=== PATIENT | male | born 1935 | race Caucasian/White ===

== ENCOUNTER 2016-09-10 16:53 | Inpatient (IN) | payer OTHER, MEDICARE ==
[~2016-09-10] VITALS: Ht 190.5 cm; Wt 70.0 kg
[~2016-09-10 16:53] MED LIST: CIME300T PO; MEDR4PAK3 PO; POLY119S PO; Z.0.UNKNOWN
[2016-09-10 16:54] VITALS: BP 161/67; PULSE 65; RESP 15; TEMP 98.2; O2SAT 95
[2016-09-10 17:11] VITALS: BP 160/74; PULSE 76; RESP 20; O2SAT 96
[2016-09-10] MEDS ORDERED: DOXA1TAB34 PO (17:11)
[2016-09-10] MEDS ORDERED: DIGO0.25 PO (17:11)
[2016-09-10] MEDS ORDERED: OMEP20TA PO (17:11)
[2016-09-10] MEDS ORDERED: TAMS0.4C4 PO (17:11)
[2016-09-10] MEDS ORDERED: TRAZ50TA12 PO (17:11)
[2016-09-10] MEDS ORDERED: DILT60TA33 PO (17:11)
[2016-09-10] MEDS ORDERED: LOVA20TA PO (17:11)
[2016-09-10] MEDS ORDERED: SODIUM CHLORIDE 0.9% FLUSH 5 ML FLUSH IVF PRN (17:15)
[2016-09-10 17:24] VITALS: O2SAT 97
--- NOTE | 2016-09-10 17:24 | PD ---
HPI Chief Complaint: Abdominal Pain Time Seen by Provider: 17:20 Travel History International Travel<30 days: No Contact w/Intl Traveler<30days: No Traveled to known affect area: No History of Present Illness HPI Patient is an 7-year-old male presents to the emergency department for evaluation of abdominal pain. Patient states it is ongoing for 1 month but states it was worse today. Patient states the pain is between his pelvis and his belly button. He does report frequency with urination but denies any dysuria, hematuria, nausea, vomiting, fevers. He reports several watery bowel movements today. Patient's past medical history includes hypertension, hyperlipidemia, BPH, insomnia and atrial fibrillation. PFSH Past Medical History Atrial Fibrillation: Yes Blood Disorders: No High Cholesterol: Yes Insomnia: Yes Medical other: Yes (BPH) Tetanus Vaccination: > 5 Years Past Surgical History Surgical History: No Previous Surgery Social History Alcohol Use: Yes (4-5 beers daily) Tobacco Use: Yes Substance Use: No Allergies-Medications (Allergen,Severity, Reaction): Coded Allergies: No Known Allergies (Verified , 09/10/16) Uncoded Allergies: NKA (Allergy, Unknown, 03/31/03) Reported Meds & Prescriptions Reported Meds & Active Scripts Active Reported Doxazosin (Doxazosin Mesylate) 4 Mg Tab 4 Mg PO DAILY Trazodone (Trazodone HCl) 50 Mg Tab 50 Mg PO TID Omeprazole 20 Mg Tab 20 Mg PO DAILY Tamsulosin (Tamsulosin HCl) 0.4 Mg Cap 0.4 Mg PO HS Digoxin 0.25 Mg Tab 0.25 Mg PO DAILY Cardizem (Diltiazem HCl) 60 Mg Tab 180 Mg PO DAILY Lovastatin 20 Mg Tab 20 Mg PO DAILY Review of Systems Except as stated in HPI: all other systems reviewed are Neg General / Constitutional: No: Fever, Chills HENT: No: Headaches Cardiovascular: No: Chest Pain or Discomfort Respiratory: No: Shortness of Breath Gastrointestinal: Positive: Diarrhea, Abdominal Pain, No: Nausea, Vomiting, Loss of Appetite Genitourinary: Positive: Frequency, Pelvic Pain, No: Dysuria, Hematuria Neurologic: No: Dizziness Physical Exam Narrative GENERAL: Thin, well-developed, alert elderly judgment. Resting comfortably in no acute distress. SKIN: Warm and dry. HEAD: Atraumatic. Normocephalic. EYES: Pupils equal and round. No scleral icterus. No injection or drainage. ENT: No nasal bleeding or discharge. Mucous membranes pink and moist. NECK: Trachea midline. No JVD. CARDIOVASCULAR: Irregularly irregular. No murmur appreciated. RESPIRATORY: No accessory muscle use. Diminished in bases, no wheezes, rhonchi , or rales noted. Breath sounds equal bilaterally. GASTROINTESTINAL: Abdomen soft, mildly tender to palpation in suprapubic region. , nondistended. Hepatic and splenic margins not palpable. Positive bowel sounds , no rebound, no guarding. MUSCULOSKELETAL: No obvious deformities. No clubbing. No cyanosis. No edema. NEUROLOGICAL: Awake and alert. No obvious cranial nerve deficits. Motor grossly within normal limits. Normal speech. PSYCHIATRIC: Appropriate mood and affect; insight and judgment normal. Data Data Last Documented VS Vital Signs Date Time Temp Pulse Resp B/P Pulse Ox O2 Delivery O2 Flow Rate FiO2 09/10/16 19:08 0 09/10/16 19:07 98.4 78 155/67 95 Room Air Orders Complete Blood Count With Diff (09/10/16 17:11) Comprehensive Metabolic Panel (09/10/16 17:11) Lipase (09/10/16 17:11) Lactic Acid (09/10/16 17:11) Urinalysis - C+S If Indicated (09/10/16 17:11) Ct Abd/Pel W Iv Contrast(Rout) (09/10/16 17:11) Iv Access Insert/Monitor (09/10/16 17:11) Ecg Monitoring (09/10/16 17:11) Oximetry (09/10/16 17:11) Sodium Chloride 0.9% Flush (Ns Flush) (09/10/16 17:15) Bladder Scan PRN (09/10/16 17:11) Electrocardiogram (09/10/16 ) Iohexol 350 Inj (Omnipaque 350 Inj) (09/10/16 18:46) Labs Laboratory Tests Test 09/10/16 17:20 White Blood Count 11.0 TH/MM3 Red Blood Count 4.66 MIL/MM3 Hemoglobin 14.6 GM/DL Hematocrit 41.7 % Mean Corpuscular Volume 89.4 FL Mean Corpuscular Hemoglobin 31.4 PG Mean Corpuscular Hemoglobin 35.2 % Concent Red Cell Distribution Width 14.0 % Platelet Count 174 TH/MM3 Mean Platelet Volume 8.2 FL Neutrophils (%) (Auto) 80.9 % Lymphocytes (%) (Auto) 8.9 % Monocytes (%) (Auto) 9.4 % Eosinophils (%) (Auto) 0.4 % Basophils (%) (Auto) 0.4 % Neutrophils # (Auto) 8.9 TH/MM3 Lymphocytes # (Auto) 1.0 TH/MM3 Monocytes # (Auto) 1.0 TH/MM3 Eosinophils # (Auto) 0.0 TH/MM3 Basophils # (Auto) 0.0 TH/MM3 CBC Comment DIFF FINAL Differential Comment Urine Color YELLOW Urine Turbidity CLEAR Urine pH 6.0 Urine Specific Star 1.014 Urine Protein NEG mg/dL Urine Glucose (UA) NEG mg/dL Urine Ketones NEG mg/dL Urine Occult Blood SMALL Urine Nitrite NEG Urine Bilirubin NEG Urine Urobilinogen LESS THAN 2.0 MG/DL Urine Leukocyte Esterase TRACE Urine RBC 2 /hpf Urine WBC 2 /hpf Urine Squamous Epithelial 1 /hpf Cells Urine Bacteria RARE /hpf Urine Mucus FEW /lpf Microscopic Urinalysis Comment CULT NOT INDICATED Sodium Level 137 MEQ/L Potassium Level 4.4 MEQ/L Chloride Level 102 MEQ/L Carbon Dioxide Level 25.8 MEQ/L Anion Gap 9 MEQ/L Blood Urea Nitrogen 15 MG/DL Creatinine 0.69 MG/DL Estimat Glomerular Filtration 110 ML/MIN Rate Random Glucose 109 MG/DL Lactic Acid Level 1.1 mmol/L Calcium Level 9.2 MG/DL Total Bilirubin 0.5 MG/DL Aspartate Amino Transf 19 U/L (AST/SGOT) Alanine Aminotransferase 34 U/L (ALT/SGPT) Alkaline Phosphatase 81 U/L Total Protein 7.9 GM/DL Albumin 4.0 GM/DL Lipase 217 U/L [facility] Medical Decision Making Medical Screen Exam Complete: Yes Emergency Medical Condition: Yes Interpretation(s) Last Impressions Abdomen/Pelvis CT 09/10/16 1711 Signed Impressions: Service Date/Time: Saturday, September 10, 2016 18:41 - CONCLUSION: 1. Mild periportal edema the liver which can be associated with hepatitis. Otherwise no acute findings in the remainder of the abdomen and pelvis. Approximately 4.4 cm diverticulum noted off the distal duodenum or proximal jejunum. Moderate coronary calcifications. Omi Herndon MD Laboratory Tests Test 09/10/16 17:20 White Blood Count 11.0 TH/MM3 Red Blood Count 4.66 MIL/MM3 Hemoglobin 14.6 GM/DL Hematocrit 41.7 % Mean Corpuscular Volume 89.4 FL Mean Corpuscular Hemoglobin 31.4 PG Mean Corpuscular Hemoglobin 35.2 % Concent Red Cell Distribution Width 14.0 % Platelet Count 174 TH/MM3 Mean Platelet Volume 8.2 FL Neutrophils (%) (Auto) 80.9 % Lymphocytes (%) (Auto) 8.9 % Monocytes (%) (Auto) 9.4 % Eosinophils (%) (Auto) 0.4 % Basophils (%) (Auto) 0.4 % Neutrophils # (Auto) 8.9 TH/MM3 Lymphocytes # (Auto) 1.0 TH/MM3 Monocytes # (Auto) 1.0 TH/MM3 Eosinophils # (Auto) 0.0 TH/MM3 Basophils # (Auto) 0.0 TH/MM3 CBC Comment DIFF FINAL Differential Comment Urine Color YELLOW Urine Turbidity CLEAR Urine pH 6.0 Urine Specific Star 1.014 Urine Protein NEG mg/dL Urine Glucose (UA) NEG mg/dL Urine Ketones NEG mg/dL Urine Occult Blood SMALL Urine Nitrite NEG Urine Bilirubin NEG Urine Urobilinogen LESS THAN 2.0 MG/DL Urine Leukocyte Esterase TRACE Urine RBC 2 /hpf Urine WBC 2 /hpf Urine Squamous Epithelial 1 /hpf Cells Urine Bacteria RARE /hpf Urine Mucus FEW /lpf Microscopic Urinalysis Comment CULT NOT INDICATED Sodium Level 137 MEQ/L Potassium Level 4.4 MEQ/L Chloride Level 102 MEQ/L Carbon Dioxide Level 25.8 MEQ/L Anion Gap 9 MEQ/L Blood Urea Nitrogen 15 MG/DL Creatinine 0.69 MG/DL Estimat Glomerular Filtration 110 ML/MIN Rate Random Glucose 109 MG/DL Lactic Acid Level 1.1 mmol/L Calcium Level 9.2 MG/DL Total Bilirubin 0.5 MG/DL Aspartate Amino Transf 19 U/L (AST/SGOT) Alanine Aminotransferase 34 U/L (ALT/SGPT) Alkaline Phosphatase 81 U/L Total Protein 7.9 GM/DL Albumin 4.0 GM/DL Lipase 217 U/L Vital Signs Date Time Temp Pulse Resp B/P Pulse Ox O2 Delivery O2 Flow Rate FiO2 09/10/16 17:24 97 09/10/16 17:11 76 20 160/74 96 09/10/16 16:54 98.2 65 15 161/67 95 Differential Diagnosis Urinary tract infection versus urinary obstruction versus an enlarged prostate versus other Narrative Course Patient is an 81-year-old male presenting to emergency from with suprapubic pain and pressure has been ongoing for 1 month. Patient states he got worse today so he presented to the emergency department. Labs and imaging were ordered and pending. EKG shows atrial fibrillation with a rate of 82. Patient has a history of the same. CBC with elevated neutrophils, otherwise unremarkable Lactic acid is normal, chemistry is unremarkable, urinalysis is unremarkable with the exception of a small amount of occult blood. Patient is on tamsulosin as well as doxazosin for enlarged prostate. Which could be contributing to urinary retention. After patient urinated his bladder was scanned revealing less than 200 cc of urine in the bladder. CT scan of the abdomen and pelvis Mild periportal edema the liver which can be associated with hepatitis. Otherwise no acute findings in the remainder of the abdomen and pelvis. Approximately 4.4 cm diverticulum noted off the distal duodenum or proximal jejunum. Moderate coronary calcifications. Patient be kept under observation due to change in the presence of his abdominal pain. He is agreeable. Dr. Juan accepted admission. Patient placed under observation. Diagnosis Primary Impression: Abdominal pain Qualified Code: R10.30 - Lower abdominal pain Additional Impression: Diarrhea Qualified Code: R19.7 - Diarrhea, unspecified type Admitting Information Admitting Physician Requests: Observation Condition: Stable Nalini Medel Sep 10, 2016 17:24
[2016-09-10 17:35] LABS: AUTOMATED NEUTROPHIL # 8.9 TH/MM3 (1.8-7.7); BASOPHIL % 0.4 % (0.0-2.0); EOSINOPHIL % 0.4 % (0.0-4.0); HEMATOCRIT 41.7 % (39.0-51.0); HEMO FLAGS DIFF FINAL; LYMPH % 8.9 % (9.0-44.0); MEAN CELL VOLUME 89.4 FL (80.0-100.0); MEAN CORPUSCULAR HEMOGLOBIN 31.4 PG (27.0-34.0); MEAN CORPUSCULAR HGB CONC 35.2 % (32.0-36.0); MONO % 9.4 % (0.0-8.0); NEUT % 80.9 % (16.0-70.0); PLATELET COUNT 174 TH/MM3 (150-450); RED BLOOD COUNT 4.66 MIL/MM3 (4.50-5.90)
[2016-09-10 17:46] LABS: BACTERIA, URINE RARE /hpf; BLOOD, URINE SMALL (NEG); GLUCOSE,URINE NEG (NEG); KETONE, URINE NEG (NEG); MUCUS URINE FEW /lpf (OCC); NITRITE,URINE NEG (NEG); SQUAMOUS EPITHELIAL CELL URINE 1 /hpf (0-5); URINE COLOR YELLOW (YELLW/STRAW)
[2016-09-10 17:49] LABS: COMMENT (UR) CULT NOT INDICATED; CULTURE IF INDICATED CULT NOT INDICATED
[2016-09-10 18:14] LABS: ALT (GPT) 34 U/L (12-78); ANION GAP 9 MEQ/L (5-15); AST (GOT) 19 U/L (15-37); BICARBONATE 25.8 MEQ/L (21.0-32.0); BLOOD UREA NITROGEN 15 MG/DL (7-18); CHLORIDE 102 MEQ/L (98-107); GLOMERULAR FILTRATION RATE 110 ML/MIN (>89); POTASSIUM 4.4 MEQ/L (3.5-5.1); SODIUM (NA) 137 MEQ/L (136-145)
[2016-09-10 18:17] LABS: ALKALINE PHOSPHATASE 81 U/L (45-117); TOTAL BILIRUBIN ADULT 0.5 MG/DL (0.2-1.0)
[2016-09-10] MEDS ORDERED: IOHEXOL 350 MG/ML 10 ML VIAL (for RAD DIAG) IV ONE (18:46)
[2016-09-10 19:07] VITALS: BP 155/67; PULSE 78; RESP 18; TEMP 98.4; O2SAT 95
--- NOTE | 2016-09-10 19:26 | RADRPT ---
EXAM DATE/TIME: 09/10/2016 18:41 [facility] COMPARISON: No previous studies available for comparison. INDICATIONS : Abdomen pain for one month. IV CONTRAST: 96 cc Omnipaque 350 (iohexol) IV ORAL CONTRAST: No oral contrast ingested. RADIATION DOSE: 5.96 CTDIvol (mGy) MEDICAL HISTORY : A Fib SURGICAL HISTORY : None. ENCOUNTER: Initial ACUITY: 1 day PAIN SCALE: 5/10 LOCATION: Abdomen TECHNIQUE: Volumetric scanning of the abdomen and pelvis was performed. Using automated exposure control and ad justment of the mA and/or kV according to patient size, radiation dose was kept as low as reasonably achievable to obtain optimal diagnostic quality images. FINDINGS: Minimal dependent atelectasis in the lungs. There is some mild periportal edema the liver. Pancreas, spleen, adrenals and kidneys demonstrate no acute findings. No bowel obstruction. No free air or free fluid. No adenopathy. Atherosclerotic aorta and branches wi thout aneurysm. No acute bony abnormalities. CONCLUSION: 1. Mild periportal edema the liver which can be associated with hepatitis. Otherwise no acute finding s in the remainder of the abdomen and pelvis. Approximately 4.4 cm diverticulum noted off the distal duodenum or proximal jejunum. Moderate coronary calcifications. Omi Herndon MD on September 10, 2016 at 19:19 Board Certified Radiologist. This report was verified electronically.
--- NOTE | 2016-09-10 20:59 | HHI.HP ---
[facility] Service [facility] Primary Care Physician Maikol Blackman MD Admission Diagnosis ABD PAIN, DIARRHEA Diagnoses: Chief Complaint: Abdominal pain Travel History International Travel<30 Days: No Contact w/Intl Traveler <30 Da: No Traveled to Known Affected Are: No History of Present Illness History from patient, ER provider communication, and review of medical records. Patient reported that he came to the hospital because he has been having abdominal pain. He stated that this pain has started a few months ago but is getting worse in the past few days. He reports of diarrhea. However states that it was more of soft loose stool a few times a day. He states is not much amount. More like in the tissue paper when he wipes. He denies any associated fever. Denies any nausea or vomiting. When asked but with abdominal pain is, patient mostly points to the suprapubic area. Patient takes aspirin at home on a as needed basis. He also takes ibuprofen twice a day. He stated that he has osteoarthritis for which he was taking these medications. He reports that his abdominal pain is much better every time he drinks milk. Patient states he has had colonoscopy previously and that it was normal. However never had endoscopy. When asked about melena, patient status some of his loose bowel movements at times would be exploratory and would be black in color. Denies being on iron pills at home. Patient denies any burning when he urinates or pain when he urinates. However he states that he has BPH and does get up in the middle of the night about 5 times a night to urinate. He does have hesitancy/urgency/weak stream. Review of Systems Except as stated in HPI: all other systems reviewed are Neg Past Family Social History Past Medical History Hypertension Atrial fibrillation BPH Past Surgical History Left shoulder replacement Reported Medications Patient's medications listed in EMRreviewed. Patient stated that he brought a list of his medications to hospital and went through with a pharmacy technician program director. Allergies: Coded Allergies: No Known Allergies (Verified , 09/10/16) Uncoded Allergies: NKA (Allergy, Unknown, 03/31/03) Family History Reports of family history of bladder cancer in his son who is currently being treated for it. Social History Smokes about a pack a day. Denies any alcohol abuse or drug abuse. Does drink about 2 beers a day. Physical Exam Vital Signs Vital Signs Date Time Temp Pulse Resp B/P Pulse Ox O2 Delivery O2 Flow Rate FiO2 09/10/16 19:08 0 09/10/16 19:07 98.4 78 18 155/67 95 Room Air 09/10/16 17:24 97 09/10/16 17:11 76 20 160/74 96 09/10/16 16:54 98.2 65 15 161/67 95 Physical Exam GENERAL: This is a well-nourished, well-developed patient, in no apparent distress. SKIN: No rashes, ecchymoses or lesions. Cool and dry. HEAD: Atraumatic. Normocephalic. No temporal or scalp tenderness. EYES: No scleral icterus. No injection or drainage. ENT: Nose without bleeding, purulent drainage or septal hematoma. Airway patent. NECK: Trachea midline. No JVD CARDIOVASCULAR: Regular rate and rhythm without murmurs, gallops, or rubs. RESPIRATORY: Clear to auscultation. Breath sounds equal bilaterally. No wheezes , rales, or rhonchi. GASTROINTESTINAL: Abdomen soft, non-tender, nondistended.No guarding. Mild suprapubic tenderness. MUSCULOSKELETAL: Extremities without clubbing, cyanosis, or edema. No calf tenderness. NEUROLOGICAL: Awake and alert. No focal deficits. Normal speech. Laboratory Laboratory Tests Test 09/10/16 17:20 White Blood Count 11.0 Red Blood Count 4.66 Hemoglobin 14.6 Hematocrit 41.7 Mean Corpuscular Volume 89.4 Mean Corpuscular Hemoglobin 31.4 Mean Corpuscular Hemoglobin 35.2 Concent Red Cell Distribution Width 14.0 Platelet Count 174 Mean Platelet Volume 8.2 Neutrophils (%) (Auto) 80.9 Lymphocytes (%) (Auto) 8.9 Monocytes (%) (Auto) 9.4 Eosinophils (%) (Auto) 0.4 Basophils (%) (Auto) 0.4 Neutrophils # (Auto) 8.9 Lymphocytes # (Auto) 1.0 Monocytes # (Auto) 1.0 Eosinophils # (Auto) 0.0 Basophils # (Auto) 0.0 CBC Comment DIFF FINAL Differential Comment Urine Color YELLOW Urine Turbidity CLEAR Urine pH 6.0 Urine Specific [place] 1.014 Urine Protein NEG Urine Glucose (UA) NEG Urine Ketones NEG Urine Occult Blood SMALL Urine Nitrite NEG Urine Bilirubin NEG Urine Urobilinogen LESS THAN 2.0 Urine Leukocyte Esterase TRACE Urine RBC 2 Urine WBC 2 Urine Squamous Epithelial 1 Cells Urine Bacteria RARE Urine Mucus FEW Microscopic Urinalysis Comment CULT NOT INDICATED Sodium Level 137 Potassium Level 4.4 Chloride Level 102 Carbon Dioxide Level 25.8 Anion Gap 9 Blood Urea Nitrogen 15 Creatinine 0.69 Estimat Glomerular Filtration 110 Rate Random Glucose 109 Lactic Acid Level 1.1 Calcium Level 9.2 Total Bilirubin 0.5 Aspartate Amino Transf 19 (AST/SGOT) Alanine Aminotransferase 34 (ALT/SGPT) Alkaline Phosphatase 81 Total Protein 7.9 Albumin 4.0 Lipase 217 Result Diagram: 09/10/16 1720 09/10/16 172 Imaging Last 48 hours Impressions Abdomen/Pelvis CT 09/10/16 171 Signed Impressions: Service Date/Time: Saturday, September 10, 2016 18:41 - CONCLUSION: 1. Mild periportal edema the liver which can be associated with hepatitis. Otherwise no acute findings in the remainder of the abdomen and pelvis. Approximately 4.4 cm diverticulum noted off the distal duodenum or proximal jejunum. Moderate coronary calcifications. Omi Herndon MD Assessment and Plan Problem List: (1) Abdominal pain ICD Code: R10.9 Status: Acute (2) Diarrhea ICD Code: R19.7 Status: Acute Assessment and Plan Impression: Abdominal pain versus suprapubic painetiology unclear. However patient has been quite symptomatic. Denies family history of bladder cancer. Has recent NSAID use with report of melena. We'll need to rule out GI bleed versus intrinsic bladder problems. Hypertension Atrial fibrillation BPH Plan: Pantoprazole 40 mg daily, first dose now. Sucralfate 1 g by mouth every before meals and at bedtime, first dose now. Hemoglobin hematocrit repeat now. Stool for guaiac. GI consult for possible EGD. Patient is educated on use of NSAIDs. Regarding his pain in the suprapubic area, we would obtain ultrasound of the renal/bladder/prostate. Based on the above findings, we would consider urology consult. Patient states he is pretty much unremarkable for any acute pathology. Pain control with morphine 2 mg IV every 4 hours when necessary. DVT prophylaxiswith Lovenox. Discussed Condition With patient, ER [employer] Problem Qualifiers (1) Abdominal pain: Qualified Code: R10.30 - Lower abdominal pain (2) Diarrhea: Qualified Code: R19.7 - Diarrhea, unspecified type Diaz Juan MD Sep 10, 2016 20:59
[2016-09-10 21:00] VITALS: BP 123/68; PULSE 68; RESP 18; TEMP 98; O2SAT 97
[2016-09-10] MEDS ORDERED: NALOXONE HCL 0.4 MG/ML AMP IV PRN (21:30)
[2016-09-10] MEDS ORDERED: PANTOPRAZOLE SOD 40 MG DELAYED RELEASE TAB PO ONE (21:30)
[2016-09-10] MEDS ORDERED: SUCRALFATE 1 GM TAB PO ONE (21:30)
[2016-09-10] MEDS ORDERED: SODIUM CHLORIDE 0.9% FLUSH 5 ML FLUSH FLUSH PRN (21:30)
[2016-09-10 23:58] LABS: HEMATOCRIT 40.5 % (39.0-51.0); REVIEW FLAG FINAL
[2016-09-11] VITALS (8 sets, daily range): BP systolic 110–166; BP diastolic 62–78; PULSE 65–78; RESP 17–21; TEMP 98–98.4; O2SAT 93–98
[2016-09-11 04:17] LABS: AUTOMATED NEUTROPHIL # 5.9 TH/MM3 (1.8-7.7); BASOPHIL # 0.1 TH/MM3 (0-0.2); BASOPHIL % 0.6 % (0.0-2.0); EOSINOPHIL # 0.1 TH/MM3 (0-0.4); EOSINOPHIL % 1.5 % (0.0-4.0); HEMATOCRIT 41.9 % (39.0-51.0); HEMO FLAGS DIFF FINAL; LYMPH % 20.9 % (9.0-44.0); LYMPHOCYTE # 1.9 TH/MM3 (1.0-4.8); MEAN CELL VOLUME 89.6 FL (80.0-100.0); MEAN CORPUSCULAR HGB CONC 34.6 % (32.0-36.0); MONO % 10.8 % (0.0-8.0); NEUT % 66.2 % (16.0-70.0); PLATELET COUNT 180 TH/MM3 (150-450); RED BLOOD COUNT 4.67 MIL/MM3 (4.50-5.90); WHITE BLOOD COUNT 8.9 TH/MM3 (4.0-11.0)
[2016-09-11 04:42] LABS: BICARBONATE 29.4 MEQ/L (21.0-32.0); POTASSIUM 3.8 MEQ/L (3.5-5.1)
[2016-09-11] MEDS ORDERED: SUCRALFATE 1 GM TAB PO SCH (07:00)
[2016-09-11] MEDS: SODIUM CHLORIDE 0.9% FLUSH 5 ML FLUSH FLUSH SCH ×2 (09:00→21:11)
[2016-09-11] MEDS ORDERED: PANTOPRAZOLE SOD 40 MG DELAYED RELEASE TAB PO SCH (09:00)
--- NOTE | 2016-09-11 09:11 | PD.CONS ---
HPI History of Present Illness This is a 81 year old male patient who came to the ER for evaluation of abdominal pain. He reports that he has been having lower abdominal pain that he describes as mild cramping for about a month. This suddenly worsened yesterday and reports the pain was much more severe in nature. There is no radiation. He cannot identify any aggravating or alleviating factors. He has also been having frequent diarrhea with 6-8 loose yellowish stools per day. There is some report of intermittent melena, although the patient currently denies this. He also is denying any associated nausea, vomiting. He denies any fever, chills, diaphoretic episodes, weight loss, melena, or hematochezia. He does have GERD, but this is well controlled with omeprazole and he denies any breakthrough symptoms. He denies any recent travel, suspicious, antibiotic use, or sick contacts. He does report that he was evaluated with a colonoscopy about 3-4 months ago and that he had a polyp removed, but that it was otherwise normal. He cannot recall who did this. I did look at our office records and he has not been seen in our office. He does take Ibuprofen i po BID and occasional ASA use. He denies any hx of liver disease, GIB, or PUD. (Lupe Oden) PFSH Past Medical History Hypertension Atrial fibrillation BPH Hiatal hernia GERD Hyperlipidemia Past Surgical History Left shoulder replacement Colonoscopy (Lupe Oden) Coded Allergies: No Known Allergies (Verified , 09/10/16) Uncoded Allergies: NKA (Allergy, Unknown, 03/31/03) Medications Allergies Coded Allergies Type Severity Reaction Last Updated Verified No Known Allergies 09/10/16 Yes Uncoded Allergies Type Severity Reaction Last Updated Verified NKA Allergy Unknown 03/31/03 Active Scripts Medications Dose Route/Sig Days Date Category Doxazosin (Doxazosin Mesylate) 4 Mg Tab 4 Mg PO DAILY 09/10/16 Reported Trazodone (Trazodone HCl) 50 Mg Tab 50 Mg PO TID 09/10/16 Reported Omeprazole 20 Mg Tab 20 Mg PO DAILY 09/10/16 Reported Tamsulosin (Tamsulosin HCl) 0.4 Mg Cap 0.4 Mg PO HS 09/10/16 Reported Digoxin 0.25 Mg Tab 0.25 Mg PO DAILY 09/10/16 Reported Cardizem (Diltiazem HCl) 60 Mg Tab 180 Mg PO DAILY 09/10/16 Reported Lovastatin 20 Mg Tab 20 Mg PO DAILY 09/10/16 Reported Allergies Coded Allergies Type Severity Reaction Last Updated Verified No Known Allergies 09/10/16 Yes Uncoded Allergies Type Severity Reaction Last Updated Verified NKA Allergy Unknown 03/31/03 Active Scripts Medications Dose Route/Sig Days Date Category Doxazosin (Doxazosin Mesylate) 4 Mg Tab 4 Mg PO DAILY 09/10/16 Reported Trazodone (Trazodone HCl) 50 Mg Tab 50 Mg PO TID 09/10/16 Reported Omeprazole 20 Mg Tab 20 Mg PO DAILY 09/10/16 Reported Tamsulosin (Tamsulosin HCl) 0.4 Mg Cap 0.4 Mg PO HS 09/10/16 Reported Digoxin 0.25 Mg Tab 0.25 Mg PO DAILY 09/10/16 Reported Cardizem (Diltiazem HCl) 60 Mg Tab 180 Mg PO DAILY 09/10/16 Reported Lovastatin 20 Mg Tab 20 Mg PO DAILY 09/10/16 Reported Family History Reports of family history of bladder cancer in his son Social History 1 PPD x 65 years Does drink about 2 beers a day. No illicit drug use. (Lupe Oden) Review of Systems Constitutional: COMPLAINS OF: Fatigue Respiratory: DENIES: Cough Cardiovascular: DENIES: Chest pain Gastrointestinal: COMPLAINS OF: Abdominal pain, Diarrhea, DENIES: Black stools , Bloody stools, Constipation, Nausea, Vomiting, Heartburn, Hematemesis Genitourinary: DENIES: Urgency, Hematuria, Dysuria Integumentary: DENIES: Abnormal pigmentation Hematologic/lymphatic: DENIES: Bruising Psychiatric: DENIES: Confusion (Lupe Oden) GI Exam Vitals I&O Vital Signs Date Time Temp Pulse Resp B/P Pulse Ox O2 Delivery O2 Flow Rate FiO2 09/11/16 07:17 98.1 68 17 139/78 97 09/11/16 04:01 65 09/11/16 04:00 98.0 78 18 126/74 98 09/11/16 00:00 98.4 77 18 132/78 98 09/10/16 21:00 98.0 68 18 123/68 97 09/10/16 19:08 0 09/10/16 19:07 98.4 78 18 155/67 95 Room Air 09/10/16 17:24 97 09/10/16 17:11 76 20 160/74 96 09/10/16 16:54 98.2 65 15 161/67 95 Imaging Last Impressions Abdomen/Pelvis CT 09/10/16 1711 Signed Impressions: Service Date/Time: Saturday, September 10, 2016 18:41 - CONCLUSION: 1. Mild periportal edema the liver which can be associated with hepatitis. Otherwise no acute findings in the remainder of the abdomen and pelvis. Approximately 4.4 cm diverticulum noted off the distal duodenum or proximal jejunum. Moderate coronary calcifications. Omi Herndon MD Laboratory Test 09/10/16 09/10/16 09/11/16 17:20 23:45 03:53 White Blood Count 11.0 TH/MM3 8.9 TH/MM3 Red Blood Count 4.66 MIL/MM3 4.67 MIL/MM3 Hemoglobin 14.6 GM/DL 14.2 GM/DL 14.5 GM/DL Hematocrit 41.7 % 40.5 % 41.9 % Mean Corpuscular Volume 89.4 FL 89.6 FL Mean Corpuscular Hemoglobin 31.4 PG 31.0 PG Mean Corpuscular Hemoglobin 35.2 % 34.6 % Concent Red Cell Distribution Width 14.0 % 14.0 % Platelet Count 174 TH/MM3 180 TH/MM3 Mean Platelet Volume 8.2 FL 7.9 FL Neutrophils (%) (Auto) 80.9 % 66.2 % Lymphocytes (%) (Auto) 8.9 % 20.9 % Monocytes (%) (Auto) 9.4 % 10.8 % Eosinophils (%) (Auto) 0.4 % 1.5 % Basophils (%) (Auto) 0.4 % 0.6 % Neutrophils # (Auto) 8.9 TH/MM3 5.9 TH/MM3 Lymphocytes # (Auto) 1.0 TH/MM3 1.9 TH/MM3 Monocytes # (Auto) 1.0 TH/MM3 1.0 TH/MM3 Eosinophils # (Auto) 0.0 TH/MM3 0.1 TH/MM3 Basophils # (Auto) 0.0 TH/MM3 0.1 TH/MM3 CBC Comment DIFF FINAL DIFF FINAL Differential Comment Urine Color YELLOW Urine Turbidity CLEAR Urine pH 6.0 Urine Specific [place] 1.014 Urine Protein NEG mg/dL Urine Glucose (UA) NEG mg/dL Urine Ketones NEG mg/dL Urine Occult Blood SMALL Urine Nitrite NEG Urine Bilirubin NEG Urine Urobilinogen LESS THAN 2.0 MG/DL Urine Leukocyte Esterase TRACE Urine RBC 2 /hpf Urine WBC 2 /hpf Urine Squamous Epithelial 1 /hpf Cells Urine Bacteria RARE /hpf Urine Mucus FEW /lpf Microscopic Urinalysis Comment CULT NOT INDICATED Sodium Level 137 MEQ/L 137 MEQ/L Potassium Level 4.4 MEQ/L 3.8 MEQ/L Chloride Level 102 MEQ/L 101 MEQ/L Carbon Dioxide Level 25.8 MEQ/L 29.4 MEQ/L Anion Gap 9 MEQ/L 7 MEQ/L Blood Urea Nitrogen 15 MG/DL 11 MG/DL Creatinine 0.69 MG/DL 0.71 MG/DL Estimat Glomerular Filtration 110 ML/MIN 106 ML/MIN Rate Random Glucose 109 MG/DL 82 MG/DL Lactic Acid Level 1.1 mmol/L Calcium Level 9.2 MG/DL 8.7 MG/DL Total Bilirubin 0.5 MG/DL Aspartate Amino Transf 19 U/L (AST/SGOT) Alanine Aminotransferase 34 U/L (ALT/SGPT) Alkaline Phosphatase 81 U/L Total Protein 7.9 GM/DL Albumin 4.0 GM/DL Lipase 217 U/L Physical Examination HEENT: Normocephalic; atraumatic; no jaundice. CHEST: CTA CARDIAC: Irregular ABDOMEN: Soft, nondistended, nontender; no hepatosplenomegaly; bowel sounds are present in all four quadrants. EXTREMITIES: No clubbing, cyanosis, or edema. SKIN: Normal; no rash; no jaundice. GLASS DRILLER: No focal deficits; alert and oriented times three. (Lupe Oden) Assessment and Plan Plan ASSESSMENT: - Abdominal Pain. Abdomen/Pelvis CT (09/10/16)----> 1. Mild periportal edema the liver which can be associated with hepatitis. Otherwise no acute findings in the remainder of the abdomen and pelvis. Approximately 4.4 cm diverticulum noted off the distal duodenum or proximal jejunum. Moderate coronary calcifications. Lower abdominal cramping x 1 month, worsening yesterday. States he has had lower abdominal cramping x 1 month, worsening yesterday. (+) Diarrhea. Denies N/V/Melena- although this is mentioned in EMR. Denies weight loss. Last colonoscopy 3-4 months ago but cannot recall who did this. - Diarrhea. Denies travel, suspicious food, abx use. Frequent diarrhea with 6- 8 loose yellowish stools per day. Stool studies - Abnormal imaging of liver. Mild periportal edema of the liver. Will get hepatitis profile. LFTs normal. - GERD. PPI - Afib, Hyperlipidemia, BPH per primary PLAN: - Plan for egd/colonoscopy in am - Obtain consents - Clear liquids - NPO after MN - Golytely prep - Hold lovenox after MN - Stool studies - PPI - CBC, CMP, PT/INR in am - Supportive care - Further recommendations to follow based on results of above - Pt seen and examined by Dr. Reynolds and myself and this note is written on his behalf (Lupe Oden) Lupe Oden Sep 11, 2016 09:11 Bruno Reynolds MD Sep 11, 2016 19:05
--- NOTE | 2016-09-11 09:19 | RADRPT ---
EXAM DATE/TIME: 09/11/2016 08:40 [facility] COMPARISON: CT ABDOMEN & PELVIS W CONTRAST, September 10, 2016, 18:41. EXTERNAL COMPARISON : [facility], CT Abdomen & Pelvis with contrast, September 20, 2012 INDICATIONS : Suprapubic pain. MEDICAL HISTORY : Hypercholesterolemia. Atrial fibrillation. Melanoma. Bladder retention. SURGICAL HISTORY : Right nare removal. ENCOUNTER: Initial ACUITY: 1 day PAIN SCORE: 1/10 LOCATION: Bilateral flank MEASUREMENTS: RIGHT KIDNEY: 14.4 x 5.0 x 6.0 cm LEFT KIDNEY: 12.5 x 4.7 x 5.1 cm FINDINGS: RIGHT KIDNEY: Renal cortex is normal in thickness and echotexture. There is a midpole 7 mm calyceal nonobstructing stones suggested and a 1.5 cm cyst of the lower pole. LEFT KIDNEY: Renal cortex is normal in thickness and echotexture. No hydronephrosis, stone, or mass. BLADDER: Within normal limits given the degree of distension. Probable mild prostate enlargement CONCLUSION: Mild prostate enlargement. Small 1.5 cm cyst lower pole right kidney and probable 7 mm nonobstructing calyceal stone midpole right kidney. Otherwise negative. Fermin Fernández MD on September 11, 2016 at 9:15 Board Certified Radiologist. This report was verified electronically.
[2016-09-11] MEDS: SUCRALFATE 1 GM/10 ML CUP PO SCH ×3 (11:39→21:10)
[2016-09-11] MEDS: DOXAZOSIN MESYLATE 4 MG TAB PO SCH (11:39)
[2016-09-11] MEDS: DILTIAZEM-CD 180 MG CAP ER PO SCH (11:40)
[2016-09-11] MEDS: traZODone HCL 50 MG TAB PO SCH ×3 (11:40→16:53)
[2016-09-11] MEDS: DIGOXIN 0.25 MG TAB PO SCH (11:40)
[2016-09-11] MEDS: PANTOPRAZOLE SOD 20 MG DELAYED RELEASE TAB PO SCH (11:40)
[2016-09-11] MEDS: ENOXAPARIN SODIUM 40 MG/0.4 ML SYRINGE SQ SCH (11:41)
--- NOTE | 2016-09-11 12:57 | HHI.PR ---
Subjective Remarks Follow up on patient with abdominal pain and diarrhea. States he is feeling better now. Several month h/o ongoing suprapubic pain with yellowish watery loose stools up to 6-8 daily. Pain became much more severe yesterday leading to admission. Denies any association with meals. Patient denies any weight loss, fever or chills. Still with frequent loose stools 3-4/day. No abdominal pain at present. Poor appetite which is not new. No N/V. Objective Vitals Vital Signs Date Time Temp Pulse Resp B/P Pulse Ox O2 Delivery O2 Flow Rate FiO2 09/11/16 12:22 98.2 65 18 166/75 95 09/11/16 07:17 98.1 68 17 139/78 97 09/11/16 04:01 65 09/11/16 04:00 98.0 78 18 126/74 98 09/11/16 00:00 98.4 77 18 132/78 98 09/10/16 21:00 98.0 68 18 123/68 97 09/10/16 19:08 0 09/10/16 19:07 98.4 78 18 155/67 95 Room Air 09/10/16 17:24 97 09/10/16 17:11 76 20 160/74 96 09/10/16 16:54 98.2 65 15 161/67 95 Result Diagram: 09/11/16 0353 09/11/16 0353 Imaging Last 24 hours Impressions Renal Ultrasound 09/11/16 0000 Signed Impressions: Service Date/Time: Sunday, September 11, 2016 08:40 - CONCLUSION: Mild prostate enlargement. Small 1.5 cm cyst lower pole right kidney and probable 7 mm nonobstructing calyceal stone midpole right kidney. Otherwise negative. Fermin Fernández MD Abdomen/Pelvis CT 09/10/16 1711 Signed Impressions: Service Date/Time: Saturday, September 10, 2016 18:41 - CONCLUSION: 1. Mild periportal edema the liver which can be associated with hepatitis. Otherwise no acute findings in the remainder of the abdomen and pelvis. Approximately 4.4 cm diverticulum noted off the distal duodenum or proximal jejunum. Moderate coronary calcifications. Omi Herndon MD Objective Remarks GENERAL: This is a well-nourished, well-developed patient, in no apparent distress. SKIN: No rashes, ecchymoses or lesions. Cool and dry. HEAD: Atraumatic. Normocephalic. No temporal or scalp tenderness. EYES: No scleral icterus. No injection or drainage. ENT: Nose without bleeding, purulent drainage or septal hematoma. Airway patent. NECK: Trachea midline. No JVD CARDIOVASCULAR: Regular rate and rhythm without murmurs, gallops, or rubs. RESPIRATORY: Clear to auscultation. Breath sounds equal bilaterally. No wheezes , rales, or rhonchi. GASTROINTESTINAL: Abdomen soft, non-tender, nondistended.No guarding. Mild suprapubic tenderness. MUSCULOSKELETAL: Extremities without clubbing, cyanosis, or edema. No calf tenderness. NEUROLOGICAL: Awake and alert. No focal deficits. Normal speech. Medications and IVs Active Medications Digoxin (Lanoxin) 0.25 mg DAILY PO Last administered on 09/11/16 11:40; Admin Dose 0.25 MG; Start 09/11/16 at 09:00 Diltiazem HCl (Cardizem Cd) 180 mg DAILY PO Last administered on 09/11/16 11:40 ; Admin Dose 180 MG; Start 09/11/16 at 09:00 Doxazosin Mesylate (Cardura) 4 mg DAILY PO Last administered on 09/11/16 11:39 ; Admin Dose 4 MG; Start 09/11/16 at 09:00 Enoxaparin Sodium (Lovenox Inj) 40 mg Q24H SQ Last administered on 09/11/16 11: 41; Admin Dose 40 MG; Start 09/11/16 at 09:00 Iohexol (Omnipaque 350 Inj) 96 ml MPVK-MED ONCE IV Last administered on 18:46; Admin Dose 96 ML; Start 09/10/16 at 18:46; Stop 09/10/16 at 18:47; Status DC IV Flush (NS Flush) 2 ml BID FLUSH; Start 09/11/16 at 09:00 IV Flush (NS Flush) 2 ml UNSCH PRN FLUSH; Start 09/10/16 at 21:30 IV Flush (NS Flush) 2 ml UNSCH PRN IVF; Start 09/10/16 at 17:15; Stop 09/11/16 at 00:41; Status DC Morphine Sulfate (Morphine Inj) 2 mg Q4HR PRN IV PUSH; Start 09/11/16 at 00:45 Naloxone HCl (Narcan Inj) 0.4 mg UNSCH PRN IV; Start 09/10/16 at 21:30 Pantoprazole Sodium (Protonix) 20 mg DAILY PO Last administered on 09/11/16 11: 40; Admin Dose 20 MG; Start 09/11/16 at 09:00 Pantoprazole Sodium (Protonix) 40 mg DAILY PO; Start 09/11/16 at 09:00; Stop at 10:57; Status DC Pantoprazole Sodium (Protonix) 40 mg ONCE ONCE PO Last administered on 22:06; Admin Dose 40 MG; Start 09/10/16 at 21:30; Stop 09/10/16 at 21:34; Status DC Polyethylene Glycol/ Electrolytes (Colyte Liq) 4,000 ml ONCE ONCE PO; Start at 16:00; Stop 09/11/16 at 16:01 Pravastatin Sodium (Pravachol) 20 mg DAILY PO; Start 09/11/16 at 09:00 Sucralfate (Carafate Liq) 1 gm ACHS PO Last administered on 09/11/16 11:39; Admin Dose 1 GM; Start 09/11/16 at 11:00 Sucralfate (Carafate) 1 gm ACHS PO Last administered on 09/11/16 07:39; Admin Dose 1 GM; Start 09/11/16 at 07:00; Stop 09/11/16 at 10:49; Status DC Sucralfate (Carafate) 1 gm ONCE ONCE PO Last administered on 09/10/16 22:06; Admin Dose 1 GM; Start 09/10/16 at 21:30; Stop 09/10/16 at 21:35; Status DC Tamsulosin HCl (Flomax) 0.4 mg HS PO; Start 09/11/16 at 21:00 Trazodone HCl (Desyrel) 50 mg TID PO Last administered on 09/11/16 11:40; Admin Dose 50 MG; Start 09/11/16 at 09:00 A/P Problem List: (1) Abdominal pain ICD Code: R10.9 Status: Acute (2) Diarrhea ICD Code: R19.7 Status: Acute Assessment and Plan 81 yo male with PMHX of atrial fibrillation, HTN and BPH admitted with abdominal pain/suprapubic pain and diarrhea. Abdominal pain - improved since admission - IV pain meds prn - CT scan of the abdomen completed and reviewed by myself revealing mild periportal edema of the liver that can be associated with hepatitis and 4.4 cm diverticulum off the distal duodenum or proximal jejunum - Renal/bladder US reviewed by myself revealing (+)mild BPH, small 1.5cm cyst right kidney and a probable 7mm nonobstructing stone calyceal right kidney - GI following - very much appreciate their assistance. Scheduled for panendoscopy tomorrow. Hepatitis profile ordered. - clear liquid diet - c/w PPI - change Carafate from po to suspension Diarrhea with h/o black stools - hemodynamically stable - stool studies ordered by GI including CDiff - f/u on results - FOBT pending - supportive care Afib - rate controlled - c/w telemetry - c/w home meds HTN - well controlled at present - c/w home meds - monitor BP BPH - c/w home Flomax DVT prophylaxis - SCDs Written by Jazz Evans, acting as scribe for Dr. Walters on 09/11/16 at 12: 58. The documentation accurately reflects the work performed [id number] by me on at 12:58. Problem Qualifiers (1) Abdominal pain: Qualified Code: R10.30 - Lower abdominal pain (2) Diarrhea: Qualified Code: R19.7 - Diarrhea, unspecified type Jazz Evans PA-C Sep 11, 2016 12:57 Mich Walters DO Sep 11, 2016 16:20
--- NOTE | 2016-09-11 14:30 | EKG ---
Date Performed: 09/10/2016 Time Performed: 17:56:38 PTAGE: 81 years EKG: ATRIAL FIBRILLATION LEFT ANTERIOR FASCICULAR BLOCK INFERIOR MYOCARDIAL INFARCTION ABNORMAL ECG PREVIOUS TRACING : 05/29/2002 06.38 DOCTOR: Rohit Patricia Interpretating Date/Time 09/11/2016 14:27:27
[2016-09-11] MEDS ORDERED: PEG (High)/E-LYTE SOLN 4000 ML BTL PO ONE (16:00)
[2016-09-11] MEDS: PRAVASTATIN SOD 20 MG TAB PO SCH (16:53)
[2016-09-11] MEDS: TAMSULOSIN HCL 0.4 MG CAP PO SCH (21:10)
[2016-09-11 23:00] LABS: C. DIFF EPI 027 PRESUMPTIVE NEGATIVE (NEGATIVE); C. DIFF TOXIN PCR NEGATIVE (NEGATIVE)
[2016-09-12] VITALS (10 sets, daily range): BP systolic 98–180; BP diastolic 56–86; PULSE 56–97; RESP 16–21; TEMP 96.1–100.6; O2SAT 92–98
[2016-09-12 05:06] LABS: AUTOMATED NEUTROPHIL # 5.8 TH/MM3 (1.8-7.7); BASOPHIL # 0.1 TH/MM3 (0-0.2); BASOPHIL % 0.7 % (0.0-2.0); EOSINOPHIL # 0.2 TH/MM3 (0-0.4); EOSINOPHIL % 2.8 % (0.0-4.0); HEMATOCRIT 39.7 % (39.0-51.0); HEMO FLAGS DIFF FINAL; LYMPH % 20.5 % (9.0-44.0); LYMPHOCYTE # 1.8 TH/MM3 (1.0-4.8); MEAN CELL VOLUME 88.9 FL (80.0-100.0); MEAN CORPUSCULAR HGB CONC 34.8 % (32.0-36.0); MONO % 10.5 % (0.0-8.0); NEUT % 65.5 % (16.0-70.0); PLATELET COUNT 169 TH/MM3 (150-450); RED BLOOD COUNT 4.47 MIL/MM3 (4.50-5.90); WHITE BLOOD COUNT 8.8 TH/MM3 (4.0-11.0)
[2016-09-12 05:14] LABS: PROTHROMBIN TIME - PATIENT 11.2 SEC (9.8-11.6)
[2016-09-12 05:43] LABS: ALKALINE PHOSPHATASE 73 U/L (45-117); ALT (GPT) 31 U/L (12-78); ANION GAP 10 MEQ/L (5-15); AST (GOT) 24 U/L (15-37); BICARBONATE 25.5 MEQ/L (21.0-32.0); BLOOD UREA NITROGEN 10 MG/DL (7-18); CHLORIDE 102 MEQ/L (98-107); GLOMERULAR FILTRATION RATE 118 ML/MIN (>89); MAGNESIUM 2.1 MG/DL (1.5-2.5); POTASSIUM 3.3 MEQ/L (3.5-5.1); SODIUM (NA) 137 MEQ/L (136-145)
[2016-09-12] MEDS: SUCRALFATE 1 GM/10 ML CUP PO SCH ×4 (06:03→20:42)
[2016-09-12] MEDS ORDERED: POTASSIUM CL 40 MEQ/30 ML LIQ UDC PO ONE (07:30)
--- NOTE | 2016-09-12 07:56 | HHI.PR ---
Subjective Remarks Follow up on patient with abdominal pain and diarrhea. Complaining of right sided abdominal pain at present. Requesting Morphine. NPO awaiting panendoscopy later today. No fevers or chills. No N/V. Objective Vitals Vital Signs Date Time Temp Pulse Resp B/P Pulse Ox O2 Delivery O2 Flow Rate FiO2 09/12/16 07:48 75 19 143/86 96 09/12/16 05:39 98.4 74 21 98/56 98 09/12/16 02:32 83 09/12/16 00:00 98.4 78 18 105/58 98 09/11/16 20:00 98.4 78 21 110/62 94 09/11/16 16:00 98.3 70 18 138/71 93 09/11/16 12:22 98.2 65 18 166/75 95 09/11/16 08:00 73 Result Diagram: 09/12/1641109/12/16411 Objective Remarks GENERAL: This is a well-nourished, well-developed patient, in no apparent distress. SKIN: No rashes, ecchymoses or lesions. Cool and dry. HEAD: Atraumatic. Normocephalic. No temporal or scalp tenderness. EYES: No scleral icterus. No injection or drainage. ENT: Nose without bleeding, purulent drainage or septal hematoma. Airway patent. NECK: Trachea midline. No JVD CARDIOVASCULAR: Regular rate and rhythm without murmurs, gallops, or rubs. RESPIRATORY: Clear to auscultation. Breath sounds equal bilaterally. No wheezes , rales, or rhonchi. GASTROINTESTINAL: Abdomen soft, nondistended. No guarding. Tenderness to palpation RLQ. (+)palpable right hernia. MUSCULOSKELETAL: Extremities without clubbing, cyanosis, or edema. No calf tenderness. NEUROLOGICAL: Awake and alert. No focal deficits. Normal speech. Medications and IVs Current Medications Medications (Trade) Dose Ordered Sig/Ortega Route Start Time Stop Time Status Last Admin (NS Flush) 2 ml UNSCH PRN FLUSH 09/10/16 21:30 (NS Flush) 2 ml BID FLUSH 09/11/16 09:00 09/11/16 21:11 (Narcan Inj) 0.4 mg UNSCH PRN IV 09/10/16 21:30 (Morphine Inj) 2 mg Q4HR PRN IV PUSH 09/11/16 00:45 09/12/16 08:23 (Lanoxin) 0.25 mg DAILY PO 09/11/16 09:00 09/11/16 11:40 (Cardizem Cd) 180 mg DAILY PO 09/11/16 09:00 09/11/16 11:40 (Cardura) 4 mg DAILY PO 09/11/16 09:00 09/11/16 11:39 (Pravachol) 20 mg DAILY PO 09/11/16 09:00 09/11/16 16:53 (Protonix) 20 mg DAILY PO 09/11/16 09:00 09/11/16 11:40 (Flomax) 0.4 mg HS PO 09/11/16 21:00 09/11/16 21:10 (Desyrel) 50 mg TID PO 09/11/16 09:00 09/11/16 16:53 (Lovenox Inj) 40 mg Q24H SQ 09/11/16 09:00 09/11/16 11:41 (Carafate Liq) 1 gm ACHS PO 09/11/16 11:00 09/12/16 06:03 A/P Problem List: (1) Abdominal pain ICD Code: R10.9 Status: Acute (2) Diarrhea ICD Code: R19.7 Status: Acute Assessment and Plan 81 yo male with PMHX of atrial fibrillation, HTN and BPH admitted with abdominal pain/suprapubic pain and diarrhea. Abdominal pain - worsening this am - IV pain meds prn - CT scan of the abdomen completed and reviewed by myself revealing mild periportal edema of the liver that can be associated with hepatitis and 4.4 cm diverticulum off the distal duodenum or proximal jejunum - Renal/bladder US reviewed by myself revealing (+)mild BPH, small 1.5cm cyst right kidney and a probable 7mm nonobstructing stone calyceal right kidney - GI following - very much appreciate their assistance. Scheduled for panendoscopy later today. Hepatitis profile negative. - C/w clear liquid diet, advance per GI - c/w PPI - c/w Carafate Diarrhea with h/o black stools - hemodynamically stable - Cdiff negative - stool studies pending - f/u on results - FOBT neg - supportive care Afib - rate controlled - c/w telemetry - c/w home meds HTN - well controlled at present overall, single elevated measurement - c/w home meds at present dose for now - monitor BP - will adjust treatment as indicated BPH - c/w home Flomax Hypokalemia - replete - am labs to monitor trend DVT prophylaxis - SCDs Written by Jazz Evans, acting as scribe for Dr. Walters on 09/12/16 at 07: 55. . The documentation accurately reflects the work performed [id number] by me on at 07:55. Problem Qualifiers (1) Abdominal pain: Qualified Code: R10.30 - Lower abdominal pain (2) Diarrhea: Qualified Code: R19.7 - Diarrhea, unspecified type Jazz Evans PA-C Sep 12, 2016 07:56 Mich Walters DO Sep 12, 2016 18:00
[2016-09-12] MEDS: MORPHINE SULFATE 4 MG/ML INJ IV PUSH PRN ×3 (08:23→19:53)
[2016-09-12] MEDS: SODIUM CHLORIDE 0.9% FLUSH 5 ML FLUSH FLUSH SCH ×2 (09:00→20:43)
[2016-09-12] MEDS: traZODone HCL 50 MG TAB PO SCH ×3 (09:00→18:52)
[2016-09-12] MEDS ORDERED: PROPOFOL 200 MG/20 ML AMP IV ONE (11:06)
--- NOTE | 2016-09-12 12:26 | HHI.GIFU ---
Subjective Remarks doing ok, no new complains. less abdominal pain, tolerated prep Objective Vitals I&O Vital Signs Date Time Temp Pulse Resp B/P Pulse Ox O2 Delivery O2 Flow Rate FiO2 09/12/16 11:38 98.0 81 16 104/49 99 09/12/16 10:17 98.4 75 19 143/86 96 09/12/16 09:40 56 09/12/16 07:48 75 19 143/86 96 09/12/16 05:39 98.4 74 21 98/56 98 09/12/16 02:32 83 09/12/16 00:00 98.4 78 18 105/58 98 09/11/16 20:00 98.4 78 21 110/62 94 09/11/16 16:00 98.3 70 18 138/71 93 09/11/16 12:22 98.2 65 18 166/75 95 I/O 09/11/16 09/11/16 09/11/16 09/12/16 09/12/16 09/12/16 07:00 15:00 23:00 07:00 15:00 23:00 Intake Total 700 ml Balance 700 ml Intake IV Total 700 ml Laboratory Laboratory Tests Test 09/11/16 09/12/16 19:31 04:12 Stool C. difficile Toxin (PCR) NEGATIVE Stl C. difficile Toxin PRESUMPTIVE Epiderm 027 NEGATIVE White Blood Count 8.8 Red Blood Count 4.47 Hemoglobin 13.8 Hematocrit 39.7 Mean Corpuscular Volume 88.9 Mean Corpuscular Hemoglobin 31.0 Mean Corpuscular Hemoglobin 34.8 Concent Red Cell Distribution Width 14.0 Platelet Count 169 Mean Platelet Volume 8.0 Neutrophils (%) (Auto) 65.5 Lymphocytes (%) (Auto) 20.5 Monocytes (%) (Auto) 10.5 Eosinophils (%) (Auto) 2.8 Basophils (%) (Auto) 0.7 Neutrophils # (Auto) 5.8 Lymphocytes # (Auto) 1.8 Monocytes # (Auto) 0.9 Eosinophils # (Auto) 0.2 Basophils # (Auto) 0.1 CBC Comment DIFF FINAL Differential Comment Prothrombin Time 11.2 Prothromb Time International 1.0 Ratio Sodium Level 137 Potassium Level 3.3 Chloride Level 102 Carbon Dioxide Level 25.5 Anion Gap 10 Blood Urea Nitrogen 10 Creatinine 0.65 Estimat Glomerular Filtration 118 Rate Random Glucose 70 Calcium Level 8.3 Magnesium Level 2.1 Total Bilirubin 1.0 Aspartate Amino Transf 24 (AST/SGOT) Alanine Aminotransferase 31 (ALT/SGPT) Alkaline Phosphatase 73 Total Protein 6.8 Albumin 3.4 Date/Time Procedure Status Source Growth 09/11/16 19:31 Stool Occult Blood (JANIE) - Final Complete Stool Stool HEMOCCULT NEGATIVE 09/11/16 19:31 Cryptosporidium Exam Received Stool Stool Pending 09/11/16 19:31 Giardia Antigen (JANIE) Received Stool Stool Pending 09/11/16 19:31 Received Stool Stool Pending Physical Exam HEENT: Pupils round and reactive to light; normocephalic; atraumatic; no jaundice. Throat is clear. NECK: Neck is supple, no JVD, no lymphadenopathy. CHEST: Chest is clear to auscultation and percussion. CARDIAC: Regular rate and rhythm with no murmur gallop or rubs. ABDOMEN: Soft, nondistended, nontender; no hepatosplenomegaly; bowel sounds are present in all four quadrants. EXTREMITIES: No clubbing, cyanosis, or edema. SKIN: Normal; no rash; no jaundice. ASSISTANT NURSE MANAGER: No focal deficits; alert and oriented times three. Assessment and Plan Plan ASSESSMENT: - Abdominal Pain. Abdomen/Pelvis CT (09/10/16)----> 1. Mild periportal edema the liver which can be associated with hepatitis. Otherwise no acute findings in the remainder of the abdomen and pelvis. Approximately 4.4 cm diverticulum noted off the distal duodenum or proximal jejunum. Moderate coronary calcifications. Lower abdominal cramping x 1 month, worsening yesterday. States he has had lower abdominal cramping x 1 month, worsening yesterday. (+) Diarrhea. Denies N/V/Melena- although this is mentioned in EMR. Denies weight loss. Last colonoscopy 3-4 months ago but cannot recall who did this. - Diarrhea. Denies travel, suspicious food, abx use. Frequent diarrhea with 6- 8 loose yellowish stools per day. Stool studies - Abnormal imaging of liver. Mild periportal edema of the liver. Will get hepatitis profile. LFTs normal. - GERD. PPI - Afib, Hyperlipidemia, BPH per primary 09-12-16 doing ok, had colon EGD today, EGD showed ulcerated area in the lower1/ 3 of the esophagus Bx was done to r/o malignancy, also has gastritis Bx from antrum, colonoscopy showed flat lesion near appendiceal orifice Bx done, possible polyp , colon polyps in the sigmoid removed, random Bx for diarrhea was done PLAN: -await Bx result, if the lesion in the cecum is a polyp a discussion with patient about APC (argon) vs resection, also await Bx from esophagus if it shows malignancy he will need chest CT and EUS and oncology consult - Clear liquids - Hold lovenox till am - Stool studies pending - PPI - Supportive care Bruno Reynolds MD Sep 12, 2016 12:26
[2016-09-12] MEDS: DOXAZOSIN MESYLATE 4 MG TAB PO SCH (14:58)
[2016-09-12] MEDS: DILTIAZEM-CD 180 MG CAP ER PO SCH (14:58)
[2016-09-12] MEDS: DIGOXIN 0.25 MG TAB PO SCH (14:59)
[2016-09-12] MEDS: PRAVASTATIN SOD 20 MG TAB PO SCH (14:59)
[2016-09-12] MEDS: ENOXAPARIN SODIUM 40 MG/0.4 ML SYRINGE SQ SCH (15:00)
[2016-09-12] MEDS: PANTOPRAZOLE SOD 20 MG DELAYED RELEASE TAB PO SCH (15:07)
--- NOTE | 2016-09-12 17:46 | MB ---
cc: DARRYL KING MD DATE OF CONSULTATION 09/12/16 REASON FOR CONSULTATION Distal esophageal mass, colonic polyps HISTORY OF PRESENT ILLNESS This 81-year-old male who is very noncompliant with his care who presents to the emergency room for evaluation of abdominal pain. The patient states he has had cramping and low abdominal pain about a month but it became worse today. The patient states the pain is mainly between the pubis and the belly button, but sometimes rises higher. No nausea, no vomiting and no diarrhea until today. This morning the patient had several bloody bowel movements, hence, the consultation. PAST MEDICAL HISTORY 1. Hypertension, 2. Coronary artery disease, 3. Atrial fibrillation, 4. Hyperlipidemia, 5. Benign prostatic hypertrophy PAST SURGICAL HISTORY Never had surgery SOCIAL HISTORY The patient smokes about two packs a day and drinks about a six-pack admittedly daily. Does not use any drugs. ALLERGIES No known. MEDICATIONS ON THE CHART INCLUDING CARDIZEM DIGOXIN REVIEW OF SYSTEMS The patient at this point is pain free. PHYSICAL EXAMINATION GENERAL: An 81-year-old male in no acute distress. HEENT: Normocephalic. No trauma to the head. Pupils equally reactive. Extraocular muscles intact. NECK: Bilateral carotid pulses and bilateral carotid bruits three through six. 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 HEART: Irregular rhythm. The patient is in a slow atrial fibrillation of about 90. ABDOMEN: Soft, patulous, active bowel sounds. No masses. No rebound or guarding, mildly tender in suprapubic area but nothing to write home about. GROINS: The patient has right-sided direct right inguinal hernia size of a chicken neck about 4 x 2 inches easily reducible. The patient is fairly thin so this is fairly palpable. There is no descent into the testicle. VASCULATURE: The patient has palpable femoral pulses, however, distal pulses are only by Doppler. The patient has dependent rubor and elevation pallor. NEUROLOGIC: Grossly intact. IMPRESSION An 81-year-old male heavy smoker with multiple problems including 1. Right inguinal hernia. As far as inguinal hernia is concerned, the patient is asymptomatic. I would probably advise against surgery. If the patient is symptomatic and this was painful which it is not today, the probably direct inguinal hernia repair on outpatient basis is appropriate. As far as the rest of the patient's problems go, today's colonoscopy revealed several polyps which had been biopsied and then a larger polyp at the ostium of appendix in the cecum. This was then biopsied too and pathology is pending. Upper endoscopy reveals a flat mass in the distal third of the esophagus. This possibly could be an adenocarcinoma or squamous cell carcinoma considering the patient's history and age. History of drinking, smoking and his age. Biopsy has been taken as well. All in all depending on all these biopsies coming back, further therapy will be tailored. Clearly there is limited candidacy for surgery in this gentleman and, depending on pathologies, we will tailor further therapy. I will follow patient with you. Thank you much for referral. Critical care time 40 minutes. Darryl MUÑOZ /5:10 PM /5:34 PM
[2016-09-12] MEDS: TAMSULOSIN HCL 0.4 MG CAP PO SCH (20:43)
[2016-09-13] MEDS: MORPHINE SULFATE 4 MG/ML INJ IV PUSH PRN ×4 (01:53→23:21)
[2016-09-13 03:30] VITALS: BP 138/67; PULSE 79; RESP 16; TEMP 99.3; O2SAT 91
[2016-09-13 04:56] LABS: BICARBONATE 24.7 MEQ/L (21.0-32.0); POTASSIUM 3.5 MEQ/L (3.5-5.1)
[2016-09-13] MEDS: SUCRALFATE 1 GM/10 ML CUP PO SCH ×4 (05:46→20:13)
[2016-09-13 07:37] VITALS: BP 134/70; PULSE 75; RESP 18; O2SAT 95
[2016-09-13] MEDS ORDERED: DEXTROSE 50% IN WATER 50 ML VIAL(D50) IV PUSH PRN (07:45)
[2016-09-13] MEDS ORDERED: GLUCAGON 1 MG/ML VIAL OTHER PRN ×2 (07:45→08:15)
[2016-09-13] MEDS: DILTIAZEM-CD 180 MG CAP ER PO SCH (09:00)
[2016-09-13] MEDS: ENOXAPARIN SODIUM 40 MG/0.4 ML SYRINGE SQ SCH (09:07)
[2016-09-13] MEDS: DIGOXIN 0.25 MG TAB PO SCH (09:07)
[2016-09-13] MEDS: SODIUM CHLORIDE 0.9% FLUSH 5 ML FLUSH FLUSH SCH ×2 (09:07→20:13)
[2016-09-13] MEDS: DOXAZOSIN MESYLATE 4 MG TAB PO SCH (09:08)
[2016-09-13] MEDS: PANTOPRAZOLE SOD 20 MG DELAYED RELEASE TAB PO SCH (09:08)
[2016-09-13] MEDS: traZODone HCL 50 MG TAB PO SCH ×3 (09:08→16:46)
[2016-09-13] MEDS: PRAVASTATIN SOD 20 MG TAB PO SCH (09:08)
--- NOTE | 2016-09-13 10:27 | HHI.GIFU ---
Subjective Remarks Pt resting in bed. Reports being incontinent of stool, had 3 loose yellowish bowel movements this morning. Not currently having abdominal pain. Objective Vitals I&O Vital Signs Date Time Temp Pulse Resp B/P Pulse Ox O2 Delivery O2 Flow Rate FiO2 09/13/16 07:37 75 18 134/70 95 09/13/16 03:30 99.3 79 16 138/67 91 09/13/16 02:00 12 09/12/16 23:27 100.6 97 18 142/77 92 09/12/16 19:51 96.1 84 16 148/79 96 09/12/16 15:16 74 18 180/77 96 09/12/16 12:25 97.8 79 18 166/63 95 09/12/16 11:48 81 16 104/49 93 09/12/16 11:43 77 16 89/43 96 09/12/16 11:38 98.0 81 16 104/49 99 09/12/16 10:17 98.4 75 19 143/86 96 I/O 09/12/16 09/12/16 09/12/16 09/13/16 09/13/16 09/13/16 07:00 15:00 23:00 07:00 15:00 23:00 Intake Total 700 ml 640 ml 260 ml Output Total 400 ml 350 ml Balance 700 ml 240 ml -90 ml Intake Oral 640 ml 260 ml IV Total 700 ml Output Urine Total 400 ml 350 ml Stool Total 0 ml # Voids 3 1 # Bowel Movements 1 2 1 Laboratory Laboratory Tests Test 09/13/16 03:49 Sodium Level 137 Potassium Level 3.5 Chloride Level 103 Carbon Dioxide Level 24.7 Anion Gap 9 Blood Urea Nitrogen 14 Creatinine 0.64 Estimat Glomerular Filtration 120 Rate Random Glucose 60 Calcium Level 8.4 Date/Time Procedure Status Source Growth 09/11/16 19:31 Stool Occult Blood (JANIE) - Final Complete Stool Stool HEMOCCULT NEGATIVE 09/11/16 19:31 Cryptosporidium Exam Received Stool Stool Pending 09/11/16 19:31 Giardia Antigen (JANIE) Received Stool Stool Pending 09/11/16 19:31 - Final Complete Stool Stool NO ENTERIC PATHOGENS DETECTED BY PCR... Imaging Last Impressions Renal Ultrasound 09/11/16 0000 Signed Impressions: Service Date/Time: Sunday, September 11, 2016 08:40 - CONCLUSION: Mild prostate enlargement. Small 1.5 cm cyst lower pole right kidney and probable 7 mm nonobstructing calyceal stone midpole right kidney. Otherwise negative. Fermin Fernández MD Abdomen/Pelvis CT 09/10/16 1711 Signed Impressions: Service Date/Time: Saturday, September 10, 2016 18:41 - CONCLUSION: 1. Mild periportal edema the liver which can be associated with hepatitis. Otherwise no acute findings in the remainder of the abdomen and pelvis. Approximately 4.4 cm diverticulum noted off the distal duodenum or proximal jejunum. Moderate coronary calcifications. Omi Herndon MD Physical Exam HEENT: normocephalic; atraumatic; no jaundice. CHEST: CTA CARDIAC: RRR ABDOMEN: Soft, nondistended, nontender; no hepatosplenomegaly; bowel sounds are present in all four quadrants. EXTREMITIES: No clubbing, cyanosis, or edema. SKIN: Normal; no rash; no jaundice. ROTOR WINDER: No focal deficits; alert and oriented times three. Assessment and Plan Plan ASSESSMENT: - Abdominal Pain. Abdomen/Pelvis CT (09/10/16)----> 1. Mild periportal edema the liver which can be associated with hepatitis. Otherwise no acute findings in the remainder of the abdomen and pelvis. Approximately 4.4 cm diverticulum noted off the distal duodenum or proximal jejunum. Moderate coronary calcifications. s/p EGD colonoscopy, found large lesion in esophagus that was biopsied, and lesion at appendiceal orifice which was biopsied, also found polyps and mild diverticulosis. - Diarrhea. Denies travel, suspicious food, abx use. Frequent diarrhea with 6- 8 loose yellowish stools per day. Stool studies for cryptosporidium and giardia pending, neg for enteric pathogens and occult blood. - Abnormal imaging of liver. Mild periportal edema of the liver. neg hepatitis profile. LFTs normal. - GERD. PPI - Afib, Hyperlipidemia, BPH per primary 09-12-16 doing ok, had colon EGD today, EGD showed ulcerated area in the lower1/ 3 of the esophagus Bx was done to r/o malignancy, also has gastritis Bx from antrum, colonoscopy showed flat lesion near appendiceal orifice Bx done, possible polyp , colon polyps in the sigmoid removed, random Bx for diarrhea was done PLAN: -await Bx result, if the lesion in the cecum is a polyp a discussion with patient about APC (argon) vs resection, also await Bx from esophagus if it shows malignancy he will need chest CT and EUS and oncology consult - probiotics, prn immodium for diarrhea - PPI - Supportive care Lupe Oden Sep 13, 2016 10:27
--- NOTE | 2016-09-13 12:40 | HHI.PR ---
Subjective Remarks Follow up on patient with abdominal pain and diarrhea. S/P EGD and colonoscopy yesterday with intraop biopsies. Patient reports no abdominal pain at present. Does complains of 4 episodes stool incontinence over night and this am. No fever or chills. No chest pain or SOB. Objective Vitals Vital Signs Date Time Temp Pulse Resp B/P Pulse Ox O2 Delivery O2 Flow Rate FiO2 09/13/16 07:37 75 18 134/70 95 09/13/16 03:30 99.3 79 16 138/67 91 09/13/16 02:00 12 09/12/16 23:27 100.6 97 18 142/77 92 09/12/16 19:51 96.1 84 16 148/79 96 09/12/16 15:16 74 18 180/77 96 09/12/16 12:25 97.8 79 18 166/63 95 I/O 09/12/16 09/12/16 09/12/16 09/13/16 09/13/16 09/13/16 07:00 15:00 23:00 07:00 15:00 23:00 Intake Total 700 ml 640 ml 260 ml Output Total 400 ml 350 ml Balance 700 ml 240 ml -90 ml Intake Oral 640 ml 260 ml IV Total 700 ml Output Urine Total 400 ml 350 ml Stool Total 0 ml # Voids 3 1 # Bowel Movements 1 2 1 Result Diagram: 09/12/16 0412 09/13/16 0349 Objective Remarks GENERAL: This is a well-nourished, well-developed patient, in no apparent distress. SKIN: No rashes, ecchymoses or lesions. Cool and dry. HEAD: Atraumatic. Normocephalic. No temporal or scalp tenderness. EYES: No scleral icterus. No injection or drainage. ENT: Nose without bleeding, purulent drainage or septal hematoma. Airway patent. NECK: Trachea midline. No JVD CARDIOVASCULAR: Regular rate and rhythm without murmurs, gallops, or rubs. RESPIRATORY: Clear to auscultation. Breath sounds equal bilaterally. No wheezes , rales, or rhonchi. GASTROINTESTINAL: Abdomen soft, nondistended and nontender. No guarding. MUSCULOSKELETAL: Extremities without clubbing, cyanosis, or edema. No calf tenderness. NEUROLOGICAL: Awake and alert. No focal deficits. Normal speech. Medications and IVs Current Medications Medications (Trade) Dose Ordered Sig/Ortega Route Start Time Stop Time Status Last Admin (NS Flush) 2 ml UNSCH PRN FLUSH 09/10/16 21:30 (NS Flush) 2 ml BID FLUSH 09/11/16 09:00 09/13/16 09:07 (Narcan Inj) 0.4 mg UNSCH PRN IV 09/10/16 21:30 (Morphine Inj) 2 mg Q4HR PRN IV PUSH 09/11/16 00:45 09/13/16 01:53 (Lanoxin) 0.25 mg DAILY PO 09/11/16 09:00 09/13/16 09:07 (Cardizem Cd) 180 mg DAILY PO 09/11/16 09:00 09/13/16 09:00 (Cardura) 4 mg DAILY PO 09/11/16 09:00 09/13/16 09:08 (Pravachol) 20 mg DAILY PO 09/11/16 09:00 09/13/16 09:08 (Protonix) 20 mg DAILY PO 09/11/16 09:00 09/13/16 09:08 (Flomax) 0.4 mg HS PO 09/11/16 21:00 09/12/16 20:43 (Desyrel) 50 mg TID PO 09/11/16 09:00 09/13/16 09:08 (Lovenox Inj) 40 mg Q24H SQ 09/11/16 09:00 09/13/16 09:07 (Carafate Liq) 1 gm ACHS PO 09/11/16 11:00 09/13/16 05:46 (D50w (Vial) Inj) 25 ml UNSCH PRN IV PUSH 09/13/16 07:45 (Glucagon Inj) 1 mg UNSCH PRN OTHER 09/13/16 07:45 (Lactinex) 1 tab TID PO 09/13/16 13:00 (Imodium) 2 mg Q6H PRN PO 09/13/16 10:30 A/P Problem List: (1) Abdominal pain ICD Code: R10.9 Status: Acute (2) Diarrhea ICD Code: R19.7 Status: Acute Assessment and Plan 81 yo male with PMHX of atrial fibrillation, HTN and BPH admitted with abdominal pain/suprapubic pain and diarrhea. Abdominal pain - asymptomatic at present - s/p EGD and colonoscopy yesterday - ulcerated area noted in esophagus that was biopsied as well as lesion at the appendiceal orifice that was biopsied and multiple polyps and diverticulosis. Pathology pending. - IV pain meds prn - CT scan of the abdomen completed and reviewed by myself revealing mild periportal edema of the liver that can be associated with hepatitis and 4.4 cm diverticulum off the distal duodenum or proximal jejunum - Renal/bladder US reviewed by myself revealing (+)mild BPH, small 1.5cm cyst right kidney and a probable 7mm nonobstructing stone calyceal right kidney - GI following - very much appreciate their assistance - Hep panel negative, LFTs normal - c/w heart healthy diet - c/w PPI - c/w Carafate - Probiotics Diarrhea with h/o black stools - multiple episodes of diarrhea overnight, likely from colon prep - Imodium prn per GI - Cdiff negative - stool studies pending for cryptosporidium and giardia, f/u on results - FOBT neg - supportive care Afib - rate controlled - c/w telemetry - c/w home meds HTN - controlled at present - c/w home meds - monitor BP - will adjust treatment as indicated BPH - c/w home Flomax Hypokalemia - resolved - am labs to monitor trend Hypoglycemia - no history of DM, not on any antidiabetic meds - Hypoglycemia protocol - monitor Right inguinal hernia - patient hoping to have repair this admission - Seen by Dr. Wetzel - very much appreciate his assistance - advises against surgical intervention at this time and recommends outpatient follow up if he becomes symptomatic in the future. DVT prophylaxis - SCDs Discussed with Dr. Crowder. . Attending Statement The exam, history, and the medical decision-making described in the above note were completed with the assistance of the mid-level provider. I reviewed and agree with the findings presented. I attest that I had a [id number] encounter with the patient on the same day, and personally performed and documented my assessment and findings in the medical record. Problem Qualifiers (1) Abdominal pain: Qualified Code: R10.30 - Lower abdominal pain (2) Diarrhea: Qualified Code: R19.7 - Diarrhea, unspecified type Jazz Evans PA-C Sep 13, 2016 12:40 Gage Crowder MD Sep 13, 2016 22:55
[2016-09-13] MEDS: LACTOBACILLUS ACIDOPHILUS TAB PO SCH ×2 (12:57→16:46)
--- NOTE | 2016-09-13 15:25 | PD.CAR.PN ---
CVT Progress Note Subjective/Hospital Course: Patient having continuous diarrhea overnight Abdomen is soft with active bowel sounds Biopsy of the esophageal mass and ascending colon polyp pending Once the biopsies are back will get a little better idea which way to go with this gentleman for regardless of diagnosis is a fairly poor candidate for any major surgery Continue to follow Objective: Vital Signs Date Time Temp Pulse Resp B/P Pulse Ox O2 Delivery O2 Flow Rate FiO2 09/13/16 13:00 18 09/13/16 07:37 75 18 134/70 95 09/13/16 03:30 99.3 79 16 138/67 91 09/12/16 23:27 100.6 97 18 142/77 92 09/12/16 19:51 96.1 84 16 148/79 96 Labs: Laboratory Tests Test 09/13/16 03:49 Sodium Level 137 MEQ/L (136-145) Potassium Level 3.5 MEQ/L (3.5-5.1) Chloride Level 103 MEQ/L (98-107) Carbon Dioxide Level 24.7 MEQ/L (21.0-32.0) Anion Gap 9 MEQ/L (5-15) Blood Urea Nitrogen 14 MG/DL (7-18) Creatinine 0.64 MG/DL (0.60-1.30) Estimat Glomerular Filtration 120 ML/MIN Rate (>89) Random Glucose 60 MG/DL (74-106) Calcium Level 8.4 MG/DL (8.5-10.1) Magnesium Level 2.0 MG/DL (1.5-2.5) Result Diagram: 09/12/16 0412 09/13/16 0349 Darryl Wetzel MD Sep 13, 2016 15:25
[2016-09-13 19:51] VITALS: BP 126/62; PULSE 57; RESP 20; TEMP 97.6; O2SAT 95
[2016-09-13] MEDS: TAMSULOSIN HCL 0.4 MG CAP PO SCH (20:13)
[2016-09-13 23:53] VITALS: BP 120/57; PULSE 53; RESP 20; TEMP 98; O2SAT 95
[2016-09-14 04:10] VITALS: BP 119/56; PULSE 60; RESP 20; TEMP 97.4; O2SAT 95
[2016-09-14 05:07] LABS: AUTOMATED NEUTROPHIL # 6.5 TH/MM3 (1.8-7.7); BASOPHIL # 0.1 TH/MM3 (0-0.2); EOSINOPHIL # 0.3 TH/MM3 (0-0.4); EOSINOPHIL % 3.1 % (0.0-4.0); HEMATOCRIT 40.5 % (39.0-51.0); HEMO FLAGS DIFF FINAL; LYMPH % 19.7 % (9.0-44.0); MEAN CELL VOLUME 88.7 FL (80.0-100.0); MEAN CORPUSCULAR HEMOGLOBIN 30.7 PG (27.0-34.0); MEAN CORPUSCULAR HGB CONC 34.6 % (32.0-36.0); MONO % 11.3 % (0.0-8.0); NEUT % 64.9 % (16.0-70.0); PLATELET COUNT 183 TH/MM3 (150-450); RED BLOOD COUNT 4.56 MIL/MM3 (4.50-5.90); WHITE BLOOD COUNT 10.1 TH/MM3 (4.0-11.0)
[2016-09-14 05:13] LABS: BICARBONATE 22.1 MEQ/L (21.0-32.0); MAGNESIUM 2.1 MG/DL (1.5-2.5)
[2016-09-14] MEDS: SUCRALFATE 1 GM/10 ML CUP PO SCH ×4 (05:14→20:13)
[2016-09-14 08:00] VITALS: BP 102/57; PULSE 77; RESP 20; TEMP 96.3; O2SAT 95
[2016-09-14] MEDS: MORPHINE SULFATE 4 MG/ML INJ IV PUSH PRN ×3 (08:17→18:03)
[2016-09-14] MEDS: DIGOXIN 0.25 MG TAB PO SCH (08:19)
[2016-09-14] MEDS: PANTOPRAZOLE SOD 20 MG DELAYED RELEASE TAB PO SCH (08:19)
[2016-09-14] MEDS: LACTOBACILLUS ACIDOPHILUS TAB PO SCH ×3 (08:19→17:04)
[2016-09-14] MEDS: DILTIAZEM-CD 180 MG CAP ER PO SCH (08:19)
[2016-09-14] MEDS: DOXAZOSIN MESYLATE 4 MG TAB PO SCH (08:19)
[2016-09-14] MEDS: PRAVASTATIN SOD 20 MG TAB PO SCH (08:19)
[2016-09-14] MEDS: traZODone HCL 50 MG TAB PO SCH ×3 (08:19→17:04)
[2016-09-14] MEDS: ENOXAPARIN SODIUM 40 MG/0.4 ML SYRINGE SQ SCH (08:20)
[2016-09-14] MEDS: SODIUM CHLORIDE 0.9% FLUSH 5 ML FLUSH FLUSH SCH ×2 (08:20→21:00)
[2016-09-14 09:46] VITALS: PULSE 60
--- NOTE | 2016-09-14 09:55 | HHI.PR ---
Subjective Remarks Follow up on patient with abdominal pain and diarrhea. S/p EGD and colonoscopy yesterday with intraop biopsies. Patient reports persistent intermittent abdominal pain. Still requiring Morphine for pain control. Patient reports poor appetite. Denies any difficulty swallowing liquids or solids just not hungry. Does admit to problems swallowing pills. Patient denies any diarrhea overnight. No chest pain or SOB. Objective Vitals Vital Signs Date Time Temp Pulse Resp B/P Pulse Ox O2 Delivery O2 Flow Rate FiO2 09/14/16 08:22 18 09/14/16 08:00 96.3 77 20 102/57 95 09/14/16 04:10 97.4 60 20 119/56 95 09/13/16 23:53 98.0 53 20 120/57 95 09/13/16 19:51 97.6 57 20 126/62 95 I/O 09/13/16 09/13/16 09/13/16 09/14/16 09/14/16 09/14/16 07:00 15:00 23:00 07:00 15:00 23:00 Intake Total 260 ml 250 ml Output Total 350 ml 2 ml Balance -90 ml 248 ml Intake Oral 260 ml 250 ml Output Urine Total 350 ml 2 ml # Voids 1 2 # Bowel Movements 2 1 Result Diagram: 09/14/1640409/14/16404 Objective Remarks GENERAL: This is a well-nourished, well-developed patient, in no apparent distress. SKIN: No rashes, ecchymoses or lesions. Cool and dry. HEAD: Atraumatic. Normocephalic. No temporal or scalp tenderness. EYES: No scleral icterus. No injection or drainage. ENT: Nose without bleeding, purulent drainage or septal hematoma. Airway patent. NECK: Trachea midline. No JVD CARDIOVASCULAR: Regular rate and rhythm without murmurs, gallops, or rubs. RESPIRATORY: Clear to auscultation. Breath sounds equal bilaterally. No wheezes , rales, or rhonchi. GASTROINTESTINAL: Abdomen soft and nondistended. No guarding. (+)tenderness to palpation lower abdomen R>L. MUSCULOSKELETAL: Extremities without clubbing, cyanosis, or edema. No calf tenderness. NEUROLOGICAL: Awake and alert. No focal deficits. Normal speech. Medications and IVs Current Medications Medications (Trade) Dose Ordered Sig/Ortega Route Start Time Stop Time Status Last Admin (NS Flush) 2 ml UNSCH PRN FLUSH 09/10/16 21:30 (NS Flush) 2 ml BID FLUSH 09/11/16 09:00 09/14/16 08:20 (Narcan Inj) 0.4 mg UNSCH PRN IV 09/10/16 21:30 (Morphine Inj) 2 mg Q4HR PRN IV PUSH 09/11/16 00:45 09/14/16 08:17 (Lanoxin) 0.25 mg DAILY PO 09/11/16 09:00 09/14/16 08:19 (Cardizem Cd) 180 mg DAILY PO 09/11/16 09:00 09/14/16 08:19 (Cardura) 4 mg DAILY PO 09/11/16 09:00 09/14/16 08:19 (Pravachol) 20 mg DAILY PO 09/11/16 09:00 09/14/16 08:19 (Protonix) 20 mg DAILY PO 09/11/16 09:00 09/14/16 08:19 (Flomax) 0.4 mg HS PO 09/11/16 21:00 09/13/16 20:13 (Desyrel) 50 mg TID PO 09/11/16 09:00 09/14/16 08:19 (Lovenox Inj) 40 mg Q24H SQ 09/11/16 09:00 09/14/16 08:20 (Carafate Liq) 1 gm ACHS PO 09/11/16 11:00 09/14/16 05:14 (D50w (Vial) Inj) 25 ml UNSCH PRN IV PUSH 09/13/16 07:45 (Glucagon Inj) 1 mg UNSCH PRN OTHER 09/13/16 07:45 (Lactinex) 1 tab TID PO 09/13/16 13:00 09/14/16 08:19 (Imodium) 2 mg Q6H PRN PO 09/13/16 10:30 A/P Problem List: (1) Abdominal pain ICD Code: R10.9 Status: Acute (2) Diarrhea ICD Code: R19.7 Status: Acute Assessment and Plan 81 yo male with PMHX of atrial fibrillation, HTN and BPH admitted with abdominal pain/suprapubic pain and diarrhea. Abdominal pain - persistent, intermittent, still requiring IV Morphine for pain control - discussed with CM possibility patient meets inpatient criteria for admission - s/p EGD and colonoscopy - ulcerated area noted in esophagus that was biopsied as well as lesion at the appendiceal orifice that was biopsied and multiple polyps and diverticulosis. Pathology pending. - continue with IV pain meds prn - CT scan of the abdomen completed and reviewed by myself revealing mild periportal edema of the liver that can be associated with hepatitis and 4.4 cm diverticulum off the distal duodenum or proximal jejunum - Renal/bladder US reviewed by myself revealing (+)mild BPH, small 1.5cm cyst right kidney and a probable 7mm nonobstructing stone calyceal right kidney - GI following - very much appreciate their assistance - Hep panel negative, LFTs normal - c/w heart healthy diet - c/w PPI - c/w Carafate - Probiotics Diarrhea with h/o black stools - multiple episodes of diarrhea yesterday, likely from colon prep, appears to have resolved, no diarrhea overnight - Imodium prn per GI - Cdiff negative - stool studies negative for cryptosporidium and giardia - FOBT neg - supportive care Poor appetite - add Ensure shakes for supplementation - Brake Shoe Rebuilder consult requested Hyponatremia - mild - likely due to poor po intake - gentle IVF x 1 bag - repeat labs in am Afib - rate controlled - c/w telemetry - c/w home meds HTN - controlled at present - c/w home meds - monitor BP - will adjust treatment as indicated BPH - c/w home Flomax Hypokalemia - resolved - am labs to monitor trend Hypoglycemia - no history of DM, not on any antidiabetic meds - Hypoglycemia protocol - monitor Right inguinal hernia - patient hoping to have repair this admission - Seen by Dr. Wetzel - very much appreciate his assistance - advises against surgical intervention at this time and recommends outpatient follow up if he becomes symptomatic in the future. DVT prophylaxis - SCDs Discussed with Dr. Crowder. . Attending Statement The exam, history, and the medical decision-making described in the above note were completed with the assistance of the mid-level provider. I reviewed and agree with the findings presented. I attest that I had a [id number] encounter with the patient on the same day, and personally performed and documented my assessment and findings in the medical record. Problem Qualifiers (1) Abdominal pain: Qualified Code: R10.30 - Lower abdominal pain (2) Diarrhea: Qualified Code: R19.7 - Diarrhea, unspecified type Jazz Evans PA-C Sep 14, 2016 09:55 Gage rCowder MD Sep 15, 2016 08:53
[2016-09-14] MEDS ORDERED: SODIUM CHLOR 0.9% 1000 ML INJ 1,000 ML IV SCH (10:00)
--- NOTE | 2016-09-14 11:03 | HHI.GIFU ---
Subjective Remarks Pt resting comfortably in bed. Says his diarrhea has improved and he is not currently having any abdominal pain.No BM yet this morning. Says he has no appetite. (Lupe Oden) Objective Vitals I&O Vital Signs Date Time Temp Pulse Resp B/P Pulse Ox O2 Delivery O2 Flow Rate FiO2 09/14/16 09:46 60 09/14/16 08:22 18 09/14/16 08:00 96.3 77 20 102/57 95 09/14/16 04:10 97.4 60 20 119/56 95 09/13/16 23:53 98.0 53 20 120/57 95 09/13/16 19:51 97.6 57 20 126/62 95 I/O 09/13/16 09/13/16 09/13/16 09/14/16 09/14/16 09/14/16 07:00 15:00 23:00 07:00 15:00 23:00 Intake Total 260 ml 250 ml Output Total 350 ml 2 ml Balance -90 ml 248 ml Intake Oral 260 ml 250 ml Output Urine Total 350 ml 2 ml # Voids 1 2 # Bowel Movements 2 1 Laboratory Laboratory Tests Test 09/14/16 04:05 White Blood Count 10.1 Red Blood Count 4.56 Hemoglobin 14.0 Hematocrit 40.5 Mean Corpuscular Volume 88.7 Mean Corpuscular Hemoglobin 30.7 Mean Corpuscular Hemoglobin 34.6 Concent Red Cell Distribution Width 14.0 Platelet Count 183 Mean Platelet Volume 8.4 Neutrophils (%) (Auto) 64.9 Lymphocytes (%) (Auto) 19.7 Monocytes (%) (Auto) 11.3 Eosinophils (%) (Auto) 3.1 Basophils (%) (Auto) 1.0 Neutrophils # (Auto) 6.5 Lymphocytes # (Auto) 2.0 Monocytes # (Auto) 1.1 Eosinophils # (Auto) 0.3 Basophils # (Auto) 0.1 CBC Comment DIFF FINAL Differential Comment Hematology Comments Sodium Level 135 Potassium Level 4.0 Chloride Level 104 Carbon Dioxide Level 22.1 Anion Gap 9 Blood Urea Nitrogen 17 Creatinine 0.77 Estimat Glomerular Filtration 97 Rate Random Glucose 66 Calcium Level 8.2 Magnesium Level 2.1 Date/Time Procedure Status Source Growth 09/11/16 19:31 Stool Occult Blood (JANIE) - Final Complete Stool Stool HEMOCCULT NEGATIVE 09/11/16 19:31 Cryptosporidium Exam - Final Complete Stool Stool NEGATIVE - NO CRYPTOSPORIDIUM ANTIGEN... 09/11/16 19:31 Giardia Antigen (JANIE) - Final Complete Stool Stool NEGATIVE - NO GIARDIA ANTIGEN DETECTE... 09/11/16 19:31 - Final Complete Stool Stool NO ENTERIC PATHOGENS DETECTED BY PCR... Imaging Last Impressions Renal Ultrasound 09/11/16 0000 Signed Impressions: Service Date/Time: Sunday, September 11, 2016 08:40 - CONCLUSION: Mild prostate enlargement. Small 1.5 cm cyst lower pole right kidney and probable 7 mm nonobstructing calyceal stone midpole right kidney. Otherwise negative. Fermin Fernández MD Abdomen/Pelvis CT 09/10/16 1711 Signed Impressions: Service Date/Time: Saturday, September 10, 2016 18:41 - CONCLUSION: 1. Mild periportal edema the liver which can be associated with hepatitis. Otherwise no acute findings in the remainder of the abdomen and pelvis. Approximately 4.4 cm diverticulum noted off the distal duodenum or proximal jejunum. Moderate coronary calcifications. Omi Herndon MD Physical Exam HEENT: normocephalic; atraumatic; no jaundice. CHEST: CTA CARDIAC: RRR ABDOMEN: Soft, nondistended, nontender; no hepatosplenomegaly; hypoactive bowel sounds are present in all four quadrants. EXTREMITIES: No clubbing, cyanosis, or edema. SKIN: Normal; no rash; no jaundice. BINGO FLOATER: No focal deficits; alert and oriented times three. (Lupe Oden [facility]) Assessment and Plan Plan ASSESSMENT: - Abdominal Pain. Abdomen/Pelvis CT (09/10/16)----> 1. Mild periportal edema the liver which can be associated with hepatitis. Otherwise no acute findings in the remainder of the abdomen and pelvis. Approximately 4.4 cm diverticulum noted off the distal duodenum or proximal jejunum. Moderate coronary calcifications. s/p EGD colonoscopy, found large lesion in esophagus that was biopsied, and lesion at appendiceal orifice which was biopsied, also found polyps and mild diverticulosis. - Diarrhea improving. Lactinex & imodium. Denies travel, suspicious food, abx use. Stool studies for cryptosporidium and giardia neg, neg for enteric pathogens and occult blood. - Abnormal imaging of liver. Mild periportal edema of the liver. neg hepatitis profile. LFTs normal. - GERD. PPI - Afib, Hyperlipidemia, BPH per primary PLAN: - await Bx result, if the lesion in the cecum is a polyp a discussion with patient about APC (argon) vs resection, also await Bx from esophagus if it shows malignancy he will need chest CT and EUS and oncology consult - diet as tolerated - probiotics, prn immodium for diarrhea - PPI - Supportive care (Lupe Oden) Physician Comments patient was seen and examined, agree with above note, plan GES in am (Bruno Reynolds MD) Lupe Oden Sep 14, 2016 11:03 Bruno Reynolds MD Sep 14, 2016 18:56
[2016-09-14 12:00] VITALS: BP 124/59; PULSE 68; RESP 20; TEMP 97.5; O2SAT 94
[2016-09-14] MEDS: LOPERAMIDE HCL 2 MG CAP PO PRN ×2 (13:26→20:14)
[2016-09-14 16:00] VITALS: BP 134/67; PULSE 66; RESP 20; TEMP 97; O2SAT 94
[2016-09-14] MEDS: TAMSULOSIN HCL 0.4 MG CAP PO SCH (20:14)
[2016-09-14 21:15] VITALS: BP 130/60; PULSE 67; RESP 20; TEMP 98.2; O2SAT 95
[2016-09-15] VITALS (10 sets, daily range): BP systolic 115–143; BP diastolic 55–68; PULSE 47–80; RESP 16–20; TEMP 97.3–98.4; O2SAT 93–95
[2016-09-15] MEDS: MORPHINE SULFATE 4 MG/ML INJ IV PUSH PRN ×5 (00:35→21:30)
--- NOTE | 2016-09-15 03:10 | HHI.PR ---
Addendum to Inpatient Note Addendum Reason: Additional Documentation Additional Information Patient with atrial fibrillation and asymptomatic bradycardia down to 30's tonight; will check digoxin level, bmp, and magnesium levels. Heart rate now up to 60; labs are unremarkable. Defer further management to rounding daytime physician. Sofi Jin Sep 15, 2016 03:10
[2016-09-15 04:23] LABS: BICARBONATE 23.9 MEQ/L (21.0-32.0); MAGNESIUM 2.1 MG/DL (1.5-2.5); POTASSIUM 3.7 MEQ/L (3.5-5.1)
[2016-09-15] MEDS: SUCRALFATE 1 GM/10 ML CUP PO SCH ×4 (05:59→21:25)
[2016-09-15] MEDS: DILTIAZEM-CD 180 MG CAP ER PO SCH (07:54)
[2016-09-15] MEDS: PANTOPRAZOLE SOD 20 MG DELAYED RELEASE TAB PO SCH (07:54)
[2016-09-15] MEDS: traZODone HCL 50 MG TAB PO SCH ×3 (07:54→17:12)
[2016-09-15] MEDS: DIGOXIN 0.25 MG TAB PO SCH (07:55)
[2016-09-15] MEDS: DOXAZOSIN MESYLATE 4 MG TAB PO SCH (07:55)
[2016-09-15] MEDS: SODIUM CHLORIDE 0.9% FLUSH 5 ML FLUSH FLUSH SCH ×2 (07:56→21:00)
[2016-09-15] MEDS: PRAVASTATIN SOD 20 MG TAB PO SCH (07:56)
[2016-09-15] MEDS: LACTOBACILLUS ACIDOPHILUS TAB PO SCH ×3 (07:56→17:12)
[2016-09-15] MEDS: ENOXAPARIN SODIUM 40 MG/0.4 ML SYRINGE SQ SCH (07:56)
--- NOTE | 2016-09-15 14:38 | HHI.GIFU ---
Subjective Remarks Resting in bed. Diarrhea improving. Had one loose stool last night and several small scant amounts of liquid stool today. Decreased appetite. No pain. Objective Vitals I&O Vital Signs Date Time Temp Pulse Resp B/P Pulse Ox O2 Delivery O2 Flow Rate FiO2 09/15/16 12:00 98.4 80 20 131/68 94 09/15/16 08:14 51 09/15/16 08:00 98.2 61 20 122/64 94 09/15/16 04:00 97.3 60 16 143/61 95 09/15/16 02:42 47 09/15/16 01:56 47 09/15/16 01:40 97.3 60 16 143/61 95 09/15/16 00:29 98.2 59 19 130/64 93 09/14/16 21:15 98.2 67 20 130/60 95 09/14/16 18:13 18 09/14/16 16:00 97.0 66 20 134/67 94 I/O 09/14/16 09/14/16 09/14/16 09/15/16 09/15/16 09/15/16 07:00 15:00 23:00 07:00 15:00 23:00 Intake Total 250 ml 1050 ml 242 ml Output Total 2 ml 3 ml Balance 248 ml 1047 ml 242 ml Intake Oral 250 ml 400 ml 240 ml IV Total 2 ml Other 650 ml Output Urine Total 2 ml 3 ml # Voids 2 1 # Bowel Movements 0 Laboratory Laboratory Tests Test 09/15/16 03:43 Sodium Level 139 Potassium Level 3.7 Chloride Level 107 Carbon Dioxide Level 23.9 Anion Gap 8 Blood Urea Nitrogen 13 Creatinine 0.54 Estimat Glomerular Filtration 146 Rate Random Glucose 83 Calcium Level 8.2 Magnesium Level 2.1 Digoxin Level 1.3 Date/Time Procedure Status Source Growth 09/11/16 19:31 Stool Occult Blood (JANIE) - Final Complete Stool Stool HEMOCCULT NEGATIVE 09/11/16 19:31 Cryptosporidium Exam - Final Complete Stool Stool NEGATIVE - NO CRYPTOSPORIDIUM ANTIGEN... 09/11/16 19:31 Giardia Antigen (JANIE) - Final Complete Stool Stool NEGATIVE - NO GIARDIA ANTIGEN DETECTE... 09/11/16 19:31 - Final Complete Stool Stool NO ENTERIC PATHOGENS DETECTED BY PCR... Imaging Last Impressions Renal Ultrasound 09/11/16 0000 Signed Impressions: Service Date/Time: Sunday, September 11, 2016 08:40 - CONCLUSION: Mild prostate enlargement. Small 1.5 cm cyst lower pole right kidney and probable 7 mm nonobstructing calyceal stone midpole right kidney. Otherwise negative. Fermin Fernández MD Abdomen/Pelvis CT 09/10/16 1711 Signed Impressions: Service Date/Time: Saturday, September 10, 2016 18:41 - CONCLUSION: 1. Mild periportal edema the liver which can be associated with hepatitis. Otherwise no acute findings in the remainder of the abdomen and pelvis. Approximately 4.4 cm diverticulum noted off the distal duodenum or proximal jejunum. Moderate coronary calcifications. Omi Herndon MD Physical Exam HEENT: normocephalic; atraumatic; no jaundice. CHEST: CTA CARDIAC: RRR ABDOMEN: Soft, nondistended, nontender; no hepatosplenomegaly; hypoactive bowel sounds are present in all four quadrants. EXTREMITIES: No clubbing, cyanosis, or edema. SKIN: Normal; no rash; no jaundice. POLYSOMNOGRAPHY TECHNICIAN: No focal deficits; alert and oriented times three. Assessment and Plan Plan ASSESSMENT: - Lymphocytic colitis. Entocort not available at this facility. Will treat with Pepto-Bismol. - Abdominal Pain. Abdomen/Pelvis CT (09/10/16)----> 1. Mild periportal edema the liver which can be associated with hepatitis. Otherwise no acute findings in the remainder of the abdomen and pelvis. Approximately 4.4 cm diverticulum noted off the distal duodenum or proximal jejunum. Moderate coronary calcifications. s/p EGD colonoscopy, found large lesion in esophagus that was biopsied, and lesion at appendiceal orifice which was biopsied, also found polyps and mild diverticulosis. Pathology mild chronic focally active gastritis, severe acute ulcerative esophagitis, sigmoid polyp adenomatous, separate fragments of acutely inflamed squamous mucosa and fibrinopurulent exudate consistent with ulcerations. Features consistent with lymphocytic colitis, features consistent with lymphocytic colitis and focal mucosal hyperplasia, features consistent with lymphocytic colitis. Abdominal pain improved. - Diarrhea improving. Lactinex & imodium. Denies travel, suspicious food, abx use. Stool studies for cryptosporidium and giardia neg, neg for enteric pathogens and occult blood. Pathology from colonoscopy consistent with lymphocytic colitis. - Abnormal imaging of liver. Mild periportal edema of the liver. neg hepatitis profile. LFTs normal. - GERD. PPI - Afib, Hyperlipidemia, BPH per primary PLAN: - CLARE - PPI - Pepto Bismol x 30 days - Will need FU AMISHA 2 weeks - Pt seen and examined by Dr. Reynolds and myself and this note is written on his behalf Lupe Oden Sep 15, 2016 14:38
--- NOTE | 2016-09-15 15:41 | HHI.PR ---
Subjective Remarks Follow up for abdominal pain, diarrhea. The patient reports feeling better today. Denies any abdominal pain. Had 1 episode of diarrhea overnight. Denies nausea/vomiting. Discussed pathology results with the patient. He has no other medical complaints at this time. Objective Vitals Vital Signs Date Time Temp Pulse Resp B/P Pulse Ox O2 Delivery O2 Flow Rate FiO2 09/15/16 12:00 98.4 80 20 131/68 94 09/15/16 08:14 51 09/15/16 08:00 98.2 61 20 122/64 94 09/15/16 04:00 97.3 60 16 143/61 95 09/15/16 02:42 47 09/15/16 01:56 47 09/15/16 01:40 97.3 60 16 143/61 95 09/15/16 00:29 98.2 59 19 130/64 93 09/14/16 21:15 98.2 67 20 130/60 95 09/14/16 18:13 18 09/14/16 16:00 97.0 66 20 134/67 94 I/O 09/14/16 09/14/16 09/14/16 09/15/16 09/15/16 09/15/16 07:00 15:00 23:00 07:00 15:00 23:00 Intake Total 250 ml 1050 ml 242 ml Output Total 2 ml 3 ml Balance 248 ml 1047 ml 242 ml Intake Oral 250 ml 400 ml 240 ml IV Total 2 ml Other 650 ml Output Urine Total 2 ml 3 ml # Voids 2 1 # Bowel Movements 0 Result Diagram: 09/14/16 0405 09/15/16 0343 Imaging Last Impressions Renal Ultrasound 09/11/16 0000 Signed Impressions: Service Date/Time: Sunday, September 11, 2016 08:40 - CONCLUSION: Mild prostate enlargement. Small 1.5 cm cyst lower pole right kidney and probable 7 mm nonobstructing calyceal stone midpole right kidney. Otherwise negative. Fermin Fernández MD Abdomen/Pelvis CT 09/10/16 1711 Signed Impressions: Service Date/Time: Saturday, September 10, 2016 18:41 - CONCLUSION: 1. Mild periportal edema the liver which can be associated with hepatitis. Otherwise no acute findings in the remainder of the abdomen and pelvis. Approximately 4.4 cm diverticulum noted off the distal duodenum or proximal jejunum. Moderate coronary calcifications. Omi Herndon MD Objective Remarks GENERAL: Thin elderly male patient in NAD. SKIN: Warm and dry. No rash. HEENT: Normocephalic. Atraumatic. Pupils equal and round. No scleral icterus. No injection or drainage. Mucous membranes pink and moist. NECK: Supple. Trachea midline. CARDIOVASCULAR: Regular rate and rhythm. S1, S2 noted. No murmur appreciated. RESPIRATORY: No accessory muscle use. Clear to auscultation. Breath sounds equal bilaterally. GASTROINTESTINAL: Scaphoid abdomen, soft, non-tender, nondistended. Normoactive bowel sounds x4. MUSCULOSKELETAL: No obvious deformities. Extremities without clubbing, cyanosis , or edema. NEUROLOGICAL: Awake and alert. No obvious cranial nerve deficits. Motor grossly within normal limits. Normal speech. PSYCHIATRIC: Appropriate mood and affect; insight and judgment normal. Medications and IVs Current Medications Medications (Trade) Dose Ordered Sig/Ortega Route Start Time Stop Time Status Last Admin (NS Flush) 2 ml UNSCH PRN FLUSH 09/10/16 21:30 (NS Flush) 2 ml BID FLUSH 09/11/16 09:00 09/15/16 07:56 (Narcan Inj) 0.4 mg UNSCH PRN IV 09/10/16 21:30 (Morphine Inj) 2 mg Q4HR PRN IV PUSH 09/11/16 00:45 09/15/16 11:38 (Lanoxin) 0.25 mg DAILY PO 09/11/16 09:00 09/15/16 07:55 (Cardizem Cd) 180 mg DAILY PO 09/11/16 09:00 09/15/16 07:54 (Cardura) 4 mg DAILY PO 09/11/16 09:00 09/15/16 07:55 (Pravachol) 20 mg DAILY PO 09/11/16 09:00 09/15/16 07:56 (Protonix) 20 mg DAILY PO 09/11/16 09:00 09/15/16 07:54 (Flomax) 0.4 mg HS PO 09/11/16 21:00 09/14/16 20:14 (Desyrel) 50 mg TID PO 09/11/16 09:00 09/15/16 13:23 (Lovenox Inj) 40 mg Q24H SQ 09/11/16 09:00 09/15/16 07:56 (Carafate Liq) 1 gm ACHS PO 09/11/16 11:00 09/15/16 11:40 (D50w (Vial) Inj) 25 ml UNSCH PRN IV PUSH 09/13/16 07:45 (Glucagon Inj) 1 mg UNSCH PRN OTHER 09/13/16 07:45 (Lactinex) 1 tab TID PO 09/13/16 13:00 09/15/16 13:23 (Imodium) 2 mg Q6H PRN PO 09/13/16 10:30 09/14/16 20:14 (Pepto-Bismol Liq) 30 ml TID PO 09/15/16 18:00 10/15/16 17:59 Urinary Catheter: No Vascular Central Line Catheter: No A/P Problem List: (1) Abdominal pain ICD Code: R10.9 Status: Acute (2) Diarrhea ICD Code: R19.7 Status: Acute Assessment and Plan 81 yo male with PMHX of atrial fibrillation, HTN and BPH admitted with abdominal pain/suprapubic pain and diarrhea. Severe Acute Ulcerative Esophagitis, Lymphocytic Colitis: persistent, still requiring IV Morphine for pain control - CT abdomen 09/10 reviewed by myself revealing mild periportal edema of the liver that can be associated with hepatitis and 4.4 cm diverticulum off the distal duodenum or proximal jejunum - Renal/bladder US 09/11 showed (+)mild BPH, small 1.5cm cyst right kidney and a probable 7mm nonobstructing stone calyceal right kidney - s/p EGD and colonoscopy 09/13 ulcerated area noted in esophagus that was biopsied as well as lesion at the appendiceal orifice that was biopsied and multiple polyps and diverticulosis. - continue with IV pain meds prn - GI following - very much appreciate their assistance - Hep panel negative, LFTs normal - heart healthy diet as tolerated - continue PPI, Carafate, Probiotics - pathology resulted 09/15, showed severe acute ulcerative esophagitis and lymphocytic colitis - GI added Pepto-Bismal tid [id number] - Needs f/up with AMISHA in 2 weeks Diarrhea with h/o black stools: pt with multiple episodes of diarrhea throughout admission, improving. - Imodium prn per GI - Cdiff negative, stool studies negative for cryptosporidium and giardia - FOBT neg - supportive care, much improved Poor appetite - add Ensure shakes for supplementation - Nurse Practitioner Manager consult requested Hyponatremia: mild, likely due to poor po intake - gentle IVF x 1 bag - repeat labs today show improvement, Na 139, resolved. Afib: rate controlled - c/w telemetry - c/w home meds HTN: controlled at present - c/w home meds - monitor BP - will adjust treatment as indicated BPH - c/w home Flomax Hypokalemia- resolved Hypoglycemia: no history of DM, not on any antidiabetic meds, likely secondary to poor oral intake - Hypoglycemia protocol - monitor, improved Right inguinal hernia - patient hoping to have repair this admission - Seen by Dr. Wetzel, advises against surgical intervention at this time and recommends outpatient follow up if he becomes symptomatic in the future. DVT prophylaxis - SCDs Discussed with Dr. Crowder. Discharge Planning Possible discharge tomorrow if patient tolerating oral intake and diarrhea continues to improve. Attending Statement The exam, history, and the medical decision-making described in the above note were completed with the assistance of the mid-level provider. I reviewed and agree with the findings presented. I attest that I had a [id number] encounter with the patient on the same day, and personally performed and documented my assessment and findings in the medical record. Problem Qualifiers (1) Abdominal pain: Qualified Code: R10.30 - Lower abdominal pain (2) Diarrhea: Qualified Code: R19.7 - Diarrhea, unspecified type Lilly Joel PA-C Sep 15, 2016 15:41 Gage Crowder MD Sep 15, 2016 20:09
[2016-09-15] MEDS: BISMUTH SUBSALICYLATE 240 ML BTL PO SCH (17:13)
[2016-09-15] MEDS: TAMSULOSIN HCL 0.4 MG CAP PO SCH (21:26)
[2016-09-16] VITALS (8 sets, daily range): BP systolic 110–137; BP diastolic 56–77; PULSE 47–83; RESP 16–20; TEMP 97.3–98.6; O2SAT 94–97
[2016-09-16] MEDS: MORPHINE SULFATE 4 MG/ML INJ IV PUSH PRN ×3 (02:12→14:22)
[2016-09-16] MEDS: SUCRALFATE 1 GM/10 ML CUP PO SCH ×4 (05:54→20:32)
[2016-09-16] MEDS: DIGOXIN 0.25 MG TAB PO SCH (09:00)
[2016-09-16] MEDS: PANTOPRAZOLE SOD 20 MG DELAYED RELEASE TAB PO SCH (09:41)
[2016-09-16] MEDS: DOXAZOSIN MESYLATE 4 MG TAB PO SCH (09:41)
[2016-09-16] MEDS: PRAVASTATIN SOD 20 MG TAB PO SCH (09:41)
[2016-09-16] MEDS: traZODone HCL 50 MG TAB PO SCH ×3 (09:42→19:37)
[2016-09-16] MEDS: ENOXAPARIN SODIUM 40 MG/0.4 ML SYRINGE SQ SCH (09:43)
[2016-09-16] MEDS: LACTOBACILLUS ACIDOPHILUS TAB PO SCH ×3 (12:09→19:37)
--- NOTE | 2016-09-16 12:51 | HHI.PR ---
Subjective Remarks Follow-up for esophagitis, colitis. Patient reports slowly getting better every day. He still has some diffuse lower abdominal discomfort, requiring IV pain medication. Denies any further episodes of diarrhea overnight or today. Denies fevers or chills. Denies nausea/vomiting. He states he has been drinking his ensure shakes, however he has not been eating the food because he has poor dentition and cannot chew. I suggested going on a full liquid vs soft diet, however patient states "no matter what you do, I'm not going to eat the hospital food". He is still inquiring about getting his hernia fixed. Explained that we will need to treat the colitis prior to considering abdominal surgery that is not emergent at this time. Discussed that we will refer him to Dr. Wetzel's office after discharge. Objective Vitals Vital Signs Date Time Temp Pulse Resp B/P Pulse Ox O2 Delivery O2 Flow Rate FiO2 09/16/16 08:00 98.1 63 18 128/61 94 09/16/16 06:07 47 09/16/16 05:36 54 16 130/58 95 09/16/16 04:00 97.4 52 20 114/77 96 09/16/16 00:00 98.1 55 20 137/62 95 09/15/16 22:53 18 09/15/16 20:00 98.1 55 20 115/55 95 09/15/16 16:00 98.4 47 18 121/58 95 I/O 09/15/16 09/15/16 09/15/16 09/16/16 09/16/16 09/16/16 07:00 15:00 23:00 07:00 15:00 23:00 Intake Total 242 ml 480 ml 240 ml 240 ml Output Total 450 ml Balance 242 ml 30 ml 240 ml 240 ml Intake Oral 240 ml 480 ml 240 ml 240 ml IV Total 2 ml Output Urine Total 450 ml # Voids 1 2 1 # Bowel Movements 0 0 Result Diagram: 09/14/16 0405 09/15/16 0343 Imaging Last Impressions Renal Ultrasound 09/11/16 0000 Signed Impressions: Service Date/Time: Sunday, September 11, 2016 08:40 - CONCLUSION: Mild prostate enlargement. Small 1.5 cm cyst lower pole right kidney and probable 7 mm nonobstructing calyceal stone midpole right kidney. Otherwise negative. Fermin Fernández MD Abdomen/Pelvis CT 09/10/16 1711 Signed Impressions: Service Date/Time: Saturday, September 10, 2016 18:41 - CONCLUSION: 1. Mild periportal edema the liver which can be associated with hepatitis. Otherwise no acute findings in the remainder of the abdomen and pelvis. Approximately 4.4 cm diverticulum noted off the distal duodenum or proximal jejunum. Moderate coronary calcifications. Omi Herndon MD Objective Remarks GENERAL: Thin elderly male patient in NAD. SKIN: Warm and dry. No rash. HEENT: Normocephalic. Atraumatic. Pupils equal and round. No scleral icterus. No injection or drainage. Mucous membranes pink and moist. NECK: Supple. Trachea midline. CARDIOVASCULAR: Regular rate and rhythm. S1, S2 noted. No murmur appreciated. RESPIRATORY: No accessory muscle use. Clear to auscultation. Breath sounds equal bilaterally. GASTROINTESTINAL: Scaphoid abdomen, soft, non-tender, nondistended. Normoactive bowel sounds x4. MUSCULOSKELETAL: No obvious deformities. Extremities without clubbing, cyanosis , or edema. NEUROLOGICAL: Awake and alert. No obvious cranial nerve deficits. Motor grossly within normal limits. Normal speech. PSYCHIATRIC: Appropriate mood and affect; insight and judgment normal. Medications and IVs Current Medications Medications (Trade) Dose Ordered Sig/Ortega Route Start Time Stop Time Status Last Admin (NS Flush) 2 ml UNSCH PRN FLUSH 09/10/16 21:30 (NS Flush) 2 ml BID FLUSH 09/11/16 09:00 09/15/16 21:00 (Narcan Inj) 0.4 mg UNSCH PRN IV 09/10/16 21:30 (Morphine Inj) 2 mg Q4HR PRN IV PUSH 09/11/16 00:45 09/16/16 09:47 (Lanoxin) 0.25 mg DAILY PO 09/11/16 09:00 09/15/16 07:55 (Cardizem Cd) 180 mg DAILY PO 09/11/16 09:00 09/15/16 07:54 (Cardura) 4 mg DAILY PO 09/11/16 09:00 09/16/16 09:41 (Pravachol) 20 mg DAILY PO 09/11/16 09:00 09/16/16 09:41 (Protonix) 20 mg DAILY PO 09/11/16 09:00 09/16/16 09:41 (Flomax) 0.4 mg HS PO 09/11/16 21:00 09/15/16 21:26 (Desyrel) 50 mg TID PO 09/11/16 09:00 09/16/16 09:42 (Lovenox Inj) 40 mg Q24H SQ 09/11/16 09:00 09/16/16 09:43 (Carafate Liq) 1 gm ACHS PO 09/11/16 11:00 09/16/16 05:54 (D50w (Vial) Inj) 25 ml UNSCH PRN IV PUSH 09/13/16 07:45 (Glucagon Inj) 1 mg UNSCH PRN OTHER 09/13/16 07:45 (Lactinex) 1 tab TID PO 09/13/16 13:00 09/16/16 12:09 (Imodium) 2 mg Q6H PRN PO 09/13/16 10:30 09/14/16 20:14 (Pepto-Bismol Liq) 30 ml TID PO 09/15/16 18:00 10/15/16 17:59 09/15/16 17:13 Urinary Catheter: No Vascular Central Line Catheter: No A/P Problem List: (1) Abdominal pain ICD Code: R10.9 Status: Acute (2) Diarrhea ICD Code: R19.7 Status: Acute Assessment and Plan 81 yo male with PMHX of atrial fibrillation, HTN and BPH admitted with abdominal pain/suprapubic pain and diarrhea. Severe Acute Ulcerative Esophagitis, Lymphocytic Colitis: persistent, still requiring IV Morphine for pain control - CT abdomen 09/10 reviewed by myself revealing mild periportal edema of the liver that can be associated with hepatitis and 4.4 cm diverticulum off the distal duodenum or proximal jejunum - Renal/bladder US 09/11 showed (+)mild BPH, small 1.5cm cyst right kidney and a probable 7mm nonobstructing stone calyceal right kidney - s/p EGD and colonoscopy 09/13 ulcerated area noted in esophagus that was biopsied as well as lesion at the appendiceal orifice that was biopsied and multiple polyps and diverticulosis. - continue with IV pain meds prn - GI following - very much appreciate their assistance - Hep panel negative, LFTs normal - heart healthy diet as tolerated - continue PPI, Carafate, Probiotics - pathology resulted 09/15, showed severe acute ulcerative esophagitis and lymphocytic colitis - GI added Pepto-Bismal tid [id number] - Needs f/up with AMISHA in 2 weeks Diarrhea with h/o black stools: pt with multiple episodes of diarrhea throughout admission, improving. - Imodium prn per GI - Cdiff negative, stool studies negative for cryptosporidium and giardia - FOBT neg - supportive care, much improved, no diarrhea yesterday or today Poor appetite - patient explains poor oral intake secondary to poor dentition and missing teeth, also doesn't like the hospital food - add Ensure shakes for supplementation, patient drinks all of his shakes - Chief Minister consulted - place on mechanical soft diet Hyponatremia: mild, likely due to poor po intake - gentle IVF x 1 bag - repeat labs show improvement, Na 139, resolved. Afib: rate controlled, bradycardic overnight into the 40s while patient sleeping, asymptomatic - monitor on telemetry, reviewed personally - continue home digoxin 0.25mg daily, digoxin level wnl - c/w home Cardizem however with persistent bradycardia, will decrease dosing from 180mg to 120mg daily - cardiology was consulted overnight HTN: controlled at present - c/w home meds - monitor BP - will adjust treatment as indicated BPH - c/w home Flomax Hypokalemia- resolved Hypoglycemia: no history of DM, not on any antidiabetic meds, likely secondary to poor oral intake - Hypoglycemia protocol - monitor, improved Right inguinal hernia - patient hoping to have repair this admission - Seen by Dr. Wetzel, advises against surgical intervention at this time and recommends outpatient follow up if he becomes symptomatic in the future. DVT prophylaxis - SCDs Discussed with Dr. Crowder. Discharge Planning Possible discharge today or tomorrow if ok with GI. Attending Statement The exam, history, and the medical decision-making described in the above note were completed with the assistance of the mid-level provider. I reviewed and agree with the findings presented. I attest that I had a [id number] encounter with the patient on the same day, and personally performed and documented my assessment and findings in the medical record. Problem Qualifiers (1) Abdominal pain: Qualified Code: R10.30 - Lower abdominal pain (2) Diarrhea: Qualified Code: R19.7 - Diarrhea, unspecified type Lilly Joel PA-C Sep 16, 2016 12:51 Gage Crowder MD Sep 18, 2016 03:12
[2016-09-16] MEDS: BISMUTH SUBSALICYLATE 240 ML BTL PO SCH ×3 (14:13→19:40)
[2016-09-16] MEDS: SODIUM CHLORIDE 0.9% FLUSH 5 ML FLUSH FLUSH SCH ×2 (14:14→20:33)
--- NOTE | 2016-09-16 14:33 | MB ---
cc: TEREZA NARANJO M.D. DATE OF CONSULTATION: 09/16/2016 REASON FOR CONSULTATION: Bradycardia, atrial fibrillation. HISTORY OF PRESENT ILLNESS: The patient is an 81-year-old white male with a history of chronic atrial fibrillation, hypertension, benign prostatic hypertrophy, hyperlipidemia, gastroesophageal reflux disease who was admitted to the hospital mainly with complaints of abdominal pain. Workup has revealed a distal esophageal mass with pathology apparently revealing severe acute ulcerative esophagitis. The patient states he has had atrial fibrillation for around 15 years and at one point was on warfarin. He denies palpitations, chest pain, shortness of breath, dizziness, syncope, near-syncope, paroxysmal nocturnal dyspnea. For the most part he is sedentary. PAST MEDICAL HISTORY: As above. No other details currently available. CARDIAC MEDICATIONS AT HOME: 1. Cardizem CD 120 milligrams daily. 2. Digoxin 0.25 milligrams daily. 3. Cardura 4 milligrams daily. 4. Pravastatin 20 milligrams daily. 5. Lovenox 40 milligrams subcutaneously q.24 h. ALLERGIES: NO KNOWN DRUG ALLERGIES. FAMILY HISTORY: Noncontributory. SOCIAL HISTORY: The patient is a former smoker. He does smoke cigars now. There is no history of alcohol abuse. REVIEW OF SYSTEMS: Review of systems as in the history of present illness otherwise negative or noncontributory. He also denies headache, abdominal pain, melena, fevers, cough, hemoptysis. PHYSICAL EXAMINATION: GENERAL: On physical examination, his blood pressure 128/61 with a pulse of 63, respirations 18. GENERAL: In general he is a well-developed thin white male in no acute distress HEAD, EYES, EARS, NOSE, THROAT: On HEENT examination jugular venous pressure is normal. Carotid pulses are 2+ bilaterally and without bruits. CHEST: Examination of the chest reveals diminished breath sounds diffusely. CARDIAC: On cardiac examination he has an irregularly irregular rhythm without S3 or murmur. ABDOMEN: On abdominal examination he has a soft, nontender abdomen. Bowel sounds are present. There is no definite hepatosplenomegaly. EXTREMITIES: Examination of extremities reveals no clubbing, cyanosis or edema. LABORATORY DATA: Laboratory data includes WBC 10.1, hemoglobin 14.0, platelets 183,000. Potassium 3.7, BUN 13, creatinine 0.54. INR 1.0. EKGS: EKG from 08/1916 shows possible sinus rhythm with marked first-degree AV block, left axis deviation. There is baseline artifact and the rhythm may be atrial fibrillation with prominent U waves. IMPRESSION: Intermittent bradycardia in this 81-year-old white male with a history of chronic atrial fibrillation, hypertension, hyperlipidemia, gastroesophageal reflux disease, admitted initially with abdominal pain, apparently due to severe ulcerative distal esophagitis. The patient is asymptomatic with the bradycardia. He does have occasional drops in his heart rates into the 30s which are transient. The patient denies any dizziness, syncope or near-syncope. He is on the AV eduardo suppressing drugs, digoxin and Cardizem. With respect to thromboembolic risk, it is moderately elevated. At this time the patient adamantly refuses anticoagulation or antiplatelet therapy and understands the risk of stroke. RECOMMENDATIONS: 1. Would completely stop his Cardizem and digoxin. 2. If he needs additional antihypertensive drug therapy, recommend medications which will not suppress his AV node. 3. Will follow up as needed. MD JOSE LUIS Hathaway/GRISELDA /2:12 PM /2:25 PM [email or web address]
[2016-09-16] MEDS: TAMSULOSIN HCL 0.4 MG CAP PO SCH (20:32)
[2016-09-17] VITALS: BP 120/56; PULSE 68; RESP 18; TEMP 98.2; O2SAT 94
[2016-09-17 04:00] VITALS: BP 119/55; PULSE 57; RESP 17; TEMP 98.4; O2SAT 93
[2016-09-17] MEDS: SUCRALFATE 1 GM/10 ML CUP PO SCH ×3 (05:41→16:00)
[2016-09-17 07:58] VITALS: PULSE 62
[2016-09-17 08:00] VITALS: BP 155/72; PULSE 66; RESP 24; TEMP 98; O2SAT 96
[2016-09-17] MEDS: DOXAZOSIN MESYLATE 4 MG TAB PO SCH (08:16)
[2016-09-17] MEDS: traZODone HCL 50 MG TAB PO SCH ×2 (08:16→11:48)
[2016-09-17] MEDS: PANTOPRAZOLE SOD 20 MG DELAYED RELEASE TAB PO SCH (08:16)
[2016-09-17] MEDS: SODIUM CHLORIDE 0.9% FLUSH 5 ML FLUSH FLUSH SCH (08:17)
[2016-09-17] MEDS: LACTOBACILLUS ACIDOPHILUS TAB PO SCH ×2 (08:17→11:47)
[2016-09-17] MEDS: BISMUTH SUBSALICYLATE 240 ML BTL PO SCH ×2 (08:18→11:48)
[2016-09-17] MEDS: PRAVASTATIN SOD 20 MG TAB PO SCH (08:18)
[2016-09-17] MEDS: ENOXAPARIN SODIUM 40 MG/0.4 ML SYRINGE SQ SCH (08:19)
[2016-09-17] MEDS ORDERED: amLODIPine BESYLATE 5 MG TAB PO SCH (09:00)
[2016-09-17] MEDS ORDERED: DILTIAZEM-CD 120 MG CAP ER PO SCH (09:00)
[2016-09-17] MEDS ORDERED: AMLO5 PO (14:33)
[2016-09-17] MEDS ORDERED: SUCR1S PO (14:33)
[2016-09-17] MEDS ORDERED: NORC5TAB PO (14:33)
[2016-09-17] MEDS ORDERED: BISMS PO (14:33)
--- NOTE | 2016-09-17 14:54 | HHI.DCPOC ---
Discharge Care Plan Diagnosis: (1) Acute esophagitis (2) Lymphocytic colitis (3) Abdominal pain (4) Diarrhea (5) Inguinal hernia Goals to Promote Your Health * To prevent worsening of your condition and complications * To maintain your health at the optimal level Directions to Meet Your Goals Take your medications as prescribed Follow your dietary instruction Follow activity as directed Keep your appointments as scheduled Take your immunizations and boosters as scheduled If your symptoms worsen call your PCP, if no PCP go to Urgent Care Center or Emergency Room Smoking is Dangerous to Your Health. Avoid second hand smoke Call the 24-hour hour crisis hotline for domestic abuse at Lilly Joel PA-C Sep 17, 2016 2:54 pm
--- NOTE | 2016-09-17 15:03 | HHI.DS ---
cc: Dr. Maikol Blackman Discharge Summary Admission Date Sep 14, 2016 at 11:12 am Discharge Date: Sep 17, 2016 Admitting Diagnosis ABD PAIN, DIARRHEA (1) Acute esophagitis ICD Code: K20.9 Diagnosis: Principal (2) Lymphocytic colitis ICD Code: K52.832 Diagnosis: Principal (3) Abdominal pain ICD Code: R10.9 Diagnosis: Principal (4) Diarrhea ICD Code: R19.7 Diagnosis: Principal (5) Atrial fibrillation with slow ventricular response ICD Code: I48.91 Diagnosis: Secondary (6) Inguinal hernia ICD Code: K40.90 Diagnosis: Secondary Procedures EGD and colonoscopy 09/13 ulcerated area noted in esophagus that was biopsied as well as lesion at the appendiceal orifice that was biopsied and multiple polyps and diverticulosis. - pathology resulted 09/15, showed severe acute ulcerative esophagitis and lymphocytic colitis Brief History - From Admission History from patient, ER provider communication, and review of medical records. Patient reported that he came to the hospital because he has been having abdominal pain. He stated that this pain has started a few months ago but is getting worse in the past few days. He reports of diarrhea. However states that it was more of soft loose stool a few times a day. He states is not much amount. More like in the tissue paper when he wipes. He denies any associated fever. Denies any nausea or vomiting. When asked but with abdominal pain is, patient mostly points to the suprapubic area. Patient takes aspirin at home on a as needed basis. He also takes ibuprofen twice a day. He stated that he has osteoarthritis for which he was taking these medications. He reports that his abdominal pain is much better every time he drinks milk. Patient states he has had colonoscopy previously and that it was normal. However never had endoscopy. When asked about melena, patient status some of his loose bowel movements at times would be exploratory and would be black in color. Denies being on iron pills at home. Patient denies any burning when he urinates or pain when he urinates. However he states that he has BPH and does get up in the middle of the night about 5 times a night to urinate. He does have hesitancy/urgency/weak stream. CBC/BMP: 09/14/16 0405 09/15/16 0343 Significant Findings Laboratory Tests Test 09/15/16 03:43 Creatinine 0.54 MG/DL (0.60-1.30) Calcium Level 8.2 MG/DL (8.5-10.1) Imaging Last Impressions Renal Ultrasound 09/11/16 0000 Signed Impressions: Service Date/Time: Sunday, September 11, 2016 08:40 - CONCLUSION: Mild prostate enlargement. Small 1.5 cm cyst lower pole right kidney and probable 7 mm nonobstructing calyceal stone midpole right kidney. Otherwise negative. Fermin Fernández MD Abdomen/Pelvis CT 09/10/16 1711 Signed Impressions: Service Date/Time: Saturday, September 10, 2016 18:41 - CONCLUSION: 1. Mild periportal edema the liver which can be associated with hepatitis. Otherwise no acute findings in the remainder of the abdomen and pelvis. Approximately 4.4 cm diverticulum noted off the distal duodenum or proximal jejunum. Moderate coronary calcifications. Omi Herndon MD PE at Discharge GENERAL: Thin elderly male patient in NAD. SKIN: Warm and dry. No rash. HEENT: Normocephalic. Atraumatic. Pupils equal and round. No scleral icterus. No injection or drainage. Mucous membranes pink and moist. NECK: Supple. Trachea midline. CARDIOVASCULAR: Regular rate and rhythm. S1, S2 noted. No murmur appreciated. RESPIRATORY: No accessory muscle use. Clear to auscultation. Breath sounds equal bilaterally. GASTROINTESTINAL: Scaphoid abdomen, soft, non-tender, nondistended. Normoactive bowel sounds x4. MUSCULOSKELETAL: No obvious deformities. Extremities without clubbing, cyanosis , or edema. NEUROLOGICAL: Awake and alert. No obvious cranial nerve deficits. Motor grossly within normal limits. Normal speech. PSYCHIATRIC: Appropriate mood and affect; insight and judgment normal. Pt update on day of discharge Follow up for esophagitis, colitis. The patient states his abdominal pain has pretty much resolved. He is tolerating oral intake, drinking his Ensure shakes. No further episodes of diarrhea. No nausea/vomiting or fevers/chills. He wants to go home. Hospital Course 81 yo male with PMHX of atrial fibrillation, HTN and BPH admitted with abdominal pain/suprapubic pain and diarrhea. Severe Acute Ulcerative Esophagitis, Lymphocytic Colitis: persistent abdominal pain/diarrhea - CT abdomen 09/10 reviewed by myself revealing mild periportal edema of the liver that can be associated with hepatitis and 4.4 cm diverticulum off the distal duodenum or proximal jejunum - Renal/bladder US 09/11 showed (+)mild BPH, small 1.5cm cyst right kidney and a probable 7mm nonobstructing stone calyceal right kidney - s/p EGD and colonoscopy 09/13 ulcerated area noted in esophagus that was biopsied as well as lesion at the appendiceal orifice that was biopsied and multiple polyps and diverticulosis. - continue with IV pain meds prn - GI consulted - Hep panel negative, LFTs normal - heart healthy diet as tolerated - continue PPI, Carafate, Probiotics - pathology resulted 09/15, showed severe acute ulcerative esophagitis and lymphocytic colitis - GI added Pepto-Bismal tid [id number] - Needs f/up with AMISHA in 2 weeks - Patient much improved after adding Pepto-Bismal, increased oral intake and tolerating well Diarrhea with h/o black stools: pt with multiple episodes of diarrhea throughout admission, improving. Likely secondary to colitis. - Imodium prn per GI - Cdiff negative, stool studies negative for cryptosporidium and giardia - FOBT neg - supportive care - diarrhea resolved Poor appetite - patient explains poor oral intake secondary to poor dentition and missing teeth, also doesn't like the hospital food - add Ensure shakes for supplementation, patient drinks all of his shakes - Spool Salvager consulted - placed on mechanical soft diet - appetite much improved after treating esophagitis as above Hyponatremia: mild, likely due to poor po intake - gentle IVF x 1 bag - repeat labs show improvement, Na 139, resolved. Afib: rate controlled, bradycardic overnight into the 40s while patient sleeping, asymptomatic - monitor on telemetry, reviewed personally - continue home digoxin 0.25mg daily, digoxin level wnl - c/w home Cardizem however with persistent bradycardia, will decrease dosing from 180mg to 120mg daily - cardiology was consulted, discontinued Digoxin and Cardizem, HR much improved , consistently in the 60s-70s, cleared for discharge. HTN: controlled at present - c/w home meds - monitor BP - will adjust treatment as indicated - cardiology added Norvasc 5mg daily BPH - c/w home Flomax Hypokalemia- resolved Hypoglycemia: no history of DM, not on any antidiabetic meds, likely secondary to poor oral intake - Hypoglycemia protocol - monitor, improved with increased oral intake Right inguinal hernia - patient hoping to have repair this admission - Seen by Dr. Wetzel, advises against surgical intervention at this time and recommends outpatient follow up if he becomes symptomatic in the future. DVT prophylaxis - SCDs Discussed with Dr. Crowder. Pt Condition on Discharge: Stable Discharge Disposition: Discharge Home Discharge Time: <= 30 minutes Discharge Instructions DIET: Follow Instructions for: Heart Healthy Diet Speech Therapy-Diet Recommends: Mechanical Soft Additional Diet Instructions: Add Ensure or Boost shakes to your meals. Activities you can perform: Regular-No Restrictions Follow up Referrals: Gastroenterology - 1 Week with Bruno Reynolds MD PCP Follow-up - 2-3 Days with Maikol Blackman MD Surgical - 2 Weeks with Darryl Wetzel MD New Medications: Hydrocodone-Acetaminophen ([place]) 5-325 mg Tab 1 TAB PO Q6H PRN PAIN #12 Ref 0 TAB Amlodipine (Norvasc) 5 Mg Tab 5 MG PO DAILY Blood Pressure Management Days 30 TAB Bismuth Subsalicylate Liq (Bismatrol Liq) 262 Mg/15 Ml Susp 30 ML PO TID gastritis Days 30 BOTTLE Sucralfate Liq (Sucralfate Liq) 1 Gm/10 Ml Krystle 1 GM PO ACHS gastritis Days 30 BOTTLE Continued Medications: Doxazosin (Doxazosin) 4 Mg Tab 4 MG PO DAILY #30 Ref 0 TAB Lovastatin (Lovastatin) 20 Mg Tab 20 MG PO DAILY Cholesterol Management #30 Ref 0 TAB Omeprazole (Omeprazole) 20 Mg Tab 20 MG PO DAILY #30 Ref 0 TAB Tamsulosin (Tamsulosin) 0.4 Mg Cap 0.4 MG PO HS Manage Prostate Problems #30 Ref 0 CAP Trazodone (Trazodone) 50 Mg Tab 50 MG PO TID Control Depression #90 Ref 0 TAB Discontinued Medications: Digoxin (Digoxin) 0.25 Mg Tab 0.25 MG PO DAILY Regulate Heart Beat #30 Ref 0 TAB Diltiazem (Cardizem) 60 Mg Tab 180 MG PO DAILY Angina #180 Ref 0 TAB Additional Information The exam, history, and the medical decision-making described in the above note were completed with the assistance of the mid-level provider. I reviewed and agree with the findings presented. I attest that I had a [id number] encounter with the patient on the same day, and personally performed and documented my assessment and findings in the medical record. MARKELL pt importance of followup with PCP. advise that he may need to discuss restarting one of his rate control meds, which were stopped here due to bradycardia. Lilly Joel PA-C Sep 17, 2016 15:03 Gage Crowder MD Sep 18, 2016 02:32
== END 2016-09-17 18:19 | disposition home or self-care (01) | DRG 392 ==
LOC: NEPE 16:53 → NEDA 20:28 → NEPFCDU 23:38 → OBSVTOIN 09-14 11:12 → N04B 09-15 01:40
PROVIDERS: ADMIT Internal Medicine; ATTEND Internal Medicine
PROC: 0DBN8ZX Excision of Sigmoid Colon, Via Natural or Artificial Opening Endoscopic, Diagnostic (ICD-10-PCS; 2016-09-12)
PROC: 0DBN8ZX Excision of Sigmoid Colon, Via Natural or Artificial Opening Endoscopic, Diagnostic (ICD-10-PCS; 2016-09-12)
PROC: 0DBK8ZX Excision of Ascending Colon, Via Natural or Artificial Opening Endoscopic, Diagnostic (ICD-10-PCS; 2016-09-12)
PROC: 0DBN8ZX Excision of Sigmoid Colon, Via Natural or Artificial Opening Endoscopic, Diagnostic (ICD-10-PCS; 2016-09-12)
PROC: 0DB38ZX Excision of Lower Esophagus, Via Natural or Artificial Opening Endoscopic, Diagnostic (ICD-10-PCS; principal; 2016-09-12 10:35)
PROC: 0DB68ZX Excision of Stomach, Via Natural or Artificial Opening Endoscopic, Diagnostic (ICD-10-PCS; 2016-09-12 10:35)
DX: K52.832 Lymphocytic colitis (principal); K20.8 Other esophagitis; J44.9 Chronic obstructive pulmonary disease, unspecified; I48.2 Chronic atrial fibrillation; R00.1 Bradycardia, unspecified; E87.1 Hypo-osmolality and hyponatremia; K22.10 Ulcer of esophagus without bleeding; K75.9 Inflammatory liver disease, unspecified; R10.30 Lower abdominal pain, unspecified; K29.70 Gastritis, unspecified, without bleeding; D12.5 Benign neoplasm of sigmoid colon; K21.9 Gastro-esophageal reflux disease without esophagitis; I10 Essential (primary) hypertension; E78.5 Hyperlipidemia, unspecified; F17.290 Nicotine dependence, other tobacco product, uncomplicated; G47.00 Insomnia, unspecified; E78.00 Pure hypercholesterolemia, unspecified; M19.90 Unspecified osteoarthritis, unspecified site; R39.12 Poor urinary stream; N40.1 Benign prostatic hyperplasia with lower urinary tract symptoms; R39.15 Urgency of urination; Z96.612 Presence of left artificial shoulder joint; I25.10 Atherosclerotic heart disease of native coronary artery without angina pectoris; K40.90 Unilateral inguinal hernia, without obstruction or gangrene, not specified as recurrent; Z91.19 Patient's noncompliance with other medical treatment and regimen; I44.0 Atrioventricular block, first degree; K57.10 Diverticulosis of small intestine without perforation or abscess without bleeding; N28.1 Cyst of kidney, acquired; N20.0 Calculus of kidney; E87.6 Hypokalemia; E16.2 Hypoglycemia, unspecified; K57.30 Diverticulosis of large intestine without perforation or abscess without bleeding
CPT/HCPCS: 74177; 76775; 80048; 80053; 80074; 80162; 81001; 82272; 83605; 83690; 83735; 85014; 85018; 85025; 85610; 87328; 87329; 87493; 87506; 88305; 88312; 93005; G0378; G8987-GP; G8988-GP; J1650; J2270; J7030; Q9967

== ENCOUNTER 2017-01-10 19:20 | Emergency (ER) | payer MEDICARE, OTHER ==
[~2017-01-10] VITALS: Ht 188 cm; Wt 70.0 kg
[~2017-01-10 19:20] MED LIST changes: +AMLO5 PO; +BISMS PO; -CIME300T PO; +DOXA1TAB34 PO; +LOVA20TA PO; -MEDR4PAK3 PO; +NORC5TAB PO; +OMEP20TA PO; -POLY119S PO; +SUCR1S PO; +TAMS0.4C4 PO; +TRAZ50TA12 PO; -Z.0.UNKNOWN
[2017-01-10 19:22] VITALS: BP 173/79; PULSE 76; RESP 20; TEMP 97.6; O2SAT 96
[2017-01-10 20:22] VITALS: BP 168/70; PULSE 72; RESP 18; O2SAT 98
[2017-01-10] MEDS ORDERED: SODIUM CHLOR 0.9% 1000 ML INJ 1,000 ML IV SCH (20:41)
[2017-01-10 20:44] VITALS: O2SAT 99
[2017-01-10] MEDS ORDERED: DICYCLOMINE HCL 20 MG/2 ML VIAL IM ONE (20:45)
[2017-01-10] MEDS ORDERED: MORPHINE SULFATE 4 MG/ML INJ IV PUSH ONE (20:45)
[2017-01-10] MEDS ORDERED: ONDANSETRON HCL 4 MG/2 ML VIAL IVP ONE (20:45)
[2017-01-10] MEDS ORDERED: SODIUM CHLORIDE 0.9% FLUSH 10 ML FLUSH IV FLUSH PRN (20:45)
--- NOTE | 2017-01-10 21:03 | PD ---
HPI Chief Complaint: Abdominal Pain Time Seen by Provider: 20:35 Travel History International Travel<30 days: No Contact w/Intl Traveler<30days: No Traveled to known affect area: No History of Present Illness HPI 82-year-old male presents via EMS for evaluation of abdominal pain. He reports that he has had intermittent lower abdominal pain for several months. Today the pain was significantly worsened which prompted evaluation. He describes it as an aching pain in the lower abdomen which is constant, no aggravating or relieving factors. He endorses loose watery stool, approximate 6-7 episodes daily, for several months as well. He is currently being worked up at the [facility] for evaluation of this pain. He was admitted in August for similar symptoms. He denies fevers or chills, flank pain, dysuria , testicular or scrotal pain, nausea or vomiting. No other complaints. PFSH Past Medical History Atrial Fibrillation: Yes Blood Disorders: No Heart Rhythm Problems: Yes (afib) Cancer: Yes (melanoma) Cardiovascular Problems: Yes High Cholesterol: Yes Endocrine: No Gastrointestinal Disorders: Yes (Came in with abdominal pain ) Genitourinary: Yes (BPH with some retention) Insomnia: Yes Musculoskeletal: No Neurologic: No Psychiatric: No Past Surgical History Other Surgery: Yes (right nare removal) Social History Alcohol Use: Yes (4-5 beers daily) Tobacco Use: Yes (pack and half a day ) Substance Use: No Allergies-Medications (Allergen,Severity, Reaction): Coded Allergies: No Known Allergies (Verified , 01/10/17) Reported Meds & Prescriptions Reported Meds & Active Scripts Active [place] (Hydrocodone-Acetaminophen) 5-325 mg Tab 1 Tab PO Q6H PRN Bismatrol Liq (Bismuth Subsalicylate) 262 Mg/15 Ml Susp 30 Ml PO TID 30 Days Sucralfate Liq (Sucralfate) 1 Gm/10 Ml Krystle 1 Gm PO ACHS 30 Days Norvasc (Amlodipine Besylate) 5 Mg Tab 5 Mg PO DAILY 30 Days Reported Doxazosin (Doxazosin Mesylate) 4 Mg Tab 4 Mg PO DAILY Trazodone (Trazodone HCl) 50 Mg Tab 50 Mg PO TID Omeprazole 20 Mg Tab 20 Mg PO DAILY Tamsulosin (Tamsulosin HCl) 0.4 Mg Cap 0.4 Mg PO HS Lovastatin 20 Mg Tab 20 Mg PO DAILY Review of Systems Except as stated in HPI: all other systems reviewed are Neg Physical Exam Narrative GENERAL: Well-developed well-nourished male in no acute distress SKIN: Warm and dry. HEAD: Atraumatic. Normocephalic. EYES: Pupils equal and round. No scleral icterus. No injection or drainage. ENT: No nasal bleeding or discharge. Mucous membranes pink and moist. NECK: Trachea midline. No JVD. CARDIOVASCULAR: Regular rate and rhythm. No murmur appreciated. RESPIRATORY: No accessory muscle use. Clear to auscultation. Breath sounds equal bilaterally. GASTROINTESTINAL: Abdomen soft, mild tenderness to palpation left lower quadrant. No guarding. MUSCULOSKELETAL: No obvious deformities. No edema. NEUROLOGICAL: Awake and alert. No obvious cranial nerve deficits. Motor grossly within normal limits. Normal speech. PSYCHIATRIC: Appropriate mood and affect; insight and judgment normal. Data Data Last Documented VS Vital Signs Date Time Temp Pulse Resp B/P Pulse Ox O2 Delivery O2 Flow Rate FiO2 01/10/17 22:15 16 01/10/17 20:44 99 Room Air 01/10/17 20:22 72 168/70 01/10/17 19:22 97.6 Orders Complete Blood Count With Diff (01/10/17 20:41) Comprehensive Metabolic Panel (01/10/17 20:41) Lipase (01/10/17 20:41) Urinalysis - C+S If Indicated (01/10/17 20:41) Ct Abd/Pel W Iv Contrast(Rout) (01/10/17 20:41) Iv Access Insert/Monitor (01/10/17 20:41) Ecg Monitoring (01/10/17 20:41) Oximetry (01/10/17 20:41) Morphine Inj (Morphine Inj) (01/10/17 20:45) Ondansetron Inj (Zofran Inj) (01/10/17 20:45) Sodium Chlor 0.9% 1000 Ml Inj (Ns 1000 M (01/10/17 20:41) Sodium Chloride 0.9% Flush (Ns Flush) (01/10/17 20:45) Dicyclomine Inj (Bentyl Inj) (01/10/17 20:45) Iohexol 350 Inj (Omnipaque 350 Inj) (6/21/17 22:46) Labs Laboratory Tests Test 01/10/17 01/10/17 20:57 21:24 White Blood Count 10.0 TH/MM3 Red Blood Count 4.22 MIL/MM3 Hemoglobin 12.5 GM/DL Hematocrit 37.2 % Mean Corpuscular Volume 88.1 FL Mean Corpuscular Hemoglobin 29.7 PG Mean Corpuscular Hemoglobin 33.7 % Concent Red Cell Distribution Width 14.1 % Platelet Count 184 TH/MM3 Mean Platelet Volume 8.1 FL Neutrophils (%) (Auto) 69.3 % Lymphocytes (%) (Auto) 15.9 % Monocytes (%) (Auto) 10.9 % Eosinophils (%) (Auto) 3.2 % Basophils (%) (Auto) 0.7 % Neutrophils # (Auto) 6.9 TH/MM3 Lymphocytes # (Auto) 1.6 TH/MM3 Monocytes # (Auto) 1.1 TH/MM3 Eosinophils # (Auto) 0.3 TH/MM3 Basophils # (Auto) 0.1 TH/MM3 CBC Comment DIFF FINAL Differential Comment Sodium Level 134 MEQ/L Potassium Level 4.3 MEQ/L Chloride Level 102 MEQ/L Carbon Dioxide Level 22.6 MEQ/L Anion Gap 9 MEQ/L Blood Urea Nitrogen 22 MG/DL Creatinine 0.66 MG/DL Estimat Glomerular Filtration 115 ML/MIN Rate Random Glucose 84 MG/DL Calcium Level 9.3 MG/DL Total Bilirubin 0.4 MG/DL Aspartate Amino Transf 22 U/L (AST/SGOT) Alanine Aminotransferase 34 U/L (ALT/SGPT) Alkaline Phosphatase 76 U/L Total Protein 8.0 GM/DL Albumin 3.7 GM/DL Lipase 604 U/L Urine Color LIGHT-YELLOW Urine Turbidity CLEAR Urine pH 5.0 Urine Specific [place] 1.010 Urine Protein NEG mg/dL Urine Glucose (UA) NEG mg/dL Urine Ketones NEG mg/dL Urine Occult Blood TRACE Urine Nitrite NEG Urine Bilirubin NEG Urine Urobilinogen LESS THAN 2.0 MG/DL Urine Leukocyte Esterase NEG Urine RBC LESS THAN 1 /hpf Urine WBC 3 /hpf Urine Squamous Epithelial <1 /hpf Cells Urine Bacteria RARE /hpf Urine Mucus FEW /lpf Microscopic Urinalysis Comment CULT NOT INDICATED MDM Medical Decision Making Medical Screen Exam Complete: Yes Emergency Medical Condition: Yes Medical Record Reviewed: Yes Differential Diagnosis Colitis, Crohn's, gastroenteritis, diverticulitis, appendicitis, pancreatitis Narrative Course 82-year-old male with intermittent lower abdominal pain for several months, acutely worse today. On examination he has mild left lower quadrant tenderness to palpation. Is also had some diarrhea daily for several months. Plan is for basic lab work, CT abdomen and pelvis. At the end of my shift the patient was signed out to my attending pending CT imaging results. Merrill Hrenandez Jan 10, 2017 21:03
[2017-01-10 21:12] LABS: AUTOMATED NEUTROPHIL # 6.9 TH/MM3 (1.8-7.7); BASOPHIL # 0.1 TH/MM3 (0-0.2); BASOPHIL % 0.7 % (0.0-2.0); EOSINOPHIL # 0.3 TH/MM3 (0-0.4); EOSINOPHIL % 3.2 % (0.0-4.0); HEMATOCRIT 37.2 % (39.0-51.0); HEMO FLAGS DIFF FINAL; LYMPH % 15.9 % (9.0-44.0); LYMPHOCYTE # 1.6 TH/MM3 (1.0-4.8); MEAN CELL VOLUME 88.1 FL (80.0-100.0); MEAN CORPUSCULAR HEMOGLOBIN 29.7 PG (27.0-34.0); MEAN CORPUSCULAR HGB CONC 33.7 % (32.0-36.0); MONO % 10.9 % (0.0-8.0); NEUT % 69.3 % (16.0-70.0); PLATELET COUNT 184 TH/MM3 (150-450); RED BLOOD COUNT 4.22 MIL/MM3 (4.50-5.90); RED CELL DISTRIBUTION WIDTH 14.1 % (11.6-17.2)
[2017-01-10 21:27] LABS: ANION GAP 9 MEQ/L (5-15); AST (GOT) 22 U/L (15-37); BICARBONATE 22.6 MEQ/L (21.0-32.0); BLOOD UREA NITROGEN 22 MG/DL (7-18); CHLORIDE 102 MEQ/L (98-107); GLOMERULAR FILTRATION RATE 115 ML/MIN (>89); POTASSIUM 4.3 MEQ/L (3.5-5.1); SODIUM (NA) 134 MEQ/L (136-145)
[2017-01-10 21:42] LABS: ALKALINE PHOSPHATASE 76 U/L (45-117); ALT (GPT) 34 U/L (12-78); TOTAL BILIRUBIN ADULT 0.4 MG/DL (0.2-1.0)
[2017-01-10 22:12] LABS: BACTERIA, URINE RARE /hpf; BLOOD, URINE TRACE (NEG); COMMENT (UR) CULT NOT INDICATED; CULTURE IF INDICATED CULT NOT INDICATED; GLUCOSE,URINE NEG (NEG); KETONE, URINE NEG (NEG); MUCUS URINE FEW /lpf (OCC); NITRITE,URINE NEG (NEG); SQUAMOUS EPITHELIAL CELL URINE <1 /hpf (0-5); URINE COLOR LIGHT-YELLOW (YELLW/STRAW)
[2017-01-10] MEDS ORDERED: IOHEXOL 350 MG/ML 10 ML VIAL (for RAD DIAG) IV ONE (22:46)
--- NOTE | 2017-01-10 23:04 | RADRPT ---
EXAM DATE/TIME: 01/10/2017 22:37 [facility] COMPARISON: CT ABDOMEN & PELVIS W CONTRAST, September 10, 2016, 18:41. INDICATIONS : Bilateral lower quadrant pain. IV CONTRAST: 90 cc Omnipaque 350 (iohexol) IV ORAL CONTRAST: No oral contrast ingested. RADIATION DOSE: 7.68 CTDIvol (mGy) MEDICAL HISTORY : A-fib. Melanoma. SURGICAL HISTORY : None. ENCOUNTER: Initial ACUITY: 4 - 6 months PAIN SCALE: 10/10 LOCATION: Bilateral lower quadrant TECHNIQUE: Volumetric scanning of the abdomen and pelvis was performed. Using automated exposure control and ad justment of the mA and/or kV according to patient size, radiation dose was kept as low as reasonably achievable to obtain optimal diagnostic quality images. FINDINGS: LOWER LUNGS: Visualized lung bases are without infiltrate or effusion. Panchamber enlargement of the heart is note d. LIVER: There is nonspecific periportal edema. There is also fluid around the gallbladder. No focal hepatic l esions seen. No lymphadenopathy. SPLEEN: Normal size without lesion. PANCREAS: Within normal limits. KIDNEYS: No acute abnormality seen. Mild patchy cortical thinning/scarring seen of both kidneys ADRENAL GLANDS: Within normal limits. VASCULAR: Atherosclerotic plaque again seen of the abdominal aorta. No aneurysm. BOWEL/MESENTERY: The stomach, small bowel, and colon demonstrate no acute abnormality. There is no free intraperitone al air or fluid. ABDOMINAL WALL: Within normal limits. RETROPERITONEUM: There is no lymphadenopathy. BLADDER: No wall thickening or mass. REPRODUCTIVE: Within normal limits. INGUINAL: Small bilateral fat-containing inguinal hernias are present. There is a small amount of fluid in the right inguinal hernia defect. No bowel herniation. MUSCULOSKELETAL: Within normal limits for patient age. CONCLUSION: 1. Periportal and pericholecystic edema/fluid, nonspecific. Underlying chronic liver disease possible . Acute cholecystitis should also be considered in the differential. I don't see any stones. No focal hepatic lesion. 2. No obstruction or acute inflammatory changes are seen of the gastrointestinal tract. 3. Fat/fluid containing inguinal hernias. 4. Chronic vascular disease. 5. Panchamber enlargement of the heart. Jose Carlos Paez MD on January 10, 2017 at 22:57 Board Certified Radiologist. This report was verified electronically.
[2017-01-10 23:27] VITALS: BP 129/62; PULSE 88; RESP 18; O2SAT 99
[2017-01-10] MEDS ORDERED: DICY10 PO (23:49)
--- NOTE | 2017-01-10 23:49 | PD ---
Physical Exam Date Seen by Provider: Jan 10, 2017 Time Seen by Provider: 23:00 Narrative I, Dr. Richards, have reviewed the advance practice practitioner's documentation and am in agreement, met with the patient face to face, made the diagnosis, and the medical decision making was done by me. *My assessment and Findings: Patient seen and evaluated with PA, please see PA note for further details. He has good GI follow-up and is post to get a MRI of his abdomen pelvis tomorrow. He is here because of lower abdominal pain with no nausea, vomiting, or other issues. On exam, he is fairly nontender, no epigastric or right upper quadrant tenderness at all. Not guarding or rebound. She was given morphine initially on exam and currently on reevaluation at 11: 30 PM, is not in any pain at all. Abdomen is completely benign. Laboratory Tests Test 01/10/17 01/10/17 20:57 21:24 Red Blood Count 4.22 MIL/MM3 (4.50-5.90) Hemoglobin 12.5 GM/DL (13.0-17.0) Hematocrit 37.2 % (39.0-51.0) Monocytes (%) (Auto) 10.9 % (0.0-8.0) Monocytes # (Auto) 1.1 TH/MM3 (0-0.9) Sodium Level 134 MEQ/L (136-145) Blood Urea Nitrogen 22 MG/DL (7-18) Lipase 604 U/L (73-393) Urine Occult Blood TRACE (NEG) Urine Bacteria RARE /hpf (NONE) Urine Mucus FEW /lpf (OCC) Last 24 hours Impressions Abdomen/Pelvis CT 01/10/172040 Signed Impressions: Service Date/Time: Tuesday, January 10, 2017 22:37 - CONCLUSION: 1. Periportal and pericholecystic edema/fluid, nonspecific. Underlying chronic liver disease possible. Acute cholecystitis should also be considered in the differential. I don't see any stones. No focal hepatic lesion. 2. No obstruction or acute inflammatory changes are seen of the gastrointestinal tract. 3. Fat/fluid containing inguinal hernias. 4. Chronic vascular disease. 5. Panchamber enlargement of the heart. Jose Carlos Paez MD CAT scan shows some nonspecific fluid around the gallbladder but patient has no tenderness on palpation of the right upper quadrant or umbilical or epigastric area. At this point, I do not think it is related to current process. He has long standing issues with chronic abdominal pain and colitis and has been following up with GI as an outpatient. Lab work does show some mild lipase elevation with the patient's not having significant tenderness on palpation of the left upper quadrant has no vomiting. He is post to see them again after MRI. At this point, I have discussed findings with patient and have offered to admit him to the hospital for observation for further evaluation. However, the patient states he is feeling comfortable now and would prefer to follow-up with his own physicians. He should return for any worsening in symptoms as necessary. The plan was discussed with him and he states understanding. Data Data Last Documented VS Vital Signs Date Time Temp Pulse Resp B/P Pulse Ox O2 Delivery O2 Flow Rate FiO2 01/10/17 23:27 88 18 129/62 99 Room Air 01/10/17 19:22 97.6 Orders Complete Blood Count With Diff (01/10/17 20:41) Comprehensive Metabolic Panel (01/10/17 20:41) Lipase (01/10/17 20:41) Urinalysis - C+S If Indicated (01/10/17 20:41) Ct Abd/Pel W Iv Contrast(Rout) (01/10/17 20:41) Iv Access Insert/Monitor (01/10/17 20:41) Ecg Monitoring (01/10/17 20:41) Oximetry (01/10/17 20:41) Morphine Inj (Morphine Inj) (01/10/17 20:45) Ondansetron Inj (Zofran Inj) (01/10/17 20:45) Sodium Chlor 0.9% 1000 Ml Inj (Ns 1000 M (01/10/17 20:41) Sodium Chloride 0.9% Flush (Ns Flush) (01/10/17 20:45) Dicyclomine Inj (Bentyl Inj) (01/10/17 20:45) Iohexol 350 Inj (Omnipaque 350 Inj) (01/10/17 22:46) Labs Laboratory Tests Test 01/10/17 01/10/17 20:57 21:24 White Blood Count 10.0 TH/MM3 Red Blood Count 4.22 MIL/MM3 Hemoglobin 12.5 GM/DL Hematocrit 37.2 % Mean Corpuscular Volume 88.1 FL Mean Corpuscular Hemoglobin 29.7 PG Mean Corpuscular Hemoglobin 33.7 % Concent Red Cell Distribution Width 14.1 % Platelet Count 184 TH/MM3 Mean Platelet Volume 8.1 FL Neutrophils (%) (Auto) 69.3 % Lymphocytes (%) (Auto) 15.9 % Monocytes (%) (Auto) 10.9 % Eosinophils (%) (Auto) 3.2 % Basophils (%) (Auto) 0.7 % Neutrophils # (Auto) 6.9 TH/MM3 Lymphocytes # (Auto) 1.6 TH/MM3 Monocytes # (Auto) 1.1 TH/MM3 Eosinophils # (Auto) 0.3 TH/MM3 Basophils # (Auto) 0.1 TH/MM3 CBC Comment DIFF FINAL Differential Comment Sodium Level 134 MEQ/L Potassium Level 4.3 MEQ/L Chloride Level 102 MEQ/L Carbon Dioxide Level 22.6 MEQ/L Anion Gap 9 MEQ/L Blood Urea Nitrogen 22 MG/DL Creatinine 0.66 MG/DL Estimat Glomerular Filtration 115 ML/MIN Rate Random Glucose 84 MG/DL Calcium Level 9.3 MG/DL Total Bilirubin 0.4 MG/DL Aspartate Amino Transf 22 U/L (AST/SGOT) Alanine Aminotransferase 34 U/L (ALT/SGPT) Alkaline Phosphatase 76 U/L Total Protein 8.0 GM/DL Albumin 3.7 GM/DL Lipase 604 U/L Urine Color LIGHT-YELLOW Urine Turbidity CLEAR Urine pH 5.0 Urine Specific [place] 1.010 Urine Protein NEG mg/dL Urine Glucose (UA) NEG mg/dL Urine Ketones NEG mg/dL Urine Occult Blood TRACE Urine Nitrite NEG Urine Bilirubin NEG Urine Urobilinogen LESS THAN 2.0 MG/DL Urine Leukocyte Esterase NEG Urine RBC LESS THAN 1 /hpf Urine WBC 3 /hpf Urine Squamous Epithelial <1 /hpf Cells Urine Bacteria RARE /hpf Urine Mucus FEW /lpf Microscopic Urinalysis Comment CULT NOT INDICATED MDM Medical Record Reviewed: Yes Supervised Visit with MINI: Yes Diagnosis Primary Impression: Abdominal pain Additional Impression: Pancreatitis Med/Other Pt SpecificInfo: Prescription(s) given Scripts Dicyclomine (Bentyl)10 Mg Cap10 Mg PO TID PRN (Bowel Management) #15 CAP Ref 0 Prov:Viri Richards MD 01/10/17 Disposition: 01 DISCHARGE HOME Condition: Stable Viri Richards MD Jan 10, 2017 23:49
[2017-01-12] MEDS ORDERED: METR-1 PO (06:41)
[2017-01-12] MEDS ORDERED: TRAM50TA PO (06:41)
[2017-01-12] MEDS ORDERED: CIPR-9 PO (06:41)
== END 2017-01-11 00:29 | disposition home or self-care (01) ==
LOC: NEPE 19:20
DX: R10.30 Lower abdominal pain, unspecified (principal); R19.7 Diarrhea, unspecified; K85.90 Acute pancreatitis without necrosis or infection, unspecified; K40.90 Unilateral inguinal hernia, without obstruction or gangrene, not specified as recurrent; I51.7 Cardiomegaly; I48.91 Unspecified atrial fibrillation; E78.00 Pure hypercholesterolemia, unspecified; F17.200 Nicotine dependence, unspecified, uncomplicated; Z79.899 Other long term (current) drug therapy
CPT/HCPCS: 74177; 80053; 81001; 83690; 85025; 96361; 96372; 96374; 96375; 99285; J0500; J2270; J2405; J7030; Q9967

== ENCOUNTER 2017-01-12 06:07 | Emergency (ER) | payer OTHER ==
[~2017-01-12] VITALS: Ht 190.5 cm; Wt 68.0 kg
[~2017-01-12 06:07] MED LIST changes: +DICY10 PO
[2017-01-12 06:10] VITALS: BP 136/79; PULSE 80; RESP 18; TEMP 98.2; O2SAT 98
[2017-01-12] MEDS ORDERED: METR-1 PO (06:41)
[2017-01-12] MEDS ORDERED: TRAM50TA PO (06:41)
[2017-01-12] MEDS ORDERED: CIPR-9 PO (06:41)
--- NOTE | 2017-01-12 06:46 | PD ---
HPI Chief Complaint: Abdominal Pain Time Seen by Provider: 06:12 Travel History International Travel<30 days: No Contact w/Intl Traveler<30days: No Traveled to known affect area: No History of Present Illness HPI This patient complains of lower abdominal pain, primarily left lower quadrant. He is been having it every day for 7 months. He follows with GI and says he doesn't know why he has the pain. He was here 36 hours ago and had extensive workup including labs and CT of abdomen and pelvis. He had an outpatient MRI of the abdomen and pelvis yesterday and I have reviewed the results. He had thickening of the sigmoid colon otherwise benign results. Denies fever. He does have chronic diarrhea. He denies having antibiotics recently. Symptoms severity is moderate. No alleviating factors. PFSH Past Medical History Atrial Fibrillation: Yes Blood Disorders: No Heart Rhythm Problems: Yes (afib) Cancer: Yes (melanoma) Cardiovascular Problems: Yes High Cholesterol: Yes Diminished Hearing: No Endocrine: No Gastrointestinal Disorders: Yes (Came in with abdominal pain ) Genitourinary: Yes (BPH with some retention) Insomnia: Yes Musculoskeletal: No Neurologic: No Psychiatric: No Past Surgical History Eye Surgery: Yes Other Surgery: Yes (right nare removal) Social History Alcohol Use: Yes (4-5 beers daily) Tobacco Use: Yes (pack and half a day ) Substance Use: No Allergies-Medications (Allergen,Severity, Reaction): Coded Allergies: No Known Allergies (Verified , 01/12/17) Reported Meds & Prescriptions Reported Meds & Active Scripts Active Flagyl (Metronidazole) 500 Mg Tab 500 Mg PO QID Cipro (Ciprofloxacin HCl) 500 Mg Tab 500 Mg PO BID Tramadol (Tramadol HCl) 50 Mg Tab 50 Mg PO Q6H PRN Bentyl (Dicyclomine HCl) 10 Mg Cap 10 Mg PO TID PRN [place] (Hydrocodone-Acetaminophen) 5-325 mg Tab 1 Tab PO Q6H PRN Bismatrol Liq (Bismuth Subsalicylate) 262 Mg/15 Ml Susp 30 Ml PO TID 30 Days Sucralfate Liq (Sucralfate) 1 Gm/10 Ml Krystle 1 Gm PO ACHS 30 Days Norvasc (Amlodipine Besylate) 5 Mg Tab 5 Mg PO DAILY 30 Days Reported Doxazosin (Doxazosin Mesylate) 4 Mg Tab 4 Mg PO DAILY Trazodone (Trazodone HCl) 50 Mg Tab 50 Mg PO TID Omeprazole 20 Mg Tab 20 Mg PO DAILY Tamsulosin (Tamsulosin HCl) 0.4 Mg Cap 0.4 Mg PO HS Lovastatin 20 Mg Tab 20 Mg PO DAILY Review of Systems General / Constitutional: No: Fever Eyes: No: Visual changes HENT: No: Headaches Cardiovascular: Positive: Edema, No: Chest Pain or Discomfort Respiratory: No: Shortness of Breath Gastrointestinal: Positive: Diarrhea, Abdominal Pain Genitourinary: No: Dysuria Musculoskeletal: Positive: Edema, No: Pain Skin: No Rash Neurologic: No: Weakness Psychiatric: No: Depression Endocrine: No: Polydipsia Hematologic/Lymphatic: No: Easy Bruising Physical Exam Narrative GENERAL: Well-nourished, well-developed patient reporting left lower quadrant pain . SKIN: Focused skin assessment reveals no rash and nodules. Skin is Warm and dry. HEAD: Atraumatic. Normocephalic. EYES: Pupils equal and round. No scleral icterus. No injection or drainage. ENT: No nasal bleeding or discharge. Mucous membranes pink and moist. NECK: Trachea midline. No JVD. CARDIOVASCULAR: Regular rate and rhythm. No murmur appreciated. RESPIRATORY: No accessory muscle use. Clear to auscultation. Breath sounds equal bilaterally. GASTROINTESTINAL: Abdomen soft, non-tender, nondistended. Hepatic and splenic margins not palpable. MUSCULOSKELETAL: No obvious deformities. No clubbing. No cyanosis. Symmetric edema the feet ankles and lower legs NEUROLOGICAL: Awake and alert. No obvious cranial nerve deficits. Motor grossly within normal limits. Normal speech. PSYCHIATRIC: Appropriate mood and affect; insight and judgment normal. Data Data Last Documented VS Vital Signs Date Time Temp Pulse Resp B/P Pulse Ox O2 Delivery O2 Flow Rate FiO2 01/12/17 06:10 98.2 80 18 136/79 98 MDM Medical Decision Making Medical Screen Exam Complete: Yes Emergency Medical Condition: Yes Medical Record Reviewed: Yes Differential Diagnosis Diverticulitis, colitis, chronic pain syndrome Narrative Course I have reviewed the patient's electronic medical record. Reviewed his workup from January 10, 2017 as well as outpatient MRI of the abdomen and pelvis from yesterday Patient has had extensive workup for the last couple of days including imaging with CT and MRI. I don't feel further workup is going to be helpful here. This is a chronic problem over 7 months of time with daily pain and diarrhea and he is been following with GI Encouraged him to call his GI physician today for further recommendations and follow-up I gave him injection of morphine and Zofran and some relief I wrote him prescription for Cipro Flagyl and tramadol Of note his abdomen is soft and benign and nontender Diagnosis Primary Impression: Chronic left lower quadrant pain Additional Impression: Colitis Additional Instructions: The patient was warned about potential sedation for the medications they will receive on prescription. The patient was advised to follow up with their physician and return if they worsen. Med/Other Pt SpecificInfo: Prescription(s) given Scripts Metronidazole (Flagyl)500 Mg [id number] Mg PO QID #28 TAB Ref 0 Prov:Payam Segura MD 01/12/17 Ciprofloxacin (Cipro)500 Mg [id number] Mg PO BID #14 TAB Ref 0 Prov:Payam Segura MD 01/12/17 Tramadol 50 Mg Tab50 Mg PO Q6H PRN (PAIN) #20 TAB Ref 0 Prov:Payam Segura MD 01/12/17 Disposition: 01 DISCHARGE HOME Condition: Stable Payam Segura MD Jan 12, 2017 06:46
[2017-01-12] MEDS ORDERED: MORPHINE SULFATE 4 MG/ML INJ IM ONE (07:00)
[2017-01-12] MEDS ORDERED: ONDANSETRON HCL 4 MG/2 ML VIAL IM ONE (07:00)
== END 2017-01-12 07:41 | disposition home or self-care (01) ==
LOC: NEPC 06:07
DX: R10.32 Left lower quadrant pain (principal); K52.9 Noninfective gastroenteritis and colitis, unspecified; F17.200 Nicotine dependence, unspecified, uncomplicated
CPT/HCPCS: 96372; 99284; J2270; J2405

== ENCOUNTER 2017-06-16 18:12 | Emergency (ER) | payer OTHER ==
[~2017-06-16] VITALS: Ht 190.5 cm; Wt 75.0 kg
[~2017-06-16 18:12] MED LIST changes: +CIPR-9 PO; +METR-1 PO; -OMEP20TA PO; +OMEP20TA93 PO; +TRAM50TA PO
[2017-06-16 18:26] VITALS: BP 155/68; PULSE 67; RESP 14; TEMP 97.5; O2SAT 98
--- NOTE | 2017-06-16 19:27 | PD ---
HPI Chief Complaint: Numbness/Tingling Time Seen by Provider: 18:58 Travel History International Travel<30 days: No Contact w/Intl Traveler<30days: No Traveled to known affect area: No History of Present Illness HPI Patient comes in for evaluation of worsening numbness and tingling in his bilateral feet. Patient's has been going on for over 3 weeks. Patient reports he has appointment with neurologist on Sunday. He states pain got worse today causing him some concern and called EMS. Patient reports symptoms have resolved currently he feels much better and is wanting to leave. Denies any fevers, back pain, falls, headache, weakness, loss or change in bowel or bladder , abdominal pain, chest pain, headaches, or shortness breath. Denies anything making symptoms worse. Symptoms improved with time. PFSH Past Medical History Atrial Fibrillation: Yes Blood Disorders: No Heart Rhythm Problems: Yes (afib) Cancer: Yes (melanoma) Cardiovascular Problems: Yes High Cholesterol: Yes Diminished Hearing: No Endocrine: No Gastrointestinal Disorders: Yes (Came in with abdominal pain ) Genitourinary: Yes (BPH with some retention) Insomnia: Yes Musculoskeletal: No Neurologic: No Psychiatric: No Past Surgical History Eye Surgery: Yes Other Surgery: Yes (right nare removal, pins to left shoulder ) Social History Alcohol Use: Yes (4-5 beers daily) Tobacco Use: Yes (pack and half a day ) Substance Use: No Allergies-Medications (Allergen,Severity, Reaction): Coded Allergies: No Known Allergies (Verified , 01/12/17) Reported Meds & Prescriptions Reported Meds & Active Scripts Active Bentyl (Dicyclomine HCl) 10 Mg Cap 10 Mg PO TID PRN Sucralfate Liq (Sucralfate) 1 Gm/10 Ml Krystle 1 Gm PO ACHS 30 Days Norvasc (Amlodipine Besylate) 5 Mg Tab 5 Mg PO DAILY 30 Days Reported Doxazosin (Doxazosin Mesylate) 4 Mg Tab 4 Mg PO DAILY Trazodone (Trazodone HCl) 50 Mg Tab 50 Mg PO TID Omeprazole 20 Mg Tab 20 Mg PO DAILY Tamsulosin (Tamsulosin HCl) 0.4 Mg Cap 0.4 Mg PO HS Lovastatin 20 Mg Tab 20 Mg PO DAILY Review of Systems Except as stated in HPI: all other systems reviewed are Neg Physical Exam Narrative GENERAL: Well-developed, well nourished, in no acute distress, and non-ill appearing. SKIN: Focused skin assessment warm and dry. HEAD: Atraumatic. Normocephalic. EYES: Pupils equal and round. EOMI. No scleral icterus. No injection or drainage. ENT: No nasal bleeding or discharge. Mucous membranes pink and moist. NECK: Trachea midline. Supple. No nuclear rigidity. RESPIRATORY: No accessory muscle use. No respiratory distress. GASTROINTESTINAL: Abdomen soft, non-tender, nondistended, and no guarding. Hepatic and splenic margins not palpable. No pulsatile mass. MUSCULOSKELETAL: No obvious deformities. No clubbing. No cyanosis. No edema. Full range of motion. Hip: FROM and equal BL with passive flexion, extension, Abduction, Adduction, and internal/external rotation. Pulses equal BL distal to injury. Capillary refill less than 2 seconds distal to injury and equal BL. FROM distal to injury and equal BL. Strength distal to injury equal BL. NV intact distal to injury and equal BL. Plantar flexion and dorsal flexion equal BL. Dorsal pulses equal BL. Sensation equal BL 1st web space. No tenderness or crepitus over spinal column. NEUROLOGICAL: Awake and alert. No obvious cranial nerve deficits. Motor grossly within normal limits. Normal speech. PSYCHIATRIC: Appropriate mood and affect; insight and judgment normal. Data Data Last Documented VS Vital Signs Date Time Temp Pulse Resp B/P (MAP) Pulse Ox O2 Delivery O2 Flow Rate FiO2 06/16/17 19:45 06/16/17 18:26 97.5 67 14 98 Orders Orders Ed Discharge Order (06/16/17 19:27) MDM Medical Decision Making Medical Screen Exam Complete: Yes Emergency Medical Condition: Yes Differential Diagnosis Neuropathy, metabolic disturbance, chronic foot pain Narrative Course Patient in no obvious distress upon re-evaluation. Discussed patient with Dr. Valladares prior discharge, who saw and evaluated the patient is in agreement with plan of care and disposition. Any questions/concerns in reference to patient diagnosis/condition discussed and clarified prior to patient's discharge. Reinforced sheer importance of close follow up with patient's primary physician or primary care clinic. Instructed patient to return to ED immediately, if symptoms return/worsen. Patient showed understanding of above instructions. Further instructions and recommendations were detailed in discharge paperwork. Patient ambulated without difficulty out of ED at discharge. Diagnosis Primary Impression: Numbness and tingling of both feet Patient Instructions: General Instructions Additional Instructions: Follow-up with neurologist on Sunday as scheduled. Return to the emergency department if symptoms get worse. Disposition: 01 DISCHARGE HOME Condition: Stable Aleksey Galeas Jun 16, 2017 19:27
--- NOTE | 2017-06-16 19:36 | PD ---
Data Data Last Documented VS Vital Signs Date Time Temp Pulse Resp B/P (MAP) Pulse Ox O2 Delivery O2 Flow Rate FiO2 06/16/17 18:26 97.5 67 14 155/68 (97) 98 Orders Orders Ed Discharge Order (06/16/17 19:27) [facility] Medical Record Reviewed: Yes Supervised Visit with MINI: Yes Narrative Course I, Dr. Valladares, have reviewed the advance practice practitioner's documentation and am in agreement, met with the patient face to face, made the diagnosis, and the medical decision making was done by me. *My assessment and Findings: Please refer the mid-level note. There is no stroke. There is no seizure. The patient has follow-up with Dr. Anthony in two days. Gen.: 82-year-old male quite talkative and pleasant Neurologic: Speaking sentences. No focal cranial nerve deficit. Moving all extremities normally. Normal gait. Memory mentation normal. Diagnosis Primary Impression: Numbness and tingling of both feet Patient Instructions: General Instructions Additional Instruction: Follow-up with neurologist on Sunday as scheduled. Return to the emergency department if symptoms get worse. Disposition: 01 DISCHARGE HOME Condition: Stable Devin Valladares MD Jun 16, 2017 19:36
== END 2017-06-16 19:45 | disposition home or self-care (01) ==
LOC: NEPD 18:12
DX: R20.0 Anesthesia of skin (principal); I48.91 Unspecified atrial fibrillation; E78.00 Pure hypercholesterolemia, unspecified; N40.0 Benign prostatic hyperplasia without lower urinary tract symptoms; G47.00 Insomnia, unspecified; F17.200 Nicotine dependence, unspecified, uncomplicated; Z85.820 Personal history of malignant melanoma of skin; Z79.899 Other long term (current) drug therapy
CPT/HCPCS: 99283

== ENCOUNTER 2017-06-18 09:59 | Emergency (ER) | payer OTHER ==
[~2017-06-18] VITALS: Ht 188 cm; Wt 75.0 kg
[~2017-06-18 09:59] MED LIST changes: -BISMS PO; -CIPR-9 PO; -METR-1 PO; -NORC5TAB PO; -TRAM50TA PO
[2017-06-18 10:14] VITALS: BP 186/77; PULSE 64; RESP 18; TEMP 97.9; O2SAT 98
--- NOTE | 2017-06-18 10:16 | PD ---
HPI Chief Complaint: Numbness/Tingling Time Seen by Provider: 10:13 Travel History International Travel<30 days: No Contact w/Intl Traveler<30days: No Traveled to known affect area: No History of Present Illness HPI 82-year-old male patient presents to the ER brought in by EMS, complains of ongoing leg tingling and paresthesias, apparently had told EMS that his chest was numb but currently denies any numbness or chest pains. He denies any other symptoms. He apparently had similar complaints when he was seen yesterday. EMS states that he initially had multiple PVCs and they had given him lidocaine in route which improved his PVCs. Modifying Factors: None Associated Signs & Symptoms: Multiple PVCs, paresthesias of the leg Risk Factors: Elderly PFSH Past Medical History Atrial Fibrillation: Yes Blood Disorders: No Heart Rhythm Problems: Yes (afib) Cancer: Yes (melanoma) Cardiovascular Problems: Yes High Cholesterol: Yes Diminished Hearing: No Endocrine: No Gastrointestinal Disorders: Yes (Came in with abdominal pain ) Genitourinary: Yes (BPH with some retention) Insomnia: Yes Musculoskeletal: No Neurologic: No Psychiatric: No Past Surgical History Eye Surgery: Yes Other Surgery: Yes (right nare removal, pins to left shoulder ) Social History Alcohol Use: Yes (4-5 beers daily) Tobacco Use: Yes (pack and half a day ) Substance Use: No Allergies-Medications (Allergen,Severity, Reaction): Coded Allergies: No Known Allergies (Verified , 01/12/17) Reported Meds & Prescriptions Reported Meds & Active Scripts Active Bentyl (Dicyclomine HCl) 10 Mg Cap 10 Mg PO TID PRN Sucralfate Liq (Sucralfate) 1 Gm/10 Ml Krystle 1 Gm PO ACHS 30 Days Norvasc (Amlodipine Besylate) 5 Mg Tab 5 Mg PO DAILY 30 Days Reported Doxazosin (Doxazosin Mesylate) 4 Mg Tab 4 Mg PO DAILY Trazodone (Trazodone HCl) 50 Mg Tab 50 Mg PO TID Omeprazole 20 Mg Tab 20 Mg PO DAILY Tamsulosin (Tamsulosin HCl) 0.4 Mg Cap 0.4 Mg PO HS Lovastatin 20 Mg Tab 20 Mg PO DAILY Review of Systems Except as stated in HPI: all other systems reviewed are Neg Physical Exam Narrative GENERAL: Well-developed elderly white male patient currently none acute distress at awake and oriented 3. SKIN: Focused skin assessment warm/dry. HEAD: Atraumatic. Normocephalic. EYES: Pupils equal and round. No scleral icterus. No injection or drainage. ENT: No nasal bleeding or discharge. Mucous membranes pink and moist. NECK: Trachea midline. No JVD. CARDIOVASCULAR: Irregularly irregular. No murmur appreciated. RESPIRATORY: No accessory muscle use. Clear to auscultation. Breath sounds equal bilaterally. GASTROINTESTINAL: Abdomen soft, non-tender, nondistended. Hepatic and splenic margins not palpable. MUSCULOSKELETAL: No obvious deformities. No clubbing. No cyanosis. No edema. EXTREMITIES: No clubbing, cyanosis, or edema. No joint tenderness, effusion, or edema noted. No calf tenderness. Pulses are present and equal bilaterally in all 4 extremities. NEUROLOGICAL: Awake and alert. No obvious cranial nerve deficits. Motor grossly within normal limits. Normal speech. PSYCHIATRIC: Appropriate mood and affect; insight and judgment normal. Data Data Last Documented VS Vital Signs Date Time Temp Pulse Resp B/P (MAP) Pulse Ox O2 Delivery O2 Flow Rate FiO2 06/18/17 10:17 97.9 68 18 153/68 (96) 98 Room Air Orders Orders Electrocardiogram (06/18/17 10:13) Complete Blood Count With Diff (06/18/17 10:13) Comprehensive Metabolic Panel (06/18/17 10:13) Ckmb (Isoenzyme) Profile (06/18/17 10:13) Troponin I (06/18/17 10:13) Prothrombin Time / Inr (Pt) (06/18/17 10:13) Act Partial Throm Time (Ptt) (06/18/17 10:13) Magnesium (Mg) (06/18/17 10:13) Ed Discharge Order (06/18/17 12:12) Labs Laboratory Tests Test 06/18/17 10:55 White Blood Count 6.4 TH/MM3 Red Blood Count 4.88 MIL/MM3 Hemoglobin 14.1 GM/DL Hematocrit 41.6 % Mean Corpuscular Volume 85.2 FL Mean Corpuscular Hemoglobin 28.9 PG Mean Corpuscular Hemoglobin Concent 33.9 % Red Cell Distribution Width 19.7 % Platelet Count 149 TH/MM3 Mean Platelet Volume 7.7 FL Neutrophils (%) (Auto) 64.5 % Lymphocytes (%) (Auto) 24.0 % Monocytes (%) (Auto) 7.1 % Eosinophils (%) (Auto) 3.0 % Basophils (%) (Auto) 1.4 % Neutrophils # (Auto) 4.1 TH/MM3 Lymphocytes # (Auto) 1.5 TH/MM3 Monocytes # (Auto) 0.5 TH/MM3 Eosinophils # (Auto) 0.2 TH/MM3 Basophils # (Auto) 0.1 TH/MM3 CBC Comment DIFF FINAL Differential Comment Prothrombin Time 11.4 SEC Prothromb Time International Ratio 1.0 RATIO Activated Partial Thromboplast Time 23.1 SEC Blood Urea Nitrogen 14 MG/DL Creatinine 0.85 MG/DL Random Glucose 74 MG/DL Total Protein 7.4 GM/DL Albumin 4.0 GM/DL Calcium Level 8.8 MG/DL Magnesium Level 2.1 MG/DL Alkaline Phosphatase 78 U/L Aspartate Amino Transf (AST/SGOT) 23 U/L Alanine Aminotransferase (ALT/SGPT) 21 U/L Total Bilirubin 0.4 MG/DL Sodium Level 136 MEQ/L Potassium Level 4.1 MEQ/L Chloride Level 104 MEQ/L Carbon Dioxide Level 23.3 MEQ/L Anion Gap 9 MEQ/L Estimat Glomerular Filtration Rate 86 ML/MIN Total Creatine Kinase 87 U/L Troponin I LESS THAN 0.02 NG/ML MDM Medical Decision Making Medical Screen Exam Complete: Yes Emergency Medical Condition: Yes Medical Record Reviewed: Yes Interpretation(s) EKG shows A. fib at a rate of 64 bpm. No signs of acute ST-T changes. Laboratory Tests Test 06/18/17 10:55 Red Cell Distribution Width 19.7 % (11.6-17.2) Platelet Count 149 TH/MM3 (150-450) Activated Partial Thromboplast Time 23.1 SEC (24.3-30.1) Estimat Glomerular Filtration Rate 86 ML/MIN (>89) Troponin I LESS THAN 0.02 NG/ML Differential Diagnosis Bilateral leg tingling: Metabolic issues versus restless leg syndrome versus peripheral neuropathy versus peripheral vascular disease Narrative Course Vital signs are stable in the ER. Patient denies any chest pains or palpitations. He states that he just gets anxious, and he is having the same symptoms for which she was seen the other day. He states that he has had this problem with leg numbness for some time, states it is more of a tingling. He denies any incontinence or any other issues. Feet are warm and well perfused, good pulses, no cyanosis. Lab work was done which did not show any signs of significant metabolic issues. EKG shows A. fib at a rate of 64 bpm. He has occasional PVCs but I do not see any other acute changes. At this point, I have talked to the patient regarding findings and have offered to admit him as an observation versus close outpatient follow-up with neurology and primary care doctor. He states that he was scheduled to see neurology today and had canceled the appointment. He decides that he will follow-up as an outpatient rather than staying at this time. He should return for any worsening in symptoms as needed. The plan has been discussed with him and he states understanding. Diagnosis Primary Impression: Paresthesia of both feet Disposition: 01 DISCHARGE HOME Condition: Stable Viri Richards MD Jun 18, 2017 10:16
[2017-06-18 10:17] VITALS: BP 153/68; PULSE 68; RESP 18; TEMP 97.9; O2SAT 98
[2017-06-18 11:16] LABS: AUTOMATED NEUTROPHIL # 4.1 TH/MM3 (1.8-7.7); BASOPHIL # 0.1 TH/MM3 (0-0.2); BASOPHIL % 1.4 % (0.0-2.0); EOSINOPHIL # 0.2 TH/MM3 (0-0.4); HEMATOCRIT 41.6 % (39.0-51.0); HEMO FLAGS DIFF FINAL; LYMPHOCYTE # 1.5 TH/MM3 (1.0-4.8); MEAN CELL VOLUME 85.2 FL (80.0-100.0); MEAN CORPUSCULAR HEMOGLOBIN 28.9 PG (27.0-34.0); MEAN CORPUSCULAR HGB CONC 33.9 % (32.0-36.0); MONO % 7.1 % (0.0-8.0); NEUT % 64.5 % (16.0-70.0); PLATELET COUNT 149 TH/MM3 (150-450); RED BLOOD COUNT 4.88 MIL/MM3 (4.50-5.90); RED CELL DISTRIBUTION WIDTH 19.7 % (11.6-17.2); WHITE BLOOD COUNT 6.4 TH/MM3 (4.0-11.0)
[2017-06-18 11:18] LABS: APTT (PATIENT) 23.1 SEC (24.3-30.1); PROTHROMBIN TIME - PATIENT 11.4 SEC (9.8-11.6)
[2017-06-18 11:27] LABS: ALT (GPT) 21 U/L (12-78); ANION GAP 9 MEQ/L (5-15); AST (GOT) 23 U/L (15-37); BICARBONATE 23.3 MEQ/L (21.0-32.0); BLOOD UREA NITROGEN 14 MG/DL (7-18); CHLORIDE 104 MEQ/L (98-107); GLOMERULAR FILTRATION RATE 86 ML/MIN (>89); MAGNESIUM 2.1 MG/DL (1.5-2.5); POTASSIUM 4.1 MEQ/L (3.5-5.1); SODIUM (NA) 136 MEQ/L (136-145)
[2017-06-18 11:31] LABS: ALKALINE PHOSPHATASE 78 U/L (45-117); TOTAL BILIRUBIN ADULT 0.4 MG/DL (0.2-1.0)
[2017-06-18 11:40] LABS: CREATINE KINASE 87 U/L (39-308)
--- NOTE | 2017-06-18 12:03 | EKG ---
Date Performed: 06/18/2017 Time Performed: 10:47:30 PTAGE: 82 years EKG: PROBABLE ATRIAL FIBRILLATION LEFT AXIS DEVIATION POSSIBLE ANTERIOR AND INFERIOR MYOCARDIAL INFARCTION ABNORMAL ECG PREVIOUS TRACING : 09/10/2016 17.56 No significant change from previous tracing noted. DOCTOR: Gideon Mclean Interpretating Date/Time 06/18/2017 12:03:19
== END 2017-06-18 12:31 | disposition home or self-care (01) ==
LOC: NEPC 09:59
DX: R20.2 Paresthesia of skin (principal); R94.31 Abnormal electrocardiogram [ECG] [EKG]; I48.91 Unspecified atrial fibrillation; E78.00 Pure hypercholesterolemia, unspecified; N40.0 Benign prostatic hyperplasia without lower urinary tract symptoms; G47.00 Insomnia, unspecified; F17.200 Nicotine dependence, unspecified, uncomplicated; Z79.899 Other long term (current) drug therapy
CPT/HCPCS: 80053; 82550; 83735; 84484; 85025; 85610; 85730; 93005; 99284

== ENCOUNTER 2017-08-24 23:27 | Inpatient (IN) | payer OTHER, MEDICARE ==
[2017-08-24 23:47] VITALS: BP 149/70; PULSE 92; RESP 16; TEMP 97.6; O2SAT 98
[2017-08-25] VITALS (38 sets, daily range): BP systolic 91–154; BP diastolic 50–85; PULSE 72–108; RESP 18–39; TEMP 98.1; O2SAT 92–100
[2017-08-25] MEDS ORDERED: SODIUM CHLOR 0.9% 1000 ML INJ 1,000 ML IV ONE
[2017-08-25 00:02] LABS: AUTOMATED NEUTROPHIL # 10.6 TH/MM3 (1.8-7.7); BASOPHIL # 0.1 TH/MM3 (0-0.2); BASOPHIL % 0.4 % (0.0-2.0); EOSINOPHIL % 0.1 % (0.0-4.0); HEMATOCRIT 39.9 % (39.0-51.0); HEMOGLOBIN 13.4 GM/DL (13.0-17.0); LYMPH % 9.7 % (9.0-44.0); LYMPHOCYTE # 1.2 TH/MM3 (1.0-4.8); MEAN CELL VOLUME 90.6 FL (80.0-100.0); MEAN CORPUSCULAR HEMOGLOBIN 30.5 PG (27.0-34.0); MEAN CORPUSCULAR HGB CONC 33.6 % (32.0-36.0); MEAN PLATELET VOLUME 7.4 FL (7.0-11.0); MONO % 4.6 % (0.0-8.0); MONOCYTE # 0.6 TH/MM3 (0-0.9); NEUT % 85.2 % (16.0-70.0); PLATELET COUNT 193 TH/MM3 (150-450); RED CELL DISTRIBUTION WIDTH 15.3 % (11.6-17.2); WHITE BLOOD COUNT 12.4 TH/MM3 (4.0-11.0)
--- NOTE | 2017-08-25 00:12 | PD ---
HPI Chief Complaint: Altered Mental Status Time Seen by Provider: 23:48 Travel History International Travel<30 days: No Contact w/Intl Traveler<30days: No Traveled to known affect area: No History of Present Illness HPI Patient is an 81-year-old male who is been mentally altered somewhat for the last few days . Roomamtes waited to see if he returned to his normal baseline but he comes to the ER he is severely confused and seems very dry . His tongue is very dry looks like [place] appearance.. Patient is able to keep rspond to questions keeps saying " it's 2018 " but he says that to every question asked to him . he is disoriented but awake and seems delirious more than demented. Pt unable to provide details of possible causes to AMS /. His breathing later on in visit becomes abnormal and leads me to look at his saliscyclate levels and still unclear etiology of his altered mental status. other causes were ruling oiut. PFSH Past Medical History Atrial Fibrillation: Yes Blood Disorders: No Heart Rhythm Problems: Yes (afib) Cancer: Yes (melanoma) Cardiovascular Problems: Yes High Cholesterol: Yes Diminished Hearing: No Endocrine: No Gastrointestinal Disorders: Yes (Came in with abdominal pain ) Genitourinary: Yes (BPH with some retention) Implanted Vascular Access Dvce: No Insomnia: Yes Musculoskeletal: No Neurologic: No Psychiatric: No Past Surgical History Eye Surgery: Yes Other Surgery: Yes (right nare removal, pins to left shoulder ) Social History Alcohol Use: Yes (4-5 beers daily) Tobacco Use: Yes (pack and half a day ) Substance Use: No Allergies-Medications (Allergen,Severity, Reaction): Coded Allergies: No Known Allergies (Verified Allergy, Unknown, 08/25/17) Reported Meds & Prescriptions Reported Meds & Active Scripts Active Bentyl (Dicyclomine HCl) 10 Mg Cap 10 Mg PO TID PRN Sucralfate Liq (Sucralfate) 1 Gm/10 Ml Krystle 1 Gm PO ACHS 30 Days Norvasc (Amlodipine Besylate) 5 Mg Tab 5 Mg PO DAILY 30 Days Reported Doxazosin (Doxazosin Mesylate) 4 Mg Tab 4 Mg PO DAILY Trazodone (Trazodone HCl) 50 Mg Tab 50 Mg PO TID Omeprazole 20 Mg Tab 20 Mg PO DAILY Tamsulosin (Tamsulosin HCl) 0.4 Mg Cap 0.4 Mg PO HS Lovastatin 20 Mg Tab 20 Mg PO DAILY Review of Systems ROS Limitations: Altered Mental Status Physical Exam Narrative GENERAL: disheveled appearance confused awake possible toxic appearance delirium , no obvious focal deficits. SKIN: Warm and dry. HEAD: Atraumatic. Normocephalic. EYES: Pupils equal and round. No scleral icterus. No injection or drainage. ENT: No nasal bleeding or discharge. Mucous membranes pink and moist. NECK: Trachea midline. No JVD. CARDIOVASCULAR: Regular rate and rhythm. RESPIRATORY: after few hrs in ED appears to be having intermittent episodes of hyperventilation even though His O 2 sat remains normal . . Breath sounds equal bilaterally. GASTROINTESTINAL: Abdomen soft, non-tender, nondistended. Hepatic and splenic margins not palpable. MUSCULOSKELETAL: Extremities without clubbing, cyanosis, or edema. No obvious deformities. NEUROLOGICAL: Awake confused . No obvious cranial nerve deficits. Motor grossly within normal limits. Five out of 5 muscle strength in the arms and legs. limited speech due to altered mental status PSYCHIATRIC: AOx1 repeat " 2018" to most questions Data Data Last Documented VS Orders Orders Sodium Chlor 0.9% 1000 Ml Inj (Ns 1000 M (08/25/17 00:00) Sodium Chlor 0.9% 1000 Ml Inj (Ns 1000 M (08/25/17 00:00) Complete Blood Count With Diff (08/24/17 23:49) Comprehensive Metabolic Panel (08/24/17 23:49) Ckmb (Isoenzyme) Profile (08/24/17 23:49) Troponin I (08/24/17 23:49) Lipase (08/24/17 23:49) Magnesium (Mg) (08/24/17 23:49) Phosphorus (Po4) (08/24/17 23:49) Chest, Single Ap (08/24/17 23:49) Ct Brain W/O Iv Contrast(Rout) (08/24/17 23:49) Urinalysis - C+S If Indicated (08/24/17 23:49) CKMB (08/24/17 23:55) CKMB% (08/24/17 23:55) Admit Order (Ed Use Only) (08/25/17 03:02) Place In Observation (08/25/17 ) Vital Signs (Adult) Q4H (08/25/17 03:02) Activity Oob Ad Sita (08/25/17 03:02) Equipment Operator/Laborer / Telemetry .CONTINUOUS (08/25/17 03:02) Diet Heart Healthy (08/25/17 Breakfast) Sodium Chlor 0.9% 1000 Ml Inj (Ns 1000 M (08/25/17 03:02) Sodium Chloride 0.9% Flush (Ns Flush) (08/25/17 03:15) Sodium Chloride 0.9% Flush (Ns Flush) (08/25/17 09:00) Acetaminophen (Tylenol) (08/25/17 03:15) Ondansetron Inj (Zofran Inj) (08/25/17 03:15) Complete Blood Count With Diff (08/26/17 06:00) Pt Request For Service (08/25/17 03:02) Case Management Consult (08/25/17 03:02) Heparin Inj (Heparin Inj) (08/25/17 03:15) Naloxone Inj (Narcan Inj) (08/25/17 03:15) Magnesium Hydroxide Liq (Milk Of Magnesi (08/25/17 03:15) Sennosides (Senokot) (08/25/17 03:15) Bisacodyl Supp (Dulcolax Supp) (08/25/17 03:15) Lactulose Liq (Lactulose Liq) (08/25/17 03:15) Sodium Chlor 0.9% 1000 Ml Inj (Ns 1000 M (08/25/17 03:15) Alcohol (Ethanol) (08/24/17 23:55) Tylenol (Acetaminophen) (08/24/17 23:55) Labs Laboratory Tests Test 08/24/17 23:55 White Blood Count 12.4 TH/MM3 Red Blood Count 4.40 MIL/MM3 Hemoglobin 13.4 GM/DL Hematocrit 39.9 % Mean Corpuscular Volume 90.6 FL Mean Corpuscular Hemoglobin 30.5 PG Mean Corpuscular Hemoglobin Concent 33.6 % Red Cell Distribution Width 15.3 % Platelet Count 193 TH/MM3 Mean Platelet Volume 7.4 FL Neutrophils (%) (Auto) 85.2 % Lymphocytes (%) (Auto) 9.7 % Monocytes (%) (Auto) 4.6 % Eosinophils (%) (Auto) 0.1 % Basophils (%) (Auto) 0.4 % Neutrophils # (Auto) 10.6 TH/MM3 Lymphocytes # (Auto) 1.2 TH/MM3 Monocytes # (Auto) 0.6 TH/MM3 Eosinophils # (Auto) 0.0 TH/MM3 Basophils # (Auto) 0.1 TH/MM3 CBC Comment DIFF FINAL Differential Comment Urine Color YELLOW Urine Turbidity CLEAR Urine pH 5.5 Urine Specific [place] 1.025 Urine Protein 30 mg/dL Urine Glucose (UA) NEG mg/dL Urine Ketones 10 mg/dL Urine Occult Blood MOD Urine Nitrite NEG Urine Bilirubin NEG Urine Urobilinogen LESS THAN 2.0 MG/DL Urine Leukocyte Esterase NEG Urine RBC 2 /hpf Urine WBC 3 /hpf Urine Mucus FEW /lpf Microscopic Urinalysis Comment CULT NOT INDICATED Blood Urea Nitrogen 33 MG/DL Creatinine 1.15 MG/DL Random Glucose 83 MG/DL Total Protein 7.9 GM/DL Albumin 4.1 GM/DL Calcium Level 8.6 MG/DL Phosphorus Level 3.2 MG/DL Magnesium Level 2.5 MG/DL Alkaline Phosphatase 64 U/L Aspartate Amino Transf (AST/SGOT) 50 U/L Alanine Aminotransferase (ALT/SGPT) 23 U/L Total Bilirubin 0.5 MG/DL Sodium Level 142 MEQ/L Potassium Level 3.2 MEQ/L Chloride Level 114 MEQ/L Carbon Dioxide Level 16.8 MEQ/L Anion Gap 11 MEQ/L Estimat Glomerular Filtration Rate 61 ML/MIN Total Creatine Kinase 1198 U/L Creatine Kinase MB 16.1 NG/ML Creatine Kinase MB % 1.3 % Troponin I 0.05 NG/ML Lipase 141 U/L Salicylates Level 72.6 MG/DL Urine Opiates Screen NEG Acetaminophen Level LESS THAN 2.0 MCG/ML Urine Barbiturates Screen NEG Urine Amphetamines Screen NEG Urine Benzodiazepines Screen NEG Urine Cocaine Screen NEG Urine Cannabinoids Screen NEG Ethyl Alcohol Level LESS THAN 3 MG/DL MDM Medical Decision Making Medical Screen Exam Complete: Yes Emergency Medical Condition: Yes Differential Diagnosis ETOH intox or withdrawal, opite or other intox Overdose PNA and sepsis vs Urosepsis , Non ketotic hyperosmolar dehyration , vs DKA vs salicylate toxicity, Narrative Course After reviewing his UA and CXR and drug screen and and then evaluation of his respiration behavior I added on salicylate level that reyurms severely elevated 72 I immediately started alkalinization of his pH to help renal excretion of salicylates and called ICU admit to dialyze pt . I had given 2 liters NS then switched to placing 3 AMPs of HCO3 bicarb into D 5 W RUNNING IT AT 150 HR CORRECT ACID LEVEL AND INDUCE RENAL EXCRETION OF SALICYLATES CC TIME 45 MINUTES Critical Care Narrative 45 MIN CC TIME Matt Ramos MD Aug 25, 2017 00:12
[2017-08-25 00:13] LABS: BILIRUBIN, URINE NEG (NEG); BLOOD, URINE MOD (NEG); GLUCOSE,URINE NEG (NEG); KETONE, URINE 10 mg/dL (NEG); MUCUS URINE FEW /lpf (OCC); NITRITE,URINE NEG (NEG); PH, URINE 5.5 (5.0-8.5); URINE COLOR YELLOW (YELLW/STRAW); URINE LEUKOCYTE ESTERASE NEG (NEG)
--- NOTE | 2017-08-25 00:13 | RADRPT ---
EXAM DATE/TIME: 08/25/2017 00:02 [facility] COMPARISON: No previous studies available for comparison. INDICATIONS : Altered mental status. RADIATION DOSE: 56.35 CTDIvol (mGy) MEDICAL HISTORY : Non-responsive. SURGICAL HISTORY : Non-responsive. ENCOUNTER: Initial ACUITY: 1 day PAIN SCALE: Non-responsive LOCATION: cranial TECHNIQUE: Multiple contiguous axial images were obtained of the head. Using automated exposure control and adj ustment of the mA and/or kV according to patient size, radiation dose was kept as low as reasonably a chievable to obtain optimal diagnostic quality images. DICOM format image data is available electro nically for review and comparison. FINDINGS: There is diffuse atrophy. Patchy periventricular white matter disease is noted and felt to be related to chronic microvascular ischemic disease. There no signs of acute infarction or mass. No fractures are seen. In the left frontal subdural space a subtle hypodense collection is seen entering 6 mm in m aximal transverse width and extending along the left cerebral convexity from front to back. There is left to right shift of 1.9 mm. CONCLUSION: There is a hypodense subdural collection with slight left to right shift identified. 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 Duncan Odom MD on August 25, 2017 at 0:09 Board Certified Radiologist. This report was verified electronically.
[2017-08-25 00:32] LABS: ALT (GPT) 23 U/L (12-78); PHOSPHORUS 3.2 MG/DL (2.5-4.9)
--- NOTE | 2017-08-25 00:32 | RADRPT ---
EXAM DATE/TIME: 08/24/2017 23:59 [facility] COMPARISON: No previous studies available for comparison. INDICATIONS : Altered mental status. MEDICAL HISTORY : Hypercholesterolemia. Atrial fibrillation. Melanoma. Bladder retention SURGICAL HISTORY : Right nare removal. ENCOUNTER: Initial ACUITY: 1 day PAIN SCORE: Non-responsive. LOCATION: Bilateral chest FINDINGS: Cardiomegaly. Clear lungs. Degenerative changes of the spine. CONCLUSION: No acute disease. Duncan Odom MD on August 25, 2017 at 0:30 Board Certified Radiologist. This report was verified electronically.
[2017-08-25 00:46] LABS: ALBUMIN 4.1 GM/DL (3.4-5.0); ALKALINE PHOSPHATASE 64 U/L (45-117); AST (GOT) 50 U/L (15-37); BICARBONATE 16.8 MEQ/L (21.0-32.0); BLOOD UREA NITROGEN 33 MG/DL (7-18); CALCIUM 8.6 MG/DL (8.5-10.1); CHLORIDE 114 MEQ/L (98-107); CREATININE 1.15 MG/DL (0.60-1.30); GLOMERULAR FILTRATION RATE 61 ML/MIN (>89); GLUCOSE,RANDOM 83 MG/DL (74-106); MAGNESIUM 2.5 MG/DL (1.5-2.5); SODIUM (NA) 142 MEQ/L (136-145); TOTAL BILIRUBIN ADULT 0.5 MG/DL (0.2-1.0); TOTAL PROTEIN 7.9 GM/DL (6.4-8.2); TROPONIN I 0.05 NG/ML (0.02-0.05)
[2017-08-25] MEDS ORDERED: ONDANSETRON HCL 4 MG/2 ML VIAL IVP PRN (03:15)
[2017-08-25] MEDS ORDERED: NALOXONE HCL 0.4 MG/ML AMP IV PUSH PRN (03:15)
[2017-08-25] MEDS ORDERED: SODIUM CHLOR 0.9% 1000 ML INJ 1,000 ML IV SCH ×2 (03:15)
[2017-08-25] MEDS ORDERED: BISACODYL 10 MG SUPP RECTAL PRN (03:15)
[2017-08-25] MEDS ORDERED: ACETAMINOPHEN 325 MG TAB PO PRN ×2 (03:15→10:30)
[2017-08-25] MEDS ORDERED: diphenhydrAMINE HCL 50 MG/ML VIAL ONE (03:18)
[2017-08-25] MEDS ORDERED: LORazepam 2 MG/ML VIAL ONE (03:18)
[2017-08-25] MEDS ORDERED: HALOPERIDOL LACTATE 5 MG/ML AMP ONE (03:22)
[2017-08-25] MEDS ORDERED: LORazepam 2 MG/ML VIAL IV PUSH ONE (03:30)
[2017-08-25] MEDS ORDERED: diphenhydrAMINE HCL 50 MG/ML VIAL IV PUSH ONE (03:30)
[2017-08-25] MEDS ORDERED: HALOPERIDOL LACTATE 5 MG/ML AMP IV PUSH ONE (03:30)
--- NOTE | 2017-08-25 03:32 | HHI.HP ---
[facility] Unknown Admission Diagnosis dehydration rhabdo , chronic subdural Diagnoses: Travel History International Travel<30 Days: No Contact w/Intl Traveler <30 Da: No Traveled to Known Affected Are: No History of Present Illness 82-year-old male with a past medical history significant for hypertension, hyperlipidemia and BPH was brought to the emergency department for further evaluation of altered mental status. Per discussion with ER physician, the patient lives in a home with several roommates who first noticed a decline in the patient's condition approximately 2-3 days ago. They state that they were trying to get the patient to drink milk to see if that would help with his confusion however when he did not improve he was brought to the emergency department for further evaluation. At the time of my examination, the patient is sleeping. On awaking he is violent and confused. He is unable to tell me his name. His speech is garbled although he is speaking in sentences and stating that he "has to pee." He has no lateralizing signs/symptoms. Moves all 4 extremities spontaneously. Review of Systems Unable to obtain secondary to clinical condition Past Family Social History Past Medical History (Obtained from medical records) Hypertension Hyperlipidemia BPH Past Surgical History Left shoulder replacement Allergies: Coded Allergies: No Known Allergies (Verified Allergy, Unknown, 08/25/17) Family History Negative for CAD/DM Social History Smokes about a pack a day. Does drink about 2 beers a day. Denies illicit drugs Physical Exam Vital Signs Vital Signs Date Time Temp Pulse Resp B/P (MAP) Pulse Ox O2 Delivery O2 Flow Rate FiO2 08/25/17 02:46 90 18 136/63 (87) 97 08/24/17 23:47 97.6 92 16 149/70 (96) 98 Physical Exam GENERAL: Cachectic, disheveled, male sitting up in bed, sleeping SKIN: No rashes, ecchymoses or lesions. Cool and dry. HEAD: Atraumatic. Normocephalic. No temporal or scalp tenderness. EYES: Pupils equal round and reactive. Extraocular motions intact. No scleral icterus. No injection or drainage. ENT: Nose without bleeding, purulent drainage or septal hematoma. Throat without erythema, tonsillar hypertrophy or exudate. Uvula midline. Airway patent. NECK: Trachea midline. No JVD or lymphadenopathy. Supple, nontender, no meningeal signs. CARDIOVASCULAR: Regular rate and rhythm without murmurs, gallops, or rubs. RESPIRATORY: Clear to auscultation. Breath sounds equal bilaterally. No wheezes , rales, or rhonchi. GASTROINTESTINAL: Abdomen soft, non-tender, nondistended. No hepato-splenomegaly , or palpable masses. No guarding. MUSCULOSKELETAL: Extremities without clubbing, cyanosis, or edema. No joint tenderness, effusion, or edema noted. No calf tenderness. NEUROLOGICAL: 4 extremities spontaneously. Does not answer questions appropriately. Speaks in full sentences. Laboratory Laboratory Tests Test 08/24/17 23:55 White Blood Count 12.4 Red Blood Count 4.40 Hemoglobin 13.4 Hematocrit 39.9 Mean Corpuscular Volume 90.6 Mean Corpuscular Hemoglobin 30.5 Mean Corpuscular Hemoglobin Concent 33.6 Red Cell Distribution Width 15.3 Platelet Count 193 Mean Platelet Volume 7.4 Neutrophils (%) (Auto) 85.2 Lymphocytes (%) (Auto) 9.7 Monocytes (%) (Auto) 4.6 Eosinophils (%) (Auto) 0.1 Basophils (%) (Auto) 0.4 Neutrophils # (Auto) 10.6 Lymphocytes # (Auto) 1.2 Monocytes # (Auto) 0.6 Eosinophils # (Auto) 0.0 Basophils # (Auto) 0.1 CBC Comment DIFF FINAL Differential Comment Urine Color YELLOW Urine Turbidity CLEAR Urine pH 5.5 Urine Specific [place] 1.025 Urine Protein 30 Urine Glucose (UA) NEG Urine Ketones 10 Urine Occult Blood MOD Urine Nitrite NEG Urine Bilirubin NEG Urine Urobilinogen LESS THAN 2.0 Urine Leukocyte Esterase NEG Urine RBC 2 Urine WBC 3 Urine Mucus FEW Microscopic Urinalysis Comment CULT NOT INDICATED Blood Urea Nitrogen 33 Creatinine 1.15 Random Glucose 83 Total Protein 7.9 Albumin 4.1 Calcium Level 8.6 Phosphorus Level 3.2 Magnesium Level 2.5 Alkaline Phosphatase 64 Aspartate Amino Transf (AST/SGOT) 50 Alanine Aminotransferase (ALT/SGPT) 23 Total Bilirubin 0.5 Sodium Level 142 Potassium Level 3.2 Chloride Level 114 Carbon Dioxide Level 16.8 Anion Gap 11 Estimat Glomerular Filtration Rate 61 Total Creatine Kinase 1198 Creatine Kinase MB 16.1 Creatine Kinase MB % 1.3 Troponin I 0.05 Lipase 141 Result Diagram: 08/24/17235408/24/172354 Caprini VTE Risk Assessment Caprini VTE Risk Assessment: Mod/High Risk (score >= 2) Caprini Risk Assessment Model Point Value = 1 Point Value = 2 Point Value = 3 Point Value = 5 Age 41-60 Minor surgery BMI > 25 kg/m2 Swollen legs Varicose veins or History of unexplained or recurrent spontaneous Oral contraceptives or hormone replacement Sepsis (< 1 month) Serious lung disease, including pneumonia (< 1 month) Abnormal pulmonary function Acute myocardial infarction Congestive heart failure (< 1 month) History of inflammatory bowel disease Medical patient at bed rest Age 61-74 Arthroscopic surgery Major open surgery (> 45 min) Laparoscopic surgery (> 45 min) Malignancy Confined to bed (> 72 hours) Immobilizing plaster cast Central venous access Age >= 75 History of VTE Family history of VTE Factor V Leiden Prothrombin [id number] Lupus anticoagulant Anticardiolipin antibodies Elevated serum homocysteine Heparin-induced thrombocytopenia Other congenital or acquired thrombophilia Stroke (< 1 month) Elective arthroplasty Hip, pelvis, or leg fracture Acute spinal cord injury (< 1 month) Prophylaxis Regimen Total Risk Factor Score Risk Level Prophylaxis Regimen 0-1 Low Early ambulation 2 Moderate Order ONE of the following: *Sequential Compression Device (SCD) *Heparin 5000 units SQ BID 3-4 Higher Order ONE of the following medications: *Heparin 5000 units SQ TID *Enoxaparin/Lovenox 40 mg SQ daily (WT < 150 kg, CrCl > 30 mL/min) *Enoxaparin/Lovenox 30 mg SQ daily (WT < 150 kg, CrCl > 10-29 mL/min) *Enoxaparin/Lovenox 30 mg SQ BID (WT < 150 kg, CrCl > 30 mL/min) AND/OR *Sequential Compression Device (SCD) 5 or more Highest Order ONE of the following medications: *Heparin 5000 units SQ TID (Preferred with Epidurals) *Enoxaparin/Lovenox 40 mg SQ daily (WT < 150 kg, CrCl > 30 mL/min) *Enoxaparin/Lovenox 30 mg SQ daily (WT < 150 kg, CrCl > 10-29 mL/min) *Enoxaparin/Lovenox 30 mg SQ BID (WT < 150 kg, CrCl > 30 mL/min) AND *Sequential Compression Device (SCD) Assessment and Plan Assessment and Plan Assessment/plan: 1. Altered mental status Unclear etiology CT of the head shows a chronic subdural hematoma with slight [id number] shift , unlikely cause of patient's altered mental status Chest x-ray, UA without signs of active infection May be secondary to alcohol, urine drug screen and alcohol levels pending Monitor 2. Rhabdomyolysis CK 1198 Per report, patient has been altered and mostly immobile 3 days Aggressive IV fluid hydration Monitor renal function 3. Hypokalemia By mouth repletion Monitor BMP 4. Alcohol abuse CIWA protocol 5. Hypertension/hyperlipidemia Continue home medications once medication reconciliation complete FEN Heart healthy diet Electrolytes: as above NS at 150 cc/hr Holding pharmacologic anticoagulation secondary to subdural hematoma Lizbet Yanes MD Aug 25, 2017 03:32
[2017-08-25] MEDS: SODIUM CHLOR 0.9% 1000 ML INJ 1,000 ML IV SCH ×2 (03:33→13:43)
[2017-08-25] MEDS: HEPARIN SODIUM - SQ 10,000 UNITS/ML VIAL SQ SCH ×3 (03:41→20:55)
[2017-08-25] MEDS ORDERED: LORazepam 2 MG TAB PO PRN (03:45)
[2017-08-25] MEDS ORDERED: LORazepam 1 MG TAB PO PRN (03:45)
[2017-08-25] MEDS ORDERED: FLUMAZENIL 0.5 MG/5 ML VIAL IV PUSH PRN (03:45)
[2017-08-25] MEDS ORDERED: LORazepam 2 MG/ML VIAL IV PUSH PRN ×4 (03:45)
[2017-08-25] MEDS ORDERED: POTASSIUM CHLORIDE 25 MEQ EFFERVESCENT TAB PO ONE (04:15)
[2017-08-25 04:23] LABS: ACETAMINOPHEN LESS THAN 2.0 MCG/ML (10.0-30.0)
[2017-08-25] MEDS: SODIUM BICARBONATE 8.4% INJ 150 MEQ in DEXTROSE 5% IN WATE 1000ML INJ 1,000 ML IV SCH ×6 (06:24→20:55)
[2017-08-25 06:44] LABS: BICARBONATE 18.3 MEQ/L (21.0-32.0); CALCIUM 7.4 MG/DL (8.5-10.1); CREATININE 1.11 MG/DL (0.60-1.30); TOTAL BILIRUBIN ADULT 0.5 MG/DL (0.2-1.0); TOTAL PROTEIN 7.8 GM/DL (6.4-8.2)
[2017-08-25] MEDS ORDERED: ROCURONIUM INJ 50 MG/5 ML VIAL ONE (06:58)
[2017-08-25] MEDS ORDERED: PROPOFOL 500 MG/50 ML INJ 50 ML ONE ×2 (06:59→16:44)
[2017-08-25 07:10] LABS: CALCIUM-PROTEIN CORRECTED 7.1 MG/DL (8.5-10.1)
[2017-08-25] MEDS ORDERED: CHLORHEXIDINE GLUCONATE 2 % 1 PACK (2 CLOTHS)(extra cloths) TOPICAL PRN (07:15)
[2017-08-25] MEDS ORDERED: SODIUM PHOSPHATE INJ 30 MMOL in SODIUM CHLOR 0.9% 250 ML INJ 240 ML IV PRN (07:45)
[2017-08-25] MEDS ORDERED: DEXTROSE 50% IN WATER 50 ML VIAL(D50) IV PUSH PRN (07:45)
[2017-08-25] MEDS ORDERED: POTASSIUM PHOSPHATE MONOBASIC 500 MG TAB PO PRN (07:45)
[2017-08-25] MEDS ORDERED: POTASSIUM CHLOR 40 MEQ PREMIX 100 ML IV PRN (07:45)
[2017-08-25] MEDS ORDERED: POTASSIUM CHLORIDE 25 MEQ EFFERVESCENT TAB PO PRN (07:45)
[2017-08-25] MEDS ORDERED: POTASSIUM CHLOR 20 MEQ PREMIX 100 ML IV PRN ×2 (07:45)
[2017-08-25] MEDS ORDERED: MAGNESIUM SULFATE INJ 4 GM in SODIUM CHLORIDE 0.9% INJ 92 ML IV PRN (07:45)
[2017-08-25] MEDS ORDERED: MAGNESIUM SULFATE INJ 2 GM in SODIUM CHLORIDE 0.9% INJ 96 ML IV PRN (07:45)
[2017-08-25] MEDS ORDERED: MAGNESIUM OXIDE 400 MG TAB PO PRN (07:45)
[2017-08-25] MEDS ORDERED: POTASSIUM PHOSPHATE MONOBASIC 500 MG TAB PO/TUBE PRN (07:45)
--- NOTE | 2017-08-25 07:46 | RADRPT ---
EXAM DATE/TIME: 08/25/2017 07:21 [place] COMPARISON: CHEST SINGLE AP, August 24, 2017, 23:59. INDICATIONS : Evaluate for central line placement. MEDICAL HISTORY : Hypercholesterolemia. Atrial fibrillation. Melanoma. Bladder retention. SURGICAL HISTORY : Right nare removal. ENCOUNTER: Subsequent ACUITY: 1 day PAIN SCORE: Non-responsive. LOCATION: chest FINDINGS: A single view of the chest demonstrates the lungs to be symmetrically aerated without evidence of mas s, infiltrate or effusion. Endotracheal tube 6 cm above the tabatha. Right subclavian central line wit h tip in the SVC. Right jugular line with tip also in the SVC. The cardiomediastinal contours are unr emarkable. Osseous structures are intact. CONCLUSION: Support lines and tubes as described above. Beto Antoine MD on August 25, 2017 at 7:41 Board Certified Radiologist. This report was verified electronically.
--- NOTE | 2017-08-25 08:08 | PD.CONS ---
[facility] Service Critical Care Medicine Consult Requested By Dr. Yanes Reason for Consult salicylate overdose Primary Care Physician Unknown History of Present Illness This is an 82-year-old male with a past medical history of hypertension and hyperlipidemia who was brought to the emergency department after being found altered. Per hospital records, the patient had been declining for the last 2-3 days. He was brought in the emergency department where he was only oriented to self. He continued to decline and became unresponsive. ABG is significant for severe combined acidosis: 7.13/52/78. salicylate level is 72.6, ck 1200, Cr 1.1 , wbc 12.4. I was called by Dr. Yanes about emergent transfer to the ICU. the patient came into the ICU during my conversation and I immediately evaluated the patient who at this point was unresponsive and agonal. I emergently intubated the patient (see separate procedure note for details). I then placed central line and dialysis catheter emergently, as well as arterial line for serial ABGs. I discussed the case then with Dr. Nagel who agrees with emergent dialysis. Review of Systems ROS Limitations: Clinical Condition, Intubated, Altered Mental Status, Unresponsive Past Family Social History Allergies: Coded Allergies: No Known Allergies (Verified Allergy, Unknown, 08/25/17) Past Medical History unobtainable secondary to the clinical condition of the patient. per chart review: Hypertension Hyperlipidemia BPH chronic subdural hematoma Past Surgical History unobtainable from the patient due to clinical condition. per chart review: Left shoulder replacement Reported Medications unobtainable from the patient due to clinical condition. per chart review: Reported Meds & Active Scripts Bentyl (Dicyclomine HCl) 10 Mg Cap 10 Mg PO TID PRN Sucralfate Liq (Sucralfate) 1 Gm/10 Ml Krystle 1 Gm PO ACHS 30 Days Norvasc (Amlodipine Besylate) 5 Mg Tab 5 Mg PO DAILY 30 Days Doxazosin (Doxazosin Mesylate) 4 Mg Tab 4 Mg PO DAILY Trazodone (Trazodone HCl) 50 Mg Tab 50 Mg PO TID Omeprazole 20 Mg Tab 20 Mg PO DAILY Tamsulosin (Tamsulosin HCl) 0.4 Mg Cap 0.4 Mg PO HS Lovastatin 20 Mg Tab 20 Mg PO DAILY Active Ordered Medications See MAR Family History unobtainable from the patient due to clinical condition. unlikely to be contributory to his acute illness. Social History unobtainable from the patient due to clinical condition. per chart review: Smokes about a pack a day. Does drink about 2 beers a day. Denies illicit drugs Physical Exam Vital Signs Vital Signs Date Time Temp Pulse Resp B/P (MAP) Pulse Ox O2 Delivery O2 Flow Rate FiO2 08/25/17 06:50 08/25/17 05:37 105 22 154/66 (95) 95 Nasal Cannula 2.00 08/25/17 02:46 90 18 136/63 (87) 97 08/24/17 23:47 97.6 92 16 149/70 (96) 98 Physical Exam GENERAL: Elderly frail cachectic male, lying in bed, obtunded, unresponsive HEENT: Normocephalic. Atraumatic. Pupils equal, round, reactive, conjugate. Mucous membranes are dry NECK: Trachea is midline. There is no JVD. CHEST: Agonal respirations. Labored. Equal chest rise. CARDIOVASCULAR: Tachycardic rate, regular rhythm. Sinus by telemetry. Frequent PVCs ABDOMEN: Soft, scaphoid nontender, nondistended. No guarding. MUSCULOSKELETAL: Pulses 2+. No peripheral edema. NEUROLOGICAL: GCS 3. Obtunded. Unresponsive. Laboratory Laboratory Tests Test 08/24/17 23:55 08/25/17 05:11 08/25/17 05:33 08/25/17 06:30 White Blood Count 12.4 Red Blood Count 4.40 Hemoglobin 13.4 Hematocrit 39.9 Mean Corpuscular Volume 90.6 Mean Corpuscular Hemoglobin 30.5 Mean Corpuscular Hemoglobin Concent 33.6 Red Cell Distribution Width 15.3 Platelet Count 193 Mean Platelet Volume 7.4 Neutrophils (%) (Auto) 85.2 Lymphocytes (%) (Auto) 9.7 Monocytes (%) (Auto) 4.6 Eosinophils (%) (Auto) 0.1 Basophils (%) (Auto) 0.4 Neutrophils # (Auto) 10.6 Lymphocytes # (Auto) 1.2 Monocytes # (Auto) 0.6 Eosinophils # (Auto) 0.0 Basophils # (Auto) 0.1 CBC Comment DIFF FINAL Differential Comment Urine Color YELLOW Urine Turbidity CLEAR Urine pH 5.5 Urine Specific [place] 1.025 Urine Protein 30 Urine Glucose (UA) NEG Urine Ketones 10 Urine Occult Blood MOD Urine Nitrite NEG Urine Bilirubin NEG Urine Urobilinogen LESS THAN 2.0 Urine Leukocyte Esterase NEG Urine RBC 2 Urine WBC 3 Urine Mucus FEW Microscopic Urinalysis Comment CULT NOT INDICATED Blood Urea Nitrogen 33 36 Creatinine 1.15 1.11 Random Glucose 83 86 Total Protein 7.9 7.8 Albumin 4.1 4.0 Calcium Level 8.6 7.4 Phosphorus Level 3.2 Magnesium Level 2.5 Alkaline Phosphatase 64 65 Aspartate Amino Transf (AST/SGOT) 50 59 Alanine Aminotransferase (ALT/SGPT) 23 23 Total Bilirubin 0.5 0.5 Sodium Level 142 145 Potassium Level 3.2 3.4 Chloride Level 114 120 Carbon Dioxide Level 16.8 18.3 Anion Gap 11 7 Estimat Glomerular Filtration Rate 61 63 Total Creatine Kinase 1198 Creatine Kinase MB 16.1 Creatine Kinase MB % 1.3 Troponin I 0.05 Lipase 141 Salicylates Level 72.6 60.9 Urine Opiates Screen NEG Acetaminophen Level LESS THAN 2.0 Urine Barbiturates Screen NEG Urine Amphetamines Screen NEG Urine Benzodiazepines Screen NEG Urine Cocaine Screen NEG Urine Cannabinoids Screen NEG Ethyl Alcohol Level LESS THAN 3 Protein Corrected Calcium 7.1 Blood Gas Puncture Site LT RADIAL Blood Gas Patient Temperature 98.6 Blood Gas HCO3 17 Blood Gas Base Excess -10.7 Blood Gas Oxygen Saturation 89 Arterial Blood pH 7.13 Arterial Blood Partial Pressure CO2 52 Arterial Blood Partial Pressure O2 78 Arterial Blood Oxygen Content 16.5 Arterial Blood Carboxyhemoglobin 0.3 Arterial Blood Methemoglobin 0.9 Blood Gas Hemoglobin 13.2 Oxygen Delivery Device NASAL CANNULA Blood Gas Liter Flow 2 Result Diagram: 08/24/17 1115 08/25/17 0511 Imaging Last Impressions Head CT 08/24/172348 Signed Impressions: Service Date/Time: Friday, August 25, 2017 00:02 - CONCLUSION: There is a hypodense subdural collection with slight left to right shift identified. The appearance suggests a chronic subdural hematoma. Duncan Odom MD Chest X-Ray 08/24/17 0854 Signed Impressions: Service Date/Time: Thursday, August 24, 2017 23:59 - CONCLUSION: No acute disease. Duncan Odom MD Assessment and Plan Assessment and Plan Assessment: 82yM with 2-3 days of altered mental status, found to have acute severe life-threatening salicylate overdose, acute kidney injury, acute rhabdomyolysis, severe metabolic acidosis. very life-threatening and may not survive this illness given the sub-acute nature of the symptoms, as they may have been ongoing for days. I have attempted to contact the only contacts we have for him: a son and a friend. I was unable to reach them. He remains very critically ill. Plan by systems: Neurologic: Toxic encephalopathy - serial salicylate levels - emergent dialysis - q1h neuro checks - propofol as needed for RASS goal -2. Respiratory: Acute hypoxic and hypercarbic respiratory failure - vent bundle, hob elevated, nebs - no weaning of mechanical ventilation until salicylate toxicity resolved. - have initiated hyperventilation to alkalinize: rr 24, tv 600, peep 5, fio2 40% . - serial ABGs. Cardiovascular: Sinus tachycardia Acute intravascular volume depletion - IV fluid resuscitation - We'll not take any fluid off dialysis Renal: Acute kidney injury Acute rhabdomyolysis -- Strict I/Os - Emergent dialysis - Trend CKs FEN/GI: Acute intravascular volume depletion Metabolic acidosis Severe acute protein calorie malnutrition - ICU electrolyte protocol - NPO - emergent dialysis - trend ABGs - sodium bicarb at 150cc/hr. Heme/ID: no infectious etiology suspected leukocytosis likely reactive. Endocrine: hyperglycemia of critical illness SSI q6h med scale keep on d10w to prevent hypoglycemia given unknown ingestion. Prophylaxis: GI Prophylaxis pepcid DVT Prophylaxis -- SCDs history of chronic subdurals, old. ok for SQH. Lines: 2/3: right SC TLC 2/3: right IJ vascath 2/3: right radial art line 2/3: chery. Dispo: Admit to ICU. very critically ill. This patient remains critically ill with one or more organ systems which are or may become a threat to life. I have spent in excess of 81 minutes discontinuously in the care and management of this patient. This time is exclusive of procedures, and includes, but is not limited to, evaluation of the patient, review of the medical record, discussions with family, consultants, nursing staff, or respiratory therapy, and documentation in the medical record. Tobi Mcdonald MD Aug 25, 2017 08:08
[2017-08-25] MEDS: DEXTROSE 10% INJ 1,000 ML IV SCH ×2 (08:15→20:56)
--- NOTE | 2017-08-25 08:23 | PD.PROCEDR ---
Procedure Note Procedure Endotracheal Intubation Diagnosis: Toxic encephalopathy Indications: GCS of 3, toxic encephalopathy, acute hypoxic and hypercarbic respiratory failure. Patient has salicylate toxicity with about respiratory alkalosis component, severely mixed acidosis Consent: Emergent Anesthesia: None. The patient requires no anesthesia. Patient is obtunded. Description of the Procedure: The patient was positioned in the sniffing position. Pre-oxygenation was performed using a [id number]. A Muro #2 was used for laryngoscopy and a Grade IIB view was obtained. A 8.5 cuffed endotracheal tube was inserted atraumatically through the vocal cords. Confirmation of correct endotracheal tube placement was made by equal and bilateral breath sounds and colorimetric CO2 detection. The endotracheal tube was secured at 26 cm at the teeth. There were no immediate complications noted. The patient remained hemodynamically stable throughout the procedure. A chest x-ray has been ordered. I personally performed the procedure. Tobi Mcdonald MD Aug 25, 2017 08:23
--- NOTE | 2017-08-25 08:25 | PD.PROCEDR ---
Procedure Note Procedure Procedure: Arterial Line Placement Right radial arterial line Diagnosis: Salicylate overdose Indications: Serial arterial blood gas sampling Consent: Emergent Description of the Procedure: The right wrist was prepped and draped sterilely. 1% lidocaine was used for local anesthesia. The pulse was located and a needle was advanced into the artery. A 20 gauge, 12 cm catheter was advanced into the artery using a modified Seldinger technique. The catheter was sutured to the skin and a sterile dressing was applied. The catheter was connected to a pressure transducer and an arterial waveform was noted. There were no immediate complications noted. There was minimal EBL. I personally performed the procedure. Tobi Mcdonald MD Aug 25, 2017 08:25
--- NOTE | 2017-08-25 08:26 | PD.PROCEDR ---
Procedure Note Procedure Central Line Procedure Note Right subclavian 7 [place] 20 cm triple lumen catheter Diagnosis: Salicylate toxicity Indications: For highly potent vasoactive substances Consent: Emergent Anesthesia: none Description of the Procedure: The patient was placed in the supine, mild- Trendelenburg position. The area was prepped and draped sterilely. A 19g needle was inserted under negative pressure aspiration and dark venous blood was obtained. A guidewire was inserted easily without resistance. A small incision was made using a #11 blade. Using a modified Seldinger technique, the dilator and 7 [place], 20 cm catheter were advanced over the guidewire without resistance. All ports were aspirated and flushed, and had brisk blood return. The line was secured at the skin using 2-0 silk interrupted sutures. A Biopatch and Transparent sterile dressing were applied. There were no immediate complications noted. There was minimal EBL. The patient tolerated the procedure well. Ultrasound guidance was not used for this procedure A Chest x-ray has been ordered. I personally performed the procedure. Tobi Mcdonald MD Aug 25, 2017 08:26
--- NOTE | 2017-08-25 08:28 | PD.PROCEDR ---
Procedure Note Procedure Central Line Procedure Note Right IJ 14 [place] 20 cm dialysis catheter Diagnosis: Salicylate toxicity Indications: Emergent dialysis Consent: Emergent Anesthesia: none Description of the Procedure: The patient was placed in the supine, mild- Trendelenburg position. The area was prepped and draped sterilely. A 19g needle was inserted under negative pressure aspiration and dark venous blood was obtained. A guidewire was inserted easily without resistance. A small incision was made using a #11 blade. Using a modified Seldinger technique, the dilator and 14 [place] 20 cm catheter were advanced over the guidewire without resistance. All ports were aspirated and flushed, and had brisk blood return. The line was secured at the skin using 2-0 silk interrupted sutures. A Biopatch and Transparent sterile dressing were applied. There were no immediate complications noted. There was minimal EBL. The patient tolerated the procedure well. Ultrasound Guidance: Ultrasound guidance was used to identify the internal jugular vein. The vascular anatomy of the right anterior neck was normal. The vessel was cannulated under direct, real-time ultrasound visualization. After placement of the guidewire, confirmation of the guidewire in the lumen of the vessel was made using ultrasound visualization, before dilation of the tract. A Chest x-ray has been ordered. I personally performed the procedure. Tobi Mcdonald MD Aug 25, 2017 08:27
[2017-08-25 08:32] LABS: HEMATOCRIT 37.9 % (39.0-51.0); MEAN CELL VOLUME 91.8 FL (80.0-100.0); MEAN CORPUSCULAR HEMOGLOBIN 31.6 PG (27.0-34.0); MEAN CORPUSCULAR HGB CONC 34.4 % (32.0-36.0); MEAN PLATELET VOLUME 7.4 FL (7.0-11.0); PLATELET COUNT 184 TH/MM3 (150-450); RED BLOOD COUNT 4.13 MIL/MM3 (4.50-5.90); RED CELL DISTRIBUTION WIDTH 15.2 % (11.6-17.2); WHITE BLOOD COUNT 14.5 TH/MM3 (4.0-11.0)
[2017-08-25 08:48] LABS: INTERNATIONAL NORMALIZED RATIO 1.9 RATIO; PROTHROMBIN TIME - PATIENT 19.4 SEC (9.8-11.6)
[2017-08-25] MEDS: SODIUM CHLORIDE 0.9% FLUSH 10 ML FLUSH IV FLUSH SCH ×2 (08:49→20:55)
[2017-08-25] MEDS: CHLORHEXIDINE 0.12% (ORAL KIT) 15 ML CUP MT SCH ×2 (08:50→21:02)
[2017-08-25 09:13] LABS: ACETAMINOPHEN LESS THAN 2.0 MCG/ML (10.0-30.0); BICARBONATE 19.7 MEQ/L (21.0-32.0); BLOOD UREA NITROGEN 38 MG/DL (7-18); CALCIUM 7.2 MG/DL (8.5-10.1); CHLORIDE 118 MEQ/L (98-107); CREATININE 1.16 MG/DL (0.60-1.30); GLOMERULAR FILTRATION RATE 60 ML/MIN (>89); GLUCOSE,RANDOM 121 MG/DL (74-106); MAGNESIUM 2.6 MG/DL (1.5-2.5); PHOSPHORUS 5.3 MG/DL (2.5-4.9); SODIUM (NA) 144 MEQ/L (136-145)
[2017-08-25 10:00] LABS: TOTAL PROTEIN 7.4 GM/DL (6.4-8.2)
[2017-08-25] MEDS: RESP: ALBUTEROL 2.5 MG/IPRATROPIUM 0.5 MG NEB (SCH) INH ×3 (10:00→20:43)
[2017-08-25 10:09] LABS: CALCIUM-PROTEIN CORRECTED 7.1 MG/DL (8.5-10.1)
[2017-08-25] MEDS ORDERED: MANNITOL 12.5 GM/50 ML VIAL IV PUSH PRN (10:30)
[2017-08-25] MEDS ORDERED: HEPARIN SODIUM - IV 10,000 UNITS/10 ML VIAL OTHER PRN (10:30)
[2017-08-25] MEDS ORDERED: GENTAMICIN SULFATE 20 MG/2 ML VIAL OTHER PRN (10:30)
[2017-08-25] MEDS ORDERED: ALBUMIN 25% 25 GM/100 ML BAG IV PRN (10:30)
[2017-08-25] MEDS ORDERED: cloNIDine HCL 0.1 MG TAB PO PRN (10:30)
[2017-08-25] MEDS ORDERED: ONDANSETRON HCL 4 MG/2 ML VIAL IV PUSH PRN (10:30)
[2017-08-25] MEDS ORDERED: SODIUM CHLORIDE 0.9% FLUSH 10 ML FLUSH IV FLUSH PRN (10:30)
[2017-08-25] MEDS ORDERED: GELATIN 12 MM/7 MM FOAM TOPICAL PRN (10:30)
[2017-08-25] MEDS ORDERED: NITROGLYCERIN 0.4 MG SL 25 TABS/BTL SL PRN (10:30)
[2017-08-25] MEDS ORDERED: HEPARIN SODIUM - IV 10,000 UNITS/10 ML VIAL IV FLUSH PRN (10:30)
[2017-08-25] MEDS ORDERED: SODIUM CHLOR 0.9% 1000 ML OTHER PRN ×2 (10:30)
[2017-08-25] MEDS ORDERED: NS 250 ML IV PRN (10:30)
--- NOTE | 2017-08-25 10:30 | PD.CONS ---
HPI Service Nephrology Consult Requested By Dr. Yanes Reason for Consult Salicylate overdose Primary Care Physician Unknown History of Present Illness Patient is a 82-year-old male who is obtunded, intubated spoke to Dr. Mcdonald this morning who stated that the he needs to be dialyzed as his salicylate levels were high and he was in altered mental status with metabolic acidosis, he is on hemodialysis unable to obtain any history, per records that he been in altered mental status and confused for the past 2 or 3 days and his condition worsened and he became more lethargic. Review of Systems ROS Limitations: Clinical Condition Past Family Social History Allergies: Coded Allergies: No Known Allergies (Verified Allergy, Unknown, 08/25/17) Past Medical History Hypertension Hyperlipidemia BPH Past Surgical History Left shoulder replacement Reported Medications Reported Meds & Active Scripts Active Bentyl (Dicyclomine HCl) 10 Mg Cap 10 Mg PO TID PRN Sucralfate Liq (Sucralfate) 1 Gm/10 Ml Krystle 1 Gm PO ACHS 30 Days Norvasc (Amlodipine Besylate) 5 Mg Tab 5 Mg PO DAILY 30 Days Reported Doxazosin (Doxazosin Mesylate) 4 Mg Tab 4 Mg PO DAILY Trazodone (Trazodone HCl) 50 Mg Tab 50 Mg PO TID Omeprazole 20 Mg Tab 20 Mg PO DAILY Tamsulosin (Tamsulosin HCl) 0.4 Mg Cap 0.4 Mg PO HS Lovastatin 20 Mg Tab 20 Mg PO DAILY Active Ordered Medications Current Medications Medications (Trade) Dose Ordered Sig/Ortega Route Start Time Stop Time Status Last Admin Sodium Chloride 1,000 ml @ 42 mls/hr [id number] IV 08/25/17 03:02 08/25/17 03:33 (NS Flush) 2 ml UNSCH PRN IV FLUSH 08/25/17 03:15 (NS Flush) 2 ml BID IV FLUSH 08/25/17 09:00 (Tylenol) 650 mg Q4H PRN PO 08/25/17 03:15 (Zofran Inj) 4 mg Q6H PRN IVP 08/25/17 03:15 (Heparin Inj) 5,000 units Q8H SQ 08/25/17 03:15 08/25/17 03:41 (Narcan Inj) 0.4 mg UNSCH PRN IV PUSH 08/25/17 03:15 (Milk Of Magnesia Liq) 30 ml Q12H PRN PO 08/25/17 03:15 (Senokot) 17.2 mg Q12H PRN PO 08/25/17 03:15 (Dulcolax Supp) 10 mg DAILY PRN RECTAL 08/25/17 03:15 (Lactulose Liq) 30 ml DAILY PRN PO 08/25/17 03:15 Sodium Bicarbonate 150 meq/Dextrose 1,150 ml @ 150 mls/hr [id number] IV 08/25/17 05:30 08/25/17 06:24 Miscellaneous Information Patient in critical care unit? Ass... [id number] .XX 08/25/17 07:15 (Chlorhexidine 2% Cloth) 3 pack DAILY@04 TOPICAL 08/26/17 04:00 08/30/17 04:01 (Chlorhexidine 2% Cloth) 3 pack UNSCH PRN TOPICAL 08/25/17 07:15 08/30/17 07:14 (Peridex 0.12% Liq) 15 ml BID@08,20 MT 08/25/17 08:00 08/25/17 08:50 Potassium Chloride 100 ml @ 50 mls/hr Q2H PRN IV 08/25/17 07:45 Potassium Chloride 100 ml @ 50 mls/hr Q2H PRN IV 08/25/17 07:45 (K-Lyte Cl Eff) 50 meq UNSCH PRN PO 08/25/17 07:45 Potassium Chloride 100 ml @ 25 mls/hr UNSCH PRN IV 08/25/17 07:45 Potassium Chloride 100 ml @ 50 mls/hr Q2H PRN IV 08/25/17 07:45 Magnesium Sulfate 4 gm/Sodium Chloride 100 ml @ 50 mls/hr UNSCH PRN IV 08/25/17 07:45 (Mag-Ox) 800 mg UNSCH PRN PO 08/25/17 07:45 Magnesium Sulfate 2 gm/Sodium Chloride 100 ml @ 50 mls/hr UNSCH PRN IV 08/25/17 07:45 (K-Phos) 2,000 mg Q4H PRN PO 08/25/17 07:45 Sodium Phosphate 30 mmol/Sodium Chloride 250 ml @ 42 mls/hr UNSCH PRN IV 08/25/17 07:45 (K-Phos) 2,000 mg UNSCH PRN PO/TUBE 08/25/17 07:45 Potassium Phosphate 30 mmol/ Sodium Chloride 260 ml @ 42 mls/hr UNSCH PRN IV 08/25/17 07:45 (D50w (Vial) Inj) 25 ml UNSCH PRN IV PUSH 08/25/17 07:45 (NovoLIN R SUPPLEMENTAL SCALE) 1 Q6HR SQ 08/25/17 12:00 (Duoneb Neb) 1 ampule Q6HR NEB INH 08/25/17 10:00 08/25/17 10:00 (Duoneb Neb) 1 ampule Q2HR NEB PRN INH 08/25/17 07:45 Dextrose 1,000 ml @ 42 mls/hr [id number] IV 08/25/17 08:15 08/25/17 08:15 Sodium Chloride 1,000 ml @ 0 mls/hr TITRATE PRN OTHER 08/25/17 10:30 (Heparin Inj) 8,000 units UNSCH PRN IV FLUSH 08/25/17 10:30 Sodium Chloride 1,000 ml @ 200 mls/hr Q5H PRN OTHER 08/25/17 10:30 Sodium Chloride 200 ml @ 0 mls/hr UNSCH PRN IV 08/25/17 10:30 (Mannitol Inj) 12.5 gm UNSCH PRN IV PUSH 08/25/17 10:30 Albumin Human 100 ml @ 60 mls/hr UNSCH PRN IV 08/25/17 10:30 (NS Flush) 5 ml UNSCH PRN IV FLUSH 08/25/17 10:30 (Heparin Inj) Dwell Heparin to f... UNSCH PRN OTHER 08/25/17 10:30 (Gentamicin Inj) 10 mg UNSCH PRN OTHER 08/25/17 10:30 (Gelfoam 12 Mm/7 Mm Top) 1 foam UNSCH PRN TOPICAL 08/25/17 10:30 (Zofran Inj) 4 mg UNSCH PRN IV PUSH 08/25/17 10:30 (Tylenol) 650 mg UNSCH X1 PRN PO 08/25/17 10:30 08/25/17 23:59 (Benadryl) 25 mg UNSCH PRN PO 08/25/17 10:30 (Nitrostat Sl) 0.4 mg UNSCH PRN SL 08/25/17 10:30 (Catapres) 0.1 mg UNSCH PRN PO 08/25/17 10:30 Family History Noncontributory Social History History of smoking half pack per day Physical Exam Vital Signs Vital Signs Date Time Temp Pulse Resp B/P (MAP) Pulse Ox O2 Delivery O2 Flow Rate FiO2 08/25/17 10:00 106 08/25/17 08:00 102 08/25/17 08:00 98.1 108 26 108/56 (73) 92 08/25/17 08:00 96 40 08/25/17 06:50 08/25/17 05:37 105 22 154/66 (95) 95 Nasal Cannula 2.00 08/25/17 02:46 90 18 136/63 (87) 97 08/24/17 23:47 97.6 92 16 149/70 (96) 98 Physical Exam GENERAL: mal-nourished, well-developed patient. On ventilator SKIN: Warm and dry. HEAD: Normocephalic. EYES: No scleral icterus. No injection or drainage. NECK: Supple, intubated CARDIOVASCULAR: Tachycardia RESPIRATORY: Breath sounds equal bilaterally. No accessory muscle use. GASTROINTESTINAL: Abdomen soft, non-tender, nondistended. EXTREMITIES: No cyanosis, or edema. NEUROLOGICAL: Obtunded Laboratory Laboratory Tests Test 08/24/17 23:55 08/25/17 05:11 08/25/17 05:33 08/25/17 06:30 White Blood Count 12.4 Red Blood Count 4.40 Hemoglobin 13.4 Hematocrit 39.9 Mean Corpuscular Volume 90.6 Mean Corpuscular Hemoglobin 30.5 Mean Corpuscular Hemoglobin Concent 33.6 Red Cell Distribution Width 15.3 Platelet Count 193 Mean Platelet Volume 7.4 Neutrophils (%) (Auto) 85.2 Lymphocytes (%) (Auto) 9.7 Monocytes (%) (Auto) 4.6 Eosinophils (%) (Auto) 0.1 Basophils (%) (Auto) 0.4 Neutrophils # (Auto) 10.6 Lymphocytes # (Auto) 1.2 Monocytes # (Auto) 0.6 Eosinophils # (Auto) 0.0 Basophils # (Auto) 0.1 CBC Comment DIFF FINAL Differential Comment Urine Color YELLOW Urine Turbidity CLEAR Urine pH 5.5 Urine Specific Willow 1.025 Urine Protein 30 Urine Glucose (UA) NEG Urine Ketones 10 Urine Occult Blood MOD Urine Nitrite NEG Urine Bilirubin NEG Urine Urobilinogen LESS THAN 2.0 Urine Leukocyte Esterase NEG Urine RBC 2 Urine WBC 3 Urine Mucus FEW Microscopic Urinalysis Comment CULT NOT INDICATED Blood Urea Nitrogen 33 36 Creatinine 1.15 1.11 Random Glucose 83 86 Total Protein 7.9 7.8 Albumin 4.1 4.0 Calcium Level 8.6 7.4 Phosphorus Level 3.2 Magnesium Level 2.5 Alkaline Phosphatase 64 65 Aspartate Amino Transf (AST/SGOT) 50 59 Alanine Aminotransferase (ALT/SGPT) 23 23 Total Bilirubin 0.5 0.5 Sodium Level 142 145 Potassium Level 3.2 3.4 Chloride Level 114 120 Carbon Dioxide Level 16.8 18.3 Anion Gap 11 7 Estimat Glomerular Filtration Rate 61 63 Total Creatine Kinase 1198 Creatine Kinase MB 16.1 Creatine Kinase MB % 1.3 Troponin I 0.05 Lipase 141 Salicylates Level 72.6 60.9 Urine Opiates Screen NEG Acetaminophen Level LESS THAN 2.0 Urine Barbiturates Screen NEG Urine Amphetamines Screen NEG Urine Benzodiazepines Screen NEG Urine Cocaine Screen NEG Urine Cannabinoids Screen NEG Ethyl Alcohol Level LESS THAN 3 Protein Corrected Calcium 7.1 Blood Gas Puncture Site LT RADIAL Blood Gas Patient Temperature 98.6 Blood Gas HCO3 17 Blood Gas Base Excess -10.7 Blood Gas Oxygen Saturation 89 Arterial Blood pH 7.13 Arterial Blood Partial Pressure CO2 52 Arterial Blood Partial Pressure O2 78 Arterial Blood Oxygen Content 16.5 Arterial Blood Carboxyhemoglobin 0.3 Arterial Blood Methemoglobin 0.9 Blood Gas Hemoglobin 13.2 Oxygen Delivery Device NASAL CANNULA Blood Gas Liter Flow 2 Test 08/25/17 08:10 08/25/17 10:15 White Blood Count 14.5 Red Blood Count 4.13 Hemoglobin 13.0 Hematocrit 37.9 Mean Corpuscular Volume 91.8 Mean Corpuscular Hemoglobin 31.6 Mean Corpuscular Hemoglobin Concent 34.4 Red Cell Distribution Width 15.2 Platelet Count 184 Mean Platelet Volume 7.4 Prothrombin Time 19.4 Prothromb Time International Ratio 1.9 Activated Partial Thromboplast Time 30.6 Blood Gas Puncture Site ART LINE Blood Gas Patient Temperature 98.6 Blood Gas HCO3 16 Blood Gas Base Excess -9.9 Blood Gas Oxygen Saturation 91 Arterial Blood pH 7.27 Arterial Blood Partial Pressure CO2 36 Arterial Blood Partial Pressure O2 79 Arterial Blood Oxygen Content 16.6 Arterial Blood Carboxyhemoglobin 0.5 Arterial Blood Methemoglobin 1.5 Blood Gas Hemoglobin 12.8 Oxygen Delivery Device VENTILATOR Blood Gas Ventilator Setting A/C 600/26/5PEEP Blood Gas Inspired Oxygen 40 Blood Urea Nitrogen 38 Creatinine 1.16 Random Glucose 121 Total Protein 7.4 Calcium Level 7.2 Phosphorus Level 5.3 Magnesium Level 2.6 Sodium Level 144 Potassium Level 3.6 Chloride Level 118 Carbon Dioxide Level 19.7 Anion Gap 6 Estimat Glomerular Filtration Rate 60 Lactic Acid Level 0.6 Protein Corrected Calcium 7.1 Total Creatine Kinase 1787 Creatine Kinase MB 24.4 Creatine Kinase MB % 1.4 Acetaminophen Level LESS THAN 2.0 Result Diagram: 08/25/17 0810 08/25/17 0810 Imaging Last Impressions Chest X-Ray 08/25/17 0000 Signed Impressions: Service Date/Time: Friday, August 25, 2017 07:21 - CONCLUSION: Support lines and tubes as described above. Beto Antoine MD Head CT 08/24/17 2349 Signed Impressions: Service Date/Time: Friday, August 25, 2017 00:02 - CONCLUSION: There is a hypodense subdural collection with slight left to right shift identified. The appearance suggests a chronic subdural hematoma. Duncan Odom MD Assessment and Plan Problem List: (1) Salicylate intoxication ICD Codes: T39.091A - Poisoning by salicylates, accidental (unintentional), initial encounter Plan: Patient with high salicylate level and has altered mental status as above discussed the condition with Dr. Mcdonald and ordered emergent dialysis, he is on dialysis tolerating it well Follow salicylate level Follow blood gas monitor BMP critically ill (2) Acidosis, metabolic ICD Codes: E87.2 - Acidosis Plan: Due to salicylate intoxication (3) Respiratory failure ICD Codes: J96.90 - Respiratory failure, unspecified, unspecified whether with hypoxia or hypercapnia Plan: Broadcast News Producer following (4) Rhabdomyolysis ICD Codes: M62.82 - Rhabdomyolysis Plan: Follow Abbie Wing MD Aug 25, 2017 10:30
[2017-08-25] MEDS: INSULIN NovoLIN REGULAR SUPPLEMENTAL SCALE SQ SCH ×3 (11:48→23:14)
[2017-08-25 13:41] LABS: BICARBONATE 29.7 MEQ/L (21.0-32.0); CALCIUM 8.6 MG/DL (8.5-10.1); CREATININE 0.63 MG/DL (0.60-1.30); MAGNESIUM 2.2 MG/DL (1.5-2.5); PHOSPHORUS 0.9 MG/DL (2.5-4.9)
[2017-08-25] MEDS ORDERED: PROPOFOL 1000 MG/100 ML INJ 100 ML IV PRN (14:30)
[2017-08-25] MEDS: POTASSIUM CHLOR 40 MEQ PREMIX 100 ML IV SCH ×2 (14:31→16:49)
--- NOTE | 2017-08-25 14:32 | EKG ---
Date Performed: 08/25/2017 Time Performed: 05:10:59 PTAGE: 82 years EKG: ATRIAL FIBRILLATION WITH RAPID VENTRICULAR RESPONSE WITH ABERRANT CONDUCTION OR VENTRICULAR PREMATURE COMPLEXES Left axis deviation. Poor intitial anterior forces, may be normal variant. When compared to previous tracing, ventricular response from the Atrial fibrillation is somewhat faster an d the premature ventricular Contraction is new. ABNORMAL ECG PREVIOUS TRACING : 06/18/2017 10.47 DOCTOR: Selvin Deluca Interpretating Date/Time 08/25/2017 14:32:11
[2017-08-25 14:40] LABS: BACTERIA, URINE FEW /hpf; BILIRUBIN, URINE NEG (NEG); BLOOD, URINE LARGE (NEG); CALCIUM OXALATE CRYSTALS,URINE FEW /hpf; GLUCOSE,URINE NEG (NEG); HYALINE CAST, URINE 21 /lpf (RARE); KETONE, URINE 10 mg/dL (NEG); MUCUS URINE FEW /lpf (OCC); NITRITE,URINE NEG (NEG); PH, URINE 5.5 (5.0-8.5); SQUAMOUS EPITHELIAL CELL URINE 1 /hpf (0-5); URINE LEUKOCYTE ESTERASE LARGE (NEG); WHITE BLOOD CELL CLUMPS FEW
[2017-08-25 14:41] LABS: URINE COLOR AMBER (YELLW/STRAW)
[2017-08-25] MEDS ORDERED: POTASSIUM CHLORIDE INJ 40 MEQ in SODIUM CHLORID 0.9% 500 ML INJ 500 ML IV-CENTRAL ONE (15:00)
[2017-08-25] MEDS ORDERED: RASS Change Order XX ONE (17:00)
[2017-08-25] MEDS: PROPOFOL 1000 MG/100 ML IV PRN (20:56)
[2017-08-25] MEDS: POTASSIUM CHLOR 40 MEQ PREMIX 100 ML IV PRN (21:54)
[2017-08-26] VITALS (18 sets, daily range): BP systolic 102–165; BP diastolic 55–82; PULSE 89–133; RESP 18–25; TEMP 97.9–99.4; O2SAT 94–99
[2017-08-26] MEDS: POTASSIUM CHLOR 40 MEQ PREMIX 100 ML IV PRN ×3 (00:13→06:21)
[2017-08-26] MEDS: SODIUM CHLOR 0.9% 1000 ML INJ 1,000 ML IV SCH ×2 (01:47→16:46)
[2017-08-26] MEDS: CHLORHEXIDINE GLUCONATE 2 % 1 PACK (2 CLOTHS)(taper/protocol) TOPICAL SCH ×2 (02:48→20:00)
[2017-08-26] MEDS: HEPARIN SODIUM - SQ 10,000 UNITS/ML VIAL SQ SCH ×3 (03:09→20:39)
[2017-08-26] MEDS: RESP: ALBUTEROL 2.5 MG/IPRATROPIUM 0.5 MG NEB (SCH) INH ×4 (04:08→21:39)
[2017-08-26] MEDS: INSULIN NovoLIN REGULAR SUPPLEMENTAL SCALE SQ SCH ×4 (05:10→23:47)
[2017-08-26 05:50] LABS: AUTOMATED NEUTROPHIL # 7.5 TH/MM3 (1.8-7.7); BASOPHIL % 0.4 % (0.0-2.0); EOSINOPHIL % 0.2 % (0.0-4.0); HEMATOCRIT 33.1 % (39.0-51.0); HEMOGLOBIN 11.6 GM/DL (13.0-17.0); LYMPH % 14.8 % (9.0-44.0); LYMPHOCYTE # 1.4 TH/MM3 (1.0-4.8); MEAN CELL VOLUME 90.2 FL (80.0-100.0); MEAN CORPUSCULAR HEMOGLOBIN 31.6 PG (27.0-34.0); MEAN CORPUSCULAR HGB CONC 35.1 % (32.0-36.0); MEAN PLATELET VOLUME 7.5 FL (7.0-11.0); MONO % 6.9 % (0.0-8.0); MONOCYTE # 0.7 TH/MM3 (0-0.9); NEUT % 77.7 % (16.0-70.0); PLATELET COUNT 141 TH/MM3 (150-450); RED BLOOD COUNT 3.67 MIL/MM3 (4.50-5.90); RED CELL DISTRIBUTION WIDTH 15.2 % (11.6-17.2); WHITE BLOOD COUNT 9.7 TH/MM3 (4.0-11.0)
[2017-08-26 06:05] LABS: INTERNATIONAL NORMALIZED RATIO 1.4 RATIO
[2017-08-26 06:10] LABS: ALBUMIN 3.3 GM/DL (3.4-5.0); BICARBONATE 32.7 MEQ/L (21.0-32.0); CALCIUM 7.7 MG/DL (8.5-10.1); CREATININE 1.01 MG/DL (0.60-1.30)
[2017-08-26 06:17] LABS: DIRECT BILIRUBIN ADULT 0.1 MG/DL (0.0-0.2); INDIRECT BILIRUBIN 0.2 MG/DL (0.0-0.8); TOTAL BILIRUBIN ADULT 0.3 MG/DL (0.2-1.0)
[2017-08-26] MEDS: PROPOFOL 1000 MG/100 ML IV PRN (06:21)
--- NOTE | 2017-08-26 07:54 | HHI.CCPN ---
Subjective Remarks/Hospital Course Hospital Course: This is an 82-year-old male with a past medical history of hypertension and hyperlipidemia who was brought to the emergency department after being found altered. Per hospital records, the patient had been declining for the last 2-3 days. He was brought in the emergency department where he was only oriented to self. He continued to decline and became unresponsive. ABG is significant for severe combined acidosis: 7.13/52/78. salicylate level is 72.6, ck 1200, Cr 1.1 , wbc 12.4. I was called by Dr. Yanes about emergent transfer to the ICU. the patient came into the ICU during my conversation and I immediately evaluated the patient who at this point was unresponsive and agonal. I emergently intubated the patient (see separate procedure note for details). I then placed central line and dialysis catheter emergently, as well as arterial line for serial ABGs. I discussed the case then with Dr. Nagel who agrees with emergent dialysis. Subjective: 08/26: salicylate level still elevated, although downtrending. CKs still elevated and uptrended throughout the day. uop marginal at best. more awake than yesterday. discussed with poison control, ok to stop trending salicylate levels. Objective Vital Signs Date Time Temp Pulse Resp B/P (MAP) Pulse Ox O2 Delivery O2 Flow Rate FiO2 08/26/17 07:39 95 40 08/26/17 06:00 104 08/26/17 04:00 97.9 20 102/68 (79) 108/55 (72) 08/25/17 05:37 Nasal Cannula 2.00 Intake and Output 08/26/17 08/26/17 08/27/17 08:00 16:00 00:00 Intake Total 2425 ml Output Total 279 ml Balance 2146 ml Result Diagram: 08/26/17 0500 08/26/17 0500 Other Results Laboratory Tests Test 08/25/17 08:10 08/25/17 14:24 Blood Gas Puncture Site ART LINE ART LINE Blood Gas Patient Temperature 98.6 98.6 Blood Gas HCO3 16 mmol/L (22-26) 28 mmol/L (22-26) Blood Gas Base Excess -9.9 mmol/L (-2-2) 6.3 mmol/L (-2-2) Blood Gas Oxygen Saturation 91 % (90-100) 94 % (90-100) Arterial Blood pH 7.27 (7.380-7.420) 7.63 (7.380-7.420) Arterial Blood Partial Pressure CO2 36 mmHg (38-42) 26 mmHg (38-42) Arterial Blood Partial Pressure O2 79 mmHg (61-120) 66 mmHg (61-120) Arterial Blood Oxygen Content 16.6 Vol % (12.0-20.0) 15.9 Vol % (12.0-20.0) Arterial Blood Carboxyhemoglobin 0.5 % (0-4) 1.2 % (0-4) Arterial Blood Methemoglobin 1.5 % (0-2) 1.2 % (0-2) Blood Gas Hemoglobin 12.8 G/DL (12.0-16.0) 12.0 G/DL (12.0-16.0) Oxygen Delivery Device VENTILATOR VENTILATOR Blood Gas Ventilator Setting A/C 600/26/5PEEP A/C 600/26/5PEEP Blood Gas Inspired Oxygen 40 % 40 % Imaging Last Impressions Head CT [id number]/24/172348 Signed Impressions: Service Date/Time: Friday, August 25, 2017 00:02 - CONCLUSION: There is a hypodense subdural collection with slight left to right shift identified. The appearance suggests a chronic subdural hematoma. Duncan Odom MD Chest X-Ray [id number]/24/[id number] Signed Impressions: Service Date/Time: Thursday, August 24, 2017 23:59 - CONCLUSION: No acute disease. Duncan Odom MD Objective Remarks GENERAL: Elderly frail cachectic male, lying in bed, intubated, sedated, critically ill HEENT: Normocephalic. Atraumatic. Pupils equal, round, reactive, conjugate. Mucous membranes are still dry. NECK: Trachea is midline. There is no JVD. CHEST: PRVC, 40% fio2, clear bilaterally. CARDIOVASCULAR: Tachycardic rate, irregularly irregular rhythm. afib by tele. ABDOMEN: Soft, scaphoid nontender, nondistended. No guarding. MUSCULOSKELETAL: Pulses 2+. No peripheral edema. NEUROLOGICAL: GCS 3. Obtunded. Unresponsive. A/P Assessment and Plan Assessment: 82yM with 2-3 days of altered mental status, found to have acute severe life-threatening salicylate overdose, acute kidney injury, acute rhabdomyolysis, severe metabolic acidosis. No need for renal replacement therapy today, though given his severe renal insult, may not have complete return of renal function. remains oliguric. close monitoring of uop. encephalopathy persists and will attempt to wean sedation for better neuro exam. remains critically ill, off pathway. still high risk for morbidity or mortality. Plan by systems: Neurologic: Toxic encephalopathy - salicylate subtherapeutic now. can stop trending. - emergent dialysis 2/3 - q1h neuro checks - wean sedation. may need to transition to precedex. - goal RASS -2. Respiratory: Acute hypoxic and hypercarbic respiratory failure - vent bundle, hob elevated, nebs - cleared to start SBTs today. Cardiovascular: Atrial fibrillation with rapid ventricular response Acute intravascular volume depletion - continue IV fluid resuscitation - need aggressive electrolyte replacement. afib likely secondary to SIRS and catecholamine response. Renal: Acute kidney injury Acute rhabdomyolysis -- Strict I/Os - Emergent dialysis 2/3 - Trend CKs - continue ivf. FEN/GI: Acute intravascular volume depletion Metabolic acidosis - resolved Severe acute protein calorie malnutrition - ICU electrolyte protocol - NPO. will need tube feeds later today if we don't clinically improve. - emergent dialysis 2/3. - does not need HAT STOCK LAMINATING MACHINE OPERATOR today. Heme/ID: no infectious etiology suspected leukocytosis likely reactive. Endocrine: hyperglycemia of critical illness SSI q6h med scale keep on d10w to prevent hypoglycemia given unknown ingestion. Prophylaxis: GI Prophylaxis pepcid DVT Prophylaxis -- SCDs history of chronic subdurals, old. ok for SQH. Lines: 2/3: right SC TLC 2/3: right IJ vascath 2/3: right radial art line 2/3: chery. Dispo: remain in ICU. very critically ill. This patient remains critically ill with one or more organ systems which are or may become a threat to life. I have spent in excess of 31 minutes discontinuously in the care and management of this patient. This time is exclusive of procedures, and includes, but is not limited to, evaluation of the patient, review of the medical record, discussions with family, consultants, nursing staff, or respiratory therapy, and documentation in the medical record. Tobi Mcdonald MD Aug 26, 2017 07:54
[2017-08-26] MEDS: CHLORHEXIDINE 0.12% (ORAL KIT) 15 ML CUP MT SCH ×2 (08:00→20:00)
[2017-08-26] MEDS: SODIUM CHLORIDE 0.9% FLUSH 10 ML FLUSH IV FLUSH SCH ×2 (08:34→20:39)
[2017-08-26] MEDS: MAGNESIUM SULFATE 1 GM PREMIX 100 ML IV SCH ×2 (08:34→09:42)
--- NOTE | 2017-08-26 11:34 | HHI.NPPN ---
Subjective History of Present Illness 82 year old male with salicylate overdose Objective Data Data 08/26/17 08/27/17 19:00 07:00 Intake Total 400 ml Output Total 225 ml Balance 175 ml Intake IV Total 400 ml Output Urine Total 225 ml Vital Signs Date Time Temp Pulse Resp B/P (MAP) Pulse Ox O2 Delivery O2 Flow Rate FiO2 08/26/17 11:14 40 08/26/17 10:00 97 08/26/17 08:00 40 08/26/17 08:00 98.7 117 18 126/73 (90) 98 138/70 (92) 08/26/17 08:00 104 08/26/17 07:39 95 40 08/26/17 06:00 104 08/26/17 04:04 94 40 08/26/17 04:00 99 08/26/17 04:00 40 08/26/17 04:00 97.9 99 20 102/68 (79) 95 108/55 (72) 08/26/17 02:00 89 08/26/17 00:15 97 40 08/26/17 00:00 99.4 110 20 130/82 (98) 98 147/69 (95) 08/26/17 00:00 40 08/26/17 00:00 110 08/25/17 22:00 90 08/25/17 20:37 95 40 08/25/17 20:00 98.1 97 20 135/68 (90) 95 151/71 (97) 08/25/17 20:00 97 08/25/17 20:00 40 08/25/17 18:00 85 08/25/17 16:45 77 20 142/61 (88) 99 08/25/17 16:30 74 20 118/58 (78) 99 136/56 (82) 08/25/17 16:15 77 20 131/54 (79) 97 08/25/17 16:00 75 08/25/17 16:00 76 20 105/56 (72) 97 132/57 (82) 08/25/17 16:00 40 18 15:45 74 20 126/53 (77) 98 08/25/17 15:34 100 40 08/25/17 15:30 72 20 103/56 (72) 99 123/53 (76) 08/25/17 15:15 80 20 121/53 (75) 98 08/25/17 15:00 76 20 114/56 (75) 96 140/57 (84) 08/25/17 14:45 77 20 146/61 (89) 97 08/25/17 14:30 77 106/59 (75) 98 127/57 (80) 08/25/17 14:15 75 126/55 (78) 97 08/25/17 14:00 81 104/59 (74) 97 126/59 (81) 08/25/17 14:00 84 08/25/17 13:45 77 104/50 (68) 97 08/25/17 13:30 81 93/53 (66) 97 111/53 (72) 08/25/17 13:15 87 115/53 (73) 96 08/25/17 13:00 99 116/85 (95) 93 121/62 (81) 08/25/17 12:45 97 106/54 (71) 96 08/25/17 12:30 100 110/67 (81) 98 115/59 (77) 08/25/17 12:15 99 125/61 (82) 96 08/25/17 12:00 40 08/25/17 12:00 97 08/25/17 12:00 99 111/72 (85) 99 126/63 (84) 08/25/17 11:45 93 37 124/61 (82) 100 08/25/17 11:30 97 39 99/64 (76) 97 112/62 (79) -: 08/26/17 0500 08/26/17 0500 Microbiology 08/25/17 Urine Culture, Received Pending Physical Exam General Appearance: Well Developed Neck Neck Exam: Neck Supple Pulmonary Resp Exam: Clear Bilaterally, Breath Sounds Equal Cardiology CV Exam: Regular, Normal Sinus Rhythm Gastrointestinal/Abdomen GI Exam: Soft, Non-Tender, Bowel Sounds Present Extremeties Extremities Exam: No Edema Neurologic Neuro Exam: Alert, Awake, Oriented Assessment/Plan Problem List: (1) Salicylate intoxication ICD Codes: T39.091A - Poisoning by salicylates, accidental (unintentional), initial encounter Plan: Patient resolved salicylate intoxication, levels declined after dialysis no further dialysis needed replace K I will follow as needed (2) Acidosis, metabolic ICD Codes: E87.2 - Acidosis Plan: Due to salicylate intoxication resolved (3) Respiratory failure ICD Codes: J96.90 - Respiratory failure, unspecified, unspecified whether with hypoxia or hypercapnia Plan: Coal Handling Supervisor following (4) Rhabdomyolysis ICD Codes: M62.82 - Rhabdomyolysis Plan: Follow CPK (5) Subdural hematoma, chronic ICD Codes: I62.03 - Nontraumatic chronic subdural hemorrhage Plan: continue to monitor Abbie Nagel MD Aug 26, 2017 11:34
[2017-08-26] MEDS ORDERED: POTASSIUM CHLORIDE INJ 30 MEQ in SODIUM CHLORIDE 0.9% INJ 100 ML IV-CENTRAL ONE (11:45)
[2017-08-26 15:30] LABS: FREE T4 0.59 NG/DL (0.76-1.46)
[2017-08-26] MEDS: DEXTROSE 10% INJ 1,000 ML IV SCH (20:39)
[2017-08-26] MEDS ORDERED: DILTIAZEM HCL 25 MG/5 ML (Bolus) IV PUSH ONE (22:45)
[2017-08-26] MEDS: DILTIAZEM 125 MG/NS 100 ML IV PRN ×2 (22:55)
[2017-08-27] VITALS (29 sets, daily range): BP systolic 105–160; BP diastolic 55–92; PULSE 90–145; RESP 19–32; TEMP 97.2–99.4; O2SAT 93–98
[2017-08-27] MEDS: RESP: ALBUTEROL 2.5 MG/IPRATROPIUM 0.5 MG NEB (SCH) INH ×4 (04:36→21:16)
[2017-08-27] MEDS: HEPARIN SODIUM - SQ 10,000 UNITS/ML VIAL SQ SCH (04:39)
[2017-08-27 05:03] LABS: HEMATOCRIT 23.3 % (39.0-51.0); HEMOGLOBIN 8.1 GM/DL (13.0-17.0); MEAN CORPUSCULAR HGB CONC 34.7 % (32.0-36.0); MEAN PLATELET VOLUME 7.6 FL (7.0-11.0); PLATELET COUNT 132 TH/MM3 (150-450); RED BLOOD COUNT 2.53 MIL/MM3 (4.50-5.90); RED CELL DISTRIBUTION WIDTH 15.2 % (11.6-17.2)
[2017-08-27] MEDS: INSULIN NovoLIN REGULAR SUPPLEMENTAL SCALE SQ SCH ×4 (05:06→23:40)
[2017-08-27 05:09] LABS: INTERNATIONAL NORMALIZED RATIO 1.3 RATIO; PROTHROMBIN TIME - PATIENT 12.7 SEC (9.8-11.6)
[2017-08-27 05:41] LABS: ALBUMIN 2.7 GM/DL (3.4-5.0); BICARBONATE 27.8 MEQ/L (21.0-32.0); CALCIUM 7.3 MG/DL (8.5-10.1); CREATININE 0.68 MG/DL (0.60-1.30); DIRECT BILIRUBIN ADULT 0.2 MG/DL (0.0-0.2); INDIRECT BILIRUBIN 0.2 MG/DL (0.0-0.8); TOTAL BILIRUBIN ADULT 0.4 MG/DL (0.2-1.0); TOTAL PROTEIN 5.4 GM/DL (6.4-8.2)
[2017-08-27 06:35] LABS: CALCIUM-PROTEIN CORRECTED 8.2 MG/DL (8.5-10.1)
[2017-08-27 07:09] LABS: AUTOMATED NEUTROPHIL # 7.1 TH/MM3 (1.8-7.7); BASOPHIL % 0.3 % (0.0-2.0); EOSINOPHIL % 0.1 % (0.0-4.0); HEMATOCRIT 21.3 % (39.0-51.0); HEMOGLOBIN 7.3 GM/DL (13.0-17.0); LYMPHOCYTE # 1.1 TH/MM3 (1.0-4.8); MEAN CELL VOLUME 92.1 FL (80.0-100.0); MEAN CORPUSCULAR HEMOGLOBIN 31.7 PG (27.0-34.0); MEAN CORPUSCULAR HGB CONC 34.4 % (32.0-36.0); MEAN PLATELET VOLUME 7.7 FL (7.0-11.0); MONO % 9.3 % (0.0-8.0); MONOCYTE # 0.8 TH/MM3 (0-0.9); NEUT % 78.3 % (16.0-70.0); PLATELET COUNT 121 TH/MM3 (150-450); RED BLOOD COUNT 2.32 MIL/MM3 (4.50-5.90); RED CELL DISTRIBUTION WIDTH 15.2 % (11.6-17.2); WHITE BLOOD COUNT 9.1 TH/MM3 (4.0-11.0)
--- NOTE | 2017-08-27 07:49 | HHI.CCPN ---
Subjective Remarks/Hospital Course Hospital Course: This is an 82-year-old male with a past medical history of hypertension and hyperlipidemia who was brought to the emergency department after being found altered. Per hospital records, the patient had been declining for the last 2-3 days. He was brought in the emergency department where he was only oriented to self. He continued to decline and became unresponsive. ABG is significant for severe combined acidosis: 7.13/52/78. salicylate level is 72.6, ck 1200, Cr 1.1 , wbc 12.4. I was called by Dr. Yanes about emergent transfer to the ICU. the patient came into the ICU during my conversation and I immediately evaluated the patient who at this point was unresponsive and agonal. I emergently intubated the patient (see separate procedure note for details). I then placed central line and dialysis catheter emergently, as well as arterial line for serial ABGs. I discussed the case then with Dr. Nagel who agrees with emergent dialysis. Subjective: 08/26: salicylate level still elevated, although downtrending. CKs still elevated and uptrended throughout the day. uop marginal at best. more awake than yesterday. discussed with poison control, ok to stop trending salicylate levels. 08/27 Patient is on 4L oxygen. Had large black tarry stool BM this morning Hgb dropped 7.3 from 11.6 yesterday. Afebrile. On Cardizem drip 10mg/hr. ASA level 10.5 this morning. Objective Vital Signs Date Time Temp Pulse Resp B/P (MAP) Pulse Ox O2 Delivery O2 Flow Rate FiO2 08/27/17 06:00 122 08/27/17 04:00 98.8 27 110/55 (73) 96 08/27/17 04:00 Nasal Cannula 4.00 08/26/17 12:00 40 Intake and Output 08/27/17 08/27/17 08/28/17 08:00 16:00 00:00 Output Total 1225 ml Balance -1225 ml Result Diagram: 08/27/17 0640 08/27/17 0430 Other Results Laboratory Tests Test 08/26/17 08:40 08/26/17 12:20 08/26/17 14:10 08/26/17 21:00 Salicylates Level 10.5 MG/DL Blood Gas Puncture Site ART LINE Blood Gas Patient Temperature 98.6 Blood Gas HCO3 28 mmol/L Blood Gas Base Excess 4.1 mmol/L Blood Gas Oxygen Saturation 96 % Arterial Blood pH 7.47 Arterial Blood Partial Pressure CO2 38 mmHg Arterial Blood Partial Pressure O2 102 mmHg Arterial Blood Oxygen Content 15.0 Vol % Arterial Blood Carboxyhemoglobin 0.8 % Arterial Blood Methemoglobin 1.4 % Blood Gas Hemoglobin 11.1 G/DL Oxygen Delivery Device VENTILATOR Blood Gas Ventilator Setting CPAP 5/10PS Blood Gas Inspired Oxygen 40 % Potassium Level 3.7 MEQ/L Total Creatine Kinase 1538 U/L 1658 U/L Creatine Kinase MB 5.4 NG/ML 3.3 NG/ML Creatine Kinase MB % 0.4 % 0.2 % Free Thyroxine 0.59 NG/DL Thyroid Stimulating Hormone 3rd Gen 2.550 uIU/ML Test 08/27/17 04:30 08/27/17 06:40 White Blood Count 9.0 TH/MM3 9.1 TH/MM3 Red Blood Count 2.53 MIL/MM3 2.32 MIL/MM3 Hemoglobin 8.1 GM/DL 7.3 GM/DL Hematocrit 23.3 % 21.3 % Mean Corpuscular Volume 92.0 FL 92.1 FL Mean Corpuscular Hemoglobin 32.0 PG 31.7 PG Mean Corpuscular Hemoglobin Concent 34.7 % 34.4 % Red Cell Distribution Width 15.2 % 15.2 % Platelet Count 132 TH/MM3 121 TH/MM3 Mean Platelet Volume 7.6 FL 7.7 FL Prothrombin Time 12.7 SEC Prothromb Time International Ratio 1.3 RATIO Activated Partial Thromboplast Time 34.3 SEC Blood Urea Nitrogen 48 MG/DL Creatinine 0.68 MG/DL Random Glucose 101 MG/DL Total Protein 5.4 GM/DL Albumin 2.7 GM/DL Calcium Level 7.3 MG/DL Alkaline Phosphatase 40 U/L Aspartate Amino Transf (AST/SGOT) 63 U/L Alanine Aminotransferase (ALT/SGPT) 27 U/L Total Bilirubin 0.4 MG/DL Direct Bilirubin 0.2 MG/DL Sodium Level 142 MEQ/L Potassium Level 4.1 MEQ/L Chloride Level 109 MEQ/L Carbon Dioxide Level 27.8 MEQ/L Anion Gap 5 MEQ/L Estimat Glomerular Filtration Rate 111 ML/MIN Protein Corrected Calcium 8.2 MG/DL Indirect Bilirubin 0.2 MG/DL Total Creatine Kinase 1335 U/L Creatine Kinase MB 2.9 NG/ML Creatine Kinase MB % 0.2 % Neutrophils (%) (Auto) 78.3 % Lymphocytes (%) (Auto) 12.0 % Monocytes (%) (Auto) 9.3 % Eosinophils (%) (Auto) 0.1 % Basophils (%) (Auto) 0.3 % Neutrophils # (Auto) 7.1 TH/MM3 Lymphocytes # (Auto) 1.1 TH/MM3 Monocytes # (Auto) 0.8 TH/MM3 Eosinophils # (Auto) 0.0 TH/MM3 Basophils # (Auto) 0.0 TH/MM3 CBC Comment DIFF FINAL Differential Comment Imaging Last Impressions Chest X-Ray 08/25/17 0000 Signed Impressions: Service Date/Time: Friday, August 25, 2017 07:21 - CONCLUSION: Support lines and tubes as described above. Beto Antoine MD Head CT 08/24/17 2349 Signed Impressions: Service Date/Time: Friday, August 25, 2017 00:02 - CONCLUSION: There is a hypodense subdural collection with slight left to right shift identified. The appearance suggests a chronic subdural hematoma. Duncan Oodm MD Objective Remarks GENERAL: Elderly frail cachectic male, lying in bed in NAD HEENT: Normocephalic. Atraumatic. Pupils equal, round, reactive, conjugate. Mucous membranes are still dry. NECK: Trachea is midline. There is no JVD. CHEST: PRVC, 40% fio2, clear bilaterally. CARDIOVASCULAR: Tachycardic rate, irregularly irregular rhythm. afib by tele. ABDOMEN: Soft, scaphoid nontender, nondistended. No guarding. MUSCULOSKELETAL: Pulses 2+. No peripheral edema. NEUROLOGICAL: Awake A/P Assessment and Plan Plan by systems: Neurologic: Toxic encephalopathy- resolved - salicylate subtherapeutic now. 10.5 this morning - emergent dialysis 2/3 - neuro checks Respiratory: Acute hypoxic and hypercarbic respiratory failure- Extubated 2/4 Continue with oxygen keep sat >92% Bronchodilators, Cardiovascular: Atrial fibrillation with rapid ventricular response Wean off Cardizem drip monitor HR and BP keep MAP>65mmHG Check 2D echo to eval LV function Renal: Acute kidney injury-imprving Acute rhabdomyolysis -Monitor renal function, I/O's, electrolytes replacement per protocol. -s/p Emergent dialysis 2/3 Change IVF D5NS@75ml/hr monitor CK's . FEN/GI: GI bleed Anemia 2nd acute blood loss Severe acute protein calorie malnutrition --NPO - Will consult GI spoke to Dr. Villalobos, place on Protonix drip -Transfuse 3units PRBC. Check US abdomen Heme Monitor CBC, coags- transfuse 3u PRBC , check H/H Q6 ID Monitor for signs of infections ( Fever, WBC) Place on Rocephin follow up on urine cx Endocrine: hyperglycemia of critical illness SSI q6h med scale Prophylaxis: GI Prophylaxis pepcid DVT Prophylaxis -- SCDs history of chronic subdurals, old d/c SQH given GI bleed and anemia . Lines: 2/3: right SC TLC 2/3: right IJ vascath 2/3: right radial art line 2/3: chery. Dispo: remain in ICU. Level 3 Eddie Barr MD Aug 27, 2017 07:49
[2017-08-27] MEDS: CHLORHEXIDINE 0.12% (ORAL KIT) 15 ML CUP MT SCH ×2 (08:00→20:00)
--- NOTE | 2017-08-27 08:48 | PD.CONS ---
HPI History of Present Illness This is a 82 year old male who per EMR was found with altered mental status. His roommates noticed he was altered and declining. In ER he was disoriented and found to be acidotic, continued to deteriorate and was intubated and emergently dialyzed. He is now extubated but relatively noncontributory. Per nursing staff he had large melanotic stool this morning and his hgb dropped from 11.6 to 7.3. Stool previously was noted to be brown. No other bleeding. He denies abd pain. Never had an EGD. Says he has had a colonoscopy but can provide no further details. Per EMR he had EGD and colonoscopy 08/2016 with finding esophageal lesions, lesion appendiceal orifice, lymphocytic colitis. Path esophageal lesion was ulcerative esophagitis. Path sigmoid polyp denoma. (Cecily Oh) PFSH Past Medical History (Obtained from medical records) Hypertension Hyperlipidemia BPH esophagitis lymphocytic colitis Past Surgical History Left shoulder replacement (Cecily Oh) Coded Allergies: No Known Allergies (Verified Allergy, Unknown, 08/25/17) Family History Negative for CAD/DM Social History Smokes about a pack a day. Does drink about 2 beers a day. Denies illicit drugs (Cecily Oh) Review of Systems Gastrointestinal: DENIES: Abdominal pain noncontributory (Cecily Oh) GI Exam Vitals I&O Vital Signs Date Time Temp Pulse Resp B/P (MAP) Pulse Ox O2 Delivery O2 Flow Rate FiO2 08/27/17 06:00 122 08/27/17 04:00 98.8 115 27 110/55 (73) 96 08/27/17 04:00 115 08/27/17 04:00 96 Nasal Cannula 4.00 08/27/17 02:00 135 08/27/17 00:30 124 133/65 08/27/17 00:00 99.4 122 20 123/61 (81) 97 Arterial Line 08/27/17 00:00 97 Nasal Cannula 4.00 08/27/17 00:00 122 08/26/17 23:45 123 128/58 08/26/17 22:55 133 125/58 08/26/17 22:00 133 08/26/17 21:40 99 3.00 08/26/17 20:00 98.1 121 25 131/69 (89) 97 129/55 (79) 08/26/17 20:00 97 Nasal Cannula 4.00 08/26/17 20:00 121 08/26/17 18:00 121 08/26/17 16:00 100 Nasal Cannula 2.00 08/26/17 16:00 109 08/26/17 16:00 98.8 123 25 127/65 (85) 96 120/58 (78) 08/26/17 14:00 100 Nasal Cannula 2.00 08/26/17 14:00 115 08/26/17 13:00 100 Nasal Cannula 5.00 08/26/17 12:39 98 Nasal Cannula 4 08/26/17 12:39 98 Nasal Cannula 4.00 08/26/17 12:00 98.5 119 21 165/72 (103) 98 155/78 (103) 08/26/17 12:00 40 08/26/17 12:00 97 08/26/17 11:51 95 40 08/26/17 11:14 40 08/26/17 10:00 97 I/O 08/26/17 08/26/17 08/26/17 08/27/17 08/27/17 08/27/17 07:00 15:00 23:00 07:00 15:00 23:00 Intake Total 2425 ml 400 ml 2000 ml Output Total 295 ml 400 ml 280 ml 1225 ml Balance 2130 ml 0 ml 1720 ml -1225 ml Intake IV Total 2425 ml 400 ml 2000 ml Output Urine Total 295 ml 400 ml 280 ml 1225 ml # Bowel Movements 1 Imaging Last Impressions Chest X-Ray 08/25/17 0000 Signed Impressions: Service Date/Time: Friday, August 25, 2017 07:21 - CONCLUSION: Support lines and tubes as described above. Beto Antoine MD Head CT 08/24/17 6533 Signed Impressions: Service Date/Time: Friday, August 25, 2017 00:02 - CONCLUSION: There is a hypodense subdural collection with slight left to right shift identified. The appearance suggests a chronic subdural hematoma. Duncan Odom MD Laboratory Test 08/26/17 08:40 08/26/17 12:20 08/26/17 14:10 08/26/17 21:00 Salicylates Level 10.5 MG/DL Blood Gas Puncture Site ART LINE Blood Gas Patient Temperature 98.6 Blood Gas HCO3 28 mmol/L Blood Gas Base Excess 4.1 mmol/L Blood Gas Oxygen Saturation 96 % Arterial Blood pH 7.47 Arterial Blood Partial Pressure CO2 38 mmHg Arterial Blood Partial Pressure O2 102 mmHg Arterial Blood Oxygen Content 15.0 Vol % Arterial Blood Carboxyhemoglobin 0.8 % Arterial Blood Methemoglobin 1.4 % Blood Gas Hemoglobin 11.1 G/DL Oxygen Delivery Device VENTILATOR Blood Gas Ventilator Setting CPAP 5/10PS Blood Gas Inspired Oxygen 40 % Potassium Level 3.7 MEQ/L Total Creatine Kinase 1538 U/L 1658 U/L Creatine Kinase MB 5.4 NG/ML 3.3 NG/ML Creatine Kinase MB % 0.4 % 0.2 % Free Thyroxine 0.59 NG/DL Thyroid Stimulating Hormone 3rd Gen 2.550 uIU/ML Test 08/27/17 04:30 08/27/17 06:40 White Blood Count 9.0 TH/MM3 9.1 TH/MM3 Red Blood Count 2.53 MIL/MM3 2.32 MIL/MM3 Hemoglobin 8.1 GM/DL 7.3 GM/DL Hematocrit 23.3 % 21.3 % Mean Corpuscular Volume 92.0 FL 92.1 FL Mean Corpuscular Hemoglobin 32.0 PG 31.7 PG Mean Corpuscular Hemoglobin Concent 34.7 % 34.4 % Red Cell Distribution Width 15.2 % 15.2 % Platelet Count 132 TH/MM3 121 TH/MM3 Mean Platelet Volume 7.6 FL 7.7 FL Prothrombin Time 12.7 SEC Prothromb Time International Ratio 1.3 RATIO Activated Partial Thromboplast Time 34.3 SEC Blood Urea Nitrogen 48 MG/DL Creatinine 0.68 MG/DL Random Glucose 101 MG/DL Total Protein 5.4 GM/DL Albumin 2.7 GM/DL Calcium Level 7.3 MG/DL Alkaline Phosphatase 40 U/L Aspartate Amino Transf (AST/SGOT) 63 U/L Alanine Aminotransferase (ALT/SGPT) 27 U/L Total Bilirubin 0.4 MG/DL Direct Bilirubin 0.2 MG/DL Sodium Level 142 MEQ/L Potassium Level 4.1 MEQ/L Chloride Level 109 MEQ/L Carbon Dioxide Level 27.8 MEQ/L Anion Gap 5 MEQ/L Estimat Glomerular Filtration Rate 111 ML/MIN Protein Corrected Calcium 8.2 MG/DL Indirect Bilirubin 0.2 MG/DL Total Creatine Kinase 1335 U/L Creatine Kinase MB 2.9 NG/ML Creatine Kinase MB % 0.2 % Neutrophils (%) (Auto) 78.3 % Lymphocytes (%) (Auto) 12.0 % Monocytes (%) (Auto) 9.3 % Eosinophils (%) (Auto) 0.1 % Basophils (%) (Auto) 0.3 % Neutrophils # (Auto) 7.1 TH/MM3 Lymphocytes # (Auto) 1.1 TH/MM3 Monocytes # (Auto) 0.8 TH/MM3 Eosinophils # (Auto) 0.0 TH/MM3 Basophils # (Auto) 0.0 TH/MM3 CBC Comment DIFF FINAL Differential Comment Date/Time Source Procedure Growth Status 08/25/17 14:30 Urine Clean Catch Urine Culture - Preliminary NO GROWTH IN 24 HOURS. Resulted Physical Examination HEENT: PERRL; normocephalic; atraumatic; no jaundice. absent right nare CHEST: coarse CARDIAC: irregular HR ABDOMEN: Soft, mildly distended, nontender; no hepatosplenomegaly; bowel sounds soft EXTREMITIES: No clubbing, cyanosis, or edema. SKIN: Normal; no rash; no jaundice. ecchymoses [facility] [employer]: lethargic but oriented x 3 (Cecily Oh) Assessment and Plan Plan ASSESSMENT - anemia with drop in hgb and large melanotic stool - black stool this am. UGIB. salicylate overdose. blood pending, US abd pending EGD and colonoscopy 08/2016 with finding esophageal lesions, lesion appendiceal orifice, lymphocytic colitis. Path esophageal lesion was ulcerative esophagitis. Path sigmoid polyp adenoma. - AF w/ RVR, JONAH, rhabdomyolysis, salicylate overdose per [facility] - EGD today - NPO now - Obtain consent - stat bedside abd US to r/o internal bleeding - blood transfusion pending - monitor labs - supportive care - further recs to follow pt seen by myself and Dr Villalobos and this note is written on her behalf (Cecily Oh) Physician Comments seen, examined agree with above patient was seen by me and anesthesia, refusing to sign consent-states he is and he will not sign he is awake, alert, oriented times 3 will need psych eval supportive care call gi if agrees (Carmen Villalobos MD) Cecily Oh Aug 27, 2017 08:48 Carmen Villalobos MD Aug 27, 2017 11:32
[2017-08-27] MEDS ORDERED: PANTOPRAZOLE INJ 80 MG in SODIUM CHLORIDE 0.9% INJ 35 ML IV ONE (09:04)
[2017-08-27] MEDS: PANTOPRAZOLE INJ 80 MG in SODIUM CHLORIDE 0.9% INJ 100 ML IV SCH ×2 (09:06→18:25)
[2017-08-27] MEDS: SODIUM CHLORIDE 0.9% FLUSH 10 ML FLUSH IV FLUSH PRN (10:02)
[2017-08-27] MEDS: cefTRIAXone INJ 1,000 MG in SODIUM CHLORIDE 0.9% INJ 100 ML IV SCH (10:02)
[2017-08-27] MEDS: SODIUM CHLORIDE 0.9% FLUSH 10 ML FLUSH IV FLUSH SCH ×2 (10:02→20:35)
--- NOTE | 2017-08-27 10:05 | RADRPT ---
EXAM DATE/TIME: 08/27/2017 09:20 [place] COMPARISON: No previous studies available for comparison. INDICATIONS : Abdominal pain. MEDICAL HISTORY : Hypercholesterolemia. Benign prostatic hyperplasia, (BPH) Afib. Abdominal pain. Melanoma. Insomnia. Tobacco use. SURGICAL HISTORY : Eye surgery. Right nare removal. Pins to left sholder. ENCOUNTER: Initial ACUITY: 1 day PAIN SCORE: 6/10 LOCATION: Abdomen. MEASUREMENTS: LIVER: 15.1 cm length COMMON DUCT: 4 mm RIGHT KIDNEY: 12.4 x 4.3 x 5.8 cm LEFT KIDNEY: 11.7 x 5.4 x 5.3 cm SPLEEN: 9.8 cm length AORTA: 2.3cm maximal FINDINGS: The visualized portion of the pancreas is unremarkable though the entire gland is not visualized seco ndary to overlying bowel gas. The spleen is normal in size and free of focal defects. The kidneys are normal bilaterally without evidence of mass or hydronephrosis. There is gallbladder wall thickening without cholelithiasis and no pericholecystic fluid. Cholecystitis is not excluded. Trace ascites is present in the right upper quadrant. CONCLUSION: Gallbladder wall thickening without stones. Cholecystitis is not excluded. Radionuclide imaging is re commended for further evaluation if clinically indicated. Marco Lloyd MD on August 27, 2017 at 9:58 Board Certified Radiologist. This report was verified electronically.
[2017-08-27] MEDS: DEXT 5%-NACL 0.9% 1000 ML INJ 1,000 ML IV SCH ×2 (10:38→23:40)
[2017-08-27] MEDS: DILTIAZEM 125 MG/NS 100 ML IV PRN ×2 (10:58)
[2017-08-27 15:34] LABS: HEPATITIS A AB IGM NEGATIVE (NEGATIVE); HEPATITIS B CORE AB IGM NEGATIVE (NEGATIVE); HEPATITIS B SURFACE ANTIGEN NEGATIVE (NEGATIVE); HEPATITIS C AB IgG NEGATIVE (NEGATIVE)
[2017-08-27 18:41] LABS: BASOPHIL % 0.2 % (0.0-2.0); EOSINOPHIL % 0.1 % (0.0-4.0); HEMATOCRIT 25.5 % (39.0-51.0); HEMOGLOBIN 8.8 GM/DL (13.0-17.0); LYMPH % 13.5 % (9.0-44.0); LYMPHOCYTE # 1.4 TH/MM3 (1.0-4.8); MEAN CELL VOLUME 90.6 FL (80.0-100.0); MEAN CORPUSCULAR HEMOGLOBIN 31.4 PG (27.0-34.0); MEAN CORPUSCULAR HGB CONC 34.6 % (32.0-36.0); MONOCYTE # 0.8 TH/MM3 (0-0.9); NEUT % 78.2 % (16.0-70.0); PLATELET COUNT 116 TH/MM3 (150-450); RED BLOOD COUNT 2.81 MIL/MM3 (4.50-5.90); RED CELL DISTRIBUTION WIDTH 15.4 % (11.6-17.2); WHITE BLOOD COUNT 10.2 TH/MM3 (4.0-11.0)
[2017-08-27] MEDS: DILTIAZEM HCL 60 MG TAB PO SCH ×2 (19:07→23:40)
[2017-08-27 22:30] LABS: HEMATOCRIT 24.4 % (39.0-51.0); HEMOGLOBIN 8.5 GM/DL (13.0-17.0)
[2017-08-27] MEDS: MORPHINE SULFATE 4 MG/ML INJ IV PUSH PRN (23:45)
[2017-08-28] VITALS (21 sets, daily range): BP systolic 104–152; BP diastolic 60–88; PULSE 88–144; RESP 12–36; TEMP 98–99.7; O2SAT 89–97
[2017-08-28] MEDS: CHLORHEXIDINE GLUCONATE 2 % 1 PACK (2 CLOTHS)(taper/protocol) TOPICAL SCH (02:54)
[2017-08-28] MEDS: RESP: ALBUTEROL 2.5 MG/IPRATROPIUM 0.5 MG NEB (SCH) INH ×4 (03:29→19:49)
[2017-08-28] MEDS: PANTOPRAZOLE INJ 80 MG in SODIUM CHLORIDE 0.9% INJ 100 ML IV SCH ×2 (04:28→16:25)
[2017-08-28] MEDS: DILTIAZEM HCL 60 MG TAB PO SCH ×3 (05:15→18:33)
[2017-08-28 05:25] LABS: AUTOMATED NEUTROPHIL # 9.6 TH/MM3 (1.8-7.7); BASOPHIL # 0.3 TH/MM3 (0-0.2); BASOPHIL % 2.8 % (0.0-2.0); EOSINOPHIL % 0.4 % (0.0-4.0); HEMATOCRIT 24.2 % (39.0-51.0); HEMOGLOBIN 8.4 GM/DL (13.0-17.0); LYMPH % 6.5 % (9.0-44.0); LYMPHOCYTE # 0.7 TH/MM3 (1.0-4.8); MEAN CELL VOLUME 90.9 FL (80.0-100.0); MEAN CORPUSCULAR HEMOGLOBIN 31.4 PG (27.0-34.0); MEAN CORPUSCULAR HGB CONC 34.5 % (32.0-36.0); MEAN PLATELET VOLUME 7.9 FL (7.0-11.0); MONO % 4.9 % (0.0-8.0); MONOCYTE # 0.6 TH/MM3 (0-0.9); NEUT % 85.4 % (16.0-70.0); PLATELET COUNT 112 TH/MM3 (150-450); RED BLOOD COUNT 2.67 MIL/MM3 (4.50-5.90); RED CELL DISTRIBUTION WIDTH 14.9 % (11.6-17.2); WHITE BLOOD COUNT 11.3 TH/MM3 (4.0-11.0)
[2017-08-28 05:30] LABS: ALBUMIN 2.7 GM/DL (3.4-5.0); AST (GOT) 42 U/L (15-37); BICARBONATE 26.8 MEQ/L (21.0-32.0); BLOOD UREA NITROGEN 43 MG/DL (7-18); CHLORIDE 116 MEQ/L (98-107); CREATININE 0.79 MG/DL (0.60-1.30); GLOMERULAR FILTRATION RATE 94 ML/MIN (>89); GLUCOSE,RANDOM 116 MG/DL (74-106); MAGNESIUM 2.2 MG/DL (1.5-2.5); SODIUM (NA) 147 MEQ/L (136-145)
[2017-08-28 05:32] LABS: ALT (GPT) 22 U/L (12-78); PHOSPHORUS 1.6 MG/DL (2.5-4.9)
[2017-08-28] MEDS: INSULIN NovoLIN REGULAR SUPPLEMENTAL SCALE SQ SCH ×3 (05:32→17:03)
[2017-08-28 05:33] LABS: PROTHROMBIN TIME - PATIENT 10.6 SEC (9.8-11.6)
[2017-08-28 05:34] LABS: ALKALINE PHOSPHATASE 45 U/L (45-117); TOTAL BILIRUBIN ADULT 0.6 MG/DL (0.2-1.0); TOTAL PROTEIN 5.5 GM/DL (6.4-8.2)
[2017-08-28] MEDS: MORPHINE SULFATE 4 MG/ML INJ IV PUSH PRN ×2 (07:16→11:58)
[2017-08-28] MEDS: CHLORHEXIDINE 0.12% (ORAL KIT) 15 ML CUP MT SCH ×2 (08:00→20:00)
[2017-08-28] MEDS: SODIUM CHLORIDE 0.9% FLUSH 10 ML FLUSH IV FLUSH SCH ×2 (08:45→20:06)
[2017-08-28] MEDS: cefTRIAXone INJ 1,000 MG in SODIUM CHLORIDE 0.9% INJ 100 ML IV SCH (08:45)
[2017-08-28] MEDS: POTASSIUM PHOSPHATE INJ 30 MMOL in SODIUM CHLOR 0.9% 250 ML INJ 250 ML IV PRN (08:51)
[2017-08-28] MEDS ORDERED: FUROSEMIDE 40 MG/4 ML VIAL IV PUSH ONE (10:00)
--- NOTE | 2017-08-28 10:01 | HHI.CCPN ---
Subjective Remarks/Hospital Course Hospital Course: This is an 82-year-old male with a past medical history of hypertension and hyperlipidemia who was brought to the emergency department after being found altered. Per hospital records, the patient had been declining for the last 2-3 days. He was brought in the emergency department where he was only oriented to self. He continued to decline and became unresponsive. ABG is significant for severe combined acidosis: 7.13/52/78. salicylate level is 72.6, ck 1200, Cr 1.1 , wbc 12.4. I was called by Dr. Yanes about emergent transfer to the ICU. the patient came into the ICU during my conversation and I immediately evaluated the patient who at this point was unresponsive and agonal. I emergently intubated the patient (see separate procedure note for details). I then placed central line and dialysis catheter emergently, as well as arterial line for serial ABGs. I discussed the case then with Dr. Nagel who agrees with emergent dialysis. Subjective: 08/26: salicylate level still elevated, although downtrending. CKs still elevated and uptrended throughout the day. uop marginal at best. more awake than yesterday. discussed with poison control, ok to stop trending salicylate levels. 08/27 Patient is on 4L oxygen. Had large black tarry stool BM this morning Hgb dropped 7.3 from 11.6 yesterday. Afebrile. On Cardizem drip 10mg/hr. ASA level 10.5 this morning. 08/28 Patient is lying in bed in NAD. s/p transfusion 2u PRBC yesterday Hgb 8.4 this morning. Refused EGD yesterday. Off Cardizem drip. Objective Vital Signs Date Time Temp Pulse Resp B/P (MAP) Pulse Ox O2 Delivery O2 Flow Rate FiO2 08/28/17 09:22 94 Nasal Cannula 4.00 08/28/17 08:04 12 08/28/17 06:00 120 08/28/17 04:00 98.9 152/65 (94) 08/26/17 12:00 40 Intake and Output 08/28/17 08/28/17 08/28/17 07:59 15:59 23:59 Intake Total 619 ml Output Total 800 ml Balance -181 ml Result Diagram: 08/28/17 0430 08/28/17 0430 Other Results Laboratory Tests Test 08/27/17 17:55 08/27/17 22:00 08/28/17 04:30 White Blood Count 10.2 TH/MM3 11.3 TH/MM3 Red Blood Count 2.81 MIL/MM3 2.67 MIL/MM3 Hemoglobin 8.8 GM/DL 8.5 GM/DL 8.4 GM/DL Hematocrit 25.5 % 24.4 % 24.2 % Mean Corpuscular Volume 90.6 FL 90.9 FL Mean Corpuscular Hemoglobin 31.4 PG 31.4 PG Mean Corpuscular Hemoglobin Concent 34.6 % 34.5 % Red Cell Distribution Width 15.4 % 14.9 % Platelet Count 116 TH/MM3 112 TH/MM3 Mean Platelet Volume 8.0 FL 7.9 FL Neutrophils (%) (Auto) 78.2 % 85.4 % Lymphocytes (%) (Auto) 13.5 % 6.5 % Monocytes (%) (Auto) 8.0 % 4.9 % Eosinophils (%) (Auto) 0.1 % 0.4 % Basophils (%) (Auto) 0.2 % 2.8 % Neutrophils # (Auto) 8.0 TH/MM3 9.6 TH/MM3 Lymphocytes # (Auto) 1.4 TH/MM3 0.7 TH/MM3 Monocytes # (Auto) 0.8 TH/MM3 0.6 TH/MM3 Eosinophils # (Auto) 0.0 TH/MM3 0.0 TH/MM3 Basophils # (Auto) 0.0 TH/MM3 0.3 TH/MM3 CBC Comment DIFF FINAL AUTO DIFF Differential Comment AUTO DIFF CONFIRMED Platelet Estimate LOW Platelet Morphology Comment NORMAL Prothrombin Time 10.6 SEC Prothromb Time International Ratio 1.0 RATIO Activated Partial Thromboplast Time 26.8 SEC Blood Urea Nitrogen 43 MG/DL Creatinine 0.79 MG/DL Random Glucose 116 MG/DL Total Protein 5.5 GM/DL Albumin 2.7 GM/DL Calcium Level 8.0 MG/DL Phosphorus Level 1.6 MG/DL Magnesium Level 2.2 MG/DL Alkaline Phosphatase 45 U/L Aspartate Amino Transf (AST/SGOT) 42 U/L Alanine Aminotransferase (ALT/SGPT) 22 U/L Total Bilirubin 0.6 MG/DL Sodium Level 147 MEQ/L Potassium Level 3.6 MEQ/L Chloride Level 116 MEQ/L Carbon Dioxide Level 26.8 MEQ/L Anion Gap 4 MEQ/L Estimat Glomerular Filtration Rate 94 ML/MIN Imaging Last Impressions Abdomen Ultrasound 08/27/17 0000 Signed Impressions: Service Date/Time: Sunday, August 27, 2017 09:20 - CONCLUSION: Gallbladder wall thickening without stones. Cholecystitis is not excluded. Radionuclide imaging is recommended for further evaluation if clinically indicated. Marco Lloyd MD Chest X-Ray 08/25/17 0000 Signed Impressions: Service Date/Time: Friday, August 25, 2017 07:21 - CONCLUSION: Support lines and tubes as described above. Beto Antoine MD Head CT 08/24/17 2349 Signed Impressions: Service Date/Time: Friday, August 25, 2017 00:02 - CONCLUSION: There is a hypodense subdural collection with slight left to right shift identified. The appearance suggests a chronic subdural hematoma. Duncan Odom MD Objective Remarks GENERAL: Elderly frail cachectic male, lying in bed in NAD HEENT: Normocephalic. Atraumatic. Pupils equal, round, reactive, conjugate. Mucous membranes are still dry. NECK: Trachea is midline. There is no JVD. CHEST: PRVC, 40% fio2, clear bilaterally. CARDIOVASCULAR: Tachycardic rate, irregularly irregular rhythm. afib by tele. ABDOMEN: Soft, scaphoid nontender, nondistended. No guarding. MUSCULOSKELETAL: Pulses 2+. No peripheral edema. NEUROLOGICAL: Awake A/P Assessment and Plan Plan by systems: Neurologic: Toxic encephalopathy- resolved - salicylate subtherapeutic now. 10.5 yesterday -s/p emergent dialysis 2/3 - neuro checks -Psych consulted for evaluation depression Respiratory: Acute hypoxic and hypercarbic respiratory failure- Extubated 2/4 Continue with oxygen keep sat >92% Bronchodilators, Cardiovascular: Atrial fibrillation with rapid ventricular response Wean off Cardizem drip monitor HR and BP keep MAP>65mmHG Check 2D echo to eval LV function Renal: Acute kidney injury-imprving Acute rhabdomyolysis -Monitor renal function, I/O's, electrolytes replacement per protocol. -s/p Emergent dialysis 2/3 IVF D5NS1/2@42ml/hr , diurese with Lasix 40mg x1 . FEN/GI: GI bleed Anemia 2nd acute blood loss Severe acute protein calorie malnutrition --NPO - GI is following Dr. Villalobos, on Protonix drip -s/p Transfusion 2units PRBC. US abdomen: Gallbladder wall thickening without stones Heme Monitor CBC, coags-s/p transfusion 2u PRBC 2/5 ID Monitor for signs of infections ( Fever, WBC) on Rocephin follow up on urine cx Endocrine: hyperglycemia of critical illness SSI q6h med scale Prophylaxis: GI Prophylaxis pepcid DVT Prophylaxis -- SCDs history of chronic subdurals, old d/c SQH given GI bleed and anemia . Lines: 2/3: right SC TLC 2/3: right IJ vascath 2/3: right radial art line 2/3: chery. Dispo: remain in ICU. Palliative care eval to asses with goals of care Level 2 Eddie Barr MD Aug 28, 2017 10:01
[2017-08-28] MEDS: DEXT 5%-NACL 0.45% 1000 ML INJ 1,000 ML IV SCH (11:59)
[2017-08-28] MEDS ORDERED: PROPOFOL 200 MG/20 ML AMP IV ONE (12:00)
--- NOTE | 2017-08-28 12:18 | PD.CONS ---
Consult Service Palliative Care Consult Requested By Dr. Olson . Primary Care Physician Unknown . Reason for Consultation a. To assist with evaluation and management of symptoms including: Encephalopathy, delusions, pain b. To assist medical decision maker(s) with: better understanding of current medical conditions; weighing benefits/burdens of medical treatment options; making medical treatment decisions. . HPI History of Present Illness This 82-year-old male, with a past history of atrial fibrillation, CAD, ulcerative esophagitis, and colitis, reportedly complained of headache for at least a couple weeks and was taking Excedrin. He developed altered mental status for at least a couple days, and then was found nearly unresponsive by his roommates and arrived at the hospital via ambulance on 08/25/17. He was lethargic, but when disturbed was agitated and violent. 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 Alkalinization was begun immediately, the patient was INTUBATED for airway protection, and he then underwent emergent dialysis later that day of admission. He remained quite encephalopathic and lethargic, and then developed melanotic stool on 08/27/17; his hemoglobin decreased to 7.3 on that date, necessitating transfusions. An abdominal ultrasound revealed thickened gallbladder wall but no stones, and the patient refused EGD. Although the patient seemed more awake over the past 24 hours, he remains delusional, repeatedly saying that he is "already ," and that his was confirmed "in the newspaper 2 days ago." On 08/28/17, his hemoglobin was 8.4 (after receiving 2 units of packed cells), and serum albumin is 2.7. Palliative Care was consulted to assist with symptom management, and to enter into discussions with the patient/family regarding his current illnesses and problems, the prognosis, and the benefits and burdens of the various treatment choices. . Function/Cognitive Trajectory The patient lives with 2 roommates, and was reportedly functioning fairly independently until the couple or few days prior to this hospitalization. . Review of Systems ROS Limitations: Altered Mental Status (some history per patient, other history per medical record) Constitutional: COMPLAINS OF: Fatigue Endocrine: DENIES: Polyuria Eyes: DENIES: Eye inflammation Ears, nose, mouth, throat: DENIES: Epistaxis Respiratory: DENIES: Shortness of breath Cardiovascular: DENIES: Chest pain (has not complained of chest pain) Gastrointestinal: COMPLAINS OF: Black stools (began on 08/27/17), Diarrhea ( several episodes since admission) Genitourinary: DENIES: Hematuria Musculoskeletal: DENIES: Joint Swelling Integumentary: DENIES: Rash Hematologic/Lymphatics: DENIES: Bruising Immunologic/Allergic: DENIES: Urticaria Neurologic: DENIES: Localized weakness, Seizures Psychiatric: COMPLAINS OF: Agitation, Delusions Past Family Social History Coded Allergies: No Known Allergies (Verified Allergy, Unknown, 08/25/17) Past Medical History * Chronic atrial fibrillation, had been on Coumadin in the past * Hypertension * Chronic headache * History of CAD * Colon polyps and colitis on biopsy August 2016 * Severe ulcerative esophagitis August 2016 * Hyperlipidemia * BPH * GERD . Past Surgical History * Left shoulder replacement * Unspecified type of eye surgery * Colonoscopy with biopsy August 2016 * EGD with biopsy August 2016 . Reported Medications Reported Meds & Active Scripts -- but the patient was reportedly taking any of these in the days prior to hospitalization Active Bentyl (Dicyclomine HCl) 10 Mg Cap 10 Mg PO TID PRN Sucralfate Liq (Sucralfate) 1 Gm/10 Ml Krystle 1 Gm PO ACHS 30 Days Norvasc (Amlodipine Besylate) 5 Mg Tab 5 Mg PO DAILY 30 Days Reported Doxazosin (Doxazosin Mesylate) 4 Mg Tab 4 Mg PO DAILY Trazodone (Trazodone HCl) 50 Mg Tab 50 Mg PO TID Omeprazole 20 Mg Tab 20 Mg PO DAILY Tamsulosin (Tamsulosin HCl) 0.4 Mg Cap 0.4 Mg PO HS Lovastatin 20 Mg Tab 20 Mg PO DAILY . Current Medications Medications (Trade) Dose Ordered Sig/Ortega Route Start Time Stop Time Status Last Admin (NS Flush) 2 ml UNSCH PRN IV FLUSH 08/25/17 03:15 08/27/17 10:02 (NS Flush) 2 ml BID IV FLUSH 08/25/17 09:00 08/28/17 08:45 (Tylenol) 650 mg Q4H PRN PO 08/25/17 03:15 08/27/17 21:21 (Zofran Inj) 4 mg Q6H PRN IVP 08/25/17 03:15 (Narcan Inj) 0.4 mg UNSCH PRN IV PUSH 08/25/17 03:15 (Milk Of Magnesia Liq) 30 ml Q12H PRN PO 08/25/17 03:15 (Senokot) 17.2 mg Q12H PRN PO 08/25/17 03:15 (Dulcolax Supp) 10 mg DAILY PRN RECTAL 08/25/17 03:15 (Lactulose Liq) 30 ml DAILY PRN PO 08/25/17 03:15 Miscellaneous Information Patient in critical care unit? Ass... [id number] .XX 08/25/17 07:15 08/25/17 07:15 (Chlorhexidine 2% Cloth) 3 pack DAILY@04 TOPICAL 08/26/17 04:00 08/30/17 04:01 08/28/17 02:54 (Chlorhexidine 2% Cloth) 3 pack UNSCH PRN TOPICAL 08/25/17 07:15 08/30/17 07:14 (Peridex 0.12% Liq) 15 ml BID@08,20 MT 08/25/17 08:00 08/26/17 08:00 Potassium Chloride 100 ml @ 50 mls/hr Q2H PRN IV 08/25/17 07:45 08/26/17 06:21 Potassium Chloride 100 ml @ 50 mls/hr Q2H PRN IV 08/25/17 07:45 (K-Lyte Cl Eff) 50 meq UNSCH PRN PO 08/25/17 07:45 Potassium Chloride 100 ml @ 25 mls/hr UNSCH PRN IV 08/25/17 07:45 Potassium Chloride 100 ml @ 50 mls/hr Q2H PRN IV 08/25/17 07:45 Magnesium Sulfate 4 gm/Sodium Chloride 100 ml @ 50 mls/hr UNSCH PRN IV 08/25/17 07:45 (Mag-Ox) 800 mg UNSCH PRN PO 08/25/17 07:45 Magnesium Sulfate 2 gm/Sodium Chloride 100 ml @ 50 mls/hr UNSCH PRN IV 08/25/17 07:45 (K-Phos) 2,000 mg Q4H PRN PO 08/25/17 07:45 Sodium Phosphate 30 mmol/Sodium Chloride 250 ml @ 42 mls/hr UNSCH PRN IV 08/25/17 07:45 (K-Phos) 2,000 mg UNSCH PRN PO/TUBE 08/25/17 07:45 Potassium Phosphate 30 mmol/ Sodium Chloride 260 ml @ 42 mls/hr UNSCH PRN IV 08/25/17 07:45 08/28/17 08:51 (D50w (Vial) Inj) 25 ml UNSCH PRN IV PUSH 08/25/17 07:45 (NovoLIN R SUPPLEMENTAL SCALE) 1 Q6HR SQ 08/25/17 12:00 (Duoneb Neb) 1 ampule Q6HR NEB INH 08/25/17 10:00 08/28/17 09:20 (Duoneb Neb) 1 ampule Q2HR NEB PRN INH 08/25/17 07:45 Sodium Chloride 1,000 ml @ 0 mls/hr TITRATE PRN OTHER 08/25/17 10:30 08/25/17 12:00 (Heparin Inj) 8,000 units UNSCH PRN IV FLUSH 08/25/17 10:30 Sodium Chloride 1,000 ml @ 200 mls/hr Q5H PRN OTHER 08/25/17 10:30 Sodium Chloride 200 ml @ 0 mls/hr UNSCH PRN IV 08/25/17 10:30 (Mannitol Inj) 12.5 gm UNSCH PRN IV PUSH 08/25/17 10:30 Albumin Human 100 ml @ 60 mls/hr UNSCH PRN IV 08/25/17 10:30 08/25/17 10:00 (NS Flush) 5 ml UNSCH PRN IV FLUSH 08/25/17 10:30 (Heparin Inj) Dwell Heparin to f... UNSCH PRN OTHER 08/25/17 10:30 08/25/17 12:00 (Gentamicin Inj) 10 mg UNSCH PRN OTHER 08/25/17 10:30 08/25/17 12:00 (Gelfoam 12 Mm/7 Mm Top) 1 foam UNSCH PRN TOPICAL 08/25/17 10:30 (Zofran Inj) 4 mg UNSCH PRN IV PUSH 08/25/17 10:30 (Benadryl) 25 mg UNSCH PRN PO 08/25/17 10:30 (Nitrostat Sl) 0.4 mg UNSCH PRN SL 08/25/17 10:30 (Catapres) 0.1 mg UNSCH PRN PO 08/25/17 10:30 Pantoprazole Sodium 80 mg/ Sodium Chloride 100 ml @ 10 mls/hr Q10H IV 08/27/17 09:04 08/28/17 04:28 Ceftriaxone Sodium 1000 mg/ Sodium Chloride 100 ml @ 200 mls/hr Q24H IV 08/27/17 09:00 08/28/17 08:45 (Cardizem) 60 mg Q6HR PO 08/27/17 19:00 08/28/17 05:15 (Morphine Inj) 2 mg Q3H PRN IV PUSH 08/27/17 23:15 08/28/17 07:16 Dextrose/Sodium Chloride 1,000 ml @ 42 mls/hr [id number] IV 08/28/17 10:00 Family History Negative for CAD/DM. One son reportedly has bladder cancer. . Substance Use Tobacco: Smokes more than one pack per day for most of his life Alcohol: Admitted to "a 6 pack" of beer daily Prescription med abuse: None Illicits: None reported . Psychosocial History The patient reports he was born and raised in [place], but moved to this area about 50 years ago. He currently lives with 2 roommates. 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 He says he was 3 times and . He reports that he has 3 sons: Franklyn, Trent, and Ross . Spiritual/Cultural Factors The patient has a Jew background, and says he would be willing to speak with a quality liaison who had a similar background. . Living Will: Never completed Health Care Surrogate: Never completed Durable Power of Planimeter Operator: Never completed Today's verbally stated goals: The patient's delusion regarding already being consumes much of his conversation, but discussion about goals results in comments from him like, "I' m already , stop doing all this to me," and "I don't want any of this hospital shit being done to me, why don't she just stop doing it?" . Ethical and Legal Issues There are no ethical issues that would impact his care or decision-making at this time. I don't believe the patient has capacity to make decisions at this time, as he is not oriented to day, date, month, or place, and he remains delusional regarding his own . He reports that he has 3 sons and no healthcare surrogate designation, so we are trying to continue to reach the sons who would be decision making proxies. . Physical Exam Vital Signs Date Time Temp Pulse Resp B/P (MAP) Pulse Ox O2 Delivery O2 Flow Rate FiO2 08/28/17 09:22 94 Nasal Cannula 4.00 08/28/17 08:04 12 08/28/17 06:00 120 08/28/17 04:00 111 08/28/17 04:00 98.9 111 26 152/65 (94) 94 08/28/17 04:00 94 Nasal Cannula 4.00 08/28/17 02:00 88 08/28/17 00:00 107 08/28/17 00:00 97 Nasal Cannula 4.00 08/28/17 00:00 99.7 107 23 134/60 (84) 97 08/27/17 22:00 112 08/27/17 20:46 87 119/58 08/27/17 20:00 90 08/27/17 20:00 95 Nasal Cannula 4.00 08/27/17 20:00 97.8 106 19 133/69 (90) 95 08/27/17 19:30 122 144/63 08/27/17 19:03 94 Nasal Cannula 4.00 08/27/17 19:00 109 134/72 08/27/17 18:00 108 08/27/17 18:00 108 154/69 08/27/17 17:15 96 19 147/67 98 08/27/17 17:00 118 19 148/63 97 08/27/17 16:45 113 20 151/72 96 08/27/17 16:30 122 28 160/69 97 08/27/17 16:15 100 25 136/61 97 08/27/17 16:00 123 31 151/69 08/27/17 16:00 97.4 123 24 151/69 (96) 96 08/27/17 16:00 123 08/27/17 16:00 97 Nasal Cannula 4.00 08/27/17 16:00 123 151/69 08/27/17 15:45 125 32 133/72 08/27/17 15:30 114 22 135/63 08/27/17 15:13 125 19 133/73 98 08/27/17 15:00 122 21 133/73 08/27/17 14:30 129 21 105/61 08/27/17 14:15 137 29 105/56 08/27/17 14:00 130 30 119/55 93 08/27/17 14:00 130 08/27/17 14:00 130 119/55 08/27/17 13:45 145 23 157/92 96 08/27/17 13:30 116 26 116/59 96 08/27/17 13:17 119 27 116/73 96 08/27/17 12:59 97.2 08/27/17 12:59 127 24 130/75 98 08/27/17 12:00 97 Nasal Cannula 4.00 08/27/17 12:00 101 08/27/17 12:00 97.8 101 23 114/71 (85) 97 08/27/17 12:00 101 114/71 Exam CONSTITUTIONAL/GENERAL: This is a disheveled, elderly, weak patient, in no apparent distress. Intermittent agitation, persistent delusion. Asleep initially but awakens easily. TUBES/LINES/DRAINS: SCDs, Ansari, dialysis catheter, right subclavian line SKIN: No jaundice, rashes, or lesions. Ecchymoses on upper extremities. No wounds seen anteriorly. Skin temperature appropriate. Not diaphoretic. HEAD: Atraumatic. Normocephalic. EYES: Pupils equal and round and reactive. Extraocular motions intact. No scleral icterus. No injection or drainage. Fundi not examined. ENT: Hearing grossly normal. Nose without bleeding or purulent drainage. Throat without visible erythema, exudates, masses, or lesions. NECK: Trachea midline. Supple, nontender. No palpable thyroid enlargement or nodularity. CARDIOVASCULAR: Irregular rhythm without murmurs, gallops, or rubs. No JVD. Peripheral pulses diminished. RESPIRATORY/CHEST: Symmetric, unlabored respirations. Scattered rhonchi. GASTROINTESTINAL: Abdomen soft, non-tender, nondistended. No hepato-splenomegaly , or palpable masses. No guarding. Bowel sounds present. GENITOURINARY: Without palpable bladder distension. Ansari catheter in place. MUSCULOSKELETAL: Extremities without clubbing, cyanosis, or edema. No joint tenderness or effusion noted. No calf tenderness. No mottling or clubbing. LYMPHATICS: No palpable cervical or supraclavicular adenopathy. NEUROLOGICAL: Falls asleep when left undisturbed, but has clear speech when awake. Awakens easily, moves all 4 extremities. PSYCHIATRIC: No obvious anxiety/depression. No apparent hallucinations, but has a consistent/fixed delusion about his own . Diagnostic Tests Laboratory Laboratory Tests Test 08/25/17 12:30 08/25/17 14:24 08/25/17 14:25 08/25/17 14:30 Blood Urea Nitrogen 18 MG/DL (7-18) Creatinine 0.63 MG/DL (0.60-1.30) Random Glucose 134 MG/DL (74-106) Calcium Level 8.6 MG/DL (8.5-10.1) Phosphorus Level 0.9 MG/DL (2.5-4.9) Magnesium Level 2.2 MG/DL (1.5-2.5) Sodium Level 138 MEQ/L (136-145) Potassium Level 2.6 MEQ/L (3.5-5.1) Chloride Level 101 MEQ/L (98-107) Carbon Dioxide Level 29.7 MEQ/L (21.0-32.0) Anion Gap 7 MEQ/L (5-15) Estimat Glomerular Filtration Rate 122 ML/MIN (>89) Salicylates Level 32.7 MG/DL (2.8-20.0) 31.9 MG/DL (2.8-20.0) Blood Gas Puncture Site ART LINE Blood Gas Patient Temperature 98.6 Blood Gas HCO3 28 mmol/L (22-26) Blood Gas Base Excess 6.3 mmol/L (-2-2) Blood Gas Oxygen Saturation 94 % (90-100) Arterial Blood pH 7.63 (7.380-7.420) Arterial Blood Partial Pressure CO2 26 mmHg (38-42) Arterial Blood Partial Pressure O2 66 mmHg (61-120) Arterial Blood Oxygen Content 15.9 Vol % (12.0-20.0) Arterial Blood Carboxyhemoglobin 1.2 % (0-4) Arterial Blood Methemoglobin 1.2 % (0-2) Blood Gas Hemoglobin 12.0 G/DL (12.0-16.0) Oxygen Delivery Device VENTILATOR Blood Gas Ventilator Setting A/C 600/26/5PEEP Blood Gas Inspired Oxygen 40 % Total Creatine Kinase 2201 U/L (39-308) Creatine Kinase MB 20.3 NG/ML (0.5-3.6) Creatine Kinase MB % 0.9 % (0.0-4.0) Urine Color SHAZIA (YELLW/STRAW) Urine Turbidity CLOUDY (CLEAR) Urine pH 5.5 (5.0-8.5) Urine Specific [place] 1.025 (1.002-1.035) Urine Protein 100 mg/dL (NEG-TRACE) Urine Glucose (UA) NEG mg/dL (NEG) Urine Ketones 10 mg/dL (NEG) Urine Occult Blood LARGE (NEG) Urine Nitrite NEG (NEG) Urine Bilirubin NEG (NEG) Urine Urobilinogen LESS THAN 2.0 MG/DL (LESS Urine Leukocyte Esterase LARGE (NEG) Urine RBC /hpf (0-3) Urine WBC 36 /hpf (0-5) Urine WBC Clumps FEW (NONE) Urine Squamous Epithelial Cells 1 /hpf (0-5) Urine Calcium Oxalate Crystals FEW /hpf (NONE) Urine Bacteria FEW /hpf (NONE) Urine Hyaline Casts 21 /lpf (RARE) Urine Mucus FEW /lpf (OCC) Microscopic Urinalysis Comment CULTURE INDICATED Test 08/25/17 16:20 08/25/17 18:35 08/25/17 21:00 08/25/17 23:00 Salicylates Level 30.2 MG/DL (2.8-20.0) 27.4 MG/DL (2.8-20.0) 25.1 MG/DL (2.8-20.0) 21.9 MG/DL (2.8-20.0) Potassium Level 3.0 MEQ/L (3.5-5.1) Total Creatine Kinase 2800 U/L (39-308) Creatine Kinase MB 16.0 NG/ML (0.5-3.6) Creatine Kinase MB % 0.6 % (0.0-4.0) Test 08/26/17 01:15 08/26/17 02:30 08/26/17 03:00 08/26/17 05:00 Potassium Level 3.5 MEQ/L (3.5-5.1) 3.0 MEQ/L (3.5-5.1) Total Creatine Kinase 2782 U/L (39-308) Creatine Kinase MB 14.1 NG/ML (0.5-3.6) Creatine Kinase MB % 0.5 % (0.0-4.0) Salicylates Level 22.1 MG/DL (2.8-20.0) 16.7 MG/DL (2.8-20.0) 14.0 MG/DL (2.8-20.0) Urine pH 8.5 (5.0-8.5) White Blood Count 9.7 TH/MM3 (4.0-11.0) Red Blood Count 3.67 MIL/MM3 (4.50-5.90) Hemoglobin 11.6 GM/DL (13.0-17.0) Hematocrit 33.1 % (39.0-51.0) Mean Corpuscular Volume 90.2 FL (80.0-100.0) Mean Corpuscular Hemoglobin 31.6 PG (27.0-34.0) Mean Corpuscular Hemoglobin Concent 35.1 % (32.0-36.0) Red Cell Distribution Width 15.2 % (11.6-17.2) Platelet Count 141 TH/MM3 (150-450) Mean Platelet Volume 7.5 FL (7.0-11.0) Neutrophils (%) (Auto) 77.7 % (16.0-70.0) Lymphocytes (%) (Auto) 14.8 % (9.0-44.0) Monocytes (%) (Auto) 6.9 % (0.0-8.0) Eosinophils (%) (Auto) 0.2 % (0.0-4.0) Basophils (%) (Auto) 0.4 % (0.0-2.0) Neutrophils # (Auto) 7.5 TH/MM3 (1.8-7.7) Lymphocytes # (Auto) 1.4 TH/MM3 (1.0-4.8) Monocytes # (Auto) 0.7 TH/MM3 (0-0.9) Eosinophils # (Auto) 0.0 TH/MM3 (0-0.4) Basophils # (Auto) 0.0 TH/MM3 (0-0.2) CBC Comment DIFF FINAL Differential Comment Prothrombin Time 14.0 SEC (9.8-11.6) Prothromb Time International Ratio 1.4 RATIO Activated Partial Thromboplast Time 34.9 SEC (24.3-30.1) Blood Urea Nitrogen 25 MG/DL (7-18) Creatinine 1.01 MG/DL (0.60-1.30) Random Glucose 132 MG/DL (74-106) Total Protein 6.0 GM/DL (6.4-8.2) Albumin 3.3 GM/DL (3.4-5.0) Calcium Level 7.7 MG/DL (8.5-10.1) Alkaline Phosphatase 46 U/L (45-117) Aspartate Amino Transf (AST/SGOT) 86 U/L (15-37) Alanine Aminotransferase (ALT/SGPT) 24 U/L (12-78) Total Bilirubin 0.3 MG/DL (0.2-1.0) Direct Bilirubin 0.1 MG/DL (0.0-0.2) Sodium Level 139 MEQ/L (136-145) Chloride Level 102 MEQ/L (98-107) Carbon Dioxide Level 32.7 MEQ/L (21.0-32.0) Anion Gap 4 MEQ/L (5-15) Estimat Glomerular Filtration Rate 71 ML/MIN (>89) Indirect Bilirubin 0.2 MG/DL (0.0-0.8) Test 08/26/17 07:00 08/26/17 08:40 08/26/17 12:20 08/26/17 14:10 Total Creatine Kinase 2365 U/L (39-308) 1538 U/L (39-308) Creatine Kinase MB 8.4 NG/ML (0.5-3.6) 5.4 NG/ML (0.5-3.6) Creatine Kinase MB % 0.4 % (0.0-4.0) 0.4 % (0.0-4.0) Salicylates Level 12.0 MG/DL (2.8-20.0) 10.5 MG/DL (2.8-20.0) Blood Gas Puncture Site ART LINE Blood Gas Patient Temperature 98.6 Blood Gas HCO3 28 mmol/L (22-26) Blood Gas Base Excess 4.1 mmol/L (-2-2) Blood Gas Oxygen Saturation 96 % (90-100) Arterial Blood pH 7.47 (7.380-7.420) Arterial Blood Partial Pressure CO2 38 mmHg (38-42) Arterial Blood Partial Pressure O2 102 mmHg (61-120) Arterial Blood Oxygen Content 15.0 Vol % (12.0-20.0) Arterial Blood Carboxyhemoglobin 0.8 % (0-4) Arterial Blood Methemoglobin 1.4 % (0-2) Blood Gas Hemoglobin 11.1 G/DL (12.0-16.0) Oxygen Delivery Device VENTILATOR Blood Gas Ventilator Setting CPAP 5/10PS Blood Gas Inspired Oxygen 40 % Potassium Level 3.7 MEQ/L (3.5-5.1) Free Thyroxine 0.59 NG/DL (0.76-1.46) Thyroid Stimulating Hormone 3rd Gen 2.550 uIU/ML (0.358-3.740) Test 08/26/17 21:00 08/27/17 04:30 08/27/17 06:40 08/27/17 09:30 Total Creatine Kinase 1658 U/L (39-308) 1335 U/L (39-308) 1101 U/L (39-308) Creatine Kinase MB 3.3 NG/ML (0.5-3.6) 2.9 NG/ML (0.5-3.6) 2.8 NG/ML (0.5-3.6) Creatine Kinase MB % 0.2 % (0.0-4.0) 0.2 % (0.0-4.0) 0.3 % (0.0-4.0) White Blood Count 9.0 TH/MM3 (4.0-11.0) 9.1 TH/MM3 (4.0-11.0) Red Blood Count 2.53 MIL/MM3 (4.50-5.90) 2.32 MIL/MM3 (4.50-5.90) Hemoglobin 8.1 GM/DL (13.0-17.0) 7.3 GM/DL (13.0-17.0) Hematocrit 23.3 % (39.0-51.0) 21.3 % (39.0-51.0) Mean Corpuscular Volume 92.0 FL (80.0-100.0) 92.1 FL (80.0-100.0) Mean Corpuscular Hemoglobin 32.0 PG (27.0-34.0) 31.7 PG (27.0-34.0) Mean Corpuscular Hemoglobin Concent 34.7 % (32.0-36.0) 34.4 % (32.0-36.0) Red Cell Distribution Width 15.2 % (11.6-17.2) 15.2 % (11.6-17.2) Platelet Count 132 TH/MM3 (150-450) 121 TH/MM3 (150-450) Mean Platelet Volume 7.6 FL (7.0-11.0) 7.7 FL (7.0-11.0) Prothrombin Time 12.7 SEC (9.8-11.6) Prothromb Time International Ratio 1.3 RATIO Activated Partial Thromboplast Time 34.3 SEC (24.3-30.1) Blood Urea Nitrogen 48 MG/DL (7-18) Creatinine 0.68 MG/DL (0.60-1.30) Random Glucose 101 MG/DL (74-106) Total Protein 5.4 GM/DL (6.4-8.2) Albumin 2.7 GM/DL (3.4-5.0) Calcium Level 7.3 MG/DL (8.5-10.1) Alkaline Phosphatase 40 U/L (45-117) Aspartate Amino Transf (AST/SGOT) 63 U/L (15-37) Alanine Aminotransferase (ALT/SGPT) 27 U/L (12-78) Total Bilirubin 0.4 MG/DL (0.2-1.0) Direct Bilirubin 0.2 MG/DL (0.0-0.2) Sodium Level 142 MEQ/L (136-145) Potassium Level 4.1 MEQ/L (3.5-5.1) Chloride Level 109 MEQ/L (98-107) Carbon Dioxide Level 27.8 MEQ/L (21.0-32.0) Anion Gap 5 MEQ/L (5-15) Estimat Glomerular Filtration Rate 111 ML/MIN (>89) Protein Corrected Calcium 8.2 MG/DL (8.5-10.1) Indirect Bilirubin 0.2 MG/DL (0.0-0.8) Neutrophils (%) (Auto) 78.3 % (16.0-70.0) Lymphocytes (%) (Auto) 12.0 % (9.0-44.0) Monocytes (%) (Auto) 9.3 % (0.0-8.0) Eosinophils (%) (Auto) 0.1 % (0.0-4.0) Basophils (%) (Auto) 0.3 % (0.0-2.0) Neutrophils # (Auto) 7.1 TH/MM3 (1.8-7.7) Lymphocytes # (Auto) 1.1 TH/MM3 (1.0-4.8) Monocytes # (Auto) 0.8 TH/MM3 (0-0.9) Eosinophils # (Auto) 0.0 TH/MM3 (0-0.4) Basophils # (Auto) 0.0 TH/MM3 (0-0.2) CBC Comment DIFF FINAL Differential Comment Test 08/27/17 17:55 08/27/17 22:00 08/28/17 04:30 White Blood Count 10.2 TH/MM3 (4.0-11.0) 11.3 TH/MM3 (4.0-11.0) Red Blood Count 2.81 MIL/MM3 (4.50-5.90) 2.67 MIL/MM3 (4.50-5.90) Hemoglobin 8.8 GM/DL (13.0-17.0) 8.5 GM/DL (13.0-17.0) 8.4 GM/DL (13.0-17.0) Hematocrit 25.5 % (39.0-51.0) 24.4 % (39.0-51.0) 24.2 % (39.0-51.0) Mean Corpuscular Volume 90.6 FL (80.0-100.0) 90.9 FL (80.0-100.0) Mean Corpuscular Hemoglobin 31.4 PG (27.0-34.0) 31.4 PG (27.0-34.0) Mean Corpuscular Hemoglobin Concent 34.6 % (32.0-36.0) 34.5 % (32.0-36.0) Red Cell Distribution Width 15.4 % (11.6-17.2) 14.9 % (11.6-17.2) Platelet Count 116 TH/MM3 (150-450) 112 TH/MM3 (150-450) Mean Platelet Volume 8.0 FL (7.0-11.0) 7.9 FL (7.0-11.0) Neutrophils (%) (Auto) 78.2 % (16.0-70.0) 85.4 % (16.0-70.0) Lymphocytes (%) (Auto) 13.5 % (9.0-44.0) 6.5 % (9.0-44.0) Monocytes (%) (Auto) 8.0 % (0.0-8.0) 4.9 % (0.0-8.0) Eosinophils (%) (Auto) 0.1 % (0.0-4.0) 0.4 % (0.0-4.0) Basophils (%) (Auto) 0.2 % (0.0-2.0) 2.8 % (0.0-2.0) Neutrophils # (Auto) 8.0 TH/MM3 (1.8-7.7) 9.6 TH/MM3 (1.8-7.7) Lymphocytes # (Auto) 1.4 TH/MM3 (1.0-4.8) 0.7 TH/MM3 (1.0-4.8) Monocytes # (Auto) 0.8 TH/MM3 (0-0.9) 0.6 TH/MM3 (0-0.9) Eosinophils # (Auto) 0.0 TH/MM3 (0-0.4) 0.0 TH/MM3 (0-0.4) Basophils # (Auto) 0.0 TH/MM3 (0-0.2) 0.3 TH/MM3 (0-0.2) CBC Comment DIFF FINAL AUTO DIFF Differential Comment AUTO DIFF CONFIRMED Platelet Estimate LOW (NORMAL) Platelet Morphology Comment NORMAL (NORMAL) Prothrombin Time 10.6 SEC (9.8-11.6) Prothromb Time International Ratio 1.0 RATIO Activated Partial Thromboplast Time 26.8 SEC (24.3-30.1) Blood Urea Nitrogen 43 MG/DL (7-18) Creatinine 0.79 MG/DL (0.60-1.30) Random Glucose 116 MG/DL (74-106) Total Protein 5.5 GM/DL (6.4-8.2) Albumin 2.7 GM/DL (3.4-5.0) Calcium Level 8.0 MG/DL (8.5-10.1) Phosphorus Level 1.6 MG/DL (2.5-4.9) Magnesium Level 2.2 MG/DL (1.5-2.5) Alkaline Phosphatase 45 U/L (45-117) Aspartate Amino Transf (AST/SGOT) 42 U/L (15-37) Alanine Aminotransferase (ALT/SGPT) 22 U/L (12-78) Total Bilirubin 0.6 MG/DL (0.2-1.0) Sodium Level 147 MEQ/L (136-145) Potassium Level 3.6 MEQ/L (3.5-5.1) Chloride Level 116 MEQ/L (98-107) Carbon Dioxide Level 26.8 MEQ/L (21.0-32.0) Anion Gap 4 MEQ/L (5-15) Estimat Glomerular Filtration Rate 94 ML/MIN (>89) Result Diagram: 08/28/17 0430 08/28/17 0430 Microbiology Microbiology Date/Time Source Procedure Growth Status 08/25/17 14:30 Urine Clean Catch Urine Culture - Final NO GROWTH IN 48 HOURS. Complete Imaging Last Impressions Abdomen Ultrasound 08/27/17 0000 Signed Impressions: Service Date/Time: Sunday, August 27, 2017 09:20 - CONCLUSION: Gallbladder wall thickening without stones. Cholecystitis is not excluded. Radionuclide imaging is recommended for further evaluation if clinically indicated. Marco Lloyd MD Chest X-Ray 08/25/17 0000 Signed Impressions: Service Date/Time: Friday, August 25, 2017 07:21 - CONCLUSION: Support lines and tubes as described above. Beto Antoine MD Head CT 08/24/17 2349 Signed Impressions: Service Date/Time: Friday, August 25, 2017 00:02 - CONCLUSION: There is a hypodense subdural collection with slight left to right shift identified. The appearance suggests a chronic subdural hematoma. Duncan Odom MD Procedures INTUBATION 08/25/17 Arterial line 08/25/17 Right subclavian line 08/25/17 Dialysis catheter 08/25/17 . Patient/Family Conference Present at Family Conference: Multiple attempts at calling "Franklyn Mitchell" reportedly a son, but no answer and no voicemail. . Family Conference Time (mins): 39 Family Conference Location: Bedside Issues Discussed: * Palliative care role, purpose, approach * Additional medical, psychosocial, and spiritual history * Patients general health, functional status, and cognitive changes in the months leading up to the current hospitalization * Patient/family understanding of the current medical problems * Patient/family understanding of prognosis * Patients goals of care as best understood from advance directives and/or conversations and/or values * Current medical treatment options and benefits/burdens of those options * Likely scenarios comparing ongoing aggressive care with a transition to comfort measures only * Questions answered to the best of my ability * Palliative care contact information provided . 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 Lives with 2 roommates. 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 Spiritual: Jew background, willing to see a quality liaison of similar background Legal: I don't believe the patient has capacity to make decisions at this time , as he is not oriented to day, date, month, or place, and he remains delusional regarding his own . He reports that he has 3 sons and no healthcare surrogate designation, so we are trying to continue to reach the sons who would be decision making proxies. I believe that a psychiatry evaluation will be useful. Ethical issues impacting care: None . Important Contacts In the record, it mentions a son Franklyn Mitchell at [phone], but no answer and a voicemail on repeated attempts. Also in the record, "friend" Ross Oleary [phone], also no answer and no voicemail. . Prognosis The patient is quite debilitated, malnourished, appears to have been losing weight, and now is quite encephalopathic and delusional. Overall, his prognosis is quite guarded, and he would be appropriate for hospice services at this time if the goals become comfort oriented when decision-makers are found and involved. . Code Status: Full Code Plan * FULL CODE, at least until decision-makers can be found or the patient's encephalopathy clears enough to allow him to demonstrate capacity for making his own decisions. * DECISION-MAKING: I don't believe the patient has capacity to make decisions at this time, as he is not oriented to day, date, month, or place, and he remains delusional regarding his own . He reports that he has 3 sons and no healthcare surrogate designation, so we are trying to continue to reach the sons who would be decision making proxies. I believe that input from psychiatry will be useful. * Psychiatry consult placed * SYMPTOMS: The patient has no obvious pain, and no longer seems to have dyspnea. His encephalopathy and delusional state is quite pronounced, and I will defer medication recommendations to psychiatry. * GOALS: Pending successful contact with family members. * Palliative Care will continue to follow the patient during this hospitalization. . Thank you for the opportunity to participate in the care of Mr. Mitchell. Alyce Montaño MD Aug 28, 2017 12:18
--- NOTE | 2017-08-28 13:31 | PD.PSY.CON ---
Provisional Diagnosis Admission Date Aug 25, 2017 at 05:37 [place] I. Unspecified psychosis vs delirium due to another underlying medical condition [place] II. Deferred [place] III. BPH, HTN, A. fib, CAD, GERD [place] IV. Poor social and family support [place] V. 50 History of Present Illness Service Psychiatry Consult Requested By Critical care team Reason for Consult Suicidal attempt Primary Care Physician Unknown HPI The patient is a 82-year-old man, domiciled with 2 roommates, , supported by "[employer]", without any previous psychiatric history, no previous suicidal attempts, no previous psychiatric hospitalizations , alcohol use disorder, with a past medical history of hypertension and hyperlipidemia, GERD, A. fib, chronic headache, HTN, CAD, who was brought to the emergency department after being found altered. Per hospital records, the patient had been declining for the last 2-3 days. He was brought in the emergency department where he was only oriented to self. He continued to decline and became unresponsive. ABG is significant for severe combined acidosis: 7.13/52/78. salicylate level is 72.6, ck 1200, Cr 1.1, wbc 12.4. Patient was started in emergent dialysis. Salicylate level is now 10.5. Patient was consulted to psychiatry to address a potential suicidal attempt. Chart was reviewed. Patient was discussed with nursing charge. On psychiatric evaluation patient is poorly cooperative, a little bit disorganized and disoriented, but able to provide some information for the psychiatric assessment. The patient reports that he doesn't remember the reason he is in the hospital. The patient denies a suicidal attempt. He says that he was taking aspirin for his headache. However, at the time the patient comes incoherent and illogical. Patient does have a fixed cottar-like, nihilistic delusions of being . He says that he was murdered 2 days ago and he is in the newspaper of [place] that he is already . Even though the patient was reassured and redirected about his current medical condition, the patient was perseverant in the idea that he is . The patient was partially oriented, he denies suicidal and homicidal ideation, he denies visual and auditory hallucinations. As per no revision the patient has been kind of agitated, at times restless and disorganized and even hostile. There is no collateral information available at the moment. Review of Systems Constitutional: DENIES: Diaphoretic episodes, Fatigue, Fever, Weight gain, Weight loss, Chills, Dizziness, Change in appetite, Night Sweats Endocrine: DENIES: Heat/cold intolerance, Polydipsia, Polyuria, Polyphagia Eyes: DENIES: Blurred vision, Diplopia, Eye inflammation, Eye pain, Vision loss , Photosensitivity, Double Vision Ears, nose, mouth, throat: DENIES: Tinnitus, Hearing loss, Vertigo, Nasal discharge, Oral lesions, Throat pain, Hoarseness, Ear Pain, Running Nose, Epistaxis, Sinus Pain, Toothache, Odynophagia Respiratory: DENIES: Apneas, Cough, Snoring, Wheezing, Hemoptysis, Sputum production, Shortness of breath Cardiovascular: DENIES: Chest pain, Palpitations, Syncope, Dyspnea on Exertion , PND, Lower Extremity Edema, Orthopnea, Claudication Gastrointestinal: DENIES: Abdominal pain, Black stools, Bloody stools, Constipation, Diarrhea, Nausea, Vomiting, Difficulty Swallowing, Anorexia Genitourinary: DENIES: Sexual dysfunction, Urinary frequency, Urinary incontinence, Urgency, Hematuria, Dysuria, Nocturia, Penile Discharge, Testicular Pain, Testicular Swelling Musculoskeletal: DENIES: Joint pain, Muscle aches, Stiffness, Joint Swelling, Back pain, Neck pain Integumentary: DENIES: Abnormal pigmentation, Nail changes, Pruritus, Rash Hematologic/lymphatic: DENIES: Bruising, Lymphadenopathy Immunologic/allergic: DENIES: Eczema, Urticaria Neurologic: DENIES: Abnormal gait, Headache, Localized weakness, Paresthesias, Seizures, Speech Problems, Tremor, Poor Balance Psychiatric: COMPLAINS OF: Mood changes, Agitation, Delusions Except as stated in HPI: all other systems reviewed are Neg Past Family Social History Coded Allergies: No Known Allergies (Verified Allergy, Unknown, 08/25/17) Active Scripts Dicyclomine (Bentyl) 10 Mg Cap, 10 MG PO TID Y for Bowel Management, #15 CAP 0 Refills Prov:Viri Richards MD 01/10/17 Sucralfate Liq (Sucralfate Liq) 1 Gm/10 Ml Krystle, 1 GM PO ACHS for gastritis for 30 Days, BOTTLE Prov:Gage Crowder MD 09/17/16 Amlodipine (Norvasc) 5 Mg Tab, 5 MG PO DAILY for Blood Pressure Management for 30 Days, TAB Prov:Gage Crowder MD 09/17/16 Reported Medications Doxazosin (Doxazosin) 4 Mg Tab, 4 MG PO DAILY, #30 TAB 0 Refills 09/10/16 Trazodone (Trazodone) 50 Mg Tab, 50 MG PO TID for Control Depression, #90 TAB 0 Refills 09/10/16 Omeprazole (Omeprazole) 20 Mg Tab, 20 MG PO DAILY, #30 TAB 0 Refills 09/10/16 Tamsulosin (Tamsulosin) 0.4 Mg Cap, 0.4 MG PO HS for Manage Prostate Problems, # 30 CAP 0 Refills 09/10/16 Lovastatin (Lovastatin) 20 Mg Tab, 20 MG PO DAILY for Cholesterol Management, # 30 TAB 0 Refills 09/10/16 Current Medications Medications (Trade) Dose Ordered Sig/Ortega Route Start Time Stop Time Status Last Admin (NS Flush) 2 ml UNSCH PRN IV FLUSH 08/25/17 03:15 08/27/17 10:02 (NS Flush) 2 ml BID IV FLUSH 08/25/17 09:00 08/28/17 08:45 (Tylenol) 650 mg Q4H PRN PO 08/25/17 03:15 08/27/17 21:21 (Zofran Inj) 4 mg Q6H PRN IVP 08/25/17 03:15 (Narcan Inj) 0.4 mg UNSCH PRN IV PUSH 08/25/17 03:15 (Milk Of Magnesia Liq) 30 ml Q12H PRN PO 08/25/17 03:15 (Senokot) 17.2 mg Q12H PRN PO 08/25/17 03:15 (Dulcolax Supp) 10 mg DAILY PRN RECTAL 08/25/17 03:15 (Lactulose Liq) 30 ml DAILY PRN PO 08/25/17 03:15 Miscellaneous Information Patient in critical care unit? Ass... Q361D .XX 08/25/17 07:15 08/25/17 07:15 (Chlorhexidine 2% Cloth) 3 pack DAILY@04 TOPICAL 08/26/17 04:00 08/30/17 04:01 08/28/17 02:54 (Chlorhexidine 2% Cloth) 3 pack UNSCH PRN TOPICAL 08/25/17 07:15 08/30/17 07:14 (Peridex 0.12% Liq) 15 ml BID@08,20 MT 08/25/17 08:00 08/26/17 08:00 Potassium Chloride 100 ml @ 50 mls/hr Q2H PRN IV 08/25/17 07:45 08/26/17 06:21 Potassium Chloride 100 ml @ 50 mls/hr Q2H PRN IV 08/25/17 07:45 (K-Lyte Cl Eff) 50 meq UNSCH PRN PO 08/25/17 07:45 Potassium Chloride 100 ml @ 25 mls/hr UNSCH PRN IV 08/25/17 07:45 Potassium Chloride 100 ml @ 50 mls/hr Q2H PRN IV 08/25/17 07:45 Magnesium Sulfate 4 gm/Sodium Chloride 100 ml @ 50 mls/hr UNSCH PRN IV 08/25/17 07:45 (Mag-Ox) 800 mg UNSCH PRN PO 08/25/17 07:45 Magnesium Sulfate 2 gm/Sodium Chloride 100 ml @ 50 mls/hr UNSCH PRN IV 08/25/17 07:45 (K-Phos) 2,000 mg Q4H PRN PO 08/25/17 07:45 Sodium Phosphate 30 mmol/Sodium Chloride 250 ml @ 42 mls/hr UNSCH PRN IV 08/25/17 07:45 (K-Phos) 2,000 mg UNSCH PRN PO/TUBE 08/25/17 07:45 Potassium Phosphate 30 mmol/ Sodium Chloride 260 ml @ 42 mls/hr UNSCH PRN IV 08/25/17 07:45 08/28/17 08:51 (D50w (Vial) Inj) 25 ml UNSCH PRN IV PUSH 08/25/17 07:45 (NovoLIN R SUPPLEMENTAL SCALE) 1 Q6HR SQ 08/25/17 12:00 (Duoneb Neb) 1 ampule Q6HR NEB INH 08/25/17 10:00 08/28/17 09:20 (Duoneb Neb) 1 ampule Q2HR NEB PRN INH 08/25/17 07:45 Sodium Chloride 1,000 ml @ 0 mls/hr TITRATE PRN OTHER 08/25/17 10:30 08/25/17 12:00 (Heparin Inj) 8,000 units UNSCH PRN IV FLUSH 08/25/17 10:30 Sodium Chloride 1,000 ml @ 200 mls/hr Q5H PRN OTHER 08/25/17 10:30 Sodium Chloride 200 ml @ 0 mls/hr UNSCH PRN IV 08/25/17 10:30 (Mannitol Inj) 12.5 gm UNSCH PRN IV PUSH 08/25/17 10:30 Albumin Human 100 ml @ 60 mls/hr UNSCH PRN IV 08/25/17 10:30 08/25/17 10:00 (NS Flush) 5 ml UNSCH PRN IV FLUSH 08/25/17 10:30 (Heparin Inj) Dwell Heparin to f... UNSCH PRN OTHER 08/25/17 10:30 08/25/17 12:00 (Gentamicin Inj) 10 mg UNSCH PRN OTHER 08/25/17 10:30 08/25/17 12:00 (Gelfoam 12 Mm/7 Mm Top) 1 foam UNSCH PRN TOPICAL 08/25/17 10:30 (Zofran Inj) 4 mg UNSCH PRN IV PUSH 08/25/17 10:30 (Benadryl) 25 mg UNSCH PRN PO 08/25/17 10:30 (Nitrostat Sl) 0.4 mg UNSCH PRN SL 08/25/17 10:30 (Catapres) 0.1 mg UNSCH PRN PO 08/25/17 10:30 Pantoprazole Sodium 80 mg/ Sodium Chloride 100 ml @ 10 mls/hr Q10H IV 08/27/17 09:04 08/28/17 04:28 Ceftriaxone Sodium 1000 mg/ Sodium Chloride 100 ml @ 200 mls/hr Q24H IV 08/27/17 09:00 08/28/17 08:45 (Cardizem) 60 mg Q6HR PO 08/27/17 19:00 08/28/17 11:59 (Morphine Inj) 2 mg Q3H PRN IV PUSH 08/27/17 23:15 08/28/17 11:58 Dextrose/Sodium Chloride 1,000 ml @ 42 mls/hr [id number] IV 08/28/17 10:00 08/28/17 11:59 (SEROquel) 12.5 mg BID@09,12 PO 08/29/17 09:00 UNV Family Psych History No family psychiatric history Social History Patient was born and raised in [place], he is [place] with 2 roommates, , 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 Patient's Strengths (min. 2) Verbal communication Physical Exam No EPS, no tremors, marked psychomotor retardation Vital Signs Vital Signs Date Time Temp Pulse Resp B/P (MAP) Pulse Ox O2 Delivery O2 Flow Rate FiO2 08/28/17 09:22 94 Nasal Cannula 4.00 08/28/17 08:04 12 08/28/17 06:00 120 08/28/17 04:00 98.9 152/65 (94) 08/26/17 12:00 40 I/O 08/28/17 08/28/17 08/29/17 08:00 16:00 00:00 Intake Total 619 ml Output Total 800 ml Balance -181 ml Lab Results Test 08/27/17 17:55 08/27/17 22:00 08/28/17 04:30 White Blood Count 10.2 TH/MM3 11.3 TH/MM3 Red Blood Count 2.81 MIL/MM3 2.67 MIL/MM3 Hemoglobin 8.8 GM/DL 8.5 GM/DL 8.4 GM/DL Hematocrit 25.5 % 24.4 % 24.2 % Mean Corpuscular Volume 90.6 FL 90.9 FL Mean Corpuscular Hemoglobin 31.4 PG 31.4 PG Mean Corpuscular Hemoglobin Concent 34.6 % 34.5 % Red Cell Distribution Width 15.4 % 14.9 % Platelet Count 116 TH/MM3 112 TH/MM3 Mean Platelet Volume 8.0 FL 7.9 FL Neutrophils (%) (Auto) 78.2 % 85.4 % Lymphocytes (%) (Auto) 13.5 % 6.5 % Monocytes (%) (Auto) 8.0 % 4.9 % Eosinophils (%) (Auto) 0.1 % 0.4 % Basophils (%) (Auto) 0.2 % 2.8 % Neutrophils # (Auto) 8.0 TH/MM3 9.6 TH/MM3 Lymphocytes # (Auto) 1.4 TH/MM3 0.7 TH/MM3 Monocytes # (Auto) 0.8 TH/MM3 0.6 TH/MM3 Eosinophils # (Auto) 0.0 TH/MM3 0.0 TH/MM3 Basophils # (Auto) 0.0 TH/MM3 0.3 TH/MM3 CBC Comment DIFF FINAL AUTO DIFF Differential Comment AUTO DIFF CONFIRMED Platelet Estimate LOW Platelet Morphology Comment NORMAL Prothrombin Time 10.6 SEC Prothromb Time International Ratio 1.0 RATIO Activated Partial Thromboplast Time 26.8 SEC Blood Urea Nitrogen 43 MG/DL Creatinine 0.79 MG/DL Random Glucose 116 MG/DL Total Protein 5.5 GM/DL Albumin 2.7 GM/DL Calcium Level 8.0 MG/DL Phosphorus Level 1.6 MG/DL Magnesium Level 2.2 MG/DL Alkaline Phosphatase 45 U/L Aspartate Amino Transf (AST/SGOT) 42 U/L Alanine Aminotransferase (ALT/SGPT) 22 U/L Total Bilirubin 0.6 MG/DL Sodium Level 147 MEQ/L Potassium Level 3.6 MEQ/L Chloride Level 116 MEQ/L Carbon Dioxide Level 26.8 MEQ/L Anion Gap 4 MEQ/L Estimat Glomerular Filtration Rate 94 ML/MIN Date/Time Source Procedure Growth Status 08/25/17 14:30 Urine Clean Catch Urine Culture - Final NO GROWTH IN 48 HOURS. Complete Mental Status Examination Appearance: Appropriate Consciousness: Alert Orientation: Person, Place Motor Activity: Normal gait Speech: Unremarkable Language: Adequate Fund of Knowledge: Adequate Attention and Concentration: Adequate Memory: Impaired Mood: Irritable Affect: Irritable Thought Process & Associations: Intact Thought Content: Appropriate Hallucination Type: None Delusion Type: Other (Nihilistc ) Suicidal Ideation: No Suicidal Plan: No Suicidal Intention: No Homicidal Ideation: No Homicidal Plan: No Homicidal Intention: No Insight: Fair Judgment: Impulsive Assessment & Plan Problem List: (1) Unspecified psychosis ICD Codes: F29 - Unspecified psychosis not due to a substance or known physiological condition Assessment & Plan: On psychiatric evaluation today the patient denies that his recent overdose with aspirin was with suicidal intentions. He says that he was taken this medication for his headache. The patient denies depressive symptoms , he does report feeling overwhelmed and very anxious, he denies anhedonia, hopelessness, helplessness, he denies suicidal and homicidal ideation. He denies visual and auditory hallucinations. The patient has been reportedly disorganized, agitated and combative, but he is calm and cooperative at this moment. He does have a fixed nihilistc/ cottar-like delusion of being . 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 the patient is partially oriented, a major neurocognitive disorder is also possible. Patient might benefit of psychiatric admission once he is medically stable for safety and stabilization. I will start a low dose of Seroquel, 12.5 mg twice a day to help with irritable, agitation and also with psychosis. I will follow-up. Assessment & Plan Estimated LOS: days Kwabena Cohn MD Aug 28, 2017 13:31
[2017-08-28 13:49] LABS: HEMATOCRIT 24.4 % (39.0-51.0); HEMOGLOBIN 8.4 GM/DL (13.0-17.0)
--- NOTE | 2017-08-28 15:39 | GIPROC ---
[facility] [address] [facility]. [facility], [address] EGD WITH DILATION PROCEDURE REPORT EXAM DATE: 08/28/2017 PATIENT NAME: Roshan Mitchell MR#: [id number] BIRTHDATE: 1935 ATTENDING: Carmen Villalobos MD ORDER #: [id number] ROD POINTER: Jamie Stevens and Katina Mccoy STATUS: inpatient INDICATIONS: The patient is a 82 yr old male here for an EGD with dilation due to anemia , gi bleeding PROCEDURE PERFORMED: EGD w/ biopsy MEDICATIONS: None and Per Anesthesia. TOPICAL ANESTHETIC: none CONSENT: The patient understands the risks and benefits of the procedure and understands that these risks include, but are not limited to: sedation, allergic reaction, infection, perforation and/or bleeding. Alternative means of evaluation and treatment include, among others: physical exam, x-rays, and/or surgical intervention. The patient elects to proceed with this endoscopic procedure. medical equipment was checked for proper function. Hand hygiene and appropriate measures for infection prevention was taken. After the risks, benefits and alternatives of the procedure were thoroughly explained, Informed consent was verified, confirmed and timeout was successfully executed by the treatment team. The patient was anesthetized with topical anesthesia and the [employer] (PIROX)ax [id number] endoscope was introduced through the mouth and advanced to the second portion of the duodenum. The instrument was slowly withdrawn as the mucosa was fully examined. Two ulcers in antrum /pyloric channel-clean base-biopsy gastritis antrum-biopsy duodenitis duodenal bulb-biopsy stricture distal esophagus-biopsys/p dilatation Savary 12.8 esophagitis ulcers in oropharynx , enlarged base of yvonne tongue?. Dilation was performed at gastroesophageal junction. DILATOR: SIZE(S): RESISTANCE: HEME: APPEARANCE: Dilator: Savary over guidewire Size(s): 12.8 COMMENT: Retroflexed views revealed a hiatal hernia ADVERSE EVENTS: There were no complications. IMPRESSIONS: 1. Two ulcers in antrum /pyloric channel-clean base-biopsy gastritis antrum-biopsy duodenitis duodenal bulb-biopsy stricture distal esophagus-biopsys/p dilatation Savary 12.8 esophagitis ulcers in oropharynx , enlarged base of yvonne tongue? 2. Retroflexed views revealed a hiatal hernia RECOMMENDATIONS: 1. Await biopsy results. Biopsy results will not be ready for 7-10 days. If you don't hear from us in two weeks, call our office for biopsy results. 2. Anti-reflux regimen 3. Continue PPI 4. Avoid NSAIDS 5. Full liquid diet ent consult speech theraphy eval REPEAT EXAM: Return 2 months EGD with dilatation Carmen Villalobos MD eSigned: Carmen Villalobos MD 08/28/2017 3:39 PM cc: PATIENT NAME: Roshan Mitchell MR#: [id number]
[2017-08-28] MEDS ORDERED: MIDAZOLAM HCL 2 MG/2 ML VIAL IV PUSH ONE (20:15)
[2017-08-28] MEDS ORDERED: MIDAZOLAM HCL 5 MG/ML VIAL (1 ML) ONE (20:15)
--- NOTE | 2017-08-28 20:31 | RADRPT ---
EXAM DATE/TIME: 08/28/2017 20:03 [facility] COMPARISON: CHEST SINGLE AP, August 24, 2017, 23:59. CHEST SINGLE AP, August 25, 2017, 7:21. INDICATIONS : Short of breath. respiratory distress. MEDICAL HISTORY : Hypercholesterolemia. Atrial fibrillation. Melanoma. Bladder retention. SURGICAL HISTORY : Right nare removal. ENCOUNTER: Subsequent ACUITY: 4 - 6 days PAIN SCORE: 0/10 LOCATION: Bilateral chest FINDINGS: On today's examination there is a large right-sided pneumothorax with collapse of the right lung. The re is a mediastinal shift to the left. There is a single remaining right-sided central line in place. The previously noted ET tube and right-sided central line has been. There appears to be some mild pa renchymal changes in the left upper lung. The heart size is large but stable. No definite pleural eff usions. The bony structures are stable. The findings were called by telephone to the ordering physician. CONCLUSION: Large right pneumothorax Pavel Alvarenga MD on August 28, 2017 at 20:24 Board Certified Radiologist. This report was verified electronically.
--- NOTE | 2017-08-28 21:17 | RADRPT ---
EXAM DATE/TIME: 08/28/2017 20:58 [facility] COMPARISON: CHEST SINGLE AP, August 28, 2017, 20:03. INDICATIONS : Post right chest tube placement. MEDICAL HISTORY : Hypercholesterolemia. Atrial fibrillation. Melanoma. Bladder retention. SURGICAL HISTORY : Right nare removal. ENCOUNTER: Subsequent ACUITY: 4 - 6 days PAIN SCORE: Non-responsive. LOCATION: Bilateral chest FINDINGS: A small right-sided chest tube has been placed. There has been significant improvement in the previou sly noted large right pneumothorax. There continues to be an apical pneumothorax with 2 cm of separat ion. There is 1.8 cm separation at the right costophrenic angle. There is atelectasis involving the r ight lower lung. Otherwise there's been relatively good reexpansion of the right lung compared to the prior exam. There continues to be a infiltrate in the left upper lung. No evidence of left pneumotho rax. The heart size remains diffusely enlarged. The bony structures are stable. CONCLUSION: 1. Right-sided chest tube has been placed. 2. There is an overall improvement with reexpansion of the right lung with a small residual pneumotho rax on the right side with 2 cm of separation at the apex and 1.8 cm separation at the right costophr enic angle. 3. There continues to be an infiltrate in the left upper lung. Pavel Alvarenga MD on August 28, 2017 at 21:13 Board Certified Radiologist. This report was verified electronically.
[2017-08-28 21:46] LABS: HEMATOCRIT 23.7 % (39.0-51.0)
[2017-08-28] MEDS: AMIODARONE INJ 450 MG in SODIUM CHLOR 0.9% (EXCEL) INJ 250 ML IV PRN (22:11)
[2017-08-29] VITALS (14 sets, daily range): BP systolic 111–133; BP diastolic 58–70; PULSE 78–133; RESP 16–28; TEMP 97.2–99.3; O2SAT 93–100
[2017-08-29] MEDS: PANTOPRAZOLE INJ 80 MG in SODIUM CHLORIDE 0.9% INJ 100 ML IV SCH ×3 (02:10→23:48)
[2017-08-29] MEDS: CHLORHEXIDINE GLUCONATE 2 % 1 PACK (2 CLOTHS)(taper/protocol) TOPICAL SCH (04:00)
[2017-08-29] MEDS: RESP: ALBUTEROL 2.5 MG/IPRATROPIUM 0.5 MG NEB (SCH) INH (04:00)
[2017-08-29] MEDS: DILTIAZEM HCL 60 MG TAB PO SCH ×5 (04:56→23:48)
[2017-08-29] MEDS: MORPHINE SULFATE 4 MG/ML INJ IV PUSH PRN ×2 (04:57→09:28)
[2017-08-29 05:31] LABS: AUTOMATED NEUTROPHIL # 17.1 TH/MM3 (1.8-7.7); BASOPHIL % 0.1 % (0.0-2.0); EOSINOPHIL % 0.1 % (0.0-4.0); HEMATOCRIT 23.8 % (39.0-51.0); LYMPH % 5.2 % (9.0-44.0); MEAN CELL VOLUME 94.5 FL (80.0-100.0); MEAN CORPUSCULAR HEMOGLOBIN 31.9 PG (27.0-34.0); MEAN CORPUSCULAR HGB CONC 33.7 % (32.0-36.0); MEAN PLATELET VOLUME 8.3 FL (7.0-11.0); MONO % 4.1 % (0.0-8.0); MONOCYTE # 0.8 TH/MM3 (0-0.9); NEUT % 90.5 % (16.0-70.0); PLATELET COUNT 115 TH/MM3 (150-450); RED BLOOD COUNT 2.52 MIL/MM3 (4.50-5.90); WHITE BLOOD COUNT 18.9 TH/MM3 (4.0-11.0)
[2017-08-29 05:42] LABS: INTERNATIONAL NORMALIZED RATIO 1.1 RATIO; PROTHROMBIN TIME - PATIENT 10.7 SEC (9.8-11.6)
--- NOTE | 2017-08-29 05:45 | PD.PROCEDR ---
Procedure Note Procedure Chest tube placement/right Procedure: CHEST TUBE Indication: Large pneumothorax Performed by: Ricky Maki A time out procedure was performed Initials Consent obtained JV Correct patient JV Correct procedure JV Correct site JV Correct positioning JV Correct supplies JV Patient was positioned, prepped and draped in usual sterile fashion. ccs 1% Lidocaine was used to anesthetize the area. An incision was made and blunt dissection was performed and curved forceps were used to enter the pleural space. A 10 fr chest tube was placed to 15cm. The tube was secured and taped. A chest xray was ordered to evaluate for placement of the chest tube. A pigtail catheter was placed using the seldinger technique. Initial Fluid Removed: 50 Patient tolerated the procedure well and there were no complications. Ricky Maki MD Aug 29, 2017 05:45
[2017-08-29 05:56] LABS: ALBUMIN 2.7 GM/DL (3.4-5.0); BICARBONATE 25.1 MEQ/L (21.0-32.0); CALCIUM 8.1 MG/DL (8.5-10.1); CREATININE 0.81 MG/DL (0.60-1.30); DIRECT BILIRUBIN ADULT 0.3 MG/DL (0.0-0.2); INDIRECT BILIRUBIN 0.2 MG/DL (0.0-0.8); MAGNESIUM 2.3 MG/DL (1.5-2.5); TOTAL BILIRUBIN ADULT 0.5 MG/DL (0.2-1.0); TOTAL PROTEIN 5.8 GM/DL (6.4-8.2)
[2017-08-29] MEDS: INSULIN NovoLIN REGULAR SUPPLEMENTAL SCALE SQ SCH ×5 (06:00→23:48)
[2017-08-29] MEDS: POTASSIUM PHOSPHATE INJ 30 MMOL in SODIUM CHLOR 0.9% 250 ML INJ 250 ML IV PRN (06:56)
[2017-08-29] MEDS: AMIODARONE INJ 450 MG in SODIUM CHLOR 0.9% (EXCEL) INJ 250 ML IV PRN (07:46)
[2017-08-29] MEDS: CHLORHEXIDINE 0.12% (ORAL KIT) 15 ML CUP MT SCH ×2 (08:00→19:27)
--- NOTE | 2017-08-29 08:20 | HHI.CCPN ---
Subjective Remarks/Hospital Course Hospital Course: This is an 82-year-old male with a past medical history of hypertension and hyperlipidemia who was brought to the emergency department after being found altered. Per hospital records, the patient had been declining for the last 2-3 days. He was brought in the emergency department where he was only oriented to self. He continued to decline and became unresponsive. ABG is significant for severe combined acidosis: 7.13/52/78. salicylate level is 72.6, ck 1200, Cr 1.1 , wbc 12.4. I was called by Dr. Yanes about emergent transfer to the ICU. the patient came into the ICU during my conversation and I immediately evaluated the patient who at this point was unresponsive and agonal. I emergently intubated the patient (see separate procedure note for details). I then placed central line and dialysis catheter emergently, as well as arterial line for serial ABGs. I discussed the case then with Dr. Nagel who agrees with emergent dialysis. Subjective: 08/26: salicylate level still elevated, although downtrending. CKs still elevated and uptrended throughout the day. uop marginal at best. more awake than yesterday. discussed with poison control, ok to stop trending salicylate levels. 08/27 Patient is on 4L oxygen. Had large black tarry stool BM this morning Hgb dropped 7.3 from 11.6 yesterday. Afebrile. On Cardizem drip 10mg/hr. ASA level 10.5 this morning. 08/28 Patient is lying in bed in NAD. s/p transfusion 2u PRBC yesterday Hgb 8.4 this morning. Refused EGD yesterday. Off Cardizem drip. 08/29 Patient had right sided PTX last night s/p CT placement with reexpansion of right lung post CT placement. Started on Amio drip last night for Afib RVR Objective Vital Signs Date Time Temp Pulse Resp B/P (MAP) Pulse Ox O2 Delivery O2 Flow Rate FiO2 08/29/17 07:46 128 135/69 08/29/17 04:00 93 Partial Non-Rebreather 08/29/17 04:00 98.8 24 08/28/17 20:02 15.00 08/26/17 12:00 40 Intake and Output 08/29/17 08/29/1718 08:00 16:00 00:00 Intake Total 1116 ml Output Total 1232 ml Balance -116 ml Result Diagram: 08/29/17 0500 08/29/17 0500 Other Results Laboratory Tests Test 08/28/17 13:15 08/28/17 19:20 08/29/17 05:00 Hemoglobin 8.4 GM/DL 8.0 GM/DL 8.0 GM/DL Hematocrit 24.4 % 23.7 % 23.8 % White Blood Count 18.9 TH/MM3 Red Blood Count 2.52 MIL/MM3 Mean Corpuscular Volume 94.5 FL Mean Corpuscular Hemoglobin 31.9 PG Mean Corpuscular Hemoglobin Concent 33.7 % Red Cell Distribution Width 15.0 % Platelet Count 115 TH/MM3 Mean Platelet Volume 8.3 FL Neutrophils (%) (Auto) 90.5 % Lymphocytes (%) (Auto) 5.2 % Monocytes (%) (Auto) 4.1 % Eosinophils (%) (Auto) 0.1 % Basophils (%) (Auto) 0.1 % Neutrophils # (Auto) 17.1 TH/MM3 Lymphocytes # (Auto) 1.0 TH/MM3 Monocytes # (Auto) 0.8 TH/MM3 Eosinophils # (Auto) 0.0 TH/MM3 Basophils # (Auto) 0.0 TH/MM3 CBC Comment DIFF FINAL Differential Comment Prothrombin Time 10.7 SEC Prothromb Time International Ratio 1.1 RATIO Activated Partial Thromboplast Time 25.8 SEC Blood Urea Nitrogen 28 MG/DL Creatinine 0.81 MG/DL Random Glucose 121 MG/DL Total Protein 5.8 GM/DL Albumin 2.7 GM/DL Calcium Level 8.1 MG/DL Phosphorus Level 2.0 MG/DL Magnesium Level 2.3 MG/DL Alkaline Phosphatase 57 U/L Aspartate Amino Transf (AST/SGOT) 30 U/L Alanine Aminotransferase (ALT/SGPT) 21 U/L Total Bilirubin 0.5 MG/DL Direct Bilirubin 0.3 MG/DL Sodium Level 148 MEQ/L Potassium Level 3.6 MEQ/L Chloride Level 116 MEQ/L Carbon Dioxide Level 25.1 MEQ/L Anion Gap 7 MEQ/L Estimat Glomerular Filtration Rate 91 ML/MIN Indirect Bilirubin 0.2 MG/DL Imaging Last Impressions Chest X-Ray 08/28/17 0000 Signed Impressions: Service Date/Time: Monday, August 28, 2017 20:58 - CONCLUSION: 1. Right-sided chest tube has been placed. 2. There is an overall improvement with reexpansion of the right lung with a small residual pneumothorax on the right side with 2 cm of separation at the apex and 1.8 cm separation at the right costophrenic angle. 3. There continues to be an infiltrate in the left upper lung. Pavel Alvarenga MD Abdomen Ultrasound 08/27/17 0000 Signed Impressions: Service Date/Time: Sunday, August 27, 2017 09:20 - CONCLUSION: Gallbladder wall thickening without stones. Cholecystitis is not excluded. Radionuclide imaging is recommended for further evaluation if clinically indicated. Marco Lloyd MD Head CT 08/24/17 2349 Signed Impressions: Service Date/Time: Friday, August 25, 2017 00:02 - CONCLUSION: There is a hypodense subdural collection with slight left to right shift identified. The appearance suggests a chronic subdural hematoma. Duncan Odom MD Objective Remarks GENERAL: Elderly frail cachectic male, lying in bed in NAD HEENT: Normocephalic. Atraumatic. Pupils equal, round, reactive, conjugate. Mucous membranes are still dry. NECK: Trachea is midline. There is no JVD. CHEST: PRVC, 40% fio2, clear bilaterally. CARDIOVASCULAR: Tachycardic rate, irregularly irregular rhythm. afib by tele. ABDOMEN: Soft, scaphoid nontender, nondistended. No guarding. MUSCULOSKELETAL: Pulses 2+. No peripheral edema. NEUROLOGICAL: Awake A/P Assessment and Plan Plan by systems: Neurologic: Psychosis Toxic encephalopathy- resolved - salicylate subtherapeutic now. 10.5 yesterday -s/p emergent dialysis 2/3 - neuro checks -Psych is following Respiratory: Acute hypoxic and hypercarbic respiratory failure- Extubated 2/4 ?COPD Right sided PTX s/p CT placement Continue with oxygen keep sat >92% Bronchodilators, add solumederol 40mg Q8 Monitor CT output: 132 ml since last night Cardiovascular: Atrial fibrillation with rapid ventricular response On Cardizem 60mg Q6, add Lopressor 25mg Q12 monitor HR and BP keep MAP>65mmHG Check 2D echo to eval LV function Renal: Acute kidney injury-imprving Acute rhabdomyolysis -Monitor renal function, I/O's, electrolytes replacement per protocol. -s/p Emergent dialysis / change IVF D5W@50ml/hr , . FEN/GI: GI bleed Anemia 2nd acute blood loss Severe acute protein calorie malnutrition --s/p EGD 08/28: Two ulcers in antrum /pyloric channel-clean base-biopsy gastritis antrum-biopsy duodenitis duodenal bulb-biopsy ,stricture distal esophagus-biopsys/p dilatation, esophagitis - GI is following Dr. Villalobos, on Protonix drip -s/p Transfusion 2units PRBC on 08/27. US abdomen: Gallbladder wall thickening without stones On full liquid diet Heme Monitor CBC, coags-s/p transfusion 2u PRBC 08/27 ID Monitor for signs of infections ( Fever, WBC) on Rocephin follow up on urine cx Endocrine: hyperglycemia of critical illness SSI q6h med scale Prophylaxis: GI Prophylaxis Pepcid DVT Prophylaxis -- SCDs history of chronic subdurals, not on AC prophylaxis given GI bleed and anemia requiring blood transfusion . Lines: 2/3: right SC TLC 2/3: right IJ vascath d/c 08/28 2/3: chery. Dispo: remain in ICU. Palliative care is following Level 2 Eddie Barr MD Aug 29, 2017 08:20
[2017-08-29] MEDS: METOPROLOL TARTRATE 25 MG TAB PO SCH ×2 (08:54→20:08)
[2017-08-29] MEDS: QUEtiapine FUMARATE 25 MG TAB PO SCH ×2 (08:54→12:50)
[2017-08-29] MEDS: SODIUM CHLORIDE 0.9% FLUSH 10 ML FLUSH IV FLUSH SCH ×2 (08:55→20:08)
[2017-08-29] MEDS: cefTRIAXone INJ 1,000 MG in SODIUM CHLORIDE 0.9% INJ 100 ML IV SCH (08:55)
[2017-08-29] MEDS: DEXTROSE 5% IN WATE 1000ML INJ 1,000 ML IV SCH (09:03)
--- NOTE | 2017-08-29 09:24 | RADRPT ---
EXAM DATE/TIME: 08/29/2017 08:36 [facility] COMPARISON: CHEST SINGLE AP, August 28, 2017, 20:58. INDICATIONS : S/p pneumothorax MEDICAL HISTORY : Hypercholesterolemia. BPH, A-fib, melanoma SURGICAL HISTORY : None. ENCOUNTER: Initial ACUITY: 4 - 6 days PAIN SCORE: 0/10 LOCATION: Bilateral chest FINDINGS: The cardiac silhouette is enlarged in transverse diameter. Right-sided chest tube is in place with pn eumothorax at the right base and right apex. There are no signs of tension. There is subcutaneous emp hysema along the right lateral chest wall. A right sided subclavian right vein catheter is in place w ithout pneumothorax with its tip in the superior vena cava. Pulmonary edema persists. CONCLUSION: 1. Continued right-sided pneumothorax without tension. 2. Pulmonary edema. Marco Lloyd MD on August 29, 2017 at 9:14 Board Certified Radiologist. This report was verified electronically.
[2017-08-29] MEDS: DEXT 5%-NACL 0.45% 1000 ML INJ 1,000 ML IV SCH (09:27)
--- NOTE | 2017-08-29 09:58 | HHI.HCSW ---
[employer] T[employer] Visit Significant Family/Friend Attempting to contact family to address goals of care. Number listed in EMR has not been successful. Will continue to try. Franklyn Mitchell, son: #[phone]-- # in EMR-- number just rings Google search conducted for additional contact: #[phone]-- unable to leave a message #[phone]-- generic voicemail, left message requesting call back Unable to identify on social media without additional information. Telephoned friend Ross Oleary #[phone] in attempt to inquire about patient' s family. Number just rings, unable to leave a message. Informed number in EMR incorrect, correct number #[phone]. Attempted to contact, no answer left message requesting call back. In review of old records, friend Franklyn Lara #[phone] listed as contact. Spoke with Franklyn who confirms Mr. Mitchell does have three children whom live up [place]. He states he believes one son's name is Shadi. Reports he believes Mr. Mitchell may have his kids information, and some medical paperwork, in his desk at home. Will ask roommate, Ross, if able to speak with him. . Follow Up Visit Palliative care will continue to follow throughout hospitalization. Attempting to identify legal proxy decision maker. Will address goals of care once identified. Katina Alegria, [employer]OR Aug 29, 2017 09:58
[2017-08-29] MEDS: methylPREDNISolone SOD SUCC 40 MG/1 ML VIAL IV PUSH SCH ×2 (10:15→17:56)
--- NOTE | 2017-08-29 12:51 | HHI.PYPN ---
Subjective Remarks Patient was revisited today for psychiatric reevaluation. Chart was reviewed. The patient is minimally verbal at the moment, but he does express that knows that he is and he was murdered 4 days ago. Patient asked me if I check in the newspaper about these episodes. Patient at this moment seems to be confused , just partially oriented, lethargic. Review of Systems Psychiatric: COMPLAINS OF: Delusions Except as stated in HPI: all other systems reviewed are Neg Mental Status Examination Appearance: Appropriate Consciousness: Alert Orientation: Person, Place Motor Activity: Normal gait Speech: Unremarkable Language: Adequate Fund of Knowledge: Adequate Attention and Concentration: Adequate Memory: Impaired Mood: Irritable Affect: Irritable Thought Process & Associations: Intact Thought Content: Appropriate Hallucination Type: None Delusion Type: Other (Nihilistc ) Suicidal Ideation: No Suicidal Plan: No Suicidal Intention: No Homicidal Ideation: No Homicidal Plan: No Homicidal Intention: No Insight: Fair Judgment: Impulsive Results Labs Test 08/28/17 13:15 08/28/17 19:20 08/29/17 05:00 08/29/17 08:30 Hemoglobin 8.4 GM/DL 8.0 GM/DL 8.0 GM/DL Hematocrit 24.4 % 23.7 % 23.8 % White Blood Count 18.9 TH/MM3 Red Blood Count 2.52 MIL/MM3 Mean Corpuscular Volume 94.5 FL Mean Corpuscular Hemoglobin 31.9 PG Mean Corpuscular Hemoglobin Concent 33.7 % Red Cell Distribution Width 15.0 % Platelet Count 115 TH/MM3 Mean Platelet Volume 8.3 FL Neutrophils (%) (Auto) 90.5 % Lymphocytes (%) (Auto) 5.2 % Monocytes (%) (Auto) 4.1 % Eosinophils (%) (Auto) 0.1 % Basophils (%) (Auto) 0.1 % Neutrophils # (Auto) 17.1 TH/MM3 Lymphocytes # (Auto) 1.0 TH/MM3 Monocytes # (Auto) 0.8 TH/MM3 Eosinophils # (Auto) 0.0 TH/MM3 Basophils # (Auto) 0.0 TH/MM3 CBC Comment DIFF FINAL Differential Comment Prothrombin Time 10.7 SEC Prothromb Time International Ratio 1.1 RATIO Activated Partial Thromboplast Time 25.8 SEC Blood Urea Nitrogen 28 MG/DL Creatinine 0.81 MG/DL Random Glucose 121 MG/DL Total Protein 5.8 GM/DL Albumin 2.7 GM/DL Calcium Level 8.1 MG/DL Phosphorus Level 2.0 MG/DL Magnesium Level 2.3 MG/DL Alkaline Phosphatase 57 U/L Aspartate Amino Transf (AST/SGOT) 30 U/L Alanine Aminotransferase (ALT/SGPT) 21 U/L Total Bilirubin 0.5 MG/DL Direct Bilirubin 0.3 MG/DL Sodium Level 148 MEQ/L Potassium Level 3.6 MEQ/L Chloride Level 116 MEQ/L Carbon Dioxide Level 25.1 MEQ/L Anion Gap 7 MEQ/L Estimat Glomerular Filtration Rate 91 ML/MIN Indirect Bilirubin 0.2 MG/DL Blood Gas Puncture Site RT RADIAL Blood Gas Patient Temperature 98.6 Blood Gas HCO3 24 mmol/L Blood Gas Base Excess 0.0 mmol/L Blood Gas Oxygen Saturation 91 % Arterial Blood pH 7.43 Arterial Blood Partial Pressure CO2 37 mmHg Arterial Blood Partial Pressure O2 64 mmHg Arterial Blood Oxygen Content 10.6 Vol % Arterial Blood Carboxyhemoglobin 1.1 % Arterial Blood Methemoglobin 1.3 % Blood Gas Hemoglobin 8.3 G/DL Oxygen Delivery Device Non-Rebreathing Mask Blood Gas Liter Flow 15 L/M Date/Time Source Procedure Growth Status 08/25/17 14:30 Urine Clean Catch Urine Culture - Final NO GROWTH IN 48 HOURS. 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 Assessment & Plan Estimated LOS: days Justification for Cont. Inpt. Once medically clear patient might benefit of psychiatric admission due to acute psychosis and recent suicidal attempt. Kwabena Cohn MD Aug 29, 2017 12:51
--- NOTE | 2017-08-29 13:38 | HHI.HCPN ---
Reason for visit a. To assist with evaluation and management of symptoms including: Encephalopathy, delusions, pain b. To assist medical decision maker(s) with: better understanding of current medical conditions; weighing benefits/burdens of medical treatment options; making medical treatment decisions. . Subjective/Interval History INTERVAL NOTE: Psychiatry saw patient, confirming the nihilistic delusions. Overnight, the patient became more tachypneic and dyspneic, and a repeat x-ray revealed a pneumothorax, and a chest tube was placed. He has been on circumflex well and on a nonrebreather this morning, but now is quite lethargic. Remains afebrile. Considerable effort going into trying to locate family. Internet searches have come up with some phone numbers that have been unhelpful, and the patient's local friend Ross has not returned phone calls. The RN who had the patient the very first day he was here reports that Ross told her he would provide phone numbers....but he has not. . Advance Directives Living Will: Never completed Health Care Surrogate: Never completed Durable Power of Plunger Scoop Operator: Never completed Objective Vital Signs Date Time Temp Pulse Resp B/P (MAP) Pulse Ox O2 Delivery O2 Flow Rate FiO2 08/29/17 13:12 95 Partial Rebreather 13.00 08/29/17 12:00 98.9 78 20 111/58 (75) 96 08/29/17 12:00 78 08/29/17 10:00 129 08/29/17 09:56 31 08/29/17 08:00 98.7 110 24 132/66 (88) 93 08/29/17 08:00 110 08/29/17 08:00 93 Partial Non-Rebreather 15.00 08/29/17 07:46 128 135/69 08/29/17 06:00 130 08/29/17 04:00 93 Partial Non-Rebreather 08/29/17 04:00 116 08/29/17 04:00 98.8 116 24 133/70 (91) 93 08/29/17 03:43 125 111/57 08/29/17 02:00 120 08/29/17 00:00 100 Partial Non-Rebreather 08/29/17 00:00 99.3 133 18 129/59 (82) 100 08/29/17 00:00 133 08/28/17 23:00 141 19 104/72 (83) 95 08/28/17 22:45 143 19 113/79 (90) 92 08/28/17 22:30 137 36 115/69 (84) 97 08/28/17 22:15 134 23 111/72 (85) 97 08/28/17 22:11 144 125/67 08/28/17 22:00 129 08/28/17 20:02 92 Partial Rebreather 15.00 08/28/17 20:00 98.2 121 30 124/61 (82) 90 08/28/17 20:00 121 08/28/17 20:00 90 Partial Non-Rebreather 08/28/17 19:50 90 Simple Mask 10.00 08/28/17 18:00 144 08/28/17 16:00 138 08/28/17 16:00 98.0 138 16 138/70 (92) 93 08/28/17 16:00 93 Nasal Cannula 5.00 08/28/17 14:55 138 18 121/64 (83) 94 08/28/17 14:55 123 08/28/17 14:55 Nasal Cannula 5 08/28/17 14:45 133 18 115/64 (81) 93 08/28/17 14:30 135 18 148/65 (92) 93 08/28/17 14:15 131 18 156/60 (92) 93 08/28/17 14:05 115 08/28/17 14:05 Nasal Cannula 5 08/28/17 14:05 97.8 123 18 151/82 (105) 94 08/28/17 14:00 120 Intake & Output 08/29/17 08/29/17 07:00 19:00 Intake Total 1116 ml 271 ml Output Total 1232 ml Balance -116 ml 271 ml Intake Oral 300 ml IV Total 816 ml 271 ml Output Urine Total 1100 ml Chest Tube Drainage Total 132 ml # Bowel Movements 0 Physical Exam CONSTITUTIONAL/GENERAL: This is a disheveled, elderly, weak patient, in no apparent distress, lethargic, O2 mask in place. TUBES/LINES/DRAINS: SCDs, Ansari, right subclavian line NECK: Trachea midline. Supple, nontender. No palpable thyroid enlargement or nodularity. CARDIOVASCULAR: Irregular rhythm without murmurs, gallops, or rubs. No JVD. Peripheral pulses diminished. RESPIRATORY/CHEST: Symmetric, unlabored respirations. Mild wheezing bilateral, scattered rhonchi GASTROINTESTINAL: Abdomen soft, non-tender, nondistended. No hepato-splenomegaly , or palpable masses. No guarding. Bowel sounds present. GENITOURINARY: Without palpable bladder distension. Ansari catheter in place. MUSCULOSKELETAL: Extremities without clubbing, cyanosis, or edema. No joint tenderness or effusion noted. No calf tenderness. No mottling or clubbing. LYMPHATICS: No palpable cervical or supraclavicular adenopathy. NEUROLOGICAL: More lethargic today, opens eyes but nonverbal PSYCHIATRIC: No obvious anxiety, depression, psychosis, hallucinations at this time. . Diagnostic Tests Laboratory Laboratory Tests Test 08/26/17 14:10 08/26/17 21:00 08/27/17 04:30 08/27/17 06:40 Potassium Level 3.7 MEQ/L (3.5-5.1) 4.1 MEQ/L (3.5-5.1) Total Creatine Kinase 1538 U/L (39-308) 1658 U/L (39-308) 1335 U/L (39-308) Creatine Kinase MB 5.4 NG/ML (0.5-3.6) 3.3 NG/ML (0.5-3.6) 2.9 NG/ML (0.5-3.6) Creatine Kinase MB % 0.4 % (0.0-4.0) 0.2 % (0.0-4.0) 0.2 % (0.0-4.0) Free Thyroxine 0.59 NG/DL (0.76-1.46) Thyroid Stimulating Hormone 3rd Gen 2.550 uIU/ML (0.358-3.740) White Blood Count 9.0 TH/MM3 (4.0-11.0) 9.1 TH/MM3 (4.0-11.0) Red Blood Count 2.53 MIL/MM3 (4.50-5.90) 2.32 MIL/MM3 (4.50-5.90) Hemoglobin 8.1 GM/DL (13.0-17.0) 7.3 GM/DL (13.0-17.0) Hematocrit 23.3 % (39.0-51.0) 21.3 % (39.0-51.0) Mean Corpuscular Volume 92.0 FL (80.0-100.0) 92.1 FL (80.0-100.0) Mean Corpuscular Hemoglobin 32.0 PG (27.0-34.0) 31.7 PG (27.0-34.0) Mean Corpuscular Hemoglobin Concent 34.7 % (32.0-36.0) 34.4 % (32.0-36.0) Red Cell Distribution Width 15.2 % (11.6-17.2) 15.2 % (11.6-17.2) Platelet Count 132 TH/MM3 (150-450) 121 TH/MM3 (150-450) Mean Platelet Volume 7.6 FL (7.0-11.0) 7.7 FL (7.0-11.0) Prothrombin Time 12.7 SEC (9.8-11.6) Prothromb Time International Ratio 1.3 RATIO Activated Partial Thromboplast Time 34.3 SEC (24.3-30.1) Blood Urea Nitrogen 48 MG/DL (7-18) Creatinine 0.68 MG/DL (0.60-1.30) Random Glucose 101 MG/DL (74-106) Total Protein 5.4 GM/DL (6.4-8.2) Albumin 2.7 GM/DL (3.4-5.0) Calcium Level 7.3 MG/DL (8.5-10.1) Alkaline Phosphatase 40 U/L (45-117) Aspartate Amino Transf (AST/SGOT) 63 U/L (15-37) Alanine Aminotransferase (ALT/SGPT) 27 U/L (12-78) Total Bilirubin 0.4 MG/DL (0.2-1.0) Direct Bilirubin 0.2 MG/DL (0.0-0.2) Sodium Level 142 MEQ/L (136-145) Chloride Level 109 MEQ/L (98-107) Carbon Dioxide Level 27.8 MEQ/L (21.0-32.0) Anion Gap 5 MEQ/L (5-15) Estimat Glomerular Filtration Rate 111 ML/MIN (>89) Protein Corrected Calcium 8.2 MG/DL (8.5-10.1) Indirect Bilirubin 0.2 MG/DL (0.0-0.8) Neutrophils (%) (Auto) 78.3 % (16.0-70.0) Lymphocytes (%) (Auto) 12.0 % (9.0-44.0) Monocytes (%) (Auto) 9.3 % (0.0-8.0) Eosinophils (%) (Auto) 0.1 % (0.0-4.0) Basophils (%) (Auto) 0.3 % (0.0-2.0) Neutrophils # (Auto) 7.1 TH/MM3 (1.8-7.7) Lymphocytes # (Auto) 1.1 TH/MM3 (1.0-4.8) Monocytes # (Auto) 0.8 TH/MM3 (0-0.9) Eosinophils # (Auto) 0.0 TH/MM3 (0-0.4) Basophils # (Auto) 0.0 TH/MM3 (0-0.2) CBC Comment DIFF FINAL Differential Comment Test 08/27/17 09:30 08/27/17 17:55 08/27/17 22:00 08/28/17 04:30 Total Creatine Kinase 1101 U/L (39-308) Creatine Kinase MB 2.8 NG/ML (0.5-3.6) Creatine Kinase MB % 0.3 % (0.0-4.0) White Blood Count 10.2 TH/MM3 (4.0-11.0) 11.3 TH/MM3 (4.0-11.0) Red Blood Count 2.81 MIL/MM3 (4.50-5.90) 2.67 MIL/MM3 (4.50-5.90) Hemoglobin 8.8 GM/DL (13.0-17.0) 8.5 GM/DL (13.0-17.0) 8.4 GM/DL (13.0-17.0) Hematocrit 25.5 % (39.0-51.0) 24.4 % (39.0-51.0) 24.2 % (39.0-51.0) Mean Corpuscular Volume 90.6 FL (80.0-100.0) 90.9 FL (80.0-100.0) Mean Corpuscular Hemoglobin 31.4 PG (27.0-34.0) 31.4 PG (27.0-34.0) Mean Corpuscular Hemoglobin Concent 34.6 % (32.0-36.0) 34.5 % (32.0-36.0) Red Cell Distribution Width 15.4 % (11.6-17.2) 14.9 % (11.6-17.2) Platelet Count 116 TH/MM3 (150-450) 112 TH/MM3 (150-450) Mean Platelet Volume 8.0 FL (7.0-11.0) 7.9 FL (7.0-11.0) Neutrophils (%) (Auto) 78.2 % (16.0-70.0) 85.4 % (16.0-70.0) Lymphocytes (%) (Auto) 13.5 % (9.0-44.0) 6.5 % (9.0-44.0) Monocytes (%) (Auto) 8.0 % (0.0-8.0) 4.9 % (0.0-8.0) Eosinophils (%) (Auto) 0.1 % (0.0-4.0) 0.4 % (0.0-4.0) Basophils (%) (Auto) 0.2 % (0.0-2.0) 2.8 % (0.0-2.0) Neutrophils # (Auto) 8.0 TH/MM3 (1.8-7.7) 9.6 TH/MM3 (1.8-7.7) Lymphocytes # (Auto) 1.4 TH/MM3 (1.0-4.8) 0.7 TH/MM3 (1.0-4.8) Monocytes # (Auto) 0.8 TH/MM3 (0-0.9) 0.6 TH/MM3 (0-0.9) Eosinophils # (Auto) 0.0 TH/MM3 (0-0.4) 0.0 TH/MM3 (0-0.4) Basophils # (Auto) 0.0 TH/MM3 (0-0.2) 0.3 TH/MM3 (0-0.2) CBC Comment DIFF FINAL AUTO DIFF Differential Comment AUTO DIFF CONFIRMED Platelet Estimate LOW (NORMAL) Platelet Morphology Comment NORMAL (NORMAL) Prothrombin Time 10.6 SEC (9.8-11.6) Prothromb Time International Ratio 1.0 RATIO Activated Partial Thromboplast Time 26.8 SEC (24.3-30.1) Blood Urea Nitrogen 43 MG/DL (7-18) Creatinine 0.79 MG/DL (0.60-1.30) Random Glucose 116 MG/DL (74-106) Total Protein 5.5 GM/DL (6.4-8.2) Albumin 2.7 GM/DL (3.4-5.0) Calcium Level 8.0 MG/DL (8.5-10.1) Phosphorus Level 1.6 MG/DL (2.5-4.9) Magnesium Level 2.2 MG/DL (1.5-2.5) Alkaline Phosphatase 45 U/L (45-117) Aspartate Amino Transf (AST/SGOT) 42 U/L (15-37) Alanine Aminotransferase (ALT/SGPT) 22 U/L (12-78) Total Bilirubin 0.6 MG/DL (0.2-1.0) Sodium Level 147 MEQ/L (136-145) Potassium Level 3.6 MEQ/L (3.5-5.1) Chloride Level 116 MEQ/L (98-107) Carbon Dioxide Level 26.8 MEQ/L (21.0-32.0) Anion Gap 4 MEQ/L (5-15) Estimat Glomerular Filtration Rate 94 ML/MIN (>89) Test 08/28/17 13:15 08/28/17 19:20 08/29/17 05:00 08/29/17 08:30 Hemoglobin 8.4 GM/DL (13.0-17.0) 8.0 GM/DL (13.0-17.0) 8.0 GM/DL (13.0-17.0) Hematocrit 24.4 % (39.0-51.0) 23.7 % (39.0-51.0) 23.8 % (39.0-51.0) White Blood Count 18.9 TH/MM3 (4.0-11.0) Red Blood Count 2.52 MIL/MM3 (4.50-5.90) Mean Corpuscular Volume 94.5 FL (80.0-100.0) Mean Corpuscular Hemoglobin 31.9 PG (27.0-34.0) Mean Corpuscular Hemoglobin Concent 33.7 % (32.0-36.0) Red Cell Distribution Width 15.0 % (11.6-17.2) Platelet Count 115 TH/MM3 (150-450) Mean Platelet Volume 8.3 FL (7.0-11.0) Neutrophils (%) (Auto) 90.5 % (16.0-70.0) Lymphocytes (%) (Auto) 5.2 % (9.0-44.0) Monocytes (%) (Auto) 4.1 % (0.0-8.0) Eosinophils (%) (Auto) 0.1 % (0.0-4.0) Basophils (%) (Auto) 0.1 % (0.0-2.0) Neutrophils # (Auto) 17.1 TH/MM3 (1.8-7.7) Lymphocytes # (Auto) 1.0 TH/MM3 (1.0-4.8) Monocytes # (Auto) 0.8 TH/MM3 (0-0.9) Eosinophils # (Auto) 0.0 TH/MM3 (0-0.4) Basophils # (Auto) 0.0 TH/MM3 (0-0.2) CBC Comment DIFF FINAL Differential Comment Prothrombin Time 10.7 SEC (9.8-11.6) Prothromb Time International Ratio 1.1 RATIO Activated Partial Thromboplast Time 25.8 SEC (24.3-30.1) Blood Urea Nitrogen 28 MG/DL (7-18) Creatinine 0.81 MG/DL (0.60-1.30) Random Glucose 121 MG/DL (74-106) Total Protein 5.8 GM/DL (6.4-8.2) Albumin 2.7 GM/DL (3.4-5.0) Calcium Level 8.1 MG/DL (8.5-10.1) Phosphorus Level 2.0 MG/DL (2.5-4.9) Magnesium Level 2.3 MG/DL (1.5-2.5) Alkaline Phosphatase 57 U/L (45-117) Aspartate Amino Transf (AST/SGOT) 30 U/L (15-37) Alanine Aminotransferase (ALT/SGPT) 21 U/L (12-78) Total Bilirubin 0.5 MG/DL (0.2-1.0) Direct Bilirubin 0.3 MG/DL (0.0-0.2) Sodium Level 148 MEQ/L (136-145) Potassium Level 3.6 MEQ/L (3.5-5.1) Chloride Level 116 MEQ/L (98-107) Carbon Dioxide Level 25.1 MEQ/L (21.0-32.0) Anion Gap 7 MEQ/L (5-15) Estimat Glomerular Filtration Rate 91 ML/MIN (>89) Indirect Bilirubin 0.2 MG/DL (0.0-0.8) Blood Gas Puncture Site RT RADIAL Blood Gas Patient Temperature 98.6 Blood Gas HCO3 24 mmol/L (22-26) Blood Gas Base Excess 0.0 mmol/L (-2-2) Blood Gas Oxygen Saturation 91 % (90-100) Arterial Blood pH 7.43 (7.380-7.420) Arterial Blood Partial Pressure CO2 37 mmHg (38-42) Arterial Blood Partial Pressure O2 64 mmHg (61-120) Arterial Blood Oxygen Content 10.6 Vol % (12.0-20.0) Arterial Blood Carboxyhemoglobin 1.1 % (0-4) Arterial Blood Methemoglobin 1.3 % (0-2) Blood Gas Hemoglobin 8.3 G/DL (12.0-16.0) Oxygen Delivery Device Non-Rebreathing Mask Blood Gas Liter Flow 15 L/M Result Diagram: 08/29/17 0500 08/29/17 0500 Imaging Last Impressions Chest X-Ray 08/29/17 0000 Signed Impressions: Service Date/Time: Tuesday, August 29, 2017 08:36 - CONCLUSION: 1. Continued right-sided pneumothorax without tension. 2. Pulmonary edema. Marco Lloyd MD Abdomen Ultrasound 08/27/17 0000 Signed Impressions: Service Date/Time: Sunday, August 27, 2017 09:20 - CONCLUSION: Gallbladder wall thickening without stones. Cholecystitis is not excluded. Radionuclide imaging is recommended for further evaluation if clinically indicated. Marco Lloyd MD Head CT 08/24/17 2349 Signed Impressions: Service Date/Time: Friday, August 25, 2017 00:02 - CONCLUSION: There is a hypodense subdural collection with slight left to right shift identified. The appearance suggests a chronic subdural hematoma. Duncan Odom MD Procedures INTUBATION 08/25/17 Arterial line 08/25/17 Right subclavian line 08/25/17 Dialysis catheter 08/25/17 Chest tube, right, 08/29/17 . 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 Lives with 2 roommates. 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 Spiritual: Taoist background, willing to see a clinical safety specialist of similar background Legal: I don't believe the patient has capacity to make decisions at this time , as he is not oriented to day, date, month, or place, and he remains delusional regarding his own . He reports that he has 3 sons and no healthcare surrogate designation, so we are trying to continue to reach the sons who would be decision making proxies. I believe that a psychiatry evaluation will be useful. Ethical issues impacting care: None . Important Contacts In the record, it mentions a son rFanklyn Mitchell at [phone], but no answer and a voicemail on repeated attempts. Also in the record, "friend" Ross Oleary [phone], also no answer and no voicemail. . Prognosis The patient is quite debilitated, malnourished, appears to have been losing weight, and now is quite encephalopathic and delusional. Overall, his prognosis is quite guarded, and he would be appropriate for hospice services at this time if the goals become comfort oriented when decision-makers are found and involved. . Code Status: Full Code Plan * FULL CODE, at least until decision-makers can be found or the patient's encephalopathy clears enough to allow him to demonstrate capacity for making his own decisions. * DECISION-MAKING: The patient lacks capacity for decision-making, and it appears unlikely that he will regain that capacity. He initially reported that he has 3 sons and no healthcare surrogate designation, so we are continuing vigorously to reach the sons who would be decision making proxies. * SYMPTOMS: The patient has no obvious pain, and continues to have dyspnea, delusions, and now encephalopathy * GOALS: We are continuing to vigorously try to find family to talk to.. . Time Spent Total Floor Time (mins): 38 Face to Face Time (mins): 13 >50% Counseling/Coord of Care: Yes (d/w Dr. Olson and with RN) Attestation To help prompt me to consider important information that might be impacting today's encounter and assessment, information from prior notes written by myself or my colleagues may have been "brought forward" into today's note. My signature on this note, however, is an attestation that I personally performed the exam, history, and/or decision-making noted today, and, unless otherwise indicated, the interactions with patient, family, and staff as well as the review of records all occurred today. I also attest that the listed assessment and stated plan reflect my best clinical judgment today based on the combination of historical information, prior notes, and today's exam/ interactions. When time spent is documented, it refers only to time spent today by the signer, or if indicated, combined time spent today by collaborating physician/nurse practitioner. Alyce Montaño MD Aug 29, 2017 13:38
--- NOTE | 2017-08-29 13:49 | HHI.GIFU ---
Subjective Remarks Resting in bed in NAD on partial rebreather. Per RN not eating much. had Pneumothorax over night, CT placed right side. (Cecily Oh) Objective Vitals I&O Vital Signs Date Time Temp Pulse Resp B/P (MAP) Pulse Ox O2 Delivery O2 Flow Rate FiO2 08/29/17 13:12 95 Partial Rebreather 13.00 08/29/17 12:00 96 Partial Non-Rebreather 15.00 08/29/17 12:00 98.9 78 20 111/58 (75) 96 08/29/17 12:00 78 08/29/17 10:00 129 08/29/17 09:56 31 08/29/17 08:00 98.7 110 24 132/66 (88) 93 08/29/17 08:00 110 08/29/17 08:00 93 Partial Non-Rebreather 15.00 08/29/17 07:46 128 135/69 08/29/17 06:00 130 08/29/17 04:00 93 Partial Non-Rebreather 08/29/17 04:00 116 08/29/17 04:00 98.8 116 24 133/70 (91) 93 08/29/17 03:43 125 111/57 08/29/17 02:00 120 08/29/17 00:00 100 Partial Non-Rebreather 08/29/17 00:00 99.3 133 18 129/59 (82) 100 08/29/17 00:00 133 08/28/17 23:00 141 19 104/72 (83) 95 08/28/17 22:45 143 19 113/79 (90) 92 08/28/17 22:30 137 36 115/69 (84) 97 08/28/17 22:15 134 23 111/72 (85) 97 08/28/17 22:11 144 125/67 08/28/17 22:00 129 08/28/17 20:02 92 Partial Rebreather 15.00 08/28/17 20:00 98.2 121 30 124/61 (82) 90 08/28/17 20:00 121 08/28/17 20:00 90 Partial Non-Rebreather 08/28/17 19:50 90 Simple Mask 10.00 08/28/17 18:00 144 08/28/17 16:00 138 2/6/18 16:00 98.0 138 16 138/70 (92) 93 08/28/17 16:00 93 Nasal Cannula 5.00 08/28/17 14:55 138 18 121/64 (83) 94 08/28/17 14:55 123 08/28/17 14:55 Nasal Cannula 5 08/28/17 14:45 133 18 115/64 (81) 93 08/28/17 14:30 135 18 148/65 (92) 93 08/28/17 14:15 131 18 156/60 (92) 93 08/28/17 14:05 115 08/28/17 14:05 Nasal Cannula 5 08/28/17 14:05 97.8 123 18 151/82 (105) 94 08/28/17 14:00 120 I/O 08/28/17 08/28/17 08/28/17 08/29/17 08/29/17 08/29/17 07:00 15:00 23:00 07:00 15:00 23:00 Intake Total 1057 ml 680 ml 1150 ml 1116 ml 271 ml Output Total 800 ml 1350 ml 1232 ml Balance 257 ml 680 ml -200 ml -116 ml 271 ml Intake Oral 100 ml 100 ml 300 ml IV Total 957 ml 680 ml 1000 ml 816 ml 271 ml Other 50 ml Output Urine Total 800 ml 1350 ml 1100 ml Chest Tube Drainage Total 132 ml # Bowel Movements 2 0 0 Laboratory Laboratory Tests Test 08/28/17 19:20 08/29/17 05:00 08/29/17 08:30 Hemoglobin 8.0 8.0 Hematocrit 23.7 23.8 White Blood Count 18.9 Red Blood Count 2.52 Mean Corpuscular Volume 94.5 Mean Corpuscular Hemoglobin 31.9 Mean Corpuscular Hemoglobin Concent 33.7 Red Cell Distribution Width 15.0 Platelet Count 115 Mean Platelet Volume 8.3 Neutrophils (%) (Auto) 90.5 Lymphocytes (%) (Auto) 5.2 Monocytes (%) (Auto) 4.1 Eosinophils (%) (Auto) 0.1 Basophils (%) (Auto) 0.1 Neutrophils # (Auto) 17.1 Lymphocytes # (Auto) 1.0 Monocytes # (Auto) 0.8 Eosinophils # (Auto) 0.0 Basophils # (Auto) 0.0 CBC Comment DIFF FINAL Differential Comment Prothrombin Time 10.7 Prothromb Time International Ratio 1.1 Activated Partial Thromboplast Time 25.8 Blood Urea Nitrogen 28 Creatinine 0.81 Random Glucose 121 Total Protein 5.8 Albumin 2.7 Calcium Level 8.1 Phosphorus Level 2.0 Magnesium Level 2.3 Alkaline Phosphatase 57 Aspartate Amino Transf (AST/SGOT) 30 Alanine Aminotransferase (ALT/SGPT) 21 Total Bilirubin 0.5 Direct Bilirubin 0.3 Sodium Level 148 Potassium Level 3.6 Chloride Level 116 Carbon Dioxide Level 25.1 Anion Gap 7 Estimat Glomerular Filtration Rate 91 Indirect Bilirubin 0.2 Blood Gas Puncture Site RT RADIAL Blood Gas Patient Temperature 98.6 Blood Gas HCO3 24 Blood Gas Base Excess 0.0 Blood Gas Oxygen Saturation 91 Arterial Blood pH 7.43 Arterial Blood Partial Pressure CO2 37 Arterial Blood Partial Pressure O2 64 Arterial Blood Oxygen Content 10.6 Arterial Blood Carboxyhemoglobin 1.1 Arterial Blood Methemoglobin 1.3 Blood Gas Hemoglobin 8.3 Oxygen Delivery Device Non-Rebreathing Mask Blood Gas Liter Flow 15 Date/Time Source Procedure Growth Status 08/25/17 14:30 Urine Clean Catch Urine Culture - Final NO GROWTH IN 48 HOURS. Complete Imaging Last Impressions Chest X-Ray 08/29/17 0000 Signed Impressions: Service Date/Time: Tuesday, August 29, 2017 08:36 - CONCLUSION: 1. Continued right-sided pneumothorax without tension. 2. Pulmonary edema. Marco Lloyd MD Abdomen Ultrasound 08/27/17 0000 Signed Impressions: Service Date/Time: Sunday, August 27, 2017 09:20 - CONCLUSION: Gallbladder wall thickening without stones. Cholecystitis is not excluded. Radionuclide imaging is recommended for further evaluation if clinically indicated. Marco Lloyd MD Head CT 08/24/17 2349 Signed Impressions: Service Date/Time: Friday, August 25, 2017 00:02 - CONCLUSION: There is a hypodense subdural collection with slight left to right shift identified. The appearance suggests a chronic subdural hematoma. Duncan Odom MD Physical Exam HEENT: normocephalic; atraumatic; no jaundice. partial rebreather CHEST: rhonchi CT right side CARDIAC: RRR ABDOMEN: Soft, nondistended, nontender; no hepatosplenomegaly; bowel sounds are present in all four quadrants. EXTREMITIES: No clubbing, cyanosis, +BUE edema SKIN: no rash; no jaundice. 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 UGIB. salicylate overdose. blood pending, US abd pending EGD and colonoscopy 08/2016 with finding esophageal lesions, lesion appendiceal orifice, lymphocytic colitis. Path esophageal lesion was ulcerative esophagitis. Path sigmoid polyp adenoma. - AF w/ RVR, JONAH, rhabdomyolysis, salicylate overdose per CCM 08/29/17 - s/p EGD and dilatation, found ulcers, esophageal stricture, ulcers oropharynx. psych now following. bx pending US showed gallbladder wall thickening, no stones. psych now following, recommend inpt tx when medically stable HH stable, no bleeding PLAN - await bx - liquid diet - monitor labs - supportive care - further recs to follow pt seen by myself and Dr Villalobos and this note is written on her behalf (Cecily Oh) Physician Comments seen, examined agree with above agree with palliative care if recovers consider hida scan supportive care overall poor prognosis gi will sign off call us as needed (Carmen Villalobos MD) Cecily Oh Aug 29, 2017 13:49 Carmen Villalobos MD Aug 29, 2017 18:28
--- NOTE | 2017-08-29 19:42 | ECHRPT ---
Indication: a-fib CONCLUSIONS The left ventricular systolic function is low normal with an estimated ejection fraction in the rang e of 50- 55%. Mild concentric left ventricular hypertrophy. Mild mitral valve regurgitation. Mild aortic valve regurgitation. There is mild to moderate tricuspid valve regurgitation. BP: 152 / 65 HR: 111 Rhythm: Atrial fibrillation MEASUREMENTS (Male / Female) Normal Values Technical Quality:Good 2D ECHO LV Diastolic Diameter PLAX 4.5 cm 4.2 - 5.9 / 3.9 - 5.3 cm LV Systolic Diameter PLAX 3.6 cm IVS Diastolic Thickness 1.2 cm 0.6 - 1.0 / 0.6 - 0.9 cm LVPW Diastolic Thickness 1.7 cm 0.6 - 1.0 / 0.6 - 0.9 cm LV Relative Wall Thickness 0.6 RV Internal Dim ED PLAX 2.7 cm LVOT Diameter 1.8 cm LA Systolic Diameter LX 5.1 cm 3.0 - 4.0 / 2.7 - 3.8 cm LV Ejection Fraction MOD 4C 50.7 % LV Ejection Fraction 4C AL 50.9 % M-MODE Aortic Root Diameter MM 3.1 cm LA Systolic Diameter MM 5.1 cm LA Ao Ratio MM 1.6 AV Cusp Separation MM 1.4 cm DOPPLER AV Peak Velocity 144.0 cm/s AV Peak Gradient 8.3 mmHg AI Peak Velocity 365.0 cm/s AI Peak Gradient 53.3 mmHg AI Pressure Half Time 737.0 ms LVOT Peak Velocity 103.0 cm/s LVOT Peak Gradient 4.2 mmHg AV Area Cont Eq pk 1.8 cm MV Area PHT 3.9 cm TR Peak Velocity 358.0 cm/s TR Peak Gradient 51.3 mmHg Right Atrial Pressure 10.0 mmHg Pulmonary Artery Systolic Pressu 61.3 mmHg Right Ventricular Systolic Press 61.3 mmHg PV Peak Velocity 95.0 cm/s PV Peak Gradient 3.6 mmHg FINDINGS LEFT VENTRICLE The left ventricular systolic function is low normal with an estimated ejection fraction in the rang e of 50- 55%. Mild concentric left ventricular hypertrophy. RIGHT VENTRICLE Normal right ventricular size and systolic function. LEFT ATRIUM The left atrial size is moderately dilated. RIGHT ATRIUM The right atrial size is moderately dilated. ATRIAL SEPTUM Normal atrial septal thickness. AORTA The aortic root and proximal ascending aorta are normal in size on limited imaging. MITRAL VALVE Structurally normal mitral valve. Mild mitral valve regurgitation. No mitral valve stenosis. AORTIC VALVE Trileaflet aortic valve. Diffuse calcification of the aortic valve. Mild aortic valve regurgitation. TRICUSPID VALVE Structurally normal tricuspid valve. There is mild to moderate tricuspid valve regurgitation. The estimated pulmonary arterial pressure is 61.3 mmHg. PULMONARY VALVE No pulmonary valve regurgitation or stenosis. VESSELS The inferior vena cava is normal in size. PERICARDIUM No pericardial effusion. Micah Valladares DO (Electronically Signed) Final Date:29 August 2017 19:41
--- NOTE | 2017-08-29 20:09 | RADRPT ---
EXAM DATE/TIME: 08/29/2017 19:00 [facility] COMPARISON: CHEST SINGLE AP, August 29, 2017, 8:36. INDICATIONS : Short of breath, rule out pneumothroax. MEDICAL HISTORY : None. SURGICAL HISTORY : None. ENCOUNTER: Subsequent ACUITY: 1 week PAIN SCORE: 0/10 LOCATION: Bilateral chest FINDINGS: There continues to be a right apical pneumothorax with approximately 4 cm of separation. This is abou t the same compared to the prior exam. A small right-sided chest tube remains in place. There continu es to be diffuse bilateral interstitial and airspace infiltrates. This pattern is not significant lawrence nge compared to the prior examination. The heart size is stable. CONCLUSION: 1. No significant change in the right apical pneumothorax. 2. Small right-sided chest remains in place. 3. No significant change in the bilateral pulmonary interstitial and airspace infiltrates. Pavel Alvarenga MD on August 29, 2017 at 20:05 Board Certified Radiologist. This report was verified electronically.
[2017-08-30] VITALS (13 sets, daily range): BP systolic 101–128; BP diastolic 64–76; PULSE 87–129; RESP 13–36; TEMP 97.7–99.2; O2SAT 91–99
[2017-08-30] MEDS: methylPREDNISolone SOD SUCC 40 MG/1 ML VIAL IV PUSH SCH ×3 (00:30→18:00)
[2017-08-30] MEDS: MORPHINE SULFATE 4 MG/ML INJ IV PUSH PRN ×2 (02:28→23:47)
[2017-08-30] MEDS: CHLORHEXIDINE GLUCONATE 2 % 1 PACK (2 CLOTHS)(taper/protocol) TOPICAL SCH (04:00)
[2017-08-30] MEDS: DEXTROSE 5% IN WATE 1000ML INJ 1,000 ML IV SCH ×2 (04:11→23:46)
[2017-08-30] MEDS: INSULIN NovoLIN REGULAR SUPPLEMENTAL SCALE SQ SCH ×4 (05:19→23:46)
[2017-08-30 05:20] LABS: PROTHROMBIN TIME - PATIENT 10.2 SEC (9.8-11.6)
[2017-08-30 05:38] LABS: ALBUMIN 2.6 GM/DL (3.4-5.0); AUTOMATED NEUTROPHIL # 12.2 TH/MM3 (1.8-7.7); BASOPHIL % 0.2 % (0.0-2.0); BICARBONATE 26.4 MEQ/L (21.0-32.0); CALCIUM 8.4 MG/DL (8.5-10.1); CREATININE 0.79 MG/DL (0.60-1.30); HEMATOCRIT 23.4 % (39.0-51.0); LYMPH % 4.6 % (9.0-44.0); LYMPHOCYTE # 0.6 TH/MM3 (1.0-4.8); MAGNESIUM 2.5 MG/DL (1.5-2.5); MEAN CELL VOLUME 93.5 FL (80.0-100.0); MEAN CORPUSCULAR HEMOGLOBIN 31.8 PG (27.0-34.0); MEAN PLATELET VOLUME 8.7 FL (7.0-11.0); MONO % 2.4 % (0.0-8.0); MONOCYTE # 0.3 TH/MM3 (0-0.9); NEUT % 92.8 % (16.0-70.0); PLATELET COUNT 130 TH/MM3 (150-450); RED CELL DISTRIBUTION WIDTH 15.2 % (11.6-17.2); WHITE BLOOD COUNT 13.1 TH/MM3 (4.0-11.0)
[2017-08-30 05:39] LABS: DIRECT BILIRUBIN ADULT 0.2 MG/DL (0.0-0.2); PHOSPHORUS 2.3 MG/DL (2.5-4.9)
[2017-08-30 05:41] LABS: INDIRECT BILIRUBIN 0.1 MG/DL (0.0-0.8); TOTAL BILIRUBIN ADULT 0.3 MG/DL (0.2-1.0); TOTAL PROTEIN 6.1 GM/DL (6.4-8.2)
[2017-08-30] MEDS: PANTOPRAZOLE INJ 80 MG in SODIUM CHLORIDE 0.9% INJ 100 ML IV SCH (06:28)
[2017-08-30] MEDS: DILTIAZEM HCL 60 MG TAB PO SCH ×4 (06:28→23:46)
--- NOTE | 2017-08-30 07:44 | HHI.CCPN ---
Subjective Remarks/Hospital Course Hospital Course: This is an 82-year-old male with a past medical history of hypertension and hyperlipidemia who was brought to the emergency department after being found altered. Per hospital records, the patient had been declining for the last 2-3 days. He was brought in the emergency department where he was only oriented to self. He continued to decline and became unresponsive. ABG is significant for severe combined acidosis: 7.13/52/78. salicylate level is 72.6, ck 1200, Cr 1.1 , wbc 12.4. I was called by Dr. Yanes about emergent transfer to the ICU. the patient came into the ICU during my conversation and I immediately evaluated the patient who at this point was unresponsive and agonal. I emergently intubated the patient (see separate procedure note for details). I then placed central line and dialysis catheter emergently, as well as arterial line for serial ABGs. I discussed the case then with Dr. Nagel who agrees with emergent dialysis. Subjective: 08/26: salicylate level still elevated, although downtrending. CKs still elevated and uptrended throughout the day. uop marginal at best. more awake than yesterday. discussed with poison control, ok to stop trending salicylate levels. 08/27 Patient is on 4L oxygen. Had large black tarry stool BM this morning Hgb dropped 7.3 from 11.6 yesterday. Afebrile. On Cardizem drip 10mg/hr. ASA level 10.5 this morning. 08/28 Patient is lying in bed in NAD. s/p transfusion 2u PRBC yesterday Hgb 8.4 this morning. Refused EGD yesterday. Off Cardizem drip. 08/29 Patient had right sided PTX last night s/p CT placement with reexpansion of right lung post CT placement. Started on Amio drip last night for Afib RVR 08/30 Patient is on partial NRB. Afebrile. Objective Vital Signs Date Time Temp Pulse Resp B/P (MAP) Pulse Ox O2 Delivery O2 Flow Rate FiO2 08/30/17 06:00 101 08/30/17 04:00 97.8 28 101/64 (76) 95 08/30/17 04:00 Partial Non-Rebreather 13.00 08/26/17 12:00 40 Intake and Output 08/30/17 08/30/17 08/31/17 08:00 16:00 00:00 Intake Total 1240 ml Output Total 1500 ml Balance -260 ml Result Diagram: 08/30/17 0340 08/30/17 0340 Other Results Laboratory Tests Test 08/29/17 08:30 08/30/17 03:40 Blood Gas Puncture Site RT RADIAL Blood Gas Patient Temperature 98.6 Blood Gas HCO3 24 mmol/L Blood Gas Base Excess 0.0 mmol/L Blood Gas Oxygen Saturation 91 % Arterial Blood pH 7.43 Arterial Blood Partial Pressure CO2 37 mmHg Arterial Blood Partial Pressure O2 64 mmHg Arterial Blood Oxygen Content 10.6 Vol % Arterial Blood Carboxyhemoglobin 1.1 % Arterial Blood Methemoglobin 1.3 % Blood Gas Hemoglobin 8.3 G/DL Oxygen Delivery Device Non-Rebreathing Mask Blood Gas Liter Flow 15 L/M White Blood Count 13.1 TH/MM3 Red Blood Count 2.50 MIL/MM3 Hemoglobin 8.0 GM/DL Hematocrit 23.4 % Mean Corpuscular Volume 93.5 FL Mean Corpuscular Hemoglobin 31.8 PG Mean Corpuscular Hemoglobin Concent 34.0 % Red Cell Distribution Width 15.2 % Platelet Count 130 TH/MM3 Mean Platelet Volume 8.7 FL Neutrophils (%) (Auto) 92.8 % Lymphocytes (%) (Auto) 4.6 % Monocytes (%) (Auto) 2.4 % Eosinophils (%) (Auto) 0.0 % Basophils (%) (Auto) 0.2 % Neutrophils # (Auto) 12.2 TH/MM3 Lymphocytes # (Auto) 0.6 TH/MM3 Monocytes # (Auto) 0.3 TH/MM3 Eosinophils # (Auto) 0.0 TH/MM3 Basophils # (Auto) 0.0 TH/MM3 CBC Comment DIFF FINAL Differential Comment Prothrombin Time 10.2 SEC Prothromb Time International Ratio 1.0 RATIO Activated Partial Thromboplast Time 25.3 SEC Blood Urea Nitrogen 27 MG/DL Creatinine 0.79 MG/DL Random Glucose 125 MG/DL Total Protein 6.1 GM/DL Albumin 2.6 GM/DL Calcium Level 8.4 MG/DL Phosphorus Level 2.3 MG/DL Magnesium Level 2.5 MG/DL Alkaline Phosphatase 65 U/L Aspartate Amino Transf (AST/SGOT) 34 U/L Alanine Aminotransferase (ALT/SGPT) 26 U/L Total Bilirubin 0.3 MG/DL Direct Bilirubin 0.2 MG/DL Sodium Level 146 MEQ/L Potassium Level 4.2 MEQ/L Chloride Level 113 MEQ/L Carbon Dioxide Level 26.4 MEQ/L Anion Gap 7 MEQ/L Estimat Glomerular Filtration Rate 94 ML/MIN Indirect Bilirubin 0.1 MG/DL Imaging Last Impressions Chest X-Ray 08/29/17 1900 Signed Impressions: Service Date/Time: Tuesday, August 29, 2017 19:00 - CONCLUSION: 1. No significant change in the right apical pneumothorax. 2. Small right-sided chest remains in place. 3. No significant change in the bilateral pulmonary interstitial and airspace infiltrates. Pavel Alvarenga MD Abdomen Ultrasound 08/27/17 0000 Signed Impressions: Service Date/Time: Sunday, August 27, 2017 09:20 - CONCLUSION: Gallbladder wall thickening without stones. Cholecystitis is not excluded. Radionuclide imaging is recommended for further evaluation if clinically indicated. Marco Lloyd MD Head CT 08/24/17 2349 Signed Impressions: Service Date/Time: Friday, August 25, 2017 00:02 - CONCLUSION: There is a hypodense subdural collection with slight left to right shift identified. The appearance suggests a chronic subdural hematoma. Duncan Odom MD Objective Remarks GENERAL: Elderly frail cachectic male, lying in bed in NAD HEENT: Normocephalic. Atraumatic. Pupils equal, round, reactive, conjugate. Mucous membranes are still dry. NECK: Trachea is midline. There is no JVD. CHEST: PRVC, 40% fio2, clear bilaterally. CARDIOVASCULAR: Tachycardic rate, irregularly irregular rhythm. afib by tele. ABDOMEN: Soft, scaphoid nontender, nondistended. No guarding. MUSCULOSKELETAL: Pulses 2+. No peripheral edema. NEUROLOGICAL: Awake A/P Assessment and Plan Plan by systems: Neurologic: Psychosis Toxic encephalopathy- resolved - salicylate subtherapeutic now. 10.5 yesterday -s/p emergent dialysis 2/3 - neuro checks -Psych is following Respiratory: Acute hypoxic and hypercarbic respiratory failure- Extubated 2/4 ?COPD Right sided PTX s/p CT placement Continue with oxygen keep sat >92% Bronchodilators, solumederol 40mg Q8 Monitor CT output: 169 ml in 24 hrs Repeat CXR from last night No significant change in the right apical pneumothorax. Small right-sided chest remains in place. bilateral pulmonary interstitial and airspace infiltrates. CXR showed persistent right sided PTX discussed with Dr. Whitfield IR will place chest tube. Patient is unable to give consent for procedure. It is medically necessary to proceed with chest tube placement. Consult CTS Cardiovascular: Atrial fibrillation with rapid ventricular response On Cardizem 60mg Q6, Lopressor 25mg Q12 monitor HR and BP keep MAP>65mmHG Echo showed EF 50-55% Renal: Acute kidney injury-imprving Acute rhabdomyolysis -Monitor renal function, I/O's, electrolytes replacement per protocol. -s/p Emergent dialysis 08/25 IVF D5W@42ml/hr ,diurese with Lasix 40mg x1 . FEN/GI: GI bleed Anemia 2nd acute blood loss Severe acute protein calorie malnutrition --s/p EGD 08/28: Two ulcers in antrum /pyloric channel-clean base-biopsy gastritis antrum-biopsy duodenitis duodenal bulb-biopsy ,stricture distal esophagus-biopsys/p dilatation, esophagitis - GI is following Dr. Villalobos, on Protonix drip -s/p Transfusion 2units PRBC on 08/27. US abdomen: Gallbladder wall thickening without stones On full liquid diet Heme Monitor CBC, coags-s/p transfusion 2u PRBC / ID Monitor for signs of infections ( Fever, WBC) on Rocephin follow up on urine cx Endocrine: hyperglycemia of critical illness SSI q6h med scale Prophylaxis: GI Prophylaxis Pepcid DVT Prophylaxis -- SCDs history of chronic subdurals, not on AC prophylaxis given GI bleed and anemia requiring blood transfusion . Lines: 2/3: right SC TLC 2/3: chery. Dispo: remain in ICU. Palliative care is following Level 2 Eddie Barr MD Aug 30, 2017 07:44
[2017-08-30] MEDS ORDERED: FUROSEMIDE 40 MG/4 ML VIAL IV PUSH ONE (08:00)
--- NOTE | 2017-08-30 08:53 | RADRPT ---
EXAM DATE/TIME: 08/30/2017 07:42 [facility] COMPARISON: CHEST SINGLE AP, August 29, 2017, 19:00. INDICATIONS : Short of breath MEDICAL HISTORY : Hypercholesterolemia. Benign prostatic hyperplasia, (BPH) Afib. Melanoma. Insomnia SURGICAL HISTORY : Eye surgery. Right nare removal. Pins to left sholder ENCOUNTER: Subsequent ACUITY: 1 week PAIN SCORE: 0/10 LOCATION: chest FINDINGS: The examination demonstrates a right subclavian central venous catheter. The catheters in good positi on. There is a small bore chest tube on the right. There is continued moderate size right pneumothorax. T here is subcutaneous emphysema. The pneumothorax and subcutaneous emphysema have mildly increased whe n compared to previous study dated 08/29/17. There is diffuse infiltrate in the lungs bilaterally. The osseous structures appear grossly intact. CONCLUSION: 1. The right-sided pneumothorax has increased in size compared to previous exam. There is a small bor e chest tube in place on the right. 2. Continued bilateral infiltrates. Devin Sidhu MD on August 30, 2017 at 8:49 Board Certified Radiologist. This report was verified electronically.
[2017-08-30] MEDS: RESP: ALBUTEROL 2.5 MG/IPRATROPIUM 0.5 MG NEB (PRN) INH ×2 (09:08→15:44)
[2017-08-30] MEDS: QUEtiapine FUMARATE 25 MG TAB PO SCH ×2 (09:27→12:00)
[2017-08-30] MEDS: METOPROLOL TARTRATE 25 MG TAB PO SCH ×2 (09:27→20:56)
[2017-08-30] MEDS: PANTOPRAZOLE SODIUM 40 MG VIAL IV PUSH SCH ×2 (09:28→20:56)
[2017-08-30] MEDS: SODIUM CHLORIDE 0.9% FLUSH 10 ML FLUSH IV FLUSH SCH ×2 (09:28→20:56)
[2017-08-30] MEDS: cefTRIAXone INJ 1,000 MG in SODIUM CHLORIDE 0.9% INJ 100 ML IV SCH (09:28)
--- NOTE | 2017-08-30 11:52 | PD.RAD ---
Radiology Note Patient has right sided ptx with a bedside placed chest tube early this week. Increasing ptx on recent cxr. Patient is symptomatic with decreased sats on non -rebreather face mask. Discussed with the ICU cap machine operator, Dr. Olson who has requested urgent fluoro guided placement of a new chest tube for the same. 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 Unable to contact next of kin. Because of situation, procedure was deemed emergent by Dr. Olson and myself and we will proceed accordingly. Mega Whitfield MD Aug 30, 2017 11:52
--- NOTE | 2017-08-30 12:25 | PD.RAD ---
Post Procedure Progress Note Pre Procedure Diagnosis: (1) Pneumothorax on right Post Procedure Diagnosis: (1) Pneumothorax on right Procedure Date: Aug 30, 2017 Supervising Radiologist: Mega Whitfield Proceduralist/Assist: Emory Sarah, RT(R), Lilly Carl RT(R) Anesthesia: Local, Analgesia Plan of Activity Patient to Unit: Nursing Unit Patient Condition: Fair See PACS Report for procedural detail/treatment Drainage Procedure Procedure 1 Imaging Guidance: Fluoroscopy Procedure Type: Chest Tube Non-Tunneled Procedure: Placement Sami: 10 Drainage: Pleurovac (40 cm H2O) Findings: Existing chest tube mid right chest with large ptx. New tube placed in apex of hemithorax with re-expansion of lung. Existing tube removed. Mega Whitfield MD Aug 30, 2017 12:24
--- NOTE | 2017-08-30 13:34 | RADRPT ---
EXAM DATE/TIME: 08/30/2017 11:20 [facility] COMPARISON: No previous studies available for comparison. INDICATIONS : Patient with right pneumothorax in need of chest tube placement. MEDICAL HISTORY : HTN, HLD, A-Fib, BPH, Esophagitis, CAD, Colon polyps, Colitis SURGICAL HISTORY : Colonoscopy with biopsy, EGD with biopsy ENCOUNTER: Initial ACUITY: 4 - 6 days PAIN SCORE: 0/10 FLUORO TIME: 2.1 minutes IMAGE SERIES: 3 SEDATION TIME: 30 minutes MEDICATION(S): 1.) 50 mcg fentanyl (Sublimaze) IV DEVICE(S): 1.) 10 [place] non-locking catheter [place] PROCEDURE : 1. Fluoroscopically guided chest tube placement. 2. Conscious sedation with continuous EKG and oximetry monitoring. The risks, benefits and alternatives to the procedure were explained and verbal and written consent w as obtained. The site was prepped in sterile fashion. Full sterile technique was used, including ca p, mask, sterile gloves and gown and a large sterile sheet. Hand hygiene and 2% chlorhexidine and/or betadine/alcohol prep was utilized per protocol for cutaneous antisepsis. The skin and subcutaneous tissues were infiltrated with local anesthetic solution. With fluoroscopic guidance the chest was punctured between the first and second interspace and the pr escribed catheter was placed in the lung apex. Wall suction was applied. Post procedure images demon strate satisfactory position of the tube. The catheter was sutured in place and a Percu-Stay was adalid lied. Patient's previously placed chest tube in the mid lateral right hemithorax was removed. Conscious sedation was performed with the prescribed dosages and duration as above in the presence of an independent trained radiology nurse to assist in the monitoring of the patient. EKG and oximetry remained stable throughout the procedure. The patient tolerated the procedure well and there were n o complications. The patient was sent to post anesthesia recovery in stable condition. CONCLUSION: Uncomplicated chest tube placement as above. Mega Whitfield MD on August 30, 2017 at 13:31 Board Certified Radiologist. This report was verified electronically.
--- NOTE | 2017-08-30 13:39 | RADRPT ---
EXAM DATE/TIME: 08/30/2017 12:55 [facility] COMPARISON: No previous studies available for comparison. INDICATIONS : Post chest tube placement MEDICAL HISTORY : Hypercholesterolemia. Benign prostatic hyperplasia, (BPH) Afib, Melanoma. Insomnia SURGICAL HISTORY : Eye surgery. Right nare removal. Pins to left sholder ENCOUNTER: Subsequent ACUITY: 1 week PAIN SCORE: 0/10 LOCATION: chest FINDINGS: A single frontal expiratory view of the chest was performed. Large right-sided pneumothorax seen prev iously has almost completely resolved with only a very tiny right apical component measuring a few mi llimeters in depth. There may be a small left apicolateral pneumothorax as well again, only measuring a few millimeters in depth. Bilateral airspace disease, predominantly in the left upper low lung and right lower lung field. Hear t size is prominent. Subcutaneous and deep tissue emphysematous changes are seen over both hemithorac es, right greater than left. Right subclavian central venous catheter with the tip projecting over th e central venous system. CONCLUSION: 1. Previous large right-sided pneumothorax is completely resolved with a very tiny right apical compo nent measuring a few millimeters in depth. 2. There may be a small apical lateral pneumothorax on the left as well. Again, this only measures a few millimeters in depth. 3. Extensive subcutaneous and deep tissue emphysematous changes over the hemithoraces, right greater than left. 4. Bilateral airspace disease, predominantly in the left upper lung field and right lower lung field. 5. Cardiomegaly. Mega Whitfield MD on August 30, 2017 at 13:32 Board Certified Radiologist. This report was verified electronically.
--- NOTE | 2017-08-30 13:55 | HHI.HCPN ---
Reason for visit a. To assist with evaluation and management of symptoms including: Encephalopathy, delusions, pain b. To assist medical decision maker(s) with: better understanding of current medical conditions; weighing benefits/burdens of medical treatment options; making medical treatment decisions. . Subjective/Interval History INTERVAL NOTE: The patient remains on nonrebreather at 15 L. His oxygen saturation was 92%. However, today's chest x-ray looks like the pneumothorax is worse, and he is getting another chest tube. He remains lethargic, confused. I was able to reach his son Franklyn finally today, see below. . Family/friend interactions I was able to reach his son, Franklyn Mitchell, finally today, . He tells me that the patient was in fact 3 times, and that he left the 3 sons and their mother when the 3 were all very young. The youngest son, Ross , has been completely estranged from the patient for essentially his entire lifetime, and has had no contact at all, and Franklyn believes he would not want to have any contact at this time. The oldest son Trent and now son Franklyn, have had intermittent telephone contact with the patient over the last few years. Franklyn says Trent cannot be reached until this evening (I tried his number [phone] but there is no voicemail set up), and Franklyn will speak with Trent this evening regarding their options to be the decision-makers for the patient' s healthcare, regarding resuscitation status, and regarding further aggressive care versus transition to comfort measures. Franklyn says he will call me tomorrow morning. . Advance Directives Living Will: Never completed Health Care Surrogate: Never completed Durable Power of Education Intern: Never completed Objective Vital Signs Date Time Temp Pulse Resp B/P (MAP) Pulse Ox O2 Delivery O2 Flow Rate FiO2 08/30/17 06:00 101 08/30/17 04:00 97.8 90 28 101/64 (76) 95 08/30/17 04:00 95 Partial Non-Rebreather 13.00 08/30/17 04:00 90 08/30/17 02:00 91 08/30/17 00:00 98.3 89 14 117/76 (90) 99 08/30/17 00:00 89 08/30/17 00:00 100 Partial Non-Rebreather 13.00 08/29/17 22:00 98 08/29/17 21:18 98 Partial Rebreather 14.00 08/29/17 20:00 99 Partial Non-Rebreather 13.00 08/29/17 20:00 118 08/29/17 20:00 98.3 118 16 123/63 (83) 99 08/29/17 18:00 110 08/29/17 16:00 92 Partial Non-Rebreather 13.00 08/29/17 16:00 97.2 115 28 118/61 (80) 93 08/29/17 16:00 115 08/29/17 14:00 105 Intake & Output 08/30/17 08/30/17 07:00 19:00 Intake Total 1340 ml Output Total 1500 ml Balance -160 ml Intake Oral 240 ml IV Total 1100 ml Output Urine Total 1500 ml # Bowel Movements 0 Physical Exam CONSTITUTIONAL/GENERAL: This is a disheveled, elderly, weak patient, in no apparent distress, lethargic, O2 nonrebreather mask in place. CARDIOVASCULAR: Irregular rhythm without murmurs, gallops, or rubs. No JVD. Peripheral pulses diminished. RESPIRATORY/CHEST: Symmetric, unlabored respirations. Mild wheezing bilateral, scattered rhonchi GASTROINTESTINAL: Abdomen soft, non-tender, nondistended. No hepato-splenomegaly , or palpable masses. No guarding. Bowel sounds present. GENITOURINARY: Without palpable bladder distension. Ansari catheter in place. MUSCULOSKELETAL: Extremities without clubbing, cyanosis, or edema. No joint tenderness or effusion noted. No calf tenderness. No mottling or clubbing. NEUROLOGICAL: Remains lethargic today, opens eyes but minimally verbal PSYCHIATRIC: No obvious anxiety, depression, psychosis, hallucinations at this time. Has been consistently delusional about his own . . Diagnostic Tests Laboratory Laboratory Tests Test 08/27/17 17:55 08/27/17 22:00 08/28/17 04:30 08/28/17 13:15 White Blood Count 10.2 TH/MM3 (4.0-11.0) 11.3 TH/MM3 (4.0-11.0) Red Blood Count 2.81 MIL/MM3 (4.50-5.90) 2.67 MIL/MM3 (4.50-5.90) Hemoglobin 8.8 GM/DL (13.0-17.0) 8.5 GM/DL (13.0-17.0) 8.4 GM/DL (13.0-17.0) 8.4 GM/DL (13.0-17.0) Hematocrit 25.5 % (39.0-51.0) 24.4 % (39.0-51.0) 24.2 % (39.0-51.0) 24.4 % (39.0-51.0) Mean Corpuscular Volume 90.6 FL (80.0-100.0) 90.9 FL (80.0-100.0) Mean Corpuscular Hemoglobin 31.4 PG (27.0-34.0) 31.4 PG (27.0-34.0) Mean Corpuscular Hemoglobin Concent 34.6 % (32.0-36.0) 34.5 % (32.0-36.0) Red Cell Distribution Width 15.4 % (11.6-17.2) 14.9 % (11.6-17.2) Platelet Count 116 TH/MM3 (150-450) 112 TH/MM3 (150-450) Mean Platelet Volume 8.0 FL (7.0-11.0) 7.9 FL (7.0-11.0) Neutrophils (%) (Auto) 78.2 % (16.0-70.0) 85.4 % (16.0-70.0) Lymphocytes (%) (Auto) 13.5 % (9.0-44.0) 6.5 % (9.0-44.0) Monocytes (%) (Auto) 8.0 % (0.0-8.0) 4.9 % (0.0-8.0) Eosinophils (%) (Auto) 0.1 % (0.0-4.0) 0.4 % (0.0-4.0) Basophils (%) (Auto) 0.2 % (0.0-2.0) 2.8 % (0.0-2.0) Neutrophils # (Auto) 8.0 TH/MM3 (1.8-7.7) 9.6 TH/MM3 (1.8-7.7) Lymphocytes # (Auto) 1.4 TH/MM3 (1.0-4.8) 0.7 TH/MM3 (1.0-4.8) Monocytes # (Auto) 0.8 TH/MM3 (0-0.9) 0.6 TH/MM3 (0-0.9) Eosinophils # (Auto) 0.0 TH/MM3 (0-0.4) 0.0 TH/MM3 (0-0.4) Basophils # (Auto) 0.0 TH/MM3 (0-0.2) 0.3 TH/MM3 (0-0.2) CBC Comment DIFF FINAL AUTO DIFF Differential Comment AUTO DIFF CONFIRMED Platelet Estimate LOW (NORMAL) Platelet Morphology Comment NORMAL (NORMAL) Prothrombin Time 10.6 SEC (9.8-11.6) Prothromb Time International Ratio 1.0 RATIO Activated Partial Thromboplast Time 26.8 SEC (24.3-30.1) Blood Urea Nitrogen 43 MG/DL (7-18) Creatinine 0.79 MG/DL (0.60-1.30) Random Glucose 116 MG/DL (74-106) Total Protein 5.5 GM/DL (6.4-8.2) Albumin 2.7 GM/DL (3.4-5.0) Calcium Level 8.0 MG/DL (8.5-10.1) Phosphorus Level 1.6 MG/DL (2.5-4.9) Magnesium Level 2.2 MG/DL (1.5-2.5) Alkaline Phosphatase 45 U/L (45-117) Aspartate Amino Transf (AST/SGOT) 42 U/L (15-37) Alanine Aminotransferase (ALT/SGPT) 22 U/L (12-78) Total Bilirubin 0.6 MG/DL (0.2-1.0) Sodium Level 147 MEQ/L (136-145) Potassium Level 3.6 MEQ/L (3.5-5.1) Chloride Level 116 MEQ/L (98-107) Carbon Dioxide Level 26.8 MEQ/L (21.0-32.0) Anion Gap 4 MEQ/L (5-15) Estimat Glomerular Filtration Rate 94 ML/MIN (>89) Test 08/28/17 19:20 08/29/17 05:00 08/29/17 08:30 08/30/17 03:40 Hemoglobin 8.0 GM/DL (13.0-17.0) 8.0 GM/DL (13.0-17.0) 8.0 GM/DL (13.0-17.0) Hematocrit 23.7 % (39.0-51.0) 23.8 % (39.0-51.0) 23.4 % (39.0-51.0) White Blood Count 18.9 TH/MM3 (4.0-11.0) 13.1 TH/MM3 (4.0-11.0) Red Blood Count 2.52 MIL/MM3 (4.50-5.90) 2.50 MIL/MM3 (4.50-5.90) Mean Corpuscular Volume 94.5 FL (80.0-100.0) 93.5 FL (80.0-100.0) Mean Corpuscular Hemoglobin 31.9 PG (27.0-34.0) 31.8 PG (27.0-34.0) Mean Corpuscular Hemoglobin Concent 33.7 % (32.0-36.0) 34.0 % (32.0-36.0) Red Cell Distribution Width 15.0 % (11.6-17.2) 15.2 % (11.6-17.2) Platelet Count 115 TH/MM3 (150-450) 130 TH/MM3 (150-450) Mean Platelet Volume 8.3 FL (7.0-11.0) 8.7 FL (7.0-11.0) Neutrophils (%) (Auto) 90.5 % (16.0-70.0) 92.8 % (16.0-70.0) Lymphocytes (%) (Auto) 5.2 % (9.0-44.0) 4.6 % (9.0-44.0) Monocytes (%) (Auto) 4.1 % (0.0-8.0) 2.4 % (0.0-8.0) Eosinophils (%) (Auto) 0.1 % (0.0-4.0) 0.0 % (0.0-4.0) Basophils (%) (Auto) 0.1 % (0.0-2.0) 0.2 % (0.0-2.0) Neutrophils # (Auto) 17.1 TH/MM3 (1.8-7.7) 12.2 TH/MM3 (1.8-7.7) Lymphocytes # (Auto) 1.0 TH/MM3 (1.0-4.8) 0.6 TH/MM3 (1.0-4.8) Monocytes # (Auto) 0.8 TH/MM3 (0-0.9) 0.3 TH/MM3 (0-0.9) Eosinophils # (Auto) 0.0 TH/MM3 (0-0.4) 0.0 TH/MM3 (0-0.4) Basophils # (Auto) 0.0 TH/MM3 (0-0.2) 0.0 TH/MM3 (0-0.2) CBC Comment DIFF FINAL DIFF FINAL Differential Comment Prothrombin Time 10.7 SEC (9.8-11.6) 10.2 SEC (9.8-11.6) Prothromb Time International Ratio 1.1 RATIO 1.0 RATIO Activated Partial Thromboplast Time 25.8 SEC (24.3-30.1) 25.3 SEC (24.3-30.1) Blood Urea Nitrogen 28 MG/DL (7-18) 27 MG/DL (7-18) Creatinine 0.81 MG/DL (0.60-1.30) 0.79 MG/DL (0.60-1.30) Random Glucose 121 MG/DL (74-106) 125 MG/DL (74-106) Total Protein 5.8 GM/DL (6.4-8.2) 6.1 GM/DL (6.4-8.2) Albumin 2.7 GM/DL (3.4-5.0) 2.6 GM/DL (3.4-5.0) Calcium Level 8.1 MG/DL (8.5-10.1) 8.4 MG/DL (8.5-10.1) Phosphorus Level 2.0 MG/DL (2.5-4.9) 2.3 MG/DL (2.5-4.9) Magnesium Level 2.3 MG/DL (1.5-2.5) 2.5 MG/DL (1.5-2.5) Alkaline Phosphatase 57 U/L (45-117) 65 U/L (45-117) Aspartate Amino Transf (AST/SGOT) 30 U/L (15-37) 34 U/L (15-37) Alanine Aminotransferase (ALT/SGPT) 21 U/L (12-78) 26 U/L (12-78) Total Bilirubin 0.5 MG/DL (0.2-1.0) 0.3 MG/DL (0.2-1.0) Direct Bilirubin 0.3 MG/DL (0.0-0.2) 0.2 MG/DL (0.0-0.2) Sodium Level 148 MEQ/L (136-145) 146 MEQ/L (136-145) Potassium Level 3.6 MEQ/L (3.5-5.1) 4.2 MEQ/L (3.5-5.1) Chloride Level 116 MEQ/L (98-107) 113 MEQ/L (98-107) Carbon Dioxide Level 25.1 MEQ/L (21.0-32.0) 26.4 MEQ/L (21.0-32.0) Anion Gap 7 MEQ/L (5-15) 7 MEQ/L (5-15) Estimat Glomerular Filtration Rate 91 ML/MIN (>89) 94 ML/MIN (>89) Indirect Bilirubin 0.2 MG/DL (0.0-0.8) 0.1 MG/DL (0.0-0.8) Blood Gas Puncture Site RT RADIAL Blood Gas Patient Temperature 98.6 Blood Gas HCO3 24 mmol/L (22-26) Blood Gas Base Excess 0.0 mmol/L (-2-2) Blood Gas Oxygen Saturation 91 % (90-100) Arterial Blood pH 7.43 (7.380-7.420) Arterial Blood Partial Pressure CO2 37 mmHg (38-42) Arterial Blood Partial Pressure O2 64 mmHg (61-120) Arterial Blood Oxygen Content 10.6 Vol % (12.0-20.0) Arterial Blood Carboxyhemoglobin 1.1 % (0-4) Arterial Blood Methemoglobin 1.3 % (0-2) Blood Gas Hemoglobin 8.3 G/DL (12.0-16.0) Oxygen Delivery Device Non-Rebreathing Mask Blood Gas Liter Flow 15 L/M Result Diagram: 08/30/17 0340 08/30/17 0340 Imaging Last Impressions Chest X-Ray 08/30/17 0000 Signed Impressions: Service Date/Time: August 07:42 - CONCLUSION: 1. The right-sided pneumothorax has increased in size compared to previous exam. There is a small bore chest tube in place on the right. 2. Continued bilateral infiltrates. Devin Sidhu MD Abdomen Ultrasound 08/27/17 0000 Signed Impressions: Service Date/Time: Sunday, August 27, 2017 09:20 - CONCLUSION: Gallbladder wall thickening without stones. Cholecystitis is not excluded. Radionuclide imaging is recommended for further evaluation if clinically indicated. Marco Lloyd MD Head CT 08/24/17 2349 Signed Impressions: Service Date/Time: Friday, August 25, 2017 00:02 - CONCLUSION: There is a hypodense subdural collection with slight left to right shift identified. The appearance suggests a chronic subdural hematoma. Duncan Odom MD Procedures INTUBATION 08/25/17 Arterial line 08/25/17 Right subclavian line 08/25/17 Dialysis catheter 08/25/17 Chest tube, right, 08/29/17 Second chest tube, right, 08/30/17 . 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 Lives with 2 roommates. Installed and maintained hope telephone systems until jail. Spiritual: Jehovah'[employer] Witness background, willing to see a lead miner blasting of similar background Legal: I was able to reach his son, Franklyn Mitchell, finally 08/31/17, [phone]. He tells me that the patient was in fact 3 times, and that he left the 3 sons and their mother when the 3 were all very young. The youngest son, Ross, has been completely estranged from the patient for essentially his entire lifetime, and has had no contact at all, and Franklyn believes he would not want to have any contact at this time. The oldest son Trent and now son Franklyn, have had intermittent telephone contact with the patient over the last few years. Franklyn will speak with Trent this evening regarding their options to be the decision-makers for the patient's healthcare, regarding resuscitation status , and regarding further aggressive care versus transition to comfort measures. Franklyn says he will call me tomorrow morning. Ethical issues impacting care: None . Important Contacts Son: Franklyn Mitchell [phone] Son: Trent [phone] Also in the record, "friend"/roommate Ross Oleary [phone]. . . Prognosis The patient is quite debilitated, malnourished, appears to have been losing weight, and now is quite encephalopathic and delusional, with respiratory failure. Overall, his prognosis is quite poor, and he would be appropriate for hospice services at this time if the goals become comfort oriented when decision -makers are found and involved. . Code Status: Full Code Plan * FULL CODE, but further discussion will be undertaken with the patient's sons ( if they elect to be his decision makers). * DECISION-MAKING: The patient lacks capacity for decision-making, and it appears unlikely that he will regain that capacity. He has 3 sons and no healthcare surrogate designation. I was able to reach his son, Franklyn Mitchell, finally 08/30/16, . He tells me that the patient was in fact 3 times, and that he left the 3 sons and their mother when the 3 were all very young. The youngest son, Ross, has been completely estranged from the patient for essentially his entire lifetime, and has had no contact at all, and Franklyn believes he would not want to have any contact at this time. The oldest son Trent and now son Franklyn, have had intermittent telephone contact with the patient over the last few years, and Franklyn will speak with Trent this evening regarding their options to be the decision-makers for the patient's healthcare, regarding resuscitation status, and regarding further aggressive care versus transition to comfort measures. Franklyn says he will call me tomorrow morning. * SYMPTOMS: The patient has no obvious pain, and continues to have dyspnea, delusions, and now encephalopathy. * GOALS: His sons or to call me in the morning with her decision about whether they want to be decision makers for the patient, or whether they opt out... * Palliative Care will continue to follow the patient during this hospitalization. . Time Spent Total Floor Time (mins): 46 Face to Face Time (mins): 11 >50% Counseling/Coord of Care: Yes (d/w RN) Attestation To help prompt me to consider important information that might be impacting today's encounter and assessment, information from prior notes written by myself or my colleagues may have been "brought forward" into today's note. My signature on this note, however, is an attestation that I personally performed the exam, history, and/or decision-making noted today, and, unless otherwise indicated, the interactions with patient, family, and staff as well as the review of records all occurred today. I also attest that the listed assessment and stated plan reflect my best clinical judgment today based on the combination of historical information, prior notes, and today's exam/ interactions. When time spent is documented, it refers only to time spent today by the signer, or if indicated, combined time spent today by collaborating physician/nurse practitioner. Alyce Montaño MD Aug 30, 2017 13:55
--- NOTE | 2017-08-30 17:28 | RADRPT ---
EXAM DATE/TIME: 08/30/2017 11:20 [facility] COMPARISON: No previous studies available for comparison. INDICATIONS : Patient with right sided pneumothorax in need of new chest tube placement and existing chest tube rem oval. PROCEDURE : Chest tube removal. Using aseptic technique the previously placed chest tube was easily removed in one piece and Vaseline gauze and sterile dressing was applied. Chest radiograph is to be obtained. CONCLUSION: Uncomplicated chest tube removal. This was the tube previously placed on the floor by the inten sivist Mega Whitfield MD on August 30, 2017 at 17:24 Board Certified Radiologist. This report was verified electronically.
[2017-08-30] MEDS: CHLORHEXIDINE 0.12% (ORAL KIT) 15 ML CUP MT SCH (20:00)
[2017-08-31] VITALS (17 sets, daily range): BP systolic 108–138; BP diastolic 60–78; PULSE 80–106; RESP 13–73; TEMP 97.6–98.2; O2SAT 88–100
[2017-08-31] MEDS: methylPREDNISolone SOD SUCC 40 MG/1 ML VIAL IV PUSH SCH ×3 (02:00→18:20)
[2017-08-31 05:05] LABS: AUTOMATED NEUTROPHIL # 12.6 TH/MM3 (1.8-7.7); BASOPHIL % 0.1 % (0.0-2.0); HEMATOCRIT 23.2 % (39.0-51.0); HEMOGLOBIN 7.8 GM/DL (13.0-17.0); LYMPH % 5.3 % (9.0-44.0); LYMPHOCYTE # 0.8 TH/MM3 (1.0-4.8); MEAN CELL VOLUME 93.2 FL (80.0-100.0); MEAN CORPUSCULAR HEMOGLOBIN 31.2 PG (27.0-34.0); MEAN CORPUSCULAR HGB CONC 33.5 % (32.0-36.0); MEAN PLATELET VOLUME 8.5 FL (7.0-11.0); MONO % 6.5 % (0.0-8.0); MONOCYTE # 0.9 TH/MM3 (0-0.9); NEUT % 88.1 % (16.0-70.0); PLATELET COUNT 157 TH/MM3 (150-450); RED BLOOD COUNT 2.49 MIL/MM3 (4.50-5.90); RED CELL DISTRIBUTION WIDTH 14.9 % (11.6-17.2); WHITE BLOOD COUNT 14.3 TH/MM3 (4.0-11.0)
[2017-08-31] MEDS: INSULIN NovoLIN REGULAR SUPPLEMENTAL SCALE SQ SCH ×3 (05:10→18:00)
[2017-08-31] MEDS: DILTIAZEM HCL 60 MG TAB PO SCH ×3 (05:10→18:20)
--- NOTE | 2017-08-31 05:18 | RADRPT ---
EXAM DATE/TIME: 08/31/2017 03:48 [facility] COMPARISON: No previous studies available for comparison. INDICATIONS : Evaluate for pneomothorax. MEDICAL HISTORY : Hypercholesterolemia. Benign prostatic hyperplasia, (BPH) Afib, Melanoma. SURGICAL HISTORY : Eye surgery. Right nare removal. Pins to left sholder ENCOUNTER: Subsequent ACUITY: 1 week PAIN SCORE: Non-responsive. LOCATION: chest FINDINGS: Small caliber right chest tube present with small right pneumothorax, slightly larger than on ua y. Extensive subcutaneous and chest wall. Bilateral airspace disease slightly improved at the right l trevor base since August 30. Cardiomegaly. CONCLUSION: 1. Small right pneumothorax, slightly larger than on August 30. Small caliber right chest tube remai ns. Right central line in superior vena cava. Omi Herndon MD on August 31, 2017 at 5:14 Board Certified Radiologist. This report was verified electronically.
[2017-08-31 05:22] LABS: CALCIUM 8.2 MG/DL (8.5-10.1); CREATININE 0.76 MG/DL (0.60-1.30); PHOSPHORUS 2.7 MG/DL (2.5-4.9)
[2017-08-31] MEDS: CHLORHEXIDINE 0.12% (ORAL KIT) 15 ML CUP MT SCH ×2 (08:00→20:00)
[2017-08-31] MEDS: SODIUM CHLORIDE 0.9% FLUSH 10 ML FLUSH IV FLUSH SCH ×2 (09:00→21:28)
--- NOTE | 2017-08-31 09:23 | HHI.CCPN ---
Subjective Remarks/Hospital Course Hospital Course: This is an 82-year-old male with a past medical history of hypertension and hyperlipidemia who was brought to the emergency department after being found altered. Per hospital records, the patient had been declining for the last 2-3 days. He was brought in the emergency department where he was only oriented to self. He continued to decline and became unresponsive. ABG is significant for severe combined acidosis: 7.13/52/78. salicylate level is 72.6, ck 1200, Cr 1.1 , wbc 12.4. I was called by Dr. Yanes about emergent transfer to the ICU. the patient came into the ICU during my conversation and I immediately evaluated the patient who at this point was unresponsive and agonal. I emergently intubated the patient (see separate procedure note for details). I then placed central line and dialysis catheter emergently, as well as arterial line for serial ABGs. I discussed the case then with Dr. Nagel who agrees with emergent dialysis. Subjective: 08/26: salicylate level still elevated, although downtrending. CKs still elevated and uptrended throughout the day. uop marginal at best. more awake than yesterday. discussed with poison control, ok to stop trending salicylate levels. 08/27 Patient is on 4L oxygen. Had large black tarry stool BM this morning Hgb dropped 7.3 from 11.6 yesterday. Afebrile. On Cardizem drip 10mg/hr. ASA level 10.5 this morning. 08/28 Patient is lying in bed in NAD. s/p transfusion 2u PRBC yesterday Hgb 8.4 this morning. Refused EGD yesterday. Off Cardizem drip. 08/29 Patient had right sided PTX last night s/p CT placement with reexpansion of right lung post CT placement. Started on Amio drip last night for Afib RVR 08/30 Patient is on partial NRB. Afebrile. 08/31 Patient is on 6L oxygen s/p [address] placed by IR yesterday. Awake with intermittent confusion. Objective Vital Signs Date Time Temp Pulse Resp B/P (MAP) Pulse Ox O2 Delivery O2 Flow Rate FiO2 08/31/17 08:53 92 Nasal Cannula 6.00 08/31/17 06:00 100 08/31/17 04:00 97.6 29 138/77 (97) Intake and Output 08/31/17 08/31/17 09/01/17 08:00 16:00 00:00 Intake Total 480 ml Output Total 519 ml Balance -39 ml Result Diagram: 08/31/17 0425 08/31/17 0425 Other Results Laboratory Tests Test 08/31/17 04:25 White Blood Count 14.3 TH/MM3 Red Blood Count 2.49 MIL/MM3 Hemoglobin 7.8 GM/DL Hematocrit 23.2 % Mean Corpuscular Volume 93.2 FL Mean Corpuscular Hemoglobin 31.2 PG Mean Corpuscular Hemoglobin Concent 33.5 % Red Cell Distribution Width 14.9 % Platelet Count 157 TH/MM3 Mean Platelet Volume 8.5 FL Neutrophils (%) (Auto) 88.1 % Lymphocytes (%) (Auto) 5.3 % Monocytes (%) (Auto) 6.5 % Eosinophils (%) (Auto) 0.0 % Basophils (%) (Auto) 0.1 % Neutrophils # (Auto) 12.6 TH/MM3 Lymphocytes # (Auto) 0.8 TH/MM3 Monocytes # (Auto) 0.9 TH/MM3 Eosinophils # (Auto) 0.0 TH/MM3 Basophils # (Auto) 0.0 TH/MM3 CBC Comment DIFF FINAL Differential Comment Blood Urea Nitrogen 31 MG/DL Creatinine 0.76 MG/DL Random Glucose 120 MG/DL Calcium Level 8.2 MG/DL Phosphorus Level 2.7 MG/DL Sodium Level 143 MEQ/L Potassium Level 4.0 MEQ/L Chloride Level 110 MEQ/L Carbon Dioxide Level 27.0 MEQ/L Anion Gap 6 MEQ/L Estimat Glomerular Filtration Rate 98 ML/MIN Imaging Last Impressions Chest X-Ray 08/31/17 0000 Signed Impressions: Service Date/Time: Thursday, August 31, 2017 03:48 - CONCLUSION: 1. Small right pneumothorax, slightly larger than on August 30. Small caliber right chest tube remains. Right central line in superior vena cava. Omi Herndon MD Tunnelled Chest Tube Removal 08/30/17 0000 Signed Impressions: Service Date/Time: August 11:20 - CONCLUSION: Uncomplicated chest tube removal. This was the tube previously placed on the floor by the trimming machine operator Mega Whitfield MD Chest Tube Insertion 08/30/17 0000 Signed Impressions: Service Date/Time: August 11:20 - CONCLUSION: Uncomplicated chest tube placement as above. Mega Whitfield MD Abdomen Ultrasound 08/27/17 0000 Signed Impressions: Service Date/Time: Sunday, August 27, 2017 09:20 - CONCLUSION: Gallbladder wall thickening without stones. Cholecystitis is not excluded. Radionuclide imaging is recommended for further evaluation if clinically indicated. Marco Lloyd MD Head CT 08/24/17 2349 Signed Impressions: Service Date/Time: Friday, August 25, 2017 00:02 - CONCLUSION: There is a hypodense subdural collection with slight left to right shift identified. The appearance suggests a chronic subdural hematoma. Duncan Odom MD Objective Remarks GENERAL: Elderly frail cachectic male, lying in bed in NAD HEENT: Normocephalic. Atraumatic. Pupils equal, round, reactive, conjugate. Mucous membranes are still dry. NECK: Trachea is midline. There is no JVD. CHEST: PRVC, 40% fio2, clear bilaterally. CARDIOVASCULAR: Tachycardic rate, irregularly irregular rhythm. afib by tele. ABDOMEN: Soft, scaphoid nontender, nondistended. No guarding. MUSCULOSKELETAL: Pulses 2+. No peripheral edema. NEUROLOGICAL: Awake A/P Assessment and Plan Plan by systems: Neurologic: Psychosis Toxic encephalopathy- resolved - salicylate subtherapeutic now. 10.5 yesterday -s/p emergent dialysis 2/3 - neuro checks -Psych is following Respiratory: Acute hypoxic and hypercarbic respiratory failure- Extubated 08/26 ?COPD Right sided PTX s/p CT placement Continue with oxygen keep sat >92% Bronchodilators, solumederol 40mg Q8 s/p CT by IR 08/31, CT placed on 08/29 removed by IR and new one placed yesterday. CXR this morning small right PTX, CT in place. CTS consulted Cardiovascular: Atrial fibrillation with rapid ventricular response On Cardizem 60mg Q6, Lopressor 25mg Q12 monitor HR and BP keep MAP>65mmHG Echo showed EF 50-55% Renal: Acute kidney injury-imprving Acute rhabdomyolysis -Monitor renal function, I/O's, electrolytes replacement per protocol. -s/p Emergent dialysis 2/3 d/c IVF . FEN/GI: GI bleed Anemia 2nd acute blood loss Severe acute protein calorie malnutrition --s/p EGD 08/28: Two ulcers in antrum /pyloric channel-clean base-biopsy gastritis antrum-biopsy duodenitis duodenal bulb-biopsy ,stricture distal esophagus-biopsys/p dilatation, esophagitis - GI is following Dr. Villalobos, on Protonix drip -s/p Transfusion 2units PRBC on 08/27. US abdomen: Gallbladder wall thickening without stones On full liquid diet Heme Monitor CBC, coags-s/p transfusion 2u PRBC 08/27 ID Continue Rocephin. Monitor for signs of infections ( Fever, WBC) Endocrine: hyperglycemia of critical illness SSI q6h med scale Prophylaxis: GI Prophylaxis Pepcid DVT Prophylaxis -- SCDs history of chronic subdurals, not on AC prophylaxis given GI bleed and anemia requiring blood transfusion . Lines: 2/3: right SC TLC d/c central line 2/3: chery. Dispo: remain in ICU. Palliative care is following Level 2 Eddie Barr MD Aug 31, 2017 09:23
[2017-08-31] MEDS: PANTOPRAZOLE SODIUM 40 MG VIAL IV PUSH SCH ×2 (09:29→21:27)
[2017-08-31] MEDS: QUEtiapine FUMARATE 25 MG TAB PO SCH ×2 (09:29→15:22)
[2017-08-31] MEDS: METOPROLOL TARTRATE 25 MG TAB PO SCH ×2 (09:29→21:00)
[2017-08-31] MEDS: cefTRIAXone INJ 1,000 MG in SODIUM CHLORIDE 0.9% INJ 100 ML IV SCH (09:29)
--- NOTE | 2017-08-31 11:03 | HHI.HCPN ---
Reason for visit a. To assist with evaluation and management of symptoms including: Encephalopathy, delusions, pain b. To assist medical decision maker(s) with: better understanding of current medical conditions; weighing benefits/burdens of medical treatment options; making medical treatment decisions. . Subjective/Interval History INTERVAL NOTE: The patient is now on O2 6 L. He seems weaker, more lethargic. He is scheduled to go back for another (third) chest tube attempt, and it has been noted that he has SQ emphysema on his right anterior chest. His oxygen saturation was 92%. tube. He remains lethargic, confused. The patient's son Franklyn called me again this morning, see below. . Family/friend interactions Discussion again with leilani Estes and Trent. They have decided that they do want to serve as his proxy decision makers, and after considerable discussion they request that we transition to comfort measures and engage hospice services "so he does not have to suffer anymore." He definitely want him to be a DNR, and Trent says that the patient told him in the past that he already was a DNR. . Advance Directives Living Will: Never completed Health Care Surrogate: Never completed Durable Power of Scientific Research Manager: Never completed Advance Directive Specifics Significant change in goals: Leilani requests DNR and hospice consultation . Objective Vital Signs Date Time Temp Pulse Resp B/P (MAP) Pulse Ox O2 Delivery O2 Flow Rate FiO2 08/31/17 10:00 97 08/31/17 09:00 103 08/31/17 09:00 98.2 103 69 115/60 (78) 88 08/31/17 08:53 92 Nasal Cannula 6.00 08/31/17 08:00 91 73 126/63 (84) 89 08/31/17 08:00 Nasal Cannula 5.00 08/31/17 08:00 91 08/31/17 06:00 100 08/31/17 04:00 86 08/31/17 04:00 97.6 86 29 138/77 (97) 91 08/31/17 04:00 91 Nasal Cannula 5.00 08/31/17 02:00 80 08/31/17 00:00 83 08/31/17 00:00 97.7 83 22 108/64 (79) 95 08/31/17 00:00 95 Nasal Cannula 5.00 08/30/17 22:00 87 08/30/17 21:18 98 Nasal Cannula 5.00 08/30/17 20:00 93 08/30/17 20:00 97 Nasal Cannula 5.00 08/30/17 20:00 97.7 93 25 121/72 (88) 97 08/30/17 18:00 96 08/30/17 16:00 118 08/30/17 16:00 99.2 118 36 91 08/30/17 16:00 91 Nasal Cannula 5.00 08/30/17 15:53 94 Nasal Cannula 5.00 08/30/17 14:00 129 Intake & Output 08/31/17 08/31/17 07:00 19:00 Intake Total 1480 ml 100 ml Output Total 519 ml Balance 961 ml 100 ml Intake Oral 480 ml IV Total 1000 ml 100 ml Output Urine Total 500 ml Chest Tube Drainage Total 19 ml # Bowel Movements 0 Physical Exam CONSTITUTIONAL/GENERAL: This is a disheveled, elderly, weak patient, in no apparent distress, lethargic, O2 high flow via nasal cannula in place. CARDIOVASCULAR: Irregular rhythm without murmurs, gallops, or rubs. No JVD. Peripheral pulses diminished. RESPIRATORY/CHEST: Symmetric, unlabored respirations. Mild wheezing bilateral, scattered rhonchi. Subcutaneous emphysema on the chest wall on the right GASTROINTESTINAL: Abdomen soft, non-tender, nondistended. No hepato-splenomegaly , or palpable masses. No guarding. Bowel sounds present. GENITOURINARY: Without palpable bladder distension. Ansari catheter in place. MUSCULOSKELETAL: Extremities without clubbing, cyanosis, or edema. No joint tenderness or effusion noted. No calf tenderness. No mottling or clubbing. NEUROLOGICAL: Remains lethargic today, opens eyes but minimally verbal PSYCHIATRIC: No obvious anxiety, depression, psychosis, hallucinations at this time. Has been consistently delusional about his own . . Diagnostic Tests Laboratory Laboratory Tests Test 08/28/17 13:15 08/28/17 19:20 08/29/17 05:00 08/29/17 08:30 Hemoglobin 8.4 GM/DL (13.0-17.0) 8.0 GM/DL (13.0-17.0) 8.0 GM/DL (13.0-17.0) Hematocrit 24.4 % (39.0-51.0) 23.7 % (39.0-51.0) 23.8 % (39.0-51.0) White Blood Count 18.9 TH/MM3 (4.0-11.0) Red Blood Count 2.52 MIL/MM3 (4.50-5.90) Mean Corpuscular Volume 94.5 FL (80.0-100.0) Mean Corpuscular Hemoglobin 31.9 PG (27.0-34.0) Mean Corpuscular Hemoglobin Concent 33.7 % (32.0-36.0) Red Cell Distribution Width 15.0 % (11.6-17.2) Platelet Count 115 TH/MM3 (150-450) Mean Platelet Volume 8.3 FL (7.0-11.0) Neutrophils (%) (Auto) 90.5 % (16.0-70.0) Lymphocytes (%) (Auto) 5.2 % (9.0-44.0) Monocytes (%) (Auto) 4.1 % (0.0-8.0) Eosinophils (%) (Auto) 0.1 % (0.0-4.0) Basophils (%) (Auto) 0.1 % (0.0-2.0) Neutrophils # (Auto) 17.1 TH/MM3 (1.8-7.7) Lymphocytes # (Auto) 1.0 TH/MM3 (1.0-4.8) Monocytes # (Auto) 0.8 TH/MM3 (0-0.9) Eosinophils # (Auto) 0.0 TH/MM3 (0-0.4) Basophils # (Auto) 0.0 TH/MM3 (0-0.2) CBC Comment DIFF FINAL Differential Comment Prothrombin Time 10.7 SEC (9.8-11.6) Prothromb Time International Ratio 1.1 RATIO Activated Partial Thromboplast Time 25.8 SEC (24.3-30.1) Blood Urea Nitrogen 28 MG/DL (7-18) Creatinine 0.81 MG/DL (0.60-1.30) Random Glucose 121 MG/DL (74-106) Total Protein 5.8 GM/DL (6.4-8.2) Albumin 2.7 GM/DL (3.4-5.0) Calcium Level 8.1 MG/DL (8.5-10.1) Phosphorus Level 2.0 MG/DL (2.5-4.9) Magnesium Level 2.3 MG/DL (1.5-2.5) Alkaline Phosphatase 57 U/L (45-117) Aspartate Amino Transf (AST/SGOT) 30 U/L (15-37) Alanine Aminotransferase (ALT/SGPT) 21 U/L (12-78) Total Bilirubin 0.5 MG/DL (0.2-1.0) Direct Bilirubin 0.3 MG/DL (0.0-0.2) Sodium Level 148 MEQ/L (136-145) Potassium Level 3.6 MEQ/L (3.5-5.1) Chloride Level 116 MEQ/L (98-107) Carbon Dioxide Level 25.1 MEQ/L (21.0-32.0) Anion Gap 7 MEQ/L (5-15) Estimat Glomerular Filtration Rate 91 ML/MIN (>89) Indirect Bilirubin 0.2 MG/DL (0.0-0.8) Blood Gas Puncture Site RT RADIAL Blood Gas Patient Temperature 98.6 Blood Gas HCO3 24 mmol/L (22-26) Blood Gas Base Excess 0.0 mmol/L (-2-2) Blood Gas Oxygen Saturation 91 % (90-100) Arterial Blood pH 7.43 (7.380-7.420) Arterial Blood Partial Pressure CO2 37 mmHg (38-42) Arterial Blood Partial Pressure O2 64 mmHg (61-120) Arterial Blood Oxygen Content 10.6 Vol % (12.0-20.0) Arterial Blood Carboxyhemoglobin 1.1 % (0-4) Arterial Blood Methemoglobin 1.3 % (0-2) Blood Gas Hemoglobin 8.3 G/DL (12.0-16.0) Oxygen Delivery Device Non-Rebreathing Mask Blood Gas Liter Flow 15 L/M Test 08/30/17 03:40 08/31/17 04:25 White Blood Count 13.1 TH/MM3 (4.0-11.0) 14.3 TH/MM3 (4.0-11.0) Red Blood Count 2.50 MIL/MM3 (4.50-5.90) 2.49 MIL/MM3 (4.50-5.90) Hemoglobin 8.0 GM/DL (13.0-17.0) 7.8 GM/DL (13.0-17.0) Hematocrit 23.4 % (39.0-51.0) 23.2 % (39.0-51.0) Mean Corpuscular Volume 93.5 FL (80.0-100.0) 93.2 FL (80.0-100.0) Mean Corpuscular Hemoglobin 31.8 PG (27.0-34.0) 31.2 PG (27.0-34.0) Mean Corpuscular Hemoglobin Concent 34.0 % (32.0-36.0) 33.5 % (32.0-36.0) Red Cell Distribution Width 15.2 % (11.6-17.2) 14.9 % (11.6-17.2) Platelet Count 130 TH/MM3 (150-450) 157 TH/MM3 (150-450) Mean Platelet Volume 8.7 FL (7.0-11.0) 8.5 FL (7.0-11.0) Neutrophils (%) (Auto) 92.8 % (16.0-70.0) 88.1 % (16.0-70.0) Lymphocytes (%) (Auto) 4.6 % (9.0-44.0) 5.3 % (9.0-44.0) Monocytes (%) (Auto) 2.4 % (0.0-8.0) 6.5 % (0.0-8.0) Eosinophils (%) (Auto) 0.0 % (0.0-4.0) 0.0 % (0.0-4.0) Basophils (%) (Auto) 0.2 % (0.0-2.0) 0.1 % (0.0-2.0) Neutrophils # (Auto) 12.2 TH/MM3 (1.8-7.7) 12.6 TH/MM3 (1.8-7.7) Lymphocytes # (Auto) 0.6 TH/MM3 (1.0-4.8) 0.8 TH/MM3 (1.0-4.8) Monocytes # (Auto) 0.3 TH/MM3 (0-0.9) 0.9 TH/MM3 (0-0.9) Eosinophils # (Auto) 0.0 TH/MM3 (0-0.4) 0.0 TH/MM3 (0-0.4) Basophils # (Auto) 0.0 TH/MM3 (0-0.2) 0.0 TH/MM3 (0-0.2) CBC Comment DIFF FINAL DIFF FINAL Differential Comment Prothrombin Time 10.2 SEC (9.8-11.6) Prothromb Time International Ratio 1.0 RATIO Activated Partial Thromboplast Time 25.3 SEC (24.3-30.1) Blood Urea Nitrogen 27 MG/DL (7-18) 31 MG/DL (7-18) Creatinine 0.79 MG/DL (0.60-1.30) 0.76 MG/DL (0.60-1.30) Random Glucose 125 MG/DL (74-106) 120 MG/DL (74-106) Total Protein 6.1 GM/DL (6.4-8.2) Albumin 2.6 GM/DL (3.4-5.0) Calcium Level 8.4 MG/DL (8.5-10.1) 8.2 MG/DL (8.5-10.1) Phosphorus Level 2.3 MG/DL (2.5-4.9) 2.7 MG/DL (2.5-4.9) Magnesium Level 2.5 MG/DL (1.5-2.5) Alkaline Phosphatase 65 U/L (45-117) Aspartate Amino Transf (AST/SGOT) 34 U/L (15-37) Alanine Aminotransferase (ALT/SGPT) 26 U/L (12-78) Total Bilirubin 0.3 MG/DL (0.2-1.0) Direct Bilirubin 0.2 MG/DL (0.0-0.2) Sodium Level 146 MEQ/L (136-145) 143 MEQ/L (136-145) Potassium Level 4.2 MEQ/L (3.5-5.1) 4.0 MEQ/L (3.5-5.1) Chloride Level 113 MEQ/L (98-107) 110 MEQ/L (98-107) Carbon Dioxide Level 26.4 MEQ/L (21.0-32.0) 27.0 MEQ/L (21.0-32.0) Anion Gap 7 MEQ/L (5-15) 6 MEQ/L (5-15) Estimat Glomerular Filtration Rate 94 ML/MIN (>89) 98 ML/MIN (>89) Indirect Bilirubin 0.1 MG/DL (0.0-0.8) Result Diagram: 2/9/18 0425 08/31/17 0425 Imaging Last Impressions Chest X-Ray 08/31/17 0000 Signed Impressions: Service Date/Time: Thursday, August 31, 2017 03:48 - CONCLUSION: 1. Small right pneumothorax, slightly larger than on August 30. Small caliber right chest tube remains. Right central line in superior vena cava. Omi Herndon MD Tunnelled Chest Tube Removal 08/30/17 0000 Signed Impressions: Service Date/Time: August 11:20 - CONCLUSION: Uncomplicated chest tube removal. This was the tube previously placed on the floor by the newspaper or periodical editor Mega Whitfield MD Chest Tube Insertion 08/30/17 0000 Signed Impressions: Service Date/Time: August 11:20 - CONCLUSION: Uncomplicated chest tube placement as above. Mega Whitfield MD Abdomen Ultrasound 08/27/17 0000 Signed Impressions: Service Date/Time: Sunday, August 27, 2017 09:20 - CONCLUSION: Gallbladder wall thickening without stones. Cholecystitis is not excluded. Radionuclide imaging is recommended for further evaluation if clinically indicated. Marco Lloyd MD Head CT 08/24/17 2349 Signed Impressions: Service Date/Time: Friday, August 25, 2017 00:02 - CONCLUSION: There is a hypodense subdural collection with slight left to right shift identified. The appearance suggests a chronic subdural hematoma. Duncan Odom MD Procedures INTUBATION 08/25/17 Arterial line 08/25/17 Right subclavian line 08/25/17 Dialysis catheter 08/25/17 Chest tube, right, 08/29/17 Second chest tube, right, 08/30/17 Third chest tube, right, 08/31/17 . 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 Lives with 2 roommates. Installed and maintained hope telephone systems until nursing home. Spiritual: Taoism background, willing to see a pin ticket machine operator of similar background Legal: I was able to reach his son, Franklyn Mitchell, finally 08/31/17, . He tells me that the patient was in fact 3 times, and that he left the 3 sons and their mother when the 3 were all very young. The youngest son, Ross, has been completely estranged from the patient for essentially his entire lifetime, and has had no contact at all, and Franklyn believes he would not want to have any contact at this time. The oldest son Trent and now son Franklyn, have had intermittent telephone contact with the patient over the last few years. Franklyn will speak with Trent this evening regarding their options to be the decision-makers for the patient's healthcare, regarding resuscitation status , and regarding further aggressive care versus transition to comfort measures. Franklyn says he will call me tomorrow morning. Ethical issues impacting care: None . Important Contacts Son: Franklyn Mitchell [phone] Son: Trent [phone] Also in the record, "friend"/roommate Ross Oleary [phone]. . . Prognosis The patient is quite debilitated, malnourished, appears to have been losing weight, and now is quite encephalopathic and delusional, with respiratory failure. Overall, his prognosis is quite poor, and he would be appropriate for hospice services at this time if the goals become comfort oriented when decision -makers are found and involved. . Code Status: Full Code Plan * DO NOT RESUSCITATE, per son's on 08/31/17 * DECISION-MAKING: The patient lacks capacity for decision-making, and he will not regain that capacity. His sons Franklyn and Trent her functioning is his proxy decision makers. * SYMPTOMS: The patient has dyspnea and likely has some pain and confusion. Hospice will assume comfort care. * GOALS: His sons requests DNR status and hospice consultation to transition to comfort measures for end-of-life. * Hospice consult placed. * Palliative Care will continue to follow the patient during this hospitalization. . Time Spent Total Floor Time (mins): 44 Face to Face Time (mins): 13 >50% Counseling/Coord of Care: Yes (d/w Dr. Olson) Attestation To help prompt me to consider important information that might be impacting today's encounter and assessment, information from prior notes written by myself or my colleagues may have been "brought forward" into today's note. My signature on this note, however, is an attestation that I personally performed the exam, history, and/or decision-making noted today, and, unless otherwise indicated, the interactions with patient, family, and staff as well as the review of records all occurred today. I also attest that the listed assessment and stated plan reflect my best clinical judgment today based on the combination of historical information, prior notes, and today's exam/ interactions. When time spent is documented, it refers only to time spent today by the signer, or if indicated, combined time spent today by collaborating physician/nurse practitioner. Alyce Montaño MD Aug 31, 2017 11:03
[2017-08-31] MEDS ORDERED: MIDAZOLAM HCL 2 MG/2 ML VIAL ONE (13:11)
--- NOTE | 2017-08-31 14:03 | PD.RAD ---
Post Procedure Progress Note Pre Procedure Diagnosis: (1) Pneumothorax on right Post Procedure Diagnosis: (1) Pneumothorax on right Procedure Date: Aug 31, 2017 Supervising Radiologist: Mega Whitfield Proceduralist/Assist: Emory Sarah, RT(R), Luanne Ruiz RT(R) Anesthesia: Local, Analgesia, Conscious Sedation Plan of Activity Patient to Unit: Nursing Unit Patient Condition: Good See PACS Report for procedural detail/treatment Drainage Procedure Procedure 1 Imaging Guidance: Fluoroscopy Side: Right Procedure Type: Chest Tube Non-Tunneled Procedure: Exchange (and upsize/reposition) Drainage: Pleurovac (40 cm H2O) Fluid Description: Mega Rose MD Aug 31, 2017 14:03
--- NOTE | 2017-08-31 14:17 | RADRPT ---
EXAM DATE/TIME: 08/31/2017 13:03 [facility] COMPARISON: No previous studies available for comparison. INDICATIONS : Patient with right pneumothorax in need of exchange of chest tube. MEDICAL HISTORY : HTN, HLD, A-Fib, BPH, Esophagitis, CAD, Colon polyps, Colitis SURGICAL HISTORY : Colonoscopy with biopsy, EGD with biopsy ENCOUNTER: Subsequent ACUITY: 2 days PAIN SCORE: 0/10 FLUORO TIME: 0.7 minutes IMAGE SERIES: SEDATION TIME: 30 minutes MEDICATION(S): 1.) 1 mg midazolam (Versed) IV 2.) 50 mcg fentanyl (Sublimaze) IV DEVICE(S): 1.) 12 [place] non-locking catheter [place] PROCEDURE : 1. Fluoroscopically guided chest tube exchange. 2. Conscious sedation with continuous EKG and oximetry monitoring. The risks, benefits and alternatives to the procedure were explained and verbal and written consent w as obtained. The site was prepped in sterile fashion. Full sterile technique was used, including ca p, mask, sterile gloves and gown and a large sterile sheet. Hand hygiene and 2% chlorhexidine and/or betadine/alcohol prep was utilized per protocol for cutaneous antisepsis. The skin and subcutaneous tissues were infiltrated with local anesthetic solution. With fluoroscopic guidance the previously placed chest tube was exchanged for the prescribed catheter . Post procedure imaging demonstrates satisfactory position of the tube. The catheter was sutured i n place and a Percu-Stay was applied. Conscious sedation was performed with the prescribed dosages and duration as above in the presence of an independent trained radiology nurse to assist in the monitoring of the patient. EKG and oximetry remained stable throughout the procedure. The patient tolerated the procedure well and there were no complications. The patient was sent to post anesthesia recovery in stable condition. CONCLUSION: Uncomplicated chest tube exchange as above. Tube was upsized to 12 Ni[place]an. Mega Whitfield MD on August 31, 2017 at 14:15 Board Certified Radiologist. This report was verified electronically.
--- NOTE | 2017-08-31 14:55 | RADRPT ---
EXAM DATE/TIME: 08/31/2017 14:04 [facility] COMPARISON: CHEST EXPIRATION ONLY, August 31, 2017, 3:48. INDICATIONS : Status post chest tube placement. MEDICAL HISTORY : HTN, HLD, A-Fib, BPH, Esophagitis, CAD, Colon polyps, Colitis SURGICAL HISTORY : Colonoscopy with biopsy, EGD with biopsy ENCOUNTER: Subsequent ACUITY: 1 day PAIN SCORE: Non-responsive. LOCATION: Bilateral chest FINDINGS: Chest tube apex of the right lung. Extensive subcutaneous emphysema. Diffuse interstitial changes b oth lungs and cardiomegaly. CONCLUSION: There is no pneumothorax. Increasing interstitial changes both lungs. Extensive sub cutaneous emphysema. Joey Sidhu MD FACR on August 31, 2017 at 14:52 Board Certified Radiologist. This report was verified electronically.
--- NOTE | 2017-08-31 15:03 | PD.CONS ---
History of Present Illness Service CT Surgery Consult Requested By Dr. Barr Reason for Consult Right pneumothorax Primary Care Physician Unknown Diagnoses: History of Present Illness 82-year-old male with a past medical history of hypertension and hyperlipidemia who was brought to the emergency department after being found altered. Per hospital records, the patient had been declining for the last 2-3 days. He was brought in the emergency department where he was only oriented to self. He continued to decline and became unresponsive. He was found to have salicylate toxicity requiring intubation/mechanical ventilation. Dr. Maki placed a chest tube for a right pneumothorax on 08/29/17 with re-expansion. He has a small air leak on 40 cm suction. Review of Systems ROS Limitations: Clinical Condition, Altered Mental Status, Poor Historian Past Family Social History Allergies: Coded Allergies: No Known Allergies (Verified Allergy, Unknown, 08/25/17) Past Medical History (Obtained from medical records) Hypertension Hyperlipidemia BPH Past Surgical History Left shoulder replacement Family History Negative for CAD/DM Social History Smokes about a pack a day. Does drink about 2 beers a day. Denies illicit drugs Active Ordered Medications Current Medications Medications (Trade) Dose Ordered Sig/Ortega Route Start Time Stop Time Status Last Admin (NS Flush) 2 ml UNSCH PRN IV FLUSH 08/25/17 03:15 08/27/17 10:02 (NS Flush) 2 ml BID IV FLUSH 08/25/17 09:00 08/31/17 09:00 (Tylenol) 650 mg Q4H PRN PO 08/25/17 03:15 08/27/17 21:21 (Zofran Inj) 4 mg Q6H PRN IVP 08/25/17 03:15 (Narcan Inj) 0.4 mg UNSCH PRN IV PUSH 08/25/17 03:15 (Milk Of Magnesia Liq) 30 ml Q12H PRN PO 08/25/17 03:15 (Senokot) 17.2 mg Q12H PRN PO 08/25/17 03:15 (Dulcolax Supp) 10 mg DAILY PRN RECTAL 08/25/17 03:15 (Lactulose Liq) 30 ml DAILY PRN PO 08/25/17 03:15 Miscellaneous Information Patient in critical care unit? Ass... Q361D .XX 08/25/17 07:15 08/25/17 07:15 (Peridex 0.12% Liq) 15 ml BID@08,20 MT 08/25/17 08:00 08/31/17 08:00 Potassium Chloride 100 ml @ 50 mls/hr Q2H PRN IV 08/25/17 07:45 08/26/17 06:21 Potassium Chloride 100 ml @ 50 mls/hr Q2H PRN IV 08/25/17 07:45 (K-Lyte Cl Eff) 50 meq UNSCH PRN PO 08/25/17 07:45 Potassium Chloride 100 ml @ 25 mls/hr UNSCH PRN IV 08/25/17 07:45 Potassium Chloride 100 ml @ 50 mls/hr Q2H PRN IV 08/25/17 07:45 Magnesium Sulfate 4 gm/Sodium Chloride 100 ml @ 50 mls/hr UNSCH PRN IV 08/25/17 07:45 (Mag-Ox) 800 mg UNSCH PRN PO 08/25/17 07:45 Magnesium Sulfate 2 gm/Sodium Chloride 100 ml @ 50 mls/hr UNSCH PRN IV 08/25/17 07:45 (K-Phos) 2,000 mg Q4H PRN PO 08/25/17 07:45 Sodium Phosphate 30 mmol/Sodium Chloride 250 ml @ 42 mls/hr UNSCH PRN IV 08/25/17 07:45 08/30/17 06:44 (K-Phos) 2,000 mg UNSCH PRN PO/TUBE 08/25/17 07:45 Potassium Phosphate 30 mmol/ Sodium Chloride 260 ml @ 42 mls/hr UNSCH PRN IV 08/25/17 07:45 08/29/17 06:56 (D50w (Vial) Inj) 25 ml UNSCH PRN IV PUSH 08/25/17 07:45 (NovoLIN R SUPPLEMENTAL SCALE) 1 Q6HR SQ 08/25/17 12:00 (Duoneb Neb) 1 ampule Q2HR NEB PRN INH 08/25/17 07:45 08/30/17 15:44 Sodium Chloride 1,000 ml @ 0 mls/hr TITRATE PRN OTHER 08/25/17 10:30 08/25/17 12:00 (Heparin Inj) 8,000 units UNSCH PRN IV FLUSH 08/25/17 10:30 Sodium Chloride 1,000 ml @ 200 mls/hr Q5H PRN OTHER 08/25/17 10:30 Sodium Chloride 200 ml @ 0 mls/hr UNSCH PRN IV 08/25/17 10:30 (Mannitol Inj) 12.5 gm UNSCH PRN IV PUSH 08/25/17 10:30 (NS Flush) 5 ml UNSCH PRN IV FLUSH 08/25/17 10:30 (Heparin Inj) Dwell Heparin to f... UNSCH PRN OTHER 08/25/17 10:30 08/25/17 12:00 (Gentamicin Inj) 10 mg UNSCH PRN OTHER 08/25/17 10:30 08/25/17 12:00 (Gelfoam 12 Mm/7 Mm Top) 1 foam UNSCH PRN TOPICAL 08/25/17 10:30 (Zofran Inj) 4 mg UNSCH PRN IV PUSH 08/25/17 10:30 (Benadryl) 25 mg UNSCH PRN PO 08/25/17 10:30 (Nitrostat Sl) 0.4 mg UNSCH PRN SL 08/25/17 10:30 (Catapres) 0.1 mg UNSCH PRN PO 08/25/17 10:30 Ceftriaxone Sodium 1000 mg/ Sodium Chloride 100 ml @ 200 mls/hr Q24H IV 08/27/17 09:00 08/31/17 09:29 (Cardizem) 60 mg Q6HR PO 08/27/17 19:00 08/31/17 05:10 (Morphine Inj) 2 mg Q3H PRN IV PUSH 08/27/17 23:15 08/30/17 23:47 (SEROquel) 12.5 mg BID@09,12 PO 08/29/17 09:00 08/31/17 09:29 (Lopressor) 25 mg Q12HR PO 08/29/17 09:00 08/31/17 09:29 (SoluMEDROL INJ) 40 mg Q8H IV PUSH 08/29/17 10:00 08/31/17 09:31 (Protonix Inj) 40 mg Q12H IV PUSH 08/30/17 09:00 08/31/17 09:29 Physical Exam Vital Signs Vital Signs Date Time Temp Pulse Resp B/P (MAP) Pulse Ox O2 Delivery O2 Flow Rate FiO2 08/31/17 12:00 97.9 86 52 112/67 (82) 08/31/17 12:00 86 08/31/17 12:00 Nasal Cannula 6.00 08/31/17 10:00 97 08/31/17 09:00 103 08/31/17 09:00 98.2 103 69 115/60 (78) 88 08/31/17 08:53 92 Nasal Cannula 6.00 08/31/17 08:00 91 73 126/63 (84) 89 08/31/17 08:00 Nasal Cannula 5.00 08/31/17 08:00 91 08/31/17 06:00 100 08/31/17 04:00 86 08/31/17 04:00 97.6 86 29 138/77 (97) 91 08/31/17 04:00 91 Nasal Cannula 5.00 08/31/17 02:00 80 08/31/17 00:00 83 08/31/17 00:00 97.7 83 22 108/64 (79) 95 08/31/17 00:00 95 Nasal Cannula 5.00 08/30/17 22:00 87 08/30/17 21:18 98 Nasal Cannula 5.00 08/30/17 20:00 93 08/30/17 20:00 97 Nasal Cannula 5.00 08/30/17 20:00 97.7 93 25 121/72 (88) 97 08/30/17 18:00 96 08/30/17 16:00 118 08/30/17 16:00 99.2 118 36 91 08/30/17 16:00 91 Nasal Cannula 5.00 08/30/17 15:53 94 Nasal Cannula 5.00 Physical Exam GENERAL: This is a thin, disheveled, confused male, in no apparent distress. SKIN: No rashes, ecchymoses or lesions. Cool and dry. HEAD: Atraumatic. Normocephalic. No temporal or scalp tenderness. EYES: Pupils equal round and reactive. Extraocular motions intact. No scleral icterus. No injection or drainage. ENT: Nose without bleeding, purulent drainage or septal hematoma. Throat without erythema, tonsillar hypertrophy or exudate. Uvula midline. Airway patent. NECK: Trachea midline. No JVD or lymphadenopathy. Supple, nontender, no meningeal signs. CARDIOVASCULAR: Regular rate and rhythm without murmurs, gallops, or rubs. RESPIRATORY: Clear to auscultation. Breath sounds equal bilaterally. No wheezes , rales, or rhonchi. GASTROINTESTINAL: Abdomen soft, non-tender, nondistended. No hepato-splenomegaly , or palpable masses. No guarding. MUSCULOSKELETAL: Extremities without clubbing, cyanosis, or edema. No joint tenderness, effusion, or edema noted. No calf tenderness. Negative Homans sign bilaterally. NEUROLOGICAL: confused, lethargic. Laboratory Laboratory Tests Test 08/31/17 04:25 White Blood Count 14.3 Red Blood Count 2.49 Hemoglobin 7.8 Hematocrit 23.2 Mean Corpuscular Volume 93.2 Mean Corpuscular Hemoglobin 31.2 Mean Corpuscular Hemoglobin Concent 33.5 Red Cell Distribution Width 14.9 Platelet Count 157 Mean Platelet Volume 8.5 Neutrophils (%) (Auto) 88.1 Lymphocytes (%) (Auto) 5.3 Monocytes (%) (Auto) 6.5 Eosinophils (%) (Auto) 0.0 Basophils (%) (Auto) 0.1 Neutrophils # (Auto) 12.6 Lymphocytes # (Auto) 0.8 Monocytes # (Auto) 0.9 Eosinophils # (Auto) 0.0 Basophils # (Auto) 0.0 CBC Comment DIFF FINAL Differential Comment Blood Urea Nitrogen 31 Creatinine 0.76 Random Glucose 120 Calcium Level 8.2 Phosphorus Level 2.7 Sodium Level 143 Potassium Level 4.0 Chloride Level 110 Carbon Dioxide Level 27.0 Anion Gap 6 Estimat Glomerular Filtration Rate 98 Date/Time Source Procedure Growth Status 08/25/17 14:30 Urine Clean Catch Urine Culture - Final NO GROWTH IN 48 HOURS. Complete Result Diagram: 08/31/175 08/31/17 0425 Imaging Last Impressions Chest Tube Change 08/31/17 1035 Signed Impressions: Service Date/Time: Thursday, August 31, 2017 13:03 - CONCLUSION: Uncomplicated chest tube exchange as above. Tube was upsized to 12 Turkmen. Mega Whitfield MD Chest X-Ray 08/31/17 0000 Signed Impressions: Service Date/Time: Thursday, August 31, 2017 03:48 - CONCLUSION: 1. Small right pneumothorax, slightly larger than on August 30. Small caliber right chest tube remains. Right central line in superior vena cava. Omi Herndon MD Tunnelled Chest Tube Removal 08/30/17 0000 Signed Impressions: Service Date/Time: August 11:20 - CONCLUSION: Uncomplicated chest tube removal. This was the tube previously placed on the floor by the freelance director Mega Whitfield MD Chest Tube Insertion 08/30/17 0000 Signed Impressions: Service Date/Time: August 11:20 - CONCLUSION: Uncomplicated chest tube placement as above. Mega Whitfield MD Abdomen Ultrasound 08/27/17 0000 Signed Impressions: Service Date/Time: Sunday, August 27, 2017 09:20 - CONCLUSION: Gallbladder wall thickening without stones. Cholecystitis is not excluded. Radionuclide imaging is recommended for further evaluation if clinically indicated. Marco Lloyd MD Head CT 08/24/17 2349 Signed Impressions: Service Date/Time: Friday, August 25, 2017 00:02 - CONCLUSION: There is a hypodense subdural collection with slight left to right shift identified. The appearance suggests a chronic subdural hematoma. Duncan Odom MD Course Patient is currently extubated, but lethargic and confused. He is DNR status with Palliative Care involved. Assessment and Plan Problem List: (1) Pneumothorax on right ICD Codes: J93.9 - Pneumothorax, unspecified Status: Acute Assessment and Plan Patient has chest tube i place with adequate re-expansion of right lung and only a small air leak on 40cm suction. Recommend tapering suction as long as CXR remains stable. He appears to have significant COPD and would not likely benefit from further open chest tube placement at this time. Yasmine Babin MD Aug 31, 2017 15:03
--- NOTE | 2017-08-31 15:19 | HHI.CCPN ---
Subjective Remarks/Hospital Course Hospital Course: This is an 82-year-old male with a past medical history of hypertension and hyperlipidemia who was brought to the emergency department after being found altered. Per hospital records, the patient had been declining for the last 2-3 days. He was brought in the emergency department where he was only oriented to self. He continued to decline and became unresponsive. ABG is significant for severe combined acidosis: 7.13//78. salicylate level is 72.6, ck 1200, Cr 1.1 , wbc 12.4. I was called by Dr. Yanes about emergent transfer to the ICU. the patient came into the ICU during my conversation and I immediately evaluated the patient who at this point was unresponsive and agonal. I emergently intubated the patient (see separate procedure note for details). I then placed central line and dialysis catheter emergently, as well as arterial line for serial ABGs. I discussed the case then with Dr. Nagel who agrees with emergent dialysis. Subjective: 08/26: salicylate level still elevated, although downtrending. CKs still elevated and uptrended throughout the day. uop marginal at best. more awake than yesterday. discussed with poison control, ok to stop trending salicylate levels. 08/27 Patient is on 4L oxygen. Had large black tarry stool BM this morning Hgb dropped 7.3 from 11.6 yesterday. Afebrile. On Cardizem drip 10mg/hr. ASA level 10.5 this morning. 08/28 Patient is lying in bed in NAD. s/p transfusion 2u PRBC yesterday Hgb 8.4 this morning. Refused EGD yesterday. Off Cardizem drip. 08/29 Patient had right sided PTX last night s/p CT placement with reexpansion of right lung post CT placement. Started on Amio drip last night for Afib RVR 08/30 Patient is on partial NRB. Afebrile. 08/31 Patient is on 6L oxygen s/p [address] placed by IR yesterday. Awake with intermittent confusion. Objective Vital Signs Date Time Temp Pulse Resp B/P (MAP) Pulse Ox O2 Delivery O2 Flow Rate FiO2 08/31/17 12:00 97.9 86 52 112/67 (82) 08/31/17 12:00 Nasal Cannula 6.00 08/31/17 09:00 88 Intake and Output 08/31/17 08/31/17 09/01/17 08:00 16:00 00:00 Intake Total 480 ml 100 ml Output Total 519 ml Balance -39 ml 100 ml Result Diagram: 08/31/17 0425 08/31/17 0425 Imaging Last Impressions Chest X-Ray 08/31/17 0000 Signed Impressions: Service Date/Time: Thursday, August 31, 2017 03:48 - CONCLUSION: 1. Small right pneumothorax, slightly larger than on August 30. Small caliber right chest tube remains. Right central line in superior vena cava. Omi Herndon MD Tunnelled Chest Tube Removal 08/30/17 0000 Signed Impressions: Service Date/Time: August 11:20 - CONCLUSION: Uncomplicated chest tube removal. This was the tube previously placed on the floor by the dry chain operator Mega Whitfield MD Chest Tube Insertion 08/30/17 0000 Signed Impressions: Service Date/Time: August 11:20 - CONCLUSION: Uncomplicated chest tube placement as above. Mega Whitfield MD Abdomen Ultrasound 08/27/17 0000 Signed Impressions: Service Date/Time: Sunday, August 27, 2017 09:20 - CONCLUSION: Gallbladder wall thickening without stones. Cholecystitis is not excluded. Radionuclide imaging is recommended for further evaluation if clinically indicated. Marco Lloyd MD Head CT 08/24/17 2349 Signed Impressions: Service Date/Time: Friday, August 25, 2017 00:02 - CONCLUSION: There is a hypodense subdural collection with slight left to right shift identified. The appearance suggests a chronic subdural hematoma. Duncan Odom MD Objective Remarks GENERAL: Elderly frail cachectic male, lying in bed in [facility] HEENT: Normocephalic. Atraumatic. Pupils equal, round, reactive, conjugate. Mucous membranes are still dry. NECK: Trachea is midline. There is no JVD. CHEST: PRVC, 40% fio2, clear bilaterally. CARDIOVASCULAR: Tachycardic rate, irregularly irregular rhythm. afib by tele. ABDOMEN: Soft, scaphoid nontender, nondistended. No guarding. MUSCULOSKELETAL: Pulses 2+. No peripheral edema. NEUROLOGICAL: Awake A/P Assessment and Plan Plan by systems: Neurologic: Psychosis Toxic encephalopathy- resolved - salicylate subtherapeutic now. 10.5 yesterday -s/p emergent dialysis 2/3 - neuro checks -Psych is following Respiratory: Acute hypoxic and hypercarbic respiratory failure- Extubated 08/26 ?COPD Right sided PTX s/p CT placement Continue with oxygen keep sat >92% Bronchodilators, solumederol 40mg Q8 s/p CT by IR 08/31, CT placed on 08/29 removed by IR and new one placed yesterday. CXR this morning small right PTX, CT in place. Patien s/p CT exhnage today by IR 12Fr. CT placed. CXR post CT placement showed no PTX. Cardiovascular: Atrial fibrillation with rapid ventricular response On Cardizem 60mg Q6, Lopressor 25mg Q12 monitor HR and BP keep MAP>65mmHG Echo showed EF 50-55% Renal: Acute kidney injury-imprving Acute rhabdomyolysis -Monitor renal function, I/O's, electrolytes replacement per protocol. -s/p Emergent dialysis 2/3 d/c IVF . FEN/GI: GI bleed Anemia 2nd acute blood loss Severe acute protein calorie malnutrition --s/p EGD 08/28: Two ulcers in antrum /pyloric channel-clean base-biopsy gastritis antrum-biopsy duodenitis duodenal bulb-biopsy ,stricture distal esophagus-biopsys/p dilatation, esophagitis - GI is following Dr. Villalobos, on Protonix drip -s/p Transfusion 2units PRBC on 08/27. US abdomen: Gallbladder wall thickening without stones On full liquid diet Heme Monitor CBC, coags-s/p transfusion 2u PRBC 08/27 ID Continue Rocephin. Monitor for signs of infections ( Fever, WBC) Endocrine: hyperglycemia of critical illness SSI q6h med scale Prophylaxis: GI Prophylaxis Pepcid DVT Prophylaxis -- SCDs history of chronic subdurals, not on AC prophylaxis given GI bleed and anemia requiring blood transfusion . Lines: 2/3: right SC TLC d/c central line 2/3: chery. Patient is being discharged later today to Hospice. Palliative care is following Level 2 Eddie Barr MD Aug 31, 2017 15:19
[2017-09-01] VITALS (14 sets, daily range): BP systolic 102–137; BP diastolic 56–75; PULSE 82–108; RESP 12–21; TEMP 97.8–99; O2SAT 94–98
[2017-09-01] MEDS: methylPREDNISolone SOD SUCC 40 MG/1 ML VIAL IV PUSH SCH ×2 (02:23→10:42)
[2017-09-01] MEDS: DILTIAZEM HCL 60 MG TAB PO SCH ×3 (02:24→11:52)
[2017-09-01] MEDS: INSULIN NovoLIN REGULAR SUPPLEMENTAL SCALE SQ SCH ×3 (05:42→12:00)
[2017-09-01 05:59] LABS: AUTOMATED NEUTROPHIL # 7.5 TH/MM3 (1.8-7.7); HEMATOCRIT 23.5 % (39.0-51.0); HEMOGLOBIN 8.1 GM/DL (13.0-17.0); LYMPH % 6.9 % (9.0-44.0); LYMPHOCYTE # 0.6 TH/MM3 (1.0-4.8); MEAN CELL VOLUME 92.1 FL (80.0-100.0); MEAN CORPUSCULAR HEMOGLOBIN 31.6 PG (27.0-34.0); MEAN CORPUSCULAR HGB CONC 34.3 % (32.0-36.0); MEAN PLATELET VOLUME 8.5 FL (7.0-11.0); MONO % 5.6 % (0.0-8.0); MONOCYTE # 0.5 TH/MM3 (0-0.9); NEUT % 87.5 % (16.0-70.0); PLATELET COUNT 175 TH/MM3 (150-450); RED BLOOD COUNT 2.55 MIL/MM3 (4.50-5.90); RED CELL DISTRIBUTION WIDTH 14.7 % (11.6-17.2); WHITE BLOOD COUNT 8.6 TH/MM3 (4.0-11.0)
--- NOTE | 2017-09-01 06:07 | RADRPT ---
EXAM DATE/TIME: 09/01/2017 03:50 [facility] COMPARISON: CHEST EXPIRATION ONLY, August 31, 2017, 14:04. INDICATIONS : Shortness of breath, possible pneumothorax. MEDICAL HISTORY : HTN, HLD, A-Fib, BPH, Esophagitis, CAD, Colon polyps, Colitis SURGICAL HISTORY : Colonoscopy with biopsy, EGD with biopsy ENCOUNTER: Subsequent ACUITY: 1 week PAIN SCORE: Non-responsive. LOCATION: Bilateral chest FINDINGS: There is a small caliber right chest tube with a small right pneumothorax. Extensive subcutaneous air present. Overall airspace disease in the lungs is improved since August 31. Heart size enlarged. CONCLUSION: 1. Improved airspace disease since August 31. Small caliber right chest tube with small right pneumo thorax remains. Extensive subcutaneous air and pneumomediastinum. Omi Herndon MD on September 01, 2017 at 6:05 Board Certified Radiologist. This report was verified electronically.
[2017-09-01 06:16] LABS: CALCIUM 7.9 MG/DL (8.5-10.1); CREATININE 0.74 MG/DL (0.60-1.30)
[2017-09-01] MEDS: cefTRIAXone INJ 1,000 MG in SODIUM CHLORIDE 0.9% INJ 100 ML IV SCH (10:42)
[2017-09-01] MEDS: METOPROLOL TARTRATE 25 MG TAB PO SCH ×2 (10:45→20:26)
[2017-09-01] MEDS: QUEtiapine FUMARATE 25 MG TAB PO SCH ×2 (10:45→11:52)
[2017-09-01] MEDS: SODIUM CHLORIDE 0.9% FLUSH 10 ML FLUSH IV FLUSH SCH ×2 (10:46→20:26)
[2017-09-01] MEDS: PANTOPRAZOLE SODIUM 40 MG VIAL IV PUSH SCH ×2 (10:46→20:26)
[2017-09-01] MEDS: MORPHINE SULFATE 4 MG/ML INJ IV PUSH PRN ×2 (11:52→20:26)
--- NOTE | 2017-09-01 15:29 | HHI.CCPN ---
Subjective Remarks/Hospital Course Hospital Course: This is an 82-year-old male with a past medical history of hypertension and hyperlipidemia who was brought to the emergency department after being found altered. Per hospital records, the patient had been declining for the last 2-3 days. He was brought in the emergency department where he was only oriented to self. He continued to decline and became unresponsive. ABG is significant for severe combined acidosis: 7.13/52/78. salicylate level is 72.6, ck 1200, Cr 1.1 , wbc 12.4. I was called by Dr. Yanes about emergent transfer to the ICU. the patient came into the ICU during my conversation and I immediately evaluated the patient who at this point was unresponsive and agonal. I emergently intubated the patient (see separate procedure note for details). I then placed central line and dialysis catheter emergently, as well as arterial line for serial ABGs. I discussed the case then with Dr. Nagel who agrees with emergent dialysis. Subjective: 08/26: salicylate level still elevated, although downtrending. CKs still elevated and uptrended throughout the day. uop marginal at best. more awake than yesterday. discussed with poison control, ok to stop trending salicylate levels. 08/27 Patient is on 4L oxygen. Had large black tarry stool BM this morning Hgb dropped 7.3 from 11.6 yesterday. Afebrile. On Cardizem drip 10mg/hr. ASA level 10.5 this morning. 08/28 Patient is lying in bed in NAD. s/p transfusion 2u PRBC yesterday Hgb 8.4 this morning. Refused EGD yesterday. Off Cardizem drip. 08/29 Patient had right sided PTX last night s/p CT placement with reexpansion of right lung post CT placement. Started on Amio drip last night for Afib RVR 08/30 Patient is on partial NRB. Afebrile. 08/31 Patient is on 6L oxygen s/p [address] placed by IR yesterday. Awake with intermittent confusion. 09/01: No acute events overnight. S2 right pigtail right anterior chest on suction, subcutaneous emphysema noted right chest. Objective Vital Signs Date Time Temp Pulse Resp B/P (MAP) Pulse Ox O2 Delivery O2 Flow Rate FiO2 09/01/17 08:47 95 Nasal Cannula 3.00 09/01/17 08:00 95 09/01/17 04:00 98.0 12 128/61 (83) Intake and Output 09/01/17 09/01/17 09/02/17 08:00 16:00 00:00 Intake Total 240 ml Output Total 605 ml Balance -365 ml Result Diagram: 09/01/17 0450 09/01/17 0450 Imaging Last Impressions Chest X-Ray 08/31/17 0000 Signed Impressions: Service Date/Time: Thursday, August 31, 2017 03:48 - CONCLUSION: 1. Small right pneumothorax, slightly larger than on August 30. Small caliber right chest tube remains. Right central line in superior vena cava. Omi Herndon MD Tunnelled Chest Tube Removal 08/30/17 0000 Signed Impressions: Service Date/Time: August 11:20 - CONCLUSION: Uncomplicated chest tube removal. This was the tube previously placed on the floor by the vocational training instructor Mega Whitfield MD Chest Tube Insertion 08/30/17 0000 Signed Impressions: Service Date/Time: August 11:20 - CONCLUSION: Uncomplicated chest tube placement as above. Mega Whitfield MD Abdomen Ultrasound 08/27/17 0000 Signed Impressions: Service Date/Time: Sunday, August 27, 2017 09:20 - CONCLUSION: Gallbladder wall thickening without stones. Cholecystitis is not excluded. Radionuclide imaging is recommended for further evaluation if clinically indicated. Marco Lloyd MD Head CT 08/24/17 2349 Signed Impressions: Service Date/Time: Friday, August 25, 2017 00:02 - CONCLUSION: There is a hypodense subdural collection with slight left to right shift identified. The appearance suggests a chronic subdural hematoma. Duncan Odom MD Objective Remarks GENERAL: Elderly frail cachectic male, lying in bed in NAD HEENT: Normocephalic. Atraumatic. Pupils equal, round, reactive, conjugate. Mucous membranes are still dry. NECK: Trachea is midline. There is no JVD. CHEST: PRVC, 40% fio2, clear bilaterally. CARDIOVASCULAR: Tachycardic rate, irregularly irregular rhythm. afib by tele. ABDOMEN: Soft, scaphoid nontender, nondistended. No guarding. MUSCULOSKELETAL: Pulses 2+. No peripheral edema. NEUROLOGICAL: GCS 14 .Awake. . Periods of confusion A/P Assessment and Plan Plan by systems: Neurologic: Psychosis Toxic encephalopathy- resolved - salicylate subtherapeutic now. 10.5 yesterday -s/p emergent dialysis 2/3 - neuro checks -Psych is following Respiratory: Acute hypoxic and hypercarbic respiratory failure- Extubated 08/26 ?COPD Right sided PTX s/p CT placement Continue with oxygen keep sat >92% Bronchodilators, solumederol 40mg Q8 s/p CT by IR 08/31, CT placed on 08/29 removed by IR and new one placed yesterday. CXR this morning small right PTX, CT in place. Patien s/p CT exhnage today by IR 12Fr. CT placed. CXR post CT placement showed no PTX. Cardiovascular: Atrial fibrillation with rapid ventricular response On Cardizem 60mg Q6, Lopressor 25mg Q12 monitor HR and BP keep MAP>65mmHG Echo showed EF 50-55% Renal: Acute kidney injury-imprving Acute rhabdomyolysis -Monitor renal function, I/O's, electrolytes replacement per protocol. -s/p Emergent dialysis 2/3 d/c IVF . FEN/GI: GI bleed Anemia 2nd acute blood loss Severe acute protein calorie malnutrition --s/p EGD 08/28: Two ulcers in antrum /pyloric channel-clean base-biopsy gastritis antrum-biopsy duodenitis duodenal bulb-biopsy ,stricture distal esophagus-biopsys/p dilatation, esophagitis - GI is following Dr. Villalobos, on Protonix drip -s/p Transfusion 2units PRBC on 08/27. US abdomen: Gallbladder wall thickening without stones On full liquid diet Heme Monitor CBC, coags-s/p transfusion 2u PRBC 08/27 ID Continue Rocephin. Monitor for signs of infections ( Fever, WBC) Endocrine: hyperglycemia of critical illness SSI q6h med scale Prophylaxis: GI Prophylaxis Pepcid DVT Prophylaxis -- SCDs history of chronic subdurals, not on AC prophylaxis given GI bleed and anemia requiring blood transfusion . Lines: 2/3: right SC TLC d/c central line 2/3: chery. Patient is being discharged later today to Hospice. Palliative care is following. Tentative plan for hospice, will await disposition Level 2 Physician Annabelle Vasquez MD Sep 01, 2017 15:29
[2017-09-01] MEDS: CHLORHEXIDINE 0.12% (ORAL KIT) 15 ML CUP MT SCH (20:00)
[2017-09-02] VITALS (10 sets, daily range): BP systolic 116–126; BP diastolic 59–78; PULSE 82–103; RESP 12–22; TEMP 97.5–98; O2SAT 96–100
[2017-09-02] MEDS: methylPREDNISolone SOD SUCC 40 MG/1 ML VIAL IV PUSH SCH ×3 (00:20→17:23)
[2017-09-02] MEDS: DILTIAZEM HCL 60 MG TAB PO SCH ×5 (04:49→23:56)
[2017-09-02] MEDS: MORPHINE SULFATE 4 MG/ML INJ IV PUSH PRN ×5 (04:50→21:00)
[2017-09-02] MEDS: INSULIN NovoLIN REGULAR SUPPLEMENTAL SCALE SQ SCH ×4 (04:50→17:24)
--- NOTE | 2017-09-02 05:26 | RADRPT ---
EXAM DATE/TIME: 09/02/2017 03:57 [facility] COMPARISON: CHEST EXPIRATION ONLY, September 01, 2017, 3:50. INDICATIONS : Respiratory failure MEDICAL HISTORY : Hypertension. A-Fib, CAD SURGICAL HISTORY : ENCOUNTER: Subsequent ACUITY: 1 week PAIN SCORE: Non-responsive. LOCATION: Bilateral chest FINDINGS: A single view of the chest demonstrates a small caliber right chest tube without significant pneumoth orax. Bilateral mostly basilar airspace disease persists. Extensive subcutaneous air. Cardiomegaly. CONCLUSION: 1. Stable right chest tube without significant pneumothorax. Bilateral mostly basilar airspace diseas e remains. Omi Herndon MD on September 02, 2017 at 5:23 Board Certified Radiologist. This report was verified electronically.
[2017-09-02 05:36] LABS: HEMATOCRIT 23.7 % (39.0-51.0); MEAN CELL VOLUME 93.7 FL (80.0-100.0); MEAN CORPUSCULAR HEMOGLOBIN 31.5 PG (27.0-34.0); MEAN CORPUSCULAR HGB CONC 33.6 % (32.0-36.0); MEAN PLATELET VOLUME 8.4 FL (7.0-11.0); PLATELET COUNT 190 TH/MM3 (150-450); RED BLOOD COUNT 2.53 MIL/MM3 (4.50-5.90); WHITE BLOOD COUNT 9.6 TH/MM3 (4.0-11.0)
[2017-09-02 06:01] LABS: BICARBONATE 24.4 MEQ/L (21.0-32.0); CALCIUM 7.8 MG/DL (8.5-10.1); CREATININE 0.65 MG/DL (0.60-1.30); MAGNESIUM 2.5 MG/DL (1.5-2.5); PHOSPHORUS 2.8 MG/DL (2.5-4.9)
--- NOTE | 2017-09-02 07:22 | HHI.PR ---
Subjective Remarks In the bed, he appears upset but not in acute distress, Says he wants to eat but he can't and he needs helps. No fever or chills. He has no pain at this time. No n/v/d/c. Says he has a fairly good appetite. Objective Vitals Vital Signs Date Time Temp Pulse Resp B/P (MAP) Pulse Ox O2 Delivery O2 Flow Rate FiO2 09/02/17 06:20 82 09/02/17 04:00 98.0 87 12 126/68 (87) 99 09/02/17 04:00 87 09/02/17 04:00 99 Nasal Cannula 3.00 09/02/17 02:00 90 09/02/17 00:00 97.5 85 22 120/59 (79) 99 09/02/17 00:00 100 Nasal Cannula 3.00 09/02/17 00:00 85 09/01/17 22:00 82 09/01/17 20:22 95 Nasal Cannula 3.00 09/01/17 20:00 106 09/01/17 20:00 98.1 106 18 102/56 (71) 98 09/01/17 20:00 98 Nasal Cannula 3.00 09/01/17 18:06 103 09/01/17 16:00 99.0 98 15 114/69 (84) 96 09/01/17 16:00 96 Nasal Cannula 3.00 09/01/17 16:00 98 09/01/17 14:00 108 09/01/17 12:00 99 09/01/17 12:00 97 Nasal Cannula 3.00 09/01/17 12:00 98.0 99 16 135/69 (91) 96 09/01/17 10:00 107 09/01/17 08:47 95 Nasal Cannula 3.00 09/01/17 08:00 95 09/01/17 08:00 95 Nasal Cannula 3.00 09/01/17 08:00 97.8 95 21 137/75 (95) 97 I/O 09/01/17 09/01/17 09/01/17 09/02/17 09/02/17 09/02/17 07:00 15:00 23:00 07:00 15:00 23:00 Intake Total 240 ml 142 ml 300 ml Output Total 605 ml 830 ml 600 ml Balance -365 ml -688 ml -300 ml Intake Oral 240 ml 142 ml 300 ml Output Urine Total 550 ml 800 ml 600 ml Chest Tube Drainage Total 55 ml 30 ml # Bowel Movements 0 0 0 Result Diagram: 09/02/173 09/02/17 0453 Imaging Last Impressions Chest X-Ray 09/02/17 0600 Signed Impressions: Service Date/Time: Saturday, September 02, 2017 03:57 - CONCLUSION: 1. Stable right chest tube without significant pneumothorax. Bilateral mostly basilar airspace disease remains. Omi Herndon MD Chest Tube Change 08/31/17 1035 Signed Impressions: Service Date/Time: Thursday, August 31, 2017 13:03 - CONCLUSION: Uncomplicated chest tube exchange as above. Tube was upsized to 12 Nepali. Mega Whitfield MD Tunnelled Chest Tube Removal 08/30/17 0000 Signed Impressions: Service Date/Time: August 11:20 - CONCLUSION: Uncomplicated chest tube removal. This was the tube previously placed on the floor by the administrative assistant receptionist Mega Whitfield MD Chest Tube Insertion 08/30/17 0000 Signed Impressions: Service Date/Time: August 11:20 - CONCLUSION: Uncomplicated chest tube placement as above. Mega Whitfield MD Abdomen Ultrasound 08/27/17 0000 Signed Impressions: Service Date/Time: Sunday, August 27, 2017 09:20 - CONCLUSION: Gallbladder wall thickening without stones. Cholecystitis is not excluded. Radionuclide imaging is recommended for further evaluation if clinically indicated. Marco Lloyd MD Head CT 08/24/17 2349 Signed Impressions: Service Date/Time: Friday, August 25, 2017 00:02 - CONCLUSION: There is a hypodense subdural collection with slight left to right shift identified. The appearance suggests a chronic subdural hematoma. Duncan Odom MD Objective Remarks GENERAL: Elderly frail cachectic male, lying in bed, appears in NAD HEENT: Normocephalic. Atraumatic. Pupils equal, round, reactive, conjugate. Mucous membranes are still dry. NECK: Trachea is midline. There is no JVD. CHEST: Clear bilaterally. No wheezing. CARDIOVASCULAR: Tachycardic rate, irregularly irregular rhythm. afib by tele. ABDOMEN: Soft, scaphoid nontender, nondistended. No guarding. MUSCULOSKELETAL: Pulses 2+. No peripheral edema. NEUROLOGICAL: GCS 14 .Awake. . Periods of confusion A/P Assessment and Plan Neurologic: Psychosis Toxic encephalopathy- resolved - salicylate subtherapeutic now. 10.5 yesterday -s/p emergent dialysis 2/3 - neuro checks -Psych is following Respiratory: Acute hypoxic and hypercarbic respiratory failure- Extubated 08/26 ?COPD Right sided PTX s/p CT placement Continue with oxygen keep sat >92% Bronchodilators, solumederol 40mg Q8 s/p CT by IR 08/31, CT placed on 08/29 removed by IR and new one placed yesterday. CXR this morning small right PTX, CT in place. Patien s/p CT exhnage today by IR 12Fr. CT placed. CXR post CT placement showed no PTX. Cardiovascular: Atrial fibrillation with rapid ventricular response On Cardizem 60mg Q6, Lopressor 25mg Q12 monitor HR and BP keep MAP>65mmHG Echo showed EF 50-55% Renal: Acute kidney injury-imprving Acute rhabdomyolysis -Monitor renal function, I/O's, electrolytes replacement per protocol. -s/p Emergent dialysis 2/3 d/c IVF . FEN/GI: GI bleed Anemia 2nd acute blood loss Severe acute protein calorie malnutrition --s/p EGD 08/28: Two ulcers in antrum /pyloric channel-clean base-biopsy gastritis antrum-biopsy duodenitis duodenal bulb-biopsy ,stricture distal esophagus-biopsys/p dilatation, esophagitis - GI is following Dr. Villalobos, on Protonix drip -s/p Transfusion 2units PRBC on 08/27. US abdomen: Gallbladder wall thickening without stones On full liquid diet Heme Monitor CBC, coags-s/p transfusion 2u PRBC / ID Continue Rocephin. Monitor for signs of infections ( Fever, WBC) Endocrine: hyperglycemia of critical illness SSI q6h med scale Prophylaxis: GI Prophylaxis Pepcid DVT Prophylaxis -- SCDs history of chronic subdurals, not on AC prophylaxis given GI bleed and anemia requiring blood transfusion . Lines: 2/3: right SC TLC d/c central line 2/3: chery. Palliative care is following. Tentative plan for hospice, will await disposition Kanwal Lynne MD Sep 02, 2017 07:22
[2017-09-02] MEDS: CHLORHEXIDINE 0.12% (ORAL KIT) 15 ML CUP MT SCH ×2 (08:00→20:00)
[2017-09-02] MEDS: PANTOPRAZOLE SODIUM 40 MG VIAL IV PUSH SCH ×2 (10:02→20:50)
[2017-09-02] MEDS: METOPROLOL TARTRATE 25 MG TAB PO SCH ×2 (10:03→20:50)
[2017-09-02] MEDS: cefTRIAXone INJ 1,000 MG in SODIUM CHLORIDE 0.9% INJ 100 ML IV SCH (10:03)
[2017-09-02] MEDS: QUEtiapine FUMARATE 25 MG TAB PO SCH ×2 (10:03→12:56)
[2017-09-02] MEDS: SODIUM CHLORIDE 0.9% FLUSH 10 ML FLUSH IV FLUSH SCH ×2 (12:57→20:50)
[2017-09-03] VITALS: BP 114/69; PULSE 106; RESP 19; TEMP 97.7; O2SAT 97
[2017-09-03] MEDS: methylPREDNISolone SOD SUCC 40 MG/1 ML VIAL IV PUSH SCH ×3 (02:24→16:16)
[2017-09-03] MEDS: INSULIN NovoLIN REGULAR SUPPLEMENTAL SCALE SQ SCH ×4 (06:00→16:16)
[2017-09-03] MEDS: DILTIAZEM HCL 60 MG TAB PO SCH ×3 (06:16→16:16)
[2017-09-03] MEDS: MORPHINE SULFATE 4 MG/ML INJ IV PUSH PRN ×5 (06:17→20:57)
[2017-09-03 08:00] VITALS: BP 122/55; PULSE 85; RESP 10; TEMP 97.5; O2SAT 11
[2017-09-03] MEDS: CHLORHEXIDINE 0.12% (ORAL KIT) 15 ML CUP MT SCH ×2 (08:00→20:56)
[2017-09-03 08:45] VITALS: O2SAT 97
[2017-09-03] MEDS: cefTRIAXone INJ 1,000 MG in SODIUM CHLORIDE 0.9% INJ 100 ML IV SCH (09:19)
[2017-09-03] MEDS: PANTOPRAZOLE SODIUM 40 MG VIAL IV PUSH SCH ×2 (09:19→20:56)
[2017-09-03] MEDS: METOPROLOL TARTRATE 25 MG TAB PO SCH ×2 (09:20→20:56)
[2017-09-03] MEDS: SODIUM CHLORIDE 0.9% FLUSH 10 ML FLUSH IV FLUSH SCH ×2 (09:20→20:56)
[2017-09-03] MEDS: QUEtiapine FUMARATE 25 MG TAB PO SCH ×2 (09:20→12:57)
--- NOTE | 2017-09-03 11:59 | RADRPT ---
EXAM DATE/TIME: 09/03/2017 11:18 [facility] COMPARISON: CHEST SINGLE AP, September 02, 2017, 3:57. INDICATIONS : Evaluate for pneumothorax. MEDICAL HISTORY : None. SURGICAL HISTORY : None. ENCOUNTER: Subsequent ACUITY: 1 week PAIN SCORE: 0/10 LOCATION: chest FINDINGS: Well-positioned right apical chest tube. Redemonstration of diffuse N. emphysema, slightly improved f rom prior exam. No significant pneumothorax is noted. Stable bibasilar airspace disease. Cardiomedias tinal contours are stable. Remainder of the exam is unchanged. CONCLUSION: 1. Well-positioned right apical chest tube without significant pneumothorax. 2. Stable bibasilar airspace disease. Ric Gómez MD on September 03, 2017 at 11:56 Board Certified Radiologist. This report was verified electronically.
--- NOTE | 2017-09-03 13:44 | HHI.PR ---
Subjective Remarks The patient was seen earlier in the morning. She is in the bed, pleasantly confused. Says he has abdominal pain however is fairly controlled by medications. No nausea vomiting no diarrhea constipation. No fever or chills overnight. Vital signs are stable Objective Vitals Vital Signs Date Time Temp Pulse Resp B/P (MAP) Pulse Ox O2 Delivery O2 Flow Rate FiO2 09/03/17 08:45 97 Nasal Cannula 2.00 09/03/17 08:00 97.5 85 10 122/55 (77) 11 09/03/17 08:00 Nasal Cannula 3.00 09/03/17 08:00 85 09/03/17 00:00 97.7 106 19 114/69 (84) 97 09/03/17 00:00 106 09/02/17 21:00 97 Nasal Cannula 2.00 09/02/17 20:00 95 09/02/17 20:00 97.8 95 16 116/67 (83) 96 09/02/17 20:00 96 Nasal Cannula 3.00 09/02/17 16:00 97 I/O 09/02/17 09/02/17 09/02/17 09/03/17 09/03/17 09/03/17 07:00 15:00 23:00 07:00 15:00 23:00 Intake Total 300 ml 1200 ml 180 ml Output Total 600 ml 1634 ml Balance -300 ml 1200 ml -1454 ml Intake Oral 300 ml 1200 ml 180 ml Output Urine Total 600 ml 1600 ml Chest Tube Drainage Total 34 ml # Bowel Movements 0 0 0 Result Diagram: 09/02/17 0453 09/03/17 0205 Imaging Last Impressions Chest X-Ray 09/03/17 0000 Signed Impressions: Service Date/Time: Sunday, September 03, 2017 11:18 - CONCLUSION: 1. Well-positioned right apical chest tube without significant pneumothorax. 2. Stable bibasilar airspace disease. Ric Gómez MD Chest Tube Change 08/31/17 1035 Signed Impressions: Service Date/Time: Thursday, August 31, 2017 13:03 - CONCLUSION: Uncomplicated chest tube exchange as above. Tube was upsized to 12 Japanese. Mega Whitfield MD Tunnelled Chest Tube Removal 08/30/17 0000 Signed Impressions: Service Date/Time: August 11:20 - CONCLUSION: Uncomplicated chest tube removal. This was the tube previously placed on the floor by the professor of mathematics Mega Whitfield MD Chest Tube Insertion 08/30/17 0000 Signed Impressions: Service Date/Time: August 11:20 - CONCLUSION: Uncomplicated chest tube placement as above. Mega Whitfield MD Abdomen Ultrasound 08/27/17 0000 Signed Impressions: Service Date/Time: Sunday, August 27, 2017 09:20 - CONCLUSION: Gallbladder wall thickening without stones. Cholecystitis is not excluded. Radionuclide imaging is recommended for further evaluation if clinically indicated. Marco Lloyd MD Head CT 08/24/17 2349 Signed Impressions: Service Date/Time: Friday, August 25, 2017 00:02 - CONCLUSION: There is a hypodense subdural collection with slight left to right shift identified. The appearance suggests a chronic subdural hematoma. Duncan Odom MD Objective Remarks GENERAL: Elderly frail cachectic male, lying in bed, appears in NAD HEENT: Normocephalic. Atraumatic. Pupils equal, round, reactive, conjugate. Mucous membranes are still dry. NECK: Trachea is midline. There is no JVD. CHEST: Clear bilaterally. No wheezing. CARDIOVASCULAR: Tachycardic rate, irregularly irregular rhythm. afib by tele. ABDOMEN: Soft, scaphoid nontender, nondistended. No guarding. MUSCULOSKELETAL: Pulses 2+. No peripheral edema. NEUROLOGICAL: GCS 14 .Awake. . Periods of confusion A/P Assessment and Plan Neurologic: Psychosis Toxic encephalopathy- resolved - salicylate subtherapeutic now. -s/p emergent dialysis / - neuro checks -Psych is following Respiratory: Acute hypoxic and hypercarbic respiratory failure- Extubated 08/26 ?COPD Right sided PTX s/p CT placement Continue with oxygen keep sat >92% Bronchodilators, solumederol taper s/p CT by IR 08/31, CT placed on 08/29 removed by IR CXR small right PTX, CT in place. Patient s/p CT exchange by IR 12Fr. CT placed. CXR post CT placement showed no PTX. Cardiovascular: Atrial fibrillation with rapid ventricular response On Cardizem 60mg Q6, Lopressor 25mg Q12 monitor HR and BP keep MAP>65mmHG Echo showed EF 50-55% Renal: Acute kidney injury-improving Acute rhabdomyolysis -Monitor renal function, I/O's, electrolytes replacement per protocol. -s/p Emergent dialysis 2/3 d/c IVF . FEN/GI: GI bleed Anemia 2nd acute blood loss Severe acute protein calorie malnutrition --s/p EGD 08/28: Two ulcers in antrum /pyloric channel-clean base-biopsy gastritis antrum-biopsy duodenitis duodenal bulb-biopsy ,stricture distal esophagus-biopsys/p dilatation, esophagitis - GI is following Dr. Villalobos, on Protonix drip -s/p Transfusion 2units PRBC on 08/27. US abdomen: Gallbladder wall thickening without stones On full liquid diet Heme Monitor CBC, coags-s/p transfusion 2u PRBC 08/27 ID Continue Rocephin. Monitor for signs of infections ( Fever, WBC) Endocrine: hyperglycemia of critical illness SSI q6h med scale Prophylaxis: GI Prophylaxis Pepcid DVT Prophylaxis -- SCDs history of chronic subdurals, not on AC prophylaxis given GI bleed and anemia requiring blood transfusion . Lines: 2/3: right SC TLC d/c central line 2/3: chery. Palliative care is following. Tentative plan for hospice, will await disposition Kanwal Lynne MD Sep 03, 2017 13:44
[2017-09-03 20:00] VITALS: BP 118/66; PULSE 82; RESP 14; TEMP 98.9; O2SAT 97
[2017-09-03 20:38] VITALS: O2SAT 98
[2017-09-04] VITALS (16 sets, daily range): BP systolic 106–128; BP diastolic 55–73; PULSE 76–92; RESP 8–23; TEMP 97.7–98; O2SAT 96–100
[2017-09-04] MEDS: DILTIAZEM HCL 60 MG TAB PO SCH ×4 (00:25→18:27)
[2017-09-04] MEDS: MORPHINE SULFATE 4 MG/ML INJ IV PUSH PRN ×4 (00:59→20:28)
[2017-09-04] MEDS: methylPREDNISolone SOD SUCC 40 MG/1 ML VIAL IV PUSH SCH ×3 (02:41→18:27)
[2017-09-04] MEDS: INSULIN NovoLIN REGULAR SUPPLEMENTAL SCALE SQ SCH ×4 (05:43→18:29)
[2017-09-04] MEDS: CHLORHEXIDINE 0.12% (ORAL KIT) 15 ML CUP MT SCH ×2 (08:00→20:27)
[2017-09-04] MEDS: SODIUM CHLORIDE 0.9% FLUSH 10 ML FLUSH IV FLUSH SCH ×2 (09:03→20:27)
[2017-09-04] MEDS: SODIUM CHLORIDE 0.9% FLUSH 10 ML FLUSH IV FLUSH PRN (09:03)
[2017-09-04] MEDS: PANTOPRAZOLE SODIUM 40 MG VIAL IV PUSH SCH ×2 (09:04→20:28)
[2017-09-04] MEDS: METOPROLOL TARTRATE 25 MG TAB PO SCH ×2 (09:04→20:28)
[2017-09-04] MEDS: QUEtiapine FUMARATE 25 MG TAB PO SCH ×2 (09:04→12:01)
[2017-09-04] MEDS: cefTRIAXone INJ 1,000 MG in SODIUM CHLORIDE 0.9% INJ 100 ML IV SCH (09:04)
--- NOTE | 2017-09-04 11:20 | HHI.HCPN ---
Palliative care follow-up for ongoing communication and assistance with goals of care. Sons have elected hospice services. Consents faxed yesterday, appears son wanted to have an disability attorney review consents prior to signing. Left message with son Franklyn to answer any questions/concerns. No answer, left message requesting call back with palliative care contact information. Hospice mortgage processing clerk notified. Palliative care will continue to follow. Katina Alegria, PROCESS DEVELOPMENT MANAGER Sep 04, 2017 11:20
--- NOTE | 2017-09-04 14:46 | HHI.PYPN ---
Subjective Remarks The patient was seen today for psychiatric reevaluation. Chart was reviewed. At the beginning patient was irritable, oppositional, refusing to talk to me, but he was sensitive to redirection and reassurance. Patient continues to show some level of paranoia, and continues to have the delusion of being murdered and . However, the patient today was able to have a logical conversation with me, he is completely oriented 3. There is no fluctuation of consciousness or attention deficit at this moment. There is no episodes of agitation or aggressive behavior reported. Review of Systems Psychiatric: COMPLAINS OF: Confusion, Delusions Except as stated in HPI: all other systems reviewed are Neg Mental Status Examination Appearance: Appropriate Consciousness: Alert Orientation: Person, Place Motor Activity: Normal gait Speech: Unremarkable Language: Adequate Fund of Knowledge: Adequate Attention and Concentration: Adequate Memory: Impaired Mood: Irritable Affect: Irritable Thought Process & Associations: Intact Thought Content: Appropriate Hallucination Type: None Delusion Type: Other (Nihilistc ) Suicidal Ideation: No Suicidal Plan: No Suicidal Intention: No Homicidal Ideation: No Homicidal Plan: No Homicidal Intention: No Insight: Fair Judgment: Impulsive Results Labs Date/Time Source Procedure Growth Status 08/25/17 14:30 Urine Clean Catch Urine Culture - Final NO GROWTH IN 48 HOURS. 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 Assessment & Plan Estimated LOS: days Justification for Cont. Inpt. No psychiatric admission indicated at this moment. Kwabena Cohn MD Sep 04, 2017 14:46
--- NOTE | 2017-09-04 16:32 | RADRPT ---
EXAM DATE/TIME: 09/04/2017 15:00 [facility] COMPARISON: CHEST EXPIRATION ONLY, September 01, 2017, 3:50. INDICATIONS : Pneumothorax. MEDICAL HISTORY : None. SURGICAL HISTORY : None. ENCOUNTER: Subsequent ACUITY: 3 days PAIN SCORE: 0/10 LOCATION: Right chest. FINDINGS: A single frontal expiratory view of the chest was performed. Total thoracostomy tube appropriately p ositioned in the right apex. No pneumothorax. Bibasilar consolidation/effusion somewhat worse on the left. Heart size is prominent. Deep tissue emphysematous changes about both hemithoraces. Degenerati ve spurring of the dorsal spine CONCLUSION: 1. No pneumothorax. Thoracostomy tube is stable in position. 2. Bibasilar areas of consolidation/effusion. Stable cardiomegaly. 3. Deep tissue emphysematous changes about both hemithoraces Mega Whitfield MD on September 04, 2017 at 16:27 Board Certified Radiologist. This report was verified electronically.
--- NOTE | 2017-09-04 17:15 | RADRPT ---
EXAM DATE/TIME: 09/04/2017 00:00 [facility] COMPARISON: CHEST TUBE REMOVAL, RIGHT, August 30, 2017, 11:20. INDICATIONS : no pneumo no airleak on waterseal DEVICE(S): 1.) Vaseline occlusive dressinggauze+tape PROCEDURE : Chest tube removal. Using aseptic technique the previously placed chest tube was easily removed in one piece and Vaseline gauze and sterile dressing was applied. Chest radiograph is to be obtained. CONCLUSION: Uncomplicated chest tube removal. Mega Whitfield MD on September 04, 2017 at 17:12 Board Certified Radiologist. This report was verified electronically.
--- NOTE | 2017-09-04 17:25 | RADRPT ---
EXAM DATE/TIME: 09/04/2017 17:06 [facility] COMPARISON: CHEST EXPIRATION ONLY, September 04, 2017, 15:00. INDICATIONS : Chest tube removal. MEDICAL HISTORY : None. SURGICAL HISTORY : None. ENCOUNTER: Subsequent ACUITY: 2 days PAIN SCORE: 0/10 LOCATION: Right chest FINDINGS: A single frontal expiratory view of the chest was performed. Chest tube has been removed. No recurren t pneumothorax. Stable bibasilar airspace disease/effusions. Stable deep tissue emphysematous changes about both hemithoraces. Heart size remains prominent. CONCLUSION: 1. Chest tube has been removed. No pneumothorax. 2. Stable bibasilar airspace disease/effusions. Stable deep tissue emphysematous changes about both h emithoraces. Mega Whitfield MD on September 04, 2017 at 17:21 Board Certified Radiologist. This report was verified electronically.
--- NOTE | 2017-09-04 19:16 | HHI.PR ---
Subjective Remarks The patient was seen earlier in the morning. He complained of pain earlier in the morning and was given morphine. He has no pain at this time. He feels very tired. Not eating much. No nausea no vomiting diarrhea or constipation. Denies fever or chills. Discussed with IR today. Imaging reviewed and findings discussed with IR. Will have possible removal of chest tube today. Objective Vitals Vital Signs Date Time Temp Pulse Resp B/P (MAP) Pulse Ox O2 Delivery O2 Flow Rate FiO2 09/04/17 18:00 80 09/04/17 18:00 80 10 118/56 (76) 100 09/04/17 17:00 88 11 115/58 (77) 100 09/04/17 16:00 98.0 81 11 109/58 (75) 97 09/04/17 16:00 81 09/04/17 15:00 79 10 112/59 (76) 99 09/04/17 14:00 80 10 118/55 (76) 100 09/04/17 14:00 80 09/04/17 13:00 89 10 113/57 (75) 100 09/04/17 12:00 97.8 83 8 116/73 (87) 100 09/04/17 12:00 83 09/04/17 11:00 86 14 120/61 (80) 100 09/04/17 10:00 89 12 123/59 (80) 98 09/04/17 10:00 89 09/04/17 09:00 83 11 122/59 (80) 99 09/04/17 08:00 97 Nasal Cannula 3.00 09/04/17 08:00 97.9 79 12 116/58 (77) 97 09/04/17 08:00 79 09/04/17 07:00 76 10 106/56 (73) 96 09/04/17 00:00 92 09/03/17 20:38 98 Nasal Cannula 2.00 09/03/17 20:00 98.9 82 14 118/66 (83) 97 09/03/17 20:00 95 Nasal Cannula 3.00 40 I/O 09/03/17 09/03/17 09/03/17 09/04/17 09/04/17 09/04/17 07:00 15:00 23:00 07:00 15:00 23:00 Intake Total 180 ml 510 ml 500 ml Output Total 1634 ml 1600 ml 854 ml 750 ml Balance -1454 ml -1090 ml -354 ml -750 ml Intake Oral 180 ml 510 ml 500 ml Output Urine Total 1600 ml 1600 ml 850 ml 750 ml Stool Total 0 ml Chest Tube Drainage Total 34 ml 4 ml # Voids 0 # Bowel Movements 0 0 0 Result Diagram: 09/02/17 0453 09/03/17 0205 Imaging Last Impressions Chest X-Ray 09/04/17 1645 Signed Impressions: Service Date/Time: Monday, September 04, 2017 17:06 - CONCLUSION: 1. Chest tube has been removed. No pneumothorax. 2. Stable bibasilar airspace disease/effusions. Stable deep tissue emphysematous changes about both hemithoraces. Mega Whitfield MD Tunnelled Chest Tube Removal 09/04/17 0000 Signed Impressions: Service Date/Time: Monday, September 04, 2017 00:00 - CONCLUSION: Uncomplicated chest tube removal. Mega Whitfield MD Chest Tube Change 08/31/17 1035 Signed Impressions: Service Date/Time: Thursday, August 31, 2017 13:03 - CONCLUSION: Uncomplicated chest tube exchange as above. Tube was upsized to 12 Brazilian. Mega Whitfield MD Chest Tube Insertion 08/30/17 0000 Signed Impressions: Service Date/Time: August 11:20 - CONCLUSION: Uncomplicated chest tube placement as above. Mega Whitfield MD Abdomen Ultrasound 08/27/17 0000 Signed Impressions: Service Date/Time: Sunday, August 27, 2017 09:20 - CONCLUSION: Gallbladder wall thickening without stones. Cholecystitis is not excluded. Radionuclide imaging is recommended for further evaluation if clinically indicated. Marco Lloyd MD Head CT 08/24/17 2349 Signed Impressions: Service Date/Time: Friday, August 25, 2017 00:02 - CONCLUSION: There is a hypodense subdural collection with slight left to right shift identified. The appearance suggests a chronic subdural hematoma. Duncan Odom MD Objective Remarks GENERAL: Elderly frail cachectic male, lying in bed, appears in NAD HEENT: Normocephalic. Atraumatic. Pupils equal, round, reactive, conjugate. Mucous membranes are still dry. NECK: Trachea is midline. There is no JVD. CHEST: Clear bilaterally. No wheezing. CARDIOVASCULAR: Tachycardic rate, irregularly irregular rhythm. afib by tele. ABDOMEN: Soft, scaphoid nontender, nondistended. No guarding. MUSCULOSKELETAL: Pulses 2+. No peripheral edema. NEUROLOGICAL: GCS 14 .Awake. . Periods of confusion A/P Assessment and Plan Neurologic: Psychosis Toxic encephalopathy- resolved - salicylate subtherapeutic now. -s/p emergent dialysis 2/3 - neuro checks -Psych is following Respiratory: Acute hypoxic and hypercarbic respiratory failure- Extubated 08/26 ?COPD Right sided PTX s/p CT placement Discussed with IR 08/23/10/07. Imaging reviewed and findings discussed with IR. Will have possible removal of chest tube today. Continue with oxygen keep sat >92% Bronchodilators, solumederol taper s/p CT by IR 08/31, CT placed on 08/29 removed by IR CXR small right PTX, CT in place. Patient s/p CT exchange by IR 12Fr. CT placed. CXR post CT placement showed no PTX. Cardiovascular: Atrial fibrillation with rapid ventricular response On Cardizem 60mg Q6, Lopressor 25mg Q12 monitor HR and BP keep MAP>65mmHG Echo showed EF 50-55% Renal: Acute kidney injury-improving Acute rhabdomyolysis -Monitor renal function, I/O's, electrolytes replacement per protocol. -s/p Emergent dialysis 2/3 d/c IVF . FEN/GI: GI bleed Anemia 2nd acute blood loss Severe acute protein calorie malnutrition --s/p EGD 08/28: Two ulcers in antrum /pyloric channel-clean base-biopsy gastritis antrum-biopsy duodenitis duodenal bulb-biopsy ,stricture distal esophagus-biopsys/p dilatation, esophagitis - GI is following Dr. Villalobos, on Protonix drip -s/p Transfusion 2units PRBC on 08/27. US abdomen: Gallbladder wall thickening without stones On full liquid diet Heme Monitor CBC, coags-s/p transfusion 2u PRBC 08/27 ID Continue Rocephin. Monitor for signs of infections ( Fever, WBC) Endocrine: hyperglycemia of critical illness SSI q6h med scale Prophylaxis: GI Prophylaxis Pepcid DVT Prophylaxis -- SCDs history of chronic subdurals, not on AC prophylaxis given GI bleed and anemia requiring blood transfusion . Lines: 2/3: right SC TLC d/c central line 2/3: chery. Discussed with the patient, ICU nurse, IR. Palliative care is following. Tentative plan for hospice, will await disposition Kanwal Lynne MD Sep 04, 2017 19:16
[2017-09-05] VITALS (14 sets, daily range): BP systolic 112–130; BP diastolic 56–65; PULSE 78–86; RESP 8–13; TEMP 97.7–98; O2SAT 96–99
[2017-09-05] MEDS: DILTIAZEM HCL 60 MG TAB PO SCH ×6 (00:17→23:57)
[2017-09-05] MEDS: INSULIN NovoLIN REGULAR SUPPLEMENTAL SCALE SQ SCH ×4 (00:18→18:00)
[2017-09-05] MEDS: MORPHINE SULFATE 4 MG/ML INJ IV PUSH PRN ×5 (00:19→20:48)
[2017-09-05] MEDS: methylPREDNISolone SOD SUCC 40 MG/1 ML VIAL IV PUSH SCH ×3 (02:37→18:08)
[2017-09-05 06:57] LABS: AUTOMATED NEUTROPHIL # 14.2 TH/MM3 (1.8-7.7); BASOPHIL % 0.2 % (0.0-2.0); HEMATOCRIT 25.6 % (39.0-51.0); HEMOGLOBIN 8.6 GM/DL (13.0-17.0); LYMPH % 2.1 % (9.0-44.0); LYMPHOCYTE # 0.3 TH/MM3 (1.0-4.8); MEAN CELL VOLUME 92.5 FL (80.0-100.0); MEAN CORPUSCULAR HEMOGLOBIN 31.2 PG (27.0-34.0); MEAN CORPUSCULAR HGB CONC 33.7 % (32.0-36.0); MEAN PLATELET VOLUME 7.9 FL (7.0-11.0); MONOCYTE # 0.4 TH/MM3 (0-0.9); NEUT % 94.7 % (16.0-70.0); PLATELET COUNT 286 TH/MM3 (150-450); RED BLOOD COUNT 2.76 MIL/MM3 (4.50-5.90); RED CELL DISTRIBUTION WIDTH 14.7 % (11.6-17.2)
[2017-09-05 07:17] LABS: BICARBONATE 32.8 MEQ/L (21.0-32.0); CALCIUM 7.9 MG/DL (8.5-10.1); CREATININE 0.68 MG/DL (0.60-1.30)
[2017-09-05 08:18] LABS: BANDS 1 % (0-6); CORRECTED NUCLEATED RBC 1 /100 WBC (0-0); LYMPHOCYTES 1 % (9-44); MONOCYTES 2 % (0-8); MYELOCYTES 1 % (0-0); NEUTROPHIL # MANUAL DIFF 14.6 TH/MM3 (1.8-7.7); NUCLEATED RED BLOOD CELL 1 (0-0); POLYS (SEG NEUTROPHILS) 95 % (16-70)
[2017-09-05] MEDS: QUEtiapine FUMARATE 25 MG TAB PO SCH ×2 (08:24→12:59)
[2017-09-05] MEDS: METOPROLOL TARTRATE 25 MG TAB PO SCH ×2 (08:25→20:46)
[2017-09-05] MEDS: SODIUM CHLORIDE 0.9% FLUSH 10 ML FLUSH IV FLUSH SCH ×2 (08:25→20:48)
[2017-09-05] MEDS: PANTOPRAZOLE SODIUM 40 MG VIAL IV PUSH SCH ×2 (08:25→20:47)
[2017-09-05] MEDS: cefTRIAXone INJ 1,000 MG in SODIUM CHLORIDE 0.9% INJ 100 ML IV SCH (08:26)
[2017-09-05] MEDS: CHLORHEXIDINE 0.12% (ORAL KIT) 15 ML CUP MT SCH ×2 (08:26→20:00)
--- NOTE | 2017-09-05 08:43 | HHI.PR ---
Subjective Remarks The patient is in bed. Says he has some pain in his chest. Chest tube was removed yesterday. He does not appear in acute distress at this time. He is breathing better. He does not appear in pain. More pleasant today. No fever chills no nausea or vomiting no diarrhea or constipation. Eating but not well. Objective Vitals Vital Signs Date Time Temp Pulse Resp B/P (MAP) Pulse Ox O2 Delivery O2 Flow Rate FiO2 09/05/17 07:45 97 Nasal Cannula 2.00 09/05/17 06:00 80 09/05/17 04:00 79 09/05/17 04:00 97.7 79 10 130/65 (86) 97 09/05/17 02:00 85 09/05/17 00:00 80 09/05/17 00:00 97.8 80 10 118/63 (81) 96 09/04/17 22:00 84 09/04/17 22:00 97.8 84 12 128/64 (85) 98 09/04/17 22:00 84 09/04/17 21:37 100 Nasal Cannula 2.00 09/04/17 20:00 86 09/04/17 20:00 97.7 86 23 108/60 (76) 99 09/04/17 20:00 96 Nasal Cannula 3.00 40 09/04/17 18:00 80 09/04/17 18:00 80 10 118/56 (76) 100 09/04/17 17:00 88 11 115/58 (77) 100 09/04/17 16:00 98.0 81 11 109/58 (75) 97 09/04/17 16:00 81 09/04/17 15:00 79 10 112/59 (76) 99 09/04/17 14:00 80 10 118/55 (76) 100 09/04/17 14:00 80 09/04/17 13:00 89 10 113/57 (75) 100 09/04/17 12:00 97.8 83 8 116/73 (87) 100 09/04/17 12:00 83 09/04/17 11:00 86 14 120/61 (80) 100 09/04/17 10:00 89 12 123/59 (80) 98 09/04/17 10:00 89 09/04/17 09:00 83 11 122/59 (80) 99 I/O 09/04/17 09/04/17 09/04/17 09/05/17 09/05/17 09/05/17 07:00 15:00 23:00 07:00 15:00 23:00 Intake Total 500 ml 500 ml Output Total 854 ml 750 ml 850 ml Balance -354 ml -750 ml -350 ml Intake Oral 500 ml 500 ml Output Urine Total 850 ml 750 ml 850 ml Stool Total 0 ml 0 ml Chest Tube Drainage Total 4 ml # Bowel Movements 0 Result Diagram: 09/05/17 0535 09/05/17 0535 Objective Remarks GENERAL: Elderly frail cachectic male, lying in bed, appears in NAD HEENT: Normocephalic. Atraumatic. Pupils equal, round, reactive, conjugate. Mucous membranes are still dry. NECK: Trachea is midline. There is no JVD. CHEST: Clear bilaterally. No wheezing. CARDIOVASCULAR: Tachycardic rate, irregularly irregular rhythm. afib by tele. ABDOMEN: Soft, scaphoid nontender, nondistended. No guarding. MUSCULOSKELETAL: Pulses 2+. No peripheral edema. NEUROLOGICAL: GCS 14 .Awake. . Periods of confusion A/P Assessment and Plan Neurologic: Psychosis Toxic encephalopathy- resolved - salicylate subtherapeutic now. -s/p emergent dialysis /3 - neuro checks -Psych is following Respiratory: Acute hypoxic and hypercarbic respiratory failure- Extubated 08/26 ?COPD Right sided PTX s/p CT placement Discussed with IR . Imaging reviewed and findings discussed with IR. Will have possible removal of chest tube today. Continue with oxygen keep sat >92% Bronchodilators, solumederol taper s/p CT by IR 08/31, CT placed on 08/29 removed by IR CXR small right PTX, CT in place. Patient s/p CT exchange by IR 12Fr. CT placed. CXR post CT placement showed no PTX. Cardiovascular: Atrial fibrillation with rapid ventricular response On Cardizem 60mg Q6, Lopressor 25mg Q12 monitor HR and BP keep MAP>65mmHG Echo showed EF 50-55% Renal: Acute kidney injury-improving Acute rhabdomyolysis -Monitor renal function, I/O's, electrolytes replacement per protocol. -s/p Emergent dialysis 2/3 d/c IVF . FEN/GI: GI bleed Anemia 2nd acute blood loss Severe acute protein calorie malnutrition --s/p EGD 08/28: Two ulcers in antrum /pyloric channel-clean base-biopsy gastritis antrum-biopsy duodenitis duodenal bulb-biopsy ,stricture distal esophagus-biopsys/p dilatation, esophagitis - GI is following Dr. Villalobos, on Protonix drip -s/p Transfusion 2units PRBC on 08/27. US abdomen: Gallbladder wall thickening without stones On full liquid diet Heme Monitor CBC, coags-s/p transfusion 2u PRBC 08/27 ID Continue Rocephin. Monitor for signs of infections ( Fever, WBC) Endocrine: hyperglycemia of critical illness SSI q6h med scale Prophylaxis: GI Prophylaxis Pepcid DVT Prophylaxis -- SCDs history of chronic subdurals, not on AC prophylaxis given GI bleed and anemia requiring blood transfusion . Lines: 2/3: right SC TLC d/c central line 2/3: chery. Discussed with the patient, ICU nurse, IR. Palliative care is following. Tentative plan for hospice, will await disposition Kanwal Lynne MD Sep 05, 2017 08:43
[2017-09-06] VITALS (14 sets, daily range): BP systolic 113–132; BP diastolic 56–76; PULSE 76–85; RESP 8–14; TEMP 97.9–98.4; O2SAT 92–98
[2017-09-06] MEDS: MORPHINE SULFATE 4 MG/ML INJ IV PUSH PRN ×5 (00:07→20:06)
[2017-09-06] MEDS: methylPREDNISolone SOD SUCC 40 MG/1 ML VIAL IV PUSH SCH ×3 (02:12→18:33)
[2017-09-06] MEDS: DILTIAZEM HCL 60 MG TAB PO SCH ×3 (05:18→18:35)
[2017-09-06] MEDS: INSULIN NovoLIN REGULAR SUPPLEMENTAL SCALE SQ SCH ×4 (05:18→18:34)
[2017-09-06] MEDS: QUEtiapine FUMARATE 25 MG TAB PO SCH ×2 (08:11→13:20)
[2017-09-06] MEDS: SODIUM CHLORIDE 0.9% FLUSH 10 ML FLUSH IV FLUSH SCH ×2 (08:11→20:07)
[2017-09-06] MEDS: METOPROLOL TARTRATE 25 MG TAB PO SCH ×2 (08:11→20:06)
[2017-09-06] MEDS: cefTRIAXone INJ 1,000 MG in SODIUM CHLORIDE 0.9% INJ 100 ML IV SCH (08:11)
[2017-09-06] MEDS: PANTOPRAZOLE SODIUM 40 MG VIAL IV PUSH SCH ×2 (08:12→20:07)
[2017-09-06] MEDS: CHLORHEXIDINE 0.12% (ORAL KIT) 15 ML CUP MT SCH ×2 (08:12→20:08)
--- NOTE | 2017-09-06 08:40 | HHI.PR ---
Subjective Remarks Patient in bed, appears in nad. Some pain atthe prior CT. CT was removed he is breathing better. No n/v/d/c. Feels very weak, says he can't feed himself. Objective Vitals Vital Signs Date Time Temp Pulse Resp B/P (MAP) Pulse Ox O2 Delivery O2 Flow Rate FiO2 09/06/17 07:46 98 21 09/06/17 06:00 79 09/06/17 05:18 18 09/06/17 04:00 78 09/06/17 04:00 97.9 78 8 115/58 (77) 97 09/06/17 02:00 79 09/06/17 00:00 98.3 85 12 117/59 (78) 95 09/06/17 00:00 85 09/05/17 22:00 84 09/05/17 21:45 98 Nasal Cannula 2.00 09/05/17 20:00 78 09/05/17 20:00 96 Nasal Cannula 3.00 09/05/17 20:00 97.9 78 11 112/62 (79) 96 09/05/17 18:00 85 09/05/17 16:00 85 09/05/17 16:00 97.8 85 8 118/56 (76) 99 09/05/17 14:00 85 09/05/17 12:00 98.0 79 11 116/60 (78) 09/05/17 12:00 79 09/05/17 10:00 78 I/O 09/05/17 09/05/17 09/05/17 09/06/17 09/06/17 09/06/17 07:00 15:00 23:00 07:00 15:00 23:00 Intake Total 500 ml 625 ml 450 ml Output Total 850 ml 1025 ml 625 ml Balance -350 ml -400 ml -175 ml Intake Oral 500 ml 525 ml 450 ml IV Total 100 ml Output Urine Total 850 ml 1025 ml 625 ml Stool Total 0 ml # Bowel Movements 0 0 Result Diagram: 09/05/17 0535 09/05/17 0535 Imaging Last Impressions Chest X-Ray 09/04/17 8615 Signed Impressions: Service Date/Time: Monday, September 04, 2017 17:06 - CONCLUSION: 1. Chest tube has been removed. No pneumothorax. 2. Stable bibasilar airspace disease/effusions. Stable deep tissue emphysematous changes about both hemithoraces. Mega Whitfield MD Tunnelled Chest Tube Removal 09/04/17 0000 Signed Impressions: Service Date/Time: Monday, September 04, 2017 00:00 - CONCLUSION: Uncomplicated chest tube removal. Mega Whitfield MD Chest Tube Change 08/31/17 1035 Signed Impressions: Service Date/Time: Thursday, August 31, 2017 13:03 - CONCLUSION: Uncomplicated chest tube exchange as above. Tube was upsized to 12 [place]. Mega Whitfield MD Chest Tube Insertion 08/30/17 0000 Signed Impressions: Service Date/Time: August 11:20 - CONCLUSION: Uncomplicated chest tube placement as above. Mega Whitfield MD Abdomen Ultrasound 08/27/17 0000 Signed Impressions: Service Date/Time: Sunday, August 27, 2017 09:20 - CONCLUSION: Gallbladder wall thickening without stones. Cholecystitis is not excluded. Radionuclide imaging is recommended for further evaluation if clinically indicated. Marco Lloyd MD Head CT 08/24/17 2349 Signed Impressions: Service Date/Time: Friday, August 25, 2017 00:02 - CONCLUSION: There is a hypodense subdural collection with slight left to right shift identified. The appearance suggests a chronic subdural hematoma. Duncan Odom MD Objective Remarks GENERAL: Elderly frail cachectic male, lying in bed, appears in NAD HEENT: Normocephalic. Atraumatic. Pupils equal, round, reactive, conjugate. Mucous membranes are still dry. NECK: Trachea is midline. There is no JVD. CHEST: Clear bilaterally. No wheezing. CARDIOVASCULAR: Tachycardic rate, irregularly irregular rhythm. afib by tele. ABDOMEN: Soft, scaphoid nontender, nondistended. No guarding. MUSCULOSKELETAL: Pulses 2+. No peripheral edema. NEUROLOGICAL: GCS 14 .Awake. . Periods of confusion A/P Assessment and Plan Neurologic: Psychosis Toxic encephalopathy- resolved - salicylate subtherapeutic now. -s/p emergent dialysis 2/3 - neuro checks -Psych is following Respiratory: Acute hypoxic and hypercarbic respiratory failure- Extubated 08/26 ?COPD Right sided PTX s/p CT placement Discussed with IR . Imaging reviewed and findings discussed with IR. Will have possible removal of chest tube today. Continue with oxygen keep sat >92% Bronchodilators, solumederol taper s/p CT by IR 08/31, CT placed on 08/29 removed by IR CXR small right PTX, CT in place. Patient s/p CT exchange by IR 12Fr. CT placed. CXR post CT placement showed no PTX. Cardiovascular: Atrial fibrillation with rapid ventricular response On Cardizem 60mg Q6, Lopressor 25mg Q12 monitor HR and BP keep MAP>65mmHG Echo showed EF 50-55% Renal: Acute kidney injury-improving Acute rhabdomyolysis -Monitor renal function, I/O's, electrolytes replacement per protocol. -s/p Emergent dialysis /3 d/c IVF . FEN/GI: GI bleed Anemia 2nd acute blood loss Severe acute protein calorie malnutrition --s/p EGD 08/28: Two ulcers in antrum /pyloric channel-clean base-biopsy gastritis antrum-biopsy duodenitis duodenal bulb-biopsy ,stricture distal esophagus-biopsys/p dilatation, esophagitis - GI is following Dr. Villalobos, on Protonix drip -s/p Transfusion 2units PRBC on 08/27. US abdomen: Gallbladder wall thickening without stones On full liquid diet Heme Monitor CBC, coags-s/p transfusion 2u PRBC 08/27 ID Continue Rocephin. Monitor for signs of infections ( Fever, WBC) Endocrine: hyperglycemia of critical illness SSI q6h med scale Prophylaxis: GI Prophylaxis Pepcid DVT Prophylaxis -- SCDs history of chronic subdurals, not on AC prophylaxis given GI bleed and anemia requiring blood transfusion . Lines: 2/3: right SC TLC d/c central line 2/3: chery. Discussed with the patient, ICU nurse, IR. Palliative care is following. Tentative plan for hospice, will await disposition. Transfer to med/surg floor Kanwal Lynne MD Sep 06, 2017 08:40
[2017-09-07] VITALS (9 sets, daily range): BP systolic 106–119; BP diastolic 56–66; PULSE 67–85; RESP 15–19; TEMP 96–98.1; O2SAT 91–97
[2017-09-07] MEDS: SODIUM CHLORIDE 0.9% FLUSH 10 ML FLUSH IV FLUSH PRN ×3 (00:20→20:55)
[2017-09-07] MEDS: INSULIN NovoLIN REGULAR SUPPLEMENTAL SCALE SQ SCH ×4 (00:21→17:57)
[2017-09-07] MEDS: DILTIAZEM HCL 60 MG TAB PO SCH ×4 (00:21→18:05)
[2017-09-07] MEDS: MORPHINE SULFATE 4 MG/ML INJ IV PUSH PRN ×3 (00:22→11:19)
[2017-09-07] MEDS: methylPREDNISolone SOD SUCC 40 MG/1 ML VIAL IV PUSH SCH ×2 (02:41→11:18)
[2017-09-07] MEDS: diphenhydrAMINE HCL 25 MG CAP PO PRN (02:43)
[2017-09-07] MEDS: CHLORHEXIDINE 0.12% (ORAL KIT) 15 ML CUP MT SCH ×2 (08:00→20:00)
[2017-09-07] MEDS: MAGNESIUM HYDROXIDE SUSP 30 ML CUP PO PRN (08:15)
[2017-09-07] MEDS: PANTOPRAZOLE SODIUM 40 MG VIAL IV PUSH SCH ×2 (08:15→20:55)
[2017-09-07] MEDS: SENNOSIDES 8.6 MG TAB PO PRN (08:16)
[2017-09-07] MEDS: QUEtiapine FUMARATE 25 MG TAB PO SCH ×2 (08:16→11:18)
[2017-09-07] MEDS: METOPROLOL TARTRATE 25 MG TAB PO SCH ×2 (08:18→20:59)
[2017-09-07] MEDS: SODIUM CHLORIDE 0.9% FLUSH 10 ML FLUSH IV FLUSH SCH ×2 (09:00→20:55)
[2017-09-07] MEDS: cefTRIAXone INJ 1,000 MG in SODIUM CHLORIDE 0.9% INJ 100 ML IV SCH (09:42)
[2017-09-07] MEDS ORDERED: HYDR-3288 PO (13:06)
[2017-09-07] MEDS ORDERED: SERO25TA PO (13:06)
[2017-09-07] MEDS ORDERED: DILT60TA33 PO (13:06)
[2017-09-07] MEDS ORDERED: METO25TA3 PO (13:06)
[2017-09-07] MEDS ORDERED: NITR0.4S SL (13:06)
--- NOTE | 2017-09-07 13:07 | HHI.DS ---
Discharge Summary Admission Date Aug 25, 2017 at 05:37 Discharge Date: Sep 07, 2017 Admitting Diagnosis dehydration rhabdo , chronic subdural (1) Respiratory failure ICD Code: J96.90 - Respiratory failure, unspecified, unspecified whether with hypoxia or hypercapnia (2) Rhabdomyolysis ICD Code: M62.82 - Rhabdomyolysis (3) Subdural hematoma, chronic ICD Code: I62.03 - Nontraumatic chronic subdural hemorrhage (4) BPH (5) Chronic GERD ICD Code: K21.9 - Chronic GERD (6) History of coronary artery disease ICD Code: Z86.79 - History of coronary artery disease (7) Pneumothorax on right ICD Code: J93.9 - Pneumothorax, unspecified Status: Acute (8) severe ulcerative esophagitis, confirmed by biopsy August 2016 Procedures right chest tube placement and removal by IR Brief History - From Admission 82-year-old male with a past medical history significant for hypertension, hyperlipidemia and BPH was brought to the emergency department for further evaluation of altered mental status. Per discussion with ER physician, the patient lives in a home with several roommates who first noticed a decline in the patient's condition approximately 2-3 days ago. They state that they were trying to get the patient to drink milk to see if that would help with his confusion however when he did not improve he was brought to the emergency department for further evaluation. At the time of my examination, the patient is sleeping. On awaking he is violent and confused. He is unable to tell me his name. His speech is garbled although he is speaking in sentences and stating that he "has to pee." He has no lateralizing signs/symptoms. Moves all 4 extremities spontaneously. CBC/BMP: 09/05/17 0535 09/05/17 0535 Significant Findings Laboratory Tests Test 09/05/17 05:35 White Blood Count 15.0 TH/MM3 (4.0-11.0) Red Blood Count 2.76 MIL/MM3 (4.50-5.90) Hemoglobin 8.6 GM/DL (13.0-17.0) Hematocrit 25.6 % (39.0-51.0) Neutrophils (%) (Auto) 94.7 % (16.0-70.0) Lymphocytes (%) (Auto) 2.1 % (9.0-44.0) Neutrophils # (Auto) 14.2 TH/MM3 (1.8-7.7) Lymphocytes # (Auto) 0.3 TH/MM3 (1.0-4.8) Neutrophils % (Manual) 95 % (16-70) Lymphocytes % 1 % (9-44) Neutrophils # (Manual) 14.6 TH/MM3 (1.8-7.7) Myelocytes 1 % (0-0) Nucleated Red Blood Cells 1 /100 WBC (0-0) Blood Urea Nitrogen 30 MG/DL (7-18) Random Glucose 152 MG/DL (74-106) Calcium Level 7.9 MG/DL (8.5-10.1) Carbon Dioxide Level 32.8 MEQ/L (21.0-32.0) Anion Gap 3 MEQ/L (5-15) PE at Discharge GENERAL: Elderly frail cachectic male, lying in bed, appears in NAD HEENT: Normocephalic. Atraumatic. Pupils equal, round, reactive, conjugate. Mucous membranes are still dry. NECK: Trachea is midline. There is no JVD. CHEST: Clear bilaterally. No wheezing. CARDIOVASCULAR: Tachycardic rate, irregularly irregular rhythm. afib by tele. ABDOMEN: Soft, scaphoid nontender, nondistended. No guarding. MUSCULOSKELETAL: Pulses 2+. No peripheral edema. NEUROLOGICAL: GCS 14 .Awake. . Periods of confusion Pt update on day of discharge No events overnight. Had 2 BM VSS Hospital Course Neurologic: Psychosis Toxic encephalopathy- resolved - salicylate subtherapeutic now. - s/p emergent dialysis 2/ - neuro checks - Psych is following Respiratory: Acute hypoxic and hypercarbic respiratory failure- Extubated 08/26 ?COPD Right sided PTX s/p CT placement Discussed with IR . Imaging reviewed and findings discussed with IR. Will have possible removal of chest tube today. Continue with oxygen keep sat >92% Bronchodilators, solumederol taper s/p CT by IR 08/31, CT placed on 08/29 removed by IR CXR small right PTX, CT in place. Patient s/p CT exchange by IR 12Fr. CT placed. CXR post CT placement showed no PTX. Chest tube was removed and patient is doing well. DC Solu-Medrol, give prednisone x 2 more days. Sattign well on room air. Pain is controlled with meds Cardiovascular: Atrial fibrillation with rapid ventricular response On Cardizem 60mg Q6, Lopressor 25mg Q12 monitor HR and BP keep MAP>65mmHG Echo showed EF 50-55% Renal: Acute kidney injury-improving Acute rhabdomyolysis -Monitor renal function, I/O's, electrolytes replacement per protocol. -s/p Emergent dialysis 2/3 d/c IVF . FEN/GI: GI bleed Anemia 2nd acute blood loss Severe acute protein calorie malnutrition --s/p EGD 08/28: Two ulcers in antrum /pyloric channel-clean base-biopsy gastritis antrum-biopsy duodenitis duodenal bulb-biopsy ,stricture distal esophagus-biopsys/p dilatation, esophagitis - GI is following Dr. Villalobos, on Protonix drip - s/p Transfusion 2units PRBC on 08/27. US abdomen: Gallbladder wall thickening without stones On full liquid diet Heme Monitor CBC, coags-s/p transfusion 2u PRBC / ID DC Rocephin. Monitor for signs of infections ( Fever, WBC). No signs of infection Endocrine: hyperglycemia of critical illness SSI q6h med scale Prophylaxis: GI Prophylaxis Pepcid DVT Prophylaxis -- SCDs history of chronic subdurals, not on AC prophylaxis given GI bleed and anemia requiring blood transfusion . Lines: 2/3: right SC TLC d/c central line. DC central line 2/3: chery. Discussed with the patient, ICU nurse, IR. Palliative care is following. Tentative plan for hospice, will await disposition. Patient is improving. PT recommends SNF. DC to SNF when arrangements done. Discussed with the patient, nurse, CM Pt Condition on Discharge: Stable Discharge Disposition: Discharge to SNF Discharge Time: > 30 minutes Discharge Instructions DIET: Follow Instructions for: As Tolerated, No Restrictions Speech Therapy-Diet Recommends: [place] Thickened Liquids Activities you can perform: Regular-No Restrictions Follow up Referrals: PCP Follow-up - 2-3 Days Pulmonology - 2 Weeks New Medications: Hydrocodone-Acetaminophen ([place]) 7.5-325 mg Tab 1 TAB PO Q6H PRN for PAIN, #30 TAB 0 Refills Pantoprazole (Pantoprazole) 40 Mg Tab 40 MG PO DAILY for Reflux, #30 TAB 0 Refills Diltiazem (Cardizem) 60 Mg Tab 60 MG PO Q6HR for Blood Pressure Management, #60 TAB Metoprolol Tartrate (Metoprolol Tartrate) 25 Mg Tab 25 MG PO Q12HR for Blood Pressure Management, #60 TAB Nitroglycerin SL (Nitrostat SL) 0.4 Mg Subl 0.4 MG SL UNSCH PRN for WITH DIALYSIS, #30 TAB Quetiapine (Seroquel) 25 Mg Tab 50 MG PO BID@09,12 for psychosis , #60 TAB Continued Medications: Amlodipine (Norvasc) 5 Mg Tab 5 MG PO DAILY for Blood Pressure Management for 30 Days, TAB Dicyclomine (Bentyl) 10 Mg Cap 10 MG PO TID PRN for Bowel Management, #15 CAP 0 Refills Doxazosin (Doxazosin) 4 Mg Tab 4 MG PO DAILY, #30 TAB 0 Refills Lovastatin (Lovastatin) 20 Mg Tab 20 MG PO DAILY for Cholesterol Management, #30 TAB 0 Refills Omeprazole (Omeprazole) 20 Mg Tab 20 MG PO DAILY, #30 TAB 0 Refills Sucralfate Liq (Sucralfate Liq) 1 Gm/10 Ml Krystle 1 GM PO ACHS for gastritis for 30 Days, BOTTLE Tamsulosin (Tamsulosin) 0.4 Mg Cap 0.4 MG PO HS for Manage Prostate Problems, #30 CAP 0 Refills Trazodone (Trazodone) 50 Mg Tab 50 MG PO TID for Control Depression, #90 TAB 0 Refills Kanwal Lynne MD Sep 07, 2017 13:07
[2017-09-07] MEDS ORDERED: PANT40TA3 PO (13:12)
[2017-09-07] MEDS ORDERED: NALOXONE HCL 0.4 MG/ML AMP IV PUSH PRN (13:15)
[2017-09-07] MEDS ORDERED: ACETAMINOPHEN/HYDROcodone 325 MG/5 MG TAB PO PRN (13:15)
[2017-09-07] MEDS ORDERED: MORPHINE SULFATE 2 MG/ML INJ IV PUSH PRN (13:15)
[2017-09-07 13:39] LABS: AUTOMATED NEUTROPHIL # 13.2 TH/MM3 (1.8-7.7); BASOPHIL # 0.1 TH/MM3 (0-0.2); BASOPHIL % 0.6 % (0.0-2.0); HEMATOCRIT 28.4 % (39.0-51.0); HEMOGLOBIN 9.4 GM/DL (13.0-17.0); LYMPH % 2.3 % (9.0-44.0); LYMPHOCYTE # 0.3 TH/MM3 (1.0-4.8); MEAN CELL VOLUME 93.6 FL (80.0-100.0); MEAN CORPUSCULAR HEMOGLOBIN 30.9 PG (27.0-34.0); MEAN PLATELET VOLUME 7.7 FL (7.0-11.0); MONO % 2.7 % (0.0-8.0); MONOCYTE # 0.4 TH/MM3 (0-0.9); NEUT % 94.4 % (16.0-70.0); PLATELET COUNT 331 TH/MM3 (150-450); RED BLOOD COUNT 3.03 MIL/MM3 (4.50-5.90); RED CELL DISTRIBUTION WIDTH 15.1 % (11.6-17.2)
[2017-09-07 14:22] LABS: BLOOD UREA NITROGEN 36 MG/DL (7-18); CALCIUM 7.9 MG/DL (8.5-10.1); CHLORIDE 99 MEQ/L (98-107); CREATININE 0.74 MG/DL (0.60-1.30); GLOMERULAR FILTRATION RATE 101 ML/MIN (>89); GLUCOSE,RANDOM 140 MG/DL (74-106); SODIUM (NA) 135 MEQ/L (136-145)
[2017-09-07 14:28] LABS: % SATURATION IRON PROFILE 22.9 % (20-50); FERRITIN 110 NG/ML (26-388); IRON (FE) 68 MCG/DL (65-175); TOTAL IRON BINDING CAPACITY 297 MCG/DL (250-450)
[2017-09-07] MEDS: ACETAMINOPHEN/HYDROcodone 325 MG/10 MG TAB PO PRN ×2 (14:41→20:54)
--- NOTE | 2017-09-07 15:26 | HHI.PR ---
Subjective Remarks In bed he is much better today. Less pain. He is able to eat. He is feeling very tired and is having weakness. PT recommends knee. He is not short of breath at this time he has no chest pain at this time however he is taking pain medications. No fever or chills. No cough. Satting well on room air Objective Vitals Vital Signs Date Time Temp Pulse Resp B/P (MAP) Pulse Ox O2 Delivery O2 Flow Rate FiO2 09/07/17 12:00 96.3 74 15 106/59 (75) 94 09/07/17 10:21 67 09/07/17 10:08 Room Air 09/07/17 08:00 96.6 71 15 106/58 (74) 94 09/07/17 04:00 76 09/07/17 03:58 96.8 85 18 119/63 (81) 97 09/07/17 01:38 98.1 68 18 115/61 (79) 95 09/07/17 00:02 Room Air 09/07/17 00:00 85 09/06/17 23:15 92 09/06/17 22:00 81 09/06/17 20:11 18 09/06/17 20:00 94 Room Air 09/06/17 20:00 80 09/06/17 20:00 98.1 80 14 132/76 (94) 94 09/06/17 18:00 77 09/06/17 16:00 98.0 77 12 121/59 (79) 94 09/06/17 16:00 76 I/O 09/06/17 09/06/17 09/06/17 09/07/17 09/07/17 09/07/17 07:00 15:00 23:00 07:00 15:00 23:00 Intake Total 450 ml 600 ml 360 ml Output Total 625 ml 1800 ml 600 ml Balance -175 ml -1200 ml -240 ml Intake Oral 450 ml 600 ml 360 ml Output Urine Total 625 ml 1800 ml 600 ml # Bowel Movements 0 0 0 Result Diagram: 09/07/17 1315 09/07/17 1315 Imaging Last Impressions Chest X-Ray 09/04/17 1645 Signed Impressions: Service Date/Time: Monday, September 04, 2017 17:06 - CONCLUSION: 1. Chest tube has been removed. No pneumothorax. 2. Stable bibasilar airspace disease/effusions. Stable deep tissue emphysematous changes about both hemithoraces. Mega Whitfield MD Tunnelled Chest Tube Removal 09/04/17 0000 Signed Impressions: Service Date/Time: Monday, September 04, 2017 00:00 - CONCLUSION: Uncomplicated chest tube removal. Mega Whitfield MD Chest Tube Change 08/31/17 1035 Signed Impressions: Service Date/Time: Thursday, August 31, 2017 13:03 - CONCLUSION: Uncomplicated chest tube exchange as above. Tube was upsized to 12 [place]ian. Mega Whitfield MD Chest Tube Insertion 08/30/17 0000 Signed Impressions: Service Date/Time: August 11:20 - CONCLUSION: Uncomplicated chest tube placement as above. Mega Whitfield MD Abdomen Ultrasound 08/27/17 0000 Signed Impressions: Service Date/Time: Sunday, August 27, 2017 09:20 - CONCLUSION: Gallbladder wall thickening without stones. Cholecystitis is not excluded. Radionuclide imaging is recommended for further evaluation if clinically indicated. Marco Lloyd MD Head CT 08/24/17 2349 Signed Impressions: Service Date/Time: Friday, August 25, 2017 00:02 - CONCLUSION: There is a hypodense subdural collection with slight left to right shift identified. The appearance suggests a chronic subdural hematoma. Duncan Odom MD Objective Remarks GENERAL: Elderly frail cachectic male, lying in bed, appears in NAD HEENT: Normocephalic. Atraumatic. Pupils equal, round, reactive, conjugate. Mucous membranes are moist. NECK: Trachea is midline. There is no JVD. CHEST: Clear bilaterally. No wheezing. CARDIOVASCULAR: Tachycardic rate, irregularly irregular rhythm. ABDOMEN: Soft, scaphoid nontender, nondistended. No guarding. MUSCULOSKELETAL: Pulses 2+. No peripheral edema. NEUROLOGICAL: Awake and alert , oriented x3. No motor deficit. CN grossly normal. A/P Assessment and Plan Neurologic: Psychosis Toxic encephalopathy- resolved - salicylate subtherapeutic now. - s/p emergent dialysis 2/3 - neuro checks - Psych is following Respiratory: Acute hypoxic and hypercarbic respiratory failure- Extubated 08/26 ?COPD Right sided PTX s/p CT placement Discussed with IR . Imaging reviewed and findings discussed with IR. Will have possible removal of chest tube today. Continue with oxygen keep sat >92% Bronchodilators, solumederol taper s/p CT by IR 08/31, CT placed on 08/29 removed by IR CXR small right PTX, CT in place. Patient s/p CT exchange by IR 12Fr. CT placed. CXR post CT placement showed no PTX. Chest tube was removed and patient is doing well. DC Solu-Medrol, give prednisone x 2 more days. Sattign well on room air. Pain is controlled with meds Cardiovascular: Atrial fibrillation with rapid ventricular response On Cardizem 60mg Q6, Lopressor 25mg Q12 monitor HR and BP keep MAP>65mmHG Echo showed EF 50-55% Renal: Acute kidney injury-improving Acute rhabdomyolysis -Monitor renal function, I/O's, electrolytes replacement per protocol. -s/p Emergent dialysis 2/3 d/c IVF . FEN/GI: GI bleed Anemia 2nd acute blood loss Severe acute protein calorie malnutrition --s/p EGD 08/28: Two ulcers in antrum /pyloric channel-clean base-biopsy gastritis antrum-biopsy duodenitis duodenal bulb-biopsy ,stricture distal esophagus-biopsys/p dilatation, esophagitis - GI is following Dr. Villalobos, on Protonix drip - s/p Transfusion 2units PRBC on 08/27. US abdomen: Gallbladder wall thickening without stones On full liquid diet Heme Monitor CBC, coags-s/p transfusion 2u PRBC /5 ID DC Rocephin. Monitor for signs of infections ( Fever, WBC). No signs of infection Endocrine: hyperglycemia of critical illness SSI q6h med scale Prophylaxis: GI Prophylaxis Pepcid DVT Prophylaxis -- SCDs history of chronic subdurals, not on AC prophylaxis given GI bleed and anemia requiring blood transfusion . Lines: 2/3: right SC TLC d/c central line. DC central line 2/3: chery. Discussed with the patient, ICU nurse, IR. Palliative care is following. Tentative plan for hospice, will await disposition. Patient is improving. PT recommends SNF. DC to SNF when arrangements done. Discussed with the patient, nurse, CM Kanwal Lynne MD Sep 07, 2017 15:26
[2017-09-07] MEDS: predniSONE 20 MG TAB PO SCH (20:56)
[2017-09-08] VITALS (9 sets, daily range): BP systolic 106–136; BP diastolic 59–68; PULSE 75–87; RESP 17–19; TEMP 96.4–98; O2SAT 93–97
[2017-09-08] MEDS: diphenhydrAMINE HCL 25 MG CAP PO PRN ×2 (00:26→12:56)
[2017-09-08] MEDS: DILTIAZEM HCL 60 MG TAB PO SCH ×4 (00:26→16:38)
[2017-09-08] MEDS: INSULIN NovoLIN REGULAR SUPPLEMENTAL SCALE SQ SCH ×4 (00:31→16:38)
[2017-09-08] MEDS: MAGNESIUM HYDROXIDE SUSP 30 ML CUP PO PRN ×2 (05:06→21:49)
[2017-09-08] MEDS: SENNOSIDES 8.6 MG TAB PO PRN (05:06)
[2017-09-08] MEDS: LACTULOSE SYRUP 20 GM/30 ML CUP PO PRN (05:06)
[2017-09-08] MEDS: ACETAMINOPHEN/HYDROcodone 325 MG/10 MG TAB PO PRN ×5 (05:07→21:40)
[2017-09-08 06:15] LABS: AUTOMATED NEUTROPHIL # 13.6 TH/MM3 (1.8-7.7); BASOPHIL % 0.1 % (0.0-2.0); HEMATOCRIT 28.9 % (39.0-51.0); HEMOGLOBIN 9.7 GM/DL (13.0-17.0); LYMPHOCYTE # 0.4 TH/MM3 (1.0-4.8); MEAN CELL VOLUME 92.3 FL (80.0-100.0); MEAN CORPUSCULAR HEMOGLOBIN 31.1 PG (27.0-34.0); MEAN CORPUSCULAR HGB CONC 33.7 % (32.0-36.0); MEAN PLATELET VOLUME 7.9 FL (7.0-11.0); MONOCYTE # 0.6 TH/MM3 (0-0.9); NEUT % 92.9 % (16.0-70.0); PLATELET COUNT 361 TH/MM3 (150-450); RED BLOOD COUNT 3.13 MIL/MM3 (4.50-5.90); WHITE BLOOD COUNT 14.6 TH/MM3 (4.0-11.0)
[2017-09-08 06:34] LABS: BICARBONATE 31.3 MEQ/L (21.0-32.0); CALCIUM 7.9 MG/DL (8.5-10.1); CREATININE 0.64 MG/DL (0.60-1.30)
[2017-09-08] MEDS: CHLORHEXIDINE 0.12% (ORAL KIT) 15 ML CUP MT SCH ×2 (08:00→20:00)
[2017-09-08] MEDS: PANTOPRAZOLE SODIUM 40 MG VIAL IV PUSH SCH ×2 (08:13→21:39)
[2017-09-08] MEDS: QUEtiapine FUMARATE 25 MG TAB PO SCH ×2 (08:14→12:00)
[2017-09-08] MEDS: predniSONE 20 MG TAB PO SCH ×2 (08:14→21:40)
[2017-09-08] MEDS: METOPROLOL TARTRATE 25 MG TAB PO SCH ×2 (08:14→21:40)
[2017-09-08] MEDS: SODIUM CHLORIDE 0.9% FLUSH 10 ML FLUSH IV FLUSH SCH ×2 (09:00→21:41)
--- NOTE | 2017-09-08 10:22 | HHI.PR ---
Subjective Remarks Sattign well on room air. No fever ro chills. Not much cough. Daughter at bedside. Patient says she is feeling better today except he is very weak. Had a BM No diarrhea. Objective Vitals Vital Signs Date Time Temp Pulse Resp B/P (MAP) Pulse Ox O2 Delivery O2 Flow Rate FiO2 09/08/17 08:54 94 09/08/17 08:00 96.4 79 18 115/59 (77) 93 09/08/17 04:00 97.5 80 19 121/62 (81) 94 09/08/17 00:03 83 09/08/17 00:00 97.8 75 19 136/65 (88) 95 09/07/17 20:54 Room Air 09/07/17 20:00 97.6 84 19 113/56 (75) 92 09/07/17 20:00 75 09/07/17 16:00 96.0 85 16 116/66 (83) 91 09/07/17 12:00 96.3 74 15 106/59 (75) 94 I/O 09/07/17 09/07/17 09/07/17 09/08/17 09/08/17 09/08/17 07:00 15:00 23:00 07:00 15:00 23:00 Intake Total 360 ml 780 ml 240 ml Output Total 600 ml 1550 ml 800 ml Balance -240 ml -770 ml -560 ml Intake Oral 360 ml 680 ml 240 ml IV Total 100 ml Output Urine Total 600 ml 1550 ml 800 ml # Bowel Movements 0 0 Result Diagram: 09/08/17 0446 09/08/17 0446 Imaging Last Impressions Chest X-Ray 09/04/17 1645 Signed Impressions: Service Date/Time: Monday, September 04, 2017 17:06 - CONCLUSION: 1. Chest tube has been removed. No pneumothorax. 2. Stable bibasilar airspace disease/effusions. Stable deep tissue emphysematous changes about both hemithoraces. Mega Whitfield MD Tunnelled Chest Tube Removal 09/04/17 0000 Signed Impressions: Service Date/Time: Monday, September 04, 2017 00:00 - CONCLUSION: Uncomplicated chest tube removal. Mega Whitfield MD Chest Tube Change 08/31/17 1035 Signed Impressions: Service Date/Time: Thursday, August 31, 2017 13:03 - CONCLUSION: Uncomplicated chest tube exchange as above. Tube was upsized to 12 [place]. Mega Whitfield MD Chest Tube Insertion 08/30/17 0000 Signed Impressions: Service Date/Time: August 11:20 - CONCLUSION: Uncomplicated chest tube placement as above. Mega Whitfield MD Abdomen Ultrasound 08/27/17 0000 Signed Impressions: Service Date/Time: Sunday, August 27, 2017 09:20 - CONCLUSION: Gallbladder wall thickening without stones. Cholecystitis is not excluded. Radionuclide imaging is recommended for further evaluation if clinically indicated. Marco Lloyd MD Head CT 08/24/17 2349 Signed Impressions: Service Date/Time: Friday, August 25, 2017 00:02 - CONCLUSION: There is a hypodense subdural collection with slight left to right shift identified. The appearance suggests a chronic subdural hematoma. Duncan Odom MD Objective Remarks GENERAL: Elderly frail cachectic male, lying in bed, appears in NAD HEENT: Normocephalic. Atraumatic. Pupils equal, round, reactive, conjugate. Mucous membranes are moist. NECK: Trachea is midline. There is no JVD. CHEST: Clear bilaterally. No wheezing. CARDIOVASCULAR: Tachycardic rate, irregularly irregular rhythm. ABDOMEN: Soft, scaphoid nontender, nondistended. No guarding. MUSCULOSKELETAL: Pulses 2+. No peripheral edema. NEUROLOGICAL: Awake and alert , oriented x3. No motor deficit. CN grossly normal. A/P Assessment and Plan Neurologic: Psychosis Toxic encephalopathy- resolved - salicylate subtherapeutic now. - s/p emergent dialysis 2/ - neuro checks - Psych is following Respiratory: Acute hypoxic and hypercarbic respiratory failure- Extubated 08/26 ?COPD Right sided PTX s/p CT placement and was removed successfully s/p CT by IR 08/31, CT placed on 08/29, removed by IR CXR small right PTX, CT in place. Patient s/p CT exchange by IR 12Fr. CT placed. CXR post CT placement showed no PTX. Chest tube was removed and patient is doing well. Discussed with IR 09/04/17. Imaging reviewed and findings discussed with IR. Chest tube removed successfully by IR Continue with oxygen keep sat >92%. He is satting well on room air DC Solu-Medrol, give prednisone DCd Sattign well on room air. Pain is controlled with meds Cardiovascular: Atrial fibrillation with rapid ventricular response On Cardizem 60mg Q6, Lopressor 25mg Q12 monitor HR and BP keep MAP>65mmHG Echo showed EF 50-55% Renal: Acute kidney injury-improving Acute rhabdomyolysis -Monitor renal function, I/O's, electrolytes replacement per protocol. -s/p Emergent dialysis 2/3 d/c IVF . FEN/GI: GI bleed Anemia 2nd acute blood loss Severe acute protein calorie malnutrition --s/p EGD 08/28: Two ulcers in antrum /pyloric channel-clean base-biopsy gastritis antrum-biopsy duodenitis duodenal bulb-biopsy ,stricture distal esophagus-biopsys/p dilatation, esophagitis - GI is following Dr. Villalobos, on Protonix drip, change to PO - s/p Transfusion 2units PRBC on 08/27. US abdomen: Gallbladder wall thickening without stones On full liquid diet Heme Monitor CBC, coags-s/p transfusion 2u PRBC 08/27. H/H stable ID Received Rocephin, now DCd. Monitor for signs of infections ( Fever, WBC). No signs of infection Endocrine: hyperglycemia of critical illness SSI q6h med scale Prophylaxis: GI Prophylaxis Pepcid DVT Prophylaxis -- SCDs history of chronic subdurals, not on AC prophylaxis given GI bleed and anemia requiring blood transfusion . Lines: 2/3: right SC TLC d/c central line. DC central line 2/3: chery.Monitor UOP Palliative care is following. Tentative plan for hospice, await disposition, patient meanwhile can be DC to SNF . Patient is improving. PT recommends SNF. DC to SNF when arrangements done. Discussed with the patient, nurse, CM Discussed with the patient, nurse, daughter at bedside Kanwal Lynne MD Sep 08, 2017 10:22
[2017-09-08] MEDS ORDERED: BISACODYL 10 MG SUPP RECTAL ONE (18:45)
[2017-09-08] MEDS ORDERED: BISACODYL 10 MG SUPP RECTAL PRN (18:45)
[2017-09-09] VITALS (7 sets, daily range): BP systolic 99–136; BP diastolic 57–65; PULSE 68–78; RESP 16–18; TEMP 96.6–97.8; O2SAT 91–97
[2017-09-09] MEDS: DILTIAZEM HCL 60 MG TAB PO SCH ×4 (00:31→18:00)
[2017-09-09] MEDS: INSULIN NovoLIN REGULAR SUPPLEMENTAL SCALE SQ SCH ×4 (06:00→18:00)
[2017-09-09] MEDS: ACETAMINOPHEN/HYDROcodone 325 MG/10 MG TAB PO PRN ×4 (06:04→20:43)
[2017-09-09] MEDS: LACTULOSE SYRUP 20 GM/30 ML CUP PO PRN (06:07)
[2017-09-09 06:38] LABS: BASOPHIL % 0.1 % (0.0-2.0); HEMATOCRIT 27.8 % (39.0-51.0); HEMOGLOBIN 9.3 GM/DL (13.0-17.0); LYMPH % 3.4 % (9.0-44.0); LYMPHOCYTE # 0.5 TH/MM3 (1.0-4.8); MEAN CELL VOLUME 92.7 FL (80.0-100.0); MEAN CORPUSCULAR HEMOGLOBIN 30.9 PG (27.0-34.0); MEAN CORPUSCULAR HGB CONC 33.3 % (32.0-36.0); MEAN PLATELET VOLUME 7.3 FL (7.0-11.0); MONO % 3.1 % (0.0-8.0); MONOCYTE # 0.4 TH/MM3 (0-0.9); NEUT % 93.4 % (16.0-70.0); PLATELET COUNT 349 TH/MM3 (150-450); RED CELL DISTRIBUTION WIDTH 15.2 % (11.6-17.2)
[2017-09-09 07:00] LABS: BICARBONATE 32.4 MEQ/L (21.0-32.0); CALCIUM 7.6 MG/DL (8.5-10.1); CREATININE 0.58 MG/DL (0.60-1.30)
[2017-09-09] MEDS: CHLORHEXIDINE 0.12% (ORAL KIT) 15 ML CUP MT SCH ×2 (08:00→20:00)
[2017-09-09] MEDS: METOPROLOL TARTRATE 25 MG TAB PO SCH ×2 (08:31→20:42)
[2017-09-09] MEDS: predniSONE 20 MG TAB PO SCH (08:31)
[2017-09-09] MEDS: QUEtiapine FUMARATE 25 MG TAB PO SCH ×2 (08:31→10:45)
[2017-09-09] MEDS: PANTOPRAZOLE SODIUM 40 MG VIAL IV PUSH SCH ×2 (08:32→20:42)
[2017-09-09] MEDS: SODIUM CHLORIDE 0.9% FLUSH 10 ML FLUSH IV FLUSH SCH ×2 (09:00→20:42)
--- NOTE | 2017-09-09 09:27 | HHI.PR ---
Subjective Remarks In bed, not doing much physical therapy. Asking for more pain medications. He said he is not going to hospice. However is not participating physical therapy. He is saturating well on room air. Chest tube was removed. No cough no fever or chills. No nausea or vomiting. Constipation, add suppository . Objective Vitals Vital Signs Date Time Temp Pulse Resp B/P (MAP) Pulse Ox O2 Delivery O2 Flow Rate FiO2 09/09/17 08:00 96.6 74 18 99/64 (76) 95 09/09/17 04:39 97.6 78 18 112/63 (79) 96 09/09/17 00:28 97.8 77 16 112/57 (75) 91 09/08/17 20:22 85 09/08/17 20:21 Nasal Cannula 3.00 09/08/17 19:35 97.4 87 18 124/68 (86) 97 09/08/17 16:00 98.0 79 18 123/68 (86) 95 09/08/17 12:00 96.6 76 17 106/62 (77) 95 I/O 09/08/17 09/08/17 09/08/17 09/09/17 09/09/17 09/09/17 07:00 15:00 23:00 07:00 15:00 23:00 Intake Total 240 ml 550 ml 240 ml 240 ml Output Total 800 ml 550 ml 1450 ml 950 ml Balance -560 ml 0 ml -1210 ml -710 ml Intake Oral 240 ml 550 ml 240 ml 240 ml Output Urine Total 800 ml 550 ml 1450 ml 950 ml # Bowel Movements 0 0 0 Result Diagram: 09/09/17 0515 09/09/17 0515 Imaging Last Impressions Chest X-Ray 09/04/17 1645 Signed Impressions: Service Date/Time: Monday, September 04, 2017 17:06 - CONCLUSION: 1. Chest tube has been removed. No pneumothorax. 2. Stable bibasilar airspace disease/effusions. Stable deep tissue emphysematous changes about both hemithoraces. Mega Whitfield MD Tunnelled Chest Tube Removal 09/04/17 0000 Signed Impressions: Service Date/Time: Monday, September 04, 2017 00:00 - CONCLUSION: Uncomplicated chest tube removal. Mega Whitfield MD Chest Tube Change 08/31/17 1035 Signed Impressions: Service Date/Time: Thursday, August 31, 2017 13:03 - CONCLUSION: Uncomplicated chest tube exchange as above. Tube was upsized to 12 [place]. Mega Whitfield MD Chest Tube Insertion 08/30/17 0000 Signed Impressions: Service Date/Time: August 11:20 - CONCLUSION: Uncomplicated chest tube placement as above. Mega Whitfield MD Abdomen Ultrasound 08/27/17 0000 Signed Impressions: Service Date/Time: Sunday, August 27, 2017 09:20 - CONCLUSION: Gallbladder wall thickening without stones. Cholecystitis is not excluded. Radionuclide imaging is recommended for further evaluation if clinically indicated. Marco Lloyd MD Head CT 08/24/17 2349 Signed Impressions: Service Date/Time: Friday, August 25, 2017 00:02 - CONCLUSION: There is a hypodense subdural collection with slight left to right shift identified. The appearance suggests a chronic subdural hematoma. Duncan Odom MD Objective Remarks GENERAL: Elderly frail cachectic male, lying in bed, appears in NAD HEENT: Normocephalic. Atraumatic. Pupils equal, round, reactive, conjugate. Mucous membranes are moist. NECK: Trachea is midline. There is no JVD. CHEST: Clear bilaterally. No wheezing. CARDIOVASCULAR: Tachycardic rate, irregularly irregular rhythm. ABDOMEN: Soft, scaphoid nontender, nondistended. No guarding. MUSCULOSKELETAL: Pulses 2+. No peripheral edema. NEUROLOGICAL: Awake and alert , oriented x3. No motor deficit. CN grossly normal. A/P Assessment and Plan Neurologic: Psychosis Toxic encephalopathy- resolved - salicylate subtherapeutic now. - s/p emergent dialysis 2/3 - neuro checks - Psych is following Respiratory: Acute hypoxic and hypercarbic respiratory failure- Extubated 08/26 ?COPD Right sided PTX s/p CT placement and was removed successfully s/p CT by IR 08/31, CT placed on 08/29, removed by IR CXR small right PTX, CT in place. Patient s/p CT exchange by IR 12Fr. CT placed. CXR post CT placement showed no PTX. Chest tube was removed and patient is doing well. Hayder BREWER. Discussed with IR 09/04/17. Imaging reviewed and findings discussed with IR. Chest tube removed successfully by IR Continue with oxygen keep sat >92%. He is satting well on room air DC Solu-Medrol, give prednisone DCd Sattign well on room air. Pain is controlled with meds Cardiovascular: Atrial fibrillation with rapid ventricular response On Cardizem 60mg Q6, Lopressor 25mg Q12 monitor HR and BP keep MAP>65mmHG Echo showed EF 50-55% Renal: Acute kidney injury-improving Acute rhabdomyolysis -Monitor renal function, I/O's, electrolytes replacement per protocol. -s/p Emergent dialysis 2/3 d/c IVF . FEN/GI: GI bleed Anemia 2nd acute blood loss Severe acute protein calorie malnutrition --s/p EGD 08/28: Two ulcers in antrum /pyloric channel-clean base-biopsy gastritis antrum-biopsy duodenitis duodenal bulb-biopsy ,stricture distal esophagus-biopsys/p dilatation, esophagitis - GI is following Dr. Villalobos, on Protonix drip, change to PO - s/p Transfusion 2units PRBC on 08/27. US abdomen: Gallbladder wall thickening without stones On full liquid diet Heme Monitor CBC, coags-s/p transfusion 2u PRBC 08/27. H/H stable ID Received Rocephin, now DCd. Monitor for signs of infections ( Fever, WBC). No signs of infection Endocrine: hyperglycemia of critical illness SSI q6h med scale Prophylaxis: GI Prophylaxis Pepcid DVT Prophylaxis -- SCDs history of chronic subdurals, not on AC prophylaxis given GI bleed and anemia requiring blood transfusion . Lines: 2/3: right SC TLC d/c central line. DC central line 2/3: chery.Monitor UOP Palliative care is following. Tentative plan for hospice, await disposition, patient meanwhile can be DC to SNF . Patient is improving. PT recommends SNF. DC to SNF when arrangements done. Discussed with the patient, nurse, CM Discussed with the patient, nurse. Kanwal Lynne MD Sep 09, 2017 09:27
[2017-09-10 00:17] VITALS: BP 115/68; PULSE 77; RESP 16; TEMP 97; O2SAT 96
[2017-09-10] MEDS: ACETAMINOPHEN/HYDROcodone 325 MG/10 MG TAB PO PRN ×4 (00:20→13:10)
[2017-09-10] MEDS: DILTIAZEM HCL 60 MG TAB PO SCH ×2 (00:20→05:45)
[2017-09-10 04:55] VITALS: BP 115/65; PULSE 76; RESP 17; TEMP 97.3; O2SAT 98
[2017-09-10] MEDS: INSULIN NovoLIN REGULAR SUPPLEMENTAL SCALE SQ SCH ×2 (05:45)
[2017-09-10 08:00] VITALS: BP 110/60; PULSE 76; RESP 15; TEMP 97.3; O2SAT 96
[2017-09-10] MEDS: CHLORHEXIDINE 0.12% (ORAL KIT) 15 ML CUP MT SCH (08:00)
[2017-09-10] MEDS: QUEtiapine FUMARATE 25 MG TAB PO SCH (08:12)
[2017-09-10] MEDS: METOPROLOL TARTRATE 25 MG TAB PO SCH (08:13)
[2017-09-10] MEDS: PANTOPRAZOLE SODIUM 40 MG VIAL IV PUSH SCH (08:13)
[2017-09-10] MEDS: SODIUM CHLORIDE 0.9% FLUSH 10 ML FLUSH IV FLUSH SCH (09:00)
[2017-09-10 12:00] VITALS: BP 108/66; PULSE 67; RESP 16; TEMP 96.4; O2SAT 97
== END 2017-09-10 13:09 | DRG 917 ==
LOC: NEPC 23:27 → NEDA 08-25 03:04 → OBSVTOIN 08-25 05:37 → HIME 08-25 06:35 → N06A 09-06 23:41
PROVIDERS: ADMIT Hospitalist; ATTEND Hospitalist
PROC: 03HY32Z Insertion of Monitoring Device into Upper Artery, Percutaneous Approach (ICD-10-PCS; 2017-08-25)
PROC: 5A1945Z Respiratory Ventilation, 24-96 Consecutive Hours (ICD-10-PCS; 2017-08-25)
PROC: 0BH17EZ Insertion of Endotracheal Airway into Trachea, Via Natural or Artificial Opening (ICD-10-PCS; 2017-08-25)
PROC: 02HV33Z Insertion of Infusion Device into Superior Vena Cava, Percutaneous Approach (ICD-10-PCS; 2017-08-25)
PROC: 05HM33Z Insertion of Infusion Device into Right Internal Jugular Vein, Percutaneous Approach (ICD-10-PCS; 2017-08-25)
PROC: 5A1D70Z Performance of Urinary Filtration, Intermittent, Less than 6 Hours Per Day (ICD-10-PCS; 2017-08-25)
PROC: 30233N1 Transfusion of Nonautologous Red Blood Cells into Peripheral Vein, Percutaneous Approach (ICD-10-PCS; principal; 2017-08-27)
PROC: 0DB98ZX Excision of Duodenum, Via Natural or Artificial Opening Endoscopic, Diagnostic (ICD-10-PCS; 2017-08-28)
PROC: 0DB78ZX Excision of Stomach, Pylorus, Via Natural or Artificial Opening Endoscopic, Diagnostic (ICD-10-PCS; 2017-08-28)
PROC: 0DB38ZX Excision of Lower Esophagus, Via Natural or Artificial Opening Endoscopic, Diagnostic (ICD-10-PCS; 2017-08-28)
PROC: 0D748ZZ Dilation of Esophagogastric Junction, Via Natural or Artificial Opening Endoscopic (ICD-10-PCS; 2017-08-28)
PROC: 0W9930Z Drainage of Right Pleural Cavity with Drainage Device, Percutaneous Approach (ICD-10-PCS; 2017-08-29)
PROC: 0W9930Z Drainage of Right Pleural Cavity with Drainage Device, Percutaneous Approach (ICD-10-PCS; 2017-08-30)
PROC: 0WP9X0Z Removal of Drainage Device from Right Pleural Cavity, External Approach (ICD-10-PCS; 2017-08-30)
PROC: 0B2QX0Z Change Drainage Device in Pleura, External Approach (ICD-10-PCS; 2017-08-31)
DX: T39.091A Poisoning by salicylates, accidental (unintentional), initial encounter (principal); I62.03 Nontraumatic chronic subdural hemorrhage; E43 Unspecified severe protein-calorie malnutrition; G92 Toxic encephalopathy; N17.9 Acute kidney failure, unspecified; J96.02 Acute respiratory failure with hypercapnia; J96.01 Acute respiratory failure with hypoxia; E87.4 Mixed disorder of acid-base balance; K22.10 Ulcer of esophagus without bleeding; I48.2 Chronic atrial fibrillation; K92.2 Gastrointestinal hemorrhage, unspecified; D62 Acute posthemorrhagic anemia; M62.82 Rhabdomyolysis; J93.9 Pneumothorax, unspecified; E86.0 Dehydration; I10 Essential (primary) hypertension; E78.5 Hyperlipidemia, unspecified; N40.0 Benign prostatic hyperplasia without lower urinary tract symptoms; Z96.612 Presence of left artificial shoulder joint; F17.210 Nicotine dependence, cigarettes, uncomplicated; T81.82XA Emphysema (subcutaneous) resulting from a procedure, initial encounter; Y84.8 Other medical procedures as the cause of abnormal reaction of the patient, or of later complication, without mention of misadventure at the time of the procedure; E87.6 Hypokalemia; R00.0 Tachycardia, unspecified; R73.9 Hyperglycemia, unspecified; R40.2430 Glasgow coma scale score 3-8, unspecified time; K44.9 Diaphragmatic hernia without obstruction or gangrene; K25.9 Gastric ulcer, unspecified as acute or chronic, without hemorrhage or perforation; K22.2 Esophageal obstruction; K29.80 Duodenitis without bleeding; K29.70 Gastritis, unspecified, without bleeding; I25.10 Atherosclerotic heart disease of native coronary artery without angina pectoris; K21.9 Gastro-esophageal reflux disease without esophagitis; Z66 Do not resuscitate; J44.9 Chronic obstructive pulmonary disease, unspecified; F29 Unspecified psychosis not due to a substance or known physiological condition; K59.00 Constipation, unspecified; Z85.820 Personal history of malignant melanoma of skin; Z86.010 Personal history of colon polyps
CPT/HCPCS: 31500; 32551; 32557; 36430; 36556; 36600; 70450; 71045; 76700; 76937; 80048; 80053; 80074; 80076; 80307; 81001; 81003; 82550; 82552; 82728; 82805; 82948; 83540; 83550; 83605; 83690; 83735; 84100; 84132; 84155; 84439; 84443; 84484; 85007; 85014; 85018; 85025; 85027; 85610; 85730; 86850; 86900; 86901; 86920; 87086; 88305; 88312; 90935; 93005; 93306; 94002; 94003; 94150; 94640; 94664; 94667; 94668; 96360; 96361; 96374; 96375; 99152; 99153; C1729; C1769; C9113; J0282; J0696; J1200; J1580; J1630; J1644; J1940; J2060; J2250; J2270; J2920; J3010; J3475; J3480; J7030; J7040; J7042; J7050; J7070; J7512; P9016; P9047

== ENCOUNTER 2017-09-25 12:07 | Inpatient (IN) | payer OTHER, MEDICARE ==
[2017-09-25] VITALS (16 sets, daily range): BP systolic 86–158; BP diastolic 51–80; PULSE 75–145; RESP 17–20; TEMP 97.6–98.9; O2SAT 94–99
[~2017-09-25 12:07] MED LIST changes: +DILT60TA33 PO; +HYDR-3288 PO; +METO25TA3 PO; +NITR0.4S SL; +PANT40TA3 PO; +SERO25TA PO
[2017-09-25] MEDS ORDERED: SODIUM CHLOR 0.9% 1000 ML INJ 1,000 ML IV ONE (12:34)
--- NOTE | 2017-09-25 12:40 | PD ---
HPI Chief Complaint: Abdominal Pain Time Seen by Provider: 12:25 Travel History International Travel<30 days: No Contact w/Intl Traveler<30days: No Traveled to known affect area: No History of Present Illness HPI 82-year-old male presents to the emergency department via EMS for nursing facility for evaluation of not eating for 5 days and abdominal pain. Patient was recently discharged on September 07, 2017 for dehydration, rhabdomyolysis, chronic subdural. Patient has past medical history for hypertension, hyperlipidemia, BPH. He recently had a pneumothorax on the right and had a chest tube. Patient is alert and oriented on my exam. He complains of 9/10 upper abdominal pain, sharp and aching without radiation. Also, on even gentle touch anywhere on his body, the patient will yell in pain. His lips appear dry. Patient denies any headache. He denies a chest pain or shortness of breath. He denies any nausea, vomiting, diarrhea. No exacerbating or alleviating factors. Moderate severity. PFSH Past Medical History Atrial Fibrillation: Yes Blood Disorders: No Heart Rhythm Problems: Yes (afib) Cancer: Yes (melanoma) Cardiovascular Problems: Yes High Cholesterol: Yes Diminished Hearing: No Endocrine: No Gastrointestinal Disorders: Yes (Came in with abdominal pain ) Genitourinary: Yes (BPH with some retention) Implanted Vascular Access Dvce: No Insomnia: Yes Musculoskeletal: No Neurologic: No Psychiatric: No ?: Not Past Surgical History Eye Surgery: Yes Other Surgery: Yes (right nare removal, pins to left shoulder ) Social History Alcohol Use: Yes (4-5 beers daily) Tobacco Use: Yes (pack and half a day ) Substance Use: No Allergies-Medications (Allergen,Severity, Reaction): Coded Allergies: No Known Allergies (Verified Allergy, Unknown, 09/25/17) Reported Meds & Prescriptions Reported Meds & Active Scripts Active Pantoprazole (Pantoprazole Sodium) 40 Mg Tab 40 Mg PO DAILY [place] (Hydrocodone-Acetaminophen) 7.5-325 mg Tab 1 Tab PO Q6H PRN Seroquel (Quetiapine Fumarate) 25 Mg Tab 50 Mg PO BID@09,12 Cardizem (Diltiazem HCl) 60 Mg Tab 60 Mg PO Q6HR Metoprolol Tartrate 25 Mg Tab 25 Mg PO Q12HR Nitrostat SL (Nitroglycerin) 0.4 Mg Subl 0.4 Mg SL UNSCH PRN Bentyl (Dicyclomine HCl) 10 Mg Cap 10 Mg PO TID PRN Sucralfate Liq (Sucralfate) 1 Gm/10 Ml Krystle 1 Gm PO ACHS 30 Days Norvasc (Amlodipine Besylate) 5 Mg Tab 5 Mg PO DAILY 30 Days Reported Doxazosin (Doxazosin Mesylate) 4 Mg Tab 4 Mg PO DAILY Trazodone (Trazodone HCl) 50 Mg Tab 50 Mg PO TID Omeprazole 20 Mg Tab 20 Mg PO DAILY Tamsulosin (Tamsulosin HCl) 0.4 Mg Cap 0.4 Mg PO HS Lovastatin 20 Mg Tab 20 Mg PO DAILY Review of Systems Except as stated in HPI: all other systems reviewed are Neg Physical Exam Narrative GENERAL: Well-nourished, well-developed elderly male patient, afebrile. Patient is easily awakened by verbal stimuli. He is oriented to person, place, time. SKIN: Focused skin assessment warm/dry. HEAD: Normocephalic. Atraumatic. Lungs sounds diminished. EYES: No scleral icterus. No injection or drainage. NECK: Supple, trachea midline. No JVD or lymphadenopathy. CARDIOVASCULAR: Regular rate and rhythm without murmurs, gallops, or rubs. RESPIRATORY: Breath sounds equal bilaterally. No accessory muscle use. GASTROINTESTINAL: Abdomen soft and nondistended. Patient has tenderness to upper abdomen to palpation.. MUSCULOSKELETAL: No cyanosis, or edema. BACK: Nontender without obvious deformity. No CVA tenderness. Data Data Last Documented VS Vital Signs Date Time Temp Pulse Resp B/P (MAP) Pulse Ox O2 Delivery O2 Flow Rate FiO2 09/25/17 12:17 98.7 98 18 158/80 (106) 99 Orders Orders Electrocardiogram (09/25/17 12:34) Complete Blood Count With Diff (09/25/17 12:34) Comprehensive Metabolic Panel (09/25/17 12:34) Magnesium (Mg) (09/25/17 12:34) Ckmb (Isoenzyme) Profile (09/25/17 12:34) Troponin I (09/25/17 12:34) Act Partial Throm Time (Ptt) (09/25/17 12:34) Prothrombin Time / Inr (Pt) (09/25/17 12:34) Urinalysis - C+S If Indicated (09/25/17 12:34) Chest, Single Ap (09/25/17 12:34) Ct Brain W/O Iv Contrast(Rout) (09/25/17 12:34) Ecg Monitoring (09/25/17 12:34) Iv Access Insert/Monitor (09/25/17 12:34) Oximetry (09/25/17 12:34) Sodium Chloride 0.9% Flush (Ns Flush) (09/25/17 12:45) Sodium Chlor 0.9% 1000 Ml Inj (Ns 1000 M (09/25/17 12:34) Lipase (09/25/17 12:34) Lactic Acid Sepsis Protocol (09/25/17 12:34) Ct Abd/Pel W Iv Contrast(Rout) (09/25/17 ) MDM Medical Decision Making Medical Screen Exam Complete: Yes Emergency Medical Condition: Yes Medical Record Reviewed: Yes Differential Diagnosis Pancreatitis versus gastritis versus dehydration versus electrolyte abnormality versus acute kidney injury versus rhabdomyolysis Narrative Course 82-year-old male presents to the emergency department from nursing facility for evaluation of abdominal pain and not eating for 5 days. He does appear very dry on my exam. Patient is originally seen in the ambulance hallway. Workup is initiated. Patient will be transferred to a medical pod for further evaluation and disposition. Patient was moved to E pod. Dr. Baez will resume care and disposition of patient. Linda Huffman Sep 25, 2017 12:40
[2017-09-25] MEDS ORDERED: SODIUM CHLORIDE 0.9% FLUSH 10 ML FLUSH IVF PRN (12:45)
[2017-09-25 13:26] LABS: BACTERIA, URINE OCC /hpf; BLOOD, URINE SMALL (NEG); GLUCOSE,URINE NEG (NEG); KETONE, URINE 40 mg/dL (NEG); MUCUS URINE MANY /lpf (OCC); NITRITE,URINE NEG (NEG); PH, URINE 5.5 (5.0-8.5); URINE COLOR YELLOW (YELLW/STRAW); URINE LEUKOCYTE ESTERASE LARGE (NEG); WHITE BLOOD CELL CLUMPS RARE
[2017-09-25 13:28] LABS: BILIRUBIN, URINE NEG (NEG)
[2017-09-25 13:29] LABS: ALBUMIN 2.6 GM/DL (3.4-5.0); ALT (GPT) 49 U/L (12-78); AST (GOT) 27 U/L (15-37); BICARBONATE 25.1 MEQ/L (21.0-32.0); BLOOD UREA NITROGEN 11 MG/DL (7-18); CHLORIDE 99 MEQ/L (98-107); CREATININE 0.59 MG/DL (0.60-1.30); GLOMERULAR FILTRATION RATE 131 ML/MIN (>89); GLUCOSE,RANDOM 85 MG/DL (74-106); MAGNESIUM 1.9 MG/DL (1.5-2.5); SODIUM (NA) 137 MEQ/L (136-145)
--- NOTE | 2017-09-25 13:30 | RADRPT ---
EXAM DATE/TIME: 09/25/2017 13:11 [facility] COMPARISON: CHEST EXPIRATION ONLY, September 04, 2017, 17:06. CHEST SINGLE AP, September 03, 2017, 11:18. INDICATIONS : Unobatinable MEDICAL HISTORY : Unobtainable SURGICAL HISTORY : Unobtainable ENCOUNTER: Initial ACUITY: 1 day PAIN SCORE: Non-responsive. LOCATION: Bilateral chest FINDINGS: Continued bibasilar infiltrates which appear to be mildly improved compared to the prior study. The u pper lung stout remain clear. The heart size is enlarged but stable. There is no pneumothorax. The b aneesh structures are stable. CONCLUSION: Mild improvement in the bibasilar infiltrates compared to the prior study. Pavel Alvarenga MD on September 25, 2017 at 13:28 Board Certified Radiologist. This report was verified electronically.
[2017-09-25 13:33] LABS: ALKALINE PHOSPHATASE 98 U/L (45-117); TOTAL BILIRUBIN ADULT 0.5 MG/DL (0.2-1.0); TROPONIN I LESS THAN 0.02 NG/ML (0.02-0.05)
--- NOTE | 2017-09-25 14:13 | RADRPT ---
EXAM DATE/TIME: 09/25/2017 13:56 [facility] COMPARISON: CT BRAIN W/O CONTRAST, August 25, 2017, 0:02. INDICATIONS : Dizziness,confused RADIATION DOSE: 44.52 CTDIvol (mGy) MEDICAL HISTORY : Afib,melanoma SURGICAL HISTORY : None. ENCOUNTER: Initial ACUITY: 1 day PAIN SCALE: 8/10 LOCATION: cranial TECHNIQUE: Multiple contiguous axial images were obtained of the head. Using automated exposure control and adj ustment of the mA and/or kV according to patient size, radiation dose was kept as low as reasonably a chievable to obtain optimal diagnostic quality images. DICOM format image data is available electro nically for review and comparison. FINDINGS: CEREBRUM: Interval evolution of previously described left subdural hygroma now measures 4 mm without midline sh ift. Moderate cerebral atrophy. The ventricles are normal for degree of atrophy. Periventricular whi te matter hypodensities No evidence of midline shift, mass lesion, hemorrhage or acute infarction. N o extra-axial fluid collections are seen. POSTERIOR FOSSA: The cerebellum and brainstem are intact. The 4th ventricle is midline. The cerebellopontine angle i s unremarkable. EXTRACRANIAL: The visualized portion of the orbits is intact. SKULL: The calvaria is intact. No evidence of skull fracture. CONCLUSION: 1. Evolving left subdural hygroma which now measures 4 mm without midline shift. 2. Senescent changes with ischemic. Anterior white matter demyelination. 3. No acute abnormality or other significant interval change. Ric Gómez MD on September 25, 2017 at 14:08 Board Certified Radiologist. This report was verified electronically.
[2017-09-25] MEDS ORDERED: IOHEXOL 350 MG/ML 10 ML VIAL (for RAD DIAG) IVCONTRAST ONE (14:25)
--- NOTE | 2017-09-25 14:27 | RADRPT ---
EXAM DATE/TIME: 09/25/2017 14:04 [facility] COMPARISON: CT ABDOMEN & PELVIS W CONTRAST, January 10, 2017, 22:37. INDICATIONS : Abdomen pain not eating IV CONTRAST: 80 cc Omnipaque 350 (iohexol) IV ORAL CONTRAST: No oral contrast ingested. RADIATION DOSE: 8.05 CTDIvol (mGy) MEDICAL HISTORY : A fib melanoma SURGICAL HISTORY : None. ENCOUNTER: Initial ACUITY: 1 day PAIN SCALE: 8/10 LOCATION: Abdomen TECHNIQUE: Volumetric scanning of the abdomen and pelvis was performed. Using automated exposure control and ad justment of the mA and/or kV according to patient size, radiation dose was kept as low as reasonably achievable to obtain optimal diagnostic quality images. DICOM format image data is available electro nically for review and comparison. FINDINGS: LOWER LUNGS: Bilateral pleural effusions with compressive atelectasis. Heart size is enlarged. LIVER: Homogeneous density without lesion. There is no dilation of the biliary tree. There continues to be stable periportal edema which is unchanged compared to the prior exam. The portal system is grossly i ntact. No calcified gallstones. SPLEEN: Normal size without lesion. PANCREAS: Within normal limits. KIDNEYS: Normal in size and shape. There is no mass, stone or hydronephrosis. ADRENAL GLANDS: Within normal limits. VASCULAR: There is no aortic aneurysm. Diffuse atherosclerotic changes. BOWEL/MESENTERY: The stomach, small bowel, and colon demonstrate no acute abnormality. There is no free intraperitone al air or fluid. 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 Large bolus of stool the re ctum. No inflammatory changes. ABDOMINAL WALL: There is edema throughout the body wall characteristic of anasarca. RETROPERITONEUM: There is no lymphadenopathy. BLADDER: Ansari catheter in the urinary bladder. Bladder decompressed. REPRODUCTIVE: Within normal limits. INGUINAL: There is no lymphadenopathy or hernia. MUSCULOSKELETAL: Stable primary degenerative changes. No significant changes compared to the prior study. CONCLUSION: 1. Bilateral pleural effusions and bibasilar atelectasis. 2. Nonspecific periportal edema. No change compared to the prior exam. 3. Anasarca 4. Moderate stool throughout the colon with no evidence of obstruction. 5. No significant changes compared to the prior study. Pavel Alvarenga MD on September 25, 2017 at 14:21 Board Certified Radiologist. This report was verified electronically.
[2017-09-25] MEDS ORDERED: cefTRIAXone INJ 1,000 MG in SODIUM CHLORIDE 0.9% INJ 100 ML IV ONE (14:30)
[2017-09-25] MEDS ORDERED: AZITHROMYCIN INJ 500 MG in SODIUM CHLOR 0.9% 250 ML INJ 250 ML IV ONE (14:30)
[2017-09-25 14:34] LABS: AUTOMATED NEUTROPHIL # 5.4 TH/MM3 (1.8-7.7); BASOPHIL % 0.3 % (0.0-2.0); EOSINOPHIL % 0.5 % (0.0-4.0); HEMATOCRIT 24.1 % (39.0-51.0); HEMOGLOBIN 8.1 GM/DL (13.0-17.0); LYMPH % 9.6 % (9.0-44.0); LYMPHOCYTE # 0.7 TH/MM3 (1.0-4.8); MEAN CELL VOLUME 92.4 FL (80.0-100.0); MEAN CORPUSCULAR HEMOGLOBIN 31.2 PG (27.0-34.0); MEAN CORPUSCULAR HGB CONC 33.8 % (32.0-36.0); MEAN PLATELET VOLUME 7.9 FL (7.0-11.0); MONO % 13.4 % (0.0-8.0); NEUT % 76.2 % (16.0-70.0); PLATELET COUNT 168 TH/MM3 (150-450); RED BLOOD COUNT 2.61 MIL/MM3 (4.50-5.90); RED CELL DISTRIBUTION WIDTH 15.9 % (11.6-17.2); WHITE BLOOD COUNT 7.1 TH/MM3 (4.0-11.0)
[2017-09-25 14:43] LABS: INTERNATIONAL NORMALIZED RATIO 1.3 RATIO; PROTHROMBIN TIME - PATIENT 13.5 SEC (9.8-11.6)
--- NOTE | 2017-09-25 15:13 | PD ---
Physical Exam Narrative GENERAL: 82-year-old male who appears uncomfortable SKIN: Focused skin assessment warm/dry. HEAD: Atraumatic. Normocephalic. EYES: No scleral icterus. No injection or drainage. ENT: No nasal bleeding or discharge. Mucous membranes pink and moist. NECK: Trachea midline. CARDIOVASCULAR: irregular rate and rhythm. RESPIRATORY: No accessory muscle use. no increased effort GASTROINTESTINAL: Abdomen soft, non-tender, nondistended. MUSCULOSKELETAL: No obvious deformities. No clubbing. No cyanosis. NEUROLOGICAL: Awake and alert. moves all extremities. Normal speech. Data Data Last Documented VS Vital Signs Date Time Temp Pulse Resp B/P (MAP) Pulse Ox O2 Delivery O2 Flow Rate FiO2 09/25/17 14:30 114 18 90/65 (73) 94 Room Air 09/25/17 13:29 2.00 09/25/17 12:17 98.7 Orders Orders Electrocardiogram (09/25/17 12:34) Complete Blood Count With Diff (09/25/17 12:34) Comprehensive Metabolic Panel (09/25/17 12:34) Magnesium (Mg) (09/25/17 12:34) Ckmb (Isoenzyme) Profile (09/25/17 12:34) Troponin I (09/25/17 12:34) Act Partial Throm Time (Ptt) (09/25/17 12:34) Prothrombin Time / Inr (Pt) (09/25/17 12:34) Urinalysis - C+S If Indicated (09/25/17 12:34) Chest, Single Ap (09/25/17 12:34) Ct Brain W/O Iv Contrast(Rout) (09/25/17 12:34) Ecg Monitoring (09/25/17 12:34) Iv Access Insert/Monitor (09/25/17 12:34) Oximetry (09/25/17 12:34) Sodium Chloride 0.9% Flush (Ns Flush) (09/25/17 12:45) Sodium Chlor 0.9% 1000 Ml Inj (Ns 1000 M (09/25/17 12:34) Lipase (09/25/17 12:34) Lactic Acid Sepsis Protocol (09/25/17 12:34) Ct Abd/Pel W Iv Contrast(Rout) (09/25/17 ) Urine Culture (09/25/17 13:00) CKMB (09/25/17 13:00) CKMB% (09/25/17 13:00) Ceftriaxone Inj (Rocephin Inj) (09/25/17 14:30) Azithromycin Inj (Zithromax Inj) (09/25/17 14:30) Iohexol 350 Inj (Omnipaque 350 Inj) (09/25/17 14:25) Acetaminophen (Tylenol) (09/25/17 15:15) Vital Signs (Adult) Q4H (09/25/17 15:43) Activity Oob With Assistance (09/25/17 15:43) Erection Shop Supervisor / Telemetry .CONTINUOUS (09/25/17 15:43) Intake + Output ANGÉLICA.QSHIFT (09/25/17 15:43) Diet Heart Healthy (09/25/17 Dinner) Sodium Chloride 0.9% Flush (Ns Flush) (09/25/17 15:45) Sodium Chloride 0.9% Flush (Ns Flush) (09/25/17 21:00) Basic Metabolic Panel (Bmp) (09/26/17 06:00) Complete Blood Count With Diff (09/26/17 06:00) Pt Request For Service (09/25/17 15:43) Case Management Consult (09/25/17 15:43) Naloxone Inj (Narcan Inj) (09/25/17 15:45) Admit Order (Ed Use Only) (09/25/17 15:52) Labs Laboratory Tests Test 09/25/17 13:00 09/25/17 14:19 Urine Color YELLOW Urine Turbidity HAZY Urine pH 5.5 Urine Specific [place] 1.023 Urine Protein 30 mg/dL Urine Glucose (UA) NEG mg/dL Urine Ketones 40 mg/dL Urine Occult Blood SMALL Urine Nitrite NEG Urine Bilirubin NEG Urine Urobilinogen 2.0 MG/DL Urine Leukocyte Esterase LARGE Urine RBC 8 /hpf Urine WBC 121 /hpf Urine WBC Clumps RARE Urine Bacteria OCC /hpf Urine Mucus MANY /lpf Microscopic Urinalysis Comment CULTURE INDICATED Blood Urea Nitrogen 11 MG/DL Creatinine 0.59 MG/DL Random Glucose 85 MG/DL Total Protein 6.0 GM/DL Albumin 2.6 GM/DL Calcium Level 8.0 MG/DL Magnesium Level 1.9 MG/DL Alkaline Phosphatase 98 U/L Aspartate Amino Transf (AST/SGOT) 27 U/L Alanine Aminotransferase (ALT/SGPT) 49 U/L Total Bilirubin 0.5 MG/DL Sodium Level 137 MEQ/L Potassium Level 3.7 MEQ/L Chloride Level 99 MEQ/L Carbon Dioxide Level 25.1 MEQ/L Anion Gap 13 MEQ/L Estimat Glomerular Filtration Rate 131 ML/MIN Lactic Acid Level 1.4 mmol/L Total Creatine Kinase 140 U/L Creatine Kinase MB 3.9 NG/ML Troponin I LESS THAN 0.02 NG/ML Lipase 61 U/L White Blood Count 7.1 TH/MM3 Red Blood Count 2.61 MIL/MM3 Hemoglobin 8.1 GM/DL Hematocrit 24.1 % Mean Corpuscular Volume 92.4 FL Mean Corpuscular Hemoglobin 31.2 PG Mean Corpuscular Hemoglobin Concent 33.8 % Red Cell Distribution Width 15.9 % Platelet Count 168 TH/MM3 Mean Platelet Volume 7.9 FL Neutrophils (%) (Auto) 76.2 % Lymphocytes (%) (Auto) 9.6 % Monocytes (%) (Auto) 13.4 % Eosinophils (%) (Auto) 0.5 % Basophils (%) (Auto) 0.3 % Neutrophils # (Auto) 5.4 TH/MM3 Lymphocytes # (Auto) 0.7 TH/MM3 Monocytes # (Auto) 1.0 TH/MM3 Eosinophils # (Auto) 0.0 TH/MM3 Basophils # (Auto) 0.0 TH/MM3 CBC Comment DIFF FINAL Differential Comment Prothrombin Time 13.5 SEC Prothromb Time International Ratio 1.3 RATIO Activated Partial Thromboplast Time 29.4 SEC [facility] Supervised Visit with MINI: No (signed over to my care from [facility]) Interpretation(s) CBC & BMP Diagram 09/25/17 13:00 Total Protein 6.0 L, Albumin 2.6 L, Calcium Level 8.0 L, Magnesium Level 1.9, Alkaline Phosphatase 98, Aspartate Amino Transf (AST/SGOT) 27, Alanine Aminotransferase (ALT/SGPT) 49, Total Bilirubin 0.5 09/25/17 14:19 Last [address] 09/25/17 1234 Signed Impressions: Service Date/Time: Monday, September 25, 2017 13:56 - CONCLUSION: 1. Evolving left subdural hygroma which now measures 4 mm without midline shift. 2. Senescent changes with ischemic. Anterior white matter demyelination. 3. No acute abnormality or other significant interval change. Ric Gómez MD Abdomen/Pelvis CT 09/25/17 0000 Signed Impressions: Service Date/Time: Monday, September 25, 2017 14:04 - CONCLUSION: 1. Bilateral pleural effusions and bibasilar atelectasis. 2. Nonspecific periportal edema. No change compared to the prior exam. 3. Anasarca 4. Moderate stool throughout the colon with no evidence of obstruction. 5. No significant changes compared to the prior study. Pavel Alvarenga MD Narrative Course This is a 82-year-old male who notes pain to his bilateral heels and appears confused. Workup reveals UTI. He was given Rocephin. On reassessment he is tachycardic and hypotensive. He will be admitted for observation. Sepsis Criteria SIRS Criteria (2 or more): Heart rate over 90 Sepsis Criteria (SIRS+source): Infect source susp/known Physician Communication Physician Communication dr ames agrees to admit Diagnosis Primary Impression: UTI (urinary tract infection) Qualified Codes: N39.0 - Urinary tract infection, site not specified Additional Impressions: Hypotension Qualified Codes: I95.9 - Hypotension, unspecified Anemia Qualified Codes: D64.9 - Anemia, unspecified Admitting Information Admitting Physician Requests: Observation Nadia Baez MD Sep 25, 2017 15:12
[2017-09-25] MEDS ORDERED: ACETAMINOPHEN 325 MG TAB PO ONE (15:15)
[2017-09-25] MEDS ORDERED: SODIUM CHLORIDE 0.9% FLUSH 10 ML FLUSH IV FLUSH PRN ×2 (15:45→20:30)
[2017-09-25] MEDS ORDERED: NALOXONE HCL 0.4 MG/ML AMP IV PUSH PRN (15:45)
[2017-09-25] MEDS ORDERED: MORPHINE SULFATE 2 MG/ML INJ IV PUSH PRN (16:15)
--- NOTE | 2017-09-25 16:30 | HHI.HP ---
[facility] Raf[facility] M[facility]. Admission Diagnosis uti, hypotension Diagnoses: Travel History International Travel<30 Days: No Contact w/Intl Traveler <30 Da: No Traveled to Known Affected Are: No History of Present Illness History for ER physician communication, and review of medical records. Patient himself is able to give only minimal history. Patient is noted to be screaming and moaning in pain while in the ER. On review of records from the senior living, patient was sent to the hospital because of abdominal pain which was going on for the past 5 days. Studies done at the nursing facility includes KUB, urine culture which was growing Pseudomonas. Patient was started on ciprofloxacin at the nursing facility. He was then sent to the hospital for further management. At the time of my arrival, patient is moaning in pain. He was extremely difficult to get his history. However he answered no to most of the review of system except for the fact that he is in pain. He initially pointed to suprapubic area for pain. Patient had indwelling Ansari catheter from the facility. Later on, patient pointed more to the right inguinal area going down his scrotum. In the emergency room, patient was complaining of pain pretty much everywhere initially. CT imaging reveals constipation with no acute findings. Patient was recently discharged from our hospital on September 10, 2017.. medical records reviewed Review of Systems ROS Limitations: Other (difficult to assess, as pt is screaming and moaning) Past Family Social History Past Medical History Hospitalized here from August 25, 2017 to September 10, 2017. 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 fib with RVR Rhabdomyolysis Acute kidney injury secondary to salicylate poisoning/rhabdo GI bleed with status post EGD showing 2 ulcers. EGD revealing esophageal structure distally requiring biopsy and dilatation Gallbladder wall thickening without stones Chronic subdural hygroma Past Surgical History Reviewed on EMR Allergies: Coded Allergies: No Known Allergies (Verified Allergy, Unknown, 09/25/17) Family History Unknown Social History Unknown from patient. Per prior history, there is history of polysubstance abuse. However patient has been in senior living Physical Exam Vital Signs Vital Signs Date Time Temp Pulse Resp B/P (MAP) Pulse Ox O2 Delivery O2 Flow Rate FiO2 09/25/17 14:30 114 18 90/65 (73) 94 Room Air 09/25/17 13:30 120 17 90/55 (67) 94 Room Air 09/25/17 13:29 96 Nasal Cannula 2.00 09/25/17 12:17 98.7 98 18 158/80 (106) 99 Physical Exam GENERAL: This is a thin elderly patient, seems to be in severe pain and moaning and screaming. Heart rate ranging from 110 to 130s. Blood pressure ranging from 80s over 50s to 110/60. SKIN: No rashes, ecchymoses or lesions. Cool and dry. HEAD: Atraumatic. Normocephalic. No temporal or scalp tenderness. EYES: No scleral icterus. No injection or drainage. ENT: Nose without bleeding, purulent drainage or septal hematoma. Airway patent. NECK: Trachea midline. Supple, no meningeal signs. Positive JVD. CARDIOVASCULAR: Irregularly irregular, tachycardic, no murmur appreciated. Limited exam due to patient's screaming. RESPIRATORY: Bilaterally decreased air entry. GASTROINTESTINAL: Abdomen is soft nontender on examination with distraction. Initially seems to have suprapubic tenderness. This was resolved after Ansari catheter was changed. MUSCULOSKELETAL: Extremities without clubbing, cyanosis, or edema. No calf tenderness. NEUROLOGICAL: Awake. Able to answer some questions but immediately Screaming for pain. Not following commands. Normal speech. Laboratory Laboratory Tests Test 09/25/17 13:00 09/25/17 14:19 Urine Color YELLOW Urine Turbidity HAZY Urine pH 5.5 Urine Specific [place] 1.023 Urine Protein 30 Urine Glucose (UA) NEG Urine Ketones 40 Urine Occult Blood SMALL Urine Nitrite NEG Urine Bilirubin NEG Urine Urobilinogen 2.0 Urine Leukocyte Esterase LARGE Urine RBC 8 Urine WBC 121 Urine WBC Clumps RARE Urine Bacteria OCC Urine Mucus MANY Microscopic Urinalysis Comment CULTURE INDICATED Blood Urea Nitrogen 11 Creatinine 0.59 Random Glucose 85 Total Protein 6.0 Albumin 2.6 Calcium Level 8.0 Magnesium Level 1.9 Alkaline Phosphatase 98 Aspartate Amino Transf (AST/SGOT) 27 Alanine Aminotransferase (ALT/SGPT) 49 Total Bilirubin 0.5 Sodium Level 137 Potassium Level 3.7 Chloride Level 99 Carbon Dioxide Level 25.1 Anion Gap 13 Estimat Glomerular Filtration Rate 131 Lactic Acid Level 1.4 Total Creatine Kinase 140 Creatine Kinase MB 3.9 Troponin I LESS THAN 0.02 Lipase 61 White Blood Count 7.1 Red Blood Count 2.61 Hemoglobin 8.1 Hematocrit 24.1 Mean Corpuscular Volume 92.4 Mean Corpuscular Hemoglobin 31.2 Mean Corpuscular Hemoglobin Concent 33.8 Red Cell Distribution Width 15.9 Platelet Count 168 Mean Platelet Volume 7.9 Neutrophils (%) (Auto) 76.2 Lymphocytes (%) (Auto) 9.6 Monocytes (%) (Auto) 13.4 Eosinophils (%) (Auto) 0.5 Basophils (%) (Auto) 0.3 Neutrophils # (Auto) 5.4 Lymphocytes # (Auto) 0.7 Monocytes # (Auto) 1.0 Eosinophils # (Auto) 0.0 Basophils # (Auto) 0.0 CBC Comment DIFF FINAL Differential Comment Prothrombin Time 13.5 Prothromb Time International Ratio 1.3 Activated Partial Thromboplast Time 29.4 Date/Time Source Procedure Growth Status 09/25/17 13:00 Urine Clean Catch Urine Culture Pending Worksheet Result Diagram: 09/25/17 1419 09/25/17 1300 Imaging kub 09/20/17- constipation, no impaction, no renal stones urine cx 09/23/17- pseudomonas aeruginosa- was started on cipro 500mg po bid there sensitvity reviewed 09/24/17 repeat kub at [facility]- no renal stone, no free air, no bowel obstruction or ileus, improved constipation Last [address] 09/25/17 1234 Signed Impressions: Service Date/Time: Monday, September 25, 2017 13:56 - CONCLUSION: 1. Evolving left subdural hygroma which now measures 4 mm without midline shift. 2. Senescent changes with ischemic. Anterior white matter demyelination. 3. No acute abnormality or other significant interval change. Ric Gómez MD Chest X-Ray 09/25/17 1234 Signed Impressions: Service Date/Time: Monday, September 25, 2017 13:11 - CONCLUSION: Mild improvement in the bibasilar infiltrates compared to the prior study. Pavel Alvarenga MD Scrotum Ultrasound 09/25/17 Signed Impressions: Service Date/Time: Monday, September 25, 2017 18:02 - CONCLUSION: 1. Normal appearance the left hemiscrotum with a greater than 6 cm cystic area without increased flow. A left testicle is not identified. 2. The right testicle has a normal appearance and intact flow by color Doppler. Rocael France MD Abdomen/Pelvis CT 09/25/17 Signed Impressions: Service Date/Time: Monday, September 25, 2017 14:04 - CONCLUSION: 1. Bilateral pleural effusions and bibasilar atelectasis. 2. Nonspecific periportal edema. No change compared to the prior exam. 3. Anasarca 4. Moderate stool throughout the colon with no evidence of obstruction. 5. No significant changes compared to the prior study. MD Betina Gonzales VTE Risk Assessment Caprini VTE Risk Assessment: Mod/High Risk (score >= 2) Caprini Risk Assessment Model Point Value = 1 Point Value = 2 Point Value = 3 Point Value = 5 Age 41-60 Minor surgery BMI > 25 kg/m2 Swollen legs Varicose veins or History of unexplained or recurrent spontaneous Oral contraceptives or hormone replacement Sepsis (< 1 month) Serious lung disease, including pneumonia (< 1 month) Abnormal pulmonary function Acute myocardial infarction Congestive heart failure (< 1 month) History of inflammatory bowel disease Medical patient at bed rest Age 61-74 Arthroscopic surgery Major open surgery (> 45 min) Laparoscopic surgery (> 45 min) Malignancy Confined to bed (> 72 hours) Immobilizing plaster cast Central venous access Age >= 75 History of VTE Family history of VTE Factor V Leiden Prothrombin [id number] Lupus anticoagulant Anticardiolipin antibodies Elevated serum homocysteine Heparin-induced thrombocytopenia Other congenital or acquired thrombophilia Stroke (< 1 month) Elective arthroplasty Hip, pelvis, or leg fracture Acute spinal cord injury (< 1 month) Prophylaxis Regimen Total Risk Factor Score Risk Level Prophylaxis Regimen 0-1 Low Early ambulation 2 Moderate Order ONE of the following: *Sequential Compression Device (SCD) *Heparin 5000 units SQ BID 3-4 Higher Order ONE of the following medications: *Heparin 5000 units SQ TID *Enoxaparin/Lovenox 40 mg SQ daily (WT < 150 kg, CrCl > 30 mL/min) *Enoxaparin/Lovenox 30 mg SQ daily (WT < 150 kg, CrCl > 10-29 mL/min) *Enoxaparin/Lovenox 30 mg SQ BID (WT < 150 kg, CrCl > 30 mL/min) AND/OR *Sequential Compression Device (SCD) 5 or more Highest Order ONE of the following medications: *Heparin 5000 units SQ TID (Preferred with Epidurals) *Enoxaparin/Lovenox 40 mg SQ daily (WT < 150 kg, CrCl > 30 mL/min) *Enoxaparin/Lovenox 30 mg SQ daily (WT < 150 kg, CrCl > 10-29 mL/min) *Enoxaparin/Lovenox 30 mg SQ BID (WT < 150 kg, CrCl > 30 mL/min) AND *Sequential Compression Device (SCD) Assessment and Plan Assessment and Plan Impression/ Plan: 1) Severe pain. Etiology unclear. Possible etiology. I have exchanged for the Anasri catheter and inserted a new one but this did not reveal any significant retention. Patient then later complained of right inguinal area pain. Examination did not reveal any significant scrotal edema or discoloration. However he does have pain on palpation of right inguinal area. 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 Discussed with radiologist. Reports noted. Urology was consulted and discussed over the phone. kub 09/20/17- constipation, no impaction, no renal stones 09/24/17 repeat kub at [facility]- no renal stone, no free air, no bowel obstruction or ileus, improved constipation CT abdomen and pelvis done today personally reviewed. No evidence of bowel obstruction/perforation/ischemia. 2) UTI with indwelling Ansari. Urine cultures growing pseudomonas from the senior living. September 23, 2017 Sensitivity reviewed. Continue Cipro 400 with grams IV every 12 hours. 3) Hypotension with tachycardia. Possible septic shock. Clinical, patient seems to be more of a distress from pain rather than infection though. Continue IV antibiotics, fluid resuscitation. 4) Low hemoglobin/possible GI bleed On review of records, patient's hemoglobin has dropped from his baseline in May 2017. He also was managed previously for GI bleed with ulcers on EGD August 2017. Therefore start patient on Protonix IV drip. Later while in emergency room by around 6:30 PM, patient started having black stools. His rectal is also prolapsed. Has ordered for transfusion 2 units of PRBC. Lasix after each unit of PRBC. 5) Bilateral pleural effusions Echocardiogram from August 29, 2017 reviewed. For now, patient is not really able to tolerate diuresis. Would likely need thoracocentesis if respiratory status is worsening. However at present, patient is saturating well on room air 6) A. fib with RVR Multifactorial. Secondary to volume depletion/GI bleed/distress from pain and agitation. We'll treat with IV fluid/blood transfusion. Hold off on rate control medications. DVT prophylaxis with SCD. GI prophylaxis on pantoprazole. This note was completed at 8:12 PM. I saw the patient starting at 4:30 PM and has been working on him on and off with the nurses and evaluating him again and again and his his complaint of pain is concerned me to me given that he is also tachycardic and hypotensive. After the above, I have discussed the case with soils analyst fish conservationist who came to see the patient at the bedside and will take over the case for critical care management. I have also called patient's son Franklyn Mitchell and informed him of patient's critical condition. I have informed Franklyn that patient is getting central line placement at present by the soils analyst at the bedside. He is agreeable to the procedure. However he did inform me that patient is DNR. I have reviewed prior palliative care notes from August 31, 2017 and September 04, 2017. He was DNR at that time and they were even considering hospice placement. I have therefore placed DNR orders. Code Status DNR DNR Discussed Condition With patient, ER , soils analyst , nursing staff Diaz Juan MD Sep 25, 2017 16:30
[2017-09-25] MEDS ORDERED: SODIUM CHLORID 0.9% 500 ML INJ 500 ML IV ONE (17:00)
[2017-09-25] MEDS ORDERED: LACTULOSE SYRUP 20 GM/30 ML CUP PO ONE (17:15)
[2017-09-25] MEDS ORDERED: MILKSUS PO (18:23)
[2017-09-25] MEDS ORDERED: TYLE325T PO (18:23)
[2017-09-25] MEDS ORDERED: SERO50TA PO (18:23)
[2017-09-25] MEDS ORDERED: CIPR-9 PO (18:23)
[2017-09-25] MEDS ORDERED: LOPE1TAB36 PO (18:23)
--- NOTE | 2017-09-25 18:54 | RADRPT ---
EXAM DATE/TIME: 09/25/2017 18:02 [place] COMPARISON: CT ABDOMEN & PELVIS W CONTRAST, September 25, 2017, 14:04. INDICATIONS : Testicular pain. MEDICAL HISTORY : Hypercholesterolemia. Benign prostatic hyperplasia, (BPH) Afib. Abdominal pain. Melanoma. Insomnia. T obacco use. SURGICAL HISTORY : Eye surgery. Right nare removal. Pins to left shoulder. ENCOUNTER: Initial ACUITY: 1 day PAIN SCORE: 10/10 LOCATION: Bilateral testicles. MEASUREMENTS: RIGHT TESTICLE: 4.3 x 2.8 x 2.3cm LEFT TESTICLE: Not visualized FINDINGS: RIGHT TESTICLE: Homogeneous echotexture without intra or extratesticular mass. Blood flow is symmetric and within no rmal limits. No hydrocele or varicocele. Epididymis is within normal limits. LEFT TESTICLE: Abnormal. There is a large oval fluid structure in the left hemiscrotum which measures 4.1 x 5.5 x 6 .1 cm. No increased flow within or around this structure on color Doppler. Superior to the large cy [address], there is some heterogeneous echotexture material which does not demonstrate increased flow by col or Doppler and has ill-defined margins, but measures in excess of 3 cm. SCROTUM: Diffuse scrotal skin thickening. CONCLUSION: 1. Normal appearance the left hemiscrotum with a greater than 6 cm cystic area without increased flow . A left testicle is not identified. 2. The right testicle has a normal appearance and intact flow by color Doppler. Rocael France MD on September 25, 2017 at 18:38 Board Certified Radiologist. This report was verified electronically.
[2017-09-25] MEDS: SODIUM CHLOR 0.9% 1000 ML INJ 1,000 ML IV SCH ×2 (19:00→21:24)
[2017-09-25] MEDS ORDERED: FUROSEMIDE 20 MG/2 ML VIAL IV PUSH ONE (19:00)
[2017-09-25] MEDS ORDERED: CIPROFLOXACIN 400 MG PREMIX 200 ML IV SCH (19:00)
--- NOTE | 2017-09-25 20:07 | PD.CONS ---
[facility] Service Critical Care Medicine Consult Requested By Dr. Juan Reason for Consult Hypotension, abdominal pain Primary Care Physician Rafy Cagle M.D. History of Present Illness This is a 82-year-old male. He is DNR verified with Franklyn Mitchell . He is a resident of a skilled nursing. He presented to [facility] from his skilled nursing with a 5 day history of abdominal pain. Documented previous diagnosis of Pseudomonas urinary tract infection treated with ciprofloxacin. Noted patient was previously admitted here early August with a left subdural hygroma, spontaneous pneumothorax requiring chest tube placement and GI bleed requiring upper endoscopy. Was seen by multiple consultants and was discharged to an F on September 10. Baseline laboratories revealed normal lactate. Normal white blood cell counts with a normocytic anemia of 8. Albumin is low. Creatinine is 1.3. CT abdomen/ pelvis revealed bilateral pleural effusions, constipation/stool in the rectal vault. No other acute findings. Due to the fact patient is complaining of right inguinal pain and a scrotal ultrasound performed which revealed a left cystic mass. Right testicle within normal limits. Patient became more hypotensive in the ED. Essentially this place and patient was started on broad-spectrum antibiotics including vancomycin, cefepime, levofloxacin and metronidazole. EF is cholo will start a regimen of diltiazem and Marcelino-Synephrine for rate control. CVP will be ordered. Transfuse as clinically indicated. We will see in consultation Review of Systems ROS Limitations: Altered Mental Status Past Family Social History Allergies: Coded Allergies: No Known Allergies (Verified Allergy, Unknown, 09/25/17) Past Medical History Chronic atrial fibrillation BPH Hypertension Dyslipidemia Gastroesophageal reflux disease Lymphocytic colitis History of colonic polyps Coronary artery disease Tobacco abuse EtOH use Erosive esophagitis Past Surgical History Right shoulder replacement Reported Medications Dicyclomine 10 mg p.o. 3 times daily Tamsulosin 0.4 mg p.o. daily Lovastatin 20 mg p.o. daily Doxazosin 4 mg p.o. daily Amlodipine 5 mg p.o. daily Diltiazem 60 mg p.o. every 6 hours Trazodone 50 mg p.o. 3 times daily Quetiapine 50 mg p.o. twice daily Hydrocodone/acetaminophen 7.5/25 1 tablet every 4 hours as needed pain Active Ordered Medications Reviewed in EMR Family History Negative for coronary artery disease. Son with bladder cancer. Social History 1-1/2 pack per day tobacco use. 2-5 beers in the recent past. No IV drug use Physical Exam Vital Signs Vital Signs Date Time Temp Pulse Resp B/P (MAP) Pulse Ox O2 Delivery O2 Flow Rate FiO2 09/25/17 19:00 127 18 86/51 (63) 97 Room Air 09/25/17 17:43 121 18 118/55 (76) 95 Room Air 09/25/17 17:03 113 18 86/65 (72) 96 Room Air 09/25/17 16:36 113 20 104/58 (73) 97 Room Air 09/25/17 14:30 114 18 90/65 (73) 94 Room Air 09/25/17 13:30 120 17 90/55 (67) 94 Room Air 09/25/17 13:29 96 Nasal Cannula 2.00 09/25/17 12:17 98.7 98 18 158/80 (106) 99 Physical Exam GENERAL: 82-year-old male currently resting in bed on room air SKIN: Warm and dry. Multiple upper extremity ecchymoses HEAD: Atraumatic. Normocephalic. EYES: Pupils equal and round. No scleral icterus. No injection or drainage. ENT: No nasal bleeding or discharge. Mucous membranes pink and moist. NECK: Trachea midline. No JVD. CARDIOVASCULAR: Tachycardic, IR. S1, S2 predose repair without murmur RESPIRATORY: Minute breath sounds in the posterior bases. No crackles appreciated GASTROINTESTINAL: Abdomen soft, nondistended. Tender to palpation right inguinal region. Positive guarding. No rigidity. Positive bowel sounds MUSCULOSKELETAL: Extremities without clubbing, cyanosis, or edema.. NEUROLOGICAL: Awake and alert. No obvious cranial nerve deficits. Motor grossly within normal limits. Five out of 5 muscle strength in the arms and legs. Normal speech. Laboratory Laboratory Tests Test 09/25/17 13:00 09/25/17 14:19 Urine Color YELLOW Urine Turbidity HAZY Urine pH 5.5 Urine Specific Doyle 1.023 Urine Protein 30 Urine Glucose (UA) NEG Urine Ketones 40 Urine Occult Blood SMALL Urine Nitrite NEG Urine Bilirubin NEG Urine Urobilinogen 2.0 Urine Leukocyte Esterase LARGE Urine RBC 8 Urine WBC 121 Urine WBC Clumps RARE Urine Bacteria OCC Urine Mucus MANY Microscopic Urinalysis Comment CULTURE INDICATED Blood Urea Nitrogen 11 Creatinine 0.59 Random Glucose 85 Total Protein 6.0 Albumin 2.6 Calcium Level 8.0 Magnesium Level 1.9 Alkaline Phosphatase 98 Aspartate Amino Transf (AST/SGOT) 27 Alanine Aminotransferase (ALT/SGPT) 49 Total Bilirubin 0.5 Sodium Level 137 Potassium Level 3.7 Chloride Level 99 Carbon Dioxide Level 25.1 Anion Gap 13 Estimat Glomerular Filtration Rate 131 Lactic Acid Level 1.4 Total Creatine Kinase 140 Creatine Kinase MB 3.9 Troponin I LESS THAN 0.02 Lipase 61 White Blood Count 7.1 Red Blood Count 2.61 Hemoglobin 8.1 Hematocrit 24.1 Mean Corpuscular Volume 92.4 Mean Corpuscular Hemoglobin 31.2 Mean Corpuscular Hemoglobin Concent 33.8 Red Cell Distribution Width 15.9 Platelet Count 168 Mean Platelet Volume 7.9 Neutrophils (%) (Auto) 76.2 Lymphocytes (%) (Auto) 9.6 Monocytes (%) (Auto) 13.4 Eosinophils (%) (Auto) 0.5 Basophils (%) (Auto) 0.3 Neutrophils # (Auto) 5.4 Lymphocytes # (Auto) 0.7 Monocytes # (Auto) 1.0 Eosinophils # (Auto) 0.0 Basophils # (Auto) 0.0 CBC Comment DIFF FINAL Differential Comment Prothrombin Time 13.5 Prothromb Time International Ratio 1.3 Activated Partial Thromboplast Time 29.4 Date/Time Source Procedure Growth Status 09/25/17 13:00 Urine Clean Catch Urine Culture Pending Worksheet Result Diagram: 09/25/17 1419 09/25/17 1300 Imaging Last Impressions Head CT 09/25/17 1234 Signed Impressions: Service Date/Time: Monday, September 25, 2017 13:56 - CONCLUSION: 1. Evolving left subdural hygroma which now measures 4 mm without midline shift. 2. Senescent changes with ischemic. Anterior white matter demyelination. 3. No acute abnormality or other significant interval change. Ric Gómez MD Chest X-Ray 09/25/17 1234 Signed Impressions: Service Date/Time: Monday, September 25, 2017 13:11 - CONCLUSION: Mild improvement in the bibasilar infiltrates compared to the prior study. Pavel Alvarenga MD Scrotum Ultrasound 09/25/17 0000 Signed Impressions: Service Date/Time: Monday, September 25, 2017 18:02 - CONCLUSION: 1. Normal appearance the left hemiscrotum with a greater than 6 cm cystic area without increased flow. A left testicle is not identified. 2. The right testicle has a normal appearance and intact flow by color Doppler. Rocael France MD Abdomen/Pelvis CT 09/25/17 0000 Signed Impressions: Service Date/Time: Monday, September 25, 2017 14:04 - CONCLUSION: 1. Bilateral pleural effusions and bibasilar atelectasis. 2. Nonspecific periportal edema. No change compared to the prior exam. 3. Anasarca 4. Moderate stool throughout the colon with no evidence of obstruction. 5. No significant changes compared to the prior study. Pavel Alvarenga MD Septic Shock Reassessment Septic shock perfusion: reassessment completed Assessment and Plan Assessment and Plan Neuro/Psych: Left subdural hygroma without shift Depression disorder NOS Pain management CT brain 09/25 revealed a left subdural hygroma 4 mm in size without shift with periventricular white matter changes Patient will be on morphine 2-4 mg IV every 2 hours as needed pain 1 through 10 Acetaminophen 600 mg p.o. every 6 hours as needed fever Continue quetiapine 50 mg p.o. twice daily Continue trazodone 50 mg p.o. 3 times daily Patient is on hydrocodone/acetaminophen 7.5/325 as needed at [facility] CV: Atrial fibrillation with rapid ventricular response History of hypertension Dyslipidemia Shock -sepsis versus hemorrhagic shock Start on diltiazem drip titrate to keep heart rate less than 100 with phenylephrine drip to maintain mean arterial pressure greater than equal to 65 Holding lovastatin 20 mill grams p.o. daily. Resume when clinically indicated Holding amlodipine 5 mg p.o. daily Echocardiogram 09/09 revealed EF around 50-55 %. LVH. Mild MR, AR and TR Troponin 0 0.02 Resp: Bilateral pleural effusions Tobaccoism Chest x-ray revealed improving pulmonary congestion. Nasal cannula to maintain saturations greater than equal to 92% Incentive spirometer while awake Chest x-ray in a.m. 09/26 Albuterol/ipratropium aerosols every 6 hours as needed aerosols every 2 hours as needed dyspnea Self-education tobacco cessation booklet has been provided GI: Abdominal pain NOS History of lymphocytic colitis History of erosive esophagitis Gastroesophageal reflux disease History of colonic polyps Hypoalbuminemia Recent endoscopy 09/09 revealed above findings. Currently n.p.o. Pantoprazole for GI prophylaxis Docusate sodium/senna 1 tablet twice daily for bowel regimen CT abdomen/pelvis revealed bilateral pleural effusions. Constipation. No acute findings. Lactate 1.4. Check amylase and lipase repeat LFTs in a.m. Low threshold for repeat imaging : BPH Holding tamsulosin 0.4 mg daily and doxazosin 4 mg daily Endo: Sliding scale insulin with Accu-Cheks to maintain euglycemia Novulin R before meals at bedtime Renal: Creatinine currently 1.3 Currently on normal saline at 84 cc an hour 2 L normal saline in ED Monitor urine output Accurate I's and O's Heme: Normocytic anemia Monitor CBC daily. Follow trends Typed and screened Hemoglobin every 6 hours. Transfuse as clinically indicated ID: History of Pseudomonas UTI Blood cultures 2, UA ordered Patient is currently in vancomycin 1 1 g, cefepime 2 g IV every 12 hours levofloxacin 750 mg IV daily and metronidazole 500 mg every 6 hours FEN: Replace electrolytes as clinically indicated MSK: PT evaluate and treat Access -Right IJ CVL placed 3/ day #1 Prophylaxis -GI -pantoprazole -DVT -SCD/pharmacological prophylaxis culture indicated with possible lower GI bleed and subdural hygroma Critical Care: The total critical care time was 35 minutes. Time to perform other separately billable procedures was not included in the critical care time. Code Status DNR Discussed Condition With Dr. Juan. She discussed with son Franklyn Mitchell at [phone]. DNR status reaffirm. Care plan discussed and all questions answered. Hardy Tmo MD Sep 25, 2017 20:07
--- NOTE | 2017-09-25 20:10 | PD.PROCEDR ---
Central Line Procedure REASON FOR PROCEDURE Central venous access PROCEDURE PERFORMED Central line placement: Right IJ CVL CONSENT Informed consent for procedure was obtained. The risks and benefits of the procedure were discussed to include but limited to bleeding, clot formation, infection, and even . ANESTHESIA Local injection of 1% Lidocaine DESCRIPTION OF THE PROCEDURE The patient was placed in supine, mild Trendelenburg position. The area was exposed and cleansed with ChloraPrep, times two. Large sterile drape was used to cover the patient, with the site exposed, under sterile conditions including cap, face mask, sterile gown, and sterile gloves. On single attempt, the introducer needle was inserted with negative pressure in syringe and venous flash was obtained. The guide wire was then advanced without any restriction and the needle was removed. The dilator was used without any complications. Using Seldinger technique the antibiotic coated triple lumen catheter was advanced over the guide wire to a depth of 16 centimeters. The guide wire was removed. All ports were aspirated with dark venous blood return and flushed easily with sterile saline. All ports were capped. Antibiotic disc was placed around central line at puncture site. The central line was secured to the skin with two interrupted 2.0 silk sutures. The area was bandaged with sterile see- through central line bandage. RADIOLOGICAL DATA Ultrasound guidance was used to locate right internal jugular vein. Doppler/ color flow was used to confirm venous flow. COMPLICATIONS: No apparent complications ESTIMATED BLOOD LOSS: Less than 1 cc. Hardy Tom MD Sep 25, 2017 20:10
[2017-09-25] MEDS ORDERED: PHENYLEPHRINE INJ 160 MG in DEXTROSE 5% IN WATE 500 ML INJ 484 ML IV PRN ×2 (20:15)
[2017-09-25] MEDS ORDERED: DICYCLOMINE HCL 10 MG CAP PO PRN (20:15)
[2017-09-25] MEDS ORDERED: TERBUTALINE INJ 1 MG/ML AMP SQ PRN (20:15)
[2017-09-25] MEDS ORDERED: PANTOPRAZOLE INJ 80 MG in SODIUM CHLORIDE 0.9% INJ 35 ML IV ONE (20:25)
[2017-09-25] MEDS ORDERED: BISACODYL 10 MG SUPP RECTAL PRN (20:30)
[2017-09-25] MEDS ORDERED: DEXTROSE 50% IN WATER 50 ML VIAL(D50) IV PUSH PRN (20:30)
[2017-09-25] MEDS ORDERED: SENNOSIDES 8.6 MG TAB PO PRN (20:30)
[2017-09-25] MEDS ORDERED: CHLORHEXIDINE GLUCONATE 2 % 1 PACK (2 CLOTHS) TOP PRN (20:30)
[2017-09-25] MEDS ORDERED: MISCELLANEOUS NURSING INFORMATION XX SCH (20:30)
[2017-09-25] MEDS ORDERED: MAGNESIUM HYDROXIDE SUSP 30 ML CUP PO PRN (20:30)
[2017-09-25] MEDS ORDERED: ONDANSETRON HCL 4 MG/2 ML VIAL IV PUSH PRN (20:30)
[2017-09-25] MEDS ORDERED: RESP: ALBUTEROL 2.5 MG/3 ML NEB (PRN) INH (20:30)
[2017-09-25] MEDS ORDERED: GLUCAGON 1 MG/ML VIAL OTHER PRN (20:30)
[2017-09-25] MEDS ORDERED: LACTULOSE SYRUP 20 GM/30 ML CUP PO PRN (20:30)
[2017-09-25] MEDS ORDERED: ACETAMINOPHEN 325 MG TAB PO PRN (20:30)
--- NOTE | 2017-09-25 20:50 | RADRPT ---
EXAM DATE/TIME: 09/25/2017 20:17 [place] COMPARISON: CHEST SINGLE AP, September 25, 2017, 13:11. INDICATIONS : Central line placement. MEDICAL HISTORY : A-fib. Smoker. SURGICAL HISTORY : None. ENCOUNTER: Subsequent ACUITY: 2 days PAIN SCORE: 0/10 LOCATION: Bilateral chest FINDINGS: Right internal jugular catheter has been placed with the tip is at the distal superior vena cava. No evidence of pneumothorax. There is persistent consolidation of left mid and lower lung with loss of delineation of the entire left hemidiaphragm. Improved aeration of the right lower lung and the rig ht hemidiaphragm is now well delineated. No evidence of pneumothorax. CONCLUSION: Right IJ catheter in good position. No evidence of pneumothorax. Rocael France MD on September 25, 2017 at 20:47 Board Certified Radiologist. This report was verified electronically.
[2017-09-25] MEDS: SUCRALFATE 1 GM/10 ML CUP PO SCH (21:00)
[2017-09-25] MEDS: SODIUM CHLORIDE 0.9% FLUSH 10 ML FLUSH IV FLUSH SCH ×2 (21:00→21:24)
[2017-09-25] MEDS ORDERED: VANCOMYCIN INJ 1,000 MG in SODIUM CHLOR 0.9% 250 ML INJ 250 ML IV ONE (21:00)
[2017-09-25] MEDS: INSULIN NovoLIN REGULAR SUPPLEMENTAL SCALE SQ SCH (21:00)
[2017-09-25] MEDS: RESP: ALBUTEROL 2.5 MG/IPRATROPIUM 0.5 MG NEB (SCH) INH (21:13)
[2017-09-25] MEDS ORDERED: MORPHINE SULFATE 4 MG/ML INJ IV PUSH PRN (21:15)
[2017-09-25] MEDS: metroNIDAZOLE 500 MG INJ 100 ML IV SCH (21:22)
[2017-09-25] MEDS: PANTOPRAZOLE INJ 80 MG in SODIUM CHLORIDE 0.9% INJ 100 ML IV SCH (21:23)
[2017-09-25] MEDS: DILTIAZEM INJ 125 MG in SODIUM CHLORIDE 0.9% INJ 100 ML IV PRN (21:35)
[2017-09-25] MEDS: QUEtiapine FUMARATE 25 MG TAB PO SCH (21:54)
[2017-09-25] MEDS: DOCUSATE SODIUM 50 MG/SENNA 8.6 MG TAB PO SCH (21:54)
[2017-09-25] MEDS: CEFEPIME INJ 2,000 MG in SODIUM CHLORIDE 0.9% INJ 100 ML IV SCH (22:17)
[2017-09-26] VITALS (24 sets, daily range): BP systolic 78–177; BP diastolic 47–87; PULSE 94–140; RESP 18–20; TEMP 96.5–98.9; O2SAT 94–100
[2017-09-26] MEDS: LEVOFLOXACIN 750 MG PREMIX INJ 150 ML IV SCH ×2 (00:09→22:44)
[2017-09-26 00:53] LABS: HEMOGLOBIN 9.1 GM/DL (13.0-17.0)
[2017-09-26] MEDS: metroNIDAZOLE 500 MG INJ 100 ML IV SCH ×4 (03:22→20:11)
[2017-09-26] MEDS: CHLORHEXIDINE GLUCONATE 2 % 1 PACK (2 CLOTHS) TOP SCH (04:00)
[2017-09-26] MEDS: RESP: ALBUTEROL 2.5 MG/IPRATROPIUM 0.5 MG NEB (SCH) INH ×5 (04:37→20:14)
[2017-09-26] MEDS: SODIUM CHLOR 0.9% 1000 ML INJ 1,000 ML IV SCH ×3 (05:00→17:31)
[2017-09-26 05:47] LABS: AUTOMATED NEUTROPHIL # 6.4 TH/MM3 (1.8-7.7); BASOPHIL % 0.3 % (0.0-2.0); EOSINOPHIL % 0.1 % (0.0-4.0); HEMATOCRIT 28.6 % (39.0-51.0); HEMOGLOBIN 9.9 GM/DL (13.0-17.0); LYMPH % 8.1 % (9.0-44.0); LYMPHOCYTE # 0.7 TH/MM3 (1.0-4.8); MEAN CELL VOLUME 91.2 FL (80.0-100.0); MEAN CORPUSCULAR HEMOGLOBIN 31.6 PG (27.0-34.0); MEAN CORPUSCULAR HGB CONC 34.7 % (32.0-36.0); MEAN PLATELET VOLUME 7.6 FL (7.0-11.0); MONO % 14.2 % (0.0-8.0); MONOCYTE # 1.2 TH/MM3 (0-0.9); NEUT % 77.3 % (16.0-70.0); PLATELET COUNT 219 TH/MM3 (150-450); RED BLOOD COUNT 3.13 MIL/MM3 (4.50-5.90); RED CELL DISTRIBUTION WIDTH 15.1 % (11.6-17.2); WHITE BLOOD COUNT 8.3 TH/MM3 (4.0-11.0)
[2017-09-26] MEDS: PANTOPRAZOLE INJ 80 MG in SODIUM CHLORIDE 0.9% INJ 100 ML IV SCH ×2 (06:13→16:25)
[2017-09-26 06:14] LABS: INTERNATIONAL NORMALIZED RATIO 1.3 RATIO; PROTHROMBIN TIME - PATIENT 13.2 SEC (9.8-11.6)
[2017-09-26 06:18] LABS: ALBUMIN 2.2 GM/DL (3.4-5.0); AST (GOT) 24 U/L (15-37); BICARBONATE 23.3 MEQ/L (21.0-32.0); BLOOD UREA NITROGEN 14 MG/DL (7-18); CALCIUM 7.5 MG/DL (8.5-10.1); CHLORIDE 104 MEQ/L (98-107); CHOLESTEROL 77 MG/DL (120-200); CREATININE 0.65 MG/DL (0.60-1.30); GLOMERULAR FILTRATION RATE 117 ML/MIN (>89); GLUCOSE,RANDOM 85 MG/DL (74-106); MAGNESIUM 1.8 MG/DL (1.5-2.5); SODIUM (NA) 138 MEQ/L (136-145); TRIGLYCERIDES 66 MG/DL (42-150)
[2017-09-26 06:29] LABS: ALKALINE PHOSPHATASE 84 U/L (45-117); ALT (GPT) 42 U/L (12-78); CHOLESTEROL/ HDL RATIO 1.82 RATIO; FREE T4 1.13 NG/DL (0.76-1.46); HDL CHOLESTEROL 42.1 MG/DL (40.0-60.0); LDL CHOLESTEROL 22 MG/DL (0-99); PHOSPHORUS 2.9 MG/DL (2.5-4.9); TOTAL BILIRUBIN ADULT 1.2 MG/DL (0.2-1.0); TOTAL PROTEIN 5.6 GM/DL (6.4-8.2); TROPONIN I LESS THAN 0.02 NG/ML (0.02-0.05)
[2017-09-26] MEDS: INSULIN NovoLIN REGULAR SUPPLEMENTAL SCALE SQ SCH ×4 (08:00→21:00)
[2017-09-26] MEDS: SUCRALFATE 1 GM/10 ML CUP PO SCH ×4 (08:00→20:12)
[2017-09-26] MEDS: traZODone HCL 50 MG TAB PO SCH ×3 (08:45→17:50)
[2017-09-26] MEDS: QUEtiapine FUMARATE 25 MG TAB PO SCH ×2 (08:45→20:12)
[2017-09-26] MEDS: PANTOPRAZOLE SODIUM 40 MG VIAL IV PUSH SCH (08:46)
[2017-09-26] MEDS: SODIUM CHLORIDE 0.9% FLUSH 10 ML FLUSH IV FLUSH PRN (08:53)
[2017-09-26] MEDS: SODIUM CHLORIDE 0.9% FLUSH 10 ML FLUSH IV FLUSH SCH ×5 (08:53→20:11)
[2017-09-26] MEDS: DOCUSATE SODIUM 50 MG/SENNA 8.6 MG TAB PO SCH ×2 (08:54→20:12)
--- NOTE | 2017-09-26 08:57 | PD.CONS ---
HPI History of Present Illness This is a 82 year old male with hx subdural hygroma who was sent from his NH for abd pain. Per EMR he had been having pain for 5 days, was recently treated for UTI. GI has been consulted for heme positive stool. He initially denies any abd pain to me and then says he does have pain in the umbilical area and wants his pain meds. Per nursing staff he did have some dark stool over night. He was evaluated by our service on a previous admission in August and had EGD 08/29/17 with finding esophageal stricture s/p dilatation, ulcers. he had colonoscopy 08/2016 with findign sigmoid adenoma, lymphocytic colitis. he is currently being treated for hypotension. CT moderate stool, bilateral pleural effusions. Pt is poor and inconsistent historian. (Cecily Oh) [facility] Past Medical History Hospitalized here from August 25, 2017 to September 10, 2017. 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 fib with RVR Rhabdomyolysis Acute kidney injury secondary to salicylate poisoning/rhabdo GI bleed with status post EGD showing 2 ulcers. EGD revealing esophageal structure distally requiring biopsy and dilatation Gallbladder wall thickening without stones Chronic subdural hygroma Past Surgical History Reviewed on EMR (Cecily Oh) Coded Allergies: No Known Allergies (Verified Allergy, Unknown, 09/25/17) Family History Unknown Social History Unknown from patient. Per prior history, there is history of polysubstance abuse. However patient has been in [facility] (Cecily Oh) Review of Systems Gastrointestinal: COMPLAINS OF: Abdominal pain, DENIES: Nausea, Vomiting, Hematemesis otherwise noncontributory (Cecily Oh) GI Exam Vitals I&O Vital Signs Date Time Temp Pulse Resp B/P (MAP) Pulse Ox O2 Delivery O2 Flow Rate FiO2 09/26/17 08:34 115 20 89/49 (62) 96 Nasal Cannula 3.00 09/26/17 07:18 125 18 92/71 (78) 95 Nasal Cannula 2.00 09/26/17 06:00 98 18 104/62 (76) 95 Nasal Cannula 2.00 09/26/17 05:30 110 18 112/55 (74) 96 Nasal Cannula 2.00 09/26/17 05:15 124 18 96/77 (83) 95 Room Air 09/26/17 04:20 98.3 105 18 108/53 94 09/26/17 04:04 98.2 95 18 117/57 95 09/26/17 03:46 98.3 97 18 105/55 95 09/26/17 03:29 98.1 100 18 109/52 96 09/26/17 03:08 105 18 78/62 (67) 95 Room Air 09/26/17 02:37 94 18 86/47 (60) 95 Room Air 09/26/17 01:51 98.9 102 18 109/67 97 09/26/17 01:00 131 18 108/60 (76) 96 Room Air 09/26/17 00:30 126 18 97/79 (85) 97 Room Air 09/26/17 00:00 125 18 107/87 (94) 98 Room Air 09/25/17 23:30 136 18 105/61 (76) 97 Room Air 09/25/17 23:01 98.9 128 18 98/70 95 09/25/17 23:00 145 18 98/70 (79) 95 Room Air 09/25/17 22:45 75 18 93/67 (76) 97 Room Air 09/25/17 22:43 98.1 135 18 93/67 99 09/25/17 22:28 98.2 145 18 103/57 95 09/25/17 22:14 130 18 103/57 (72) 96 Room Air 09/25/17 21:35 130 99/57 09/25/17 21:30 97.6 130 20 99/57 (71) 97 Room Air 09/25/17 19:00 127 18 86/51 (63) 97 Room Air 09/25/17 17:43 121 18 118/55 (76) 95 Room Air 09/25/17 17:03 113 18 86/65 (72) 96 Room Air 09/25/17 16:36 113 20 104/58 (73) 97 Room Air 09/25/17 14:30 114 18 90/65 (73) 94 Room Air 09/25/17 13:30 120 17 90/55 (67) 94 Room Air 09/25/17 13:29 96 Nasal Cannula 2.00 09/25/17 12:17 98.7 98 18 158/80 (106) 99 I/O 09/25/17 09/25/17 09/25/17 09/26/17 09/26/17 09/26/17 07:00 15:00 23:00 07:00 15:00 23:00 Intake Total 135 ml 1150 ml Balance 135 ml 1150 ml Intake IV Total 135 ml 500 ml Packed Cells 400 ml Blood Product IV Normal Saline Flush 250 ml # Bowel Movements 1 1 Imaging Last Impressions Chest X-Ray 09/25/172008 Signed Impressions: Service Date/Time: Monday, September 25, 2017 20:17 - CONCLUSION: Right IJ catheter in good position. No evidence of pneumothorax. Rocael France MD Head CT 09/25/17 1234 Signed Impressions: Service Date/Time: Monday, September 25, 2017 13:56 - CONCLUSION: 1. Evolving left subdural hygroma which now measures 4 mm without midline shift. 2. Senescent changes with ischemic. Anterior white matter demyelination. 3. No acute abnormality or other significant interval change. Ric Gómez MD Scrotum Ultrasound 09/25/17 0000 Signed Impressions: Service Date/Time: Monday, September 25, 2017 18:02 - CONCLUSION: 1. Normal appearance the left hemiscrotum with a greater than 6 cm cystic area without increased flow. A left testicle is not identified. 2. The right testicle has a normal appearance and intact flow by color Doppler. Rocael France MD Abdomen/Pelvis CT 09/25/17 0000 Signed Impressions: Service Date/Time: Monday, September 25, 2017 14:04 - CONCLUSION: 1. Bilateral pleural effusions and bibasilar atelectasis. 2. Nonspecific periportal edema. No change compared to the prior exam. 3. Anasarca 4. Moderate stool throughout the colon with no evidence of obstruction. 5. No significant changes compared to the prior study. Pavel Alvarenga MD Laboratory Test 09/25/17 13:00 09/25/17 14:19 09/26/17 00:40 09/26/17 05:35 Urine Color YELLOW Urine Turbidity HAZY Urine pH 5.5 Urine Specific Morgan 1.023 Urine Protein 30 mg/dL Urine Glucose (UA) NEG mg/dL Urine Ketones 40 mg/dL Urine Occult Blood SMALL Urine Nitrite NEG Urine Bilirubin NEG Urine Urobilinogen 2.0 MG/DL Urine Leukocyte Esterase LARGE Urine RBC 8 /hpf Urine WBC 121 /hpf Urine WBC Clumps RARE Urine Bacteria OCC /hpf Urine Mucus MANY /lpf Microscopic Urinalysis Comment CULTURE INDICATED Blood Urea Nitrogen 11 MG/DL 14 MG/DL Creatinine 0.59 MG/DL 0.65 MG/DL Random Glucose 85 MG/DL 85 MG/DL Total Protein 6.0 GM/DL 5.6 GM/DL Albumin 2.6 GM/DL 2.2 GM/DL Calcium Level 8.0 MG/DL 7.5 MG/DL Magnesium Level 1.9 MG/DL 1.8 MG/DL Alkaline Phosphatase 98 U/L 84 U/L Aspartate Amino Transf (AST/SGOT) 27 U/L 24 U/L Alanine Aminotransferase (ALT/SGPT) 49 U/L 42 U/L Total Bilirubin 0.5 MG/DL 1.2 MG/DL Sodium Level 137 MEQ/L 138 MEQ/L Potassium Level 3.7 MEQ/L 3.5 MEQ/L Chloride Level 99 MEQ/L 104 MEQ/L Carbon Dioxide Level 25.1 MEQ/L 23.3 MEQ/L Anion Gap 13 MEQ/L 11 MEQ/L Estimat Glomerular Filtration Rate 131 ML/MIN 117 ML/MIN Lactic Acid Level 1.4 mmol/L 1.7 mmol/L 1.5 mmol/L Total Creatine Kinase 140 U/L 111 U/L Creatine Kinase MB 3.9 NG/ML Troponin I LESS THAN 0.02 NG/ML LESS THAN 0.02 NG/ML Lipase 61 U/L 39 U/L White Blood Count 7.1 TH/MM3 8.3 TH/MM3 Red Blood Count 2.61 MIL/MM3 3.13 MIL/MM3 Hemoglobin 8.1 GM/DL 9.1 GM/DL 9.9 GM/DL Hematocrit 24.1 % 27.0 % 28.6 % Mean Corpuscular Volume 92.4 FL 91.2 FL Mean Corpuscular Hemoglobin 31.2 PG 31.6 PG Mean Corpuscular Hemoglobin Concent 33.8 % 34.7 % Red Cell Distribution Width 15.9 % 15.1 % Platelet Count 168 TH/MM3 219 TH/MM3 Mean Platelet Volume 7.9 FL 7.6 FL Neutrophils (%) (Auto) 76.2 % 77.3 % Lymphocytes (%) (Auto) 9.6 % 8.1 % Monocytes (%) (Auto) 13.4 % 14.2 % Eosinophils (%) (Auto) 0.5 % 0.1 % Basophils (%) (Auto) 0.3 % 0.3 % Neutrophils # (Auto) 5.4 TH/MM3 6.4 TH/MM3 Lymphocytes # (Auto) 0.7 TH/MM3 0.7 TH/MM3 Monocytes # (Auto) 1.0 TH/MM3 1.2 TH/MM3 Eosinophils # (Auto) 0.0 TH/MM3 0.0 TH/MM3 Basophils # (Auto) 0.0 TH/MM3 0.0 TH/MM3 CBC Comment DIFF FINAL DIFF FINAL Differential Comment Prothrombin Time 13.5 SEC 13.2 SEC Prothromb Time International Ratio 1.3 RATIO 1.3 RATIO Activated Partial Thromboplast Time 29.4 SEC 30.3 SEC Fibrinogen 320 mg/dL Phosphorus Level 2.9 MG/DL Ammonia 21 MCMOL/L Triglycerides Level 66 MG/DL Cholesterol Level 77 MG/DL LDL Cholesterol 22 MG/DL HDL Cholesterol 42.1 MG/DL Cholesterol/HDL Ratio 1.82 RATIO Amylase Level 16 U/L Free Thyroxine 1.13 NG/DL Thyroid Stimulating Hormone 3rd Gen 6.950 uIU/ML Random Cortisol 41.1 MCG/DL Date/Time Source Procedure Growth Status 09/25/17 20:50 Stool Stool Stool Occult Blood (JANIE) Pending Ordered 09/25/17 13:00 Urine Clean Catch Urine Culture Pending Worksheet Physical Examination HEENT: normocephalic; atraumatic; no jaundice. CHEST: diminished CARDIAC: tachy ABDOMEN: Soft, nondistended, ubilical region tender to light palpation but not to deep pressure from stethoscope; no hepatosplenomegaly; bowel sounds are present in all four quadrants. EXTREMITIES: No clubbing, cyanosis, or edema. SKIN: Normal; no rash; no jaundice. SENIOR ELECTRICAL ESTIMATOR: difficult to assess, pt repeatedly asks for pain meds (Cecily Oh) Assessment and Plan Plan ASSESSMENT - anemia, heme pos stool - could be UGIB. dark stool noted by nursing staff. hs esohpageal lesions, ulcerative esophagitis per EGD in 2017. had EGD 08/29/17 found esohophageal strictures and ulcers, recent hx ASA OD. Pt refuses endoscopy. d/w pt's son Franklyn Mitchell [phone] and it is not clear who makes decisions- Franklyn says if his father is alert enough to refuse a procedure than he would not want to proceed and does not want to do anything to "prolong it." Son also tells me that a woman claiming to be pt's daughter has power of doll wig maker over finances but not healthcare. pt is poor historian. - ?constipation - moderate stool seen on CT, no obstruction PLAN - recommend daily bowel regimen. - no procedures at this time - monitor HH - notify GI of active bleeding - consider palliative care consult. - GI will sign off. Please reconsult if needed. pt seen by myself and Dr Abad and this note is on his behalf (Cecily Oh) Physician Comments Seen and examined, plan as above. Please notify us if patient is more agreeing for endocsopic evaluation. Thank you for the consult. (Phan Abad MD) Cecily Oh Sep 26, 2017 08:57 Phan Abad MD Sep 26, 2017 14:09
[2017-09-26] MEDS: ARTIFICIAL TEARS OPTH SOLN 15 ML BTL EACH EYE SCH ×3 (09:00→18:00)
[2017-09-26] MEDS: MULTIVITAMIN INJ 10 ML, THIAMINE INJ 100 MG, FOLIC ACID INJ 1 MG in SODIUM CHLORID 0.9%... IV SCH (10:34)
[2017-09-26] MEDS: CEFEPIME INJ 2,000 MG in SODIUM CHLORIDE 0.9% INJ 100 ML IV SCH ×2 (10:34→22:00)
[2017-09-26] MEDS: DILTIAZEM INJ 125 MG in SODIUM CHLORIDE 0.9% INJ 100 ML IV PRN (10:38)
--- NOTE | 2017-09-26 11:18 | HHI.CCPN ---
Subjective Remarks/Hospital Course This is a 82-year-old male. He is DNR verified with Franklyn Mitchell [phone]. He is a resident of a long term. He presented to [facility] from his long term with a 5 day history of abdominal pain. Documented previous diagnosis of Pseudomonas urinary tract infection treated with ciprofloxacin. Noted patient was previously admitted here early August with a left subdural hygroma, spontaneous pneumothorax requiring chest tube placement and GI bleed requiring upper endoscopy. Was seen by multiple consultants and was discharged to an [facility] on September 10. Baseline laboratories revealed normal lactate. Normal white blood cell counts with a normocytic anemia of 8. Albumin is low. Creatinine is 1.3. CT abdomen/ pelvis revealed bilateral pleural effusions, constipation/stool in the rectal vault. No other acute findings. Due to the fact patient is complaining of right inguinal pain and a scrotal ultrasound performed which revealed a left cystic mass. Right testicle within normal limits. Patient became more hypotensive in the ED. Essentially this place and patient was started on broad-spectrum antibiotics including vancomycin, cefepime, levofloxacin and metronidazole. EF is cholo will start a regimen of diltiazem and Marcelino-Synephrine for rate control. CVP will be ordered. Transfuse as clinically indicated. We will see in consultation. 03: Normotensive. RVR persists. Switch to iv digoxin, transfer to floor status. Objective Vital Signs Date Time Temp Pulse Resp B/P (MAP) Pulse Ox O2 Delivery O2 Flow Rate FiO2 09/26/17 10:53 98.4 09/26/17 10:51 101 20 97 Nasal Cannula 3.00 Intake and Output 09/26/17 09/26/17 09/27/17 08:00 16:00 00:00 Intake Total 900 ml Output Total 450 ml Balance 900 ml -450 ml Result Diagram: 09/26/17 0535 09/26/17 0535 Other Results Microbiology Date/Time Source Procedure Growth Status 09/25/17 19:10 Stool Stool Stool Occult Blood (JANIE) - Final HEMOCCULT POSITIVE Complete Imaging Last Impressions Head CT 09/25/17 0324 Signed Impressions: Service Date/Time: Monday, September 25, 2017 13:56 - CONCLUSION: 1. Evolving left subdural hygroma which now measures 4 mm without midline shift. 2. Senescent changes with ischemic. Anterior white matter demyelination. 3. No acute abnormality or other significant interval change. Ric Gómez MD Chest X-Ray 09/25/17 1234 Signed Impressions: Service Date/Time: Monday, September 25, 2017 13:11 - CONCLUSION: Mild improvement in the bibasilar infiltrates compared to the prior study. Pavel Alvarenga MD Scrotum Ultrasound 09/25/17 0000 Signed Impressions: Service Date/Time: Monday, September 25, 2017 18:02 - CONCLUSION: 1. Normal appearance the left hemiscrotum with a greater than 6 cm cystic area without increased flow. A left testicle is not identified. 2. The right testicle has a normal appearance and intact flow by color Doppler. Rocael France MD Abdomen/Pelvis CT 09/25/17 0000 Signed Impressions: Service Date/Time: Monday, September 25, 2017 14:04 - CONCLUSION: 1. Bilateral pleural effusions and bibasilar atelectasis. 2. Nonspecific periportal edema. No change compared to the prior exam. 3. Anasarca 4. Moderate stool throughout the colon with no evidence of obstruction. 5. No significant changes compared to the prior study. Pavel Alvarenga MD Objective Remarks GENERAL: 82-year-old male, agitated, loudly verbal. SKIN: Warm and dry. Multiple upper extremity ecchymoses HEAD: Atraumatic. Normocephalic. EYES: Pupils equal and round. No conjunctival icterus. No injection or drainage. ENT: No nasal bleeding or discharge. Mucous membranes pink and moist. NECK: Trachea midline. Airway widely patent. CARDIOVASCULAR: Tachycardic, IR. S1, S2 predose repair without murmur RESPIRATORY: Good bilateral air entry. Clear. No crackles appreciated GASTROINTESTINAL: Abdomen soft, nondistended. Tender to palpation right inguinal region. Positive guarding. No rigidity. Active bowel sounds MUSCULOSKELETAL: Extremities without clubbing, cyanosis, or edema. Well perfused. NEUROLOGICAL: Awake and alert. No obvious cranial nerve deficits. Motor grossly within normal limits. Five out of 5 muscle strength in the arms and legs. Loud clear speech. A/P Assessment and Plan Neuro/Psych: Left subdural hygroma without shift Depression disorder NOS Pain management CT brain 09/25 revealed a left subdural hygroma 4 mm in size without shift with periventricular white matter changes Patient will be on morphine 2-4 mg IV every 2 hours as needed pain 1 through 10 Acetaminophen 600 mg p.o. every 6 hours as needed fever Continue quetiapine 50 mg p.o. twice daily Continue trazodone 50 mg p.o. 3 times daily Patient is on hydrocodone/acetaminophen 7.5/325 as needed at [facility] CV: Atrial fibrillation with rapid ventricular response History of hypertension Dyslipidemia Shock -sepsis versus hemorrhagic shock Start on diltiazem drip titrate to keep heart rate less than 100 with phenylephrine drip to maintain mean arterial pressure greater than equal to 65 Holding lovastatin 20 mill grams p.o. daily. Resume when clinically indicated Holding amlodipine 5 mg p.o. daily Echocardiogram 09/09 revealed EF around 50-55 %. LVH. Mild MR, AR and TR Troponin 0 0.02 Convert to digoxin iv. Resp: Bilateral pleural effusions Tobaccoism Chest x-ray revealed improving pulmonary congestion. Nasal cannula to maintain saturations greater than equal to 92% Incentive spirometer while awake Chest x-ray in a.m. 09/26 Albuterol/ipratropium aerosols every 6 hours as needed aerosols every 2 hours as needed dyspnea Self-education tobacco cessation booklet has been provided GI: Abdominal pain NOS History of lymphocytic colitis History of erosive esophagitis Gastroesophageal reflux disease History of colonic polyps Hypoalbuminemia Recent endoscopy 09/09 revealed above findings. Currently n.p.o. Pantoprazole for GI prophylaxis Docusate sodium/senna 1 tablet twice daily for bowel regimen CT abdomen/pelvis revealed bilateral pleural effusions. Constipation. No acute findings. Lactate 1.4. Check amylase and lipase repeat LFTs in a.m. Low threshold for repeat imaging : BPH Holding tamsulosin 0.4 mg daily and doxazosin 4 mg daily Endo: Sliding scale insulin with Accu-Cheks to maintain euglycemia Novulin R before meals at bedtime Renal: Creatinine currently 1.3 Currently on normal saline at 84 cc an hour 2 L normal saline in ED Monitor urine output Accurate I's and O's Heme: Normocytic anemia Monitor CBC daily. Follow trends Typed and screened Hemoglobin every 6 hours. Transfuse as clinically indicated ID: History of Pseudomonas UTI Blood cultures 2, UA ordered Patient is currently in vancomycin 1 1 g, cefepime 2 g IV every 12 hours levofloxacin 750 mg IV daily and metronidazole 500 mg every 6 hours FEN: Replace electrolytes as clinically indicated MSK: PT evaluate and treat Access -Right IJ CVL placed 3/6 day #2 Prophylaxis -GI -pantoprazole -DVT -SCD/pharmacological prophylaxis culture indicated with possible lower GI bleed and subdural hygroma Overall impression: Patient with multiple complaints largely related to pain, but he falls asleep between episodes of verbalizing. Stable for floor transfer. Aníbal Cai MD Sep 26, 2017 11:18
[2017-09-26] MEDS: MORPHINE SULFATE 4 MG/ML INJ IV PUSH PRN ×4 (11:29→23:42)
[2017-09-26] MEDS ORDERED: ZIPRASIDONE MESYLATE 20 MG VIAL IM PRN (11:30)
[2017-09-26] MEDS ORDERED: DIGOXIN 0.5 MG/2 ML VIAL IV PUSH ONE (11:30)
--- NOTE | 2017-09-26 12:47 | MB ---
cc: Joe Cote DO DATE OF CONSULT: 09/26/2017 Mr. Mitchell is a pleasant 82-year-old male admitted from the skilled nursing who is complaining of abdominal pain. He is somewhat of a poor historian and some of this history will be taken from the chart. The patient has a history of BPH with obstruction and was recently diagnosed with a pseudomonas UTI and has been treated for that with ciprofloxacin. A Ansari catheter is in place and he does have some exudate draining around the Ansari catheter at present on physical exam. He was complaining of abdominal pain when I saw him in the left lower quadrant primarily. There are no reports of any nausea or vomiting. Scrotal ultrasound was performed in the emergency room last night which showed a normal appearance of the left hemiscrotum with a 6 cm cystic area without evidence of any increased flow. The left testicle was not identified. The right testicle is normal in appearance and intact by color flow Doppler. Presently the patient is not complaining of any scrotal pain. While in the emergency room, he was also noted to develop rapid AFib and was started on a Cardizem drip. He presently denies any chest pain. ALLERGIES: HE HAS NO KNOWN DRUG ALLERGIES. MEDICAL HISTORY: Includes chronic atrial fibrillation, BPH, hypertension, dyslipidemia, GERD, colitis, heart disease, erosive gastritis. PAST SURGICAL HISTORY: Notable for right shoulder surgery. MEDICATIONS: For medications, please refer to the chart. FAMILY HISTORY: Negative for heart disease. Son with a history of bladder cancer as noted. PAST SOCIAL HISTORY: Noted for a 1-1/2 hizy-xad-hcb smoker, 2-5 beers in the past, no IV drug use. REVIEW OF SYSTEMS: Presently denies chest pain, but does note abdominal pain. Denies vision problems at present. Does have some hearing deficit. Denies bleeding disorders. The remaining review of systems were reviewed and were negative. PHYSICAL EXAM: VITAL SIGNS: Temperature 98.3, heart rate is 112, respiratory rate 20, 89/62 is his blood pressure. GENERAL: He is a thin 82-year-old male in no acute distress. HEENT: Normocephalic/atraumatic. Pupils equal, round, regular and react to light. Extraocular movements intact. NECK: Supple. HEART: Rate is sinus tach and irregular. LUNGS: Breath sounds are bilaterally. ABDOMEN: Soft. There is some right lower quadrant tenderness noted. : Normal phallus. Ansari catheter in with some purulent drainage around the catheter. Testicles, there is some right-sided tenderness on exam possibly secondary to epididymitis, but there does appear to be a structure within the left side of the testicle. EXTREMITIES: Show no evidence of cyanosis, clubbing or edema. NEUROLOGIC: Cranial nerves II-XII are grossly intact. LABORATORY DATA: White count 8.3, hemoglobin 9.9, hematocrit 28.6, platelet count 219. Sodium 138, potassium 3.5, chloride 104, CO2 23, BUN 14, creatinine 0.65, glucose 117. PT is 13.2, INR 1.3, PTT is 30.3. Urinalysis shows large leukocyte esterase, 121 white cells with rare clumps and 8 red blood cells are noted. IMAGING STUDIES: CAT scan of the abdomen and pelvis shows bilateral pleural effusions, bilateral atelectasis. Moderate stool throughout the colon. No evidence of obstruction. No hydronephrosis is noted. There is no retroperitoneal adenopathy. Bladder, there is a Ansari in the bladder with the bladder decompressed. Scrotal ultrasound again shows normal appearance of the left hemiscrotum with a 6 cm cystic area without increased flow and the left testicle was not identified. The right testicle appears normal with intact flow by color Doppler. ASSESSMENT: This is an 82-year-old male admitted with abdominal pain found to be in rapid atrial fibrillation on a Cardizem drip with a cystic area within the left hemiscrotum. No evidence on physical exam of torsion or hematoma. Possible right sided epididymitis on physical exam is noted. Patient also with a history of pseudomonas urinary tract infection. RECOMMENDATIONS: 1. Maintain Ansari catheter. 2. Check urine culture results. 3. Continue IV antibiotics. 4. We will add Flomax 0.4 mg by mouth at bedtime to help with voiding. We will follow with you. Thank you for the consult and allowing me to participate in the care of this patient. DO DESTINY [place]/DL/rr , 10:55 AM , 11:20 AM
--- NOTE | 2017-09-26 14:48 | EKG ---
Date Performed: 09/25/2017 Time Performed: 13:05:16 PTAGE: 82 years EKG: ATRIAL FIBRILLATION WITH RAPID VENTRICULAR RESPONSE WITH ABERRANT CONDUCTION OR VENTRICULAR PREMATURE COMPLEXES LEFT AXIS DEVIATION LOW QRS VOLTAGE IN EXTREMITY LEADS ANTEROSEPTAL MYOCARDIAL I NFARCTION ABNORMAL ECG PREVIOUS TRACING : 08/25/2017 05.10 DOCTOR: Robb Peterson Interpretating Date/Time 09/26/2017 14:47:55
[2017-09-26 15:52] LABS: HEMATOCRIT 31.1 % (39.0-51.0); HEMOGLOBIN 11.1 GM/DL (13.0-17.0)
[2017-09-26 16:22] LABS: HEMOGLOBIN A1C 5.4 % (4.3-6.0)
--- NOTE | 2017-09-26 16:41 | PD.CONS ---
Consult Service Palliative Care Consult Requested By Dr. Cai. Primary Care Physician Rafy Cagle M.D. Reason for Consultation a. To assist with evaluation and management of symptoms including: Abdominal pain, debility, agitation. b. To assist medical decision maker(s) with: better understanding of current medical conditions; weighing benefits/burdens of medical treatment options; making medical treatment decisions. . HPI History of Present Illness Mr. Mitchell is an 82-year-old male with a medical history significant for chronic subdural hygroma, hypertension, hyperlipidemia, BPH, toxic encephalopathy, A. fib, prior GI bleed and kidney failure. Patient presented to ED via EMS on 09/25/17 for evaluation of abdominal pain and not eating for the prior [address] pelvis [address] revealing bilateral pleural effusions and bibasilar atelectasis, anasarca and moderate stool throughout the colon without evidence of obstruction. No acute process. Head CT revealing evolving left subdural hygroma which now measures 4 mm without midline shift. No acute process identified. Clinical course complicated by hypotension while in the ED. Patient was transfused 2 packed red blood cells for hemoglobin of 8.1. Patient was started on broad-spectrum antibiotic. Box Sealing Machine Operator was consulted and the central line was placed. GI, Dr. Abad consulted on 09/26/17 for evaluation of anemia, heme-positive stool. Dark stool noted overnight by nursing staff. Patient with a history of esophageal lesions, ulcerative esophagitis per EGD 2016. Repeat EGD on August 2017 found esophageal strictures and ulcers. Patient with recent history of aspirin use. Patient declined GI workup, refused endoscopy. Son Franklyn who is healthcare surrogate in agreement with this. Plan to continue monitoring H&H and notify GI of any active bleeding. Urology, Dr. Cote consulted. Patient with history of BPH with obstruction, recently diagnosed with Pseudomonas UTI and was treated with Cipro. Scrotum ultrasound 09/25/17 revealing left hemiscrotum with a greater than 6 cm cystic area, left testicle not identified. Ansari catheter was placed, continuation of IV antibiotics recommended by urology. Palliative care recommended for further clarification so goals of care. Patient known to palliative care services from prior admission from 08/25/17 to . Patient with acute hypoxemic and hypercarbic respiratory failure, he was intubated 08/25 and medically extubated 08/26. Questionable COPD. Patient with right-sided pneumothorax status post chest tube placement. Clinical course complicated by acute kidney injury and acute rhabdomyolysis. Underwent emergency dialysis on 08/25/17. Patient with reported GI bleed, anemia secondary to blood loss. EGD results as stated above. Patient was placed on Protonix drip which was changed to oral upon transfusion. He also required transfusion of packed red blood cells. Hospice was contemplated by patient and family; however, family elected rehabilitation at [facility]. Patient was discharged on 09/10/17. Patient with multiple ED visits during the past year mostly secondary to abdominal pain and diarrhea. Patient seen in his room. In bed in no acute distress. Alert to self, place and situation. verbal. Patient experiencing visual hallucinations, reaching to the air trying to grab objects. Noticed that patient was biting his tongue, blood noted in tongue. Nursing staff and Dr. Syed. notified. Patient endorsing abdominal pain, unable to elaborate on details. Denied shortness of breath, nausea vomiting or any other discomfort. Patient afebrile, A. fib with RVR, heart rate in the 110-120s. Stable hemodynamically, tolerating O2 via nasal cannula 3 L. Most recent H&H 11.1. Telephone call to [facility]. Obtained copies of advance directives. Telephone conversation with patient's son Joey Mitchell/[facility]. Medical update provided. Reviewed events leading to this hospitalization, clinical course and current medical management. Son supports conservative management short of no code. He is wishing to allow 24-48 hrs. for medical improvement. She had concerns of patient multiple medical issues, acute events to include UTI, GI bleed. Reviewed that patient is a very high risk for further complications, continued decline and . Hospice philosophy and benefits reviewed, previously introduced during prior admission. Son receptive to palliative care follow-up tomorrow. Case discussed with Dr. Syed. . Function/Cognitive Trajectory Patient with progressive decline. Recent acute hospitalization, discharged on to rehabilitation facility. Patient ambulates with rolling walker. . Review of Systems ROS Limitations: Poor Historian Constitutional: COMPLAINS OF: Pain, DENIES: Fever, Night Sweats Endocrine: DENIES: Heat/cold intolerance Eyes: DENIES: Eye inflammation Ears, nose, mouth, throat: COMPLAINS OF: Hearing loss, DENIES: Nasal discharge , Oral lesions, Running Nose, Epistaxis Respiratory: COMPLAINS OF: Shortness of breath, DENIES: Cough, Wheezing Cardiovascular: COMPLAINS OF: Dyspnea on Exertion, Lower Extremity Edema, DENIES: Chest pain Gastrointestinal: COMPLAINS OF: Abdominal pain, Black stools, DENIES: Bloody stools, Nausea, Vomiting, Vomiting blood Genitourinary: DENIES: Hematuria Musculoskeletal: COMPLAINS OF: Stiffness, Decreased range of motion Integumentary: DENIES: Pruritus, Rash Hematologic/Lymphatics: COMPLAINS OF: Bruising Immunologic/Allergic: DENIES: Eczema Neurologic: COMPLAINS OF: Poor Balance, DENIES: Localized weakness, Seizures, Tremor Psychiatric: COMPLAINS OF: Anxiety, Hallucinations Past Family Social History Coded Allergies: No Known Allergies (Verified Allergy, Unknown, 09/25/17) Past Medical History Chronic atrial fibrillation BPH Hypertension Dyslipidemia Gastroesophageal reflux disease Lymphocytic colitis History of colonic polyps Coronary artery disease Tobacco abuse EtOH use Erosive esophagitis History of GI bleed . Past Surgical History Right shoulder replacement. Colonoscopy with biopsy on August 2016 EGD with biopsy on August 2016 . Reported Medications Onida (Hydrocodone-Acetaminophen) 7.5-325 mg Tab 1 Tab PO Q6H PRN Cardizem (Diltiazem HCl) 60 Mg Tab 60 Mg PO Q6HR Metoprolol Tartrate 25 Mg Tab 25 Mg PO Q12HR Nitrostat SL (Nitroglycerin) 0.4 Mg Subl 0.4 Mg SL UNSCH PRN Bentyl (Dicyclomine HCl) 10 Mg Cap 10 Mg PO TID PRN Sucralfate Liq (Sucralfate) 1 Gm/10 Ml Krystle 1 Gm PO ACHS 30 Days Norvasc (Amlodipine Besylate) 5 Mg Tab 5 Mg PO DAILY 30 Days Imodium Multi-Symptom Rel Cplt (Loperamide HCl/Simethicone) 2 Mg-125 Mg Tablet 4 Mg PO Milk of Magnesia Liq (Magnesium Hydroxide) 400 Mg/5 Ml Susp 30 Ml PO Q6HR PRN Tylenol (Acetaminophen) 325 Mg Tab 650 Mg PO Q4H PRN Cipro (Ciprofloxacin HCl) 500 Mg Tab 500 Mg PO BID Seroquel (Quetiapine Fumarate) 50 Mg Tab 50 Mg PO BID Doxazosin (Doxazosin Mesylate) 4 Mg Tab 4 Mg PO DAILY Trazodone (Trazodone HCl) 50 Mg Tab 50 Mg PO TID Omeprazole 20 Mg Tab 20 Mg PO DAILY Tamsulosin (Tamsulosin HCl) 0.4 Mg Cap 0.4 Mg PO HS Lovastatin 20 Mg Tab 20 Mg PO DAILY . Current Medications Medications (Trade) Dose Ordered Sig/Ortega Route Start Time Stop Time Status Last Admin (NS Flush) 2 ml UNSCH PRN IV FLUSH 09/25/17 15:45 (NS Flush) 2 ml BID IV FLUSH 09/25/17 21:00 09/26/17 08:53 (Narcan Inj) 0.4 mg UNSCH PRN IV PUSH 09/25/17 15:45 Sodium Chloride 1,000 ml @ 100 mls/hr Q10H IV 09/25/17 19:00 Ciprofloxacin/ Dextrose 200 ml @ 200 mls/hr Q12H IV 09/25/17 19:00 Future Hold Pantoprazole Sodium 80 mg/ Sodium Chloride 100 ml @ 10 mls/hr Q10H IV 09/25/17 20:25 09/26/17 06:13 (Bentyl) 10 mg TID PRN PO 09/25/17 20:15 (Carafate Liq) 1 gm ACHS PO 09/25/17 21:00 (Desyrel) 50 mg TID PO 09/26/17 09:00 09/26/17 08:45 (SEROquel) 50 mg BID PO 09/25/17 21:00 09/26/17 08:45 (NS Flush) DAILY IV FLUSH 09/26/17 09:00 (NS Flush) UNSCH PRN IV FLUSH 09/25/17 20:15 09/26/17 08:53 (Brethine Inj) 1 mg UNSCH PRN SQ 09/25/17 20:15 Cefepime HCl 2000 mg/Sodium Chloride 100 ml @ 200 mls/hr Q12H IV 09/25/17 22:00 09/26/17 10:34 Metronidazole 100 ml @ 100 mls/hr Q6H IV 09/25/17 21:00 09/26/17 08:50 (NS Flush) 2 ml UNSCH PRN IV FLUSH 09/25/17 20:30 (NS Flush) 2 ml BID IV FLUSH 09/25/17 21:00 09/26/17 08:53 (Tylenol) 650 mg Q6H PRN PO 09/25/17 20:30 (Morphine Inj) 2 mg Q2H PRN IV PUSH 09/25/17 20:30 09/26/17 11:29 (Protonix Inj) 40 mg DAILY IV PUSH 09/26/17 09:00 09/26/17 08:46 (Tears Naturale Opth Soln) 1 drop TID EACH EYE 09/26/17 09:00 (Zofran Inj) 4 mg Q6H PRN IV PUSH 09/25/17 20:30 (Duoneb Neb) 1 ampule Q6HR NEB INH 09/25/17 22:00 09/26/17 04:37 (Albuterol Neb) 2.5 mg Q2HR NEB PRN INH 09/25/17 20:30 Miscellaneous Information 1 Q361D XX 09/25/17 20:30 (Chlorhexidine 2% Cloth) 3 pack Taper DAILY@04 TOP 09/26/17 04:00 09/22/18 03:59 (Chlorhexidine 2% Cloth) 3 pack UNSCH PRN TOP 09/25/17 20:30 (Octavia-Colace) 1 tab BID PO 09/25/17 21:00 09/25/17 21:54 (Milk Of Magnesia Liq) 30 ml Q12H PRN PO 09/25/17 20:30 (Senokot) 17.2 mg Q12H PRN PO 09/25/17 20:30 (Dulcolax Supp) 10 mg DAILY PRN RECTAL 09/25/17 20:30 (Lactulose Liq) 30 ml DAILY PRN PO 09/25/17 20:30 (D50w (Vial) Inj) 50 ml UNSCH PRN IV PUSH 09/25/17 20:30 (Glucagon Inj) 1 mg UNSCH PRN OTHER 09/25/17 20:30 (NovoLIN R SUPPLEMENTAL SCALE) 1 ACHS SLIDING SCALE SQ 09/25/17 21:00 Levofloxacin/ Dextrose 150 ml @ 100 mls/hr Q24H IV 09/25/17 23:00 09/26/17 00:09 Multivitamins 10 ml/Thiamine HCl 100 mg/Folic Acid 1 mg/Sodium Chloride 511.2 ml @ 125 mls/hr DAILY IV 09/26/17 09:00 09/26/17 10:34 (Morphine Inj) 4 mg Q2H PRN IV PUSH 09/26/17 11:30 (Geodon Inj) 20 mg Q12H PRN IM 09/26/17 11:30 09/26/17 12:32 (Lanoxin Inj) 0.25 mg DAILY IV PUSH 09/27/17 09:00 Family History Son with bladder cancer. . Substance Use Tobacco: 1+ pack per day for most of his adult life Alcohol: 2-5 beers daily. Prescription med abuse: None reported. Illicits: None reported. . Psychosocial History Patient originally from [place]. Moved to [place] about 50 years ago. 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 Patient has been 3 times and . He reports that he has 3 sons. . Spiritual/Cultural Factors Lutheran isabel. . Living Will: Copy in medical record Health Care Surrogate: Copy in medical record Durable Power of Labor Contract Analyst: Copy in medical record Date completed: 10/18/2007. . Health Care Surrogate(s): Patient elected son Joey Mitchell as healthcare surrogate decision maker. No alternate surrogate. . Documented care wishes: Living will with standard verbiage as it pertains to life-prolonging procedures/ measures. . Today's verbally stated goals: No code. DNR/DNI. Supportive management. . Ethical and Legal Issues No ethical legal issues identified. . Physical Exam Vital Signs Date Time Temp Pulse Resp B/P (MAP) Pulse Ox O2 Delivery O2 Flow Rate FiO2 09/26/17 14:50 09/26/17 12:38 119 20 103/62 (76) 97 Nasal Cannula 3.00 09/26/17 11:56 20 09/26/17 10:53 98.4 09/26/17 10:51 101 20 111/57 (75) 97 Nasal Cannula 3.00 09/26/17 10:38 112 89/62 09/26/17 10:28 100 Nasal Cannula 3.00 09/26/17 10:00 119 20 177/58 (97) 98 Nasal Cannula 3.00 09/26/17 08:34 115 20 89/49 (62) 96 Nasal Cannula 3.00 09/26/17 07:18 125 18 92/71 (78) 95 Nasal Cannula 2.00 09/26/17 06:00 98 18 104/62 (76) 95 Nasal Cannula 2.00 09/26/17 05:30 110 18 112/55 (74) 96 Nasal Cannula 2.00 09/26/17 05:15 124 18 96/77 (83) 95 Room Air 09/26/17 04:20 98.3 105 18 108/53 94 09/26/17 04:04 98.2 95 18 117/57 95 09/26/17 03:46 98.3 97 18 105/55 95 09/26/17 03:29 98.1 100 18 109/52 96 09/26/17 03:08 105 18 78/62 (67) 95 Room Air 09/26/17 02:37 94 18 86/47 (60) 95 Room Air 09/26/17 01:51 98.9 102 18 109/67 97 09/26/17 01:00 131 18 108/60 (76) 96 Room Air 09/26/17 00:30 126 18 97/79 (85) 97 Room Air 09/26/17 00:00 125 18 107/87 (94) 98 Room Air 09/25/17 23:30 136 18 105/61 (76) 97 Room Air 09/25/17 23:01 98.9 128 18 98/70 95 09/25/17 23:00 145 18 98/70 (79) 95 Room Air 09/25/17 22:45 75 18 93/67 (76) 97 Room Air 09/25/17 22:43 98.1 135 18 93/67 99 09/25/17 22:28 98.2 145 18 103/57 95 09/25/17 22:14 130 18 103/57 (72) 96 Room Air 09/25/17 21:35 130 99/57 09/25/17 21:30 97.6 130 20 99/57 (71) 97 Room Air 09/25/17 19:00 127 18 86/51 (63) 97 Room Air 09/25/17 17:43 121 18 118/55 (76) 95 Room Air 09/25/17 17:03 113 18 86/65 (72) 96 Room Air 09/25/17 16:36 113 20 104/58 (73) 97 Room Air 09/26/17 09/27/17 19:00 07:00 Intake Total 210 ml Output Total 450 ml Balance -240 ml Intake IV Total 210 ml Output Urine Total 450 ml Exam CONSTITUTIONAL/GENERAL: This is an adequately nourished patient, in no apparent distress. TUBES/LINES/DRAINS: Nasal cannula, PIV. SKIN: No jaundice, rashes. Large areas of ecchymoses on upper extremities. Skin temperature appropriate. Not diaphoretic. HEAD: Atraumatic. Normocephalic. EYES: Pupils equal and round and reactive. Extraocular motions intact. No scleral icterus. No injection or drainage. ENT: Hearing grossly normal. Nose without bleeding or purulent drainage. Tongue with signs of trauma, blood. NECK: Trachea midline. Supple, nontender. CARDIOVASCULAR: irregular rate and rhythm. Peripheral pulses symmetric. RESPIRATORY/CHEST: Symmetric, unlabored respirations. Clear, diminished to auscultation. GASTROINTESTINAL: Abdomen soft, tender to palpation. Guarded. Bowel sounds present. GENITOURINARY: Without palpable bladder distension. Ansari catheter in place. MUSCULOSKELETAL: Extremities without clubbing, cyanosis. No mottling or clubbing. Bilateral pedal edema. NEUROLOGICAL: Awake and alert x self, place and situation. Follows commands. Moves all extremities. PSYCHIATRIC: Visual hallucinations during my visit. . Diagnostic Tests Laboratory Laboratory Tests Test 09/25/17 13:00 09/25/17 14:19 09/26/17 00:40 09/26/17 05:35 Urine Color YELLOW (YELLW/STRAW) Urine Turbidity HAZY (CLEAR) Urine pH 5.5 (5.0-8.5) Urine Specific [place] 1.023 (1.002-1.035) Urine Protein 30 mg/dL (NEG-TRACE) Urine Glucose (UA) NEG mg/dL (NEG) Urine Ketones 40 mg/dL (NEG) Urine Occult Blood SMALL (NEG) Urine Nitrite NEG (NEG) Urine Bilirubin NEG (NEG) Urine Urobilinogen 2.0 MG/DL (LESS THAN Urine Leukocyte Esterase LARGE (NEG) Urine RBC 8 /hpf (0-3) Urine WBC 121 /hpf (0-5) Urine WBC Clumps RARE (NONE) Urine Bacteria OCC /hpf (NONE) Urine Mucus MANY /lpf (OCC) Microscopic Urinalysis Comment CULTURE INDICATED Blood Urea Nitrogen 11 MG/DL (7-18) 14 MG/DL (7-18) Creatinine 0.59 MG/DL (0.60-1.30) 0.65 MG/DL (0.60-1.30) Random Glucose 85 MG/DL (74-106) 85 MG/DL (74-106) Total Protein 6.0 GM/DL (6.4-8.2) 5.6 GM/DL (6.4-8.2) Albumin 2.6 GM/DL (3.4-5.0) 2.2 GM/DL (3.4-5.0) Calcium Level 8.0 MG/DL (8.5-10.1) 7.5 MG/DL (8.5-10.1) Magnesium Level 1.9 MG/DL (1.5-2.5) 1.8 MG/DL (1.5-2.5) Alkaline Phosphatase 98 U/L (45-117) 84 U/L (45-117) Aspartate Amino Transf (AST/SGOT) 27 U/L (15-37) 24 U/L (15-37) Alanine Aminotransferase (ALT/SGPT) 49 U/L (12-78) 42 U/L (12-78) Total Bilirubin 0.5 MG/DL (0.2-1.0) 1.2 MG/DL (0.2-1.0) Sodium Level 137 MEQ/L (136-145) 138 MEQ/L (136-145) Potassium Level 3.7 MEQ/L (3.5-5.1) 3.5 MEQ/L (3.5-5.1) Chloride Level 99 MEQ/L (98-107) 104 MEQ/L (98-107) Carbon Dioxide Level 25.1 MEQ/L (21.0-32.0) 23.3 MEQ/L (21.0-32.0) Anion Gap 13 MEQ/L (5-15) 11 MEQ/L (5-15) Estimat Glomerular Filtration Rate 131 ML/MIN (>89) 117 ML/MIN (>89) Lactic Acid Level 1.4 mmol/L (0.4-2.0) 1.7 mmol/L (0.4-2.0) 1.5 mmol/L (0.4-2.0) Total Creatine Kinase 140 U/L (39-308) 111 U/L (39-308) Creatine Kinase MB 3.9 NG/ML (0.5-3.6) Troponin I LESS THAN 0.02 NG/ML LESS THAN 0.02 NG/ML Lipase 61 U/L (73-393) 39 U/L (73-393) White Blood Count 7.1 TH/MM3 (4.0-11.0) 8.3 TH/MM3 (4.0-11.0) Red Blood Count 2.61 MIL/MM3 (4.50-5.90) 3.13 MIL/MM3 (4.50-5.90) Hemoglobin 8.1 GM/DL (13.0-17.0) 9.1 GM/DL (13.0-17.0) 9.9 GM/DL (13.0-17.0) Hematocrit 24.1 % (39.0-51.0) 27.0 % (39.0-51.0) 28.6 % (39.0-51.0) Mean Corpuscular Volume 92.4 FL (80.0-100.0) 91.2 FL (80.0-100.0) Mean Corpuscular Hemoglobin 31.2 PG (27.0-34.0) 31.6 PG (27.0-34.0) Mean Corpuscular Hemoglobin Concent 33.8 % (32.0-36.0) 34.7 % (32.0-36.0) Red Cell Distribution Width 15.9 % (11.6-17.2) 15.1 % (11.6-17.2) Platelet Count 168 TH/MM3 (150-450) 219 TH/MM3 (150-450) Mean Platelet Volume 7.9 FL (7.0-11.0) 7.6 FL (7.0-11.0) Neutrophils (%) (Auto) 76.2 % (16.0-70.0) 77.3 % (16.0-70.0) Lymphocytes (%) (Auto) 9.6 % (9.0-44.0) 8.1 % (9.0-44.0) Monocytes (%) (Auto) 13.4 % (0.0-8.0) 14.2 % (0.0-8.0) Eosinophils (%) (Auto) 0.5 % (0.0-4.0) 0.1 % (0.0-4.0) Basophils (%) (Auto) 0.3 % (0.0-2.0) 0.3 % (0.0-2.0) Neutrophils # (Auto) 5.4 TH/MM3 (1.8-7.7) 6.4 TH/MM3 (1.8-7.7) Lymphocytes # (Auto) 0.7 TH/MM3 (1.0-4.8) 0.7 TH/MM3 (1.0-4.8) Monocytes # (Auto) 1.0 TH/MM3 (0-0.9) 1.2 TH/MM3 (0-0.9) Eosinophils # (Auto) 0.0 TH/MM3 (0-0.4) 0.0 TH/MM3 (0-0.4) Basophils # (Auto) 0.0 TH/MM3 (0-0.2) 0.0 TH/MM3 (0-0.2) CBC Comment DIFF FINAL DIFF FINAL Differential Comment Prothrombin Time 13.5 SEC (9.8-11.6) 13.2 SEC (9.8-11.6) Prothromb Time International Ratio 1.3 RATIO 1.3 RATIO Activated Partial Thromboplast Time 29.4 SEC (24.3-30.1) 30.3 SEC (24.3-30.1) Fibrinogen 320 mg/dL (227-377) Phosphorus Level 2.9 MG/DL (2.5-4.9) Ammonia 21 MCMOL/L (11-32) Triglycerides Level 66 MG/DL (42-150) Cholesterol Level 77 MG/DL (120-200) LDL Cholesterol 22 MG/DL (0-99) HDL Cholesterol 42.1 MG/DL (40.0-60.0) Cholesterol/HDL Ratio 1.82 RATIO Amylase Level 16 U/L (25-115) Free Thyroxine 1.13 NG/DL (0.76-1.46) Thyroid Stimulating Hormone 3rd Gen 6.950 uIU/ML (0.358-3.740) Random Cortisol 41.1 MCG/DL Result Diagram: 09/26/17 0535 09/26/17 0535 Microbiology Microbiology Date/Time Source Procedure Growth Status 09/25/17 20:50 Stool Stool Stool Occult Blood (JANIE) Pending Ordered 09/25/17 19:10 Stool Stool Stool Occult Blood (JANIE) - Final HEMOCCULT POSITIVE Complete 09/25/17 13:00 Urine Clean Catch Urine Culture - Preliminary IMMATURE GROWTH - REINCUBATE Resulted Imaging Last Impressions Chest X-Ray 09/25/172008 Signed Impressions: Service Date/Time: Monday, September 25, 2017 20:17 - CONCLUSION: Right IJ catheter in good position. No evidence of pneumothorax. Rocael France MD Head CT 09/25/17 1234 Signed Impressions: Service Date/Time: Monday, September 25, 2017 13:56 - CONCLUSION: 1. Evolving left subdural hygroma which now measures 4 mm without midline shift. 2. Senescent changes with ischemic. Anterior white matter demyelination. 3. No acute abnormality or other significant interval change. Ric Gómez MD Scrotum Ultrasound 09/25/17 0000 Signed Impressions: Service Date/Time: Monday, September 25, 2017 18:02 - CONCLUSION: 1. Normal appearance the left hemiscrotum with a greater than 6 cm cystic area without increased flow. A left testicle is not identified. 2. The right testicle has a normal appearance and intact flow by color Doppler. Rocael France MD Abdomen/Pelvis CT 09/25/17 0000 Signed Impressions: Service Date/Time: Monday, September 25, 2017 14:04 - CONCLUSION: 1. Bilateral pleural effusions and bibasilar atelectasis. 2. Nonspecific periportal edema. No change compared to the prior exam. 3. Anasarca 4. Moderate stool throughout the colon with no evidence of obstruction. 5. No significant changes compared to the prior study. Pavel Alvarenga MD Patient/Family Conference Present at Family Conference: patient, son Joey via phone. Family Conference Time (mins): 42 Family Conference Location: Bedside, Telephone Issues Discussed: * Palliative care role, purpose, approach * Additional medical, psychosocial, and spiritual history * Patients general health, functional status, and cognitive changes in the months leading up to the current hospitalization * Patient/family understanding of the current medical problems * Patient/family understanding of prognosis * Patients goals of care as best understood from advance directives and/or conversations and/or values * Current medical treatment options and benefits/burdens of those options * Questions answered to the best of my ability * Palliative care contact information provided * Hospice philosophy and benefits . Assessment and Plan Disease Oriented Problem List: (1) GI bleed (2) Atrial fibrillation with RVR (3) Bilateral pleural effusion (4) UTI (urinary tract infection) (5) Subdural hygroma (6) Anemia (7) Hypotension (8) BPH (9) Physical deconditioning Symptom Scale: (1) Abdominal pain 0-10 Scale: Unable to quantify (2) Agitation 0-10 Scale: Unable to quantify (3) Debility 0-10 Scale: Unable to quantify Pertinent Non-Medical Issues Psychosocial: Patient originally from [place]. Moved to [place] about 50 years ago. Recently working installing and maintaining phone systems, currently retired. Patient has been 3 times and . He has 3 sons. Spiritual: Lutheran isabel. Legal: Advance directives completed. Ethical issues impacting care: No ethical issues identified. . Important Contacts Son/[facility] Joey Mitchell . . Prognosis Mr. Mitchell is an 82-year-old male with medical history significant for chronic subdural hygroma, hypertension, hyperlipidemia, BPH, toxic encephalopathy, A. fib, prior GI bleed and kidney failure. Patient with recent hospitalization secondary to respiratory failure, kidney injury and GI bleed. Patient with progressive decline and multiple complications. Remains at high risk for further complications, continue decline and . . Code Status: No Code Plan * CODE STATUS: No code. DNR/DNI. This has been confirmed by patient's son/[facility] Joey. * HEALTHCARE DECISION-MAKING: Patient with limited participation in medical decision making secondary to intermittent confusion, hallucinations. Advanced directives completed, son Joey Mitchell is a designated healthcare surrogate decision-maker. No alternate surrogate. Palliative care recommends shared decision making with patient and son Joey given intermittent confusion, hallucinations. * GOALS OF CARE: Patient supported by son is electing conservative management short of NO code. Patient has declined GI workup, son supportive of this. Hospice introduced during previous acute hospitalization. As per son, goal at this time is to allow an additional 24-48 hr from clinical improvement. Son made aware that patient is at a very high risk for further complications, continued decline and given multiple chronic ongoing comorbidities, advanced age, acute events and profound physical deconditioning. Some receptive to palliative care follow-up. * SYMPTOMS: = Abdominal pain: Appears chronic in nature. GI following. Patient with multiple ED visits secondary to abdominal pain. Previously completed full GI workup with colonoscopy and EGD. Has declined additional workup for GI bleed at this time. = Agitation/hallucinations: Patient was seen by psychiatry during prior admission. Diagnosed with unspecified psychosis. He was placed on Seroquel 50mg BID. Currently on trazodone 50 mg 3 times daily. Geodon 20 mg available as needed for severe agitation. = Debility: Progressive. Worsened since most recent acute hospitalization. Patient was discharged to rehabilitation on 09/10. PT currently following. Recommending PT at rehab. * Case discussed with Dr. Syed. * Palliative care contact information has been provided to patient and family. * Palliative care will continue to follow up for further clarification of goals of care as patient's clinical course continues to evolve. . Time Spent Total Floor Time (mins): 77 (Total time to include reviewing summarization of available medical records to include prior acute hospitalization and multiple ED visits, physical exam, goals of care conversation with patient, telephone conversation with patient's son, case discussion with attending.) >50% Counseling/Coord of Care: Yes Thank you for the opportunity to participate in the care of Mr. Mitchell. Attestation To help prompt me to consider important information that might be impacting today's encounter and assessment, information from prior notes written by myself or my colleagues may have been "brought forward" into today's note. My signature on this note, however, is an attestation that I personally performed the exam, history, and/or decision-making noted today, and, unless otherwise indicated, the interactions with patient, family, and staff as well as the review of records all occurred today. I also attest that the listed assessment and stated plan reflect my best clinical judgment today based on the combination of historical information, prior notes, and today's exam/ interactions. When time spent is documented, it refers only to time spent today by the signer, or if indicated, combined time spent today by collaborating physician/nurse practitioner. Talya Lara Sep 26, 2017 16:40
[2017-09-26 19:26] LABS: HEMATOCRIT 32.4 % (39.0-51.0)
[2017-09-27] VITALS (15 sets, daily range): BP systolic 100–125; BP diastolic 55–71; PULSE 96–141; RESP 16–22; TEMP 96.7–98.7; O2SAT 93–100
[2017-09-27] MEDS: SODIUM CHLOR 0.9% 1000 ML INJ 1,000 ML IV SCH ×2 (01:00→09:21)
[2017-09-27] MEDS: metroNIDAZOLE 500 MG INJ 100 ML IV SCH ×4 (02:20→21:53)
[2017-09-27] MEDS: RESP: ALBUTEROL 2.5 MG/IPRATROPIUM 0.5 MG NEB (SCH) INH ×4 (02:30→21:23)
[2017-09-27] MEDS: MORPHINE SULFATE 4 MG/ML INJ IV PUSH PRN ×6 (02:30→22:01)
[2017-09-27] MEDS ORDERED: DILTIAZEM HCL 25 MG/5 ML VIAL IV ONE (04:00)
[2017-09-27] MEDS: CHLORHEXIDINE GLUCONATE 2 % 1 PACK (2 CLOTHS) TOP SCH (04:00)
[2017-09-27] MEDS ORDERED: DILTIAZEM HCL 25 MG/5 ML VIAL ONE (04:02)
[2017-09-27] MEDS: PANTOPRAZOLE INJ 80 MG in SODIUM CHLORIDE 0.9% INJ 100 ML IV SCH (04:07)
[2017-09-27 04:09] LABS: HEMATOCRIT 29.4 % (39.0-51.0); HEMOGLOBIN 10.2 GM/DL (13.0-17.0)
[2017-09-27 04:33] LABS: BICARBONATE 24.8 MEQ/L (21.0-32.0); CALCIUM 7.5 MG/DL (8.5-10.1); CREATININE 0.52 MG/DL (0.60-1.30)
[2017-09-27] MEDS ORDERED: DILTIAZEM HCL 25 MG/5 ML VIAL IV PUSH ONE (05:45)
[2017-09-27] MEDS: DILTIAZEM INJ 125 MG in SODIUM CHLORIDE 0.9% INJ 100 ML IV PRN ×2 (06:40→21:52)
[2017-09-27] MEDS: INSULIN NovoLIN REGULAR SUPPLEMENTAL SCALE SQ SCH ×4 (08:00→21:00)
[2017-09-27] MEDS: ARTIFICIAL TEARS OPTH SOLN 15 ML BTL EACH EYE SCH ×3 (09:00→17:36)
[2017-09-27] MEDS: SODIUM CHLORIDE 0.9% FLUSH 10 ML FLUSH IV FLUSH SCH ×5 (09:00→22:10)
[2017-09-27] MEDS: SUCRALFATE 1 GM/10 ML CUP PO SCH ×4 (09:25→21:54)
[2017-09-27] MEDS: DOCUSATE SODIUM 50 MG/SENNA 8.6 MG TAB PO SCH ×2 (09:28→21:54)
[2017-09-27] MEDS: QUEtiapine FUMARATE 25 MG TAB PO SCH ×2 (09:28→21:54)
[2017-09-27] MEDS: traZODone HCL 50 MG TAB PO SCH ×3 (09:28→16:51)
[2017-09-27] MEDS: DIGOXIN 0.5 MG/2 ML VIAL IV PUSH SCH (09:29)
[2017-09-27] MEDS: PANTOPRAZOLE SODIUM 40 MG VIAL IV PUSH SCH (09:29)
[2017-09-27] MEDS ORDERED: POTASSIUM CHLORIDE 10 MEQ CAP PO ONE (09:45)
--- NOTE | 2017-09-27 10:06 | HHI.PR ---
Subjective Remarks Follow up a-fib with RVR, sepsis. Patient is confused, agitated. He answers some questions, but is only oriented to self at this time. Heart rate has remained elevated. Objective Vitals Vital Signs Date Time Temp Pulse Resp B/P (MAP) Pulse Ox O2 Delivery O2 Flow Rate FiO2 09/27/17 08:00 98.3 135 22 125/71 (89) 97 09/27/17 06:40 130 105/62 09/27/17 06:33 130 18 105/62 (76) 93 09/27/17 05:36 96.7 132 16 102/62 (75) 100 09/27/17 04:43 104 16 113/64 (80) 96 09/27/17 04:17 118 101/57 (72) 96 09/27/17 04:13 Nasal Cannula 3.00 09/27/17 04:09 137 18 112/55 (74) 95 09/27/17 04:00 123 09/27/17 03:30 123 16 123/59 (80) 100 09/27/17 00:00 141 09/26/17 23:41 Nasal Cannula 3.00 09/26/17 23:39 98.1 116 20 110/59 (76) 97 09/26/17 20:16 97 Nasal Cannula 2.00 09/26/17 20:00 96.5 120 20 124/57 (79) 96 09/26/17 20:00 140 09/26/17 16:00 138 09/26/17 16:00 Nasal Cannula 3.00 09/26/17 14:50 09/26/17 12:38 119 20 103/62 (76) 97 Nasal Cannula 3.00 09/26/17 11:56 20 09/26/17 10:53 98.4 09/26/17 10:51 101 20 111/57 (75) 97 Nasal Cannula 3.00 09/26/17 10:38 112 89/62 09/26/17 10:28 100 Nasal Cannula 3.00 09/26/17 10:00 119 20 177/58 (97) 98 Nasal Cannula 3.00 I/O 09/26/17 09/26/17 09/26/17 09/27/17 09/27/17 09/27/17 07:00 15:00 23:00 07:00 15:00 23:00 Intake Total 1150 ml 210 ml 350 ml 400 ml Output Total 450 ml 550 ml Balance 1150 ml -240 ml -200 ml 400 ml Intake Oral 0 ml IV Total 500 ml 210 ml 350 ml Packed Cells 400 ml 400 ml Blood Product IV Normal Saline Flush 250 ml Output Urine Total 450 ml 550 ml # Bowel Movements 1 1 Result Diagram: 09/27/17 0358 09/27/17 0358 Imaging Last Impressions Chest X-Ray 09/25/172008 Signed Impressions: Service Date/Time: Monday, September 25, 2017 20:17 - CONCLUSION: Right IJ catheter in good position. No evidence of pneumothorax. Rocael France MD Head CT 09/25/17 1234 Signed Impressions: Service Date/Time: Monday, September 25, 2017 13:56 - CONCLUSION: 1. Evolving left subdural hygroma which now measures 4 mm without midline shift. 2. Senescent changes with ischemic. Anterior white matter demyelination. 3. No acute abnormality or other significant interval change. Ric Gómez MD Scrotum Ultrasound 09/25/17 0000 Signed Impressions: Service Date/Time: Monday, September 25, 2017 18:02 - CONCLUSION: 1. Normal appearance the left hemiscrotum with a greater than 6 cm cystic area without increased flow. A left testicle is not identified. 2. The right testicle has a normal appearance and intact flow by color Doppler. Rocael France MD Abdomen/Pelvis CT 09/25/17 0000 Signed Impressions: Service Date/Time: Monday, September 25, 2017 14:04 - CONCLUSION: 1. Bilateral pleural effusions and bibasilar atelectasis. 2. Nonspecific periportal edema. No change compared to the prior exam. 3. Anasarca 4. Moderate stool throughout the colon with no evidence of obstruction. 5. No significant changes compared to the prior study. Pavel Alvarenga MD Objective Remarks General: Elderly male in no acute distress. Heart: Irregular, tachycardic. Lungs: Clear to auscultation bilaterally. No wheezes, rales, or rhonchi. Breathing is nonlabored. Abdomen: Soft, nontender, nondistended. Extremities: No lower extremity edema. Psych: Alert. Oriented only to self. Procedures None Urinary Catheter: Yes Assessment to: Continue Ansari insert reason: Obstruction/Retention Vascular Central Line Catheter: No A/P Assessment and Plan 1. Atrial fibrillation with RVR: On Cardizem drip. Heart rate still elevated. Also receiving IV digoxin. Consult cardiology. 2. Left subdural hygroma without shift: CT brain on 09/25/17 showed left subdural hygroma 4 mm in size without shift. Monitor. 3. Hypertension: Antihypertensive medications on hold. 4. Dyslipidemia: Statin on hold. 5. Anemia, heme positive stools: Patient and his healthcare surrogate have refused invasive procedures. No further GI workup at this time. Continue PPI. Monitor H&H. Transfuse if necessary. 6. BPH: Flomax and doxazosin on hold secondary to low blood pressure. 7. History of Pseudomonas UTI: Continue current antibiotics. 8. DVT prophylaxis: SCDs. Avoid chemical prophylaxis secondary to possible GI bleed, anemia. 9. Appreciate palliative care assistance. I spoke with the patient's son, Franklyn Mitchell, at length today. He feels that the patient would want to transition to comfort care measures if there is no hope of meaningful recovery. At this time we will attempt to control his heart rate with medications. He does not want any invasive procedures. Consider hospice consult if patient is not improving. Payam Syed MD Sep 27, 2017 10:06
[2017-09-27] MEDS: NS + KCL 20 MEQ INJ 1,000 ML IV SCH ×2 (10:26→21:40)
[2017-09-27] MEDS: CEFEPIME INJ 2,000 MG in SODIUM CHLORIDE 0.9% INJ 100 ML IV SCH ×2 (11:41→23:11)
[2017-09-27] MEDS: MULTIVITAMIN INJ 10 ML, THIAMINE INJ 100 MG, FOLIC ACID INJ 1 MG in SODIUM CHLORID 0.9%... IV SCH (12:50)
[2017-09-27 13:04] LABS: HEMATOCRIT 31.2 % (39.0-51.0); HEMOGLOBIN 10.7 GM/DL (13.0-17.0)
--- NOTE | 2017-09-27 14:45 | HHI.HCPN ---
Reason for visit a. To assist with evaluation and management of symptoms including: Abdominal pain, debility, agitation. b. To assist medical decision maker(s) with: better understanding of current medical conditions; weighing benefits/burdens of medical treatment options; making medical treatment decisions. . Subjective/Interval History Palliative care follow-up for further clarifications of goals of care. Patient seen in his room. In bed in no acute distress. Alert to self only. Slower speech, not moving right side of his lips. However, able to raise both arms above head level and smile without facial drooping. Appears the patient has continue biting his lips and tongue. Patient endorsing abdominal pain, unable to elaborate on complaints. Verbalizing "I want to be out of here". Patient afebrile, tolerating O2 via nasal cannula at 3l. A. fib with RVR, heart rate in the mid 130s. Currently on Cardizem drip, cardiology has been consulted. Hemoglobin stable at 10.7. No signs of acute bleed reported. Case discussed with Dr. Syed. He was able to update son on patient's medical condition earlier today. Telephone call to patient's son Joey, left message on [employer]. . Family/friend interactions See interval note. . Advance Directives Living Will: Copy in medical record Health Care Surrogate: Copy in medical record Durable Power of Research And Development Specialist: Copy in medical record Advance Directive Specifics Date completed: 10/18/2007. . Health Care Surrogate(s): Patient elected son Joey Mitchell as healthcare surrogate decision maker. No alternate surrogate. . Documented care wishes: Living will with standard verbiage as it pertains to life-prolonging procedures/ measures. . Significant change in goals: Conservative management short of no code. . Objective Vital Signs Date Time Temp Pulse Resp B/P (MAP) Pulse Ox O2 Delivery O2 Flow Rate FiO2 09/27/17 12:00 98.4 123 20 115/68 (84) 94 09/27/17 08:00 98.3 135 22 125/71 (89) 97 09/27/17 06:40 130 105/62 09/27/17 06:33 130 18 105/62 (76) 93 09/27/17 05:36 96.7 132 16 102/62 (75) 100 09/27/17 04:43 104 16 113/64 (80) 96 09/27/17 04:17 118 101/57 (72) 96 09/27/17 04:13 Nasal Cannula 3.00 09/27/17 04:09 137 18 112/55 (74) 95 09/27/17 04:00 123 09/27/17 03:30 123 16 123/59 (80) 100 09/27/17 00:00 141 09/26/17 23:41 Nasal Cannula 3.00 09/26/17 23:39 98.1 116 20 110/59 (76) 97 09/26/17 20:16 97 Nasal Cannula 2.00 09/26/17 20:00 96.5 120 20 124/57 (79) 96 09/26/17 20:00 140 09/26/17 16:00 138 09/26/17 16:00 Nasal Cannula 3.00 09/26/17 14:50 Intake & Output 09/27/17 09/27/17 07:00 19:00 Intake Total 350 ml 400 ml Output Total 550 ml Balance -200 ml 400 ml Intake Oral 0 ml IV Total 350 ml Packed Cells 400 ml Output Urine Total 550 ml # Bowel Movements 1 Physical Exam CONSTITUTIONAL/GENERAL: This is an adequately nourished patient, in no apparent distress. TUBES/LINES/DRAINS: Nasal cannula, PIV. SKIN: No jaundice, rashes. Large areas of ecchymoses on upper extremities. Skin temperature appropriate. Not diaphoretic. HEAD: Atraumatic. Normocephalic. EYES: Pupils equal and round and reactive. Extraocular motions intact. No scleral icterus. No injection or drainage. ENT: Hearing grossly normal. Nose without bleeding or purulent drainage. Tongue with signs of trauma, blood. NECK: Trachea midline. Supple, nontender. CARDIOVASCULAR: irregular rate and rhythm. Peripheral pulses symmetric. RESPIRATORY/CHEST: Symmetric, unlabored respirations. Clear, diminished to auscultation. GASTROINTESTINAL: Abdomen soft, tender to palpation. Guarded. Bowel sounds present. GENITOURINARY: Without palpable bladder distension. Ansari catheter in place. MUSCULOSKELETAL: Extremities without clubbing, cyanosis. No mottling or clubbing. Bilateral pedal edema. NEUROLOGICAL: Awake and alert x self. Follows commands. Moves all extremities. Slurred speech. PSYCHIATRIC: Calm. . Diagnostic Tests Laboratory Laboratory Tests Test 3/6/18 13:00 09/25/17 14:19 09/26/17 00:40 09/26/17 05:35 Urine Color YELLOW (YELLW/STRAW) Urine Turbidity HAZY (CLEAR) Urine pH 5.5 (5.0-8.5) Urine Specific [place] 1.023 (1.002-1.035) Urine Protein 30 mg/dL (NEG-TRACE) Urine Glucose (UA) NEG mg/dL (NEG) Urine Ketones 40 mg/dL (NEG) Urine Occult Blood SMALL (NEG) Urine Nitrite NEG (NEG) Urine Bilirubin NEG (NEG) Urine Urobilinogen 2.0 MG/DL (LESS THAN Urine Leukocyte Esterase LARGE (NEG) Urine RBC 8 /hpf (0-3) Urine WBC 121 /hpf (0-5) Urine WBC Clumps RARE (NONE) Urine Bacteria OCC /hpf (NONE) Urine Mucus MANY /lpf (OCC) Microscopic Urinalysis Comment CULTURE INDICATED Blood Urea Nitrogen 11 MG/DL (7-18) 14 MG/DL (7-18) Creatinine 0.59 MG/DL (0.60-1.30) 0.65 MG/DL (0.60-1.30) Random Glucose 85 MG/DL (74-106) 85 MG/DL (74-106) Total Protein 6.0 GM/DL (6.4-8.2) 5.6 GM/DL (6.4-8.2) Albumin 2.6 GM/DL (3.4-5.0) 2.2 GM/DL (3.4-5.0) Calcium Level 8.0 MG/DL (8.5-10.1) 7.5 MG/DL (8.5-10.1) Magnesium Level 1.9 MG/DL (1.5-2.5) 1.8 MG/DL (1.5-2.5) Alkaline Phosphatase 98 U/L (45-117) 84 U/L (45-117) Aspartate Amino Transf (AST/SGOT) 27 U/L (15-37) 24 U/L (15-37) Alanine Aminotransferase (ALT/SGPT) 49 U/L (12-78) 42 U/L (12-78) Total Bilirubin 0.5 MG/DL (0.2-1.0) 1.2 MG/DL (0.2-1.0) Sodium Level 137 MEQ/L (136-145) 138 MEQ/L (136-145) Potassium Level 3.7 MEQ/L (3.5-5.1) 3.5 MEQ/L (3.5-5.1) Chloride Level 99 MEQ/L (98-107) 104 MEQ/L (98-107) Carbon Dioxide Level 25.1 MEQ/L (21.0-32.0) 23.3 MEQ/L (21.0-32.0) Anion Gap 13 MEQ/L (5-15) 11 MEQ/L (5-15) Estimat Glomerular Filtration Rate 131 ML/MIN (>89) 117 ML/MIN (>89) Lactic Acid Level 1.4 mmol/L (0.4-2.0) 1.7 mmol/L (0.4-2.0) 1.5 mmol/L (0.4-2.0) Total Creatine Kinase 140 U/L (39-308) 111 U/L (39-308) Creatine Kinase MB 3.9 NG/ML (0.5-3.6) Troponin I LESS THAN 0.02 NG/ML LESS THAN 0.02 NG/ML Lipase 61 U/L (73-393) 39 U/L (73-393) White Blood Count 7.1 TH/MM3 (4.0-11.0) 8.3 TH/MM3 (4.0-11.0) Red Blood Count 2.61 MIL/MM3 (4.50-5.90) 3.13 MIL/MM3 (4.50-5.90) Hemoglobin 8.1 GM/DL (13.0-17.0) 9.1 GM/DL (13.0-17.0) 9.9 GM/DL (13.0-17.0) Hematocrit 24.1 % (39.0-51.0) 27.0 % (39.0-51.0) 28.6 % (39.0-51.0) Mean Corpuscular Volume 92.4 FL (80.0-100.0) 91.2 FL (80.0-100.0) Mean Corpuscular Hemoglobin 31.2 PG (27.0-34.0) 31.6 PG (27.0-34.0) Mean Corpuscular Hemoglobin Concent 33.8 % (32.0-36.0) 34.7 % (32.0-36.0) Red Cell Distribution Width 15.9 % (11.6-17.2) 15.1 % (11.6-17.2) Platelet Count 168 TH/MM3 (150-450) 219 TH/MM3 (150-450) Mean Platelet Volume 7.9 FL (7.0-11.0) 7.6 FL (7.0-11.0) Neutrophils (%) (Auto) 76.2 % (16.0-70.0) 77.3 % (16.0-70.0) Lymphocytes (%) (Auto) 9.6 % (9.0-44.0) 8.1 % (9.0-44.0) Monocytes (%) (Auto) 13.4 % (0.0-8.0) 14.2 % (0.0-8.0) Eosinophils (%) (Auto) 0.5 % (0.0-4.0) 0.1 % (0.0-4.0) Basophils (%) (Auto) 0.3 % (0.0-2.0) 0.3 % (0.0-2.0) Neutrophils # (Auto) 5.4 TH/MM3 (1.8-7.7) 6.4 TH/MM3 (1.8-7.7) Lymphocytes # (Auto) 0.7 TH/MM3 (1.0-4.8) 0.7 TH/MM3 (1.0-4.8) Monocytes # (Auto) 1.0 TH/MM3 (0-0.9) 1.2 TH/MM3 (0-0.9) Eosinophils # (Auto) 0.0 TH/MM3 (0-0.4) 0.0 TH/MM3 (0-0.4) Basophils # (Auto) 0.0 TH/MM3 (0-0.2) 0.0 TH/MM3 (0-0.2) CBC Comment DIFF FINAL DIFF FINAL Differential Comment Prothrombin Time 13.5 SEC (9.8-11.6) 13.2 SEC (9.8-11.6) Prothromb Time International Ratio 1.3 RATIO 1.3 RATIO Activated Partial Thromboplast Time 29.4 SEC (24.3-30.1) 30.3 SEC (24.3-30.1) Fibrinogen 320 mg/dL (227-377) Phosphorus Level 2.9 MG/DL (2.5-4.9) Hemoglobin A1c 5.4 % (4.3-6.0) Ammonia 21 MCMOL/L (11-32) Triglycerides Level 66 MG/DL (42-150) Cholesterol Level 77 MG/DL (120-200) LDL Cholesterol 22 MG/DL (0-99) HDL Cholesterol 42.1 MG/DL (40.0-60.0) Cholesterol/HDL Ratio 1.82 RATIO Amylase Level 16 U/L (25-115) Free Thyroxine 1.13 NG/DL (0.76-1.46) Thyroid Stimulating Hormone 3rd Gen 6.950 uIU/ML (0.358-3.740) Random Cortisol 41.1 MCG/DL Test 09/26/17 15:40 09/26/17 19:08 09/27/17 03:58 09/27/17 07:10 Hemoglobin 11.1 GM/DL (13.0-17.0) 11.0 GM/DL (13.0-17.0) 10.2 GM/DL (13.0-17.0) Hematocrit 31.1 % (39.0-51.0) 32.4 % (39.0-51.0) 29.4 % (39.0-51.0) Lactic Acid Level 1.5 mmol/L (0.4-2.0) 1.2 mmol/L (0.4-2.0) 1.2 mmol/L (0.4-2.0) Blood Urea Nitrogen 11 MG/DL (7-18) Creatinine 0.52 MG/DL (0.60-1.30) Random Glucose 81 MG/DL (74-106) Calcium Level 7.5 MG/DL (8.5-10.1) Sodium Level 141 MEQ/L (136-145) Potassium Level 3.0 MEQ/L (3.5-5.1) Chloride Level 108 MEQ/L (98-107) Carbon Dioxide Level 24.8 MEQ/L (21.0-32.0) Anion Gap 8 MEQ/L (5-15) Estimat Glomerular Filtration Rate 152 ML/MIN (>89) Test 09/27/17 12:25 Hemoglobin 10.7 GM/DL (13.0-17.0) Hematocrit 31.2 % (39.0-51.0) Result Diagram: 09/27/17 1225 09/27/17 0358 Microbiology Microbiology Date/Time Source Procedure Growth Status 09/25/17 20:50 Stool Stool Stool Occult Blood (JANIE) Pending Ordered 09/25/17 19:10 Stool Stool Stool Occult Blood (JANIE) - Final HEMOCCULT POSITIVE Complete 09/25/17 13:00 Urine Clean Catch Urine Culture - Final <10,000 CFU/ML GRAM NEGATIVE MIKE Complete Assessment and Plan Disease Oriented Problem List: (1) GI bleed (2) Atrial fibrillation with RVR (3) Bilateral pleural effusion (4) UTI (urinary tract infection) (5) Subdural hygroma (6) Anemia (7) Hypotension (8) BPH (9) Physical deconditioning Symptom Scale: (1) Abdominal pain 0-10 Scale: Unable to quantify (2) Agitation 0-10 Scale: Unable to quantify (3) Debility 0-10 Scale: Unable to quantify Pertinent Non-Medical Issues Psychosocial: Patient originally from [place]. Moved to [place] about 50 years ago. 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 Patient has been 3 times and . He has 3 sons. Spiritual: Confucianism isabel. Legal: Advance directives completed. Ethical issues impacting care: No ethical issues identified. . Important Contacts Son/[facility] Joey Mitchell . . Prognosis Mr. Mitchell is an 82-year-old male with medical history significant for chronic subdural hygroma, hypertension, hyperlipidemia, BPH, toxic encephalopathy, A. fib, prior GI bleed and kidney failure. Patient with recent hospitalization secondary to respiratory failure, kidney injury and GI bleed. Patient with progressive decline and multiple complications. Remains at high risk for further complications, continue decline and . . Code Status: No Code Plan * CODE STATUS: No code. DNR/DNI. This has been confirmed by patient's son/[facility] Joey. * HEALTHCARE DECISION-MAKING: Patient with very limited participation and medical decision making secondary to confusion, hallucinations. Advanced directives completed, anai Mitchell is a designated healthcare surrogate decision-maker. No alternate surrogate. Palliative care recommends shared decision making with patient and son Joey given intermittent confusion, hallucinations. * GOALS OF CARE: Son electing conservative management short of NO code, GI workup declined. Hospice introduced during previous acute hospitalization. As per son, goal at this time is to allow an additional 24-48 hr for clinical improvement. Son made aware that patient is at a very high risk for further complications, continued decline and given multiple chronic ongoing comorbidities, advanced age, acute events and profound physical deconditioning. Son receptive to palliative care follow-up. * SYMPTOMS: = Abdominal pain: Appears chronic in nature. GI following. Patient with multiple ED visits secondary to abdominal pain. Previously completed full GI workup with colonoscopy and EGD. Has declined additional workup for GI bleed. H&H stable. = Agitation/hallucinations: Patient was seen by psychiatry during prior admission. Diagnosed with unspecified psychosis. Currently on Seroquel 50mg BID. Trazodone 50 mg 3 times daily. Geodon 20 mg available as needed for severe agitation. = Debility: Progressive. Worsened since most recent acute hospitalization. Patient was discharged to rehabilitation on 09/10. PT currently following. Recommending PT at rehab. * Case discussed with Dr. Syed. * Palliative care contact information has been provided to patient and family. * Palliative care will continue to follow up for further clarification of goals of care as patient's clinical course continues to evolve. . Time Spent Total Floor Time (mins): 22 (Total time to include review medical records, physical exam, telephone call to son, case discussion with attending.) >50% Counseling/Coord of Care: Yes Attestation To help prompt me to consider important information that might be impacting today's encounter and assessment, information from prior notes written by myself or my colleagues may have been "brought forward" into today's note. My signature on this note, however, is an attestation that I personally performed the exam, history, and/or decision-making noted today, and, unless otherwise indicated, the interactions with patient, family, and staff as well as the review of records all occurred today. I also attest that the listed assessment and stated plan reflect my best clinical judgment today based on the combination of historical information, prior notes, and today's exam/ interactions. When time spent is documented, it refers only to time spent today by the signer, or if indicated, combined time spent today by collaborating physician/nurse practitioner. Talya Lara Sep 27, 2017 14:45
[2017-09-27] MEDS ORDERED: DIGOXIN 0.5 MG/2 ML VIAL IV PUSH ONE (18:00)
[2017-09-27] MEDS ORDERED: METOPROLOL TARTRATE 5 MG/5 ML VIAL IV PUSH SCH (18:00)
--- NOTE | 2017-09-27 18:45 | MB ---
cc: Gideon Mclean MD DATE OF CONSULT: 09/27/2017 REASON FOR CONSULTATION: Atrial fibrillation with a rapid ventricular response. HISTORY OF PRESENT ILLNESS: The patient is an 82-year-old white male, followed in our office by Dr. Glenda Lugo, with a history of multiple medical problems including chronic atrial fibrillation, hypertension, status post recent prolonged admission for acute salicylate poisoning, GI bleeding, and rhabdomyolysis who apparently was brought back to the hospital due to poor oral intake and complaints of abdominal pain. The patient denies any chest pain, abdominal pain, nausea, vomiting, shortness of breath, palpitations, dizziness, syncope, near syncope, pedal edema. PAST MEDICAL HISTORY: 1. Chronic atrial fibrillation. 2. Hypertension. 3. Benign prostatic hypertrophy. 4. Hyperlipidemia. 5. Gastroesophageal reflux disease. 6. Severe ulcerative esophagitis demonstrated by endoscopy 08/2016. 7. Acute dialysis last month, needed for salicylate poisoning. 8. History of right-sided pneumothorax, necessitating chest tube placement last month. 9. Chronic subdural hematoma. 10. Peptic ulcer disease with 2 gastric ulcers seen on endoscopy last month. CARDIAC MEDICATIONS AT HOME: Lovastatin 20 mg daily, Cardura 4 mg daily, amlodipine 5 mg daily, metoprolol 25 mg q.12 hours, Cardizem 60 mg q.6 hours. ALLERGIES: NO KNOWN DRUG ALLERGIES. FAMILY HISTORY: Noncontributory. SOCIAL HISTORY: The patient smokes about a pack of cigarettes per day. He also drinks 4-5 beers per day. REVIEW OF SYSTEMS: As in the history of present illness, otherwise negative or noncontributory. He also denies headache, melena, bright red blood per rectum, wheezing, cough, fevers. PHYSICAL EXAMINATION: VITAL SIGNS: His blood pressure 115/68 with a pulse of 120, respirations 20. GENERAL: He is a well developed thin white male, in no acute distress. NECK: Jugular venous pressure is normal. Carotid pulses are 2+ bilaterally and without bruits. CHEST: Reveals diminished breath sounds at the bases. CARDIAC: He has a tachycardic irregular rhythm, without S3 or murmur. ABDOMEN: He has a soft abdomen. There is mild epigastric tenderness without rebound or guarding. Bowel sounds are present. EXTREMITIES: Reveals no clubbing, cyanosis or edema. LABORATORY DATA: Includes hemoglobin 10.7 (8.1 on admission), WBC 8.3, platelets 219. Potassium 3.0, BUN 11, creatinine 0.52. CK 111. Troponin less than 0.02. EKG shows atrial fibrillation with a rapid ventricular response, left axis deviation, septal infarct. IMPRESSION: Elevated heart rates in this 82-year-old white male with a history of multiple medical problems including chronic atrial fibrillation, hypertension, hyperlipidemia, gastrointestinal bleeding, peptic ulcer disease. The elevated heart rates may be multifactorial in origin, including continued dehydration, possibly some alcohol withdrawal, agitation. There is no evidence for acute coronary syndrome. Overall, there is no definitive evidence for congestive heart failure. He apparently had an echocardiogram last admission showing normal left ventricular function. RECOMMENDATIONS: 1. Agree with intravenous digoxin and intravenous Cardizem. 2. We will try to add a beta carey as well. 3. Overall, he does appear to be a poor candidate for anticoagulation therapy, but would consider daily baby aspirin if okay from a GI standpoint. MD JOSE LUIS Hathaway/VASILE , 05:32 PM , 06:43 PM KARYN
[2017-09-28] VITALS (10 sets, daily range): BP systolic 94–119; BP diastolic 51–58; PULSE 88–111; RESP 16–20; TEMP 97.9–98.5; O2SAT 91–97
[2017-09-28] MEDS: LEVOFLOXACIN 750 MG PREMIX INJ 150 ML IV SCH ×2 (00:48→22:45)
[2017-09-28] MEDS: MORPHINE SULFATE 4 MG/ML INJ IV PUSH PRN ×6 (00:54→17:42)
[2017-09-28] MEDS: RESP: ALBUTEROL 2.5 MG/IPRATROPIUM 0.5 MG NEB (SCH) INH ×4 (01:50→22:00)
[2017-09-28] MEDS: metroNIDAZOLE 500 MG INJ 100 ML IV SCH ×4 (02:06→21:05)
[2017-09-28] MEDS: METOPROLOL TARTRATE 25 MG TAB PO SCH ×4 (02:06→22:46)
[2017-09-28 02:16] LABS: HEMATOCRIT 28.4 % (39.0-51.0); HEMOGLOBIN 9.8 GM/DL (13.0-17.0)
[2017-09-28] MEDS: CHLORHEXIDINE GLUCONATE 2 % 1 PACK (2 CLOTHS) TOP SCH (03:21)
[2017-09-28 06:14] LABS: AUTOMATED NEUTROPHIL # 4.5 TH/MM3 (1.8-7.7); BASOPHIL % 0.5 % (0.0-2.0); EOSINOPHIL # 0.2 TH/MM3 (0-0.4); EOSINOPHIL % 2.8 % (0.0-4.0); HEMATOCRIT 29.5 % (39.0-51.0); HEMOGLOBIN 10.2 GM/DL (13.0-17.0); LYMPH % 11.6 % (9.0-44.0); LYMPHOCYTE # 0.8 TH/MM3 (1.0-4.8); MEAN CELL VOLUME 91.4 FL (80.0-100.0); MEAN CORPUSCULAR HEMOGLOBIN 31.5 PG (27.0-34.0); MEAN CORPUSCULAR HGB CONC 34.4 % (32.0-36.0); MEAN PLATELET VOLUME 6.8 FL (7.0-11.0); MONO % 18.9 % (0.0-8.0); MONOCYTE # 1.3 TH/MM3 (0-0.9); NEUT % 66.2 % (16.0-70.0); PLATELET COUNT 351 TH/MM3 (150-450); RED BLOOD COUNT 3.23 MIL/MM3 (4.50-5.90); RED CELL DISTRIBUTION WIDTH 15.6 % (11.6-17.2); WHITE BLOOD COUNT 6.8 TH/MM3 (4.0-11.0)
[2017-09-28 06:44] LABS: BICARBONATE 24.7 MEQ/L (21.0-32.0); CALCIUM 7.5 MG/DL (8.5-10.1); CREATININE 0.56 MG/DL (0.60-1.30)
[2017-09-28 07:12] LABS: BANDS 4 % (0-6); LYMPHOCYTES 4 % (9-44); MONOCYTES 8 % (0-8); MYELOCYTES 2 % (0-0); NEUTROPHIL # MANUAL DIFF 5.8 TH/MM3 (1.8-7.7); OVALOCYTES 1+ (NORMAL); POLYS (SEG NEUTROPHILS) 80 % (16-70)
[2017-09-28] MEDS: NS + KCL 20 MEQ INJ 1,000 ML IV SCH (07:21)
--- NOTE | 2017-09-28 08:04 | PD.CARD.PN ---
Subjective Subjective Remarks Somnolent. Arousable. Denies CP, abdominal pain, nausea, dyspnea, palpitations. Objective Medications Item Value Date Time Metoprolol 12.5 mg 09/28/17 0200 Tartrate Q6H/PO 09/28/17 0206 (Lopressor) Potassium 1,000 ml @ 84 mls/hr 09/27/17 0945 Chloride/Sodium .[id number]/IV 09/28/17 0721 Chloride Digoxin 0.25 mg 09/27/17 0900 (Lanoxin Inj) DAILY/IV PUSH 09/27/17 0929 Diltiazem HCl 125 125 ml @ 5 mls/hr 09/27/17 0545 mg/Sodium Chloride TITRATE PRN/IV 09/27/17 2962 Current Medications Medications (Trade) Dose Ordered Sig/Ortega Route Start Time Stop Time Status Last Admin (NS Flush) 2 ml UNSCH PRN IV FLUSH 09/25/17 15:45 09/27/17 04:06 (NS Flush) 2 ml BID IV FLUSH 09/25/17 21:00 09/27/17 22:09 (Narcan Inj) 0.4 mg UNSCH PRN IV PUSH 09/25/17 15:45 Ciprofloxacin/ Dextrose 200 ml @ 200 mls/hr Q12H IV 09/25/17 19:00 Future Hold (Bentyl) 10 mg TID PRN PO 09/25/17 20:15 09/26/17 20:12 (Carafate Liq) 1 gm ACHS PO 09/25/17 21:00 09/27/17 21:54 (Desyrel) 50 mg TID PO 09/26/17 09:00 09/27/17 16:51 (SEROquel) 50 mg BID PO 09/25/17 21:00 09/27/17 21:54 (NS Flush) DAILY IV FLUSH 09/26/17 09:00 (NS Flush) UNSCH PRN IV FLUSH 09/25/17 20:15 09/26/17 08:53 (Brethine Inj) 1 mg UNSCH PRN SQ 09/25/17 20:15 Cefepime HCl 2000 mg/Sodium Chloride 100 ml @ 200 mls/hr Q12H IV 09/25/17 22:00 09/27/17 23:11 Metronidazole 100 ml @ 100 mls/hr Q6H IV 09/25/17 21:00 09/28/17 02:06 (NS Flush) 2 ml UNSCH PRN IV FLUSH 09/25/17 20:30 (NS Flush) 2 ml BID IV FLUSH 09/25/17 21:00 09/27/17 22:10 (Tylenol) 650 mg Q6H PRN PO 09/25/17 20:30 (Morphine Inj) 2 mg Q2H PRN IV PUSH 09/25/17 20:30 09/27/17 16:52 (Protonix Inj) 40 mg DAILY IV PUSH 09/26/17 09:00 09/27/17 09:29 (Tears Naturale Opth Soln) 1 drop TID EACH EYE 09/26/17 09:00 09/27/17 13:00 (Zofran Inj) 4 mg Q6H PRN IV PUSH 09/25/17 20:30 (Duoneb Neb) 1 ampule Q6HR NEB INH 09/25/17 22:00 09/27/17 02:30 (Albuterol Neb) 2.5 mg Q2HR NEB PRN INH 09/25/17 20:30 Miscellaneous Information 1 Q361D XX 09/25/17 20:30 (Chlorhexidine 2% Cloth) 3 pack Taper DAILY@04 TOP 09/26/17 04:00 09/22/18 03:59 (Chlorhexidine 2% Cloth) 3 pack UNSCH PRN TOP 09/25/17 20:30 (Octavia-Colace) 1 tab BID PO 09/25/17 21:00 09/27/17 21:54 (Milk Of Magnesia Liq) 30 ml Q12H PRN PO 09/25/17 20:30 (Senokot) 17.2 mg Q12H PRN PO 09/25/17 20:30 (Dulcolax Supp) 10 mg DAILY PRN RECTAL 09/25/17 20:30 (Lactulose Liq) 30 ml DAILY PRN PO 09/25/17 20:30 (D50w (Vial) Inj) 50 ml UNSCH PRN IV PUSH 09/25/17 20:30 (Glucagon Inj) 1 mg UNSCH PRN OTHER 09/25/17 20:30 (NovoLIN R SUPPLEMENTAL SCALE) 1 ACHS SLIDING SCALE SQ 09/25/17 21:00 Levofloxacin/ Dextrose 150 ml @ 100 mls/hr Q24H IV 09/25/17 23:00 09/28/17 00:48 Multivitamins 10 ml/Thiamine HCl 100 mg/Folic Acid 1 mg/Sodium Chloride 511.2 ml @ 125 mls/hr DAILY IV 09/26/17 09:00 09/27/17 12:50 (Morphine Inj) 4 mg Q2H PRN IV PUSH 09/26/17 11:30 09/28/17 05:52 (Geodon Inj) 20 mg Q12H PRN IM 09/26/17 11:30 09/26/17 12:32 (Lanoxin Inj) 0.25 mg DAILY IV PUSH 09/27/17 09:00 09/27/17 09:29 Diltiazem HCl 125 mg/Sodium Chloride 125 ml @ 5 mls/hr TITRATE PRN IV 09/27/17 05:45 09/27/17 21:52 Potassium Chloride/Sodium Chloride 1,000 ml @ 84 mls/hr [id number] IV 09/27/17 09:45 09/28/17 07:21 (Lopressor Inj) 5 mg Q6H IV PUSH 09/27/17 18:00 Future Hold 09/27/17 17:59 (Lopressor) 12.5 mg Q6H PO 09/28/17 02:00 09/28/17 08:01 09/28/17 02:06 Vital Signs / I&O Vital Signs Date Time Temp Pulse Resp B/P (MAP) Pulse Ox O2 Delivery O2 Flow Rate FiO2 09/28/17 04:52 98.2 111 20 94/51 (65) 97 09/27/17 23:20 98.0 129 20 100/60 (73) 97 09/27/17 21:52 127 119/66 09/27/17 21:26 98.4 127 20 119/66 (83) 95 09/27/17 21:22 95 Nasal Cannula 3.00 09/27/17 20:30 Nasal Cannula 3.00 09/27/17 16:00 98.7 135 20 119/67 (84) 95 09/27/17 12:00 98.4 123 20 115/68 (84) 94 09/27/17 08:00 98.3 135 22 125/71 (89) 97 09/27/17 08:00 Nasal Cannula 3.00 09/27/17 08:00 141 I/O 09/27/17 09/27/17 09/27/17 09/28/17 09/28/17 09/28/17 07:00 15:00 23:00 07:00 15:00 23:00 Intake Total 350 ml 400 ml 350 ml Output Total 550 ml 551 ml 650 ml Balance -200 ml 400 ml -551 ml -300 ml Intake Oral 0 ml 0 ml IV Total 350 ml 350 ml Packed Cells 400 ml Output Urine Total 550 ml 550 ml 650 ml Stool Total 1 ml # Bowel Movements 1 1 Physical Exam GENERAL: Well developed, very thin. No acute distress. HEENT: Jugular venous pressure is normal. CHEST: Few scattered anterior rhonchi. CARDIAC: Tachycardic irregular rhythm without S3 or murmur. ABDOMEN: Soft, nontender, no hepatosplenomegaly. Bowel sounds present. EXTREMITIES: No clubbing, cyanosis, or edema. Laboratory Laboratory Tests Test 09/27/17 12:25 09/28/17 01:40 09/28/17 05:50 Hemoglobin 10.7 GM/DL 9.8 GM/DL 10.2 GM/DL Hematocrit 31.2 % 28.4 % 29.5 % White Blood Count 6.8 TH/MM3 Red Blood Count 3.23 MIL/MM3 Mean Corpuscular Volume 91.4 FL Mean Corpuscular Hemoglobin 31.5 PG Mean Corpuscular Hemoglobin Concent 34.4 % Red Cell Distribution Width 15.6 % Platelet Count 351 TH/MM3 Mean Platelet Volume 6.8 FL Neutrophils (%) (Auto) 66.2 % Lymphocytes (%) (Auto) 11.6 % Monocytes (%) (Auto) 18.9 % Eosinophils (%) (Auto) 2.8 % Basophils (%) (Auto) 0.5 % Neutrophils # (Auto) 4.5 TH/MM3 Lymphocytes # (Auto) 0.8 TH/MM3 Monocytes # (Auto) 1.3 TH/MM3 Eosinophils # (Auto) 0.2 TH/MM3 Basophils # (Auto) 0.0 TH/MM3 CBC Comment AUTO DIFF Differential Total Cells Counted 100 Neutrophils % (Manual) 80 % Band Neutrophils % 4 % Lymphocytes % 4 % Monocytes % 8 % Eosinophils % 2 % Neutrophils # (Manual) 5.8 TH/MM3 Myelocytes 2 % Differential Comment FINAL DIFF MANUAL Platelet Estimate NORMAL Platelet Morphology Comment NORMAL Ovalocytes 1+ Blood Urea Nitrogen 7 MG/DL Creatinine 0.56 MG/DL Random Glucose 72 MG/DL Calcium Level 7.5 MG/DL Sodium Level 144 MEQ/L Potassium Level 3.6 MEQ/L Chloride Level 112 MEQ/L Carbon Dioxide Level 24.7 MEQ/L Anion Gap 7 MEQ/L Estimat Glomerular Filtration Rate 139 ML/MIN Assessment and Plan Problem List: (1) Chronic atrial fibrillation ICD Codes: I48.2 - Chronic atrial fibrillation Status: Chronic Plan: Stable overnight. HR's still elevated, even while asleep. Suspect elevation in HR's multifactorial in etiology. Patient probably still dehydrated , may have some element of alcohol withdrawal. No evidence for CHF or ACS. Patient not good candidate for anticoagulation therapy. REC continue rehydration continue IV Cardizem, IV digoxin, can change to oral when possible continue metoprolol consider at least baby aspirin if OK from GI standpoint (2) Hypertension ICD Codes: I10 - Essential (primary) hypertension Status: Chronic Plan: Hypertension not active issue. Code Status NO CODE Problem Qualifiers (1) Hypertension: Qualified Codes: I10 - Essential (primary) hypertension Gideon Mclean MD Sep 28, 2017 08:04
[2017-09-28] MEDS: DILTIAZEM INJ 125 MG in SODIUM CHLORIDE 0.9% INJ 100 ML IV PRN (08:31)
[2017-09-28] MEDS: PANTOPRAZOLE SODIUM 40 MG VIAL IV PUSH SCH (08:35)
[2017-09-28] MEDS: QUEtiapine FUMARATE 25 MG TAB PO SCH ×2 (08:36→21:04)
[2017-09-28] MEDS: SUCRALFATE 1 GM/10 ML CUP PO SCH ×4 (08:36→21:05)
[2017-09-28] MEDS: DOCUSATE SODIUM 50 MG/SENNA 8.6 MG TAB PO SCH ×2 (08:36→21:00)
[2017-09-28] MEDS: SODIUM CHLORIDE 0.9% FLUSH 10 ML FLUSH IV FLUSH SCH ×5 (08:36→21:05)
[2017-09-28] MEDS: traZODone HCL 50 MG TAB PO SCH ×3 (08:36→17:41)
[2017-09-28] MEDS: SODIUM CHLORIDE 0.9% FLUSH 10 ML FLUSH IV FLUSH PRN (08:36)
[2017-09-28] MEDS: DIGOXIN 0.5 MG/2 ML VIAL IV PUSH SCH (08:36)
[2017-09-28] MEDS: ARTIFICIAL TEARS OPTH SOLN 15 ML BTL EACH EYE SCH ×3 (08:37→17:41)
[2017-09-28] MEDS: INSULIN NovoLIN REGULAR SUPPLEMENTAL SCALE SQ SCH ×4 (08:37→21:00)
[2017-09-28] MEDS: MULTIVITAMIN INJ 10 ML, THIAMINE INJ 100 MG, FOLIC ACID INJ 1 MG in SODIUM CHLORID 0.9%... IV SCH (08:44)
--- NOTE | 2017-09-28 09:19 | HHI.PR ---
Subjective Remarks Follow up a-fib with RVR. Patient remains confused today. He does answer some questions and denies pain at this time. Objective Vitals Vital Signs Date Time Temp Pulse Resp B/P (MAP) Pulse Ox O2 Delivery O2 Flow Rate FiO2 09/28/17 08:31 85 104/55 09/28/17 04:52 98.2 111 20 94/51 (65) 97 09/28/17 04:00 98 09/28/17 00:00 111 09/27/17 23:20 98.0 129 20 100/60 (73) 97 09/27/17 21:52 127 119/66 09/27/17 21:26 98.4 127 20 119/66 (83) 95 09/27/17 21:22 95 Nasal Cannula 3.00 09/27/17 20:30 Nasal Cannula 3.00 09/27/17 20:00 96 09/27/17 16:00 98.7 135 20 119/67 (84) 95 09/27/17 12:00 98.4 123 20 115/68 (84) 94 I/O 09/27/17 09/27/17 09/27/17 09/28/17 09/28/17 09/28/17 07:00 15:00 23:00 07:00 15:00 23:00 Intake Total 350 ml 400 ml 350 ml Output Total 550 ml 551 ml 650 ml Balance -200 ml 400 ml -551 ml -300 ml Intake Oral 0 ml 0 ml IV Total 350 ml 350 ml Packed Cells 400 ml Output Urine Total 550 ml 550 ml 650 ml Stool Total 1 ml # Bowel Movements 1 1 Result Diagram: 09/28/17 0550 09/28/17 0550 Imaging Last Impressions Chest X-Ray 09/25/172008 Signed Impressions: Service Date/Time: Monday, September 25, 2017 20:17 - CONCLUSION: Right IJ catheter in good position. No evidence of pneumothorax. Rocael France MD Head CT 09/25/17 1234 Signed Impressions: Service Date/Time: Monday, September 25, 2017 13:56 - CONCLUSION: 1. Evolving left subdural hygroma which now measures 4 mm without midline shift. 2. Senescent changes with ischemic. Anterior white matter demyelination. 3. No acute abnormality or other significant interval change. Ric Gómez MD Scrotum Ultrasound 09/25/17 0000 Signed Impressions: Service Date/Time: Monday, September 25, 2017 18:02 - CONCLUSION: 1. Normal appearance the left hemiscrotum with a greater than 6 cm cystic area without increased flow. A left testicle is not identified. 2. The right testicle has a normal appearance and intact flow by color Doppler. Rocael France MD Abdomen/Pelvis CT 09/25/17 0000 Signed Impressions: Service Date/Time: Monday, September 25, 2017 14:04 - CONCLUSION: 1. Bilateral pleural effusions and bibasilar atelectasis. 2. Nonspecific periportal edema. No change compared to the prior exam. 3. Anasarca 4. Moderate stool throughout the colon with no evidence of obstruction. 5. No significant changes compared to the prior study. Pavel Alvarenga MD Objective Remarks General: Elderly male in no acute distress. Heart: Irregularly irregular. Lungs: Clear to auscultation bilaterally. No wheezes, rales, or rhonchi. Breathing is nonlabored. Abdomen: Soft, nontender, nondistended. Extremities: No lower extremity edema. Psych: Alert. Oriented only to self. Procedures None Urinary Catheter: Yes Assessment to: Continue Ansari insert reason: Obstruction/Retention Vascular Central Line Catheter: No A/P Assessment and Plan 1. Atrial fibrillation with RVR: Still on Cardizem drip. Heart rate improved ( 80s at the time of my exam). Continue IV digoxin. Continue metoprolol. Appreciate cardiology recommendations. 2. Left subdural hygroma without shift: CT brain on 09/25/17 showed left subdural hygroma 4 mm in size without shift. Monitor. 3. Hypertension: Antihypertensive medications on hold. 4. Dyslipidemia: Statin on hold. 5. Anemia, heme positive stools: Patient and his healthcare surrogate have refused invasive procedures. No further GI workup at this time. Continue PPI. Monitor H&H. Transfuse if necessary. 6. BPH: Flomax and doxazosin on hold secondary to low blood pressure. 7. History of Pseudomonas UTI: Continue current antibiotics. 8. DVT prophylaxis: SCDs. Avoid chemical prophylaxis secondary to possible GI bleed, anemia. 9. Appreciate palliative care assistance. Family considering transitioning to comfort care measures only. Payam Syed MD Sep 28, 2017 09:19
[2017-09-28] MEDS ORDERED: PILL SPLITTER OTHER PRN (09:30)
[2017-09-28] MEDS: CEFEPIME INJ 2,000 MG in SODIUM CHLORIDE 0.9% INJ 100 ML IV SCH ×2 (10:07→21:06)
[2017-09-28 13:37] LABS: HEMATOCRIT 29.6 % (39.0-51.0); HEMOGLOBIN 10.3 GM/DL (13.0-17.0)
--- NOTE | 2017-09-28 16:16 | HHI.HCPN ---
Reason for visit a. To assist with evaluation and management of symptoms including: Abdominal pain, debility, agitation. b. To assist medical decision maker(s) with: better understanding of current medical conditions; weighing benefits/burdens of medical treatment options; making medical treatment decisions. . Subjective/Interval History Palliative care follow-up for further clarifications of goals of care. Patient seen in his room. In bed in no acute distress. Sleeping, briefly opening eyes. Slurred speech, went back to sleep. No signs of discomfort noted. Remains afebrile, stable hemodynamically. Increased oxygen requirement, currently on 4 L via nasal cannula. Hemoglobin remained stable at 10.2. Heart rate in the mid 90s to low 100s, cardiology following. Telephone conversation with patient's son Joey, medical update provided. Son is in [place], unable to visit patient. Goals of therapy is to allow the weekend for clinical improvement. Hospice philosophy and benefits previously introduced during prior hospitalization. Reviewed during this telephone conversation. Son receptive to hospice services should patient's clinical condition does not improve or worsen. Discussed that comfort-directed care with hospice decision can me made at any time during patient's illness trajectory given overall poor prognosis. Son receptive to primary care follow- up on Sunday10/01/17. . Family/friend interactions See interval note. . Advance Directives Living Will: Copy in medical record Health Care Surrogate: Copy in medical record Durable Power of Legal Biller: Copy in medical record Advance Directive Specifics Date completed: 10/18/2007. . Health Care Surrogate(s): Patient elected son Joey Mitchell as healthcare surrogate decision maker. No alternate surrogate. . Documented care wishes: Living will with standard verbiage as it pertains to life-prolonging procedures/ measures. . Significant change in goals: Conservative management short of resuscitation. . Objective Vital Signs Date Time Temp Pulse Resp B/P (MAP) Pulse Ox O2 Delivery O2 Flow Rate FiO2 09/28/17 15:53 92 Nasal Cannula 4.00 09/28/17 12:00 96 09/28/17 12:00 98.5 104 16 117/55 (75) 91 09/28/17 09:37 92 Nasal Cannula 2.00 09/28/17 08:31 85 104/55 09/28/17 08:00 97.9 101 16 104/55 (71) 94 09/28/17 08:00 100 3/9/18 04:52 98.2 111 20 94/51 (65) 97 09/28/17 04:00 98 09/28/17 00:00 111 09/27/17 23:20 98.0 129 20 100/60 (73) 97 09/27/17 21:52 127 119/66 09/27/17 21:26 98.4 127 20 119/66 (83) 95 09/27/17 21:22 95 Nasal Cannula 3.00 09/27/17 20:30 Nasal Cannula 3.00 09/27/17 20:00 96 Intake & Output 09/28/17 09/28/17 07:00 19:00 Intake Total 350 ml Output Total 650 ml Balance -300 ml Intake Oral 0 ml IV Total 350 ml Output Urine Total 650 ml # Bowel Movements 1 Physical Exam CONSTITUTIONAL/GENERAL: This is an adequately nourished patient, in no apparent distress. TUBES/LINES/DRAINS: Nasal cannula, PIV. SKIN: No jaundice, rashes. Large areas of ecchymoses on upper extremities. Skin temperature appropriate. Not diaphoretic. HEAD: Atraumatic. Normocephalic. EYES: Pupils equal and round and reactive. No scleral icterus. No injection or drainage. ENT: Hearing grossly normal. Nose without bleeding or purulent drainage. Moist oral mucosa. NECK: Trachea midline. Supple, nontender. CARDIOVASCULAR: irregular rate and rhythm. Peripheral pulses symmetric. RESPIRATORY/CHEST: Symmetric, unlabored respirations. Clear, diminished to auscultation. GASTROINTESTINAL: Abdomen soft, nondistended. Bowel sounds present. GENITOURINARY: Without palpable bladder distension. Ansari catheter in place. MUSCULOSKELETAL: Extremities without clubbing, cyanosis. No mottling or clubbing. Bilateral pedal edema. NEUROLOGICAL: Sleepy. Slurred speech. Briefly opening eyes to verbal stimuli. PSYCHIATRIC: Unable to evaluate given the above. . Diagnostic Tests Laboratory Laboratory Tests Test 09/26/17 00:40 09/26/17 05:35 09/26/17 15:40 09/26/17 19:08 Hemoglobin 9.1 GM/DL (13.0-17.0) 9.9 GM/DL (13.0-17.0) 11.1 GM/DL (13.0-17.0) 11.0 GM/DL (13.0-17.0) Hematocrit 27.0 % (39.0-51.0) 28.6 % (39.0-51.0) 31.1 % (39.0-51.0) 32.4 % (39.0-51.0) Lactic Acid Level 1.7 mmol/L (0.4-2.0) 1.5 mmol/L (0.4-2.0) 1.5 mmol/L (0.4-2.0) 1.2 mmol/L (0.4-2.0) White Blood Count 8.3 TH/MM3 (4.0-11.0) Red Blood Count 3.13 MIL/MM3 (4.50-5.90) Mean Corpuscular Volume 91.2 FL (80.0-100.0) Mean Corpuscular Hemoglobin 31.6 PG (27.0-34.0) Mean Corpuscular Hemoglobin Concent 34.7 % (32.0-36.0) Red Cell Distribution Width 15.1 % (11.6-17.2) Platelet Count 219 TH/MM3 (150-450) Mean Platelet Volume 7.6 FL (7.0-11.0) Neutrophils (%) (Auto) 77.3 % (16.0-70.0) Lymphocytes (%) (Auto) 8.1 % (9.0-44.0) Monocytes (%) (Auto) 14.2 % (0.0-8.0) Eosinophils (%) (Auto) 0.1 % (0.0-4.0) Basophils (%) (Auto) 0.3 % (0.0-2.0) Neutrophils # (Auto) 6.4 TH/MM3 (1.8-7.7) Lymphocytes # (Auto) 0.7 TH/MM3 (1.0-4.8) Monocytes # (Auto) 1.2 TH/MM3 (0-0.9) Eosinophils # (Auto) 0.0 TH/MM3 (0-0.4) Basophils # (Auto) 0.0 TH/MM3 (0-0.2) CBC Comment DIFF FINAL Differential Comment Prothrombin Time 13.2 SEC (9.8-11.6) Prothromb Time International Ratio 1.3 RATIO Activated Partial Thromboplast Time 30.3 SEC (24.3-30.1) Fibrinogen 320 mg/dL (227-377) Blood Urea Nitrogen 14 MG/DL (7-18) Creatinine 0.65 MG/DL (0.60-1.30) Random Glucose 85 MG/DL (74-106) Total Protein 5.6 GM/DL (6.4-8.2) Albumin 2.2 GM/DL (3.4-5.0) Calcium Level 7.5 MG/DL (8.5-10.1) Phosphorus Level 2.9 MG/DL (2.5-4.9) Magnesium Level 1.8 MG/DL (1.5-2.5) Alkaline Phosphatase 84 U/L (45-117) Aspartate Amino Transf (AST/SGOT) 24 U/L (15-37) Alanine Aminotransferase (ALT/SGPT) 42 U/L (12-78) Total Bilirubin 1.2 MG/DL (0.2-1.0) Sodium Level 138 MEQ/L (136-145) Potassium Level 3.5 MEQ/L (3.5-5.1) Chloride Level 104 MEQ/L (98-107) Carbon Dioxide Level 23.3 MEQ/L (21.0-32.0) Anion Gap 11 MEQ/L (5-15) Estimat Glomerular Filtration Rate 117 ML/MIN (>89) Hemoglobin A1c 5.4 % (4.3-6.0) Ammonia 21 MCMOL/L (11-32) Total Creatine Kinase 111 U/L (39-308) Troponin I LESS THAN 0.02 NG/ML Triglycerides Level 66 MG/DL (42-150) Cholesterol Level 77 MG/DL (120-200) LDL Cholesterol 22 MG/DL (0-99) HDL Cholesterol 42.1 MG/DL (40.0-60.0) Cholesterol/HDL Ratio 1.82 RATIO Amylase Level 16 U/L (25-115) Lipase 39 U/L (73-393) Free Thyroxine 1.13 NG/DL (0.76-1.46) Thyroid Stimulating Hormone 3rd Gen 6.950 uIU/ML (0.358-3.740) Random Cortisol 41.1 MCG/DL Test 09/27/17 03:58 09/27/17 07:10 09/27/17 12:25 09/28/17 01:40 Hemoglobin 10.2 GM/DL (13.0-17.0) 10.7 GM/DL (13.0-17.0) 9.8 GM/DL (13.0-17.0) Hematocrit 29.4 % (39.0-51.0) 31.2 % (39.0-51.0) 28.4 % (39.0-51.0) Blood Urea Nitrogen 11 MG/DL (7-18) Creatinine 0.52 MG/DL (0.60-1.30) Random Glucose 81 MG/DL (74-106) Calcium Level 7.5 MG/DL (8.5-10.1) Sodium Level 141 MEQ/L (136-145) Potassium Level 3.0 MEQ/L (3.5-5.1) Chloride Level 108 MEQ/L (98-107) Carbon Dioxide Level 24.8 MEQ/L (21.0-32.0) Anion Gap 8 MEQ/L (5-15) Estimat Glomerular Filtration Rate 152 ML/MIN (>89) Lactic Acid Level 1.2 mmol/L (0.4-2.0) Test 09/28/17 05:50 09/28/17 13:00 White Blood Count 6.8 TH/MM3 (4.0-11.0) Red Blood Count 3.23 MIL/MM3 (4.50-5.90) Hemoglobin 10.2 GM/DL (13.0-17.0) 10.3 GM/DL (13.0-17.0) Hematocrit 29.5 % (39.0-51.0) 29.6 % (39.0-51.0) Mean Corpuscular Volume 91.4 FL (80.0-100.0) Mean Corpuscular Hemoglobin 31.5 PG (27.0-34.0) Mean Corpuscular Hemoglobin Concent 34.4 % (32.0-36.0) Red Cell Distribution Width 15.6 % (11.6-17.2) Platelet Count 351 TH/MM3 (150-450) Mean Platelet Volume 6.8 FL (7.0-11.0) Neutrophils (%) (Auto) 66.2 % (16.0-70.0) Lymphocytes (%) (Auto) 11.6 % (9.0-44.0) Monocytes (%) (Auto) 18.9 % (0.0-8.0) Eosinophils (%) (Auto) 2.8 % (0.0-4.0) Basophils (%) (Auto) 0.5 % (0.0-2.0) Neutrophils # (Auto) 4.5 TH/MM3 (1.8-7.7) Lymphocytes # (Auto) 0.8 TH/MM3 (1.0-4.8) Monocytes # (Auto) 1.3 TH/MM3 (0-0.9) Eosinophils # (Auto) 0.2 TH/MM3 (0-0.4) Basophils # (Auto) 0.0 TH/MM3 (0-0.2) CBC Comment AUTO DIFF Differential Total Cells Counted 100 Neutrophils % (Manual) 80 % (16-70) Band Neutrophils % 4 % (0-6) Lymphocytes % 4 % (9-44) Monocytes % 8 % (0-8) Eosinophils % 2 % (0-4) Neutrophils # (Manual) 5.8 TH/MM3 (1.8-7.7) Myelocytes 2 % (0-0) Differential Comment FINAL DIFF MANUAL Platelet Estimate NORMAL (NORMAL) Platelet Morphology Comment NORMAL (NORMAL) Ovalocytes 1+ (NORMAL) Blood Urea Nitrogen 7 MG/DL (7-18) Creatinine 0.56 MG/DL (0.60-1.30) Random Glucose 72 MG/DL (74-106) Calcium Level 7.5 MG/DL (8.5-10.1) Sodium Level 144 MEQ/L (136-145) Potassium Level 3.6 MEQ/L (3.5-5.1) Chloride Level 112 MEQ/L (98-107) Carbon Dioxide Level 24.7 MEQ/L (21.0-32.0) Anion Gap 7 MEQ/L (5-15) Estimat Glomerular Filtration Rate 139 ML/MIN (>89) Result Diagram: 09/28/17 1300 09/28/17 0550 Microbiology Microbiology Date/Time Source Procedure Growth Status 09/25/17 20:50 Stool Stool Stool Occult Blood (JANIE) Pending Ordered 09/25/17 19:10 Stool Stool Stool Occult Blood (JANIE) - Final HEMOCCULT POSITIVE Complete Assessment and Plan Disease Oriented Problem List: (1) GI bleed (2) Atrial fibrillation with RVR (3) Bilateral pleural effusion (4) UTI (urinary tract infection) (5) Subdural hygroma (6) Anemia (7) Hypotension (8) BPH (9) Physical deconditioning Symptom Scale: (1) Abdominal pain 0-10 Scale: Unable to quantify (2) Agitation 0-10 Scale: Unable to quantify (3) Debility 0-10 Scale: Unable to quantify Pertinent Non-Medical Issues Psychosocial: Patient originally from [place]. Moved to [place] about 50 years ago. Recently working installing and maintaining phone systems, currently retired. Patient has been 3 times and . He has 3 sons. Spiritual: Pentecostal isabel. Legal: Advance directives completed. Ethical issues impacting care: No ethical issues identified. . Important Contacts Son/HCS Joey Mitchell . . Prognosis Mr. Mitchell is an 82-year-old male with medical history significant for chronic subdural hygroma, hypertension, hyperlipidemia, BPH, toxic encephalopathy, A. fib, prior GI bleed and kidney failure. Patient with recent hospitalization secondary to respiratory failure, kidney injury and GI bleed. Patient with progressive decline and multiple complications. Remains at high risk for further complications, continue decline and . . Code Status: No Code Plan * CODE STATUS: No code. DNR/DNI. This has been confirmed by patient's son/LOBO Cook. * HEALTHCARE DECISION-MAKING: Patient with very limited participation and medical decision making secondary to confusion, hallucinations. Advanced directives completed, son Joey Mitchell is a designated healthcare surrogate decision-maker. No alternate surrogate. Palliative care recommends shared decision making with patient and son Joey given intermittent confusion, hallucinations. * GOALS OF CARE: Son electing conservative management short of NO resuscitation , GI workup declined. Son is in [place], unable to visit patient. Goals of therapy is to allow the weekend for clinical improvement. Hospice philosophy and benefits previously introduced during prior hospitalization. Reviewed during this telephone conversation. Son receptive to hospice services should patient's clinical condition does not improve or worsen. Discussed that comfort -directed care with hospice decision can me made at any time during patient's illness trajectory given overall poor prognosis. Son receptive to palliative care follow-up on Sunday10/01/17. Son made aware that patient remains at high risk for further complications, continued decline and . * SYMPTOMS: = Abdominal pain: Appears chronic in nature. GI following. Patient with multiple ED visits secondary to abdominal pain. Previously completed full GI workup with colonoscopy and EGD. Has declined additional workup for GI bleed. H&H stable. = Agitation/hallucinations: Patient was seen by psychiatry during prior admission. Diagnosed with unspecified psychosis. Currently on Seroquel 50mg BID. Trazodone 50 mg 3 times daily. Geodon 20 mg available as needed for severe agitation. = Debility: Progressive. Worsened since most recent acute hospitalization. Patient was discharged to rehabilitation on 09/10. PT currently following. Recommending PT at rehab. * Palliative care contact information has been provided to patient and family. * Palliative care will continue to follow up for further clarification of goals of care as patient's clinical course continues to evolve. . Time Spent Total Floor Time (mins): 32 (Total time to include review of medical records, physical exam, goals with a conversation with son. ) >50% Counseling/Coord of Care: Yes Attestation To help prompt me to consider important information that might be impacting today's encounter and assessment, information from prior notes written by myself or my colleagues may have been "brought forward" into today's note. My signature on this note, however, is an attestation that I personally performed the exam, history, and/or decision-making noted today, and, unless otherwise indicated, the interactions with patient, family, and staff as well as the review of records all occurred today. I also attest that the listed assessment and stated plan reflect my best clinical judgment today based on the combination of historical information, prior notes, and today's exam/ interactions. When time spent is documented, it refers only to time spent today by the signer, or if indicated, combined time spent today by collaborating physician/nurse practitioner. Talya Lara Sep 28, 2017 16:16
[2017-09-28] MEDS ORDERED: D5-NS + KCL 20 MEQ INJ 1,000 ML IV SCH (21:15)
[2017-09-29] VITALS (12 sets, daily range): BP systolic 77–161; BP diastolic 49–87; PULSE 89–134; RESP 18–26; TEMP 98–99; O2SAT 80–98
[2017-09-29] MEDS: CHLORHEXIDINE GLUCONATE 2 % 1 PACK (2 CLOTHS) TOP SCH (00:09)
[2017-09-29] MEDS: MORPHINE SULFATE 4 MG/ML INJ IV PUSH PRN ×2 (00:43→03:30)
--- NOTE | 2017-09-29 02:01 | RADRPT ---
EXAM DATE/TIME: 09/29/2017 01:35 [place] COMPARISON: CHEST SINGLE AP, September 25, 2017, 20:17. INDICATIONS : Congestion. Cough. MEDICAL HISTORY : None. SURGICAL HISTORY : None. ENCOUNTER: Subsequent ACUITY: 3 days PAIN SCORE: Non-responsive. LOCATION: Bilateral chest FINDINGS: There are worsening bilateral airspace opacities, basilar predominant on the right and perihilar/basi lar predominant on the left. Small right and [id number] left pleural effusions are present, la rger. No pneumothorax. Mild cardiomegaly not significantly changed. There is a right internal jugular central venous catheter again noted, tip in the superior vena cava. CONCLUSION: Worsening bilateral parenchymal opacities and pleural effusions. Jose Carlos Paez MD on September 29, 2017 at 1:59 Board Certified Radiologist. This report was verified electronically.
[2017-09-29] MEDS: metroNIDAZOLE 500 MG INJ 100 ML IV SCH ×2 (03:30→09:13)
[2017-09-29] MEDS: RESP: ALBUTEROL 2.5 MG/IPRATROPIUM 0.5 MG NEB (SCH) INH ×2 (03:49→10:19)
[2017-09-29] MEDS: DILTIAZEM INJ 125 MG in SODIUM CHLORIDE 0.9% INJ 100 ML IV PRN (04:35)
[2017-09-29] MEDS ORDERED: FUROSEMIDE 20 MG/2 ML VIAL IV PUSH ONE (05:15)
--- NOTE | 2017-09-29 05:37 | HHI.PR ---
Addendum to Inpatient Note Addendum Reason: Additional Documentation Additional Information Patient with declining respiratory status overnight. Finally placed upon Bi- Pap this morning due to hypoxia unresponsive to 100% nonrebreather. Patient became severely hypotensive and unresponsive. The patient's son was unable to be reached by nursing staff but the Palliative Care progress notes from 09/28/17 are clear and indicate that the patient's son, who is also his HCS, did not want any resuscitative efforts to prolong the dying process. We are honoring those wishes and allowing the patient to naturally without any CPR or intubation. Sofi Jin Sep 29, 2017 05:37
[2017-09-29] MEDS: METOPROLOL TARTRATE 25 MG TAB PO SCH (05:42)
[2017-09-29 05:45] LABS: AUTOMATED NEUTROPHIL # 5.4 TH/MM3 (1.8-7.7); BASOPHIL % 0.3 % (0.0-2.0); EOSINOPHIL % 0.3 % (0.0-4.0); HEMATOCRIT 30.4 % (39.0-51.0); HEMOGLOBIN 10.4 GM/DL (13.0-17.0); LYMPH % 7.5 % (9.0-44.0); LYMPHOCYTE # 0.5 TH/MM3 (1.0-4.8); MEAN CELL VOLUME 91.4 FL (80.0-100.0); MEAN CORPUSCULAR HEMOGLOBIN 31.3 PG (27.0-34.0); MEAN CORPUSCULAR HGB CONC 34.2 % (32.0-36.0); MEAN PLATELET VOLUME 6.7 FL (7.0-11.0); MONOCYTE # 1.1 TH/MM3 (0-0.9); NEUT % 75.9 % (16.0-70.0); PLATELET COUNT 361 TH/MM3 (150-450); RED BLOOD COUNT 3.33 MIL/MM3 (4.50-5.90); RED CELL DISTRIBUTION WIDTH 15.7 % (11.6-17.2); WHITE BLOOD COUNT 7.1 TH/MM3 (4.0-11.0)
[2017-09-29 06:11] LABS: BICARBONATE 25.1 MEQ/L (21.0-32.0); CALCIUM 7.4 MG/DL (8.5-10.1); CREATININE 0.56 MG/DL (0.60-1.30)
[2017-09-29] MEDS ORDERED: SODIUM CHLORID 0.9% 500 ML INJ 500 ML IV PRN (06:45)
[2017-09-29 07:21] LABS: CALCIUM-PROTEIN CORRECTED 8.6 MG/DL (8.5-10.1)
[2017-09-29] MEDS: INSULIN NovoLIN REGULAR SUPPLEMENTAL SCALE SQ SCH (08:00)
[2017-09-29] MEDS: SUCRALFATE 1 GM/10 ML CUP PO SCH (08:00)
[2017-09-29] MEDS: SODIUM CHLORIDE 0.9% FLUSH 10 ML FLUSH IV FLUSH SCH ×3 (08:21→09:14)
[2017-09-29] MEDS: ARTIFICIAL TEARS OPTH SOLN 15 ML BTL EACH EYE SCH (08:21)
[2017-09-29] MEDS: DIGOXIN 0.5 MG/2 ML VIAL IV PUSH SCH (08:21)
[2017-09-29] MEDS: traZODone HCL 50 MG TAB PO SCH (08:26)
[2017-09-29] MEDS: DOCUSATE SODIUM 50 MG/SENNA 8.6 MG TAB PO SCH (08:26)
[2017-09-29] MEDS: QUEtiapine FUMARATE 25 MG TAB PO SCH (08:26)
--- NOTE | 2017-09-29 08:44 | HHI.PR ---
Subjective Remarks Follow up a-fib with RVR, respiratory failure. Patient developed worsening respiratory status earlier this morning. Was briefly placed on BiPAP. Now on nonrebreather mask with O2 at 15L. BP has been low. NS bolus being infused now. Patient does not respond to questions. Objective Vitals Vital Signs Date Time Temp Pulse Resp B/P (MAP) Pulse Ox O2 Delivery O2 Flow Rate FiO2 09/29/17 08:00 98.3 112 18 85/54 (64) 82 09/29/17 06:42 89 18 78/49 (59) 81 09/29/17 05:40 Non-Rebreather 15.00 09/29/17 05:30 Bi-Pap 50 09/29/17 05:25 97 09/29/17 05:05 116 26 77/52 (60) 85 09/29/17 05:00 Non-Rebreather 15.00 85 09/29/17 04:35 103 09/29/17 04:00 107 09/29/17 04:00 99.0 91 20 161/87 (111) 95 09/29/17 03:51 90 Non-Rebreather 15.00 09/29/17 02:26 96 Partial Non-Rebreather 09/29/17 00:50 93 Partial Non-Rebreather 09/29/17 00:25 86 Venturi Mask 6.00 50 09/29/17 00:00 98.0 94 20 109/55 (73) 98 09/29/17 00:00 97 09/28/17 22:45 89 09/28/17 21:21 94 Nasal Cannula 2.00 09/28/17 20:00 98.4 97 20 119/55 (76) 92 09/28/17 20:00 100 09/28/17 20:00 Nasal Cannula 4.00 09/28/17 16:00 98.1 88 20 99/58 (72) 92 09/28/17 15:53 92 Nasal Cannula 4.00 09/28/17 12:00 96 09/28/17 12:00 98.5 104 16 117/55 (75) 91 09/28/17 09:37 92 Nasal Cannula 2.00 I/O 09/28/17 09/28/17 09/28/17 09/29/17 09/29/17 09/29/17 07:00 15:00 23:00 07:00 15:00 23:00 Intake Total 350 ml 1074 ml 687 ml Output Total 650 ml 50 ml Balance -300 ml 1074 ml 637 ml Intake Oral 0 ml IV Total 350 ml 1074 ml 687 ml Output Urine Total 650 ml 50 ml # Bowel Movements 1 2 2 Result Diagram: 09/29/17 0515 09/29/17 0515 Imaging Last Impressions Chest X-Ray 09/29/17 0000 Signed Impressions: Service Date/Time: Friday, September 29, 2017 01:35 - CONCLUSION: Worsening bilateral parenchymal opacities and pleural effusions. Jose Carlos Paez MD Head CT 09/25/17 1234 Signed Impressions: Service Date/Time: Monday, September 25, 2017 13:56 - CONCLUSION: 1. Evolving left subdural hygroma which now measures 4 mm without midline shift. 2. Senescent changes with ischemic. Anterior white matter demyelination. 3. No acute abnormality or other significant interval change. Ric Gómez MD Scrotum Ultrasound 09/25/17 0000 Signed Impressions: Service Date/Time: Monday, September 25, 2017 18:02 - CONCLUSION: 1. Normal appearance the left hemiscrotum with a greater than 6 cm cystic area without increased flow. A left testicle is not identified. 2. The right testicle has a normal appearance and intact flow by color Doppler. Rocael France MD Abdomen/Pelvis CT 09/25/17 0000 Signed Impressions: Service Date/Time: Monday, September 25, 2017 14:04 - CONCLUSION: 1. Bilateral pleural effusions and bibasilar atelectasis. 2. Nonspecific periportal edema. No change compared to the prior exam. 3. Anasarca 4. Moderate stool throughout the colon with no evidence of obstruction. 5. No significant changes compared to the prior study. Pavle Alvarenga MD Objective Remarks General: Elderly male on nonrebreather mask. Heart: Irregular, tachycardic. Lungs: Coarse breath sounds. Abdomen: Soft, nondistended. Extremities: 2+ left ankle edema, trace-1+ right lower extremity edema. Psych: Does not respond to verbal stimuli. Procedures None Urinary Catheter: Yes Assessment to: Continue Ansari insert reason: Obstruction/Retention Vascular Central Line Catheter: No A/P Assessment and Plan 1. Atrial fibrillation with RVR: Appreciate cardiology recommendations. Cardizem drip on hold due to low BP. Heart rate in 110s. 2. Left subdural hygroma without shift: CT brain on 09/25/17 showed left subdural hygroma 4 mm in size without shift. Monitor. 3. Hypertension: Antihypertensive medications on hold. 4. Dyslipidemia: Statin on hold. 5. Anemia, heme positive stools: Patient and his healthcare surrogate have refused invasive procedures. No further GI workup at this time. Continue PPI. Monitor H&H. Transfuse if necessary. 6. BPH: Flomax and doxazosin on hold secondary to low blood pressure. 7. History of Pseudomonas UTI: Continue current antibiotics. 8. DVT prophylaxis: SCDs. Avoid chemical prophylaxis secondary to possible GI bleed, anemia. 9. Acute respiratory failure: Patient's respiratory status is deteriorating. He required BiPAP for a brief period this morning. Now on 15L per nonrebreather. Patient does not want intubation. 10. Appreciate palliative care assistance. Family considering transitioning to comfort care measures only. I spoke again with the patient's son Joey Mitchell. I explained to him that his father has declined clinically this morning. He was made aware that the patient could continue to decline and may occur today. At this time we will continue IV medications and supplemental oxygen. We will not pursue more aggressive treatments/workup at this time. Patient's son would like Hospice consult and likely transition to comfort care measures only after he speaks with Hospice. Payam Syed MD Sep 29, 2017 08:44
[2017-09-29 09:02] LABS: BANDS 30 % (0-6); BASOPHILS 1 % (0-2); BLASTS 1 % (0-0); DOHLE BODIES PRESENT (NONE SEEN); LYMPHOCYTES 2 % (9-44); MONOCYTES 9 % (0-8); NEUTROPHIL # MANUAL DIFF 6.1 TH/MM3 (1.8-7.7); POLYS (SEG NEUTROPHILS) 56 % (16-70)
[2017-09-29] MEDS: PANTOPRAZOLE SODIUM 40 MG VIAL IV PUSH SCH (09:13)
[2017-09-29] MEDS: MULTIVITAMIN INJ 10 ML, THIAMINE INJ 100 MG, FOLIC ACID INJ 1 MG in SODIUM CHLORID 0.9%... IV SCH (09:13)
[2017-09-29] MEDS: CEFEPIME INJ 2,000 MG in SODIUM CHLORIDE 0.9% INJ 100 ML IV SCH (09:14)
--- NOTE | 2017-09-29 10:31 | PD.CARD.PN ---
Subjective Subjective Remarks Pt somewhat confused, denies pain or sob but low O2 sats on high flow O2 (pt is dnr); still RVR with his afib Objective Medications Current Medications Medications (Trade) Dose Ordered Sig/Ortega Route Start Time Stop Time Status Last Admin (NS Flush) 2 ml UNSCH PRN IV FLUSH 09/25/17 15:45 09/27/17 04:06 (NS Flush) 2 ml BID IV FLUSH 09/25/17 21:00 09/28/17 21:05 (Narcan Inj) 0.4 mg UNSCH PRN IV PUSH 09/25/17 15:45 Ciprofloxacin/ Dextrose 200 ml @ 200 mls/hr Q12H IV 09/25/17 19:00 Future Hold (Bentyl) 10 mg TID PRN PO 09/25/17 20:15 09/26/17 20:12 (Carafate Liq) 1 gm ACHS PO 09/25/17 21:00 09/28/17 21:05 (Desyrel) 50 mg TID PO 09/26/17 09:00 09/28/17 17:41 (SEROquel) 50 mg BID PO 09/25/17 21:00 09/28/17 21:04 (NS Flush) DAILY IV FLUSH 09/26/17 09:00 09/29/17 09:14 (NS Flush) UNSCH PRN IV FLUSH 09/25/17 20:15 09/28/17 08:36 (Brethine Inj) 1 mg UNSCH PRN SQ 09/25/17 20:15 Cefepime HCl 2000 mg/Sodium Chloride 100 ml @ 200 mls/hr Q12H IV 09/25/17 22:00 09/29/17 09:14 Metronidazole 100 ml @ 100 mls/hr Q6H IV 09/25/17 21:00 09/29/17 09:13 (NS Flush) 2 ml UNSCH PRN IV FLUSH 09/25/17 20:30 (NS Flush) 2 ml BID IV FLUSH 09/25/17 21:00 09/28/17 08:36 (Tylenol) 650 mg Q6H PRN PO 09/25/17 20:30 (Morphine Inj) 2 mg Q2H PRN IV PUSH 09/25/17 20:30 09/27/17 16:52 (Protonix Inj) 40 mg DAILY IV PUSH 09/26/17 09:00 09/29/17 09:13 (Tears Naturale Opth Soln) 1 drop TID EACH EYE 09/26/17 09:00 09/27/17 13:00 (Zofran Inj) 4 mg Q6H PRN IV PUSH 09/25/17 20:30 (Duoneb Neb) 1 ampule Q6HR NEB INH 09/25/17 22:00 09/29/17 10:19 (Albuterol Neb) 2.5 mg Q2HR NEB PRN INH 09/25/17 20:30 09/29/17 00:23 Miscellaneous Information 1 Q361D XX 09/25/17 20:30 (Chlorhexidine 2% Cloth) 3 pack Taper DAILY@04 TOP 09/26/17 04:00 09/22/18 03:59 (Chlorhexidine 2% Cloth) 3 pack UNSCH PRN TOP 09/25/17 20:30 (Octavia-Colace) 1 tab BID PO 09/25/17 21:00 09/27/17 21:54 (Milk Of Magnesia Liq) 30 ml Q12H PRN PO 09/25/17 20:30 (Senokot) 17.2 mg Q12H PRN PO 09/25/17 20:30 (Dulcolax Supp) 10 mg DAILY PRN RECTAL 09/25/17 20:30 (Lactulose Liq) 30 ml DAILY PRN PO 09/25/17 20:30 (D50w (Vial) Inj) 50 ml UNSCH PRN IV PUSH 09/25/17 20:30 09/28/17 21:04 (Glucagon Inj) 1 mg UNSCH PRN OTHER 09/25/17 20:30 (NovoLIN R SUPPLEMENTAL SCALE) 1 ACHS SLIDING SCALE SQ 09/25/17 21:00 Levofloxacin/ Dextrose 150 ml @ 100 mls/hr Q24H IV 09/25/17 23:00 09/28/17 22:45 Multivitamins 10 ml/Thiamine HCl 100 mg/Folic Acid 1 mg/Sodium Chloride 511.2 ml @ 125 mls/hr DAILY IV 09/26/17 09:00 09/29/17 09:13 (Morphine Inj) 4 mg Q2H PRN IV PUSH 3/7/18 11:30 09/29/17 03:30 (Geodon Inj) 20 mg Q12H PRN IM 09/26/17 11:30 09/26/17 12:32 (Lanoxin Inj) 0.25 mg DAILY IV PUSH 09/27/17 09:00 09/28/17 08:36 Diltiazem HCl 125 mg/Sodium Chloride 125 ml @ 5 mls/hr TITRATE PRN IV 09/27/17 05:45 09/29/17 04:35 (Lopressor Inj) 5 mg Q6H IV PUSH 09/27/17 18:00 Future Hold 09/27/17 17:59 (Lopressor) 12.5 mg Q8HR PO 09/28/17 14:00 09/28/17 22:46 (Pill Splitter) 1 ea UNSCH PRN OTHER 09/28/17 09:30 Sodium Chloride 500 ml @ 500 mls/hr Q1H PRN IV 09/29/17 06:45 09/29/17 06:52 Vital Signs / I&O Vital Signs Date Time Temp Pulse Resp B/P (MAP) Pulse Ox O2 Delivery O2 Flow Rate FiO2 09/29/17 09:27 78/52 (61) 09/29/17 08:00 98.3 112 18 85/54 (64) 82 09/29/17 06:42 89 18 78/49 (59) 81 09/29/17 05:40 Non-Rebreather 15.00 09/29/17 05:30 Bi-Pap 50 09/29/17 05:25 97 09/29/17 05:05 116 26 77/52 (60) 85 09/29/17 05:00 Non-Rebreather 15.00 85 09/29/17 04:35 103 09/29/17 04:00 107 09/29/17 04:00 99.0 91 20 161/87 (111) 95 09/29/17 03:51 90 Non-Rebreather 15.00 09/29/17 02:26 96 Partial Non-Rebreather 09/29/17 00:50 93 Partial Non-Rebreather 09/29/17 00:25 86 Venturi Mask 6.00 50 09/29/17 00:00 98.0 94 20 109/55 (73) 98 09/29/17 00:00 97 09/28/17 22:45 89 09/28/17 21:21 94 Nasal Cannula 2.00 09/28/17 20:00 98.4 97 20 119/55 (76) 92 09/28/17 20:00 100 09/28/17 20:00 Nasal Cannula 4.00 09/28/17 16:00 98.1 88 20 99/58 (72) 92 09/28/17 15:53 92 Nasal Cannula 4.00 09/28/17 12:00 96 09/28/17 12:00 98.5 104 16 117/55 (75) 91 I/O 09/28/17 09/28/17 09/28/17 09/29/17 09/29/17 09/29/17 07:00 15:00 23:00 07:00 15:00 23:00 Intake Total 350 ml 1074 ml 687 ml Output Total 650 ml 50 ml Balance -300 ml 1074 ml 637 ml Intake Oral 0 ml IV Total 350 ml 1074 ml 687 ml Output Urine Total 650 ml 50 ml # Bowel Movements 1 2 2 Physical Exam GENERAL: elderly, somewhat confused. CARDIOVASCULAR: irregularly irregular/mildly rapid RESPIRATORY: Clear to auscultation. Breath sounds equal bilaterally. No wheezes , rales, or rhonchi. GASTROINTESTINAL: Abdomen soft, non-tender, nondistended. Normal, active bowel sounds MUSCULOSKELETAL: Extremities without clubbing, cyanosis, or edema. NEURO: Not oriented Laboratory Laboratory Tests Test 09/28/17 13:00 09/29/17 04:31 09/29/17 05:15 Hemoglobin 10.3 GM/DL 10.4 GM/DL Hematocrit 29.6 % 30.4 % Blood Gas Puncture Site RT BRACHIAL Blood Gas Patient Temperature 98.6 Blood Gas HCO3 23 mmol/L Blood Gas Base Excess -1.8 mmol/L Blood Gas Oxygen Saturation 88 % Arterial Blood pH 7.36 Arterial Blood Partial Pressure CO2 41 mmHg Arterial Blood Partial Pressure O2 59 mmHg Arterial Blood Oxygen Content 12.7 Vol % Arterial Blood Carboxyhemoglobin 1.0 % Arterial Blood Methemoglobin 0.9 % Blood Gas Hemoglobin 10.2 G/DL Oxygen Delivery Device NRB Blood Gas Liter Flow 15 L/M White Blood Count 7.1 TH/MM3 Red Blood Count 3.33 MIL/MM3 Mean Corpuscular Volume 91.4 FL Mean Corpuscular Hemoglobin 31.3 PG Mean Corpuscular Hemoglobin Concent 34.2 % Red Cell Distribution Width 15.7 % Platelet Count 361 TH/MM3 Mean Platelet Volume 6.7 FL Neutrophils (%) (Auto) 75.9 % Lymphocytes (%) (Auto) 7.5 % Monocytes (%) (Auto) 16.0 % Eosinophils (%) (Auto) 0.3 % Basophils (%) (Auto) 0.3 % Neutrophils # (Auto) 5.4 TH/MM3 Lymphocytes # (Auto) 0.5 TH/MM3 Monocytes # (Auto) 1.1 TH/MM3 Eosinophils # (Auto) 0.0 TH/MM3 Basophils # (Auto) 0.0 TH/MM3 CBC Comment AUTO DIFF Differential Total Cells Counted 100 Neutrophils % (Manual) 56 % Band Neutrophils % 30 % Lymphocytes % 2 % Monocytes % 9 % Eosinophils % 1 % Basophils % 1 % Neutrophils # (Manual) 6.1 TH/MM3 Differential Comment FINAL DIFF MANUAL Blastocytes 1 % Dohle Bodies PRESENT Platelet Estimate NORMAL Platelet Morphology Comment NORMAL Blood Urea Nitrogen 6 MG/DL Creatinine 0.56 MG/DL Random Glucose 95 MG/DL Total Protein 5.0 GM/DL Calcium Level 7.4 MG/DL Magnesium Level 2.0 MG/DL Sodium Level 146 MEQ/L Potassium Level 3.3 MEQ/L Chloride Level 114 MEQ/L Carbon Dioxide Level 25.1 MEQ/L Anion Gap 7 MEQ/L Estimat Glomerular Filtration Rate 139 ML/MIN Protein Corrected Calcium 8.6 MG/DL Imaging Last Impressions Chest X-Ray 09/29/17 0000 Signed Impressions: Service Date/Time: Friday, September 29, 2017 01:35 - CONCLUSION: Worsening bilateral parenchymal opacities and pleural effusions. Jose Carlos Paez MD Head CT 09/25/17 1234 Signed Impressions: Service Date/Time: Monday, September 25, 2017 13:56 - CONCLUSION: 1. Evolving left subdural hygroma which now measures 4 mm without midline shift. 2. Senescent changes with ischemic. Anterior white matter demyelination. 3. No acute abnormality or other significant interval change. Ric Gómez MD Scrotum Ultrasound 09/25/17 0000 Signed Impressions: Service Date/Time: Monday, September 25, 2017 18:02 - CONCLUSION: 1. Normal appearance the left hemiscrotum with a greater than 6 cm cystic area without increased flow. A left testicle is not identified. 2. The right testicle has a normal appearance and intact flow by color Doppler. Rocael France MD Abdomen/Pelvis CT 09/25/17 0000 Signed Impressions: Service Date/Time: Monday, September 25, 2017 14:04 - CONCLUSION: 1. Bilateral pleural effusions and bibasilar atelectasis. 2. Nonspecific periportal edema. No change compared to the prior exam. 3. Anasarca 4. Moderate stool throughout the colon with no evidence of obstruction. 5. No significant changes compared to the prior study. Pavel Alvarenga MD Last 24 hours Impressions Chest X-Ray 09/29/17 0000 Signed Impressions: Service Date/Time: Friday, September 29, 2017 01:35 - CONCLUSION: Worsening bilateral parenchymal opacities and pleural effusions. Jose Carlos Paez MD Assessment and Plan Problem List: (1) Chronic atrial fibrillation ICD Codes: I48.2 - Chronic atrial fibrillation Status: Chronic Plan: Stable overnight. HR's still elevated, even while asleep. Suspect elevation in HR's multifactorial in etiology. Patient probably still dehydrated , may have some element of alcohol withdrawal, breathing treatments. No evidence for CHF or ACS. Not much room to increase meds w/ low BP Patient not good candidate for anticoagulation therapy. REC continue rehydration continue IV Cardizem, IV digoxin, can change to oral when possible continue metoprolol consider at least baby aspirin if OK from GI standpoint Prognosis poor (2) Hypertension ICD Codes: I10 - Essential (primary) hypertension Status: Chronic Plan: Hypertension not active issue; low currently Problem Qualifiers (1) Hypertension: Qualified Codes: I10 - Essential (primary) hypertension Denny Tapia MD Sep 29, 2017 10:31
== END 2017-09-29 15:40 | disposition expired | DRG 689 ==
LOC: NEPE 12:07 → NEDA 15:54 → OBSVTOIN 17:38 → NEDH 21:53 → N04A 09-26 15:02
PROVIDERS: ADMIT Family Medicine; ATTEND Family Medicine
PROC: 02HV33Z Insertion of Infusion Device into Superior Vena Cava, Percutaneous Approach (ICD-10-PCS; principal; 2017-09-25)
PROC: 5A09357 Assistance with Respiratory Ventilation, Less than 24 Consecutive Hours, Continuous Positive Airway Pressure (ICD-10-PCS; 2017-09-25)
PROC: 30233N1 Transfusion of Nonautologous Red Blood Cells into Peripheral Vein, Percutaneous Approach (ICD-10-PCS; 2017-09-25)
DX: N39.0 Urinary tract infection, site not specified (principal); J96.01 Acute respiratory failure with hypoxia; R57.8 Other shock; J90 Pleural effusion, not elsewhere classified; I95.9 Hypotension, unspecified; I48.2 Chronic atrial fibrillation; E88.09 Other disorders of plasma-protein metabolism, not elsewhere classified; B96.5 Pseudomonas (aeruginosa) (mallei) (pseudomallei) as the cause of diseases classified elsewhere; E86.0 Dehydration; J98.11 Atelectasis; D50.0 Iron deficiency anemia secondary to blood loss (chronic); I10 Essential (primary) hypertension; F17.210 Nicotine dependence, cigarettes, uncomplicated; F32.9 Major depressive disorder, single episode, unspecified; R00.0 Tachycardia, unspecified; D18.1 Lymphangioma, any site; Z66 Do not resuscitate; E78.5 Hyperlipidemia, unspecified; K21.9 Gastro-esophageal reflux disease without esophagitis; I25.10 Atherosclerotic heart disease of native coronary artery without angina pectoris; Z96.611 Presence of right artificial shoulder joint; K59.00 Constipation, unspecified; N40.0 Benign prostatic hyperplasia without lower urinary tract symptoms; Z87.19 Personal history of other diseases of the digestive system; Z86.010 Personal history of colon polyps; R60.1 Generalized edema; F29 Unspecified psychosis not due to a substance or known physiological condition; Z87.11 Personal history of peptic ulcer disease; Z85.820 Personal history of malignant melanoma of skin; R10.10 Upper abdominal pain, unspecified
CPT/HCPCS: 36430; 36600; 70450; 71045; 74177; 76870; 80048; 80053; 80061; 81001; 82140; 82150; 82272; 82533; 82550; 82552; 82805; 82948; 83036; 83605; 83690; 83735; 84100; 84155; 84439; 84443; 84484; 85007; 85014; 85018; 85025; 85027; 85384; 85610; 85730; 86850; 86900; 86901; 86920; 87086; 93005; 93975; 94640; 94664; 96361; 96365; 96368; C9113; J0456; J0692; J0696; J1160; J1940; J1956; J2270; J3370; J3411; J3480; J3486; J7030; J7040; J7050; J7613; P9016; Q9967